=== PATIENT | female | born 1950 | race Caucasian/White ===

== ENCOUNTER 2019-05-17 10:52 | Outpatient (RCR) | payer MEDICARE, SELFPAY | END 2019-05-21 00:01 | LOC: ONCMED 10:52 | PROVIDERS: Family Provider Internal Medicine; Visit Provider Nurse Practitioner | DX: C90.00 Multiple myeloma not having achieved remission (principal); D70.1 Agranulocytosis secondary to cancer chemotherapy; T45.1X5A Adverse effect of antineoplastic and immunosuppressive drugs, initial encounter; I10 Essential (primary) hypertension; E78.5 Hyperlipidemia, unspecified; I25.10 Atherosclerotic heart disease of native coronary artery without angina pectoris; E03.9 Hypothyroidism, unspecified; K21.9 Gastro-esophageal reflux disease without esophagitis; M79.7 Fibromyalgia; M19.90 Unspecified osteoarthritis, unspecified site; F41.8 Other specified anxiety disorders; G89.29 Other chronic pain; M54.9 Dorsalgia, unspecified; Z95.5 Presence of coronary angioplasty implant and graft; Z79.899 Other long term (current) drug therapy; Z79.891 Long term (current) use of opiate analgesic; Z87.891 Personal history of nicotine dependence; Z79.02 Long term (current) use of antithrombotics/antiplatelets | CPT/HCPCS: 80053 ×3; 82784 ×6; 83615; 83883 ×4; 84155; 84156; 84165; 84166; 84439; 84443; 85025 ×3; 85651 ×2; 99214 ×2 ==

== ENCOUNTER 2019-05-23 06:37 | Outpatient (RCR) | payer MEDICARE, SELFPAY ==
--- NOTE | 2019-05-27 08:02 | ONC FU_ITS ---
Dr. Sanchez Patient Follow-Up Note Patient: Karely Armenta Unit #: [id number]: 1950 Dicatated By: Sean Sanchez M.D.Date of Visit:May 23, 2019 Onc Med Follow-up/Prog Note Chief Complaint: Myeloma. History of Present Illness: This is a 69 year-old woman with IgG kappa myeloma. She was found to be moderately anemic in December 2016 when she was admitted to the hospital with pneumonia. She also reported having had an illness the preceding summer, in October or November, which may have been tick fever, but that was never confirmed. Her follow-up laboratory studies with Dr. Garcia on 05/03/2017 included CBC showing hemoglobin 11.9 g with white blood cell count 5100 and platelet count 155,000. Her sedimentation rate was significantly elevated at 94 mm/hour. The chem profile showed normal renal function with BUN 13 and creatinine 0.96 mg/dL. Calcium was normal at 9.0 mg/dL. The total protein was elevated at 9.0 g/dL with albumin 4.0 g/dL and calculated serum globulin elevated at 5.0 g/dL. Protein electrophoresis showed a monoclonal protein quantitating at 2.5 g/dL. Immunofixation showed an IgG kappa paraprotein measuring 2.87 g/dL. Hepatits screen was nonreactive to hepatitis C, hepatitis Bs antigen, and hepatitis B core total Ab referral. The hepatitis B surface antibody was < 3.10. LDH was normal at 149 U/L. The beta-2 microglobulin was slightly elevated at 0.420 mg/dL. I had seen her initially on 05/11/2017. Repeat protein electrophoresis with immunofixation prior to that visit, from 05/09/2017, showed IgG kappa monoclonal protein quantitating at 2.87 g/dL. The kappa light chain was elevated at 177.96 mg/L with lambda light chain 1.73 mg/L and kappa/lambda ratio elevated at 102. On her further evaluation there was no monoclonal protein detected in a 24-hour urine specimen. Skeletal survey on 05/11/2017 showed cervical and lumbar spondylosis and bilateral hip joint osteoarthritic changes. There was no radiographic evidence of multiple myeloma. She underwent bone marrow aspiration/biopsy on 05/17/2017. The cellularity was estimated at 70% with 32% plasma cells. Iron stores were noted to be absent. The FISH panel for myeloma showed gain of chromosome 1q, deletions of RB 1 and LAMP1, and gain of IG. The standard chromosome analysis was normal. Overall, the findings were consistent with plasma cell neoplasm/myeloma. Staging PET/CT on 06/03/2017 showed a single FDG avid osteolytic site in the T1 vertebral body which was felt to possibly represent multiple myeloma. She then had further evaluation with MRI of the spine on 07/12/2017. There were significant degenerative changes in the cervical spine which included moderate central canal stenosis at C4-C5, C5-C6, and C7 as well as bilateral nerve root encroachment at C5, C6, and C7. There were also degenerative changes in the lumbar spine with interval STIR signal abnormality and enhancement of T10-L5 spinous processes suggesting possible myelomatous changes. The thoracic spine showed subtle diffuse signal and enhancement abnormality involving the T1 vertebral body. In correlation with the PET/CT findings, this was felt to be suspicious for neoplastic process, including multiple myeloma. There were no actual lytic lesions identified. She had further laboratory evaluation on 07/26/2017. Her CBC at that point showed hemoglobin down slightly to 10.1 g with white blood cell count 3700 and platelet count 122,000. Chem profile showed borderline renal function with BUN 12 and creatinine 1.1 mg/dL and calculated GFR 49 mm/hour. Repeat protein electrophoresis showed M protein increased to 3.22 g/dL compared to 2.87 g/dL in April. Her quantitative immunoglobulin levels showed elevated IgG at 3800 mg/dL and IgA low at less than 8.00 and IgM low at 5.50 mg/dL. Her serum iron studies showed normal transferrin saturation at 30.9%, but ferritin was low at 14.4 ng/mL. B12 level was in low-normal range at 288 pg/mL. She is seen for a follow-up visit on 08/14/2017. At that point she did agree to begin treatment with Velcade/Revlimid/dexamethasone. She began her cycle 1 of Velcade/Revlimid/dexamethasone on 09/11/2017. At that time she also began prophylaxis with Bactrim and acyclovir. When she returned for her day 4 Velcade injection, she had developed a significant skin eruption, and she was advised to stop both the Revlimid and the Bactrim. At day 8 she had a reduction in the Velcade dosage to 1.0 mg/m???, as her neutrophil count had dropped to 800 and she also was experiencing some neuropathy. The Revlimid remained on hold. As of 10/17/2017 the ANC was still only 700, and I did opt to delay her 2nd cycle of treatment. Her repeat protein electrophoresis from 10/09/2017 did show a decline in her M protein to 2.71 g/dL compared to a pretreatment level of 3.73 g/dL. She eventually continued with cycle 2 on 10/23/2017 with the Velcade dosage reduced at 1.0 mg/m???. The Revlimid dosage was reduced to 10 mg. Despite the reductions, her cycle 3 was delayed again due to neutropenia. Her repeat protein electrophoresis on 11/20/2017 showed essentially stable M protein level at 2.77 g/dL. She continued with cycle 3 on 12/04/2017. Her neutrophil count at that point was back up to 1900. With that cycle she stopped Revlimid after 1 day and her day for Velcade was held due to multiple symptoms including sore throat, swelling in her throat, hoarseness, and cough. She did receive day 8 Velcade, but her day 11 treatment also was held. She eventually did continue with a 4th cycle of treatment on 12/26/2017 and with the 5th cycle on a 01/16/2018, but with both of those she showed up for only 3 of her scheduled Velcade injections. As of cycle 5 her M protein was still basically stable at 2.82 g/dL. Beginning with cycle 6 her treatment was changed to a 28 day cycle with Velcade administered on days 1, 8, and 15, with Revlimid administered on a day schedule, and with dexamethasone administered weekly. With that change her compliance improved. As of 03/05/2018 she began her 7th cycle of treatment. At that point her serum protein electrophoresis had shown a significant decline in the M protein, to 1.41 g/dL. With continued treatment there was further decline in the M protein. As of 05/08/2018 on day 8 of cycle 9 it had decreased to 0.84 g/dL. However, at day 1 of cycle 10 on 05/30/2018 it increased slightly to 1.11 g/dL. At cycle 10 day 22 on 06/19/2018 it had stabilized at 1.09 g/dL. Restaging PET/CT on 06/23/2018 showed the T1 lesion to be weakly FDG positive and unchanged from the previous study in May 2017. Given those findings, I did opt to put her further treatment on hold. Her other medical illnesses include hypertension, hyperlipidemia, coronary artery disease, hypothyroidism, GERD, fibromyalgia, degenerative arthritis, and anxiety/depression. Her surgical/procedural history includes coronary angioplasty/stent placement 2015. She has arthroscopic left knee surgery, and she also has had surgery on the right shoulder. She has history of smoking for 25 years, from 1-3 packs of cigarettes daily. She quit smoking in 1989. She has had just occasional alcohol use. She is Religion, and she will not accept blood products. INTERIM HISTORY: Her repeat protein electrophoresis on 07/20/2018 showed an increase in the M protein to 1.4 g/dL. The free light chain assay showed elevated kappa light chain at 83.8 mg/L with lambda light chain 2.9 mg/L and elevated kappa/lambda ratio at 28.90. With those findings, she was advised to continue to second line treatment. She had indicated that she preferred not to be on any type of IV infusion. As such, I recommend a trial of therapy with Revlimid/ixazomib/dexamethasone. She began cycle 1 of Revlimid/ixazomib/dexamethasone on 08/29/2018. Due to her previous toxicities with Revlimid, it was initiated at a reduced dosage of 10 mg daily on a 21/28 day schedule with ixazomib dosed at 4 mg on days 18 and 15 and the dexamethasone dose at 40 mg weekly. She was able to tolerate it with acceptable toxicity, and she continued with cycle 2 on 09/26/2018 and with cycle 3 on 10/25/2018. Her repeat protein electrophoresis in September did show some decline in the M protein, to 1.0 g/dL. It then stabilized, and she continued her same treatment. As of 01/24/2019 the protein electrophoresis showed her quantitative M protein at 1.1 g/dL. The free light chain assay showed kappa light chain elevated at 105.1 mg/L, lambda light chain 7.0 mg/L, and elevated kappa/lambda ratio at 15.01. She continued treatment with Revlimid/ixazomib/dexamethasone. As of 04/22/2019 her protein electrophoresis showed M protein stable at 0.9 g/dL, but her free light chain assay continued to show elevated kappa/lambda ratio at 15.37. Her quantitative immunoglobulin levels showed IgG 1165 mg/dL with IgA low at 10 mg/dL and IgM low at 17 mg/dL. Her CBC showed stable hemoglobin at 12 g, but her ANC was low at 700. As of 05/06/2019 her treatment was put on hold due to persistent neutropenia. Her 24 urine protein electrophoresis showed no monoclonal protein. She is seen for a follow-up visit. She continues to complain that she is tired and achy. She has generalized pain in and between her joints. Her ECOG score is 1. Her appetite has been good. She has not had fever. She does have hot flashes and night sweating. She has some sinus drainage and cough. Her breathing has been pretty good. She has not been having chest pain. She occasionally has nausea. She has been having more heartburn. She occasionally has diarrhea. Bladder function has been OK. She has been having daily headaches for the last couple of weeks. She sometimes has dizziness. She has numbness/tingling in her hands and arms. Medications: amLODIPine Besylate 1 Tablet (of 5 mg) Oral daily, Body/Hair/Skin/Nails 2 Capsule Oral daily, [id number]-[id number] (50-325-40 mg) Tablet Oral four times a day, Cholecalciferol 2 (1000 Units) Capsule Oral daily, Curcumin 95 1 (500 mg) Capsule Oral daily PRN, Cymbalta 1 (60 mg) Capsule Delayed Release Particles Oral daily, Levothyroxine Sodium 1 (50 mcg) Tablet Oral daily, Lisinopril 1 (25 mg) Tablet Oral daily, LORazepam 0.5 - 1 (1 mg) Tablet Oral q 4 hours PRN, Metoprolol Succinate ER 1 (25 mg) Tablet SR 24 HR Oral b.i.d., Multivitamin Adult 1 Tablet Oral daily, Nitroglycerin 1 (400 mcg/spray) Aerosol, solution Translingual PRN, OxyCODONE HCl 1 (30 mg) Tablet Oral 5x/d PRN, Pantoprazole Sodium 1 Tablet (of 40 mg) Tablet, enteric coated Oral daily, Plavix 1 (75 mg) Tablet Oral daily, Pravastatin Sodium 1 (40 mg) Tablet Oral daily, Prochlorperazine Maleate 1 (10 mg) Tablet Oral four times a day PRN, Soma 1 (350 mg) Tablet Oral four times a day PRN, Vitamin E 1 Capsule Oral daily Allergies: Codeine Sulfate, LevoFLOXacin, and Vicodin. Review of Systems: Constitutional - She has been feeling really tired and achy. She has good appetite. She has not had fever. She does report having hot flashes and night sweating. ECOG score is 1, ENMT - She has some sinus congestion/drainage. No mouth sores. No sore throat or difficulty swallowing, Hematologic/Lymphatic - No abnormal bruising or bleeding, Respiratory - She has some shortness of breath, but her breathing is pretty good. She has had a little bit of cough. No pleuritic pain or hemoptysis, Cardiovascular - No angina pain. No palpitations, Gastrointestinal - She has occasional nausea. She has been having a little more heartburn. She has occasional diarrhea. No blood in the stool or black stools, Genitourinary (F) - No dysuria or hematuria. No urinary frequency. No urgency or incontinence, Musculoskeletal - She has generalized pain in and between her joints, Integumentary - No skin complications, Neurologic - She has been having daily headaches for a couple of weeks. She sometimes has dizziness. She has numbness and tingling in her hands and arms, Psychiatric - She is sometimes anxious, and she sometimes has depression. She has difficulty sleeping at night. Vital Signs: Performed on May 23, 2019 16:26 Height - 66.00 in Weight - 162.2 lbs (LOW) BSA - 1.83 sq.m BMI - 26.18 Temperature - 97.6 F (LOW) Pulse - 68 /min Respiration - 22 /min BP - 147/73 mm(hg) (HIGH) O2 Sat - 95 % (LOW) Pain - 7 Physical Examination: Constitutional - She looks pretty good generally, Eyes - Sclerae nonicteric. Conjunctivae clear, ENMT - No lesions noted in the oral cavity, Hematologic/Lymphatic - No cervical, clavicular, or axillary adenopathy, Respiratory - Lungs sound clear with good air movement bilaterally, Cardiovascular - Heart rhythm is regular. There is no murmur, gallop, or rub noted, Abdomen - Soft. Liver and spleen are not enlarged. There is no abdominal mass or ascites noted and there is no inguinal adenopathy, Extremities - No edema, Neurologic - No focal neurologic deficits noted. Lab/Imaging: CBC shows hemoglobin 11.9 g, WBC 5,500, and platelet count 170,000. The absolute neutrophil count is 3,400. Chem profile shows normal renal function with BUN 11 and creatinine 0.7 mg/dL. LDH is normal at 179 U/L. Impression: 1. Patient with IgG kappa myeloma. Bone marrow aspiration/biopsy on 05/17/2017 showed 32% plasma cells, consistent with myeloma. The FISH panel showed gain of chromosome 1q, deletions of RB 1 and LAMP1, and gain of IG. Her baseline M protein was 2.87 g/dL. She was mildly anemic and she had significantly elevated sedimentation rate. She had normal renal function and negative 24-hour urine protein electrophoresis. Skeletal survey showed no lytic bone involvement. PET/CT and MRI both showed findings suspicious for involvement of the T1 vertebral body. She does not appear to be overtly symptomatic with it. 2. Her bone marrow also showed absent storage iron. Her other medical illnesses include: 3. Hypertension. 4. Hyperlipidemia. 5. Coronary artery disease with angioplasty/stent placement in February 2016. 6. Hypothyroidism. 7. GERD. 8. Degenerative arthritis/degenerative disease of the spine. 9. Fibromyalgia. 10. Anxiety/depression. She has been undergoing treatment with Velcade/Revlimid/dexamethasone, cycle 1 beginning on 09/11/2017. Overall, her treatment was very suboptimal due in part to multiple side effects which included skin eruption and neutropenia, among others. Compliance also had been somewhat of an issue. Beginning with her 6th cycle of treatment, on 02/05/2018, her treatment was changed to a 28 day schedule with Velcade administered at a reduced dosage on days 1, 8, and 15, with Revlimid administered at 10 mg daily on a 21/28 day schedule, and with dexamethasone administered weekly. She began cycle 7 on 03/05/2018. Her serum protein electrophoresis at that point did show a significant decrease in the M protein, to 1.41 g/dL. She then continued treatment at the same dosages, but intermittently she still had moderately severe neutropenia. She had otherwise been tolerating the treatment well. She began her 10th cycle of treatment on 05/30/2018. At that point her M protein had stabilized at just over 1 g/dL. She appeared stable clinically, and restaging PET/CT showed only mild FDG activity in the T1 lesion. There were no other areas of FDG uptake, and there was no significant change compared to the prior study in May 2017. As on 07/20/2018 her repeat protein electrophoresis showed a significant increase in the M protein to 1.4 g/dL, and her free light chain assay showed an increase in the kappa/lambda ratio to28.90. With those findings, she was advised to proceed with second line treatment. She indicated that she preferred not to have any IV medication. As such, on 08/29/2018 she began a trial of therapy with Revlimid/ixazomib/dexamethasone. Due to her previous toxicities, the Revlimid was initiated at a reduced dosage of 10 mg daily on a 21/28 day schedule. As of October 2018, following 3 cycles of treatment, her M protein had stabilized at 1.0 g/dL. She continued her same treatment, and as of 01/24/2019 her M protein and her free light chain had remained stable. Her clinical status at that time also appeared stable, and she continued treatment with Revlimid, ixazomib, and dexamethasone at the same dosages. As of 04/22/2019 her protein electrophoresis showed M protein stable at 0.9 g/dL, but her free light chain assay continued to show elevated kappa/lambda ratio at 15.37. Her quantitative immunoglobulin levels showed IgG 1165 mg/dL with IgA low at 10 mg/dL and IgM low at 17 mg/dL. Her CBC showed stable hemoglobin at 12 g, but her ANC was low at 700. As of 05/06/2019 her treatment was put on hold due to persistent neutropenia. Her 24 urine protein electrophoresis showed no monoclonal protein. She has since then continued to complain of feeilng tired and achy. Her hemoglobin remains borderline low, but there has been a significant increase in her neutrophil count. Her current protein electrophoresis studies are pending. Plan: As she is planning to take a trip to [place] and [place], her treatment will remain on hold. She will return in one month. At that time I will plan to have her start 3rd-line treatment with daratumab in combination with carfilzomib and dexamethasone, subject to verification of insurance coverage. In the meantime, she will be given a prescription for Ceftin to keep on hand, as she does have immunosuppression associated with the myeloma. Signed By: Sean Sanchez M.D. <<Signature on File>>
== END 2019-05-23 15:00 | disposition home or self-care (01) ==
LOC: ONCMED 06:37
PROVIDERS: Family Provider Internal Medicine; PCP Internal Medicine; Visit Provider Internal Medicine Medical Oncology
DX: C90.00 Multiple myeloma not having achieved remission (principal); I10 Essential (primary) hypertension; E78.5 Hyperlipidemia, unspecified; I25.10 Atherosclerotic heart disease of native coronary artery without angina pectoris; E03.9 Hypothyroidism, unspecified; K21.9 Gastro-esophageal reflux disease without esophagitis; M79.7 Fibromyalgia; M19.90 Unspecified osteoarthritis, unspecified site; F41.8 Other specified anxiety disorders; Z79.899 Other long term (current) drug therapy; Z79.891 Long term (current) use of opiate analgesic; Z95.5 Presence of coronary angioplasty implant and graft; Z87.891 Personal history of nicotine dependence
CPT/HCPCS: 99214

== ENCOUNTER 2019-07-05 05:42 | Outpatient (RCR) | payer MEDICARE, SELFPAY ==
[2019-07-02 11:49] LABS: Basophils % 0.3 %; Eosinophils % 0.6 %; Hematocrit 36.9 % (37.0-47.0); Hemoglobin 12.4 g/dL (11.5-15.3); Lymphocytes # 1.9 10^3/uL (0.8-4.8); Lymphocytes % 53.7 %; Mean Corpuscular HGB Conc 33.6 g/dL (30.0-36.0); Mean Corpuscular Hemoglobin 31.1 pg (28.0-34.0); Mean Corpuscular Volume 92.5 fL (81-99); Mean Platelet Volume 9.3 fL (7.4-10.4); Monocytes # 0.2 10^3/uL (0.2-0.9); Monocytes % 5.1 %; Neutrophils # 1.4 10^3/uL (1.8-7.7); Nucleated Red Blood Cells % 0 %; Platelet Count 196 10^3/cmm (130-400); Red Blood Count 3.99 10^6/uL (4.1-5.3); Red Cell Distribution Width 16.2 % (12.1-15.1); White Blood Count 3.5 10^3/uL (4.0-10.0)
[2019-07-02 12:11] LABS: Alanine Aminotransferase 14 U/L (0-33); Albumin Level 3.7 g/dL (3.5-5.2); Alkaline Phosphatase 125 IU/L (35-105); Anion Gap 16.2 (5-19); Aspartate Amino Transferase 19 U/L (0-32); Blood Urea Nitrogen 16 mg/dL (8-23); Calcium 9.3 mg/dL (8.5-10.5); Carbon Dioxide 26 mmol/L (22-29); Chloride 100 mmol/L (98-107); Globulin 4.6 g/dL (1.3-4.6); Glucose 99 mg/dL (65-115); Potassium 4.2 mmol/L (3.5-5.1); Sodium 138 mmol/L (136-145); Total Bilirubin 0.4 mg/dL (0.15-1.2); Total Protein 8.3 g/dL (6.6-8.7)
[2019-07-02 12:33] LABS: Erythrocyte Sedimentation Rate 48 mm/hr (0-15)
[2019-07-02 12:52] LABS: Immunoglobulin IGG 2608 mg/dL (700-1600)
[2019-07-02 13:09] LABS: Immunoglobulin IGA 10 mg/dL (70-400); Immunoglobulin IGM 18 mg/dL (40-230)
[2019-07-03 07:46] LABS: PROTEIN, TOTAL 7.3 g/dL (6.1-8.1)
[2019-07-03 15:27] LABS: ALBUMIN 3.7 g/dL (3.8-4.8); ALPHA 1 GLOBULIN 0.4 g/dL (0.2-0.3); ALPHA 2 GLOBULIN 0.7 g/dL (0.5-0.9); BETA 1 GLOBULIN 0.3 g/dL (0.4-0.6); BETA 2 GLOBULIN 0.2 g/dL (0.2-0.5); GAMMA GLOBULIN 2.1 g/dL (0.8-1.7)
[2019-07-03 16:16] LABS: KAPPA LIGHT CHAIN, FREE, SERUM 143.2 mg/L (3.3-19.4); KAPPA/LAMBDA LIGHT CHAINS FREE 49.38 (0.26-1.65); LAMBDA LIGHT CHAIN, FREE, SERU 2.9 mg/L (5.7-26.3)
--- NOTE | 2019-07-09 06:09 | ONC FU_ITS ---
Dr. Sanchez Patient Follow-Up Note Patient: Karely Armenta Unit #: [id number]: 1950 Dicatated By: Sean Sanchez M.D.Date of Visit:Jul 05, 2019 Onc Med Follow-up/Prog Note Chief Complaint: Myeloma. History of Present Illness: This is a 69 year-old woman with IgG kappa myeloma. She was found to be moderately anemic in December 2016 when she was admitted to the hospital with pneumonia. She also reported having had an illness the preceding summer, in October or November, which may have been tick fever, but that was never confirmed. Her follow-up laboratory studies with Dr. Garcia on 05/03/2017 included CBC showing hemoglobin 11.9 g with white blood cell count 5100 and platelet count 155,000. Her sedimentation rate was significantly elevated at 94 mm/hour. The chem profile showed normal renal function with BUN 13 and creatinine 0.96 mg/dL. Calcium was normal at 9.0 mg/dL. The total protein was elevated at 9.0 g/dL with albumin 4.0 g/dL and calculated serum globulin elevated at 5.0 g/dL. Protein electrophoresis showed a monoclonal protein quantitating at 2.5 g/dL. Immunofixation showed an IgG kappa paraprotein measuring 2.87 g/dL. Hepatits screen was nonreactive to hepatitis C, hepatitis Bs antigen, and hepatitis B core total Ab referral. The hepatitis B surface antibody was < 3.10. LDH was normal at 149 U/L. The beta-2 microglobulin was slightly elevated at 0.420 mg/dL. I had seen her initially on 05/11/2017. Repeat protein electrophoresis with immunofixation prior to that visit, from 05/09/2017, showed IgG kappa monoclonal protein quantitating at 2.87 g/dL. The kappa light chain was elevated at 177.96 mg/L with lambda light chain 1.73 mg/L and kappa/lambda ratio elevated at 102. On her further evaluation there was no monoclonal protein detected in a 24-hour urine specimen. Skeletal survey on 05/11/2017 showed cervical and lumbar spondylosis and bilateral hip joint osteoarthritic changes. There was no radiographic evidence of multiple myeloma. She underwent bone marrow aspiration/biopsy on 05/17/2017. The cellularity was estimated at 70% with 32% plasma cells. Iron stores were noted to be absent. The FISH panel for myeloma showed gain of chromosome 1q, deletions of RB 1 and LAMP1, and gain of IG. The standard chromosome analysis was normal. Overall, the findings were consistent with plasma cell neoplasm/myeloma. Staging PET/CT on 06/03/2017 showed a single FDG avid osteolytic site in the T1 vertebral body which was felt to possibly represent multiple myeloma. She then had further evaluation with MRI of the spine on 07/12/2017. There were significant degenerative changes in the cervical spine which included moderate central canal stenosis at C4-C5, C5-C6, and C7 as well as bilateral nerve root encroachment at C5, C6, and C7. There were also degenerative changes in the lumbar spine with interval STIR signal abnormality and enhancement of T10-L5 spinous processes suggesting possible myelomatous changes. The thoracic spine showed subtle diffuse signal and enhancement abnormality involving the T1 vertebral body. In correlation with the PET/CT findings, this was felt to be suspicious for neoplastic process, including multiple myeloma. There were no actual lytic lesions identified. She had further laboratory evaluation on 07/26/2017. Her CBC at that point showed hemoglobin down slightly to 10.1 g with white blood cell count 3700 and platelet count 122,000. Chem profile showed borderline renal function with BUN 12 and creatinine 1.1 mg/dL and calculated GFR 49 mm/hour. Repeat protein electrophoresis showed M protein increased to 3.22 g/dL compared to 2.87 g/dL in April. Her quantitative immunoglobulin levels showed elevated IgG at 3800 mg/dL and IgA low at less than 8.00 and IgM low at 5.50 mg/dL. Her serum iron studies showed normal transferrin saturation at 30.9%, but ferritin was low at 14.4 ng/mL. B12 level was in low-normal range at 288 pg/mL. She is seen for a follow-up visit on 08/14/2017. At that point she did agree to begin treatment with Velcade/Revlimid/dexamethasone. She began her cycle 1 of Velcade/Revlimid/dexamethasone on 09/11/2017. At that time she also began prophylaxis with Bactrim and acyclovir. When she returned for her day 4 Velcade injection, she had developed a significant skin eruption, and she was advised to stop both the Revlimid and the Bactrim. At day 8 she had a reduction in the Velcade dosage to 1.0 mg/m???, as her neutrophil count had dropped to 800 and she also was experiencing some neuropathy. The Revlimid remained on hold. As of 10/17/2017 the ANC was still only 700, and I did opt to delay her 2nd cycle of treatment. Her repeat protein electrophoresis from 10/09/2017 did show a decline in her M protein to 2.71 g/dL compared to a pretreatment level of 3.73 g/dL. She eventually continued with cycle 2 on 10/23/2017 with the Velcade dosage reduced at 1.0 mg/m???. The Revlimid dosage was reduced to 10 mg. Despite the reductions, her cycle 3 was delayed again due to neutropenia. Her repeat protein electrophoresis on 11/20/2017 showed essentially stable M protein level at 2.77 g/dL. She continued with cycle 3 on 12/04/2017. Her neutrophil count at that point was back up to 1900. With that cycle she stopped Revlimid after 1 day and her day for Velcade was held due to multiple symptoms including sore throat, swelling in her throat, hoarseness, and cough. She did receive day 8 Velcade, but her day 11 treatment also was held. She eventually did continue with a 4th cycle of treatment on 12/26/2017 and with the 5th cycle on a 01/16/2018, but with both of those she showed up for only 3 of her scheduled Velcade injections. As of cycle 5 her M protein was still basically stable at 2.82 g/dL. Beginning with cycle 6 her treatment was changed to a 28 day cycle with Velcade administered on days 1, 8, and 15, with Revlimid administered on a 21/28 day schedule, and with dexamethasone administered weekly. With that change her compliance improved. As of 03/05/2018 she began her 7th cycle of treatment. At that point her serum protein electrophoresis had shown a significant decline in the M protein, to 1.41 g/dL. With continued treatment there was further decline in the M protein. As of 05/08/2018 on day 8 of cycle 9 it had decreased to 0.84 g/dL. However, at day 1 of cycle 10 on 05/30/2018 it increased slightly to 1.11 g/dL. At cycle 10 day 22 on 06/19/2018 it had stabilized at 1.09 g/dL. Restaging PET/CT on 06/23/2018 showed the T1 lesion to be weakly FDG positive and unchanged from the previous study in May 2017. Given those findings, I did opt to put her further treatment on hold. Her other medical illnesses include hypertension, hyperlipidemia, coronary artery disease, hypothyroidism, GERD, fibromyalgia, degenerative arthritis, and anxiety/depression. Her surgical/procedural history includes coronary angioplasty/stent placement 2015. She has arthroscopic left knee surgery, and she also has had surgery on the right shoulder. She has history of smoking for 25 years, from 1-3 packs of cigarettes daily. She quit smoking in 1989. She has had just occasional alcohol use. She is [employer], and she will not accept blood products. INTERIM HISTORY: Her repeat protein electrophoresis on 07/20/2018 showed an increase in the M protein to 1.4 g/dL. The free light chain assay showed elevated kappa light chain at 83.8 mg/L with lambda light chain 2.9 mg/L and elevated kappa/lambda ratio at 28.90. With those findings, she was advised to continue to second line treatment. She had indicated that she preferred not to be on any type of IV infusion. As such, I recommend a trial of therapy with Revlimid/ixazomib/dexamethasone. She began cycle 1 of Revlimid/ixazomib/dexamethasone on 08/29/2018. Due to her previous toxicities with Revlimid, it was initiated at a reduced dosage of 10 mg daily on a 21/28 day schedule with ixazomib dosed at 4 mg on days 18 and 15 and the dexamethasone dose at 40 mg weekly. She was able to tolerate it with acceptable toxicity, and she continued with cycle 2 on 09/26/2018 and with cycle 3 on 10/25/2018. Her repeat protein electrophoresis in September did show some decline in the M protein, to 1.0 g/dL. It then stabilized, and she continued her same treatment. As of 01/24/2019 the protein electrophoresis showed her quantitative M protein at 1.1 g/dL. The free light chain assay showed kappa light chain elevated at 105.1 mg/L, lambda light chain 7.0 mg/L, and elevated kappa/lambda ratio at 15.01. She continued treatment with Revlimid/ixazomib/dexamethasone. As of 04/22/2019 her protein electrophoresis showed M protein stable at 0.9 g/dL, but her free light chain assay continued to show elevated kappa/lambda ratio at 15.37. Her quantitative immunoglobulin levels showed IgG 1165 mg/dL with IgA low at 10 mg/dL and IgM low at 17 mg/dL. Her CBC showed stable hemoglobin at 12 g, but her ANC was low at 700. As of 05/06/2019 her treatment was put on hold due to persistent neutropenia. Her 24 urine protein electrophoresis showed no monoclonal protein. She is seen for a follow-up visit. She recently returned from a trip to [place]. While she was there she was diagnosed and treated for pneumonia. She remains on antibiotic coverage with doxycycline. She is getting better, but her energy is still low. She had fever with the pneumonia, but that has resolved. She occasionally has sweating at night. Her breathing is better, and her cough is going away now. She has GI or complaints. She has pain in her shoulders and in her low back, and she continues to have pain in the right groin area. She has some numbness/tingling in her hands. Medications: amLODIPine Besylate 1 Tablet (of 5 mg) Oral daily, Body/Hair/Skin/Nails 2 Capsule Oral daily, [id number]-MMOV-Jzjjwtqz (50-325-40 mg) Tablet Oral four times a day, Cholecalciferol 2 (1000 Units) Capsule Oral daily, Curcumin 95 1 (500 mg) Capsule Oral daily PRN, Cymbalta 1 (60 mg) Capsule Delayed Release Particles Oral daily, Levothyroxine Sodium 1 (50 mcg) Tablet Oral daily, Lisinopril 1 (25 mg) Tablet Oral daily, LORazepam 0.5 - 1 (1 mg) Tablet Oral q 4 hours PRN, Metoprolol Succinate ER 1 (25 mg) Tablet SR 24 HR Oral b.i.d., Multivitamin Adult 1 Tablet Oral daily, Nitroglycerin 1 (400 mcg/spray) Aerosol, solution Translingual PRN, OxyCODONE HCl 1 (30 mg) Tablet Oral 5x/d PRN, Pantoprazole Sodium 1 Tablet (of 40 mg) Tablet, enteric coated Oral daily, Plavix 1 (75 mg) Tablet Oral daily, Pravastatin Sodium 1 (40 mg) Tablet Oral daily, Prochlorperazine Maleate 1 (10 mg) Tablet Oral four times a day PRN, Soma 1 (350 mg) Tablet Oral four times a day PRN, Vitamin E 1 Capsule Oral daily Allergies: Codeine Sulfate, LevoFLOXacin, and Vicodin. Review of Systems: Constitutional - Her energy is pretty low. She is able to do light work. Her appetite is good. She had fever with the pneumonia. [facility] ECOG score is 1, ENMT - No sinus congestion/drainage. No mouth sores. No sore throat or difficulty swallowing, Hematologic/Lymphatic - No abnormal bruising or bleeding, Respiratory - She had shortness of breath, but her brething is OK now. Her cough is going away. No pleuritic pain or hemoptysis, Cardiovascular - No angina pain. No palpitations, Gastrointestinal - No nausea or vomiting. Her acid reflux is adequately managed with medication. No diarrhea or constipation. No blood in the stool or black stools, Genitourinary (F) - No dysuria or hematuria. No urinary frequency. No urgency or incontinence, Musculoskeletal - She has pain in her right groin area. She has pain in her shoulders and in her lower back, Integumentary - No skin complications, Neurologic - She has headaches. She occasionally has dizziness. She has numbness/tingling in her hands, Psychiatric - No anxiety or depression. She does not sleep well at night. Vital Signs: Performed on Jul 05, 2019 10:32 Height - 66.00 in Weight - 162.2 lbs BSA - 1.83 sq.m BMI - 26.18 Temperature - 97.4 F (LOW) Pulse - 69 /min Respiration - 18 /min BP - 149/67 mm(hg) (HIGH) O2 Sat - 100 % Pain - 6 Physical Examination: Constitutional - She does not appear acutely ill, Eyes - Sclerae nonicteric. Conjunctivae clear, ENMT - No lesions noted in the oral cavity, Hematologic/Lymphatic - No cervical, clavicular, or axillary adenopathy, Respiratory - Lungs show slightly coarse breath sounds bilaterally, Cardiovascular - Heart rhythm is regular. There is no murmur, gallop, or rub noted, Abdomen - Soft. Liver and spleen are not enlarged. There is no abdominal mass or ascites noted and there is no inguinal adenopathy, Extremities - No edema, Neurologic - No focal neurologic deficits noted. Lab/Imaging: Test performed on Jul 02, 2019 11:25 Sodium 138 mmol/L Potassium 4.2 mmol/L Chloride 100 mmol/L CO2 26 mmol/L Anion Gap 16.2 BUN 16 mg/dL Creatinine 0.7 mg/dL Cr Clearance (Est) 86.9000 mL/min eGFR 83.0 mL/min Glucose 99 mg/dL Calcium 9.3 mg/dL Protein, Total 8.3 g/dL Albumin 3.7 g/dL Globulin 4.6 g/dL Bilirubin, Total 0.4 mg/dL ALT (SGPT) 14 U/L AST (SGOT) 19 U/L Alkaline Phosphatase 125 IU/L ESR (Sed Rate) 48 mm/hr WBC 3.5 10 3/uL RBC 3.99 10 6/uL HGB 12.4 g/dL HCT 36.9 % MCV 92.5 fL MCH 31.1 pg MCHC 33.6 g/dL RDW 16.2 % Platelet Count 196 10 3/cmm MPV 9.3 fL Neutrophils 1.4 10 3/uL Lymphocytes 1.9 10 3/uL Monocytes 0.2 10 3/uL Eosinophils 0.0 10 3/uL Basophils 0.0 10 3/uL Neutrophil % 40.0 % Lymphocyte % 53.7 % Monocyte % 5.1 % Eosinophil % 0.6 % Basophils % 0.3 % IgG 2608 mg/dL IgA 10 mg/dL IgM 18 mg/dL Her protein eclectrophoreis showed an increase in the M protein to 2.0 g/dL. The free light chain assay showed elevated kappa light assay to 143.2 mg/L and elevated kappa/ratio at 49.38. Impression: 1. Patient with IgG kappa myeloma. Bone marrow aspiration/biopsy on 05/17/2017 showed 32% plasma cells, consistent with myeloma. The FISH panel showed gain of chromosome 1q, deletions of RB 1 and LAMP1, and gain of IG. Her baseline M protein was 2.87 g/dL. She was mildly anemic and she had significantly elevated sedimentation rate. She had normal renal function and negative 24-hour urine protein electrophoresis. Skeletal survey showed no lytic bone involvement. PET/CT and MRI both showed findings suspicious for involvement of the T1 vertebral body. She does not appear to be overtly symptomatic with it. 2. Her bone marrow also showed absent storage iron. Her other medical illnesses include: 3. Hypertension. 4. Hyperlipidemia. 5. Coronary artery disease with angioplasty/stent placement in February 2016. 6. Hypothyroidism. 7. GERD. 8. Degenerative arthritis/degenerative disease of the spine. 9. Fibromyalgia. 10. Anxiety/depression. She has been undergoing treatment with Velcade/Revlimid/dexamethasone, cycle 1 beginning on 09/11/2017. Overall, her treatment was very suboptimal due in part to multiple side effects which included skin eruption and neutropenia, among others. Compliance also had been somewhat of an issue. Beginning with her 6th cycle of treatment, on 02/05/2018, her treatment was changed to a 28 day schedule with Velcade administered at a reduced dosage on days 1, 8, and 15, with Revlimid administered at 10 mg daily on a 21/28 day schedule, and with dexamethasone administered weekly. She began cycle 7 on 03/05/2018. Her serum protein electrophoresis at that point did show a significant decrease in the M protein, to 1.41 g/dL. She then continued treatment at the same dosages, but intermittently she still had moderately severe neutropenia. She had otherwise been tolerating the treatment well. She began her 10th cycle of treatment on 05/30/2018. At that point her M protein had stabilized at just over 1 g/dL. She appeared stable clinically, and restaging PET/CT showed only mild FDG activity in the T1 lesion. There were no other areas of FDG uptake, and there was no significant change compared to the prior study in May 2017. As on 07/20/2018 her repeat protein electrophoresis showed a significant increase in the M protein to 1.4 g/dL, and her free light chain assay showed an increase in the kappa/lambda ratio to28.90. With those findings, she was advised to proceed with second line treatment. She indicated that she preferred not to have any IV medication. As such, on 08/29/2018 she began a trial of therapy with Revlimid/ixazomib/dexamethasone. Due to her previous toxicities, the Revlimid was initiated at a reduced dosage of 10 mg daily on a 21/28 day schedule. As of October 2018, following 3 cycles of treatment, her M protein had stabilized at 1.0 g/dL. She continued her same treatment, and as of 01/24/2019 her M protein and her free light chain had remained stable. Her clinical status at that time also appeared stable, and she continued treatment with Revlimid, ixazomib, and dexamethasone at the same dosages. As of 04/22/2019 her protein electrophoresis showed M protein stable at 0.9 g/dL, but her free light chain assay continued to show elevated kappa/lambda ratio at 15.37. Her quantitative immunoglobulin levels showed IgG 1165 mg/dL with IgA low at 10 mg/dL and IgM low at 17 mg/dL. Her CBC showed stable hemoglobin at 12 g, but her ANC was low at 700. As of 05/06/2019 her treatment was put on hold due to persistent neutropenia. Her 24 hour urine protein electrophoresis showed no monoclonal protein. She now has evidence of disease progression by protein electrophoresis. She is having bone more bone pain, and she recently required treatment for pneumonia. Plan: She will be scheduled for a restaging PET/CT. She will then need to start a 3rd ilne treatment. This will most likely be a daratumab/carfilzomib/dexamethasone combination, but that will be subject to verification of insurance coverage. In the meantime, she continues immediate release oxycodone 30 mg as needed for pain. Signed By: Sean Sanchez M.D. <<Signature on File>>
== END 2019-07-20 23:59 | disposition home or self-care (01) ==
LOC: ONCMED 05:42
PROVIDERS: Family Provider Internal Medicine; PCP Internal Medicine; Visit Provider Internal Medicine Medical Oncology
DX: C90.00 Multiple myeloma not having achieved remission (principal); G89.3 Neoplasm related pain (acute) (chronic); I10 Essential (primary) hypertension; E78.5 Hyperlipidemia, unspecified; I25.10 Atherosclerotic heart disease of native coronary artery without angina pectoris; E03.9 Hypothyroidism, unspecified; K21.9 Gastro-esophageal reflux disease without esophagitis; M79.7 Fibromyalgia; M19.90 Unspecified osteoarthritis, unspecified site; F41.8 Other specified anxiety disorders; Z79.891 Long term (current) use of opiate analgesic; Z95.5 Presence of coronary angioplasty implant and graft; Z87.891 Personal history of nicotine dependence; Z87.01 Personal history of pneumonia (recurrent)
CPT/HCPCS: 80053; 82784; 83883; 84155; 84165; 85025; 85651; 99214

== ENCOUNTER 2019-07-22 14:36 | Outpatient (CLI) | payer MEDICARE, SELFPAY ==
--- NOTE | 2019-07-22 14:46 | XR_ITS ---
WS: [id number] XR chest 2V* [id number] REASON FOR EXAM: R SIDED PNEUMONIA FINDINGS: Comparisons were made to January 26, 2017. The lung coker are well aerated. No pneumonia, pleural effusion, pulmonary edema, mass effect, or pn eumothorax. The heart mediastinum are normal. Previous resection of the distal clavicle. The hilum and apices are normal. XR/XR chest 2V* [id number] IMPRESSION: No active cardiopulmonary changes.
== END 2019-07-22 14:37 | disposition home or self-care (01) ==
PROVIDERS: Family Provider Internal Medicine; PCP Internal Medicine; Visit Provider Internal Medicine
DX: J18.9 Pneumonia, unspecified organism (principal)
CPT/HCPCS: 71046

== ENCOUNTER 2019-07-29 07:38 | Day surgery (SDC) | payer MEDICARE, SELFPAY ==
[2019-07-26 14:58] VITALS: BMI 25.2
--- NOTE | 2019-07-29 | SCC_ITS ---
Procedure Done: Placement of PowerPort in the left subclavian vein 45.1 seconds of fluoroscopic guidance, for a cumulative dose of 6.98 mGy, was provided to Dr. Bernstein by the radiology department. C-arm images of the chest were saved for the patient's permanent record. MARISEL
--- NOTE | 2019-07-29 07:51 | SC_ITS ---
WS: [id number] C-arm fluoroscopy of the left chest, 07/29/2019 Clinical Data: intra-op Comparison: PA and lateral chest, 07/22/2019 Findings: A left Port-A-Cath has been inserted. The distal tip ends in the superior vena cava. No pneumothorax is seen. SC/C-arm FL for CVA [id number] Impression: Satisfactory insertion of left Port-A-Cath.
[2019-07-29 07:53] VITALS: BP 142/86; PULSE 67; RESP 18; TEMP 37.2; O2SAT 93
--- NOTE | 2019-07-29 07:55 | W.PM.OPSUD ---
Surgery/Procedure H&P Update DATE OF PROCEDURE: July 29, 2019 DATE H&P PERFORMED: 07/22/19 H&P UPDATE INFORMATION: I have reviewed H&P completed within last 30 days, I have examined patient prior to procedure and No changes to prior documentation PREOP DIAGNOSIS: myeloma PLANNED PROCEDURE: Operation Date: 07/29/19 07:50 Proposed Procedures p Portacath Placement 11649 C90.00(Not Applicable) - Eric Bernstein MD
[2019-07-29] MEDS: sodium chloride 0.9% 1,000 ML 30 ML IV (08:06)
--- NOTE | 2019-07-29 08:13 | ANES.PREANE2 ---
Pre-Anesthetic Assessment Pre-Anesthetic Assessment: Height/Weight: Height 1.7 m Weight 73.028 kg Temp Pulse Resp BP Pulse Ox 98.9 F 67 18 142/86 93 07/29/19 07:53 07/29/19 07:53 07/29/19 07:53 07/29/19 07:53 07/29/19 07:53 Preop Diagnosis: myeloma Proposed Procedure: Operation Date: 07/29/19 07:50 Proposed Procedures p Portacath Placement 56621 C90.00(Not Applicable) - Eric Bernstein MD Was Beta Carolyn taken within 24 hours: N/A Last intake: Intake Last Liquid Date 07/28/19 Last Liquid Time 21:00 Last Solid Date 07/28/19 Last Solid Time 21:00 Social: Social History: Tobacco Comment: h/o smoking Exam: Pre-Anes Outpt Exam: alert, oriented x 3, clear to auscultation bilaterally and regular rate & rhythm Airway: Submandibular: WNL Cervical ROM: WNL MP: 1 Dentition: Caps Additional comments: upper caps Pulmonary: Pulmonary: COPD (mild copd) CV/HEM: CV/HEM: CAD (stentX1 5yrs ago) : : None reported Hepatic: Hepatic: None reported GI: GI: GERD (Well controlled) Metabolic: Metabolic: Thyroid Musc/skel: Comments: Chronic back pain and opioids Anesthetic Plan: ASA status: 3 Anesthesia: MAC Risk of > 500 ml blood loss (7ml/kg in children): No Meds/Allergies Current Medications: Current Medications Generic Name Dose Route Start Last Admin Trade Name Freq PRN Reason Stop Dose Admin Sodium Chloride 1,000 mls @ 30 ml s/hr 07/29/19 07:15 07/29/19 08:06 Sodium Chloride 0.9% IV 07/30/19 07:14 30 mls/hr .Q24H ANA Administration Data Anesthesia Cardiac Studies: No Data to Display
[2019-07-29] MEDS: heparin, porcine 1,000 unit/mL INJ 10 mL 10000 UNIT IRRIGATION (09:08)
[2019-07-29] MEDS: lidocaine 1% INJ 20 mL SUBCUT (09:17)
--- NOTE | 2019-07-29 09:25 | PM.OP ---
Operative Report Date of procedure: July 29, 2019 Pre-op Diagnosis: myeloma Post-op diagnosis: same Procedure Done: Placement of PowerPort in the left subclavian vein Fluoroscopic guidance and interpretation for placement of catheter Pathology: none sent Surgeon: Eric Bernstein Anesthesia: MAC Condition: stable Disposition: same day Procedure: The patient was taken to the Operating Room and the chest and neck bilaterally were prepped and draped in a sterile manner after the antibiotic had been administered and shoulder rolls had been placed. A total of 10 mL of 1% lidocaine with 0.5% Marcaine was infiltrated under the clavicle on the left side at the site of the planned entry into the subclavian vein. An introducer needle was then used to access the subclavian vein under the clavicle and after withdrawing blood syringe was removed and a guidewire passed under fluoroscopy into the superior vena cava. The site of the planned port was then marked on the chest and a 15 blade was used to make a 3 cm skin incision this was extended into the subcutaneous tissue using electrocautery and a subcutaneous pocket over the pectoralis fascia was created 2-0 Vicryl suture was used to suture the port to the pectoral fascia in the pocket on 3 sides. The catheter, after having been flushed with hep saline, was attached to the tunneler and a tunnel created between the port site and the subclavian vein entry site. Under fluoroscopy the dilator sheath was passed over the guidewire into the proximal superior vena cava. The inner dilator was removed and the sheath left behind and~ the catheter was introduced through the peel-away sheath with the tip in the superior vena cava. The peel-away sheath was removed. The proximal end of the catheter was cut to the right size and was attached to the port. Using a [place] needle the port was accessed, it withdrew blood easily and flushed easily. A final 5cc of heparin was used to flush the PowerPort. The subcutaneous tissue was approximated using interrupted 3-0 Vicryl sutures and the skin at the introducer site and the port site was closed using subcuticular running 4-0 Monocryl sutures. Surgical glue was applied and the patient was stable throughout the procedure. Fluoroscopic guidance and interpretation was performed for introduction of the guidewire in the left subclavian vein, passage of dilator and placement of catheter tip in the distal superior vena cava.
[2019-07-29 09:29] VITALS: BP 145/93; PULSE 72; RESP 18; TEMP 36.6; O2SAT 97
[2019-07-29 09:43] VITALS: BP 149/84; PULSE 70; RESP 18; O2SAT 96
--- NOTE | 2019-07-29 12:57 | PM.PACU ---
PACU note Post-Anesthesia Exam: awake and vital signs stable Disposition: discharged
== END 2019-07-29 10:12 | disposition home or self-care (01) ==
PROVIDERS: Family Provider Internal Medicine; PCP Internal Medicine; Visit Provider Surgery
PROC: (CPT 36561; principal; 2019-07-29 07:50)
DX: C90.00 Multiple myeloma not having achieved remission (principal); E78.5 Hyperlipidemia, unspecified; I10 Essential (primary) hypertension; Z95.5 Presence of coronary angioplasty implant and graft; Z82.49 Family history of ischemic heart disease and other diseases of the circulatory system; Z83.3 Family history of diabetes mellitus; Z87.891 Personal history of nicotine dependence; J44.9 Chronic obstructive pulmonary disease, unspecified; I25.10 Atherosclerotic heart disease of native coronary artery without angina pectoris; K21.9 Gastro-esophageal reflux disease without esophagitis
CPT/HCPCS: 36561; 12345; 76000; 77001; C1788; J0690; J1644; J2001; J2250; J2704; J3010; J3490; J7030

== ENCOUNTER 2019-08-20 06:42 | Outpatient (RCR) | payer MEDICARE, SELFPAY ==
--- NOTE | 2019-07-23 14:31 | USCV_ITS ---
Karely Armenta Age: 69 Gender: F : 1950 Exam Date: 07/23/2019 13:38 Ordering Phys: Sean Sanhcez MD Technologist: Cyndee Davis Exam Location: [facility] [place] Indication: MULTIPLE MYELOMA BP: 126 / 75 HR: 76 Rhythm: Sinus Technical Quality: Adequate MEASUREMENTS (Male / Female) Normal Values 2D ECHO LV Diastolic Diameter PLAX 3.2 cm 4.2 - 5.9 / 3.9 - 5.3 cm LV Systolic Diameter PLAX 2.4 cm LV Chamber Size 3.0 cm IVS Diastolic Thickness 0.9 cm 0.6 - 1.0 / 0.6 - 0.9 cm IVS Systolic Thickness 0.9 cm LVPW Diastolic Thickness 1.8 cm 0.6 - 1.0 / 0.6 - 0.9 cm LVPW Systolic Thickness 1.7 cm RV Chamber Size 2.3 cm LVOT Diameter 2.0 cm LV Ejection Fraction 2D Teich 51.3 % LV Ejection Fraction MOD 2C 62.0 % LV Ejection Fraction 2C AL 63.4 % LA Diameter 3.7 cm LA Width 3.1 cm LA Height 3.5 cm RA Width 2.1 cm RA Height 2.9 cm Aorta at Sinotubular Diameter 2.8 cm M-MODE LV Diastolic Diameter MM 4.7 cm 4.2 - 5.9 / 3.9 - 5.3 cm LV Systolic Diameter MM 2.7 cm LV Ejection Fraction MM Teich 72.7 % IVS Diastolic Thickness MM 0.6 cm 0.6 - 1.0 / 0.6 - 0.9 cm IVS Systolic Thickness MM 1.0 cm LVPW Diastolic Thickness MM 0.9 cm 0.6 - 1.0 / 0.6 - 0.9 cm LVPW Systolic Thickness MM 1.2 cm Aortic Annulus Diameter 2.9 cm LA Ao Ratio MM 1.3 MV E Point Septal Separation 0.5 cm DOPPLER AV Peak Velocity 123.0 cm/s LVOT Peak Velocity 103.0 cm/s AV Area Cont Eq vti 2.7 cm squared AV Area Cont Eq pk 2.7 cm squared MV Area PHT 3.5 cm squared Mitral E to A Ratio 0.7 MV E' Velocity 8.0 cm/s Mitral E to MV E' Ratio 7.8 Mitral E to LV E' Lateral Ratio 8.7 Mitral E to LV E' Septal Ratio 7.1 TR Peak Velocity 291.0 cm/s TR Peak Gradient 34.0 mmHg TV Peak E Velocity 67.0 cm/s Right Atrial Pressure 3.0 mmHg Pulmonary Artery Systolic Pressu 36.9 mmHg PV Peak Velocity 78.0 cm/s RV Acceleration Time 0.1 s RV Ejection Time 0.3 s RV AcT/ET 0.2 FINDINGS Left Ventricle Normal left ventricular size, systolic function and wall thickness, with no regional wall motion abnormalities. Normal diastolic function. Left ventricular ejection fraction is estimated at 60 %. Right Ventricle Normal right ventricular size and systolic function. Mild pulmonary hypertension, RVSP 36.9 mmHg. Right Atrium The right atrium is normal in size. Left Atrium The left atrium is normal in size. Mitral Valve Structurally normal mitral valve without significant stenosis or prolapse. There is no mitral regurgitation. Aortic Valve Structurally normal trileaflet aortic valve. No aortic valve stenosis. Trace aortic valve regurgitation. Tricuspid Valve Structurally normal tricuspid valve. Trace tricuspid valve regurgitation. Pulmonic Valve Pulmonic valve not well visualized. Pericardium Normal pericardium without effusion. Aorta Normal ascending aorta dimension. CONCLUSIONS Normal left ventricular size, systolic function and wall thickness, with no regional wall motion abnormalities. Normal diastolic function. Left ventricular ejection fraction is estimated at 60 %. Normal right ventricular size and systolic function. Mild pulmonary hypertension, RVSP 36.9 mmHg. Structurally normal trileaflet aortic valve. No aortic valve stenosis. Trace aortic valve regurgitation. No change from 09/24/2013 Dr. Josse Justice MD (Electronically Signed) Final Date: 23 July 2019 16:47 S
[2019-08-07 13:35] LABS: Basophils % 0.3 %; Eosinophils % 1.3 %; Lymphocytes # 1.7 10^3/uL (0.8-4.8); Lymphocytes % 54.7 %; Mean Corpuscular HGB Conc 33.3 g/dL (30.0-36.0); Mean Corpuscular Hemoglobin 32.1 pg (28.0-34.0); Mean Corpuscular Volume 96.2 fL (81-99); Mean Platelet Volume 9.4 fL (7.4-10.4); Monocytes # 0.2 10^3/uL (0.2-0.9); Monocytes % 7.5 %; Neutrophils # 1.2 10^3/uL (1.8-7.7); Neutrophils % 36.2 %; Nucleated Red Blood Cells % 0 %; Platelet Count 133 10^3/cmm (130-400); Red Blood Count 3.43 10^6/uL (4.1-5.3); Red Cell Distribution Width 14.6 % (12.1-15.1); White Blood Count 3.2 10^3/uL (4.0-10.0)
[2019-08-07 13:46] LABS: Alanine Aminotransferase 11 U/L (0-33); Albumin Level 3.7 g/dL (3.5-5.2); Alkaline Phosphatase 101 IU/L (35-105); Anion Gap 10.1 (5-19); Aspartate Amino Transferase 19 U/L (0-32); Blood Urea Nitrogen 8 mg/dL (8-23); Calcium 9.5 mg/dL (8.5-10.5); Carbon Dioxide 32 mmol/L (22-29); Chloride 99 mmol/L (98-107); Globulin 4.9 g/dL (1.3-4.6); Glomerular Filtration Rate 71.1 mL/min (90-130); Glucose 94 mg/dL (65-115); Osmolality Calculated 280 mOsm/kg (285-295); Potassium 4.1 mmol/L (3.5-5.1); Sodium 137 mmol/L (136-145); Total Bilirubin 0.3 mg/dL (0.15-1.2); Total Protein 8.6 g/dL (6.6-8.7)
--- NOTE | 2019-08-10 11:21 | ONC FU_ITS ---
Dr. Sanchez Patient Follow-Up Note Patient: Karely Armenta Unit #: [id number]: 1950 Dicatated By: Sean Sanchez M.D.Date of Visit:Aug 07, 2019 Onc Med Follow-up/Prog Note Chief Complaint: Myeloma. History of Present Illness: This is a 69 year-old woman with IgG kappa myeloma. She was found to be moderately anemic in December 2016 when she was admitted to the hospital with pneumonia. She also reported having had an illness the preceding summer, in October or November, which may have been tick fever, but that was never confirmed. Her follow-up laboratory studies with Dr. Garcia on 05/03/2017 included CBC showing hemoglobin 11.9 g with white blood cell count 5100 and platelet count 155,000. Her sedimentation rate was significantly elevated at 94 mm/hour. The chem profile showed normal renal function with BUN 13 and creatinine 0.96 mg/dL. Calcium was normal at 9.0 mg/dL. The total protein was elevated at 9.0 g/dL with albumin 4.0 g/dL and calculated serum globulin elevated at 5.0 g/dL. Protein electrophoresis showed a monoclonal protein quantitating at 2.5 g/dL. Immunofixation showed an IgG kappa paraprotein measuring 2.87 g/dL. Hepatits screen was nonreactive to hepatitis C, hepatitis Bs antigen, and hepatitis B core total Ab referral. The hepatitis B surface antibody was < 3.10. LDH was normal at 149 U/L. The beta-2 microglobulin was slightly elevated at 0.420 mg/dL. I had seen her initially on 05/11/2017. Repeat protein electrophoresis with immunofixation prior to that visit, from 05/09/2017, showed IgG kappa monoclonal protein quantitating at 2.87 g/dL. The kappa light chain was elevated at 177.96 mg/L with lambda light chain 1.73 mg/L and kappa/lambda ratio elevated at 102. On her further evaluation there was no monoclonal protein detected in a 24-hour urine specimen. Skeletal survey on 05/11/2017 showed cervical and lumbar spondylosis and bilateral hip joint osteoarthritic changes. There was no radiographic evidence of multiple myeloma. She underwent bone marrow aspiration/biopsy on 05/17/2017. The cellularity was estimated at 70% with 32% plasma cells. Iron stores were noted to be absent. The FISH panel for myeloma showed gain of chromosome 1q, deletions of RB 1 and LAMP1, and gain of IG. The standard chromosome analysis was normal. Overall, the findings were consistent with plasma cell neoplasm/myeloma. Staging PET/CT on 06/03/2017 showed a single FDG avid osteolytic site in the T1 vertebral body which was felt to possibly represent multiple myeloma. She then had further evaluation with MRI of the spine on 07/12/2017. There were significant degenerative changes in the cervical spine which included moderate central canal stenosis at C4-C5, C5-C6, and C7 as well as bilateral nerve root encroachment at C5, C6, and C7. There were also degenerative changes in the lumbar spine with interval STIR signal abnormality and enhancement of T10-L5 spinous processes suggesting possible myelomatous changes. The thoracic spine showed subtle diffuse signal and enhancement abnormality involving the T1 vertebral body. In correlation with the PET/CT findings, this was felt to be suspicious for neoplastic process, including multiple myeloma. There were no actual lytic lesions identified. She had further laboratory evaluation on 07/26/2017. Her CBC at that point showed hemoglobin down slightly to 10.1 g with white blood cell count 3700 and platelet count 122,000. Chem profile showed borderline renal function with BUN 12 and creatinine 1.1 mg/dL and calculated GFR 49 mm/hour. Repeat protein electrophoresis showed M protein increased to 3.22 g/dL compared to 2.87 g/dL in April. Her quantitative immunoglobulin levels showed elevated IgG at 3800 mg/dL and IgA low at less than 8.00 and IgM low at 5.50 mg/dL. Her serum iron studies showed normal transferrin saturation at 30.9%, but ferritin was low at 14.4 ng/mL. B12 level was in low-normal range at 288 pg/mL. She is seen for a follow-up visit on 08/14/2017. At that point she did agree to begin treatment with Velcade/Revlimid/dexamethasone. She began her cycle 1 of Velcade/Revlimid/dexamethasone on 09/11/2017. At that time she also began prophylaxis with Bactrim and acyclovir. When she returned for her day 4 Velcade injection, she had developed a significant skin eruption, and she was advised to stop both the Revlimid and the Bactrim. At day 8 she had a reduction in the Velcade dosage to 1.0 mg/m???, as her neutrophil count had dropped to 800 and she also was experiencing some neuropathy. The Revlimid remained on hold. As of 10/17/2017 the ANC was still only 700, and I did opt to delay her 2nd cycle of treatment. Her repeat protein electrophoresis from 10/09/2017 did show a decline in her M protein to 2.71 g/dL compared to a pretreatment level of 3.73 g/dL. She eventually continued with cycle 2 on 10/23/2017 with the Velcade dosage reduced at 1.0 mg/m???. The Revlimid dosage was reduced to 10 mg. Despite the reductions, her cycle 3 was delayed again due to neutropenia. Her repeat protein electrophoresis on 11/20/2017 showed essentially stable M protein level at 2.77 g/dL. She continued with cycle 3 on 12/04/2017. Her neutrophil count at that point was back up to 1900. With that cycle she stopped Revlimid after 1 day and her day for Velcade was held due to multiple symptoms including sore throat, swelling in her throat, hoarseness, and cough. She did receive day 8 Velcade, but her day 11 treatment also was held. She eventually did continue with a 4th cycle of treatment on 12/26/2017 and with the 5th cycle on a 01/16/2018, but with both of those she showed up for only 3 of her scheduled Velcade injections. As of cycle 5 her M protein was still basically stable at 2.82 g/dL. Beginning with cycle 6 her treatment was changed to a 28 day cycle with Velcade administered on days 1, 8, and 15, with Revlimid administered on a day schedule, and with dexamethasone administered weekly. With that change her compliance improved. As of 03/05/2018 she began her 7th cycle of treatment. At that point her serum protein electrophoresis had shown a significant decline in the M protein, to 1.41 g/dL. With continued treatment there was further decline in the M protein. As of 05/08/2018 on day 8 of cycle 9 it had decreased to 0.84 g/dL. However, at day 1 of cycle 10 on 05/30/2018 it increased slightly to 1.11 g/dL. At cycle 10 day 22 on 06/19/2018 it had stabilized at 1.09 g/dL. Restaging PET/CT on 06/23/2018 showed the T1 lesion to be weakly FDG positive and unchanged from the previous study in May 2017. Given those findings, I did opt to put her further treatment on hold. Her repeat protein electrophoresis on 07/20/2018 showed an increase in the M protein to 1.4 g/dL. The free light chain assay showed elevated kappa light chain at 83.8 mg/L with lambda light chain 2.9 mg/L and elevated kappa/lambda ratio at 28.90. With those findings, she was advised to continue to second line treatment. She had indicated that she preferred not to be on any type of IV infusion. As such, I recommend a trial of therapy with Revlimid/ixazomib/dexamethasone. She began cycle 1 of Revlimid/ixazomib/dexamethasone on 08/29/2018. Due to her previous toxicities with Revlimid, it was initiated at a reduced dosage of 10 mg daily on a 21/28 day schedule with ixazomib dosed at 4 mg on days 18 and 15 and the dexamethasone dose at 40 mg weekly. She was able to tolerate it with acceptable toxicity, and she continued with cycle 2 on 09/26/2018 and with cycle 3 on 10/25/2018. Her repeat protein electrophoresis in September did show some decline in the M protein, to 1.0 g/dL. It then stabilized, and she continued her same treatment. As of 01/24/2019 the protein electrophoresis showed her quantitative M protein at 1.1 g/dL. The free light chain assay showed kappa light chain elevated at 105.1 mg/L, lambda light chain 7.0 mg/L, and elevated kappa/lambda ratio at 15.01. She continued treatment with Revlimid/ixazomib/dexamethasone. As of 04/22/2019 her protein electrophoresis showed M protein stable at 0.9 g/dL, but her free light chain assay continued to show elevated kappa/lambda ratio at 15.37. Her quantitative immunoglobulin levels showed IgG 1165 mg/dL with IgA low at 10 mg/dL and IgM low at 17 mg/dL. Her CBC showed stable hemoglobin at 12 g, but her ANC was low at 700. As of 05/06/2019 her treatment was put on hold due to persistent neutropenia. Her 24 urine protein electrophoresis showed no monoclonal protein. Her other medical illnesses include hypertension, hyperlipidemia, coronary artery disease, hypothyroidism, GERD, fibromyalgia, degenerative arthritis, and anxiety/depression. Her surgical/procedural history includes coronary angioplasty/stent placement 2015. She has arthroscopic left knee surgery, and she also has had surgery on the right shoulder. She has history of smoking for 25 years, from 1-3 packs of cigarettes daily. She quit smoking in 1989. She has had just occasional alcohol use. She is [employer], and she will not accept blood products. INTERIM HISTORY: In May 2019 she had taken a trip to [place], and while she was there she became very ill and required treatment for pneumonia. She returned here for a follow-up visit in June. Her repeat protein electrophoresis on 07/02/2019 showed increase in the M protein to 2.0 g/dL. Her free light chain assay showed increased kappa light chain to 142 mg/L with lambda light chain 2.9 mg/L, and elevated kappa/lambda ratio at 49.38. Restaging PET/CT on 07/13/2019 showed stable findings in the T1 lesion with FDG activity no greater than that of marrow background, consistent with successfully treated disease. There was no evidence of any new lesions. However, with the significant increase in the M protein and in the kappa free light chain, she was recommended to proceed with third line treatment with daratumumab in combination with carfilzomib and dexamethasone. She has undergone placement of Port-A-Cath venous access device in preparation for that treatment. Her baseline echocardiogram showed normal left ventricular function with ejection fraction estimated at 60%. She is seen for a followup visit. She complains that she has been feeling tired and sore. She is still doing light work. Her appetite is good. She has gained some weight. She has not had fever. She has some sweating at night. She complains that her glands are swollen. She has continued to have some phlegm since her pneumonia, but she hasn't been able to cough anything up. Her breathing has been OK, but she has had some tightness in her chest when she is lying down. She has nausea off and on, and she has been having acid reflux despite taking Protonix and Pepcid. She has some constipation. Bladder function has been okay. She has some generalized soreness in addition to having some pain still in her back and hips. She has some headaches, but not real bad. She gets dizzy if she gets up too fast. She sometimes has numbness in her hands. Medications: amLODIPine Besylate 1 Tablet (of 5 mg) Oral daily, Body/Hair/Skin/Nails 2 Capsule Oral daily, Euowphlhyb-HJOG-Wcfaoodz (50-325-40 mg) Tablet Oral four times a day, Cholecalciferol 2 (1000 Units) Capsule Oral daily, Curcumin 95 1 (500 mg) Capsule Oral daily PRN, Cymbalta 1 (60 mg) Capsule Delayed Release Particles Oral daily, Levothyroxine Sodium 1 (50 mcg) Tablet Oral daily, Lisinopril 1 (25 mg) Tablet Oral daily, LORazepam 0.5 - 1 (1 mg) Tablet Oral q 4 hours PRN, Multivitamin Adult 1 Tablet Oral daily, Nitroglycerin 1 (400 mcg/spray) Aerosol, solution Translingual PRN, OxyCODONE HCl 1 (30 mg) Tablet Oral 5x/d PRN, Pantoprazole Sodium 1 Tablet (of 40 mg) Tablet, enteric coated Oral daily, Plavix 1 (75 mg) Tablet Oral daily, Pravastatin Sodium 1 (40 mg) Tablet Oral daily, Prochlorperazine Maleate 1 (10 mg) Tablet Oral four times a day PRN, Soma 1 (350 mg) Tablet Oral four times a day PRN, Vitamin E 1 Capsule Oral daily Allergies: Codeine Sulfate, LevoFLOXacin, and Vicodin. Review of Systems: Constitutional - Her energy level is okay, she does feel tired and sore. Her appetite is good. She has gained weight. No fever or chills. She is having hot flashes and sweating episodes, mainly during the night. ECOG score is 1, ENMT - She has some sinus congestion/drainage. No mouth sores. She feels like her lymph nodes in her neck are swollen. No difficulty swallowing, Hematologic/Lymphatic - No abnormal bruising or bleeding, Respiratory - No shortness of breath, but she has had tightness in her upper chest when she is lying down. She has a cough. No pleuritic pain or hemoptysis, Cardiovascular - No angina pain. No palpitations, Gastrointestinal - She has occasional nausea. No vomiting. She has increase in heartburn even with taking her Pepcid and Protonix. No diarrhea or constipation. No blood in the stool or black stools, Genitourinary (F) - No dysuria or hematuria. No urinary frequency. No urgency or incontinence, Musculoskeletal - She has generalized soreness, and she has pain in the back and hips, Integumentary - No skin complications, Neurologic - She has been having occasional frontal headaches. She has had some dizziness with positional changes. She has some numbness in her hands, Psychiatric - No anxiety or depression. No insomnia. Vital Signs: Performed on Aug 07, 2019 14:29 Height - 66.00 in Weight - 167.8 lbs (HIGH) BSA - 1.86 sq.m BMI - 27.08 Temperature - 97.9 F (LOW) Pulse - 95 /min Respiration - 18 /min BP - 138/62 mm(hg) O2 Sat - 95 % (LOW) Pain - 0 Physical Examination: Constitutional - She looks pretty good generally, Eyes - Sclerae nonicteric. Conjunctivae clear, ENMT - No lesions noted in the oral cavity, Hematologic/Lymphatic - There are slightly prominent submandibular glands vs small submandibular nodes bilaterally. There is no other cervical, clavicular, or axillary adenopathy noted, Respiratory - Lungs sound clear, Cardiovascular - Heart rhythm is regular. There is no murmur, gallop, or rub noted, Chest - There is significant ecchymosis in the area of the portacath insertion site in the upper left chest wall, Abdomen - Soft. Liver and spleen are not enlarged. There is no abdominal mass or ascites noted and there is no inguinal adenopathy, Extremities - No edema. Posterior tibial pulses are palpable bilaterally, Neurologic - No focal neurologic deficits noted. Lab/Imaging: Test performed on Aug 07, 2019 13:00 Sodium 137 mmol/L Potassium 4.1 mmol/L Chloride 99 mmol/L CO2 32 mmol/L Anion Gap 10.1 BUN 8 mg/dL Creatinine 0.8 mg/dL Cr Clearance (Est) 79.75 mL/min eGFR 71.1 mL/min Glucose 94 mg/dL Calcium 9.5 mg/dL Protein, Total 8.6 g/dL Albumin 3.7 g/dL Globulin 4.9 g/dL Bilirubin, Total 0.3 mg/dL ALT (SGPT) 11 U/L AST (SGOT) 19 U/L Alkaline Phosphatase 101 IU/L WBC 3.2 10 3/uL RBC 3.43 10 6/uL HGB 11.0 g/dL HCT 33.0 % MCV 96.2 fL MCH 32.1 pg MCHC 33.3 g/dL RDW 14.6 % Platelet Count 133 10 3/cmm MPV 9.4 fL Neutrophils 1.2 10 3/uL Lymphocytes 1.7 10 3/uL Monocytes 0.2 10 3/uL Eosinophils 0.0 10 3/uL Basophils 0.0 10 3/uL Neutrophil % 36.2 % Lymphocyte % 54.7 % Monocyte % 7.5 % Eosinophil % 1.3 % Basophils % 0.3 % Impression: 1. Patient with IgG kappa myeloma. Bone marrow aspiration/biopsy on 05/17/2017 showed 32% plasma cells, consistent with myeloma. The FISH panel showed gain of chromosome 1q, deletions of RB 1 and LAMP1, and gain of IG. Her baseline M protein was 2.87 g/dL. She was mildly anemic and she had significantly elevated sedimentation rate. She had normal renal function and negative 24-hour urine protein electrophoresis. Skeletal survey showed no lytic bone involvement. PET/CT and MRI both showed findings suspicious for involvement of the T1 vertebral body. She does not appear to be overtly symptomatic with it. 2. Her bone marrow also showed absent storage iron. Her other medical illnesses include: 3. Hypertension. 4. Hyperlipidemia. 5. Coronary artery disease with angioplasty/stent placement in February 2016. 6. Hypothyroidism. 7. GERD. 8. Degenerative arthritis/degenerative disease of the spine. 9. Fibromyalgia. 10. Anxiety/depression. She has been undergoing treatment with Velcade/Revlimid/dexamethasone, cycle 1 beginning on 09/11/2017. Overall, her treatment was very suboptimal due in part to multiple side effects which included skin eruption and neutropenia, among others. Compliance also had been somewhat of an issue. Beginning with her 6th cycle of treatment, on 02/05/2018, her treatment was changed to a 28 day schedule with Velcade administered at a reduced dosage on days 1, 8, and 15, with Revlimid administered at 10 mg daily on a 21/28 day schedule, and with dexamethasone administered weekly. She began cycle 7 on 03/05/2018. Her serum protein electrophoresis at that point did show a significant decrease in the M protein, to 1.41 g/dL. She then continued treatment at the same dosages, but intermittently she still had moderately severe neutropenia. She had otherwise been tolerating the treatment well. She began her 10th cycle of treatment on 05/30/2018. At that point her M protein had stabilized at just over 1 g/dL. She appeared stable clinically, and restaging PET/CT showed only mild FDG activity in the T1 lesion. There were no other areas of FDG uptake, and there was no significant change compared to the prior study in May 2017. As on 07/20/2018 her repeat protein electrophoresis showed a significant increase in the M protein to 1.4 g/dL, and her free light chain assay showed an increase in the kappa/lambda ratio to28.90. With those findings, she was advised to proceed with second line treatment. She indicated that she preferred not to have any IV medication. As such, on 08/29/2018 she began a trial of therapy with Revlimid/ixazomib/dexamethasone. Due to her previous toxicities, the Revlimid was initiated at a reduced dosage of 10 mg daily on a 21/28 day schedule. As of October 2018, following 3 cycles of treatment, her M protein had stabilized at 1.0 g/dL. She continued her same treatment, and as of 01/24/2019 her M protein and her free light chain had remained stable. Her clinical status at that time also appeared stable, and she continued treatment with Revlimid, ixazomib, and dexamethasone at the same dosages. As of 04/22/2019 her protein electrophoresis showed M protein stable at 0.9 g/dL, but her free light chain assay continued to show elevated kappa/lambda ratio at 15.37. Her quantitative immunoglobulin levels showed IgG 1165 mg/dL with IgA low at 10 mg/dL and IgM low at 17 mg/dL. Her CBC showed stable hemoglobin at 12 g, but her ANC was low at 700. As of 05/06/2019 her treatment was put on hold due to persistent neutropenia. Her 24 hour urine protein electrophoresis showed no monoclonal protein. As of her follow-up visit in June 2019 there was evidence of disease progression with significant increase in her M protein and and her kappa free light chain. Her restaging PET/CT showed stable findings at the T1 vertebral body lesion and no evidence of any new lesions. Plan: She will return next week to begin 3rd ine treatment with daratumab/carfilzomib/dexamethasone. I reviewed anticipated side effects, including the potential for infusion reaction with the daratumumab. She will need prophylaxis with acyclovir. Signed By: Sean Sanchez M.D. <<Signature on File>>
[2019-08-12] MEDS: acetaminophen 325 mg Tablet 650 MG PO (09:30)
[2019-08-12] MEDS: sodium chloride 0.9% 500 ML 999 ML IV (09:35)
[2019-08-13] MEDS: acetaminophen 325 mg Tablet 650 MG PO (09:20)
[2019-08-13] MEDS: palonosetron 0.25 mg/5 mL SDV IV (09:23)
[2019-08-13] MEDS: sodium chloride 0.9% 250 ML 999 ML IV (09:23)
[2019-08-19 09:02] LABS: Basophils % 0.3 %; Eosinophils # 0.1 10^3/uL (0.0-0.8); Eosinophils % 2.8 %; Hematocrit 35.5 % (37.0-47.0); Hemoglobin 11.7 g/dL (11.5-15.3); Lymphocytes # 1.6 10^3/uL (0.8-4.8); Mean Corpuscular Hemoglobin 32.1 pg (28.0-34.0); Mean Corpuscular Volume 97.5 fL (81-99); Monocytes # 0.3 10^3/uL (0.2-0.9); Monocytes % 8.7 %; Neutrophils # 1.6 10^3/uL (1.8-7.7); Neutrophils % 43.2 %; Nucleated Red Blood Cells % 0 %; Platelet Count 143 10^3/cmm (130-400); Red Blood Count 3.64 10^6/uL (4.1-5.3); Red Cell Distribution Width 14.8 % (12.1-15.1); White Blood Count 3.6 10^3/uL (4.0-10.0)
[2019-08-19 09:23] LABS: Alanine Aminotransferase 18 U/L (0-33); Alkaline Phosphatase 99 IU/L (35-105); Anion Gap 16.5 (5-19); Aspartate Amino Transferase 18 U/L (0-32); Blood Urea Nitrogen 9 mg/dL (8-23); Calcium 9.4 mg/dL (8.5-10.5); Carbon Dioxide 27 mmol/L (22-29); Chloride 99 mmol/L (98-107); Globulin 4.2 g/dL (1.3-4.6); Glomerular Filtration Rate 71.1 mL/min (90-130); Glucose 105 mg/dL (65-115); Osmolality Calculated 282 mOsm/kg (285-295); Potassium 4.5 mmol/L (3.5-5.1); Sodium 138 mmol/L (136-145); Total Bilirubin 0.2 mg/dL (0.15-1.2); Total Protein 8.2 g/dL (6.6-8.7)
[2019-08-19] MEDS: acetaminophen 325 mg Tablet 650 MG PO (09:27)
[2019-08-19] MEDS: sodium chloride 0.9% 500 ML 999 ML IV (10:17)
[2019-08-20] MEDS: sodium chloride 0.9% 250 ML 999 ML IV (10:57)
[2019-08-20] MEDS: acetaminophen 325 mg Tablet 650 MG PO (11:10)
[2019-08-20] MEDS: palonosetron 0.25 mg/5 mL SDV IV (11:34)
--- NOTE | 2019-08-22 19:18 | ONC FU_ITS ---
Dr. Sanchez Patient Follow-Up Note Patient: Karely Armenta Unit #: [id number]: [id number] Dicatated By: Sean Sanchez M.D.Date of Visit:Aug 19, 2019 Onc Med Follow-up/Prog Note Chief Complaint: Myeloma. History of Present Illness: This is a 69 year-old woman with IgG kappa myeloma. She was found to be moderately anemic in December 2016 when she was admitted to the hospital with pneumonia. She also reported having had an illness the preceding summer, in October or November, which may have been tick fever, but that was never confirmed. Her follow-up laboratory studies with Dr. Garcia on 05/03/2017 included CBC showing hemoglobin 11.9 g with white blood cell count 5100 and platelet count 155,000. Her sedimentation rate was significantly elevated at 94 mm/hour. The chem profile showed normal renal function with BUN 13 and creatinine 0.96 mg/dL. Calcium was normal at 9.0 mg/dL. The total protein was elevated at 9.0 g/dL with albumin 4.0 g/dL and calculated serum globulin elevated at 5.0 g/dL. Protein electrophoresis showed a monoclonal protein quantitating at 2.5 g/dL. Immunofixation showed an IgG kappa paraprotein measuring 2.87 g/dL. Hepatits screen was nonreactive to hepatitis C, hepatitis Bs antigen, and hepatitis B core total Ab referral. The hepatitis B surface antibody was < 3.10. LDH was normal at 149 U/L. The beta-2 microglobulin was slightly elevated at 0.420 mg/dL. I had seen her initially on 05/11/2017. Repeat protein electrophoresis with immunofixation prior to that visit, from 05/09/2017, showed IgG kappa monoclonal protein quantitating at 2.87 g/dL. The kappa light chain was elevated at 177.96 mg/L with lambda light chain 1.73 mg/L and kappa/lambda ratio elevated at 102. On her further evaluation there was no monoclonal protein detected in a 24-hour urine specimen. Skeletal survey on 05/11/2017 showed cervical and lumbar spondylosis and bilateral hip joint osteoarthritic changes. There was no radiographic evidence of multiple myeloma. She underwent bone marrow aspiration/biopsy on 05/17/2017. The cellularity was estimated at 70% with 32% plasma cells. Iron stores were noted to be absent. The FISH panel for myeloma showed gain of chromosome 1q, deletions of RB 1 and LAMP1, and gain of IG. The standard chromosome analysis was normal. Overall, the findings were consistent with plasma cell neoplasm/myeloma. Staging PET/CT on 06/03/2017 showed a single FDG avid osteolytic site in the T1 vertebral body which was felt to possibly represent multiple myeloma. She then had further evaluation with MRI of the spine on 07/12/2017. There were significant degenerative changes in the cervical spine which included moderate central canal stenosis at C4-C5, C5-C6, and C7 as well as bilateral nerve root encroachment at C5, C6, and C7. There were also degenerative changes in the lumbar spine with interval STIR signal abnormality and enhancement of T10-L5 spinous processes suggesting possible myelomatous changes. The thoracic spine showed subtle diffuse signal and enhancement abnormality involving the T1 vertebral body. In correlation with the PET/CT findings, this was felt to be suspicious for neoplastic process, including multiple myeloma. There were no actual lytic lesions identified. She had further laboratory evaluation on 07/26/2017. Her CBC at that point showed hemoglobin down slightly to 10.1 g with white blood cell count 3700 and platelet count 122,000. Chem profile showed borderline renal function with BUN 12 and creatinine 1.1 mg/dL and calculated GFR 49 mm/hour. Repeat protein electrophoresis showed M protein increased to 3.22 g/dL compared to 2.87 g/dL in April. Her quantitative immunoglobulin levels showed elevated IgG at 3800 mg/dL and IgA low at less than 8.00 and IgM low at 5.50 mg/dL. Her serum iron studies showed normal transferrin saturation at 30.9%, but ferritin was low at 14.4 ng/mL. B12 level was in low-normal range at 288 pg/mL. She is seen for a follow-up visit on 08/14/2017. At that point she did agree to begin treatment with Velcade/Revlimid/dexamethasone. She began her cycle 1 of Velcade/Revlimid/dexamethasone on 09/11/2017. At that time she also began prophylaxis with Bactrim and acyclovir. When she returned for her day 4 Velcade injection, she had developed a significant skin eruption, and she was advised to stop both the Revlimid and the Bactrim. At day 8 she had a reduction in the Velcade dosage to 1.0 mg/m???, as her neutrophil count had dropped to 800 and she also was experiencing some neuropathy. The Revlimid remained on hold. As of 10/17/2017 the ANC was still only 700, and I did opt to delay her 2nd cycle of treatment. Her repeat protein electrophoresis from 10/09/2017 did show a decline in her M protein to 2.71 g/dL compared to a pretreatment level of 3.73 g/dL. She eventually continued with cycle 2 on 10/23/2017 with the Velcade dosage reduced at 1.0 mg/m???. The Revlimid dosage was reduced to 10 mg. Despite the reductions, her cycle 3 was delayed again due to neutropenia. Her repeat protein electrophoresis on 11/20/2017 showed essentially stable M protein level at 2.77 g/dL. She continued with cycle 3 on 12/04/2017. Her neutrophil count at that point was back up to 1900. With that cycle she stopped Revlimid after 1 day and her day for Velcade was held due to multiple symptoms including sore throat, swelling in her throat, hoarseness, and cough. She did receive day 8 Velcade, but her day 11 treatment also was held. She eventually did continue with a 4th cycle of treatment on 12/26/2017 and with the 5th cycle on a 01/16/2018, but with both of those she showed up for only 3 of her scheduled Velcade injections. As of cycle 5 her M protein was still basically stable at 2.82 g/dL. Beginning with cycle 6 her treatment was changed to a 28 day cycle with Velcade administered on days 1, 8, and 15, with Revlimid administered on a day schedule, and with dexamethasone administered weekly. With that change her compliance improved. As of 03/05/2018 she began her 7th cycle of treatment. At that point her serum protein electrophoresis had shown a significant decline in the M protein, to 1.41 g/dL. With continued treatment there was further decline in the M protein. As of 05/08/2018 on day 8 of cycle 9 it had decreased to 0.84 g/dL. However, at day 1 of cycle 10 on 05/30/2018 it increased slightly to 1.11 g/dL. At cycle 10 day 22 on 06/19/2018 it had stabilized at 1.09 g/dL. Restaging PET/CT on 06/23/2018 showed the T1 lesion to be weakly FDG positive and unchanged from the previous study in May 2017. Given those findings, I did opt to put her further treatment on hold. Her repeat protein electrophoresis on 07/20/2018 showed an increase in the M protein to 1.4 g/dL. The free light chain assay showed elevated kappa light chain at 83.8 mg/L with lambda light chain 2.9 mg/L and elevated kappa/lambda ratio at 28.90. With those findings, she was advised to continue to second line treatment. She had indicated that she preferred not to be on any type of IV infusion. As such, I recommend a trial of therapy with Revlimid/ixazomib/dexamethasone. She began cycle 1 of Revlimid/ixazomib/dexamethasone on 08/29/2018. Due to her previous toxicities with Revlimid, it was initiated at a reduced dosage of 10 mg daily on a 21/28 day schedule with ixazomib dosed at 4 mg on days 18 and 15 and the dexamethasone dose at 40 mg weekly. She was able to tolerate it with acceptable toxicity, and she continued with cycle 2 on 09/26/2018 and with cycle 3 on 10/25/2018. Her repeat protein electrophoresis in September did show some decline in the M protein, to 1.0 g/dL. It then stabilized, and she continued her same treatment. As of 01/24/2019 the protein electrophoresis showed her quantitative M protein at 1.1 g/dL. The free light chain assay showed kappa light chain elevated at 105.1 mg/L, lambda light chain 7.0 mg/L, and elevated kappa/lambda ratio at 15.01. She continued treatment with Revlimid/ixazomib/dexamethasone. As of 04/22/2019 her protein electrophoresis showed M protein stable at 0.9 g/dL, but her free light chain assay continued to show elevated kappa/lambda ratio at 15.37. Her quantitative immunoglobulin levels showed IgG 1165 mg/dL with IgA low at 10 mg/dL and IgM low at 17 mg/dL. Her CBC showed stable hemoglobin at 12 g, but her ANC was low at 700. As of 05/06/2019 her treatment was put on hold due to persistent neutropenia. Her 24 urine protein electrophoresis showed no monoclonal protein. Her other medical illnesses include hypertension, hyperlipidemia, coronary artery disease, hypothyroidism, GERD, fibromyalgia, degenerative arthritis, and anxiety/depression. Her surgical/procedural history includes coronary angioplasty/stent placement 2015. She has arthroscopic left knee surgery, and she also has had surgery on the right shoulder. She has history of smoking for 25 years, from 1-3 packs of cigarettes daily. She quit smoking in 1989. She has had just occasional alcohol use. She is Judaism, and she will not accept blood products. INTERIM HISTORY: In May 2019 she had taken a trip to [place], and while she was there she became very ill and required treatment for pneumonia. She returned here for a follow-up visit in June. Her repeat protein electrophoresis on 07/02/2019 showed increase in the M protein to 2.0 g/dL. Her free light chain assay showed increased kappa light chain to 142 mg/L with lambda light chain 2.9 mg/L, and elevated kappa/lambda ratio at 49.38. Restaging PET/CT on 07/13/2019 showed stable findings in the T1 lesion with FDG activity no greater than that of marrow background, consistent with successfully treated disease. There was no evidence of any new lesions. However, with the significant increase in the M protein and in the kappa free light chain, she was recommended to proceed with third line treatment with daratumumab in combination with carfilzomib and dexamethasone. She underwent placement of Port-A-Cath venous access device in preparation for that treatment. Her baseline echocardiogram showed normal left ventricular function with ejection fraction estimated at 60%. She has not returned to begin cycle 1 of daratumumab/carfilzomib/dexamethasone on 08/12/2019. The initial infusion of daratumumab was administered in divided doses over 2 days. She is seen for a followup visit. Thus far she has tolerated her treatment with no adverse effects. She has noted improvement in her energy and activity tolerance. Her ECOG score is 0. She has good appetite. She has not had fever. She has not having a lot of sweating, though. She has some allergy related sinus symptoms. She has a little bit of cough which she attributes to phlegm in her throat. She reports having some heaviness in her chest when she is lying down. She otherwise is not having shortness of breath or chest pain. She does not complain of nausea. She has a little bit of heartburn. It is managed adequately with Pepcid. She has no complaints with bowel or bladder function. She has her normal pain in her back, right groin area, and hips. She has had a tiny little headache that comes and goes. She does have some dizziness/lightheadedness. She also has numbness/tingling that comes and goes. Medications: amLODIPine Besylate 1 Tablet (of 5 mg) Oral daily, Body/Hair/Skin/Nails 2 Capsule Oral daily, [id number] (50-325-40 mg) Tablet Oral four times a day, Cholecalciferol 2 (1000 Units) Capsule Oral daily, Curcumin 95 1 (500 mg) Capsule Oral daily PRN, Cymbalta 1 (60 mg) Capsule Delayed Release Particles Oral daily, Levothyroxine Sodium 1 (50 mcg) Tablet Oral daily, Lisinopril 1 (25 mg) Tablet Oral daily, LORazepam 0.5 - 1 (1 mg) Tablet Oral q 4 hours PRN, Multivitamin Adult 1 Tablet Oral daily, Nitroglycerin 1 (400 mcg/spray) Aerosol, solution Translingual PRN, OxyCODONE HCl 1 (30 mg) Tablet Oral 5x/d PRN, Pantoprazole Sodium 1 Tablet (of 40 mg) Tablet, enteric coated Oral daily, Plavix 1 (75 mg) Tablet Oral daily, Pravastatin Sodium 1 (40 mg) Tablet Oral daily, Prochlorperazine Maleate 1 (10 mg) Tablet Oral four times a day PRN, Soma 1 (350 mg) Tablet Oral four times a day PRN, Vitamin E 1 Capsule Oral daily Allergies: Codeine Sulfate, LevoFLOXacin, and Vicodin. Review of Systems: Constitutional - Her energy level is good. Her appetite is good and weight is down a few pounds. No fever or chills. She is having hot flashes and sweating during the day and at night. ECOG score is 0, ENMT - She has chronic allergies, adequately controlled with taking Benadryl daily. No mouth sores. No sore throat or difficulty swallowing, Hematologic/Lymphatic - She bruises easily, Respiratory - No shortness of breath. No cough. No pleuritic pain or hemoptysis. She has a heaviness present in her chest when lying down but she denies any shortness of breath, Cardiovascular - No angina pain. No palpitations, Gastrointestinal - No nausea or vomiting. Her acid reflux is well controlled with Pepcid. No diarrhea or constipation. No blood in the stool or black stools, Genitourinary (F) - No dysuria or hematuria. No urinary frequency. No urgency or incontinence, Musculoskeletal - She has chronic unchanged pain in her back and hips, Integumentary - No skin complications, Neurologic - She has a mild headache. No dizziness. No numbness/paresthesias or other focal neurologic symptoms, Psychiatric - No anxiety or depression. No insomnia. Vital Signs: Performed on Aug 19, 2019 08:52 Height - 66.00 in Weight - 164.0 lbs (LOW) BSA - 1.84 sq.m BMI - 26.47 Temperature - 97.6 F (LOW) Pulse - 93 /min Respiration - 18 /min BP - 146/84 mm(hg) (HIGH) O2 Sat - 95 % (LOW) Pain - 5 Physical Examination: Constitutional - She looks pretty good generally, Eyes - Sclerae nonicteric. Conjunctivae clear, ENMT - No lesions noted in the oral cavity, Hematologic/Lymphatic - No cervical, clavicular, or axillary adenopathy, Respiratory - Lungs sound clear, Cardiovascular - Heart rhythm is regular. There is no murmur, gallop, or rub noted, Abdomen - Soft. Liver and spleen are not enlarged. There is no abdominal mass or ascites noted and there is no inguinal adenopathy, Extremities - No edema. There are scattered ecchymoses, Neurologic - No focal neurologic deficits noted. Lab/Imaging: Test performed on Aug 19, 2019 08:40 Sodium 138 mmol/L Potassium 4.5 mmol/L Chloride 99 mmol/L CO2 27 mmol/L Anion Gap 16.5 BUN 9 mg/dL Creatinine 0.8 mg/dL Cr Clearance (Est) 79.7500 mL/min eGFR 71.1 mL/min Glucose 105 mg/dL Calcium 9.4 mg/dL Protein, Total 8.2 g/dL Albumin 4.0 g/dL Globulin 4.2 g/dL Bilirubin, Total 0.2 mg/dL ALT (SGPT) 18 U/L AST (SGOT) 18 U/L Alkaline Phosphatase 99 IU/L WBC 3.6 10 3/uL RBC 3.64 10 6/uL HGB 11.7 g/dL HCT 35.5 % MCV 97.5 fL MCH 32.1 pg MCHC 33.0 g/dL RDW 14.8 % Platelet Count 143 10 3/cmm MPV 10.0 fL Neutrophils 1.6 10 3/uL Lymphocytes 1.6 10 3/uL Monocytes 0.3 10 3/uL Eosinophils 0.1 10 3/uL Basophils 0.0 10 3/uL Neutrophil % 43.2 % Lymphocyte % 45.0 % Monocyte % 8.7 % Eosinophil % 2.8 % Basophils % 0.3 % Impression: 1. Patient with IgG kappa myeloma. Bone marrow aspiration/biopsy on 05/17/2017 showed 32% plasma cells, consistent with myeloma. The FISH panel showed gain of chromosome 1q, deletions of RB 1 and LAMP1, and gain of IG. Her baseline M protein was 2.87 g/dL. She was mildly anemic and she had significantly elevated sedimentation rate. She had normal renal function and negative 24-hour urine protein electrophoresis. Skeletal survey showed no lytic bone involvement. PET/CT and MRI both showed findings suspicious for involvement of the T1 vertebral body. She does not appear to be overtly symptomatic with it. 2. Her bone marrow also showed absent storage iron. Her other medical illnesses include: 3. Hypertension. 4. Hyperlipidemia. 5. Coronary artery disease with angioplasty/stent placement in February 2016. 6. Hypothyroidism. 7. GERD. 8. Degenerative arthritis/degenerative disease of the spine. 9. Fibromyalgia. 10. Anxiety/depression. She has been undergoing treatment with Velcade/Revlimid/dexamethasone, cycle 1 beginning on 09/11/2017. Overall, her treatment was very suboptimal due in part to multiple side effects which included skin eruption and neutropenia, among others. Compliance also had been somewhat of an issue. Beginning with her 6th cycle of treatment, on 02/05/2018, her treatment was changed to a 28 day schedule with Velcade administered at a reduced dosage on days 1, 8, and 15, with Revlimid administered at 10 mg daily on a 21/28 day schedule, and with dexamethasone administered weekly. She began cycle 7 on 03/05/2018. Her serum protein electrophoresis at that point did show a significant decrease in the M protein, to 1.41 g/dL. She then continued treatment at the same dosages, but intermittently she still had moderately severe neutropenia. She had otherwise been tolerating the treatment well. She began her 10th cycle of treatment on 05/30/2018. At that point her M protein had stabilized at just over 1 g/dL. She appeared stable clinically, and restaging PET/CT showed only mild FDG activity in the T1 lesion. There were no other areas of FDG uptake, and there was no significant change compared to the prior study in May 2017. As on 07/20/2018 her repeat protein electrophoresis showed a significant increase in the M protein to 1.4 g/dL, and her free light chain assay showed an increase in the kappa/lambda ratio to28.90. With those findings, she was advised to proceed with second line treatment. She indicated that she preferred not to have any IV medication. As such, on 08/29/2018 she began a trial of therapy with Revlimid/ixazomib/dexamethasone. Due to her previous toxicities, the Revlimid was initiated at a reduced dosage of 10 mg daily on a 21/28 day schedule. As of October 2018, following 3 cycles of treatment, her M protein had stabilized at 1.0 g/dL. She continued her same treatment, and as of 01/24/2019 her M protein and her free light chain had remained stable. Her clinical status at that time also appeared stable, and she continued treatment with Revlimid, ixazomib, and dexamethasone at the same dosages. As of 04/22/2019 her protein electrophoresis showed M protein stable at 0.9 g/dL, but her free light chain assay continued to show elevated kappa/lambda ratio at 15.37. Her quantitative immunoglobulin levels showed IgG 1165 mg/dL with IgA low at 10 mg/dL and IgM low at 17 mg/dL. Her CBC showed stable hemoglobin at 12 g, but her ANC was low at 700. As of 05/06/2019 her treatment was put on hold due to persistent neutropenia. Her 24 hour urine protein electrophoresis showed no monoclonal protein. As of her follow-up visit in June 2019 there was evidence of disease progression with significant increase in her M protein and and her kappa free light chain. Her restaging PET/CT showed stable findings at the T1 vertebral body lesion and no evidence of any new lesions. With those findings, she began third line treatment with daratumumab/carfilzomib/dexamethasone on 08/12/2019. Thus far she has tolerated the treatment with no adverse effects. Plan: She will proceed with cycle 1 day 8 daratumab/carfilzomib/dexamethasone. She returns in 1 week. Signed By: Sean Sanchez M.D. <<Signature on File>>
== END 2019-08-20 23:59 | disposition home or self-care (01) ==
LOC: ONCMED 06:42
PROVIDERS: Family Provider Internal Medicine; PCP Internal Medicine; Visit Provider Internal Medicine Medical Oncology
DX: Z51.12 Encounter for antineoplastic immunotherapy (principal); C90.00 Multiple myeloma not having achieved remission; I10 Essential (primary) hypertension; E78.5 Hyperlipidemia, unspecified; I25.10 Atherosclerotic heart disease of native coronary artery without angina pectoris; E03.9 Hypothyroidism, unspecified; K21.9 Gastro-esophageal reflux disease without esophagitis; M79.7 Fibromyalgia; M19.90 Unspecified osteoarthritis, unspecified site; F41.8 Other specified anxiety disorders; Z79.891 Long term (current) use of opiate analgesic; Z95.5 Presence of coronary angioplasty implant and graft; Z87.891 Personal history of nicotine dependence; Z92.21 Personal history of antineoplastic chemotherapy; Z87.01 Personal history of pneumonia (recurrent)
CPT/HCPCS: 36415; 36591; 80053; 85025; 93306; 96367; 96368; 96375; 96413; 96415; 96417; 99214; J1200; J2001; J2250; J2405; J2469; J2704; J3010; J3490; J7040; J7050; J9047; J9145

== ENCOUNTER 2019-08-26 07:56 | Outpatient (CLI) | payer MEDICARE, SELFPAY ==
[2019-08-26 08:54] LABS: Hemoglobin 10.5 g/dL (11.5-15.3); Lymphocytes # 0.5 10^3/uL (0.8-4.8); Lymphocytes % 25.9 %; Mean Corpuscular HGB Conc 33.9 g/dL (30.0-36.0); Mean Corpuscular Hemoglobin 32.8 pg (28.0-34.0); Mean Corpuscular Volume 96.9 fL (81-99); Mean Platelet Volume 11.3 fL (7.4-10.4); Monocytes # 0.4 10^3/uL (0.2-0.9); Monocytes % 20.4 %; Neutrophils % 51.7 %; Nucleated Red Blood Cells % 0 %; Platelet Count 76 10^3/cmm (130-400); Red Cell Distribution Width 14.2 % (12.1-15.1)
[2019-08-26 09:32] LABS: Alanine Aminotransferase 14 U/L (0-33); Albumin Level 3.9 g/dL (3.5-5.2); Alkaline Phosphatase 86 IU/L (35-105); Anion Gap 16.3 (5-19); Aspartate Amino Transferase 17 U/L (0-32); Blood Urea Nitrogen 7 mg/dL (8-23); Calcium 9.3 mg/dL (8.5-10.5); Carbon Dioxide 25 mmol/L (22-29); Chloride 100 mmol/L (98-107); Glomerular Filtration Rate 71.1 mL/min (90-130); Glucose 104 mg/dL (65-115); Osmolality Calculated 280 mOsm/kg (285-295); Potassium 4.3 mmol/L (3.5-5.1); Sodium 137 mmol/L (136-145); Total Bilirubin 0.3 mg/dL (0.15-1.2); Total Protein 7.9 g/dL (6.6-8.7)
--- NOTE | 2019-08-26 16:41 | ONC FU_ITS ---
Dr. Sanchez Patient Follow-Up Note Patient: Karely Armenta Unit #: [id number]: [id number] Dicatated By: Sean Sanchez M.D.Date of Visit:Aug 26, 2019 Onc Med Follow-up/Prog Note Chief Complaint: Myeloma. History of Present Illness: This is a 69 year-old woman with IgG kappa myeloma. She was found to be moderately anemic in December 2016 when she was admitted to the hospital with pneumonia. She also reported having had an illness the preceding summer, in October or November, which may have been tick fever, but that was never confirmed. Her follow-up laboratory studies with Dr. Garcia on 05/03/2017 included CBC showing hemoglobin 11.9 g with white blood cell count 5100 and platelet count 155,000. Her sedimentation rate was significantly elevated at 94 mm/hour. The chem profile showed normal renal function with BUN 13 and creatinine 0.96 mg/dL. Calcium was normal at 9.0 mg/dL. The total protein was elevated at 9.0 g/dL with albumin 4.0 g/dL and calculated serum globulin elevated at 5.0 g/dL. Protein electrophoresis showed a monoclonal protein quantitating at 2.5 g/dL. Immunofixation showed an IgG kappa paraprotein measuring 2.87 g/dL. Hepatits screen was nonreactive to hepatitis C, hepatitis Bs antigen, and hepatitis B core total Ab referral. The hepatitis B surface antibody was < 3.10. LDH was normal at 149 U/L. The beta-2 microglobulin was slightly elevated at 0.420 mg/dL. I had seen her initially on 05/11/2017. Repeat protein electrophoresis with immunofixation prior to that visit, from 05/09/2017, showed IgG kappa monoclonal protein quantitating at 2.87 g/dL. The kappa light chain was elevated at 177.96 mg/L with lambda light chain 1.73 mg/L and kappa/lambda ratio elevated at 102. On her further evaluation there was no monoclonal protein detected in a 24-hour urine specimen. Skeletal survey on 05/11/2017 showed cervical and lumbar spondylosis and bilateral hip joint osteoarthritic changes. There was no radiographic evidence of multiple myeloma. She underwent bone marrow aspiration/biopsy on 05/17/2017. The cellularity was estimated at 70% with 32% plasma cells. Iron stores were noted to be absent. The FISH panel for myeloma showed gain of chromosome 1q, deletions of RB 1 and LAMP1, and gain of IG. The standard chromosome analysis was normal. Overall, the findings were consistent with plasma cell neoplasm/myeloma. Staging PET/CT on 06/03/2017 showed a single FDG avid osteolytic site in the T1 vertebral body which was felt to possibly represent multiple myeloma. She then had further evaluation with MRI of the spine on 07/12/2017. There were significant degenerative changes in the cervical spine which included moderate central canal stenosis at C4-C5, C5-C6, and C7 as well as bilateral nerve root encroachment at C5, C6, and C7. There were also degenerative changes in the lumbar spine with interval STIR signal abnormality and enhancement of T10-L5 spinous processes suggesting possible myelomatous changes. The thoracic spine showed subtle diffuse signal and enhancement abnormality involving the T1 vertebral body. In correlation with the PET/CT findings, this was felt to be suspicious for neoplastic process, including multiple myeloma. There were no actual lytic lesions identified. She had further laboratory evaluation on 07/26/2017. Her CBC at that point showed hemoglobin down slightly to 10.1 g with white blood cell count 3700 and platelet count 122,000. Chem profile showed borderline renal function with BUN 12 and creatinine 1.1 mg/dL and calculated GFR 49 mm/hour. Repeat protein electrophoresis showed M protein increased to 3.22 g/dL compared to 2.87 g/dL in April. Her quantitative immunoglobulin levels showed elevated IgG at 3800 mg/dL and IgA low at less than 8.00 and IgM low at 5.50 mg/dL. Her serum iron studies showed normal transferrin saturation at 30.9%, but ferritin was low at 14.4 ng/mL. B12 level was in low-normal range at 288 pg/mL. She is seen for a follow-up visit on 08/14/2017. At that point she did agree to begin treatment with Velcade/Revlimid/dexamethasone. She began her cycle 1 of Velcade/Revlimid/dexamethasone on 09/11/2017. At that time she also began prophylaxis with Bactrim and acyclovir. When she returned for her day 4 Velcade injection, she had developed a significant skin eruption, and she was advised to stop both the Revlimid and the Bactrim. At day 8 she had a reduction in the Velcade dosage to 1.0 mg/m???, as her neutrophil count had dropped to 800 and she also was experiencing some neuropathy. The Revlimid remained on hold. As of 10/17/2017 the ANC was still only 700, and I did opt to delay her 2nd cycle of treatment. Her repeat protein electrophoresis from 10/09/2017 did show a decline in her M protein to 2.71 g/dL compared to a pretreatment level of 3.73 g/dL. She eventually continued with cycle 2 on 10/23/2017 with the Velcade dosage reduced at 1.0 mg/m???. The Revlimid dosage was reduced to 10 mg. Despite the reductions, her cycle 3 was delayed again due to neutropenia. Her repeat protein electrophoresis on 11/20/2017 showed essentially stable M protein level at 2.77 g/dL. She continued with cycle 3 on 12/04/2017. Her neutrophil count at that point was back up to 1900. With that cycle she stopped Revlimid after 1 day and her day for Velcade was held due to multiple symptoms including sore throat, swelling in her throat, hoarseness, and cough. She did receive day 8 Velcade, but her day 11 treatment also was held. She eventually did continue with a 4th cycle of treatment on 12/26/2017 and with the 5th cycle on a 01/16/2018, but with both of those she showed up for only 3 of her scheduled Velcade injections. As of cycle 5 her M protein was still basically stable at 2.82 g/dL. Beginning with cycle 6 her treatment was changed to a 28 day cycle with Velcade administered on days 1, 8, and 15, with Revlimid administered on a day schedule, and with dexamethasone administered weekly. With that change her compliance improved. As of 03/05/2018 she began her 7th cycle of treatment. At that point her serum protein electrophoresis had shown a significant decline in the M protein, to 1.41 g/dL. With continued treatment there was further decline in the M protein. As of 05/08/2018 on day 8 of cycle 9 it had decreased to 0.84 g/dL. However, at day 1 of cycle 10 on 05/30/2018 it increased slightly to 1.11 g/dL. At cycle 10 day 22 on 06/19/2018 it had stabilized at 1.09 g/dL. Restaging PET/CT on 06/23/2018 showed the T1 lesion to be weakly FDG positive and unchanged from the previous study in May 2017. Given those findings, I did opt to put her further treatment on hold. Her repeat protein electrophoresis on 07/20/2018 showed an increase in the M protein to 1.4 g/dL. The free light chain assay showed elevated kappa light chain at 83.8 mg/L with lambda light chain 2.9 mg/L and elevated kappa/lambda ratio at 28.90. With those findings, she was advised to continue to second line treatment. She had indicated that she preferred not to be on any type of IV infusion. As such, I recommend a trial of therapy with Revlimid/ixazomib/dexamethasone. She began cycle 1 of Revlimid/ixazomib/dexamethasone on 08/29/2018. Due to her previous toxicities with Revlimid, it was initiated at a reduced dosage of 10 mg daily on a 21/28 day schedule with ixazomib dosed at 4 mg on days 18 and 15 and the dexamethasone dose at 40 mg weekly. She was able to tolerate it with acceptable toxicity, and she continued with cycle 2 on 09/26/2018 and with cycle 3 on 10/25/2018. Her repeat protein electrophoresis in September did show some decline in the M protein, to 1.0 g/dL. It then stabilized, and she continued her same treatment. As of 01/24/2019 the protein electrophoresis showed her quantitative M protein at 1.1 g/dL. The free light chain assay showed kappa light chain elevated at 105.1 mg/L, lambda light chain 7.0 mg/L, and elevated kappa/lambda ratio at 15.01. She continued treatment with Revlimid/ixazomib/dexamethasone. As of 04/22/2019 her protein electrophoresis showed M protein stable at 0.9 g/dL, but her free light chain assay continued to show elevated kappa/lambda ratio at 15.37. Her quantitative immunoglobulin levels showed IgG 1165 mg/dL with IgA low at 10 mg/dL and IgM low at 17 mg/dL. Her CBC showed stable hemoglobin at 12 g, but her ANC was low at 700. As of 05/06/2019 her treatment was put on hold due to persistent neutropenia. Her 24 urine protein electrophoresis showed no monoclonal protein. Her other medical illnesses include hypertension, hyperlipidemia, coronary artery disease, hypothyroidism, GERD, fibromyalgia, degenerative arthritis, and anxiety/depression. Her surgical/procedural history includes coronary angioplasty/stent placement 2015. She has arthroscopic left knee surgery, and she also has had surgery on the right shoulder. She has history of smoking for 25 years, from 1-3 packs of cigarettes daily. She quit smoking in 1989. She has had just occasional alcohol use. She is [employer], and she will not accept blood products. INTERIM HISTORY: In May 2019 she had taken a trip to [place], and while she was there she became very ill and required treatment for pneumonia. She returned here for a follow-up visit in June. Her repeat protein electrophoresis on 07/02/2019 showed increase in the M protein to 2.0 g/dL. Her free light chain assay showed increased kappa light chain to 142 mg/L with lambda light chain 2.9 mg/L, and elevated kappa/lambda ratio at 49.38. Restaging PET/CT on 07/13/2019 showed stable findings in the T1 lesion with FDG activity no greater than that of marrow background, consistent with successfully treated disease. There was no evidence of any new lesions. However, with the significant increase in the M protein and in the kappa free light chain, she was recommended to proceed with third line treatment with daratumumab in combination with carfilzomib and dexamethasone. She underwent placement of Port-A-Cath venous access device in preparation for that treatment. Her baseline echocardiogram showed normal left ventricular function with ejection fraction estimated at 60%. She has not returned to begin cycle 1 of daratumumab/carfilzomib/dexamethasone on 08/12/2019. The initial infusion of daratumumab was administered in divided doses over 2 days. She tolerated the treatment well, and she then continued with her day 8 daratumumab and day 8/day 9 carfilzomib last week. She is seen for a followup visit. She has not had a good week. She had developed nausea and profuse sweating early in the morning on Monday following her day treatment on Monday. She thinks she had a fever, but it was not documented. She then felt better and she was able to receive her day 9 carfilzomib infusion. On Monday she had angina pain, which was relieved with nitroglycerin. On she had diarrhea, and on Monday she had more angina pain. She continued to have a little nausea off and on. She complains that she has no energy. There has been a significant decline in her activity tolerance. Her ECOG score is 2. She says her appetite is okay now. She has not had any other fever. She has sweating almost every night. She has allergy related sinus symptoms, which are adequately managed with Benadryl and Flonase. She says she gets winded very easily. She has cough. She just occasionally brings up a little white phlegm with it. She says her bowel function is okay now. She has no complaints. Her pain has gotten worse, mainly in the lower back. She has occasional headache. She sometimes has dizziness. She has a little numbness/tingling in her hands. She has been under a fair amount of stress. Medications: amLODIPine Besylate 1 Tablet (of 5 mg) Oral daily, Body/Hair/Skin/Nails 2 Capsule Oral daily, Xhzwmoifiz-ZWBZ-Yfscafic (50-325-40 mg) Tablet Oral four times a day, Cholecalciferol 2 (1000 Units) Capsule Oral daily, Curcumin 95 1 (500 mg) Capsule Oral daily PRN, Cymbalta 1 (60 mg) Capsule Delayed Release Particles Oral daily, Levothyroxine Sodium 1 (50 mcg) Tablet Oral daily, Lisinopril 1 (25 mg) Tablet Oral daily, LORazepam 0.5 - 1 (1 mg) Tablet Oral q 4 hours PRN, Multivitamin Adult 1 Tablet Oral daily, Nitroglycerin 1 (400 mcg/spray) Aerosol, solution Translingual PRN, OxyCODONE HCl 1 (30 mg) Tablet Oral 5x/d PRN, Pantoprazole Sodium 1 Tablet (of 40 mg) Tablet, enteric coated Oral daily, Plavix 1 (75 mg) Tablet Oral daily, Pravastatin Sodium 1 (40 mg) Tablet Oral daily, Prochlorperazine Maleate 1 (10 mg) Tablet Oral four times a day PRN, Soma 1 (350 mg) Tablet Oral four times a day PRN, Vitamin E 1 Capsule Oral daily Allergies: Codeine Sulfate, LevoFLOXacin, and Vicodin. Review of Systems: Constitutional - She feels that she has no energy. She is able to do just very little housework. Her appetite comes and goes, but her weight is stable. No fever, chills, hot flashes, or night sweats. ECOG score is 2, ENMT - She has chronic allergies that are adequatley controlled with Benadryl and Flonase. No mouth sores. The swelling in her lymph nodes is present. No sore throat or difficulty swallowing, Hematologic/Lymphatic - She bruises easily, Respiratory - She has shortness of breath with exertion. She has a cough that is occasional productive with white phlegm. No pleuritic pain or hemoptysis, Cardiovascular - She had some angina pain last week that was relieved with Nitroglycerin. No palpitations, Gastrointestinal - She is having intermittent nausea or vomiting. No heartburn or acid reflux. No diarrhea or constipation. No blood in the stool or black stools, Genitourinary (F) - No dysuria or hematuria. No urinary frequency. No urgency or incontinence, Musculoskeletal - She has lower back pain, Integumentary - No skin complications, Neurologic - She's having occasional headaches. She has dizziness with positional changes. No numbness/paresthesias or other focal neurologic symptoms, Psychiatric - She has some anxiety or depression. She is having difficulty sleeping but it is improved with the Ativan. Vital Signs: Performed on Aug 26, 2019 09:16 Height - 66.00 in Weight - 165.2 lbs (HIGH) BSA - 1.84 sq.m BMI - 26.66 Temperature - 98.4 F Pulse - 82 /min Respiration - 18 /min BP - 146/71 mm(hg) (HIGH) O2 Sat - 97 % Pain - 7 Physical Examination: Constitutional - She looks pretty good generally, Eyes - Sclerae nonicteric. Conjunctivae clear, ENMT - No lesions noted in the oral cavity, Hematologic/Lymphatic - She appears to have slightly prominent submandibular glands bilaterally. No other cervical, clavicular, or axillary adenopathy noted, Respiratory - Lungs sound clear, Cardiovascular - Heart rhythm is regular. There is no murmur, gallop, or rub noted, Abdomen - Soft. Liver and spleen are not enlarged. There is no abdominal mass or ascites noted and there is no inguinal adenopathy, Extremities - Slight pedal edema, Neurologic - No focal neurologic deficits noted. Lab/Imaging: Test performed on Aug 26, 2019 08:35 Sodium 137 mmol/L Potassium 4.3 mmol/L Chloride 100 mmol/L CO2 25 mmol/L Anion Gap 16.3 BUN 7 mg/dL Creatinine 0.8 mg/dL Cr Clearance (Est) 79.7500 mL/min eGFR 71.1 mL/min Glucose 104 mg/dL Calcium 9.3 mg/dL Protein, Total 7.9 g/dL Albumin 3.9 g/dL Globulin 4.0 g/dL Bilirubin, Total 0.3 mg/dL ALT (SGPT) 14 U/L AST (SGOT) 17 U/L Alkaline Phosphatase 86 IU/L WBC 2.0 10 3/uL RBC 3.20 10 6/uL HGB 10.5 g/dL HCT 31.0 % MCV 96.9 fL MCH 32.8 pg MCHC 33.9 g/dL RDW 14.2 % Platelet Count 76 10 3/cmm MPV 11.3 fL Neutrophils 1.0 10 3/uL Lymphocytes 0.5 10 3/uL Monocytes 0.4 10 3/uL Eosinophils 0.0 10 3/uL Basophils 0.0 10 3/uL Neutrophil % 51.7 % Lymphocyte % 25.9 % Monocyte % 20.4 % Eosinophil % 2.0 % Basophils % 0.0 % Impression: 1. Patient with IgG kappa myeloma. Bone marrow aspiration/biopsy on 05/17/2017 showed 32% plasma cells, consistent with myeloma. The FISH panel showed gain of chromosome 1q, deletions of RB 1 and LAMP1, and gain of IG. Her baseline M protein was 2.87 g/dL. She was mildly anemic and she had significantly elevated sedimentation rate. She had normal renal function and negative 24-hour urine protein electrophoresis. Skeletal survey showed no lytic bone involvement. PET/CT and MRI both showed findings suspicious for involvement of the T1 vertebral body. She does not appear to be overtly symptomatic with it. 2. Her bone marrow also showed absent storage iron. Her other medical illnesses include: 3. Hypertension. 4. Hyperlipidemia. 5. Coronary artery disease with angioplasty/stent placement in February 2016. 6. Hypothyroidism. 7. GERD. 8. Degenerative arthritis/degenerative disease of the spine. 9. Fibromyalgia. 10. Anxiety/depression. She has been undergoing treatment with Velcade/Revlimid/dexamethasone, cycle 1 beginning on 09/11/2017. Overall, her treatment was very suboptimal due in part to multiple side effects which included skin eruption and neutropenia, among others. Compliance also had been somewhat of an issue. Beginning with her 6th cycle of treatment, on 02/05/2018, her treatment was changed to a 28 day schedule with Velcade administered at a reduced dosage on days 1, 8, and 15, with Revlimid administered at 10 mg daily on a 21/28 day schedule, and with dexamethasone administered weekly. She began cycle 7 on 03/05/2018. Her serum protein electrophoresis at that point did show a significant decrease in the M protein, to 1.41 g/dL. She then continued treatment at the same dosages, but intermittently she still had moderately severe neutropenia. She had otherwise been tolerating the treatment well. She began her 10th cycle of treatment on 05/30/2018. At that point her M protein had stabilized at just over 1 g/dL. She appeared stable clinically, and restaging PET/CT showed only mild FDG activity in the T1 lesion. There were no other areas of FDG uptake, and there was no significant change compared to the prior study in May 2017. As on 07/20/2018 her repeat protein electrophoresis showed a significant increase in the M protein to 1.4 g/dL, and her free light chain assay showed an increase in the kappa/lambda ratio to28.90. With those findings, she was advised to proceed with second line treatment. She indicated that she preferred not to have any IV medication. As such, on 08/29/2018 she began a trial of therapy with Revlimid/ixazomib/dexamethasone. Due to her previous toxicities, the Revlimid was initiated at a reduced dosage of 10 mg daily on a 21/28 day schedule. As of October 2018, following 3 cycles of treatment, her M protein had stabilized at 1.0 g/dL. She continued her same treatment, and as of 01/24/2019 her M protein and her free light chain had remained stable. Her clinical status at that time also appeared stable, and she continued treatment with Revlimid, ixazomib, and dexamethasone at the same dosages. As of 04/22/2019 her protein electrophoresis showed M protein stable at 0.9 g/dL, but her free light chain assay continued to show elevated kappa/lambda ratio at 15.37. Her quantitative immunoglobulin levels showed IgG 1165 mg/dL with IgA low at 10 mg/dL and IgM low at 17 mg/dL. Her CBC showed stable hemoglobin at 12 g, but her ANC was low at 700. As of 05/06/2019 her treatment was put on hold due to persistent neutropenia. Her 24 hour urine protein electrophoresis showed no monoclonal protein. As of her follow-up visit in June 2019 there was evidence of disease progression with significant increase in her M protein and and her kappa free light chain. Her restaging PET/CT showed stable findings at the T1 vertebral body lesion and no evidence of any new lesions. With those findings, she began third line treatment with daratumumab/carfilzomib/dexamethasone on 08/12/2019. She tolerated her day 1/day 2 treatments very well. She had continued with day 8/day 9 treatment last week. She had multiple side effects following the day 8 treatment, which I suspect were mainly due to the daratumumab. She is feeling a little better now, though she continues to have significant fatigue, and there has been a significant decline in her blood counts. Plan: I am going to hold her week 3 daratumumab and her day 15/day 16 carfilzomib infusions. I will see her again in 1 week. Depending on her blood counts and symptomatic status, I may consider continuing with her 3rd dosage of daratumumab, but the carfilzomib will remain on hold until cycle 2. Signed By: Sean Sanchez M.D. <<Signature on File>>
== END 2019-08-27 06:42 | disposition home or self-care (01) ==
PROVIDERS: Family Provider Internal Medicine; PCP Internal Medicine; Visit Provider Internal Medicine Medical Oncology
DX: C90.00 Multiple myeloma not having achieved remission (principal); M47.812 Spondylosis without myelopathy or radiculopathy, cervical region; M47.816 Spondylosis without myelopathy or radiculopathy, lumbar region; M16.0 Bilateral primary osteoarthritis of hip; I10 Essential (primary) hypertension; E78.5 Hyperlipidemia, unspecified; I25.10 Atherosclerotic heart disease of native coronary artery without angina pectoris; E03.9 Hypothyroidism, unspecified; K21.9 Gastro-esophageal reflux disease without esophagitis; M79.7 Fibromyalgia; F41.8 Other specified anxiety disorders; Z79.899 Other long term (current) drug therapy; Z79.891 Long term (current) use of opiate analgesic; Z79.02 Long term (current) use of antithrombotics/antiplatelets; Z95.5 Presence of coronary angioplasty implant and graft; Z87.891 Personal history of nicotine dependence; Z87.01 Personal history of pneumonia (recurrent)
CPT/HCPCS: 36591; 80053; 85025; 99214

== ENCOUNTER 2019-09-02 08:43 | Outpatient (CLI) | payer MEDICARE, SELFPAY ==
[2019-09-02 08:58] LABS: Basophils % 0.6 %; Eosinophils % 0.6 %; Hemoglobin 11.7 g/dL (11.5-15.3); Lymphocytes # 1.4 10^3/uL (0.8-4.8); Lymphocytes % 40.1 %; Mean Corpuscular HGB Conc 33.4 g/dL (30.0-36.0); Mean Corpuscular Volume 98.6 fL (81-99); Mean Platelet Volume 9.7 fL (7.4-10.4); Monocytes # 0.3 10^3/uL (0.2-0.9); Monocytes % 9.3 %; Neutrophils # 1.8 10^3/uL (1.8-7.7); Neutrophils % 49.4 %; Nucleated Red Blood Cells % 0 %; Platelet Count 212 10^3/cmm (130-400); Red Blood Count 3.55 10^6/uL (4.1-5.3); White Blood Count 3.5 10^3/uL (4.0-10.0)
[2019-09-02] MEDS: sodium chloride 0.9% 250 ML 75 ML IV (09:55)
[2019-09-02] MEDS: acetaminophen 325 mg Tablet 650 MG PO (09:55)
== END 2019-09-02 08:44 | disposition home or self-care (01) ==
LOC: ONCMED 08:43
PROVIDERS: Family Provider Internal Medicine; PCP Internal Medicine; Visit Provider Internal Medicine Medical Oncology
DX: Z51.12 Encounter for antineoplastic immunotherapy (principal); C90.00 Multiple myeloma not having achieved remission
CPT/HCPCS: 85025; 96367; 96413; 96415; J1200; J7050

== ENCOUNTER 2019-09-03 08:38 | Outpatient (CLI) | payer MEDICARE, SELFPAY ==
[2019-09-03] MEDS: dexamethasone 4 mg Tablet 20 MG PO (08:14)
[2019-09-03] MEDS: acetaminophen 325 mg Tablet 650 MG PO (08:45)
== END 2019-09-03 08:39 | disposition home or self-care (01) ==
LOC: ONCMED 08:40
PROVIDERS: Family Provider Internal Medicine; PCP Internal Medicine; Visit Provider Internal Medicine Medical Oncology
DX: Z51.12 Encounter for antineoplastic immunotherapy (principal); C90.00 Multiple myeloma not having achieved remission
CPT/HCPCS: 96367; 96413; 96415; J1200; J7040; J8540; J9145

== ENCOUNTER 2019-09-11 08:50 | Outpatient (CLI) | payer MEDICARE, SELFPAY ==
[2019-09-11 09:19] LABS: Basophils % 0.4 %; Eosinophils # 0.1 10^3/uL (0.0-0.8); Eosinophils % 2.8 %; Hematocrit 31.6 % (37.0-47.0); Hemoglobin 10.4 g/dL (11.5-15.3); Lymphocytes # 1.4 10^3/uL (0.8-4.8); Lymphocytes % 48.2 %; Mean Corpuscular HGB Conc 32.9 g/dL (30.0-36.0); Mean Corpuscular Volume 100.3 fL (81-99); Mean Platelet Volume 8.9 fL (7.4-10.4); Monocytes # 0.3 10^3/uL (0.2-0.9); Monocytes % 10.2 %; Neutrophils # 1.1 10^3/uL (1.8-7.7); Neutrophils % 38.4 %; Nucleated Red Blood Cells % 0 %; Platelet Count 173 10^3/cmm (130-400); Red Blood Count 3.15 10^6/uL (4.1-5.3); White Blood Count 2.8 10^3/uL (4.0-10.0)
[2019-09-11 09:40] LABS: Alanine Aminotransferase 16 U/L (0-33); Albumin Level 4.1 g/dL (3.5-5.2); Alkaline Phosphatase 100 IU/L (35-105); Anion Gap 14.9 (5-19); Aspartate Amino Transferase 20 U/L (0-32); Blood Urea Nitrogen 8 mg/dL (8-23); Carbon Dioxide 25 mmol/L (22-29); Chloride 100 mmol/L (98-107); Globulin 3.7 g/dL (1.3-4.6); Glucose 72 mg/dL (65-115); Osmolality Calculated 276 mOsm/kg (285-295); Potassium 3.9 mmol/L (3.5-5.1); Sodium 136 mmol/L (136-145); Total Bilirubin 0.2 mg/dL (0.15-1.2); Total Protein 7.8 g/dL (6.6-8.7)
[2019-09-11] MEDS: sodium chloride 0.9% 1,000 ML 75 ML IV (10:30)
[2019-09-11] MEDS: acetaminophen 325 mg Tablet 650 MG PO (10:30)
[2019-09-12 07:26] LABS: PROTEIN, TOTAL 6.7 g/dL (6.1-8.1)
[2019-09-12 13:26] LABS: KAPPA LIGHT CHAIN, FREE, SERUM 143.7 mg/L (3.3-19.4); KAPPA/LAMBDA LIGHT CHAINS FREE 71.85 (0.26-1.65)
[2019-09-12 16:11] LABS: ABNORMAL PROTEIN BAND 1 1.5 g/dL (NONE DETECTED); ABNORMAL PROTEIN BAND 2 0.1 g/dL (NONE DETECTED); ALBUMIN 3.7 g/dL (3.8-4.8); ALPHA 1 GLOBULIN 0.3 g/dL (0.2-0.3); ALPHA 2 GLOBULIN 0.6 g/dL (0.5-0.9); BETA 1 GLOBULIN 0.4 g/dL (0.4-0.6); BETA 2 GLOBULIN 0.2 g/dL (0.2-0.5); GAMMA GLOBULIN 1.6 g/dL (0.8-1.7)
--- NOTE | 2019-09-14 13:02 | ONC FU_ITS ---
Dr. Sanchez Patient Follow-Up Note Patient: Karely Armenta Unit #: [id number]: [id number] Dicatated By: Sean Sanchez M.D.Date of Visit:Sep 11, 2019 Onc Med Follow-up/Prog Note Chief Complaint: Myeloma. History of Present Illness: This is a 69 year-old woman with IgG kappa myeloma. She was found to be moderately anemic in December 2016 when she was admitted to the hospital with pneumonia. She also reported having had an illness the preceding summer, in October or November, which may have been tick fever, but that was never confirmed. Her follow-up laboratory studies with Dr. Garcia on 05/03/2017 included CBC showing hemoglobin 11.9 g with white blood cell count 5100 and platelet count 155,000. Her sedimentation rate was significantly elevated at 94 mm/hour. The chem profile showed normal renal function with BUN 13 and creatinine 0.96 mg/dL. Calcium was normal at 9.0 mg/dL. The total protein was elevated at 9.0 g/dL with albumin 4.0 g/dL and calculated serum globulin elevated at 5.0 g/dL. Protein electrophoresis showed a monoclonal protein quantitating at 2.5 g/dL. Immunofixation showed an IgG kappa paraprotein measuring 2.87 g/dL. Hepatits screen was nonreactive to hepatitis C, hepatitis Bs antigen, and hepatitis B core total Ab referral. The hepatitis B surface antibody was < 3.10. LDH was normal at 149 U/L. The beta-2 microglobulin was slightly elevated at 0.420 mg/dL. I had seen her initially on 05/11/2017. Repeat protein electrophoresis with immunofixation prior to that visit, from 05/09/2017, showed IgG kappa monoclonal protein quantitating at 2.87 g/dL. The kappa light chain was elevated at 177.96 mg/L with lambda light chain 1.73 mg/L and kappa/lambda ratio elevated at 102. On her further evaluation there was no monoclonal protein detected in a 24-hour urine specimen. Skeletal survey on 05/11/2017 showed cervical and lumbar spondylosis and bilateral hip joint osteoarthritic changes. There was no radiographic evidence of multiple myeloma. She underwent bone marrow aspiration/biopsy on 05/17/2017. The cellularity was estimated at 70% with 32% plasma cells. Iron stores were noted to be absent. The FISH panel for myeloma showed gain of chromosome 1q, deletions of RB 1 and LAMP1, and gain of IG. The standard chromosome analysis was normal. Overall, the findings were consistent with plasma cell neoplasm/myeloma. Staging PET/CT on 06/03/2017 showed a single FDG avid osteolytic site in the T1 vertebral body which was felt to possibly represent multiple myeloma. She then had further evaluation with MRI of the spine on 07/12/2017. There were significant degenerative changes in the cervical spine which included moderate central canal stenosis at C4-C5, C5-C6, and C7 as well as bilateral nerve root encroachment at C5, C6, and C7. There were also degenerative changes in the lumbar spine with interval STIR signal abnormality and enhancement of T10-L5 spinous processes suggesting possible myelomatous changes. The thoracic spine showed subtle diffuse signal and enhancement abnormality involving the T1 vertebral body. In correlation with the PET/CT findings, this was felt to be suspicious for neoplastic process, including multiple myeloma. There were no actual lytic lesions identified. She had further laboratory evaluation on 07/26/2017. Her CBC at that point showed hemoglobin down slightly to 10.1 g with white blood cell count 3700 and platelet count 122,000. Chem profile showed borderline renal function with BUN 12 and creatinine 1.1 mg/dL and calculated GFR 49 mm/hour. Repeat protein electrophoresis showed M protein increased to 3.22 g/dL compared to 2.87 g/dL in April. Her quantitative immunoglobulin levels showed elevated IgG at 3800 mg/dL and IgA low at less than 8.00 and IgM low at 5.50 mg/dL. Her serum iron studies showed normal transferrin saturation at 30.9%, but ferritin was low at 14.4 ng/mL. B12 level was in low-normal range at 288 pg/mL. She is seen for a follow-up visit on 08/14/2017. At that point she did agree to begin treatment with Velcade/Revlimid/dexamethasone. She began her cycle 1 of Velcade/Revlimid/dexamethasone on 09/11/2017. At that time she also began prophylaxis with Bactrim and acyclovir. When she returned for her day 4 Velcade injection, she had developed a significant skin eruption, and she was advised to stop both the Revlimid and the Bactrim. At day 8 she had a reduction in the Velcade dosage to 1.0 mg/m???, as her neutrophil count had dropped to 800 and she also was experiencing some neuropathy. The Revlimid remained on hold. As of 10/17/2017 the ANC was still only 700, and I did opt to delay her 2nd cycle of treatment. Her repeat protein electrophoresis from 10/09/2017 did show a decline in her M protein to 2.71 g/dL compared to a pretreatment level of 3.73 g/dL. She eventually continued with cycle 2 on 10/23/2017 with the Velcade dosage reduced at 1.0 mg/m???. The Revlimid dosage was reduced to 10 mg. Despite the reductions, her cycle 3 was delayed again due to neutropenia. Her repeat protein electrophoresis on 11/20/2017 showed essentially stable M protein level at 2.77 g/dL. She continued with cycle 3 on 12/04/2017. Her neutrophil count at that point was back up to 1900. With that cycle she stopped Revlimid after 1 day and her day for Velcade was held due to multiple symptoms including sore throat, swelling in her throat, hoarseness, and cough. She did receive day 8 Velcade, but her day 11 treatment also was held. She eventually did continue with a 4th cycle of treatment on 12/26/2017 and with the 5th cycle on a 01/16/2018, but with both of those she showed up for only 3 of her scheduled Velcade injections. As of cycle 5 her M protein was still basically stable at 2.82 g/dL. Beginning with cycle 6 her treatment was changed to a 28 day cycle with Velcade administered on days 1, 8, and 15, with Revlimid administered on a day schedule, and with dexamethasone administered weekly. With that change her compliance improved. As of 03/05/2018 she began her 7th cycle of treatment. At that point her serum protein electrophoresis had shown a significant decline in the M protein, to 1.41 g/dL. With continued treatment there was further decline in the M protein. As of 05/08/2018 on day 8 of cycle 9 it had decreased to 0.84 g/dL. However, at day 1 of cycle 10 on 05/30/2018 it increased slightly to 1.11 g/dL. At cycle 10 day 22 on 06/19/2018 it had stabilized at 1.09 g/dL. Restaging PET/CT on 06/23/2018 showed the T1 lesion to be weakly FDG positive and unchanged from the previous study in May 2017. Given those findings, I did opt to put her further treatment on hold. Her repeat protein electrophoresis on 07/20/2018 showed an increase in the M protein to 1.4 g/dL. The free light chain assay showed elevated kappa light chain at 83.8 mg/L with lambda light chain 2.9 mg/L and elevated kappa/lambda ratio at 28.90. With those findings, she was advised to continue to second line treatment. She had indicated that she preferred not to be on any type of IV infusion. As such, I recommend a trial of therapy with Revlimid/ixazomib/dexamethasone. She began cycle 1 of Revlimid/ixazomib/dexamethasone on 08/29/2018. Due to her previous toxicities with Revlimid, it was initiated at a reduced dosage of 10 mg daily on a 21/28 day schedule with ixazomib dosed at 4 mg on days 18 and 15 and the dexamethasone dose at 40 mg weekly. She was able to tolerate it with acceptable toxicity, and she continued with cycle 2 on 09/26/2018 and with cycle 3 on 10/25/2018. Her repeat protein electrophoresis in September did show some decline in the M protein, to 1.0 g/dL. It then stabilized, and she continued her same treatment. As of 01/24/2019 the protein electrophoresis showed her quantitative M protein at 1.1 g/dL. The free light chain assay showed kappa light chain elevated at 105.1 mg/L, lambda light chain 7.0 mg/L, and elevated kappa/lambda ratio at 15.01. She continued treatment with Revlimid/ixazomib/dexamethasone. As of 04/22/2019 her protein electrophoresis showed M protein stable at 0.9 g/dL, but her free light chain assay continued to show elevated kappa/lambda ratio at 15.37. Her quantitative immunoglobulin levels showed IgG 1165 mg/dL with IgA low at 10 mg/dL and IgM low at 17 mg/dL. Her CBC showed stable hemoglobin at 12 g, but her ANC was low at 700. As of 05/06/2019 her treatment was put on hold due to persistent neutropenia. Her 24 urine protein electrophoresis showed no monoclonal protein. Her other medical illnesses include hypertension, hyperlipidemia, coronary artery disease, hypothyroidism, GERD, fibromyalgia, degenerative arthritis, and anxiety/depression. Her surgical/procedural history includes coronary angioplasty/stent placement 2015. She has arthroscopic left knee surgery, and she also has had surgery on the right shoulder. She has history of smoking for 25 years, from 1-3 packs of cigarettes daily. She quit smoking in 1989. She has had just occasional alcohol use. She is [employer], and she will not accept blood products. INTERIM HISTORY: In May 2019 she had taken a trip to [place], and while she was there she became very ill and required treatment for pneumonia. She returned here for a follow-up visit in June. Her repeat protein electrophoresis on 07/02/2019 showed increase in the M protein to 2.0 g/dL. Her free light chain assay showed increased kappa light chain to 142 mg/L with lambda light chain 2.9 mg/L, and elevated kappa/lambda ratio at 49.38. Restaging PET/CT on 07/13/2019 showed stable findings in the T1 lesion with FDG activity no greater than that of marrow background, consistent with successfully treated disease. There was no evidence of any new lesions. However, with the significant increase in the M protein and in the kappa free light chain, she was recommended to proceed with third line treatment with daratumumab in combination with carfilzomib and dexamethasone. She underwent placement of Port-A-Cath venous access device in preparation for that treatment. Her baseline echocardiogram showed normal left ventricular function with ejection fraction estimated at 60%. She returned to begin cycle 1 of daratumumab/carfilzomib/dexamethasone on 08/12/2019. The initial infusion of daratumumab was administered in divided doses over 2 days. She tolerated the treatment well. However, her day 8 treatment was complicated by nausea and profuse diaphoresis, which she attributed to the daratumumab. She was able to complete her day 9 carfilzomib treatment. Her day 15/16 treatment was withheld due to a drop in her white blood cell count to 2000 with her ANC at 1000. She did not have fever or other complications. She was given her week 3 daratumumab the following week, but I did opt to split the dosage over 2 days. She is seen for a followup visit. She has been feeling pretty good generally. She does complain that she is tired, but she also has been very busy, as she is in the process of moving. She had no acute toxicity following the daratumumab infusions last week. She has had just slight fever at times, in the range of 98 to 99 degrees. She reports having super sweating in the middle of the night. She has good appetite. She has some allergy related sinus symptoms, but that is chronic. She has not had shortness of breath or cough. In the past 2 weeks she has had to take nitroglycerin on 2 occasions. She has no GI/ complaints other than her typical acid reflux symptoms. She has pain in the lower back/hips, but lately it has been better. She still complains of having funny headaches. She has lightheadedness at different times. She has numbness/tingling in her hands. She also reports having some restless leg symptoms. Medications: amLODIPine Besylate 1 Tablet (of 5 mg) Oral daily, Body/Hair/Skin/Nails 2 Capsule Oral daily, Vsaynpssoa-ZNGF-Nnrxklqi (50-325-40 mg) Tablet Oral four times a day, Cholecalciferol 2 (1000 Units) Capsule Oral daily, Curcumin 95 1 (500 mg) Capsule Oral daily PRN, Cymbalta 1 (60 mg) Capsule Delayed Release Particles Oral daily, Levothyroxine Sodium 1 (50 mcg) Tablet Oral daily, Lisinopril 1 (25 mg) Tablet Oral daily, LORazepam 0.5 - 1 (1 mg) Tablet Oral q 4 hours PRN, Multivitamin Adult 1 Tablet Oral daily, Nitroglycerin 1 (400 mcg/spray) Aerosol, solution Translingual PRN, OxyCODONE HCl 1 (30 mg) Tablet Oral 5x/d PRN, Pantoprazole Sodium 1 Tablet (of 40 mg) Tablet, enteric coated Oral daily, Plavix 1 (75 mg) Tablet Oral daily, Pravastatin Sodium 1 (40 mg) Tablet Oral daily, Prochlorperazine Maleate 1 (10 mg) Tablet Oral four times a day PRN, QUEtiapine Fumarate 2 Tablet (of 25 mg) Oral at bedtime, Soma 1 (350 mg) Tablet Oral four times a day PRN, Vitamin E 1 Capsule Oral daily Allergies: Codeine Sulfate, LevoFLOXacin, and Vicodin. Review of Systems: Constitutional - She is feeling great. Her energy level has improved. She is doing light work. Her appetite is good and weight is stable. She temperature has been elevated for her, running 99.0 with some chills. She is having hot flashes with sweating. ECOG score is 1, ENMT - She has chronic allergies. No mouth sores. No sore throat or difficulty swallowing, Hematologic/Lymphatic - She bruises easily, Respiratory - No shortness of breath. No cough. No pleuritic pain or hemoptysis, Cardiovascular - She has some anginal pain two different days, resolved with nitroglycerin. No palpitations, Gastrointestinal - No nausea or vomiting. No heartburn or acid reflux. No diarrhea or constipation. No blood in the stool or black stools, Genitourinary (F) - No dysuria or hematuria. No urinary frequency. No urgency or incontinence, Musculoskeletal - Her pain has improved, Integumentary - No skin rash, Neurologic - She continues to have occasional headaches. She dizziness with positional changes. No numbness/paresthesias or other focal neurologic symptoms, Psychiatric - She has some anxiety and depression. She is having difficulty sleeping, but it has improved with the Ativan and Seroquel. Vital Signs: Performed on Sep 11, 2019 14:55 Height - 66.00 in Temperature - 97.9 F (LOW) Pulse - 84 /min Respiration - 18 /min BP - 115/67 mm(hg) O2 Sat - 96 % Pain - 0 Fatigue - 0 Performed on Sep 11, 2019 09:45 Height - 66.00 in Weight - 163.6 lbs (LOW) BSA - 1.84 sq.m BMI - 26.41 Temperature - 98.5 F Pulse - 79 /min Respiration - 18 /min BP - 145/64 mm(hg) (HIGH) O2 Sat - 98 % Pain - 3 Physical Examination: Constitutional - She looks pretty good generally, Eyes - Sclerae nonicteric. Conjunctivae clear, ENMT - No lesions noted in the oral cavity, Hematologic/Lymphatic - She has slightly prominent submandibular glands bilaterally. No other cervical, clavicular, or axillary adenopathy noted, Respiratory - Lungs sound clear, Cardiovascular - Heart rhythm is regular. There is no murmur, gallop, or rub noted, Abdomen - Soft. Liver and spleen are not enlarged. There is no abdominal mass or ascites noted and there is no inguinal adenopathy, Extremities - No edema. He has scattered ecchymoses, Neurologic - No focal neurologic deficits noted. Lab/Imaging: Test performed on Sep 11, 2019 09:07 Sodium 136 mmol/L Potassium 3.9 mmol/L Chloride 100 mmol/L CO2 25 mmol/L Anion Gap 14.9 BUN 8 mg/dL Creatinine 0.7 mg/dL Cr Clearance (Est) 91.1400 mL/min eGFR 83.0 mL/min Glucose 72 mg/dL Calcium 9.0 mg/dL Protein, Total 7.8 g/dL Albumin 4.1 g/dL Globulin 3.7 g/dL Bilirubin, Total 0.2 mg/dL ALT (SGPT) 16 U/L AST (SGOT) 20 U/L Alkaline Phosphatase 100 IU/L WBC 2.8 10 3/uL RBC 3.15 10 6/uL HGB 10.4 g/dL HCT 31.6 % MCV 100.3 fL MCH 33.0 pg MCHC 32.9 g/dL RDW 15.0 % Platelet Count 173 10 3/cmm MPV 8.9 fL Neutrophils 1.1 10 3/uL Lymphocytes 1.4 10 3/uL Monocytes 0.3 10 3/uL Eosinophils 0.1 10 3/uL Basophils 0.0 10 3/uL Neutrophil % 38.4 % Lymphocyte % 48.2 % Monocyte % 10.2 % Eosinophil % 2.8 % Basophils % 0.4 % Impression: 1. Patient with IgG kappa myeloma. Bone marrow aspiration/biopsy on 05/17/2017 showed 32% plasma cells, consistent with myeloma. The FISH panel showed gain of chromosome 1q, deletions of RB 1 and LAMP1, and gain of IG. Her baseline M protein was 2.87 g/dL. She was mildly anemic and she had significantly elevated sedimentation rate. She had normal renal function and negative 24-hour urine protein electrophoresis. Skeletal survey showed no lytic bone involvement. PET/CT and MRI both showed findings suspicious for involvement of the T1 vertebral body. She does not appear to be overtly symptomatic with it. 2. Her bone marrow also showed absent storage iron. Her other medical illnesses include: 3. Hypertension. 4. Hyperlipidemia. 5. Coronary artery disease with angioplasty/stent placement in February 2016. 6. Hypothyroidism. 7. GERD. 8. Degenerative arthritis/degenerative disease of the spine. 9. Fibromyalgia. 10. Anxiety/depression. She has been undergoing treatment with Velcade/Revlimid/dexamethasone, cycle 1 beginning on 09/11/2017. Overall, her treatment was very suboptimal due in part to multiple side effects which included skin eruption and neutropenia, among others. Compliance also had been somewhat of an issue. Beginning with her 6th cycle of treatment, on 02/05/2018, her treatment was changed to a 28 day schedule with Velcade administered at a reduced dosage on days 1, 8, and 15, with Revlimid administered at 10 mg daily on a 21/28 day schedule, and with dexamethasone administered weekly. She began cycle 7 on 03/05/2018. Her serum protein electrophoresis at that point did show a significant decrease in the M protein, to 1.41 g/dL. She then continued treatment at the same dosages, but intermittently she still had moderately severe neutropenia. She had otherwise been tolerating the treatment well. She began her 10th cycle of treatment on 05/30/2018. At that point her M protein had stabilized at just over 1 g/dL. She appeared stable clinically, and restaging PET/CT showed only mild FDG activity in the T1 lesion. There were no other areas of FDG uptake, and there was no significant change compared to the prior study in May 2017. As on 07/20/2018 her repeat protein electrophoresis showed a significant increase in the M protein to 1.4 g/dL, and her free light chain assay showed an increase in the kappa/lambda ratio to28.90. With those findings, she was advised to proceed with second line treatment. She indicated that she preferred not to have any IV medication. As such, on 08/29/2018 she began a trial of therapy with Revlimid/ixazomib/dexamethasone. Due to her previous toxicities, the Revlimid was initiated at a reduced dosage of 10 mg daily on a 21/28 day schedule. As of October 2018, following 3 cycles of treatment, her M protein had stabilized at 1.0 g/dL. She continued her same treatment, and as of 01/24/2019 her M protein and her free light chain had remained stable. Her clinical status at that time also appeared stable, and she continued treatment with Revlimid, ixazomib, and dexamethasone at the same dosages. As of 04/22/2019 her protein electrophoresis showed M protein stable at 0.9 g/dL, but her free light chain assay continued to show elevated kappa/lambda ratio at 15.37. Her quantitative immunoglobulin levels showed IgG 1165 mg/dL with IgA low at 10 mg/dL and IgM low at 17 mg/dL. Her CBC showed stable hemoglobin at 12 g, but her ANC was low at 700. As of 05/06/2019 her treatment was put on hold due to persistent neutropenia. Her 24 hour urine protein electrophoresis showed no monoclonal protein. As of her follow-up visit in June 2019 there was evidence of disease progression with significant increase in her M protein and and her kappa free light chain. Her restaging PET/CT showed stable findings at the T1 vertebral body lesion and no evidence of any new lesions. With those findings, she began third line treatment with daratumumab/carfilzomib/dexamethasone on 08/12/2019. She has now completed 1 cycle of treatment. She tolerated her day 1/day 2 treatments very well. She developed mulitple side effects following her day 8 treatment, which she attibuted to the daratumumab. She was able to complete her day 9 carfilzomib treatment. Her day 15/16 treatment was withheld due to neutropenia, ANC 1000. She completed her week 3 daratumumab the following week, but with the dosage split over 2 days. She tolerated it without adverse effects. Plan: She will proceed now with cycle 2 of daratumumab/carfilzomib/dexamethasone. The carfilzomib dosage will be reduced due to the neutropenia. To minimize risks of other side effects, I will continue to split the daratumumab dosage over 2 days. She returns in 1 week. Signed By: Sean Sanchez M.D. <<Signature on File>>
== END 2019-09-11 08:51 | disposition home or self-care (01) ==
LOC: ONCMED 08:53
PROVIDERS: Family Provider Internal Medicine; PCP Internal Medicine; Visit Provider Internal Medicine Medical Oncology
DX: Z51.12 Encounter for antineoplastic immunotherapy (principal); Z51.11 Encounter for antineoplastic chemotherapy; C90.00 Multiple myeloma not having achieved remission; D70.1 Agranulocytosis secondary to cancer chemotherapy; T45.1X5A Adverse effect of antineoplastic and immunosuppressive drugs, initial encounter; I10 Essential (primary) hypertension; E78.5 Hyperlipidemia, unspecified; I25.10 Atherosclerotic heart disease of native coronary artery without angina pectoris; E03.9 Hypothyroidism, unspecified; K21.9 Gastro-esophageal reflux disease without esophagitis; M47.9 Spondylosis, unspecified; M79.7 Fibromyalgia; D64.9 Anemia, unspecified; F41.8 Other specified anxiety disorders; Z95.5 Presence of coronary angioplasty implant and graft; Z79.899 Other long term (current) drug therapy; Z79.52 Long term (current) use of systemic steroids
CPT/HCPCS: 36415; 80053; 83883; 84155; 84165; 85025; 93000; 96361; 96367; 96413; 96417; 99214; J1200; J2405; J7030; J7040; J9047; J9145

== ENCOUNTER 2019-09-12 08:44 | Outpatient (CLI) | payer MEDICARE, SELFPAY ==
[2019-09-12] MEDS: acetaminophen 325 mg Tablet 650 MG PO (08:50)
[2019-09-12] MEDS: palonosetron 0.25 mg/5 mL SDV IV (09:15)
[2019-09-12] MEDS: sodium chloride 0.9% 500 ML 999 ML IV (11:30)
[2019-09-12] MEDS: sodium chloride 0.9% 1,000 ML 999 ML IV (16:20)
== END 2019-09-12 08:45 | disposition home or self-care (01) ==
LOC: ONCMED 08:45
PROVIDERS: Family Provider Internal Medicine; PCP Internal Medicine; Visit Provider Internal Medicine Medical Oncology
DX: Z51.11 Encounter for antineoplastic chemotherapy (principal); C90.00 Multiple myeloma not having achieved remission; D47.2 Monoclonal gammopathy; D70.1 Agranulocytosis secondary to cancer chemotherapy
CPT/HCPCS: 96366; 96367; 96413; 96415; 96417; J1200; J2469; J7030; J7040; J9047; J9145

== ENCOUNTER 2019-09-18 08:15 | Outpatient (CLI) | payer MEDICARE, SELFPAY ==
[2019-09-18 08:40] LABS: Eosinophils # 0.1 10^3/uL (0.0-0.8); Eosinophils % 1.7 %; Hematocrit 29.4 % (37.0-47.0); Hemoglobin 9.7 g/dL (11.5-15.3); Lymphocytes # 0.9 10^3/uL (0.8-4.8); Lymphocytes % 30.5 %; Mean Corpuscular Hemoglobin 32.9 pg (28.0-34.0); Mean Corpuscular Volume 99.7 fL (81-99); Mean Platelet Volume 11.1 fL (7.4-10.4); Monocytes # 0.4 10^3/uL (0.2-0.9); Monocytes % 11.6 %; Neutrophils # 1.7 10^3/uL (1.8-7.7); Neutrophils % 55.9 %; Nucleated Red Blood Cells % 0 %; Platelet Count 108 10^3/cmm (130-400); Red Blood Count 2.95 10^6/uL (4.1-5.3); Red Cell Distribution Width 15.1 % (12.1-15.1)
[2019-09-18] MEDS: acetaminophen 325 mg Tablet 650 MG PO (09:50)
[2019-09-18] MEDS: sodium chloride 0.9% 500 ML 999 ML IV (10:58)
== END 2019-09-18 08:16 | disposition home or self-care (01) ==
LOC: ONCMED 08:15
PROVIDERS: Family Provider Internal Medicine; PCP Internal Medicine; Visit Provider Internal Medicine Medical Oncology
DX: Z51.12 Encounter for antineoplastic immunotherapy (principal); C90.00 Multiple myeloma not having achieved remission; D47.2 Monoclonal gammopathy; T45.1X5A Adverse effect of antineoplastic and immunosuppressive drugs, initial encounter; D70.1 Agranulocytosis secondary to cancer chemotherapy
CPT/HCPCS: 85025; 96367; 96413; 96415; 96417; J1200; J2405; J3490; J7040; J9047; J9145

== ENCOUNTER 2019-09-19 08:20 | Outpatient (CLI) | payer MEDICARE, SELFPAY ==
[2019-09-19] MEDS: acetaminophen 325 mg Tablet 650 MG PO (08:55)
[2019-09-19] MEDS: palonosetron 0.25 mg/5 mL SDV IV (08:55)
[2019-09-19] MEDS: sodium chloride 0.9% 500 ML 999 ML IV (10:02)
== END 2019-09-19 08:21 | disposition home or self-care (01) ==
LOC: ONCMED 08:21
PROVIDERS: Family Provider Internal Medicine; PCP Internal Medicine; Visit Provider Internal Medicine Medical Oncology
DX: Z51.11 Encounter for antineoplastic chemotherapy (principal); C90.00 Multiple myeloma not having achieved remission; D47.2 Monoclonal gammopathy; T45.1X5A Adverse effect of antineoplastic and immunosuppressive drugs, initial encounter; D70.1 Agranulocytosis secondary to cancer chemotherapy
CPT/HCPCS: 96367; 96375; 96413; 96415; 96417; J1200; J2469; J3490; J7040; J9047; J9145

== ENCOUNTER 2019-09-25 07:28 | Outpatient (CLI) | payer MEDICARE, SELFPAY ==
[2019-09-25 08:04] LABS: Basophils % 0.4 %; Eosinophils # 0.1 10^3/uL (0.0-0.8); Eosinophils % 2.5 %; Hematocrit 29.1 % (37.0-47.0); Hemoglobin 9.5 g/dL (11.5-15.3); Lymphocytes # 0.8 10^3/uL (0.8-4.8); Lymphocytes % 29.2 %; Mean Corpuscular HGB Conc 32.6 g/dL (30.0-36.0); Mean Corpuscular Hemoglobin 32.9 pg (28.0-34.0); Mean Corpuscular Volume 100.7 fL (81-99); Mean Platelet Volume 10.9 fL (7.4-10.4); Monocytes # 0.3 10^3/uL (0.2-0.9); Monocytes % 12.1 %; Neutrophils # 1.6 10^3/uL (1.8-7.7); Neutrophils % 55.8 %; Nucleated Red Blood Cells % 0 %; Platelet Count 123 10^3/cmm (130-400); Red Blood Count 2.89 10^6/uL (4.1-5.3); Red Cell Distribution Width 15.8 % (12.1-15.1); White Blood Count 2.8 10^3/uL (4.0-10.0)
[2019-09-25 08:08] LABS: Alanine Aminotransferase 12 U/L (0-33); Alkaline Phosphatase 80 IU/L (35-105); Anion Gap 13.8 (5-19); Blood Urea Nitrogen 7 mg/dL (8-23); Calcium 8.6 mg/dL (8.5-10.5); Carbon Dioxide 28 mmol/L (22-29); Chloride 99 mmol/L (98-107); Globulin 3.1 g/dL (1.3-4.6); Glucose 94 mg/dL (65-115); Osmolality Calculated 280 mOsm/kg (285-295); Potassium 3.8 mmol/L (3.5-5.1); Sodium 137 mmol/L (136-145); Total Bilirubin 0.4 mg/dL (0.15-1.2); Total Protein 7.1 g/dL (6.6-8.7)
[2019-09-25 08:17] LABS: Aspartate Amino Transferase 25 U/L (0-32)
[2019-09-25] MEDS: acetaminophen 325 mg Tablet 650 MG PO (09:20)
[2019-09-25] MEDS: sodium chloride 0.9% 500 ML 75 ML IV (09:20)
--- NOTE | 2019-09-28 11:15 | ONC FU_ITS ---
Dr. Sanchez Patient Follow-Up Note Patient: Karely Armenta Unit #: [id number]: [id number] Dicatated By: Sean Sanchez M.D.Date of Visit:September 25, 2019 Onc Med Follow-up/Prog Note Chief Complaint: Myeloma. History of Present Illness: This is a 69 year-old woman with IgG kappa myeloma. She was found to be moderately anemic in December 2016 when she was admitted to the hospital with pneumonia. She also reported having had an illness the preceding summer, in October or November, which may have been tick fever, but that was never confirmed. Her follow-up laboratory studies with Dr. Garcia on 05/03/2017 included CBC showing hemoglobin 11.9 g with white blood cell count 5100 and platelet count 155,000. Her sedimentation rate was significantly elevated at 94 mm/hour. The chem profile showed normal renal function with BUN 13 and creatinine 0.96 mg/dL. Calcium was normal at 9.0 mg/dL. The total protein was elevated at 9.0 g/dL with albumin 4.0 g/dL and calculated serum globulin elevated at 5.0 g/dL. Protein electrophoresis showed a monoclonal protein quantitating at 2.5 g/dL. Immunofixation showed an IgG kappa paraprotein measuring 2.87 g/dL. Hepatits screen was nonreactive to hepatitis C, hepatitis Bs antigen, and hepatitis B core total Ab referral. The hepatitis B surface antibody was < 3.10. LDH was normal at 149 U/L. The beta-2 microglobulin was slightly elevated at 0.420 mg/dL. I had seen her initially on 05/11/2017. Repeat protein electrophoresis with immunofixation prior to that visit, from 05/09/2017, showed IgG kappa monoclonal protein quantitating at 2.87 g/dL. The kappa light chain was elevated at 177.96 mg/L with lambda light chain 1.73 mg/L and kappa/lambda ratio elevated at 102. On her further evaluation there was no monoclonal protein detected in a 24-hour urine specimen. Skeletal survey on 05/11/2017 showed cervical and lumbar spondylosis and bilateral hip joint osteoarthritic changes. There was no radiographic evidence of multiple myeloma. She underwent bone marrow aspiration/biopsy on 05/17/2017. The cellularity was estimated at 70% with 32% plasma cells. Iron stores were noted to be absent. The FISH panel for myeloma showed gain of chromosome 1q, deletions of RB 1 and LAMP1, and gain of IG. The standard chromosome analysis was normal. Overall, the findings were consistent with plasma cell neoplasm/myeloma. Staging PET/CT on 06/03/2017 showed a single FDG avid osteolytic site in the T1 vertebral body which was felt to possibly represent multiple myeloma. She then had further evaluation with MRI of the spine on 07/12/2017. There were significant degenerative changes in the cervical spine which included moderate central canal stenosis at C4-C5, C5-C6, and C7 as well as bilateral nerve root encroachment at C5, C6, and C7. There were also degenerative changes in the lumbar spine with interval STIR signal abnormality and enhancement of T10-L5 spinous processes suggesting possible myelomatous changes. The thoracic spine showed subtle diffuse signal and enhancement abnormality involving the T1 vertebral body. In correlation with the PET/CT findings, this was felt to be suspicious for neoplastic process, including multiple myeloma. There were no actual lytic lesions identified. She had further laboratory evaluation on 07/26/2017. Her CBC at that point showed hemoglobin down slightly to 10.1 g with white blood cell count 3700 and platelet count 122,000. Chem profile showed borderline renal function with BUN 12 and creatinine 1.1 mg/dL and calculated GFR 49 mm/hour. Repeat protein electrophoresis showed M protein increased to 3.22 g/dL compared to 2.87 g/dL in April. Her quantitative immunoglobulin levels showed elevated IgG at 3800 mg/dL and IgA low at less than 8.00 and IgM low at 5.50 mg/dL. Her serum iron studies showed normal transferrin saturation at 30.9%, but ferritin was low at 14.4 ng/mL. B12 level was in low-normal range at 288 pg/mL. She is seen for a follow-up visit on 08/14/2017. At that point she did agree to begin treatment with Velcade/Revlimid/dexamethasone. She began her cycle 1 of Velcade/Revlimid/dexamethasone on 09/11/2017. At that time she also began prophylaxis with Bactrim and acyclovir. When she returned for her day 4 Velcade injection, she had developed a significant skin eruption, and she was advised to stop both the Revlimid and the Bactrim. At day 8 she had a reduction in the Velcade dosage to 1.0 mg/m???, as her neutrophil count had dropped to 800 and she also was experiencing some neuropathy. The Revlimid remained on hold. As of 10/17/2017 the ANC was still only 700, and I did opt to delay her 2nd cycle of treatment. Her repeat protein electrophoresis from 10/09/2017 did show a decline in her M protein to 2.71 g/dL compared to a pretreatment level of 3.73 g/dL. She eventually continued with cycle 2 on 10/23/2017 with the Velcade dosage reduced at 1.0 mg/m???. The Revlimid dosage was reduced to 10 mg. Despite the reductions, her cycle 3 was delayed again due to neutropenia. Her repeat protein electrophoresis on 11/20/2017 showed essentially stable M protein level at 2.77 g/dL. She continued with cycle 3 on 12/04/2017. Her neutrophil count at that point was back up to 1900. With that cycle she stopped Revlimid after 1 day and her day for Velcade was held due to multiple symptoms including sore throat, swelling in her throat, hoarseness, and cough. She did receive day 8 Velcade, but her day 11 treatment also was held. She eventually did continue with a 4th cycle of treatment on 12/26/2017 and with the 5th cycle on a 01/16/2018, but with both of those she showed up for only 3 of her scheduled Velcade injections. As of cycle 5 her M protein was still basically stable at 2.82 g/dL. Beginning with cycle 6 her treatment was changed to a 28 day cycle with Velcade administered on days 1, 8, and 15, with Revlimid administered on a day schedule, and with dexamethasone administered weekly. With that change her compliance improved. As of 03/05/2018 she began her 7th cycle of treatment. At that point her serum protein electrophoresis had shown a significant decline in the M protein, to 1.41 g/dL. With continued treatment there was further decline in the M protein. As of 05/08/2018 on day 8 of cycle 9 it had decreased to 0.84 g/dL. However, at day 1 of cycle 10 on 05/30/2018 it increased slightly to 1.11 g/dL. At cycle 10 day 22 on 06/19/2018 it had stabilized at 1.09 g/dL. Restaging PET/CT on 06/23/2018 showed the T1 lesion to be weakly FDG positive and unchanged from the previous study in May 2017. Given those findings, I did opt to put her further treatment on hold. Her repeat protein electrophoresis on 07/20/2018 showed an increase in the M protein to 1.4 g/dL. The free light chain assay showed elevated kappa light chain at 83.8 mg/L with lambda light chain 2.9 mg/L and elevated kappa/lambda ratio at 28.90. With those findings, she was advised to continue to second line treatment. She had indicated that she preferred not to be on any type of IV infusion. As such, I recommend a trial of therapy with Revlimid/ixazomib/dexamethasone. She began cycle 1 of Revlimid/ixazomib/dexamethasone on 08/29/2018. Due to her previous toxicities with Revlimid, it was initiated at a reduced dosage of 10 mg daily on a 21/28 day schedule with ixazomib dosed at 4 mg on days 18 and 15 and the dexamethasone dose at 40 mg weekly. She was able to tolerate it with acceptable toxicity, and she continued with cycle 2 on 09/26/2018 and with cycle 3 on 10/25/2018. Her repeat protein electrophoresis in September did show some decline in the M protein, to 1.0 g/dL. It then stabilized, and she continued her same treatment. As of 01/24/2019 the protein electrophoresis showed her quantitative M protein at 1.1 g/dL. The free light chain assay showed kappa light chain elevated at 105.1 mg/L, lambda light chain 7.0 mg/L, and elevated kappa/lambda ratio at 15.01. She continued treatment with Revlimid/ixazomib/dexamethasone. As of 04/22/2019 her protein electrophoresis showed M protein stable at 0.9 g/dL, but her free light chain assay continued to show elevated kappa/lambda ratio at 15.37. Her quantitative immunoglobulin levels showed IgG 1165 mg/dL with IgA low at 10 mg/dL and IgM low at 17 mg/dL. Her CBC showed stable hemoglobin at 12 g, but her ANC was low at 700. As of 05/06/2019 her treatment was put on hold due to persistent neutropenia. Her 24 urine protein electrophoresis showed no monoclonal protein. Her other medical illnesses include hypertension, hyperlipidemia, coronary artery disease, hypothyroidism, GERD, fibromyalgia, degenerative arthritis, and anxiety/depression. Her surgical/procedural history includes coronary angioplasty/stent placement 2015. She has arthroscopic left knee surgery, and she also has had surgery on the right shoulder. She has history of smoking for 25 years, from 1-3 packs of cigarettes daily. She quit smoking in 1989. She has had just occasional alcohol use. She is [employer], and she will not accept blood products. INTERIM HISTORY: In May 2019 she had taken a trip to [place], and while she was there she became very ill and required treatment for pneumonia. She returned here for a follow-up visit in June. Her repeat protein electrophoresis on 07/02/2019 showed increase in the M protein to 2.0 g/dL. Her free light chain assay showed increased kappa light chain to 142 mg/L with lambda light chain 2.9 mg/L, and elevated kappa/lambda ratio at 49.38. Restaging PET/CT on 07/13/2019 showed stable findings in the T1 lesion with FDG activity no greater than that of marrow background, consistent with successfully treated disease. There was no evidence of any new lesions. However, with the significant increase in the M protein and in the kappa free light chain, she was recommended to proceed with third line treatment with daratumumab in combination with carfilzomib and dexamethasone. She underwent placement of Port-A-Cath venous access device in preparation for that treatment. Her baseline echocardiogram showed normal left ventricular function with ejection fraction estimated at 60%. She returned to begin cycle 1 of daratumumab/carfilzomib/dexamethasone on 08/12/2019. The initial infusion of daratumumab was administered in divided doses over 2 days. She tolerated the treatment well. However, her day 8 treatment was complicated by nausea and profuse diaphoresis, which she attributed to the daratumumab. She was able to complete her day 9 carfilzomib treatment. Her day 15/16 treatment was withheld due to a drop in her white blood cell count to 2000 with her ANC at 1000. She did not have fever or other complications. She was given her week 3 daratumumab the following week, but I did opt to split the dosage over 2 days. She tolerated it with no adverse effects. She continued with cycle 2 on 09/11/2019. She is seen for a followup visit. She is at day 15 of her second cycle. She says she is feeling exhausted. She is, however, in the process of moving, and she has been doing a lot of work with that. Her ECOG score is 1. She has good appetite. She says her temperature has been up slightly. She has been having sweating with activity. She complains that she is losing her voice. She does not complain of shortness of breath or cough. She has had to use nitroglycerin spray once since her last visit. She has no GI/ complaints other than her bowel function has not been quite as good. She complains that her back is killing her. She is sore all over. She has been having light headache. She has had some dizziness. She reports having some numbness in her hands. Medications: amLODIPine Besylate 1 Tablet (of 5 mg) Oral daily, Body/Hair/Skin/Nails 2 Capsule Oral daily, Ghrmutbbrn-EDBN-Lasw-Cod 1 (53-939-72-30 mg) Capsule Oral four times a day PRN, Nekdwqntmz-WRLB-Qzfxqscc (50-325-40 mg) Tablet Oral four times a day, Cholecalciferol 2 (1000 Units) Capsule Oral daily, Curcumin 95 1 (500 mg) Capsule Oral daily PRN, Cymbalta 1 (60 mg) Capsule Delayed Release Particles Oral daily, hydroCHLOROthiazide 1 - 2 Tablet (of 12.5 mg) Oral daily PRN, Levothyroxine Sodium 1 (50 mcg) Tablet Oral daily, Lisinopril 1 (25 mg) Tablet Oral daily, LORazepam 0.5 - 1 (1 mg) Tablet Oral q 4 hours PRN, Multivitamin Adult 1 Tablet Oral daily, Nitroglycerin 1 (400 mcg/spray) Aerosol, solution Translingual PRN, OxyCODONE HCl 1 (30 mg) Tablet Oral 5x/d PRN, Pantoprazole Sodium 1 Tablet (of 40 mg) Tablet, enteric coated Oral daily, Plavix 1 (75 mg) Tablet Oral daily, Pravastatin Sodium 1 (40 mg) Tablet Oral daily, Prochlorperazine Maleate 1 (10 mg) Tablet Oral four times a day PRN, QUEtiapine Fumarate 2 Tablet (of 25 mg) Oral at bedtime, Soma 1 (350 mg) Tablet Oral four times a day, Soma 1 (350 mg) Tablet Oral four times a day PRN, Vitamin E 1 Capsule Oral daily Allergies: Codeine Sulfate, LevoFLOXacin, and Vicodin. Review of Systems: Constitutional - She is feeling okay. Her appetite is good and weight is stable. No fever, chills, hot flashes, or night sweats. ECOG score is 1, ENMT - No sinus congestion/drainage. No mouth sores. No sore throat or difficulty swallowing, Hematologic/Lymphatic - She bruises easily, Respiratory - No shortness of breath. No cough. No pleuritic pain or hemoptysis, Cardiovascular - No angina pain. No palpitations, Gastrointestinal - She has had a few episodes of nausea. No vomiting. No heartburn or acid reflux. No diarrhea or constipation. No blood in the stool or black stools, Genitourinary (F) - No dysuria or hematuria. No urinary frequency. No urgency or incontinence, Musculoskeletal - She is having generalized pain, worse in her back and hips, Integumentary - No skin complications, Neurologic - She's been having headaches. She has been having some dizziness. She has some tingling in her hands, Psychiatric - Her anxiety is slight worse related to personal life problems. She is sleeping well. Vital Signs: Performed on September 25, 2019 08:25 Height - 66.00 in Weight - 163.6 lbs BSA - 1.84 sq.m BMI - 26.41 Temperature - 98.1 F (LOW) Pulse - 73 /min Respiration - 16 /min BP - 141/72 mm(hg) (HIGH) O2 Sat - 97 % Pain - 7 Physical Examination: Constitutional - She looks pretty good generally, Eyes - Sclerae nonicteric. Conjunctivae clear, ENMT - No lesions noted in the oral cavity, Hematologic/Lymphatic - No cervical, clavicular, or axillary adenopathy, Respiratory - Lungs are clear with good air movement bilaterally, Cardiovascular - Heart rhythm is regular. There is no murmur, gallop, or rub noted, Abdomen - Soft. Liver and spleen are not enlarged. There is no abdominal mass or ascites noted and there is no inguinal adenopathy, Extremities - No edema. She has pretty extensive bruising on her arms, Neurologic - No focal neurologic deficits noted. Lab/Imaging: Test performed on September 25, 2019 07:30 Sodium 137 mmol/L Potassium 3.8 mmol/L Chloride 99 mmol/L CO2 28 mmol/L Anion Gap 13.8 BUN 7 mg/dL Creatinine 0.7 mg/dL Cr Clearance (Est) 91.1400 mL/min eGFR 83.0 mL/min Glucose 94 mg/dL Calcium 8.6 mg/dL Protein, Total 7.1 g/dL Albumin 4.0 g/dL Globulin 3.1 g/dL Bilirubin, Total 0.4 mg/dL ALT (SGPT) 12 U/L AST (SGOT) 25 U/L Alkaline Phosphatase 80 IU/L WBC 2.8 10 3/uL RBC 2.89 10 6/uL HGB 9.5 g/dL HCT 29.1 % MCV 100.7 fL MCH 32.9 pg MCHC 32.6 g/dL RDW 15.8 % Platelet Count 123 10 3/cmm MPV 10.9 fL Neutrophils 1.6 10 3/uL Lymphocytes 0.8 10 3/uL Monocytes 0.3 10 3/uL Eosinophils 0.1 10 3/uL Basophils 0.0 10 3/uL Neutrophil % 55.8 % Lymphocyte % 29.2 % Monocyte % 12.1 % Eosinophil % 2.5 % Basophils % 0.4 % Impression: 1. Patient with IgG kappa myeloma. Bone marrow aspiration/biopsy on 05/17/2017 showed 32% plasma cells, consistent with myeloma. The FISH panel showed gain of chromosome 1q, deletions of RB 1 and LAMP1, and gain of IG. Her baseline M protein was 2.87 g/dL. She was mildly anemic and she had significantly elevated sedimentation rate. She had normal renal function and negative 24-hour urine protein electrophoresis. Skeletal survey showed no lytic bone involvement. PET/CT and MRI both showed findings suspicious for involvement of the T1 vertebral body. She does not appear to be overtly symptomatic with it. 2. Her bone marrow also showed absent storage iron. Her other medical illnesses include: 3. Hypertension. 4. Hyperlipidemia. 5. Coronary artery disease with angioplasty/stent placement in February 2016. 6. Hypothyroidism. 7. GERD. 8. Degenerative arthritis/degenerative disease of the spine. 9. Fibromyalgia. 10. Anxiety/depression. She has been undergoing treatment with Velcade/Revlimid/dexamethasone, cycle 1 beginning on 09/11/2017. Overall, her treatment was very suboptimal due in part to multiple side effects which included skin eruption and neutropenia, among others. Compliance also had been somewhat of an issue. Beginning with her 6th cycle of treatment, on 02/05/2018, her treatment was changed to a 28 day schedule with Velcade administered at a reduced dosage on days 1, 8, and 15, with Revlimid administered at 10 mg daily on a 21/28 day schedule, and with dexamethasone administered weekly. She began cycle 7 on 03/05/2018. Her serum protein electrophoresis at that point did show a significant decrease in the M protein, to 1.41 g/dL. She then continued treatment at the same dosages, but intermittently she still had moderately severe neutropenia. She had otherwise been tolerating the treatment well. She began her 10th cycle of treatment on 05/30/2018. At that point her M protein had stabilized at just over 1 g/dL. She appeared stable clinically, and restaging PET/CT showed only mild FDG activity in the T1 lesion. There were no other areas of FDG uptake, and there was no significant change compared to the prior study in May 2017. As on 07/20/2018 her repeat protein electrophoresis showed a significant increase in the M protein to 1.4 g/dL, and her free light chain assay showed an increase in the kappa/lambda ratio to28.90. With those findings, she was advised to proceed with second line treatment. She indicated that she preferred not to have any IV medication. As such, on 08/29/2018 she began a trial of therapy with Revlimid/ixazomib/dexamethasone. Due to her previous toxicities, the Revlimid was initiated at a reduced dosage of 10 mg daily on a 21/28 day schedule. As of October 2018, following 3 cycles of treatment, her M protein had stabilized at 1.0 g/dL. She continued her same treatment, and as of 01/24/2019 her M protein and her free light chain had remained stable. Her clinical status at that time also appeared stable, and she continued treatment with Revlimid, ixazomib, and dexamethasone at the same dosages. As of 04/22/2019 her protein electrophoresis showed M protein stable at 0.9 g/dL, but her free light chain assay continued to show elevated kappa/lambda ratio at 15.37. Her quantitative immunoglobulin levels showed IgG 1165 mg/dL with IgA low at 10 mg/dL and IgM low at 17 mg/dL. Her CBC showed stable hemoglobin at 12 g, but her ANC was low at 700. As of 05/06/2019 her treatment was put on hold due to persistent neutropenia. Her 24 hour urine protein electrophoresis showed no monoclonal protein. As of her follow-up visit in June 2019 there was evidence of disease progression with significant increase in her M protein and and her kappa free light chain. Her restaging PET/CT showed stable findings at the T1 vertebral body lesion and no evidence of any new lesions. With those findings, she began third line treatment with daratumumab/carfilzomib/dexamethasone on 08/12/2019. She has now completed 1 cycle of treatment. She tolerated her day 1/day 2 treatments very well. She developed mulitple side effects following her day 8 treatment, which she attibuted to the daratumumab. She was able to complete her day 9 carfilzomib treatment. Her day 15/16 treatment was withheld due to neutropenia, ANC 1000. She completed her week 3 daratumumab the following week, but with the dosage split over 2 days. She tolerated it without adverse effects. On 09/11/2019 continued with cycle 2 of daratumumab/carfilzomib/dexamethasone with the carfilzomib administered at a reduced dosage. She is currently at day 15. She is more fatigued and she also has having more back pain, but that appears likely to be activity related. She otherwise appears to be tolerating the treatment well. Plan: She will continue with her cycle 2-day 15 and day 16 carfilzomib. The dosage will remain the same. She will be given her week 6 daratumumab, and it will again be given in a split dosage. She returns in 1 week for her week 7 daratumumab infusion. She is willing to try having the full dosage administered in 1 setting. She will be scheduled for a follow-up visit in 2 weeks. Signed By: Sean Sanchez M.D. <<Signature on File>>
== END 2019-09-25 07:29 | disposition home or self-care (01) ==
LOC: ONCMED 07:28
PROVIDERS: Family Provider Internal Medicine; PCP Internal Medicine; Visit Provider Internal Medicine Medical Oncology
DX: Z51.12 Encounter for antineoplastic immunotherapy (principal); Z51.11 Encounter for antineoplastic chemotherapy; C90.00 Multiple myeloma not having achieved remission; D70.1 Agranulocytosis secondary to cancer chemotherapy; I10 Essential (primary) hypertension; E78.5 Hyperlipidemia, unspecified; I25.10 Atherosclerotic heart disease of native coronary artery without angina pectoris; E03.9 Hypothyroidism, unspecified; K21.9 Gastro-esophageal reflux disease without esophagitis; M47.9 Spondylosis, unspecified; M79.7 Fibromyalgia; F41.8 Other specified anxiety disorders; Z95.5 Presence of coronary angioplasty implant and graft; Z79.899 Other long term (current) drug therapy
CPT/HCPCS: 80053; 85025; 96367; 96413; 96415; 96417; 99214; J1200; J2405; J7040; J9047; J9145

== ENCOUNTER 2019-09-26 08:25 | Outpatient (CLI) | payer MEDICARE, SELFPAY ==
[2019-09-26] MEDS: sodium chloride 0.9% 500 ML 75 ML IV (08:45)
[2019-09-26] MEDS: palonosetron 0.25 mg/5 mL SDV IV (08:59)
== END 2019-09-26 08:26 | disposition home or self-care (01) ==
LOC: ONCMED 08:25
PROVIDERS: PCP Internal Medicine; Visit Provider Internal Medicine Medical Oncology
DX: Z51.12 Encounter for antineoplastic immunotherapy (principal); C90.00 Multiple myeloma not having achieved remission; D47.2 Monoclonal gammopathy; D70.1 Agranulocytosis secondary to cancer chemotherapy
CPT/HCPCS: 96361; 96367; 96375; 96413; 96415; 96417; J1200; J2469; J7040; J9047; J9145

== ENCOUNTER 2019-10-02 08:45 | Outpatient (CLI) | payer MEDICARE, SELFPAY ==
[2019-10-02 09:36] LABS: Basophils % 0.3 %; Eosinophils % 0.6 %; Hematocrit 32.7 % (37.0-47.0); Hemoglobin 10.5 g/dL (11.5-15.3); Lymphocytes # 0.7 10^3/uL (0.8-4.8); Lymphocytes % 21.3 %; Mean Corpuscular HGB Conc 32.1 g/dL (30.0-36.0); Mean Corpuscular Hemoglobin 32.6 pg (28.0-34.0); Mean Corpuscular Volume 101.6 fL (81-99); Mean Platelet Volume 11.1 fL (7.4-10.4); Monocytes # 0.3 10^3/uL (0.2-0.9); Monocytes % 9.6 %; Neutrophils # 2.2 10^3/uL (1.8-7.7); Neutrophils % 67.9 %; Nucleated Red Blood Cells % 0 %; Platelet Count 159 10^3/cmm (130-400); Red Blood Count 3.22 10^6/uL (4.1-5.3); Red Cell Distribution Width 15.2 % (12.1-15.1); White Blood Count 3.2 10^3/uL (4.0-10.0)
[2019-10-02 09:40] LABS: Alanine Aminotransferase 13 U/L (0-33); Albumin Level 4.1 g/dL (3.5-5.2); Alkaline Phosphatase 88 IU/L (35-105); Anion Gap 14.1 (5-19); Aspartate Amino Transferase 20 U/L (0-32); Blood Urea Nitrogen 7 mg/dL (8-23); Calcium 9.7 mg/dL (8.5-10.5); Carbon Dioxide 23 mmol/L (22-29); Chloride 101 mmol/L (98-107); Globulin 3.2 g/dL (1.3-4.6); Glucose 101 mg/dL (65-115); Osmolality Calculated 274 mOsm/kg (285-295); Potassium 4.1 mmol/L (3.5-5.1); Sodium 134 mmol/L (136-145); Total Bilirubin 0.4 mg/dL (0.15-1.2); Total Protein 7.3 g/dL (6.6-8.7)
[2019-10-02] MEDS: acetaminophen 325 mg Tablet 650 MG PO (10:37)
[2019-10-02] MEDS: sodium chloride 0.9% 250 ML 75 ML IV (10:37)
[2019-10-02 11:03] LABS: Erythrocyte Sedimentation Rate 43 mm/hr (0-15)
[2019-10-02 11:53] LABS: Immunoglobulin IGA 50 mg/dL (70-400); Immunoglobulin IGG 1437 mg/dL (700-1600); Immunoglobulin IGM 25 mg/dL (40-230)
[2019-10-03 08:11] LABS: PROTEIN, TOTAL 6.7 g/dL (6.1-8.1)
[2019-10-03 14:40] LABS: ABNORMAL PROTEIN BAND 1 1.1 g/dL (NONE DETECTED); ABNORMAL PROTEIN BAND 2 0.1 g/dL (NONE DETECTED); ALBUMIN 3.8 g/dL (3.8-4.8); ALPHA 1 GLOBULIN 0.4 g/dL (0.2-0.3); ALPHA 2 GLOBULIN 0.6 g/dL (0.5-0.9); BETA 1 GLOBULIN 0.4 g/dL (0.4-0.6); BETA 2 GLOBULIN 0.2 g/dL (0.2-0.5); GAMMA GLOBULIN 1.2 g/dL (0.8-1.7)
== END 2019-10-02 08:46 | disposition home or self-care (01) ==
LOC: ONCMED 08:49
PROVIDERS: PCP Internal Medicine; Visit Provider Internal Medicine Medical Oncology
DX: Z51.12 Encounter for antineoplastic immunotherapy (principal); C90.00 Multiple myeloma not having achieved remission; D47.2 Monoclonal gammopathy; D70.1 Agranulocytosis secondary to cancer chemotherapy; T45.1X5A Adverse effect of antineoplastic and immunosuppressive drugs, initial encounter; F41.8 Other specified anxiety disorders; I25.10 Atherosclerotic heart disease of native coronary artery without angina pectoris; M79.7 Fibromyalgia; K21.9 Gastro-esophageal reflux disease without esophagitis; I10 Essential (primary) hypertension; E03.9 Hypothyroidism, unspecified
CPT/HCPCS: 80053; 82784; 84155; 84165; 85025; 85651; 96367; 96413; 96415; J1200; J7040; J7050; J9145

== ENCOUNTER 2019-10-03 09:22 | Outpatient (CLI) | payer MEDICARE, SELFPAY ==
[2019-10-03] MEDS: acetaminophen 325 mg Tablet 650 MG PO (09:40)
[2019-10-03] MEDS: sodium chloride 0.9% 250 ML 75 ML IV (09:58)
[2019-10-03] MEDS: palonosetron 0.25 mg/5 mL SDV IV (09:58)
[2019-10-09 08:49] LABS: Basophils % 0.3 %; Eosinophils % 1.4 %; Hematocrit 33.1 % (37.0-47.0); Hemoglobin 10.5 g/dL (11.5-15.3); Lymphocytes % 33.1 %; Mean Corpuscular HGB Conc 31.7 g/dL (30.0-36.0); Mean Corpuscular Hemoglobin 32.3 pg (28.0-34.0); Mean Corpuscular Volume 101.8 fL (81-99); Mean Platelet Volume 9.7 fL (7.4-10.4); Monocytes # 0.2 10^3/uL (0.2-0.9); Monocytes % 7.6 %; Neutrophils # 1.7 10^3/uL (1.8-7.7); Neutrophils % 57.3 %; Nucleated Red Blood Cells % 0 %; Platelet Count 189 10^3/cmm (130-400); Red Blood Count 3.25 10^6/uL (4.1-5.3); White Blood Count 2.9 10^3/uL (4.0-10.0)
[2019-10-09 09:09] LABS: Alanine Aminotransferase 12 U/L (0-33); Albumin Level 4.3 g/dL (3.5-5.2); Alkaline Phosphatase 95 IU/L (35-105); Anion Gap 15.7 (5-19); Aspartate Amino Transferase 17 U/L (0-32); Blood Urea Nitrogen 8 mg/dL (8-23); Calcium 8.5 mg/dL (8.5-10.5); Carbon Dioxide 25 mmol/L (22-29); Chloride 104 mmol/L (98-107); Globulin 2.5 g/dL (1.3-4.6); Glucose 123 mg/dL (65-115); Osmolality Calculated 289 mOsm/kg (285-295); Potassium 3.7 mmol/L (3.5-5.1); Sodium 141 mmol/L (136-145); Total Bilirubin 0.3 mg/dL (0.15-1.2); Total Protein 6.8 g/dL (6.6-8.7)
== END 2019-10-03 09:23 | disposition home or self-care (01) ==
LOC: ONCMED 09:25
PROVIDERS: PCP Internal Medicine; Visit Provider Internal Medicine Medical Oncology
DX: Z51.12 Encounter for antineoplastic immunotherapy (principal); C90.00 Multiple myeloma not having achieved remission; D47.2 Monoclonal gammopathy; D70.1 Agranulocytosis secondary to cancer chemotherapy; T45.1X5A Adverse effect of antineoplastic and immunosuppressive drugs, initial encounter; F41.8 Other specified anxiety disorders; I25.10 Atherosclerotic heart disease of native coronary artery without angina pectoris; M79.7 Fibromyalgia; K21.9 Gastro-esophageal reflux disease without esophagitis; I10 Essential (primary) hypertension; E03.9 Hypothyroidism, unspecified
CPT/HCPCS: 96367; 96375; 96413; 96415; J1200; J2469; J7040; J7050; J9145

== ENCOUNTER 2019-10-09 08:13 | Outpatient (CLI) | payer MEDICARE, SELFPAY ==
[2019-10-09] MEDS: dexamethasone 4 mg Tablet 20 MG PO (10:49)
[2019-10-09] MEDS: acetaminophen 325 mg Tablet 650 MG PO (10:50)
[2019-10-09] MEDS: sodium chloride 0.9% 500 ML 75 ML IV (10:50)
--- NOTE | 2019-10-14 15:09 | ONC FU_ITS ---
[facility] Patient Note Patient: Karely Armenta Unit #: [id number]: 1950 Dictated By: Say CastilloDate of Visit: October 09, 2019 Onc MED Follow-Up/Prog Note Chief Complaint: Myeloma. History of Present Illness: Ms Armenta is a 69 year-old woman with IgG kappa myeloma. She was found to be moderately anemic in December 2016 when she was admitted to the hospital with pneumonia. She also reported having had an illness the preceding summer, in October or November, which may have been tick fever, but that was never confirmed. Her follow-up laboratory studies with Dr. Garcia on 05/03/2017 included CBC showing hemoglobin 11.9 g with white blood cell count 5100 and platelet count 155,000. Her sedimentation rate was significantly elevated at 94 mm/hour. The chem profile showed normal renal function with BUN 13 and creatinine 0.96 mg/dL. Calcium was normal at 9.0 mg/dL. The total protein was elevated at 9.0 g/dL with albumin 4.0 g/dL and calculated serum globulin elevated at 5.0 g/dL. Protein electrophoresis showed a monoclonal protein quantitating at 2.5 g/dL. Immunofixation showed an IgG kappa paraprotein measuring 2.87 g/dL. Hepatitis screen was nonreactive to hepatitis C, hepatitis Bs antigen, and hepatitis B core total Ab referral. The hepatitis B surface antibody was < 3.10. LDH was normal at 149 U/L. The beta-2 microglobulin was slightly elevated at 0.420 mg/dL. Dr Sanchez had seen her initially on 05/11/2017. Repeat protein electrophoresis with immunofixation prior to that visit, from 05/09/2017, showed IgG kappa monoclonal protein quantitating at 2.87 g/dL. The kappa light chain was elevated at 177.96 mg/L with lambda light chain 1.73 mg/L and kappa/lambda ratio elevated at 102. On her further evaluation there was no monoclonal protein detected in a 24-hour urine specimen. Skeletal survey on 05/11/2017 showed cervical and lumbar spondylosis and bilateral hip joint osteoarthritic changes. There was no radiographic evidence of multiple myeloma. She underwent bone marrow aspiration/biopsy on 05/17/2017. The cellularity was estimated at 70% with 32% plasma cells. Iron stores were noted to be absent. The FISH panel for myeloma showed gain of chromosome 1q, deletions of RB 1 and LAMP1, and gain of IG. The standard chromosome analysis was normal. Overall, the findings were consistent with plasma cell neoplasm/myeloma. Staging PET/CT on 06/03/2017 showed a single FDG avid osteolytic site in the T1 vertebral body which was felt to possibly represent multiple myeloma. She then had further evaluation with MRI of the spine on 07/12/2017. There were significant degenerative changes in the cervical spine which included moderate central canal stenosis at C4-C5, C5-C6, and C7 as well as bilateral nerve root encroachment at C5, C6, and C7. There were also degenerative changes in the lumbar spine with interval STIR signal abnormality and enhancement of T10-L5 spinous processes suggesting possible myelomatous changes. The thoracic spine showed subtle diffuse signal and enhancement abnormality involving the T1 vertebral body. In correlation with the PET/CT findings, this was felt to be suspicious for neoplastic process, including multiple myeloma. There were no actual lytic lesions identified. She had further laboratory evaluation on 07/26/2017. Her CBC at that point showed hemoglobin down slightly to 10.1 g with white blood cell count 3700 and platelet count 122,000. Chem profile showed borderline renal function with BUN 12 and creatinine 1.1 mg/dL and calculated GFR 49 mm/hour. Repeat protein electrophoresis showed M protein increased to 3.22 g/dL compared to 2.87 g/dL in April. Her quantitative immunoglobulin levels showed elevated IgG at 3800 mg/dL and IgA low at less than 8.00 and IgM low at 5.50 mg/dL. Her serum iron studies showed normal transferrin saturation at 30.9%, but ferritin was low at 14.4 ng/mL. B12 level was in low-normal range at 288 pg/mL. She is seen for a follow-up visit on 08/14/2017. At that point she did agree to begin treatment with Velcade/Revlimid/dexamethasone. She began her cycle 1 of Velcade/Revlimid/dexamethasone on 09/11/2017. At that time she also began prophylaxis with Bactrim and acyclovir. When she returned for her day 4 Velcade injection, she had developed a significant skin eruption, and she was advised to stop both the Revlimid and the Bactrim. At day 8 she had a reduction in the Velcade dosage to 1.0 mg/m???, as her neutrophil count had dropped to 800 and she also was experiencing some neuropathy. The Revlimid remained on hold. As of 10/17/2017 the ANC was still only 700, and Dr Sanchez did opt to delay her 2nd cycle of treatment. Her repeat protein electrophoresis from 10/09/2017 did show a decline in her M protein to 2.71 g/dL compared to a pretreatment level of 3.73 g/dL. She eventually continued with cycle 2 on 10/23/2017 with the Velcade dosage reduced at 1.0 mg/m???. The Revlimid dosage was reduced to 10 mg. Despite the reductions, her cycle 3 was delayed again due to neutropenia. Her repeat protein electrophoresis on 11/20/2017 showed essentially stable M protein level at 2.77 g/dL. She continued with cycle 3 on 12/04/2017. Her neutrophil count at that point was back up to 1900. With that cycle she stopped Revlimid after 1 day and her day for Velcade was held due to multiple symptoms including sore throat, swelling in her throat, hoarseness, and cough. She did receive day 8 Velcade, but her day 11 treatment also was held. She eventually did continue with a 4th cycle of treatment on 12/26/2017 and with the 5th cycle on a 01/16/2018, but with both of those she showed up for only 3 of her scheduled Velcade injections. As of cycle 5 her M protein was still basically stable at 2.82 g/dL. Beginning with cycle 6 her treatment was changed to a 28 day cycle with Velcade administered on days 1, 8, and 15, with Revlimid administered on a day schedule, and with dexamethasone administered weekly. With that change her compliance improved. As of 03/05/2018 she began her 7th cycle of treatment. At that point her serum protein electrophoresis had shown a significant decline in the M protein, to 1.41 g/dL. With continued treatment there was further decline in the M protein. As of 05/08/2018 on day 8 of cycle 9 it had decreased to 0.84 g/dL. However, at day 1 of cycle 10 on 05/30/2018 it increased slightly to 1.11 g/dL. At cycle 10 day 22 on 06/19/2018 it had stabilized at 1.09 g/dL. Restaging PET/CT on 06/23/2018 showed the T1 lesion to be weakly FDG positive and unchanged from the previous study in May 2017. Given those findings, Dr Sanchez did opt to put her further treatment on hold. Her repeat protein electrophoresis on 07/20/2018 showed an increase in the M protein to 1.4 g/dL. The free light chain assay showed elevated kappa light chain at 83.8 mg/L with lambda light chain 2.9 mg/L and elevated kappa/lambda ratio at 28.90. With those findings, she was advised to continue to second line treatment. She had indicated that she preferred not to be on any type of IV infusion. As such, Dr Sanchez recommend a trial of therapy with Revlimid/ixazomib/dexamethasone. She began cycle 1 of Revlimid/ixazomib/dexamethasone on 08/29/2018. Due to her previous toxicities with Revlimid, it was initiated at a reduced dosage of 10 mg daily on a 21/28 day schedule with ixazomib dosed at 4 mg on days 18 and 15 and the dexamethasone dose at 40 mg weekly. She was able to tolerate it with acceptable toxicity, and she continued with cycle 2 on 09/26/2018 and with cycle 3 on 10/25/2018. Her repeat protein electrophoresis in September did show some decline in the M protein, to 1.0 g/dL. It then stabilized, and she continued her same treatment. As of 01/24/2019 the protein electrophoresis showed her quantitative M protein at 1.1 g/dL. The free light chain assay showed kappa light chain elevated at 105.1 mg/L, lambda light chain 7.0 mg/L, and elevated kappa/lambda ratio at 15.01. She continued treatment with Revlimid/ixazomib/dexamethasone. As of 04/22/2019 her protein electrophoresis showed M protein stable at 0.9 g/dL, but her free light chain assay continued to show elevated kappa/lambda ratio at 15.37. Her quantitative immunoglobulin levels showed IgG 1165 mg/dL with IgA low at 10 mg/dL and IgM low at 17 mg/dL. Her CBC showed stable hemoglobin at 12 g, but her ANC was low at 700. As of 05/06/2019 her treatment was put on hold due to persistent neutropenia. Her 24 urine protein electrophoresis showed no monoclonal protein. Her other medical illnesses include hypertension, hyperlipidemia, coronary artery disease, hypothyroidism, GERD, fibromyalgia, degenerative arthritis, and anxiety/depression. Her surgical/procedural history includes coronary angioplasty/stent placement 2015. She has arthroscopic left knee surgery, and she also has had surgery on the right shoulder. She has history of smoking for 25 years, from 1-3 packs of cigarettes daily. She quit smoking in 1989. She has had just occasional alcohol use. She is Druze, and she will not accept blood products. INTERIM HISTORY: In May 2019, she had taken a trip to [place], and while she was there she became very ill and required treatment for pneumonia. She returned here for a follow-up visit in June. Her repeat protein electrophoresis on 07/02/2019 showed increase in the M protein to 2.0 g/dL. Her free light chain assay showed increased kappa light chain to 142 mg/L with lambda light chain 2.9 mg/L, and elevated kappa/lambda ratio at 49.38. Restaging PET/CT on 07/13/2019 showed stable findings in the T1 lesion with FDG activity no greater than that of marrow background, consistent with successfully treated disease. There was no evidence of any new lesions. However, with the significant increase in the M protein and in the kappa free light chain, she was recommended to proceed with third line treatment with daratumumab in combination with carfilzomib and dexamethasone. She underwent placement of Port-A-Cath venous access device in preparation for that treatment. Her baseline echocardiogram showed normal left ventricular function with ejection fraction estimated at 60%. She returned to begin cycle 1 of daratumumab/carfilzomib/dexamethasone on 08/12/2019. The initial infusion of daratumumab was administered in divided doses over 2 days. She tolerated the treatment well. However, her day 8 treatment was complicated by nausea and profuse diaphoresis, which she attributed to the daratumumab. She was able to complete her day 9 carfilzomib treatment. Her day 15/16 treatment was withheld due to a drop in her white blood cell count to 2000 with her ANC at 1000. She did not have fever or other complications. She was given her week 3 daratumumab the following week, but we did opt to split the dosage over 2 days. She tolerated it with no adverse effects. She continued with cycle 2 on 09/11/2019. She tolerated it well. Ms Armenta is here today for followup. She is due for cycle 3 of daratumumab and carfilzomib. She is tolerating that relatively well. She states she has sold her house and has been trying 10 move things out of a 5000 square foot home into a travel trailer . She has been stressed with what to do with all of her belongings. She states that she is selling her home to prepare to move paper machine backtender to her parents in [place]. She does not have a plan timeline for this that I am aware of. She states that she has been very busy with moving and cleaning things out. She states she is tired but attributes that to the extracurricular activity she is doing with all the moving. She has had some bruising on her arms but states that is from doing with all the boxes and furniture that she has been moving. She denies any fever or chills. She is had no mouth sores or sore throat difficulty swallowing. She denies any diarrhea or constipation. She states she is eating good but is trying to watch her weight some. She denies any changes in neuropathy. She is had a little very mild neuropathy left from prior treatments but states it is no worse than what it has been she really does not notice that it is there. She denies any urinary problems. She denies any lower extremity edema. Her ECOG is 0. Past Medical History: Anxiety/depression Chronic back pain Chronic migraine Coronary artery disease Fibromyalgia Gastroesophageal reflux disease Hypertension Hypothyroidism Past Surgical History: Arthroscopic left knee surgery Left breast biopsy for benign disease Removal of cyst from the right breast Right shoulder surgery Coronary angioplasty/stent placement in 2016 Colonoscopy in 2011 Allergies: Codeine Sulfate, LevoFLOXacin, and Vicodin. Medications: amLODIPine Besylate 1 Tablet (of 5 mg) Oral daily Body/Hair/Skin/Nails 2 Capsule Oral daily Mmblzelith-VCTS-Wddc-Cod 1 ([id number] mg) Capsule Oral four times a day PRN Cholecalciferol 2 (1000 Units) Capsule Oral daily Curcumin 95 1 (500 mg) Capsule Oral daily PRN Cymbalta 1 (60 mg) Capsule Delayed Release Particles Oral daily Furosemide 1 Tablet (of 20 mg) Oral daily PRN hydroCHLOROthiazide 1 - 2 Tablet (of 12.5 mg) Oral daily PRN Levothyroxine Sodium 1 (50 mcg) Tablet Oral daily Lisinopril 1 (25 mg) Tablet Oral daily LORazepam 0.5 - 1 (1 mg) Tablet Oral q 4 hours PRN Multivitamin Adult 1 Tablet Oral daily Nitroglycerin 1 (400 mcg/spray) Aerosol, solution Translingual PRN OxyCODONE HCl 1 (30 mg) Tablet Oral 5x/d PRN Pantoprazole Sodium 1 Tablet (of 40 mg) Tablet, enteric coated Oral daily Plavix 1 (75 mg) Tablet Oral daily Potassium Chloride ER 1 Tablet (of 10 meq) Tablet, controlled release Oral daily PRN Pravastatin Sodium 1 (40 mg) Tablet Oral daily Prochlorperazine Maleate 1 (10 mg) Tablet Oral four times a day PRN QUEtiapine Fumarate 2 Tablet (of 25 mg) Oral at bedtime Soma 1 (350 mg) Tablet Oral four times a day Soma 1 (350 mg) Tablet Oral four times a day PRN Vitamin E 1 Capsule Oral daily Family History: Ms. Armenta's mother is alive: heart disease. Ms. Jacobss father is alive. Mother still living at age 87 and she is in relatively good health. She doesn't know about her biologic father. A brother is quadriplegic from a motor vehicle accident. A sister has bipolar disease. A maternal aunt had bladder cancer and another maternal aunt had ovarian cancer. Social History: Ms. Armenta is and she is retired. Ms. Armenta quit smoking 27 years ago but had smoked for 12 years. She drinks occasionally. Ms. Armenta reports the following support systems: lives alone, supportive family/friends willing to assist with needs, and adequate transportation available for expected visits. Her diet consists of regular meals. She indicates her activity level as: occasional exercise. She has a history of smoking for 25 years, in the range of 1-3 packs of cigarettes daily. She quit smoking in 1989. She has had just occasional alcohol use. Review Of Symptoms: Constitutional Denies fevers, chills, night sweats. She has had fatigue, but has been moving and working hard . Allergic/Immunologic No reactions. Eyes Denies significant visual changes. No diplopia. No amaurosis. ENMT Denies changes in hearing, mouth sores, difficulty or changes in swallowing ability, and/or sinus drainage. Hematologic/Lymphatic Denies easy bleeding. The patient denies any tender or palpable lymph nodes. She has had bruising from moving so many big boxes . Respiratory Denies dyspnea on exertion, chest pain, or hemoptysis. Denies orthopnea. Cardiovascular Denies anginal chest pain, palpitations or orthopnea. Gastrointestinal Denies nausea, vomiting, diarrhea, GI bleeding, or constipation. Denies change in bowel habits and/or stool color, no heartburn or early satiety. Genitourinary (F) No hematuria, hesitancy, incontinence, vaginal bleeding, discharge or other problems with urination. Musculoskeletal Denies joint swelling or redness. No decreased range of motion. States she is having joint pain off and on, but chronic and stable. Integumentary Denies chronic rashes, inflammation, ulcerations or skin changes. Neurologic Denies headache, blurred vision, and no areas of focal weakness or numbness. Normal gait. No sensory problems. Psychiatric Denies insomnia, depression, danelle or mood swings. Stress related to family-controlled at present. Vital Signs: Performed on October 09, 2019 14:00 Height - 66.00 in Temperature - 97.7 F (LOW) Pulse - 68 /min Respiration - 18 /min BP - 128/64 mm(hg) O2 Sat - 97 % Pain - 0 Fatigue - 0 Performed on October 09, 2019 09:57 Height - 66.00 in Weight - 153.4 lbs (LOW) BSA - 1.79 sq.m BMI - 24.76 Temperature - 97.9 F (LOW) Pulse - 62 /min Respiration - 18 /min BP - 162/68 mm(hg) (HIGH) O2 Sat - 100 % Pain - 6,0 - Fully active, able to carry on all predisease activities without restrictions. (ECOG) Physical Examination: Constitutional Alert, oriented, no acute distress. Skin pink, warm and dry. Head Normocephalic; atraumatic. Eyes Conjunctivae and sclerae are clear and without icterus. Pupils are reactive and equal. ENMT Sinuses are nontender. No oral exudates, ulcers, masses, thrush or mucositis. Tongue normal. Neck Supple without masses or thyromegaly. No jugular venous distension. Hematologic/Lymphatic No petechiae or purpura. Tender and palpable lymph nodes in the cervical bilateral. No adenopathy in the supraclavicular, or axillary area. Respiratory Lungs are diminished but clear to auscultation without rhonchi or wheezing. Cardiovascular Regular rate and rhythm of heart without murmurs,clicks, gallops or rubs. Breasts Abdomen Non-tender, non-distended, no masses, ascites. Good bowel sounds noted in all quads. No guarding or rebound tenderness. No pulsatile masses. Back/Spine Non-tender to palpation. Extremities No visible deformities, no cyanosis, clubbing or edema. Pulses 4+ and equal bilaterally. Musculoskeletal No tenderness or swelling, normal range of motion without obvious weakness. Integumentary Skin appears inflamed but no actual lesions or papules. Obvious areas of scratching. Neurologic No sensory or motor deficits, normal cerebellar function, normal gait. Psychiatric Alert and oriented times three. Coherent speech. Verbalizes understanding of our discussions today. Laboratory:Test performed on October 09, 2019 08:15 Sodium 141 mmol/L Potassium 3.7 mmol/L Chloride 104 mmol/L CO2 25 mmol/L Anion Gap 15.7 BUN 8 mg/dL Creatinine 0.7 mg/dL Cr Clearance (Est) 91.1400 mL/min eGFR 83.0 mL/min Glucose 123 mg/dL Calcium 8.5 mg/dL Protein, Total 6.8 g/dL Albumin 4.3 g/dL Globulin 2.5 g/dL Bilirubin, Total 0.3 mg/dL ALT (SGPT) 12 U/L AST (SGOT) 17 U/L Alkaline Phosphatase 95 IU/L WBC 2.9 10 3/uL RBC 3.25 10 6/uL HGB 10.5 g/dL HCT 33.1 % MCV 101.8 fL MCH 32.3 pg MCHC 31.7 g/dL RDW 14.0 % Platelet Count 189 10 3/cmm MPV 9.7 fL Neutrophils 1.7 10 3/uL Lymphocytes 1.0 10 3/uL Monocytes 0.2 10 3/uL Eosinophils 0.0 10 3/uL Basophils 0.0 10 3/uL Neutrophil % 57.3 % Lymphocyte % 33.1 % Monocyte % 7.6 % Eosinophil % 1.4 % Basophils % 0.3 % Test performed on October 02, 2019 08:45 ESR (Sed Rate) 43 mm/hr IgG 1437 mg/dL IgA 50 mg/dL IgM 25 mg/dL Impression: 1. Patient with IgG kappa myeloma. Bone marrow aspiration/biopsy on 05/17/2017 showed 32% plasma cells, consistent with myeloma. The FISH panel showed gain of chromosome 1q, deletions of RB 1 and LAMP1, and gain of IG. Her baseline M protein was 2.87 g/dL. She was mildly anemic and she had significantly elevated sedimentation rate. She had normal renal function and negative 24-hour urine protein electrophoresis. Skeletal survey showed no lytic bone involvement. PET/CT and MRI both showed findings suspicious for involvement of the T1 vertebral body. She does not appear to be overtly symptomatic with it. 2. Her bone marrow also showed absent storage iron. Her other medical illnesses include: 3. Hypertension. 4. Hyperlipidemia. 5. Coronary artery disease with angioplasty/stent placement in February 2016. 6. Hypothyroidism. 7. GERD. 8. Degenerative arthritis/degenerative disease of the spine. 9. Fibromyalgia. 10. Anxiety/depression. She has been undergoing treatment with Velcade/Revlimid/dexamethasone, cycle 1 beginning on 09/11/2017. Overall, her treatment was very suboptimal due in part to multiple side effects which included skin eruption and neutropenia, among others. Compliance also had been somewhat of an issue. Beginning with her 6th cycle of treatment, on 02/05/2018, her treatment was changed to a 28 day schedule with Velcade administered at a reduced dosage on days 1, 8, and 15, with Revlimid administered at 10 mg daily on a 21/28 day schedule, and with dexamethasone administered weekly. She began cycle 7 on 03/05/2018. Her serum protein electrophoresis at that point did show a significant decrease in the M protein, to 1.41 g/dL. She then continued treatment at the same dosages, but intermittently she still had moderately severe neutropenia. She had otherwise been tolerating the treatment well. She began her 10th cycle of treatment on 05/30/2018. At that point her M protein had stabilized at just over 1 g/dL. She appeared stable clinically, and restaging PET/CT showed only mild FDG activity in the T1 lesion. There were no other areas of FDG uptake, and there was no significant change compared to the prior study in May 2017. As on 07/20/2018 her repeat protein electrophoresis showed a significant increase in the M protein to 1.4 g/dL, and her free light chain assay showed an increase in the kappa/lambda ratio to28.90. With those findings, she was advised to proceed with second line treatment. She indicated that she preferred not to have any IV medication. As such, on 08/29/2018 she began a trial of therapy with Revlimid/ixazomib/dexamethasone. Due to her previous toxicities, the Revlimid was initiated at a reduced dosage of 10 mg daily on a 21/28 day schedule. As of October 2018, following 3 cycles of treatment, her M protein had stabilized at 1.0 g/dL. She continued her same treatment, and as of 01/24/2019 her M protein and her free light chain had remained stable. Her clinical status at that time also appeared stable, and she continued treatment with Revlimid, ixazomib, and dexamethasone at the same dosages. As of 04/22/2019 her protein electrophoresis showed M protein stable at 0.9 g/dL, but her free light chain assay continued to show elevated kappa/lambda ratio at 15.37. Her quantitative immunoglobulin levels showed IgG 1165 mg/dL with IgA low at 10 mg/dL and IgM low at 17 mg/dL. Her CBC showed stable hemoglobin at 12 g, but her ANC was low at 700. As of 05/06/2019 her treatment was put on hold due to persistent neutropenia. Her 24 hour urine protein electrophoresis showed no monoclonal protein. As of her follow-up visit in June 2019 there was evidence of disease progression with significant increase in her M protein and and her kappa free light chain. Her restaging PET/CT showed stable findings at the T1 vertebral body lesion and no evidence of any new lesions. With those findings, she began third line treatment with daratumumab/carfilzomib/dexamethasone on 08/12/2019. She has now completed 1 cycle of treatment. She tolerated her day 1/day 2 treatments very well. She developed mulitple side effects following her day 8 treatment, which she attibuted to the daratumumab. She was able to complete her day 9 carfilzomib treatment. Her day 15/16 treatment was withheld due to neutropenia, ANC 1000. She completed her week 3 daratumumab the following week, but with the dosage split over 2 days. She tolerated it without adverse effects. On 09/11/2019 continued with cycle 2 of daratumumab/carfilzomib/dexamethasone with the carfilzomib administered at a reduced dosage. She is currently at cycle 3 day 1. She is more fatigued and she also has having intermittent back pain, but that appears likely to be activity related. She otherwise appears to be tolerating the treatment well. Plan: 1. Proceed with cycle 3-day 1 carfilzomib and daratumumab. This is week 7 for the daratumumab. She wants to go ahead and do that day 1 and 2 dosing on the daratumumab as she will be here for the carfilzomib anyway. She could have the daratumumab on 1 day if she wants but has opted to go for split dosing over 2 days on the last cycle. 2. CBC CMP from today were reviewed in detail and discussed with Ms. Armenta and a copy was given to her. WBC 2.9, hemoglobin 10.5, platelets 10 89,000 ANC is 1700 LFTs are normal creatinine is 0.7. 3. She will continue her current pain medication as she states this is working well for her. 4. We will plan to see her back in 1 week for cycle 3-day 8 and 9. She will need a CBC and repeat CMP at that time as well. 5. Mrs. Armenta was instructed to contact us in interim should questions or problems arise. Signed By: Say Castillo-, AOP Sean Sanchez MD <<Signature on File>>
== END 2019-10-09 08:14 | disposition home or self-care (01) ==
LOC: ONCMED 08:15
PROVIDERS: PCP Internal Medicine; Visit Provider Nurse Practitioner
DX: Z51.12 Encounter for antineoplastic immunotherapy (principal); C90.00 Multiple myeloma not having achieved remission; D47.2 Monoclonal gammopathy; D70.1 Agranulocytosis secondary to cancer chemotherapy; T45.1X5A Adverse effect of antineoplastic and immunosuppressive drugs, initial encounter
CPT/HCPCS: 36415; 80053; 85025; 96367; 96413; 96415; 99214; J1200; J2405; J7040; J8540; J9047; J9145

== ENCOUNTER 2019-10-11 08:57 | Outpatient (CLI) | payer MEDICARE, SELFPAY ==
[2019-10-11] MEDS: acetaminophen 325 mg Tablet 650 MG PO (09:10)
[2019-10-11] MEDS: dexamethasone 4 mg Tablet 20 MG PO (09:11)
[2019-10-11] MEDS: palonosetron 0.25 mg/5 mL SDV IV (09:36)
[2019-10-11] MEDS: sodium chloride 0.9% 500 ML IV (09:55)
== END 2019-10-11 08:58 | disposition home or self-care (01) ==
LOC: ONCMED 08:59
PROVIDERS: PCP Internal Medicine; Visit Provider Nurse Practitioner
DX: Z51.12 Encounter for antineoplastic immunotherapy (principal); C90.00 Multiple myeloma not having achieved remission; D47.2 Monoclonal gammopathy; D70.1 Agranulocytosis secondary to cancer chemotherapy; T45.1X5A Adverse effect of antineoplastic and immunosuppressive drugs, initial encounter
CPT/HCPCS: 96361; 96367; 96375; 96413; 96415; 96417; J1200; J2469; J7040; J8540; J9047; J9145

== ENCOUNTER 2019-10-16 08:16 | Outpatient (CLI) | payer MEDICARE, SELFPAY ==
[2019-10-16 08:44] LABS: Basophils % 0.3 %; Eosinophils % 0.6 %; Hematocrit 29.9 % (37.0-47.0); Hemoglobin 9.7 g/dL (11.5-15.3); Lymphocytes # 0.9 10^3/uL (0.8-4.8); Lymphocytes % 24.6 %; Mean Corpuscular HGB Conc 32.4 g/dL (30.0-36.0); Mean Corpuscular Hemoglobin 32.6 pg (28.0-34.0); Mean Corpuscular Volume 100.3 fL (81-99); Mean Platelet Volume 11.5 fL (7.4-10.4); Monocytes # 0.3 10^3/uL (0.2-0.9); Monocytes % 8.8 %; Neutrophils # 2.3 10^3/uL (1.8-7.7); Neutrophils % 65.4 %; Nucleated Red Blood Cells % 0 %; Platelet Count 90 10^3/cmm (130-400); Red Blood Count 2.98 10^6/uL (4.1-5.3); Red Cell Distribution Width 13.6 % (12.1-15.1); White Blood Count 3.5 10^3/uL (4.0-10.0)
[2019-10-16 09:05] LABS: Alanine Aminotransferase 10 U/L (0-33); Albumin Level 3.8 g/dL (3.5-5.2); Alkaline Phosphatase 78 IU/L (35-105); Anion Gap 13.3 (5-19); Aspartate Amino Transferase 15 U/L (0-32); Blood Urea Nitrogen 8 mg/dL (8-23); Carbon Dioxide 26 mmol/L (22-29); Chloride 103 mmol/L (98-107); Globulin 2.8 g/dL (1.3-4.6); Glucose 90 mg/dL (65-115); Osmolality Calculated 281 mOsm/kg (285-295); Potassium 4.3 mmol/L (3.5-5.1); Sodium 138 mmol/L (136-145); Total Bilirubin 0.4 mg/dL (0.15-1.2); Total Protein 6.6 g/dL (6.6-8.7)
[2019-10-16] MEDS: acetaminophen 325 mg Tablet 650 MG PO (10:35)
[2019-10-16] MEDS: sodium chloride 0.9% 500 ML 75 ML IV (10:38)
--- NOTE | 2019-10-20 08:34 | ONC FU_ITS ---
Dr. Sanchez Patient Follow-Up Note Patient: Karely Armenta Unit #: [id number]: [id number] Dicatated By: Sean Sanchez M.D.Date of Visit:October 16, 2019 Onc Med Follow-up/Prog Note Chief Complaint: Myeloma. History of Present Illness: This is a 69 year-old woman with IgG kappa myeloma. She was found to be moderately anemic in December 2016 when she was admitted to the hospital with pneumonia. She also reported having had an illness the preceding summer, in October or November, which may have been tick fever, but that was never confirmed. Her follow-up laboratory studies with Dr. Garcia on 05/03/2017 included CBC showing hemoglobin 11.9 g with white blood cell count 5100 and platelet count 155,000. Her sedimentation rate was significantly elevated at 94 mm/hour. The chem profile showed normal renal function with BUN 13 and creatinine 0.96 mg/dL. Calcium was normal at 9.0 mg/dL. The total protein was elevated at 9.0 g/dL with albumin 4.0 g/dL and calculated serum globulin elevated at 5.0 g/dL. Protein electrophoresis showed a monoclonal protein quantitating at 2.5 g/dL. Immunofixation showed an IgG kappa paraprotein measuring 2.87 g/dL. Hepatits screen was nonreactive to hepatitis C, hepatitis Bs antigen, and hepatitis B core total Ab referral. The hepatitis B surface antibody was < 3.10. LDH was normal at 149 U/L. The beta-2 microglobulin was slightly elevated at 0.420 mg/dL. I had seen her initially on 05/11/2017. Repeat protein electrophoresis with immunofixation prior to that visit, from 05/09/2017, showed IgG kappa monoclonal protein quantitating at 2.87 g/dL. The kappa light chain was elevated at 177.96 mg/L with lambda light chain 1.73 mg/L and kappa/lambda ratio elevated at 102. On her further evaluation there was no monoclonal protein detected in a 24-hour urine specimen. Skeletal survey on 05/11/2017 showed cervical and lumbar spondylosis and bilateral hip joint osteoarthritic changes. There was no radiographic evidence of multiple myeloma. She underwent bone marrow aspiration/biopsy on 05/17/2017. The cellularity was estimated at 70% with 32% plasma cells. Iron stores were noted to be absent. The FISH panel for myeloma showed gain of chromosome 1q, deletions of RB 1 and LAMP1, and gain of IG. The standard chromosome analysis was normal. Overall, the findings were consistent with plasma cell neoplasm/myeloma. Staging PET/CT on 06/03/2017 showed a single FDG avid osteolytic site in the T1 vertebral body which was felt to possibly represent multiple myeloma. She then had further evaluation with MRI of the spine on 07/12/2017. There were significant degenerative changes in the cervical spine which included moderate central canal stenosis at C4-C5, C5-C6, and C7 as well as bilateral nerve root encroachment at C5, C6, and C7. There were also degenerative changes in the lumbar spine with interval STIR signal abnormality and enhancement of T10-L5 spinous processes suggesting possible myelomatous changes. The thoracic spine showed subtle diffuse signal and enhancement abnormality involving the T1 vertebral body. In correlation with the PET/CT findings, this was felt to be suspicious for neoplastic process, including multiple myeloma. There were no actual lytic lesions identified. She had further laboratory evaluation on 07/26/2017. Her CBC at that point showed hemoglobin down slightly to 10.1 g with white blood cell count 3700 and platelet count 122,000. Chem profile showed borderline renal function with BUN 12 and creatinine 1.1 mg/dL and calculated GFR 49 mm/hour. Repeat protein electrophoresis showed M protein increased to 3.22 g/dL compared to 2.87 g/dL in April. Her quantitative immunoglobulin levels showed elevated IgG at 3800 mg/dL and IgA low at less than 8.00 and IgM low at 5.50 mg/dL. Her serum iron studies showed normal transferrin saturation at 30.9%, but ferritin was low at 14.4 ng/mL. B12 level was in low-normal range at 288 pg/mL. She is seen for a follow-up visit on 08/14/2017. At that point she did agree to begin treatment with Velcade/Revlimid/dexamethasone. She began her cycle 1 of Velcade/Revlimid/dexamethasone on 09/11/2017. At that time she also began prophylaxis with Bactrim and acyclovir. When she returned for her day 4 Velcade injection, she had developed a significant skin eruption, and she was advised to stop both the Revlimid and the Bactrim. At day 8 she had a reduction in the Velcade dosage to 1.0 mg/m???, as her neutrophil count had dropped to 800 and she also was experiencing some neuropathy. The Revlimid remained on hold. As of 10/17/2017 the ANC was still only 700, and I did opt to delay her 2nd cycle of treatment. Her repeat protein electrophoresis from 10/09/2017 did show a decline in her M protein to 2.71 g/dL compared to a pretreatment level of 3.73 g/dL. She eventually continued with cycle 2 on 10/23/2017 with the Velcade dosage reduced at 1.0 mg/m???. The Revlimid dosage was reduced to 10 mg. Despite the reductions, her cycle 3 was delayed again due to neutropenia. Her repeat protein electrophoresis on 11/20/2017 showed essentially stable M protein level at 2.77 g/dL. She continued with cycle 3 on 12/04/2017. Her neutrophil count at that point was back up to 1900. With that cycle she stopped Revlimid after 1 day and her day for Velcade was held due to multiple symptoms including sore throat, swelling in her throat, hoarseness, and cough. She did receive day 8 Velcade, but her day 11 treatment also was held. She eventually did continue with a 4th cycle of treatment on 12/26/2017 and with the 5th cycle on a 01/16/2018, but with both of those she showed up for only 3 of her scheduled Velcade injections. As of cycle 5 her M protein was still basically stable at 2.82 g/dL. Beginning with cycle 6 her treatment was changed to a 28 day cycle with Velcade administered on days 1, 8, and 15, with Revlimid administered on a day schedule, and with dexamethasone administered weekly. With that change her compliance improved. As of 03/05/2018 she began her 7th cycle of treatment. At that point her serum protein electrophoresis had shown a significant decline in the M protein, to 1.41 g/dL. With continued treatment there was further decline in the M protein. As of 05/08/2018 on day 8 of cycle 9 it had decreased to 0.84 g/dL. However, at day 1 of cycle 10 on 05/30/2018 it increased slightly to 1.11 g/dL. At cycle 10 day 22 on 06/19/2018 it had stabilized at 1.09 g/dL. Restaging PET/CT on 06/23/2018 showed the T1 lesion to be weakly FDG positive and unchanged from the previous study in May 2017. Given those findings, I did opt to put her further treatment on hold. Her repeat protein electrophoresis on 07/20/2018 showed an increase in the M protein to 1.4 g/dL. The free light chain assay showed elevated kappa light chain at 83.8 mg/L with lambda light chain 2.9 mg/L and elevated kappa/lambda ratio at 28.90. With those findings, she was advised to continue to second line treatment. She had indicated that she preferred not to be on any type of IV infusion. As such, I recommend a trial of therapy with Revlimid/ixazomib/dexamethasone. She began cycle 1 of Revlimid/ixazomib/dexamethasone on 08/29/2018. Due to her previous toxicities with Revlimid, it was initiated at a reduced dosage of 10 mg daily on a 21/28 day schedule with ixazomib dosed at 4 mg on days 18 and 15 and the dexamethasone dose at 40 mg weekly. She was able to tolerate it with acceptable toxicity, and she continued with cycle 2 on 09/26/2018 and with cycle 3 on 10/25/2018. Her repeat protein electrophoresis in September did show some decline in the M protein, to 1.0 g/dL. It then stabilized, and she continued her same treatment. As of 01/24/2019 the protein electrophoresis showed her quantitative M protein at 1.1 g/dL. The free light chain assay showed kappa light chain elevated at 105.1 mg/L, lambda light chain 7.0 mg/L, and elevated kappa/lambda ratio at 15.01. She continued treatment with Revlimid/ixazomib/dexamethasone. As of 04/22/2019 her protein electrophoresis showed M protein stable at 0.9 g/dL, but her free light chain assay continued to show elevated kappa/lambda ratio at 15.37. Her quantitative immunoglobulin levels showed IgG 1165 mg/dL with IgA low at 10 mg/dL and IgM low at 17 mg/dL. Her CBC showed stable hemoglobin at 12 g, but her ANC was low at 700. As of 05/06/2019 her treatment was put on hold due to persistent neutropenia. Her 24 urine protein electrophoresis showed no monoclonal protein. Her other medical illnesses include hypertension, hyperlipidemia, coronary artery disease, hypothyroidism, GERD, fibromyalgia, degenerative arthritis, and anxiety/depression. Her surgical/procedural history includes coronary angioplasty/stent placement 2015. She has arthroscopic left knee surgery, and she also has had surgery on the right shoulder. She has history of smoking for 25 years, from 1-3 packs of cigarettes daily. She quit smoking in 1989. She has had just occasional alcohol use. She is [employer], and she will not accept blood products. INTERIM HISTORY: In May 2019 she had taken a trip to [place], and while she was there she became very ill and required treatment for pneumonia. She returned here for a follow-up visit in June. Her repeat protein electrophoresis on 07/02/2019 showed increase in the M protein to 2.0 g/dL. Her free light chain assay showed increased kappa light chain to 142 mg/L with lambda light chain 2.9 mg/L, and elevated kappa/lambda ratio at 49.38. Restaging PET/CT on 07/13/2019 showed stable findings in the T1 lesion with FDG activity no greater than that of marrow background, consistent with successfully treated disease. There was no evidence of any new lesions. However, with the significant increase in the M protein and in the kappa free light chain, she was recommended to proceed with third line treatment with daratumumab in combination with carfilzomib and dexamethasone. She underwent placement of Port-A-Cath venous access device in preparation for that treatment. Her baseline echocardiogram showed normal left ventricular function with ejection fraction estimated at 60%. She returned to begin cycle 1 of daratumumab/carfilzomib/dexamethasone on 08/12/2019. The initial infusion of daratumumab was administered in divided doses over 2 days. She tolerated the treatment well. However, her day 8 treatment was complicated by nausea and profuse diaphoresis, which she attributed to the daratumumab. She was able to complete her day 9 carfilzomib treatment. Her day 15/16 treatment was withheld due to a drop in her white blood cell count to 2000 with her ANC at 1000. She did not have fever or other complications. She was given her week 3 daratumumab the following week, but I did opt to split the dosage over 2 days. She tolerated it with no adverse effects. She continued with cycle 2 on 09/11/2019 with the carfilzomib administered at a reduced dosage and with the daratumumab administered in a split dosage. She continued to have anemia, moderately severe neutropenia, and mild thrombocytopenia, but she was able to tolerate the treatment with acceptable toxicity. As of 10/02/2019 the M protein had decreased to 1.1 g/dL. She proceeded with cycle 3 on 10/09/2019. She is seen for a followup visit. She has been feeling pretty good generally. She is at day 8 of cycle 3, and she has now completed 8 infusions of daratumumab on a weekly schedule. She has some fatigue, but she remains very active. Her ECOG score is 1. She has good appetite. She has not had fever or night sweats. She recently had a tick bite on her right leg. She says she gets winded real easily. She does not have cough. She reports having some tightness in her chest when she is lying in bed at night. She had nausea/vomiting following her treatment last week. She has no other GI or complaints. She continues to have pain in her back and hip. She has been having headache on a pretty regular basis, mainly in the right parietal area. She says she has had one migraine. She sometimes has dizziness. She has some numbness/tingling in her hands and feet. Medications: amLODIPine Besylate 1 Tablet (of 5 mg) Oral daily, Body/Hair/Skin/Nails 2 Capsule Oral daily, Himxphmbcp-HXBR-Aomi-Cod 1 (47-929-20-30 mg) Capsule Oral four times a day PRN, Cholecalciferol 2 (1000 Units) Capsule Oral daily, Curcumin 95 1 (500 mg) Capsule Oral daily PRN, Cymbalta 1 (60 mg) Capsule Delayed Release Particles Oral daily, Furosemide 1 Tablet (of 20 mg) Oral daily PRN, Levothyroxine Sodium 1 (50 mcg) Tablet Oral daily, Lisinopril 1 (25 mg) Tablet Oral daily, LORazepam 0.5 - 1 (1 mg) Tablet Oral q 4 hours PRN, Multivitamin Adult 1 Tablet Oral daily, Nitroglycerin 1 (400 mcg/spray) Aerosol, solution Translingual PRN, OxyCODONE HCl 1 (30 mg) Tablet Oral 5x/d PRN, Pantoprazole Sodium 1 Tablet (of 40 mg) Tablet, enteric coated Oral daily, Plavix 1 (75 mg) Tablet Oral daily, Potassium Chloride ER 1 Tablet (of 10 meq) Tablet, controlled release Oral daily PRN, Pravastatin Sodium 1 (40 mg) Tablet Oral daily, Prochlorperazine Maleate 1 (10 mg) Tablet Oral four times a day PRN, QUEtiapine Fumarate 2 Tablet (of 25 mg) Oral at bedtime, Soma 1 (350 mg) Tablet Oral four times a day PRN Allergies: Codeine Sulfate, LevoFLOXacin, and Vicodin. Review of Systems: Constitutional - She has fatigue, but she is staying active. Appetite is good and weight is stable. No fever, chills, hot flashes, or night sweats. ECOG score is 1, ENMT - She has occasional sinus congestion/drainage at night. No mouth sores. No sore throat or difficulty swallowing, Hematologic/Lymphatic - Abnormal bruising, Respiratory - She has shortness of breath with activity. No cough. No pleuritic pain or hemoptysis, Cardiovascular - She has tightness in her chest when she lies in bed at night. No palpitations, Gastrointestinal - She has intermittent nausea and vomiting. No heartburn or acid reflux. No diarrhea or constipation. No blood in the stool or black stools, Genitourinary (F) - No dysuria or hematuria. No urinary frequency. No urgency or incontinence, Musculoskeletal - She has intermittent back and hip pain, Integumentary - No skin rashes, Neurologic - She has headaches frequently. She had one migraine since her last visit. Her nausea is worse when she has a migraine. She has some dizziness and lightheadness. She has numbness/paresthesias in her arms and feet, Psychiatric - She has occasional anxiety and depression. No insomnia. Vital Signs: Performed on October 16, 2019 09:20 Height - 66.00 in Weight - 160.4 lbs (HIGH) BSA - 1.82 sq.m BMI - 25.89 Temperature - 98.4 F Pulse - 68 /min Respiration - 18 /min BP - 121/67 mm(hg) O2 Sat - 99 % Pain - 5 Physical Examination: Constitutional - She looks pretty good generally, Eyes - Sclerae nonicteric. Conjunctivae clear, ENMT - No lesions noted in the oral cavity, Hematologic/Lymphatic - No cervical, clavicular, or axillary adenopathy, Respiratory - Lungs are clear with good air movement bilaterally, Cardiovascular - Heart rhythm is regular. There is no murmur, gallop, or rub noted, Abdomen - Soft. Liver and spleen are not enlarged. There is no abdominal mass or ascites noted and there is no inguinal adenopathy, Extremities - No edema. She still has extensive bruising on her arms, but it does appear to be resolving, Neurologic - No focal neurologic deficits noted. Lab/Imaging: Test performed on October 16, 2019 08:23 Sodium 138 mmol/L Potassium 4.3 mmol/L Chloride 103 mmol/L CO2 26 mmol/L Anion Gap 13.3 BUN 8 mg/dL Creatinine 0.7 mg/dL Cr Clearance (Est) 91.1400 mL/min eGFR 83.0 mL/min Glucose 90 mg/dL Calcium 9.0 mg/dL Protein, Total 6.6 g/dL Albumin 3.8 g/dL Globulin 2.8 g/dL Bilirubin, Total 0.4 mg/dL ALT (SGPT) 10 U/L AST (SGOT) 15 U/L Alkaline Phosphatase 78 IU/L WBC 3.5 10 3/uL RBC 2.98 10 6/uL HGB 9.7 g/dL HCT 29.9 % MCV 100.3 fL MCH 32.6 pg MCHC 32.4 g/dL RDW 13.6 % Platelet Count 90 10 3/cmm MPV 11.5 fL Neutrophils 2.3 10 3/uL Lymphocytes 0.9 10 3/uL Monocytes 0.3 10 3/uL Eosinophils 0.0 10 3/uL Basophils 0.0 10 3/uL Neutrophil % 65.4 % Lymphocyte % 24.6 % Monocyte % 8.8 % Eosinophil % 0.6 % Basophils % 0.3 % Impression: 1. Patient with IgG kappa myeloma. Bone marrow aspiration/biopsy on 05/17/2017 showed 32% plasma cells, consistent with myeloma. The FISH panel showed gain of chromosome 1q, deletions of RB 1 and LAMP1, and gain of IG. Her baseline M protein was 2.87 g/dL. She was mildly anemic and she had significantly elevated sedimentation rate. She had normal renal function and negative 24-hour urine protein electrophoresis. Skeletal survey showed no lytic bone involvement. PET/CT and MRI both showed findings suspicious for involvement of the T1 vertebral body. She does not appear to be overtly symptomatic with it. 2. Her bone marrow also showed absent storage iron. Her other medical illnesses include: 3. Hypertension. 4. Hyperlipidemia. 5. Coronary artery disease with angioplasty/stent placement in February 2016. 6. Hypothyroidism. 7. GERD. 8. Degenerative arthritis/degenerative disease of the spine. 9. Fibromyalgia. 10. Anxiety/depression. She has been undergoing treatment with Velcade/Revlimid/dexamethasone, cycle 1 beginning on 09/11/2017. Overall, her treatment was very suboptimal due in part to multiple side effects which included skin eruption and neutropenia, among others. Compliance also had been somewhat of an issue. Beginning with her 6th cycle of treatment, on 02/05/2018, her treatment was changed to a 28 day schedule with Velcade administered at a reduced dosage on days 1, 8, and 15, with Revlimid administered at 10 mg daily on a 21/28 day schedule, and with dexamethasone administered weekly. She began cycle 7 on 03/05/2018. Her serum protein electrophoresis at that point did show a significant decrease in the M protein, to 1.41 g/dL. She then continued treatment at the same dosages, but intermittently she still had moderately severe neutropenia. She had otherwise been tolerating the treatment well. She began her 10th cycle of treatment on 05/30/2018. At that point her M protein had stabilized at just over 1 g/dL. She appeared stable clinically, and restaging PET/CT showed only mild FDG activity in the T1 lesion. There were no other areas of FDG uptake, and there was no significant change compared to the prior study in May 2017. As on 07/20/2018 her repeat protein electrophoresis showed a significant increase in the M protein to 1.4 g/dL, and her free light chain assay showed an increase in the kappa/lambda ratio to28.90. With those findings, she was advised to proceed with second line treatment. She indicated that she preferred not to have any IV medication. As such, on 08/29/2018 she began a trial of therapy with Revlimid/ixazomib/dexamethasone. Due to her previous toxicities, the Revlimid was initiated at a reduced dosage of 10 mg daily on a 21/28 day schedule. As of October 2018, following 3 cycles of treatment, her M protein had stabilized at 1.0 g/dL. She continued her same treatment, and as of 01/24/2019 her M protein and her free light chain had remained stable. Her clinical status at that time also appeared stable, and she continued treatment with Revlimid, ixazomib, and dexamethasone at the same dosages. As of 04/22/2019 her protein electrophoresis showed M protein stable at 0.9 g/dL, but her free light chain assay continued to show elevated kappa/lambda ratio at 15.37. Her quantitative immunoglobulin levels showed IgG 1165 mg/dL with IgA low at 10 mg/dL and IgM low at 17 mg/dL. Her CBC showed stable hemoglobin at 12 g, but her ANC was low at 700. As of 05/06/2019 her treatment was put on hold due to persistent neutropenia. Her 24 hour urine protein electrophoresis showed no monoclonal protein. As of her follow-up visit in June 2019 there was evidence of disease progression with significant increase in her M protein and and her kappa free light chain. Her restaging PET/CT showed stable findings at the T1 vertebral body lesion and no evidence of any new lesions. With those findings, she began third line treatment with daratumumab/carfilzomib/dexamethasone on 08/12/2019. She has now completed 1 cycle of treatment. She tolerated her day 1/day 2 treatments very well. She developed mulitple side effects following her day 8 treatment, which she attibuted to the daratumumab. She was able to complete her day 9 carfilzomib treatment. Her day 15/16 treatment was withheld due to neutropenia, ANC 1000. She completed her week 3 daratumumab the following week, but with the dosage split over 2 days. She tolerated it without adverse effects. On 09/11/2019 continued with cycle 2 of daratumumab/carfilzomib/dexamethasone with the carfilzomib administered at a reduced dosage and with the daratumumab administered in a split dosage. She continued to have anemia, moderately severe neutropenia, and mild thrombocytopenia, but she was able to tolerate the treatment with acceptable toxicity. She has had some evidence of response, though not dramatic, with her repeat protein electrophoresis on 10/02/2019 showing decline in the M protein, to 1.1 g/dL. She proceeded with cycle 3 on 10/09/2019. Her blood counts remain adequate, and her clinical status appears stable. Plan: She will continue with her cycle 3 day 8 and day 9 carfilzomib. The dosage will remain the same. The daratumumab will now be given at 2-week intervals. She returns in 1 week for her week for treatment day 15 treatment. Signed By: Sean Sanchez M.D. <<Signature on File>>
== END 2019-10-16 08:17 | disposition home or self-care (01) ==
LOC: ONCMED 08:18
PROVIDERS: PCP Internal Medicine; Visit Provider Internal Medicine Medical Oncology
DX: Z51.12 Encounter for antineoplastic immunotherapy (principal); C90.00 Multiple myeloma not having achieved remission; D47.2 Monoclonal gammopathy; D70.1 Agranulocytosis secondary to cancer chemotherapy; I10 Essential (primary) hypertension; E78.5 Hyperlipidemia, unspecified; I25.10 Atherosclerotic heart disease of native coronary artery without angina pectoris; E03.9 Hypothyroidism, unspecified; K21.9 Gastro-esophageal reflux disease without esophagitis; M47.9 Spondylosis, unspecified; M79.7 Fibromyalgia; F41.9 Anxiety disorder, unspecified; F32.9 Major depressive disorder, single episode, unspecified; Z95.5 Presence of coronary angioplasty implant and graft; Z79.899 Other long term (current) drug therapy; Z92.21 Personal history of antineoplastic chemotherapy
CPT/HCPCS: 80053; 85025; 96367; 96413; 99214; J1200; J2405; J7040; J9047

== ENCOUNTER 2019-10-17 09:01 | Outpatient (CLI) | payer MEDICARE, SELFPAY ==
[2019-10-17] MEDS: acetaminophen 325 mg Tablet 650 MG PO (09:20)
[2019-10-17] MEDS: dexamethasone 4 mg Tablet 20 MG PO (09:20)
[2019-10-17] MEDS: palonosetron 0.25 mg/5 mL SDV IV (09:21)
[2019-10-17] MEDS: sodium chloride 0.9% 1,000 ML 999 ML IV (09:40)
== END 2019-10-17 09:02 | disposition home or self-care (01) ==
PROVIDERS: PCP Internal Medicine; Visit Provider Nurse Practitioner
DX: C90.00 Multiple myeloma not having achieved remission (principal); D47.2 Monoclonal gammopathy; D70.1 Agranulocytosis secondary to cancer chemotherapy; T45.1X5A Adverse effect of antineoplastic and immunosuppressive drugs, initial encounter
CPT/HCPCS: 96367; 96375; 96413; J1200; J2469; J7030; J8540; J9047

== ENCOUNTER 2019-10-22 08:15 | Outpatient (CLI) | payer MEDICARE, SELFPAY ==
[2019-10-22 09:29] LABS: Basophils % 0.4 %; Eosinophils % 1.1 %; Hematocrit 29.3 % (37.0-47.0); Hemoglobin 9.1 g/dL (11.5-15.3); Lymphocytes # 0.9 10^3/uL (0.8-4.8); Lymphocytes % 35.7 %; Mean Corpuscular HGB Conc 31.1 g/dL (30.0-36.0); Mean Corpuscular Hemoglobin 31.7 pg (28.0-34.0); Mean Corpuscular Volume 102.1 fL (81-99); Mean Platelet Volume 11.3 fL (7.4-10.4); Monocytes # 0.3 10^3/uL (0.2-0.9); Monocytes % 10.6 %; Neutrophils # 1.4 10^3/uL (1.8-7.7); Neutrophils % 52.2 %; Nucleated Red Blood Cells % 0 %; Platelet Count 108 10^3/cmm (130-400); Red Blood Count 2.87 10^6/uL (4.1-5.3); Red Cell Distribution Width 14.3 % (12.1-15.1); White Blood Count 2.6 10^3/uL (4.0-10.0)
[2019-10-22 09:43] LABS: Alanine Aminotransferase 10 U/L (0-33); Albumin Level 3.8 g/dL (3.5-5.2); Alkaline Phosphatase 77 IU/L (35-105); Aspartate Amino Transferase 17 U/L (0-32); Blood Urea Nitrogen 8 mg/dL (8-23); Calcium 8.6 mg/dL (8.5-10.5); Carbon Dioxide 25 mmol/L (22-29); Chloride 103 mmol/L (98-107); Globulin 2.4 g/dL (1.3-4.6); Glucose 104 mg/dL (65-115); Osmolality Calculated 280 mOsm/kg (285-295); Sodium 137 mmol/L (136-145); Total Bilirubin 0.4 mg/dL (0.15-1.2); Total Protein 6.2 g/dL (6.6-8.7)
--- NOTE | 2019-10-22 12:14 | ONC FU_ITS ---
[facility] Patient Note Patient: Karely Armenta Unit #: [id number]: 1950 Dictated By: Say CastilloDate of Visit: Oct 22, 2019 Onc MED Follow-Up/Prog Note Chief Complaint: Myeloma. History of Present Illness: Ms Armenta is a 69 year-old woman with IgG kappa myeloma. She was found to be moderately anemic in December 2016 when she was admitted to the hospital with pneumonia. She also reported having had an illness the preceding summer, in October or November, which may have been tick fever, but that was never confirmed. Her follow-up laboratory studies with Dr. Garcia on 05/03/2017 included CBC showing hemoglobin 11.9 g with white blood cell count 5100 and platelet count 155,000. Her sedimentation rate was significantly elevated at 94 mm/hour. The chem profile showed normal renal function with BUN 13 and creatinine 0.96 mg/dL. Calcium was normal at 9.0 mg/dL. The total protein was elevated at 9.0 g/dL with albumin 4.0 g/dL and calculated serum globulin elevated at 5.0 g/dL. Protein electrophoresis showed a monoclonal protein quantitating at 2.5 g/dL. Immunofixation showed an IgG kappa paraprotein measuring 2.87 g/dL. Hepatits screen was nonreactive to hepatitis C, hepatitis Bs antigen, and hepatitis B core total Ab referral. The hepatitis B surface antibody was < 3.10. LDH was normal at 149 U/L. The beta-2 microglobulin was slightly elevated at 0.420 mg/dL. Dr Sanchez had seen her initially on 05/11/2017. Repeat protein electrophoresis with immunofixation prior to that visit, from 05/09/2017, showed IgG kappa monoclonal protein quantitating at 2.87 g/dL. The kappa light chain was elevated at 177.96 mg/L with lambda light chain 1.73 mg/L and kappa/lambda ratio elevated at 102. On her further evaluation there was no monoclonal protein detected in a 24-hour urine specimen. Skeletal survey on 05/11/2017 showed cervical and lumbar spondylosis and bilateral hip joint osteoarthritic changes. There was no radiographic evidence of multiple myeloma. She underwent bone marrow aspiration/biopsy on 05/17/2017. The cellularity was estimated at 70% with 32% plasma cells. Iron stores were noted to be absent. The FISH panel for myeloma showed gain of chromosome 1q, deletions of RB 1 and LAMP1, and gain of IG. The standard chromosome analysis was normal. Overall, the findings were consistent with plasma cell neoplasm/myeloma. Staging PET/CT on 06/03/2017 showed a single FDG avid osteolytic site in the T1 vertebral body which was felt to possibly represent multiple myeloma. She then had further evaluation with MRI of the spine on 07/12/2017. There were significant degenerative changes in the cervical spine which included moderate central canal stenosis at C4-C5, C5-C6, and C7 as well as bilateral nerve root encroachment at C5, C6, and C7. There were also degenerative changes in the lumbar spine with interval STIR signal abnormality and enhancement of T10-L5 spinous processes suggesting possible myelomatous changes. The thoracic spine showed subtle diffuse signal and enhancement abnormality involving the T1 vertebral body. In correlation with the PET/CT findings, this was felt to be suspicious for neoplastic process, including multiple myeloma. There were no actual lytic lesions identified. She had further laboratory evaluation on 07/26/2017. Her CBC at that point showed hemoglobin down slightly to 10.1 g with white blood cell count 3700 and platelet count 122,000. Chem profile showed borderline renal function with BUN 12 and creatinine 1.1 mg/dL and calculated GFR 49 mm/hour. Repeat protein electrophoresis showed M protein increased to 3.22 g/dL compared to 2.87 g/dL in April. Her quantitative immunoglobulin levels showed elevated IgG at 3800 mg/dL and IgA low at less than 8.00 and IgM low at 5.50 mg/dL. Her serum iron studies showed normal transferrin saturation at 30.9%, but ferritin was low at 14.4 ng/mL. B12 level was in low-normal range at 288 pg/mL. She is seen for a follow-up visit on 08/14/2017. At that point she did agree to begin treatment with Velcade/Revlimid/dexamethasone. She began her cycle 1 of Velcade/Revlimid/dexamethasone on 09/11/2017. At that time she also began prophylaxis with Bactrim and acyclovir. When she returned for her day 4 Velcade injection, she had developed a significant skin eruption, and she was advised to stop both the Revlimid and the Bactrim. At day 8 she had a reduction in the Velcade dosage to 1.0 mg/m???, as her neutrophil count had dropped to 800 and she also was experiencing some neuropathy. The Revlimid remained on hold. As of 10/17/2017 the ANC was still only 700, and I did opt to delay her 2nd cycle of treatment. Her repeat protein electrophoresis from 10/09/2017 did show a decline in her M protein to 2.71 g/dL compared to a pretreatment level of 3.73 g/dL. She eventually continued with cycle 2 on 10/23/2017 with the Velcade dosage reduced at 1.0 mg/m???. The Revlimid dosage was reduced to 10 mg. Despite the reductions, her cycle 3 was delayed again due to neutropenia. Her repeat protein electrophoresis on 11/20/2017 showed essentially stable M protein level at 2.77 g/dL. She continued with cycle 3 on 12/04/2017. Her neutrophil count at that point was back up to 1900. With that cycle she stopped Revlimid after 1 day and her day for Velcade was held due to multiple symptoms including sore throat, swelling in her throat, hoarseness, and cough. She did receive day 8 Velcade, but her day 11 treatment also was held. She eventually did continue with a 4th cycle of treatment on 12/26/2017 and with the 5th cycle on a 01/16/2018, but with both of those she showed up for only 3 of her scheduled Velcade injections. As of cycle 5 her M protein was still basically stable at 2.82 g/dL. Beginning with cycle 6 her treatment was changed to a 28 day cycle with Velcade administered on days 1, 8, and 15, with Revlimid administered on a day schedule, and with dexamethasone administered weekly. With that change her compliance improved. As of 03/05/2018 she began her 7th cycle of treatment. At that point her serum protein electrophoresis had shown a significant decline in the M protein, to 1.41 g/dL. With continued treatment there was further decline in the M protein. As of 05/08/2018 on day 8 of cycle 9 it had decreased to 0.84 g/dL. However, at day 1 of cycle 10 on 05/30/2018 it increased slightly to 1.11 g/dL. At cycle 10 day 22 on 06/19/2018 it had stabilized at 1.09 g/dL. Restaging PET/CT on 06/23/2018 showed the T1 lesion to be weakly FDG positive and unchanged from the previous study in May 2017. Given those findings, it was opted to put her further treatment on hold. Her repeat protein electrophoresis on 07/20/2018 showed an increase in the M protein to 1.4 g/dL. The free light chain assay showed elevated kappa light chain at 83.8 mg/L with lambda light chain 2.9 mg/L and elevated kappa/lambda ratio at 28.90. With those findings, she was advised to continue to second line treatment. She had indicated that she preferred not to be on any type of IV infusion. As such, Dr Sanchez recommend a trial of therapy with Revlimid/ixazomib/dexamethasone. She began cycle 1 of Revlimid/ixazomib/dexamethasone on 08/29/2018. Due to her previous toxicities with Revlimid, it was initiated at a reduced dosage of 10 mg daily on a 21/28 day schedule with ixazomib dosed at 4 mg on days 18 and 15 and the dexamethasone dose at 40 mg weekly. She was able to tolerate it with acceptable toxicity, and she continued with cycle 2 on 09/26/2018 and with cycle 3 on 10/25/2018. Her repeat protein electrophoresis in September did show some decline in the M protein, to 1.0 g/dL. It then stabilized, and she continued her same treatment. As of 01/24/2019 the protein electrophoresis showed her quantitative M protein at 1.1 g/dL. The free light chain assay showed kappa light chain elevated at 105.1 mg/L, lambda light chain 7.0 mg/L, and elevated kappa/lambda ratio at 15.01. She continued treatment with Revlimid/ixazomib/dexamethasone. As of 04/22/2019 her protein electrophoresis showed M protein stable at 0.9 g/dL, but her free light chain assay continued to show elevated kappa/lambda ratio at 15.37. Her quantitative immunoglobulin levels showed IgG 1165 mg/dL with IgA low at 10 mg/dL and IgM low at 17 mg/dL. Her CBC showed stable hemoglobin at 12 g, but her ANC was low at 700. As of 05/06/2019 her treatment was put on hold due to persistent neutropenia. Her 24 urine protein electrophoresis showed no monoclonal protein. Her other medical illnesses include hypertension, hyperlipidemia, coronary artery disease, hypothyroidism, GERD, fibromyalgia, degenerative arthritis, and anxiety/depression. Her surgical/procedural history includes coronary angioplasty/stent placement 2015. She has arthroscopic left knee surgery, and she also has had surgery on the right shoulder. She has history of smoking for 25 years, from 1-3 packs of cigarettes daily. She quit smoking in 1989. She has had just occasional alcohol use. She is Taoism, and she will not accept blood products. INTERIM HISTORY: In May 2019 she had taken a trip to [place], and while she was there she became very ill and required treatment for pneumonia. She returned here for a follow-up visit in June. Her repeat protein electrophoresis on 07/02/2019 showed increase in the M protein to 2.0 g/dL. Her free light chain assay showed increased kappa light chain to 142 mg/L with lambda light chain 2.9 mg/L, and elevated kappa/lambda ratio at 49.38. Restaging PET/CT on 07/13/2019 showed stable findings in the T1 lesion with FDG activity no greater than that of marrow background, consistent with successfully treated disease. There was no evidence of any new lesions. However, with the significant increase in the M protein and in the kappa free light chain, she was recommended to proceed with third line treatment with daratumumab in combination with carfilzomib and dexamethasone. She underwent placement of Port-A-Cath venous access device in preparation for that treatment. Her baseline echocardiogram showed normal left ventricular function with ejection fraction estimated at 60%. She returned to begin cycle 1 of daratumumab/carfilzomib/dexamethasone on 08/12/2019. The initial infusion of daratumumab was administered in divided doses over 2 days. She tolerated the treatment well. However, her day 8 treatment was complicated by nausea and profuse diaphoresis, which she attributed to the daratumumab. She was able to complete her day 9 carfilzomib treatment. Her day 15/16 treatment was withheld due to a drop in her white blood cell count to 2000 with her ANC at 1000. She did not have fever or other complications. She was given her week 3 daratumumab the following week, but Dr Sanchez did opt to split the dosage over 2 days. She tolerated it with no adverse effects. She continued with cycle 2 on 09/11/2019 with the carfilzomib administered at a reduced dosage and with the daratumumab administered in a split dosage. She continued to have anemia, moderately severe neutropenia, and mild thrombocytopenia, but she was able to tolerate the treatment with acceptable toxicity. As of 10/02/2019 the M protein had decreased to 1.1 g/dL. She proceeded with cycle 3 on 10/09/2019. Ms Armenta is here today for followup and day 15 of cycle 3, and she has now completed 8 infusions of daratumumab on a weekly schedule. She states she feels pretty good today. However, after her last treatment of just the carfilzomib, she developed sudden shortness of breath and exertional dyspnea. She states she could only walk about 3 steps without feeling extremely short of breath. she states she had heaviness on her chest, but doesn't think it is her heart because this is a different feeling than what she has taken nitro sublingual for in the past. She states the shortness of breath is much better today and she does not have any chest discomfort. She denies any wheezing. She denies any cough. She is had no hemoptysis. She denies any fever or chills. She states otherwise she feels good. Her appetite is good energy is fair. She states she is tired after treatment but blames this on the chemotherapy as well. She denies any diarrhea constipation. She has had no mouth sores or sore throat or difficulty swallowing. She denies any nausea or vomiting. Her ECOG is 1. She states in total she is taken 4 nitroglycerin sublingual tablets over the last 1 to 2 months. She has not taken any with this recent shortness of breath/exertional dyspnea/chest discomfort. She states in the past when she takes them for her chest heaviness they do resolve her pain pretty quickly. Past Medical History: Anxiety/depression Chronic back pain Chronic migraine Coronary artery disease Fibromyalgia Gastroesophageal reflux disease Hypertension Hypothyroidism Past Surgical History: Arthroscopic left knee surgery Left breast biopsy for benign disease Removal of cyst from the right breast Right shoulder surgery Coronary angioplasty/stent placement in 2016 Colonoscopy in 2011 Allergies: Codeine Sulfate, LevoFLOXacin, and Vicodin. Medications: amLODIPine Besylate 1 Tablet (of 5 mg) Oral daily Body/Hair/Skin/Nails 2 Capsule Oral daily Mphhuypjqo-JIUG-Rtgl-Cod 1 (80-505-77-30 mg) Capsule Oral four times a day PRN Cholecalciferol 2 (1000 Units) Capsule Oral daily Curcumin 95 1 (500 mg) Capsule Oral daily PRN Cymbalta 1 (60 mg) Capsule Delayed Release Particles Oral daily Furosemide 1 Tablet (of 20 mg) Oral daily PRN Levothyroxine Sodium 1 (50 mcg) Tablet Oral daily Lisinopril 1 (25 mg) Tablet Oral daily LORazepam 0.5 - 1 (1 mg) Tablet Oral q 4 hours PRN Multivitamin Adult 1 Tablet Oral daily Nitroglycerin 1 (400 mcg/spray) Aerosol, solution Translingual PRN OxyCODONE HCl 1 (30 mg) Tablet Oral 5x/d PRN Pantoprazole Sodium 1 Tablet (of 40 mg) Tablet, enteric coated Oral daily Plavix 1 (75 mg) Tablet Oral daily Potassium Chloride ER 1 Tablet (of 10 meq) Tablet, controlled release Oral daily PRN Pravastatin Sodium 1 (40 mg) Tablet Oral daily Prochlorperazine Maleate 1 (10 mg) Tablet Oral four times a day PRN QUEtiapine Fumarate 2 Tablet (of 25 mg) Oral at bedtime Soma 1 (350 mg) Tablet Oral four times a day PRN Family History: Ms. Armenta's mother is alive: heart disease. Ms. Armenta's father is alive. Mother still living at age 87 and she is in relatively good health. She doesn't know about her biologic father. A brother is quadriplegic from a motor vehicle accident. A sister has bipolar disease. A maternal aunt had bladder cancer and another maternal aunt had ovarian cancer. Social History: Ms. Armenta is and she is retired. Ms. Armenta quit smoking 27 years ago but had smoked for 12 years. She drinks occasionally. Ms. Armenta reports the following support systems: lives alone, supportive family/friends willing to assist with needs, and adequate transportation available for expected visits. Her diet consists of regular meals. She indicates her activity level as: occasional exercise. She has a history of smoking for 25 years, in the range of 1-3 packs of cigarettes daily. She quit smoking in 1989. She has had just occasional alcohol use. Review Of Symptoms: Constitutional Denies fevers, chills, night sweats. She has had fatigue, but has been moving and working hard . Allergic/Immunologic No reactions. Eyes Denies significant visual changes. No diplopia. No amaurosis. ENMT Denies changes in hearing, mouth sores, difficulty or changes in swallowing ability, and/or sinus drainage. Endocrine Hematologic/Lymphatic Denies easy bleeding. The patient denies any tender or palpable lymph Respiratory has had sudden shortness of breath after last treatment. She states she could only walk about 3 steps without feeling extremely short of breath and heaviness on her chest. The discomfort and shortness of breath is persistent when she lays down. It is better today. Cardiovascular Denies anginal chest pain, palpitations or orthopnea. Gastrointestinal Denies nausea, vomiting, diarrhea, GI bleeding, or constipation. Denies change in bowel habits and/or stool color, no heartburn or early satiety. Genitourinary (F) No hematuria, hesitancy, incontinence, vaginal bleeding, discharge or other problems with urination. Musculoskeletal Denies joint swelling or redness. No decreased range of motion. States she is having joint pain off and on, but chronic and stable. Integumentary Denies chronic rashes, inflammation, ulcerations or skin changes. Neurologic Denies headache, blurred vision, and no areas of focal weakness or numbness. Normal gait. No sensory problems. Psychiatric Denies insomnia, depression, danelle or mood swings. Stress related to family-controlled at present. Vital Signs: Performed on Oct 22, 2019 10:02 Height - 66.00 in Weight - 159.4 lbs (LOW) BSA - 1.82 sq.m BMI - 25.73 Temperature - 97.8 F (LOW) Pulse - 75 /min Respiration - 22 /min BP - 163/81 mm(hg) (HIGH) O2 Sat - 95 % (LOW) Pain - 3,1 - No physically strenuous activity, but ambulatory and able to carry out light or sedentary work (e.g. office work, light house work). (ECOG) Physical Examination: Constitutional Alert, oriented, no acute distress. Skin pink, warm and dry. Head Normocephalic; atraumatic. Eyes Conjunctivae and sclerae are clear and without icterus. Pupils are reactive and equal. ENMT Sinuses are nontender. No oral exudates, ulcers, masses, thrush or mucositis. Tongue normal. Neck Supple without masses or thyromegaly. No jugular venous distension. Hematologic/Lymphatic No petechiae or purpura. Tender and palpable lymph nodes in the cervical bilateral. No adenopathy in the supraclavicular, or axillary area. Respiratory Lungs are clear to auscultation without rhonchi or wheezing. Cardiovascular Regular rate and rhythm of heart without murmurs,clicks, gallops or rubs. Breasts Abdomen Non-tender, non-distended, no masses, ascites. No guarding or rebound tenderness. No pulsatile masses. Back/Spine Non-tender to palpation. Extremities No visible deformities, no cyanosis, clubbing or edema. Musculoskeletal No tenderness or swelling, normal range of motion without obvious weakness. Integumentary No rashes or lesions. Neurologic No sensory or motor deficits, normal cerebellar function, normal gait. Psychiatric Alert and oriented times three. Coherent speech. Verbalizes understanding of our discussions today. Laboratory:Test performed on Oct 22, 2019 08:30 Sodium 137 mmol/L Potassium 4.0 mmol/L Chloride 103 mmol/L CO2 25 mmol/L Anion Gap 13.0 BUN 8 mg/dL Creatinine 0.7 mg/dL Cr Clearance (Est) 91.1400 mL/min eGFR 83.0 mL/min Glucose 104 mg/dL Calcium 8.6 mg/dL Protein, Total 6.2 g/dL Albumin 3.8 g/dL Globulin 2.4 g/dL Bilirubin, Total 0.4 mg/dL ALT (SGPT) 10 U/L AST (SGOT) 17 U/L Alkaline Phosphatase 77 IU/L WBC 2.6 10 3/uL RBC 2.87 10 6/uL HGB 9.1 g/dL HCT 29.3 % MCV 102.1 fL MCH 31.7 pg MCHC 31.1 g/dL RDW 14.3 % Platelet Count 108 10 3/cmm MPV 11.3 fL Neutrophils 1.4 10 3/uL Lymphocytes 0.9 10 3/uL Monocytes 0.3 10 3/uL Eosinophils 0.0 10 3/uL Basophils 0.0 10 3/uL Neutrophil % 52.2 % Lymphocyte % 35.7 % Monocyte % 10.6 % Eosinophil % 1.1 % Basophils % 0.4 % Impression: 1. Patient with IgG kappa myeloma. Bone marrow aspiration/biopsy on 05/17/2017 showed 32% plasma cells, consistent with myeloma. The FISH panel showed gain of chromosome 1q, deletions of RB 1 and LAMP1, and gain of IG. Her baseline M protein was 2.87 g/dL. She was mildly anemic and she had significantly elevated sedimentation rate. She had normal renal function and negative 24-hour urine protein electrophoresis. Skeletal survey showed no lytic bone involvement. PET/CT and MRI both showed findings suspicious for involvement of the T1 vertebral body. She does not appear to be overtly symptomatic with it. 2. Her bone marrow also showed absent storage iron. Her other medical illnesses include: 3. Hypertension. 4. Hyperlipidemia. 5. Coronary artery disease with angioplasty/stent placement in February 2016. 6. Hypothyroidism. 7. GERD. 8. Degenerative arthritis/degenerative disease of the spine. 9. Fibromyalgia. 10. Anxiety/depression. She has been undergoing treatment with Velcade/Revlimid/dexamethasone, cycle 1 beginning on 09/11/2017. Overall, her treatment was very suboptimal due in part to multiple side effects which included skin eruption and neutropenia, among others. Compliance also had been somewhat of an issue. Beginning with her 6th cycle of treatment, on 02/05/2018, her treatment was changed to a 28 day schedule with Velcade administered at a reduced dosage on days 1, 8, and 15, with Revlimid administered at 10 mg daily on a 21/28 day schedule, and with dexamethasone administered weekly. She began cycle 7 on 03/05/2018. Her serum protein electrophoresis at that point did show a significant decrease in the M protein, to 1.41 g/dL. She then continued treatment at the same dosages, but intermittently she still had moderately severe neutropenia. She had otherwise been tolerating the treatment well. She began her 10th cycle of treatment on 05/30/2018. At that point her M protein had stabilized at just over 1 g/dL. She appeared stable clinically, and restaging PET/CT showed only mild FDG activity in the T1 lesion. There were no other areas of FDG uptake, and there was no significant change compared to the prior study in May 2017. As on 07/20/2018 her repeat protein electrophoresis showed a significant increase in the M protein to 1.4 g/dL, and her free light chain assay showed an increase in the kappa/lambda ratio to28.90. With those findings, she was advised to proceed with second line treatment. She indicated that she preferred not to have any IV medication. As such, on 08/29/2018 she began a trial of therapy with Revlimid/ixazomib/dexamethasone. Due to her previous toxicities, the Revlimid was initiated at a reduced dosage of 10 mg daily on a 21/28 day schedule. As of October 2018, following 3 cycles of treatment, her M protein had stabilized at 1.0 g/dL. She continued her same treatment, and as of 01/24/2019 her M protein and her free light chain had remained stable. Her clinical status at that time also appeared stable, and she continued treatment with Revlimid, ixazomib, and dexamethasone at the same dosages. As of 04/22/2019 her protein electrophoresis showed M protein stable at 0.9 g/dL, but her free light chain assay continued to show elevated kappa/lambda ratio at 15.37. Her quantitative immunoglobulin levels showed IgG 1165 mg/dL with IgA low at 10 mg/dL and IgM low at 17 mg/dL. Her CBC showed stable hemoglobin at 12 g, but her ANC was low at 700. As of 05/06/2019 her treatment was put on hold due to persistent neutropenia. Her 24 hour urine protein electrophoresis showed no monoclonal protein. As of her follow-up visit in June 2019 there was evidence of disease progression with significant increase in her M protein and and her kappa free light chain. Her restaging PET/CT showed stable findings at the T1 vertebral body lesion and no evidence of any new lesions. With those findings, she began third line treatment with daratumumab/carfilzomib/dexamethasone on 08/12/2019. She has now completed 1 cycle of treatment. She tolerated her day 1/day 2 treatments very well. She developed mulitple side effects following her day 8 treatment, which she attibuted to the daratumumab. She was able to complete her day 9 carfilzomib treatment. Her day 15/16 treatment was withheld due to neutropenia, ANC 1000. She completed her week 3 daratumumab the following week, but with the dosage split over 2 days. She tolerated it without adverse effects. On 09/11/2019 continued with cycle 2 of daratumumab/carfilzomib/dexamethasone with the carfilzomib administered at a reduced dosage and with the daratumumab administered in a split dosage. She continued to have anemia, moderately severe neutropenia, and mild thrombocytopenia, but she was able to tolerate the treatment with acceptable toxicity. She has had some evidence of response, though not dramatic, with her repeat protein electrophoresis on 10/02/2019 showing decline in the M protein, to 1.1 g/dL. She proceeded with cycle 3 on 10/09/2019. Her blood counts remain adequate, and her clinical status appears stable. Ms. Armenta presents today for treatment with carfilzomib and daratumumab. She has experienced significant shortness of breath since her last treatment. She states she does feel it is the chemo as she only had the carfilzomib presented last week and the shortness of breath was pretty significant after that treatment. The carfilzomib will be placed on hold and we will work-up her shortness of breath with a CTA and an echocardiogram today if possible. We will plan to proceed with the daratumumab. Plan: 1. obtain CTA with contrast for evaluation of possible pulmonary embolus. 2. Obtain followup echocardiogram with comparison to study from July 23, 2019. Normal LVEF in July 2019. 3. Plan for hydration after CTA due to contrast. 4. Today's labs reviewed in detail and discussed with Ms. Alvarado and a copy was given to her. WBC 2.6, hemoglobin 9.1, platelets 108,000, ANC is 1400. Creatinine is 0.7 LFTs are normal random glucose is 104. 5. I have requested follow-up TSH and free T4 to be added to blood in lab for evaluation of fatigue. 6. Plan to hold carfilzomib (due to respiratory symptoms) but continue with every 2 week daratumumab. She is due today. 7. She will be due for repeat SPEP with CLARY and Quigs at her followup in 2 weeks. 8. Ms Armenta was instructed to call us in the interim if questions or problems arise. Signed By: Say Castillo-REGINA, AOCAYLAP Sean Sanchez MD <<Signature on File>>
[2019-10-22] MEDS: acetaminophen 325 mg Tablet 650 MG PO (13:25)
[2019-10-22] MEDS: sodium chloride 0.9% 500 ML 999 ML IV (13:44)
[2019-10-22 13:53] LABS: Free T4 Free Thyroxine 1.36 ng/dL (0.82-1.77); Thyroid Stimulating Hormone 2.94 uIU/mL (0.27-4.20)
--- NOTE | 2019-10-22 16:46 | ONC FU_ITS ---
[facility] Patient Note Patient: Karely Armenta Unit #: [id number]: [id number] Dictated By: Say CastilloDate of Visit: Oct 22, 2019 Onc MED ADDENDUM Note DATE OF ADDENDUM: [10/22/2019] ADDENDUM: [Mrs. 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 Dr. Davis, the radiologist, had indicated that this was more so early disease but nonetheless there was ultra perfusion seen in both areas. She is currently on Plavix for coronary artery disease. We have advised her to go ahead and start Eliquis as well. She will continue both agents. She has been informed of increased risk of bleeding. She states she will watch that very closely. A starter pack was sent to alternate [facility] and she will pick that up tomorrow. She did receive a coupon for free 30-day supply. We will attempt around the 90-day supply of the Eliquis to [facility] when she completes that 30-day packet. She was given additional hydration with her Darzalex today as she had had CT dye for the CTA. She verbalized understanding has no further questions at this time.] Almit[facility], OKSANA-[place], AOP Sean Sanchez MD
== END 2019-10-22 08:16 | disposition home or self-care (01) ==
LOC: ONCMED 08:18
PROVIDERS: PCP Internal Medicine; Visit Provider Nurse Practitioner
DX: Z51.12 Encounter for antineoplastic immunotherapy (principal); C90.00 Multiple myeloma not having achieved remission; D47.2 Monoclonal gammopathy; D70.1 Agranulocytosis secondary to cancer chemotherapy; T45.1X5A Adverse effect of antineoplastic and immunosuppressive drugs, initial encounter; F41.9 Anxiety disorder, unspecified; F32.9 Major depressive disorder, single episode, unspecified; G43.909 Migraine, unspecified, not intractable, without status migrainosus; I25.10 Atherosclerotic heart disease of native coronary artery without angina pectoris; M79.7 Fibromyalgia; K21.9 Gastro-esophageal reflux disease without esophagitis; I10 Essential (primary) hypertension; E03.9 Hypothyroidism, unspecified
CPT/HCPCS: 80053; 84439; 84443; 85025; 96361; 96367; 96413; 96415; 99214; J1200; J2405; J7040; J9145

== ENCOUNTER 2019-10-22 11:27 | Outpatient (CLI) | payer MEDICARE, SELFPAY ==
--- NOTE | 2019-10-22 11:41 | CT_ITS ---
WS: [id number] CT angio chest PE protcl [id number] REASON FOR EXAM: NEW ONSET DYSPNEA WORSE W/EXERTION MULTIPLE MYELOMA TECHNIQUE: Coronal and sagittal 2-D and MIP reformations. IV CONTRAST ADMINISTERED: Omnipaque 350, 71 mL. TOTAL EXAM DLP: 535.[address] scans at [facility] use at least one of these dose optimization techniques: automat ed exposure control; mA and/or kV adjustment per patient size (includes targeted exams where dose is matched to clinical indication); or iterative reconstruction. FINDINGS: After the bolus injection of contrast small filling defects are noted in both the right and left secondary pulmonary arteries consistent with thromboembolic disease. Altered perfusion is also seen in these areas. No macro grow lesions are seen. The heart is normal in the heart chambers normal. The aorta was normal both right and left in normal descending aorta. The liver was normal with no infiltrating changes. We recommend the patient received hydration due to the contrast given. The adrenal glands were normal. 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
--- NOTE | 2019-10-22 11:41 | USCV_ITS ---
Karely Armenta Age: 69 Gender: F : 1950 Exam Date: 10/22/2019 11:58 Ordering Phys: Almita Whitehead NP Technologist: Leann Gonzalez [place] [facility] [place]: CHEMO TREATMENT AND NOW VERY SOB BP: / HR: 61 Rhythm: Sinus Technical Quality: Good MEASUREMENTS (Male / Female) Normal Values 2D ECHO LV Diastolic Diameter PLAX 3.8 cm 4.2 - 5.9 / 3.9 - 5.3 cm LV Systolic Diameter PLAX 2.1 cm LV Chamber Size 3.5 cm IVS Diastolic Thickness 1.3 cm 0.6 - 1.0 / 0.6 - 0.9 cm IVS Systolic Thickness 1.8 cm LVPW Diastolic Thickness 1.5 cm 0.6 - 1.0 / 0.6 - 0.9 cm LVPW Systolic Thickness 1.7 cm RV Chamber Size 3.1 cm LVOT Diameter 2.1 cm LV Ejection Fraction 2D Teich 77.1 % LV Ejection Fraction MOD 2C 52.0 % LV Ejection Fraction 2C AL 57.0 % LA Diameter 4.0 cm LA Width 3.4 cm LA Height 4.9 cm RA Width 3.7 cm RA Height 5.3 cm Aorta at Sinotubular Diameter 3.0 cm DOPPLER TR Peak Velocity 300.3 cm/s TR Peak Gradient 36.1 mmHg TR Mean Velocity 228.2 cm/s TR Mean Gradient 23.6 mmHg TR Velocity Time Integral 122.7 cm FINDINGS Left Ventricle Normal left ventricular size and systolic function, EF 57 %. No gross wall motion abnormalities. Right Ventricle Normal right ventricular size and systolic function. Right Atrium Normal right atrial size. Left Atrium Mildly increased left atrial size. Mitral Valve Thickened mitral valve. Aortic Valve No gross abnormalities noted Tricuspid Valve [id number] tricuspid valve regurgitation. Estimated pulmonary artery peak systolic pressure of 41 mmHg Pulmonic Valve No gross abnormalities noted Pericardium Normal pericardium without effusion. Aorta Normal ascending aorta dimension. CONCLUSIONS Normal left ventricular size and systolic function, EF 57 %. No gross wall motion abnormalities. Mildly increased left atrial size. Thickened mitral valve. [id number] tricuspid valve regurgitation. Estimated pulmonary artery peak systolic pressure of 41 mmHg. There is no pericardial effusion. There are no intracardiac masses. Compared to the previous study from 07/23/2019, there may not be a significant change in the 2D findings Dr Terry Melton MD FAC (Electronically Signed) Final Date: 22 October 2019 20:51 S
[2019-10-22] MEDS: iohexol 350 mg/mL 100 mL Btl IV (12:33)
== END 2019-10-22 11:28 | disposition home or self-care (01) ==
LOC: RAD 11:33
PROVIDERS: PCP Internal Medicine; Visit Provider Nurse Practitioner
DX: R06.02 Shortness of breath (principal); Z79.899 Other long term (current) drug therapy; I05.9 Rheumatic mitral valve disease, unspecified; R06.00 Dyspnea, unspecified
CPT/HCPCS: 71275; 93308

== ENCOUNTER 2019-11-06 08:32 | Outpatient (CLI) | payer MEDICARE, SELFPAY ==
[2019-11-06 09:07] LABS: Basophils % 0.3 %; Eosinophils % 1.2 %; Hemoglobin 10.9 g/dL (11.5-15.3); Lymphocytes # 1.4 10^3/uL (0.8-4.8); Lymphocytes % 42.8 %; Mean Corpuscular HGB Conc 32.1 g/dL (30.0-36.0); Mean Corpuscular Hemoglobin 31.2 pg (28.0-34.0); Mean Corpuscular Volume 97.4 fL (81-99); Mean Platelet Volume 9.9 fL (7.4-10.4); Monocytes # 0.2 10^3/uL (0.2-0.9); Monocytes % 7.2 %; Neutrophils # 1.6 10^3/uL (1.8-7.7); Neutrophils % 48.2 %; Nucleated Red Blood Cells % 0 %; Platelet Count 167 10^3/cmm (130-400); Red Blood Count 3.49 10^6/uL (4.1-5.3); Red Cell Distribution Width 13.1 % (12.1-15.1); White Blood Count 3.3 10^3/uL (4.0-10.0)
[2019-11-06 09:40] LABS: Alanine Aminotransferase 12 U/L (0-33); Albumin Level 4.2 g/dL (3.5-5.2); Alkaline Phosphatase 96 IU/L (35-105); Anion Gap 14.9 (5-19); Aspartate Amino Transferase 17 U/L (0-32); Blood Urea Nitrogen 9 mg/dL (8-23); Calcium 8.9 mg/dL (8.5-10.5); Carbon Dioxide 27 mmol/L (22-29); Chloride 101 mmol/L (98-107); Globulin 3.1 g/dL (1.3-4.6); Glucose 75 mg/dL (65-115); Osmolality Calculated 283 mOsm/kg (285-295); Potassium 3.9 mmol/L (3.5-5.1); Sodium 139 mmol/L (136-145); Total Bilirubin 0.3 mg/dL (0.15-1.2); Total Protein 7.3 g/dL (6.6-8.7)
[2019-11-06 10:01] LABS: Immunoglobulin IGA 50 mg/dL (70-400); Immunoglobulin IGG 1504 mg/dL (700-1600)
[2019-11-06] MEDS: acetaminophen 325 mg Tablet 650 MG PO (10:10)
[2019-11-06 10:22] LABS: Immunoglobulin IGM < 25 mg/dL (40-230)
[2019-11-06] MEDS: sodium chloride 0.9% 500 ML 999 ML IV (12:45)
[2019-11-07 07:10] LABS: PROTEIN, TOTAL 6.5 g/dL (6.1-8.1)
[2019-11-07 11:26] LABS: Beta-2-Microglobulin 3.69 mg/L (< OR = 2.51)
[2019-11-07 12:50] LABS: KAPPA LIGHT CHAIN, FREE, SERUM 100.6 mg/L (3.3-19.4); KAPPA/LAMBDA LIGHT CHAINS FREE 52.95 (0.26-1.65); LAMBDA LIGHT CHAIN, FREE, SERU 1.9 mg/L (5.7-26.3)
[2019-11-07 14:40] LABS: ABNORMAL PROTEIN BAND 1 1.2 g/dL (NONE DETECTED); ABNORMAL PROTEIN BAND 2 0.1 g/dL (NONE DETECTED); ALBUMIN 3.7 g/dL (3.8-4.8); ALPHA 1 GLOBULIN 0.3 g/dL (0.2-0.3); ALPHA 2 GLOBULIN 0.6 g/dL (0.5-0.9); BETA 1 GLOBULIN 0.4 g/dL (0.4-0.6); BETA 2 GLOBULIN 0.2 g/dL (0.2-0.5); GAMMA GLOBULIN 1.3 g/dL (0.8-1.7)
--- NOTE | 2019-11-10 12:18 | ONC FU_ITS ---
Dr. Sanchez Patient Follow-Up Note Patient: Karely Armenta Unit #: [id number]: 1950 Dicatated By: Sean Sanchez M.D.Date of Visit:Nov 06, 2019 Onc Med Follow-up/Prog Note Chief Complaint: Myeloma. History of Present Illness: This is a 69 year-old woman with IgG kappa myeloma. She was found to be moderately anemic in December 2016 when she was admitted to the hospital with pneumonia. She also reported having had an illness the preceding summer, in October or November, which may have been tick fever, but that was never confirmed. Her follow-up laboratory studies with Dr. Garcia on 05/03/2017 included CBC showing hemoglobin 11.9 g with white blood cell count 5100 and platelet count 155,000. Her sedimentation rate was significantly elevated at 94 mm/hour. The chem profile showed normal renal function with BUN 13 and creatinine 0.96 mg/dL. Calcium was normal at 9.0 mg/dL. The total protein was elevated at 9.0 g/dL with albumin 4.0 g/dL and calculated serum globulin elevated at 5.0 g/dL. Protein electrophoresis showed a monoclonal protein quantitating at 2.5 g/dL. Immunofixation showed an IgG kappa paraprotein measuring 2.87 g/dL. Hepatits screen was nonreactive to hepatitis C, hepatitis Bs antigen, and hepatitis B core total Ab referral. The hepatitis B surface antibody was < 3.10. LDH was normal at 149 U/L. The beta-2 microglobulin was slightly elevated at 0.420 mg/dL. I had seen her initially on 05/11/2017. Repeat protein electrophoresis with immunofixation prior to that visit, from 05/09/2017, showed IgG kappa monoclonal protein quantitating at 2.87 g/dL. The kappa light chain was elevated at 177.96 mg/L with lambda light chain 1.73 mg/L and kappa/lambda ratio elevated at 102. On her further evaluation there was no monoclonal protein detected in a 24-hour urine specimen. Skeletal survey on 05/11/2017 showed cervical and lumbar spondylosis and bilateral hip joint osteoarthritic changes. There was no radiographic evidence of multiple myeloma. She underwent bone marrow aspiration/biopsy on 05/17/2017. The cellularity was estimated at 70% with 32% plasma cells. Iron stores were noted to be absent. The FISH panel for myeloma showed gain of chromosome 1q, deletions of RB 1 and LAMP1, and gain of IG. The standard chromosome analysis was normal. Overall, the findings were consistent with plasma cell neoplasm/myeloma. Staging PET/CT on 06/03/2017 showed a single FDG avid osteolytic site in the T1 vertebral body which was felt to possibly represent multiple myeloma. She then had further evaluation with MRI of the spine on 07/12/2017. There were significant degenerative changes in the cervical spine which included moderate central canal stenosis at C4-C5, C5-C6, and C7 as well as bilateral nerve root encroachment at C5, C6, and C7. There were also degenerative changes in the lumbar spine with interval STIR signal abnormality and enhancement of T10-L5 spinous processes suggesting possible myelomatous changes. The thoracic spine showed subtle diffuse signal and enhancement abnormality involving the T1 vertebral body. In correlation with the PET/CT findings, this was felt to be suspicious for neoplastic process, including multiple myeloma. There were no actual lytic lesions identified. She had further laboratory evaluation on 07/26/2017. Her CBC at that point showed hemoglobin down slightly to 10.1 g with white blood cell count 3700 and platelet count 122,000. Chem profile showed borderline renal function with BUN 12 and creatinine 1.1 mg/dL and calculated GFR 49 mm/hour. Repeat protein electrophoresis showed M protein increased to 3.22 g/dL compared to 2.87 g/dL in April. Her quantitative immunoglobulin levels showed elevated IgG at 3800 mg/dL and IgA low at less than 8.00 and IgM low at 5.50 mg/dL. Her serum iron studies showed normal transferrin saturation at 30.9%, but ferritin was low at 14.4 ng/mL. B12 level was in low-normal range at 288 pg/mL. She is seen for a follow-up visit on 08/14/2017. At that point she did agree to begin treatment with Velcade/Revlimid/dexamethasone. She began her cycle 1 of Velcade/Revlimid/dexamethasone on 09/11/2017. At that time she also began prophylaxis with Bactrim and acyclovir. When she returned for her day 4 Velcade injection, she had developed a significant skin eruption, and she was advised to stop both the Revlimid and the Bactrim. At day 8 she had a reduction in the Velcade dosage to 1.0 mg/m???, as her neutrophil count had dropped to 800 and she also was experiencing some neuropathy. The Revlimid remained on hold. As of 10/17/2017 the ANC was still only 700, and I did opt to delay her 2nd cycle of treatment. Her repeat protein electrophoresis from 10/09/2017 did show a decline in her M protein to 2.71 g/dL compared to a pretreatment level of 3.73 g/dL. She eventually continued with cycle 2 on 10/23/2017 with the Velcade dosage reduced at 1.0 mg/m???. The Revlimid dosage was reduced to 10 mg. Despite the reductions, her cycle 3 was delayed again due to neutropenia. Her repeat protein electrophoresis on 11/20/2017 showed essentially stable M protein level at 2.77 g/dL. She continued with cycle 3 on 12/04/2017. Her neutrophil count at that point was back up to 1900. With that cycle she stopped Revlimid after 1 day and her day for Velcade was held due to multiple symptoms including sore throat, swelling in her throat, hoarseness, and cough. She did receive day 8 Velcade, but her day 11 treatment also was held. She eventually did continue with a 4th cycle of treatment on 12/26/2017 and with the 5th cycle on a 01/16/2018, but with both of those she showed up for only 3 of her scheduled Velcade injections. As of cycle 5 her M protein was still basically stable at 2.82 g/dL. Beginning with cycle 6 her treatment was changed to a 28 day cycle with Velcade administered on days 1, 8, and 15, with Revlimid administered on a day schedule, and with dexamethasone administered weekly. With that change her compliance improved. As of 03/05/2018 she began her 7th cycle of treatment. At that point her serum protein electrophoresis had shown a significant decline in the M protein, to 1.41 g/dL. With continued treatment there was further decline in the M protein. As of 05/08/2018 on day 8 of cycle 9 it had decreased to 0.84 g/dL. However, at day 1 of cycle 10 on 05/30/2018 it increased slightly to 1.11 g/dL. At cycle 10 day 22 on 06/19/2018 it had stabilized at 1.09 g/dL. Restaging PET/CT on 06/23/2018 showed the T1 lesion to be weakly FDG positive and unchanged from the previous study in May 2017. Given those findings, I did opt to put her further treatment on hold. Her repeat protein electrophoresis on 07/20/2018 showed an increase in the M protein to 1.4 g/dL. The free light chain assay showed elevated kappa light chain at 83.8 mg/L with lambda light chain 2.9 mg/L and elevated kappa/lambda ratio at 28.90. With those findings, she was advised to continue to second line treatment. She had indicated that she preferred not to be on any type of IV infusion. As such, I recommend a trial of therapy with Revlimid/ixazomib/dexamethasone. She began cycle 1 of Revlimid/ixazomib/dexamethasone on 08/29/2018. Due to her previous toxicities with Revlimid, it was initiated at a reduced dosage of 10 mg daily on a 21/28 day schedule with ixazomib dosed at 4 mg on days 18 and 15 and the dexamethasone dose at 40 mg weekly. She was able to tolerate it with acceptable toxicity, and she continued with cycle 2 on 09/26/2018 and with cycle 3 on 10/25/2018. Her repeat protein electrophoresis in September did show some decline in the M protein, to 1.0 g/dL. It then stabilized, and she continued her same treatment. As of 01/24/2019 the protein electrophoresis showed her quantitative M protein at 1.1 g/dL. The free light chain assay showed kappa light chain elevated at 105.1 mg/L, lambda light chain 7.0 mg/L, and elevated kappa/lambda ratio at 15.01. She continued treatment with Revlimid/ixazomib/dexamethasone. As of 04/22/2019 her protein electrophoresis showed M protein stable at 0.9 g/dL, but her free light chain assay continued to show elevated kappa/lambda ratio at 15.37. Her quantitative immunoglobulin levels showed IgG 1165 mg/dL with IgA low at 10 mg/dL and IgM low at 17 mg/dL. Her CBC showed stable hemoglobin at 12 g, but her ANC was low at 700. As of 05/06/2019 her treatment was put on hold due to persistent neutropenia. Her 24 urine protein electrophoresis showed no monoclonal protein. Her other medical illnesses include hypertension, hyperlipidemia, coronary artery disease, hypothyroidism, GERD, fibromyalgia, degenerative arthritis, and anxiety/depression. Her surgical/procedural history includes coronary angioplasty/stent placement 2015. She has arthroscopic left knee surgery, and she also has had surgery on the right shoulder. She has history of smoking for 25 years, from 1-3 packs of cigarettes daily. She quit smoking in 1989. She has had just occasional alcohol use. She is [employer], and she will not accept blood products. INTERIM HISTORY: In May 2019 she had taken a trip to [place], and while she was there she became very ill and required treatment for pneumonia. She returned here for a follow-up visit in June. Her repeat protein electrophoresis on 07/02/2019 showed increase in the M protein to 2.0 g/dL. Her free light chain assay showed increased kappa light chain to 142 mg/L with lambda light chain 2.9 mg/L, and elevated kappa/lambda ratio at 49.38. Restaging PET/CT on 07/13/2019 showed stable findings in the T1 lesion with FDG activity no greater than that of marrow background, consistent with successfully treated disease. There was no evidence of any new lesions. However, with the significant increase in the M protein and in the kappa free light chain, she was recommended to proceed with third line treatment with daratumumab in combination with carfilzomib and dexamethasone. She underwent placement of Port-A-Cath venous access device in preparation for that treatment. Her baseline echocardiogram showed normal left ventricular function with ejection fraction estimated at 60%. She returned to begin cycle 1 of daratumumab/carfilzomib/dexamethasone on 08/12/2019. The initial infusion of daratumumab was administered in divided doses over 2 days. She tolerated the treatment well. However, her day 8 treatment was complicated by nausea and profuse diaphoresis, which she attributed to the daratumumab. She was able to complete her day 9 carfilzomib treatment. Her day 15/16 treatment was withheld due to a drop in her white blood cell count to 2000 with her ANC at 1000. She did not have fever or other complications. She was given her week 3 daratumumab the following week, but I did opt to split the dosage over 2 days. She tolerated it with no adverse effects. She continued with cycle 2 on 09/11/2019 with the carfilzomib administered at a reduced dosage and with the daratumumab administered in a split dosage. She continued to have anemia, moderately severe neutropenia, and mild thrombocytopenia, but she was able to tolerate the treatment with acceptable toxicity. As of 10/02/2019 the M protein had decreased to 1.1 g/dL. She proceeded with cycle 3 on 10/09/2019. At cycle 3-day 15, on 10/22/2019, her carfilzomib was omitted due to neutropenia, ANC 1400. She did receive her 8th weekly infusion of daratumumab, administered as a single infusion. At that time she also was complaining increased shortness of breath, and a CT pulmonary angiogram showed small filling defects in both the right and left secondary pulmonary arteries consistent with thromboembolic disease. Altered perfusion was seen in those areas. As it did appear to be clinically significant, she was started on anticoagulation with apixaban. She is seen for a followup visit. She has been feeling somewhat better since she has been on anticoagulation. She is still a little bit tired, but she is not having as much shortness of breath. Her ECOG score is 1. She has good appetite. She has no fever or night sweats. She does not complain of cough. She still has pain occasionally in her left lower chest/left upper quadrant area when she takes a deep breath. She has not had any typical angina pain, she does occasionally have palpitations. She has no GI or complaints. She does have some aching, mainly in the lower back and hips, and also in the right groin/right thigh area. She has had mild headaches. She has some numbness/tingling, but not as often. Medications: amLODIPine Besylate 1 Tablet (of 5 mg) Oral daily, Body/Hair/Skin/Nails 2 Capsule Oral daily, Mcndlfsgtq-CIRE-Uakx-Cod 1 (91-166-35-30 mg) Capsule Oral four times a day PRN, Cholecalciferol 2 (1000 Units) Capsule Oral daily, Curcumin 95 1 (500 mg) Capsule Oral daily PRN, Cymbalta 1 (60 mg) Capsule Delayed Release Particles Oral daily, Eliquis 1 Tablet (of 5 mg) Oral b.i.d., Furosemide 1 Tablet (of 20 mg) Oral daily PRN, Levothyroxine Sodium 1 (50 mcg) Tablet Oral daily, Lisinopril 1 (25 mg) Tablet Oral daily, LORazepam 0.5 - 1 (1 mg) Tablet Oral q 4 hours PRN, Multivitamin Adult 1 Tablet Oral daily, Nitroglycerin 1 (400 mcg/spray) Aerosol, solution Translingual PRN, OxyCODONE HCl 1 (30 mg) Tablet Oral 5x/d PRN, Pantoprazole Sodium 1 Tablet (of 40 mg) Tablet, enteric coated Oral daily, Plavix 1 (75 mg) Tablet Oral daily, Potassium Chloride ER 1 Tablet (of 10 meq) Tablet, controlled release Oral daily PRN, Pravastatin Sodium 1 (40 mg) Tablet Oral daily, Prochlorperazine Maleate 1 (10 mg) Tablet Oral four times a day PRN, QUEtiapine Fumarate 2 Tablet (of 25 mg) Oral at bedtime, Soma 1 (350 mg) Tablet Oral four times a day PRN Allergies: Codeine Sulfate, LevoFLOXacin, and Vicodin. Review of Systems: Constitutional - She is generally feeling okay. She does feel more tired. Her appetite is good and her weight is down 7 pounds since last visit. No fever, night sweats, or hot flashes. ECOG score is 1, ENMT - No sinus congestion/drainage. No mouth sores. No sore throat or difficulty swallowing, Hematologic/Lymphatic - She bruises easily, Respiratory - Her shortness of breath has improved. No cough. No pleuritic pain or hemoptysis. She has some left rib pain with inspiration, Cardiovascular - No angina pain. No palpitations, Gastrointestinal - No nausea or vomiting. No heartburn or acid reflux. No diarrhea or constipation. No blood in the stool or black stools, Genitourinary (F) - No dysuria or hematuria. No urinary frequency. No urgency or incontinence, Musculoskeletal - She continues to have pain in her lower back and hips. She is also having pain in her right shoulder, Integumentary - No skin complications, Neurologic - She's had a few mild headaches. No dizziness. Her neuropathy has improved. No other focal neurologic symptoms, Psychiatric - No anxiety or depression. No insomnia. Vital Signs: Performed on Nov 06, 2019 13:34 Height - 66.00 in Temperature - 97.6 F (LOW) Pulse - 76 /min Respiration - 18 /min BP - 123/69 mm(hg) O2 Sat - 96 % Pain - 0 Fatigue - 0 Performed on Nov 06, 2019 09:19 Height - 66.00 in Weight - 152.6 lbs (LOW) BSA - 1.78 sq.m BMI - 24.63 Temperature - 98.0 F (LOW) Pulse - 65 /min Respiration - 18 /min BP - 124/74 mm(hg) O2 Sat - 98 % Pain - 5 Physical Examination: Constitutional - She looks pretty good generally, Eyes - Sclerae nonicteric. Conjunctivae clear, ENMT - No lesions noted in the oral cavity, Hematologic/Lymphatic - No cervical, clavicular, or axillary adenopathy, Respiratory - Lungs are clear with good air movement bilaterally, Cardiovascular - Heart rhythm is regular. There is no murmur, gallop, or rub noted, Abdomen - Soft. Liver and spleen are not enlarged. There is no abdominal mass or ascites noted and there is no inguinal adenopathy, Extremities - No edema. She now has just scattered ecchymoses, Neurologic - No focal neurologic deficits noted. Lab/Imaging: Test performed on Nov 06, 2019 08:45 Sodium 139 mmol/L Potassium 3.9 mmol/L Chloride 101 mmol/L CO2 27 mmol/L Anion Gap 14.9 BUN 9 mg/dL Creatinine 0.7 mg/dL Cr Clearance (Est) 91.1400 mL/min eGFR 83.0 mL/min Glucose 75 mg/dL Calcium 8.9 mg/dL Protein, Total 7.3 g/dL Albumin 4.2 g/dL Globulin 3.1 g/dL Bilirubin, Total 0.3 mg/dL ALT (SGPT) 12 U/L AST (SGOT) 17 U/L Alkaline Phosphatase 96 IU/L WBC 3.3 10 3/uL RBC 3.49 10 6/uL HGB 10.9 g/dL HCT 34.0 % MCV 97.4 fL MCH 31.2 pg MCHC 32.1 g/dL RDW 13.1 % Platelet Count 167 10 3/cmm MPV 9.9 fL Neutrophils 1.6 10 3/uL Lymphocytes 1.4 10 3/uL Monocytes 0.2 10 3/uL Eosinophils 0.0 10 3/uL Basophils 0.0 10 3/uL Neutrophil % 48.2 % Lymphocyte % 42.8 % Monocyte % 7.2 % Eosinophil % 1.2 % Basophils % 0.3 % NRBC % 0 % IgG 1504 mg/dL IgA 50 mg/dL IgM < 25 mg/dL Impression: 1. Patient with IgG kappa myeloma. Bone marrow aspiration/biopsy on 05/17/2017 showed 32% plasma cells, consistent with myeloma. The FISH panel showed gain of chromosome 1q, deletions of RB 1 and LAMP1, and gain of IG. Her baseline M protein was 2.87 g/dL. She was mildly anemic and she had significantly elevated sedimentation rate. She had normal renal function and negative 24-hour urine protein electrophoresis. Skeletal survey showed no lytic bone involvement. PET/CT and MRI both showed findings suspicious for involvement of the T1 vertebral body. She does not appear to be overtly symptomatic with it. 2. Her bone marrow also showed absent storage iron. Her other medical illnesses include: 3. Hypertension. 4. Hyperlipidemia. 5. Coronary artery disease with angioplasty/stent placement in February 2016. 6. Hypothyroidism. 7. GERD. 8. Degenerative arthritis/degenerative disease of the spine. 9. Fibromyalgia. 10. Anxiety/depression. She has been undergoing treatment with Velcade/Revlimid/dexamethasone, cycle 1 beginning on 09/11/2017. Overall, her treatment was very suboptimal due in part to multiple side effects which included skin eruption and neutropenia, among others. Compliance also had been somewhat of an issue. Beginning with her 6th cycle of treatment, on 02/05/2018, her treatment was changed to a 28 day schedule with Velcade administered at a reduced dosage on days 1, 8, and 15, with Revlimid administered at 10 mg daily on a 21/28 day schedule, and with dexamethasone administered weekly. She began cycle 7 on 03/05/2018. Her serum protein electrophoresis at that point did show a significant decrease in the M protein, to 1.41 g/dL. She then continued treatment at the same dosages, but intermittently she still had moderately severe neutropenia. She had otherwise been tolerating the treatment well. She began her 10th cycle of treatment on 05/30/2018. At that point her M protein had stabilized at just over 1 g/dL. She appeared stable clinically, and restaging PET/CT showed only mild FDG activity in the T1 lesion. There were no other areas of FDG uptake, and there was no significant change compared to the prior study in May 2017. As on 07/20/2018 her repeat protein electrophoresis showed a significant increase in the M protein to 1.4 g/dL, and her free light chain assay showed an increase in the kappa/lambda ratio to28.90. With those findings, she was advised to proceed with second line treatment. She indicated that she preferred not to have any IV medication. As such, on 08/29/2018 she began a trial of therapy with Revlimid/ixazomib/dexamethasone. Due to her previous toxicities, the Revlimid was initiated at a reduced dosage of 10 mg daily on a 21/28 day schedule. As of October 2018, following 3 cycles of treatment, her M protein had stabilized at 1.0 g/dL. She continued her same treatment, and as of 01/24/2019 her M protein and her free light chain had remained stable. Her clinical status at that time also appeared stable, and she continued treatment with Revlimid, ixazomib, and dexamethasone at the same dosages. As of 04/22/2019 her protein electrophoresis showed M protein stable at 0.9 g/dL, but her free light chain assay continued to show elevated kappa/lambda ratio at 15.37. Her quantitative immunoglobulin levels showed IgG 1165 mg/dL with IgA low at 10 mg/dL and IgM low at 17 mg/dL. Her CBC showed stable hemoglobin at 12 g, but her ANC was low at 700. As of 05/06/2019 her treatment was put on hold due to persistent neutropenia. Her 24 hour urine protein electrophoresis showed no monoclonal protein. As of her follow-up visit in June 2019 there was evidence of disease progression with significant increase in her M protein and and her kappa free light chain. Her restaging PET/CT showed stable findings at the T1 vertebral body lesion and no evidence of any new lesions. With those findings, she began third line treatment with daratumumab/carfilzomib/dexamethasone on 08/12/2019. She has now completed 1 cycle of treatment. She tolerated her day 1/day 2 treatments very well. She developed mulitple side effects following her day 8 treatment, which she attibuted to the daratumumab. She was able to complete her day 9 carfilzomib treatment. Her day 15/16 treatment was withheld due to neutropenia, ANC 1000. She completed her week 3 daratumumab the following week, but with the dosage split over 2 days. She tolerated it without adverse effects. On 09/11/2019 continued with cycle 2 of daratumumab/carfilzomib/dexamethasone with the carfilzomib administered at a reduced dosage and with the daratumumab administered in a split dosage. She continued to have anemia, moderately severe neutropenia, and mild thrombocytopenia, but she was able to tolerate the treatment with acceptable toxicity. She has had some evidence of response, though not dramatic, with her repeat protein electrophoresis on 10/02/2019 showing decline in the M protein, to 1.1 g/dL. She proceeded with cycle 3 on 10/09/2019. Her blood counts at that point had remained adequate, and her clinical status appeared stable. At cycle 3-day 15 her carfilzomib was omitted due to neutropenia, ANC 1400. She did receive her 8th weekly daratumumab infusion, administered as a single dose. At that time she complained of increased shortness of breath, and she was found on pulmonary angiogram to have bilateral pulmonary emboli. She is now on anticoagulation with apixaban. She continues to have moderately severe neutropenia. She otherwise appears stable clinically. Plan: She will proceed with cycle 4 of daratumumab in combination with carfilzomib/dexamethasone. The dosages will remain the same. She continues anticoagulation with apixaban 5 mg twice daily. With her known coronary disease, she also is going to continue treatment with Plavix. She will return in 1 week for day 8/day 9 carfilzomib. Her daratumumab is now being administered at 2-week intervals. She will be scheduled for a follow-up visit at day 15. Signed By: Sean Sanchez M.D. <<Signature on File>>
== END 2019-11-06 08:33 | disposition home or self-care (01) ==
LOC: ONCMED 08:34
PROVIDERS: PCP Internal Medicine; Visit Provider Internal Medicine Medical Oncology
DX: Z51.12 Encounter for antineoplastic immunotherapy (principal); Z51.11 Encounter for antineoplastic chemotherapy; C90.00 Multiple myeloma not having achieved remission; D70.1 Agranulocytosis secondary to cancer chemotherapy; T45.1X5A Adverse effect of antineoplastic and immunosuppressive drugs, initial encounter; I26.99 Other pulmonary embolism without acute cor pulmonale; I10 Essential (primary) hypertension; E78.5 Hyperlipidemia, unspecified; I25.10 Atherosclerotic heart disease of native coronary artery without angina pectoris; E03.9 Hypothyroidism, unspecified; K21.9 Gastro-esophageal reflux disease without esophagitis; M19.90 Unspecified osteoarthritis, unspecified site; M47.9 Spondylosis, unspecified; M79.7 Fibromyalgia; F41.8 Other specified anxiety disorders; Z79.899 Other long term (current) drug therapy; Z79.01 Long term (current) use of anticoagulants; Z79.02 Long term (current) use of antithrombotics/antiplatelets
CPT/HCPCS: 80053; 82232; 82784; 83883; 84155; 84165; 85025; 96361; 96367; 96413; 96415; 96417; 99214; J1200; J2405; J7040; J9047; J9145

== ENCOUNTER 2019-11-07 09:01 | Outpatient (CLI) | payer MEDICARE, SELFPAY ==
[2019-11-07] MEDS: dexamethasone 4 mg Tablet 20 MG PO (09:17)
[2019-11-07] MEDS: acetaminophen 325 mg Tablet 650 MG PO (09:20)
[2019-11-07] MEDS: sodium chloride 0.9% 500 ML 75 ML IV (09:25)
[2019-11-07] MEDS: palonosetron 0.25 mg/5 mL SDV IV (09:48)
== END 2019-11-07 09:02 | disposition home or self-care (01) ==
LOC: ONCMED 09:04
PROVIDERS: PCP Internal Medicine; Visit Provider Internal Medicine Medical Oncology
DX: Z51.12 Encounter for antineoplastic immunotherapy (principal); C90.00 Multiple myeloma not having achieved remission; D47.2 Monoclonal gammopathy; D70.1 Agranulocytosis secondary to cancer chemotherapy; F41.9 Anxiety disorder, unspecified; F32.9 Major depressive disorder, single episode, unspecified; M54.5 Low back pain; G43.909 Migraine, unspecified, not intractable, without status migrainosus; I25.10 Atherosclerotic heart disease of native coronary artery without angina pectoris; M79.7 Fibromyalgia; K21.9 Gastro-esophageal reflux disease without esophagitis; I10 Essential (primary) hypertension; E03.9 Hypothyroidism, unspecified
CPT/HCPCS: 96361; 96367; 96375; 96413; J1200; J2469; J7040; J8540; J9047

== ENCOUNTER 2019-11-13 09:27 | Outpatient (CLI) | payer MEDICARE, SELFPAY ==
[2019-11-13] MEDS: acetaminophen 325 mg Tablet 650 MG PO (09:30)
[2019-11-13 09:54] LABS: Basophils % 0.3 %; Eosinophils # 0.1 10^3/uL (0.0-0.8); Hematocrit 30.9 % (37.0-47.0); Hemoglobin 9.9 g/dL (11.5-15.3); Lymphocytes # 1.5 10^3/uL (0.8-4.8); Lymphocytes % 41.8 %; Mean Corpuscular Volume 96.9 fL (81-99); Mean Platelet Volume 11.4 fL (7.4-10.4); Monocytes # 0.3 10^3/uL (0.2-0.9); Monocytes % 8.8 %; Neutrophils # 1.7 10^3/uL (1.8-7.7); Neutrophils % 47.1 %; Nucleated Red Blood Cells % 0 %; Platelet Count 108 10^3/cmm (130-400); Red Blood Count 3.19 10^6/uL (4.1-5.3); Red Cell Distribution Width 13.2 % (12.1-15.1); White Blood Count 3.5 10^3/uL (4.0-10.0)
[2019-11-13] MEDS: sodium chloride 0.9% 500 ML 75 ML IV (10:45)
== END 2019-11-13 09:28 | disposition home or self-care (01) ==
LOC: ONCMED 09:34
PROVIDERS: PCP Internal Medicine; Visit Provider Internal Medicine Medical Oncology
DX: Z51.11 Encounter for antineoplastic chemotherapy (principal); C90.00 Multiple myeloma not having achieved remission
CPT/HCPCS: 85025; 96361; 96367; 96413; J1200; J2405; J7040; J9047

== ENCOUNTER 2019-11-14 08:48 | Outpatient (CLI) | payer MEDICARE, SELFPAY ==
[2019-11-14] MEDS: sodium chloride 0.9% 500 ML 999 ML IV (09:00)
[2019-11-14] MEDS: palonosetron 0.25 mg/5 mL SDV IV (09:12)
== END 2019-11-14 08:49 | disposition home or self-care (01) ==
LOC: ONCMED 08:53
PROVIDERS: PCP Internal Medicine; Visit Provider Internal Medicine Medical Oncology
DX: C90.00 Multiple myeloma not having achieved remission (principal); D47.2 Monoclonal gammopathy; D70.1 Agranulocytosis secondary to cancer chemotherapy
CPT/HCPCS: 96361; 96367; 96375; 96413; J1200; J2469; J7040; J9047

== ENCOUNTER 2019-11-20 08:27 | Outpatient (CLI) | payer MEDICARE, SELFPAY ==
[2019-11-20 08:52] LABS: Eosinophils # 0.1 10^3/uL (0.0-0.8); Eosinophils % 1.6 %; Hemoglobin 10.3 g/dL (11.5-15.3); Lymphocytes # 1.2 10^3/uL (0.8-4.8); Lymphocytes % 39.4 %; Mean Corpuscular HGB Conc 31.2 g/dL (30.0-36.0); Mean Corpuscular Hemoglobin 30.5 pg (28.0-34.0); Mean Corpuscular Volume 97.6 fL (81-99); Mean Platelet Volume 11.4 fL (7.4-10.4); Monocytes # 0.3 10^3/uL (0.2-0.9); Monocytes % 10.2 %; Neutrophils # 1.5 10^3/uL (1.8-7.7); Neutrophils % 48.8 %; Nucleated Red Blood Cells % 0 %; Platelet Count 144 10^3/cmm (130-400); Red Blood Count 3.38 10^6/uL (4.1-5.3); Red Cell Distribution Width 13.8 % (12.1-15.1); White Blood Count 3.2 10^3/uL (4.0-10.0)
[2019-11-20 09:19] LABS: Alanine Aminotransferase 9 U/L (0-33); Albumin Level 4.2 g/dL (3.5-5.2); Alkaline Phosphatase 75 IU/L (35-105); Anion Gap 15.3 (5-19); Aspartate Amino Transferase 15 U/L (0-32); Blood Urea Nitrogen 9 mg/dL (8-23); Carbon Dioxide 26 mmol/L (22-29); Chloride 102 mmol/L (98-107); Globulin 2.6 g/dL (1.3-4.6); Glucose 91 mg/dL (65-115); Osmolality Calculated 284 mOsm/kg (285-295); Potassium 4.3 mmol/L (3.5-5.1); Sodium 139 mmol/L (136-145); Total Bilirubin 0.3 mg/dL (0.15-1.2); Total Protein 6.8 g/dL (6.6-8.7)
[2019-11-20] MEDS: sodium chloride 0.9% 1,000 ML 500 ML IV (10:35)
[2019-11-20] MEDS: acetaminophen 325 mg Tablet 650 MG PO (10:51)
--- NOTE | 2019-11-25 21:21 | ONC FU_ITS ---
[facility] Patient Note Patient: Karely Armenta Unit #: [id number]: 1950 Dictated By: Say CastilloDate of Visit: Nov 20, 2019 Onc MED Follow-Up/Prog Note Chief Complaint: Myeloma. History of Present Illness: Ms Armenta is a 69 year-old woman with IgG kappa myeloma. She was found to be moderately anemic in December 2016 when she was admitted to the hospital with pneumonia. She also reported having had an illness the preceding summer, in October or November, which may have been tick fever, but that was never confirmed. Her follow-up laboratory studies with Dr. Garcia on 05/03/2017 included CBC showing hemoglobin 11.9 g with white blood cell count 5100 and platelet count 155,000. Her sedimentation rate was significantly elevated at 94 mm/hour. The chem profile showed normal renal function with BUN 13 and creatinine 0.96 mg/dL. Calcium was normal at 9.0 mg/dL. The total protein was elevated at 9.0 g/dL with albumin 4.0 g/dL and calculated serum globulin elevated at 5.0 g/dL. Protein electrophoresis showed a monoclonal protein quantitating at 2.5 g/dL. Immunofixation showed an IgG kappa paraprotein measuring 2.87 g/dL. Hepatits screen was nonreactive to hepatitis C, hepatitis Bs antigen, and hepatitis B core total Ab referral. The hepatitis B surface antibody was < 3.10. LDH was normal at 149 U/L. The beta-2 microglobulin was slightly elevated at 0.420 mg/dL. Dr Sanchez had seen her initially on 05/11/2017. Repeat protein electrophoresis with immunofixation prior to that visit, from 05/09/2017, showed IgG kappa monoclonal protein quantitating at 2.87 g/dL. The kappa light chain was elevated at 177.96 mg/L with lambda light chain 1.73 mg/L and kappa/lambda ratio elevated at 102. On her further evaluation there was no monoclonal protein detected in a 24-hour urine specimen. Skeletal survey on 05/11/2017 showed cervical and lumbar spondylosis and bilateral hip joint osteoarthritic changes. There was no radiographic evidence of multiple myeloma. She underwent bone marrow aspiration/biopsy on 05/17/2017. The cellularity was estimated at 70% with 32% plasma cells. Iron stores were noted to be absent. The FISH panel for myeloma showed gain of chromosome 1q, deletions of RB 1 and LAMP1, and gain of IG. The standard chromosome analysis was normal. Overall, the findings were consistent with plasma cell neoplasm/myeloma. Staging PET/CT on 06/03/2017 showed a single FDG avid osteolytic site in the T1 vertebral body which was felt to possibly represent multiple myeloma. She then had further evaluation with MRI of the spine on 07/12/2017. There were significant degenerative changes in the cervical spine which included moderate central canal stenosis at C4-C5, C5-C6, and C7 as well as bilateral nerve root encroachment at C5, C6, and C7. There were also degenerative changes in the lumbar spine with interval STIR signal abnormality and enhancement of T10-L5 spinous processes suggesting possible myelomatous changes. The thoracic spine showed subtle diffuse signal and enhancement abnormality involving the T1 vertebral body. In correlation with the PET/CT findings, this was felt to be suspicious for neoplastic process, including multiple myeloma. There were no actual lytic lesions identified. She had further laboratory evaluation on 07/26/2017. Her CBC at that point showed hemoglobin down slightly to 10.1 g with white blood cell count 3700 and platelet count 122,000. Chem profile showed borderline renal function with BUN 12 and creatinine 1.1 mg/dL and calculated GFR 49 mm/hour. Repeat protein electrophoresis showed M protein increased to 3.22 g/dL compared to 2.87 g/dL in April. Her quantitative immunoglobulin levels showed elevated IgG at 3800 mg/dL and IgA low at less than 8.00 and IgM low at 5.50 mg/dL. Her serum iron studies showed normal transferrin saturation at 30.9%, but ferritin was low at 14.4 ng/mL. B12 level was in low-normal range at 288 pg/mL. She is seen for a follow-up visit on 08/14/2017. At that point she did agree to begin treatment with Velcade/Revlimid/dexamethasone. She began her cycle 1 of Velcade/Revlimid/dexamethasone on 09/11/2017. At that time she also began prophylaxis with Bactrim and acyclovir. When she returned for her day 4 Velcade injection, she had developed a significant skin eruption, and she was advised to stop both the Revlimid and the Bactrim. At day 8 she had a reduction in the Velcade dosage to 1.0 mg/m???, as her neutrophil count had dropped to 800 and she also was experiencing some neuropathy. The Revlimid remained on hold. As of 10/17/2017 the ANC was still only 700, and it was opted to delay her 2nd cycle of treatment. Her repeat protein electrophoresis from 10/09/2017 did show a decline in her M protein to 2.71 g/dL compared to a pretreatment level of 3.73 g/dL. She eventually continued with cycle 2 on 10/23/2017 with the Velcade dosage reduced at 1.0 mg/m???. The Revlimid dosage was reduced to 10 mg. Despite the reductions, her cycle 3 was delayed again due to neutropenia. Her repeat protein electrophoresis on 11/20/2017 showed essentially stable M protein level at 2.77 g/dL. She continued with cycle 3 on 12/04/2017. Her neutrophil count at that point was back up to 1900. With that cycle she stopped Revlimid after 1 day and her day for Velcade was held due to multiple symptoms including sore throat, swelling in her throat, hoarseness, and cough. She did receive day 8 Velcade, but her day 11 treatment also was held. She eventually did continue with a 4th cycle of treatment on 12/26/2017 and with the 5th cycle on a 01/16/2018, but with both of those she showed up for only 3 of her scheduled Velcade injections. As of cycle 5 her M protein was still basically stable at 2.82 g/dL. Beginning with cycle 6 her treatment was changed to a 28 day cycle with Velcade administered on days 1, 8, and 15, with Revlimid administered on a day schedule, and with dexamethasone administered weekly. With that change her compliance improved. As of 03/05/2018 she began her 7th cycle of treatment. At that point her serum protein electrophoresis had shown a significant decline in the M protein, to 1.41 g/dL. With continued treatment there was further decline in the M protein. As of 05/08/2018 on day 8 of cycle 9 it had decreased to 0.84 g/dL. However, at day 1 of cycle 10 on 05/30/2018 it increased slightly to 1.11 g/dL. At cycle 10 day 22 on 06/19/2018 it had stabilized at 1.09 g/dL. Restaging PET/CT on 06/23/2018 showed the T1 lesion to be weakly FDG positive and unchanged from the previous study in May 2017. Given those findings, Dr Sanchez did opt to put her further treatment on hold. Her repeat protein electrophoresis on 07/20/2018 showed an increase in the M protein to 1.4 g/dL. The free light chain assay showed elevated kappa light chain at 83.8 mg/L with lambda light chain 2.9 mg/L and elevated kappa/lambda ratio at 28.90. With those findings, she was advised to continue to second line treatment. She had indicated that she preferred not to be on any type of IV infusion. As such, Dr Sanchez recommend a trial of therapy with Revlimid/ixazomib/dexamethasone. She began cycle 1 of Revlimid/ixazomib/dexamethasone on 08/29/2018. Due to her previous toxicities with Revlimid, it was initiated at a reduced dosage of 10 mg daily on a 21/28 day schedule with ixazomib dosed at 4 mg on days 18 and 15 and the dexamethasone dose at 40 mg weekly. She was able to tolerate it with acceptable toxicity, and she continued with cycle 2 on 09/26/2018 and with cycle 3 on 10/25/2018. Her repeat protein electrophoresis in September did show some decline in the M protein, to 1.0 g/dL. It then stabilized, and she continued her same treatment. As of 01/24/2019 the protein electrophoresis showed her quantitative M protein at 1.1 g/dL. The free light chain assay showed kappa light chain elevated at 105.1 mg/L, lambda light chain 7.0 mg/L, and elevated kappa/lambda ratio at 15.01. She continued treatment with Revlimid/ixazomib/dexamethasone. As of 04/22/2019 her protein electrophoresis showed M protein stable at 0.9 g/dL, but her free light chain assay continued to show elevated kappa/lambda ratio at 15.37. Her quantitative immunoglobulin levels showed IgG 1165 mg/dL with IgA low at 10 mg/dL and IgM low at 17 mg/dL. Her CBC showed stable hemoglobin at 12 g, but her ANC was low at 700. As of 05/06/2019 her treatment was put on hold due to persistent neutropenia. Her 24 urine protein electrophoresis showed no monoclonal protein. Her other medical illnesses include hypertension, hyperlipidemia, coronary artery disease, hypothyroidism, GERD, fibromyalgia, degenerative arthritis, and anxiety/depression. Her surgical/procedural history includes coronary angioplasty/stent placement 2015. She has arthroscopic left knee surgery, and she also has had surgery on the right shoulder. She has history of smoking for 25 years, from 1-3 packs of cigarettes daily. She quit smoking in 1989. She has had just occasional alcohol use. She is Jain, and she will not accept blood products. INTERIM HISTORY: In May 2019 she had taken a trip to [place], and while she was there she became very ill and required treatment for pneumonia. She returned here for a follow-up visit in June. Her repeat protein electrophoresis on 07/02/2019 showed increase in the M protein to 2.0 g/dL. Her free light chain assay showed increased kappa light chain to 142 mg/L with lambda light chain 2.9 mg/L, and elevated kappa/lambda ratio at 49.38. Restaging PET/CT on 07/13/2019 showed stable findings in the T1 lesion with FDG activity no greater than that of marrow background, consistent with successfully treated disease. There was no evidence of any new lesions. However, with the significant increase in the M protein and in the kappa free light chain, she was recommended to proceed with third line treatment with daratumumab in combination with carfilzomib and dexamethasone. She underwent placement of Port-A-Cath venous access device in preparation for that treatment. Her baseline echocardiogram showed normal left ventricular function with ejection fraction estimated at 60%. She returned to begin cycle 1 of daratumumab/carfilzomib/dexamethasone on 08/12/2019. The initial infusion of daratumumab was administered in divided doses over 2 days. She tolerated the treatment well. However, her day 8 treatment was complicated by nausea and profuse diaphoresis, which she attributed to the daratumumab. She was able to complete her day 9 carfilzomib treatment. Her day 15/16 treatment was withheld due to a drop in her white blood cell count to 2000 with her ANC at 1000. She did not have fever or other complications. She was given her week 3 daratumumab the following week, but I did opt to split the dosage over 2 days. She tolerated it with no adverse effects. She continued with cycle 2 on 09/11/2019 with the carfilzomib administered at a reduced dosage and with the daratumumab administered in a split dosage. She continued to have anemia, moderately severe neutropenia, and mild thrombocytopenia, but she was able to tolerate the treatment with acceptable toxicity. As of 10/02/2019 the M protein had decreased to 1.1 g/dL. She proceeded with cycle 3 on 10/09/2019. At cycle 3-day 15, on 10/22/2019, her carfilzomib was omitted due to neutropenia, ANC 1400. She did receive her 8th weekly infusion of daratumumab, administered as a single infusion. At that time she also was complaining increased shortness of breath, and a CT pulmonary angiogram showed small filling defects in both the right and left secondary pulmonary arteries consistent with thromboembolic disease. Altered perfusion was seen in those areas. As it did appear to be clinically significant, she was started on anticoagulation with apixaban. Ms. Alvarado is here today for follow-up. She is due for daratumumab and carfilzomib. She states overall she is doing pretty good. She states that she had just realized that she has been only taking 4 of the dexamethasone instead of the 10 tablets. She states she will fix that this week. She denies any fever or chills. She is had no mouth sores or sore throat or difficulty swallowing. She states her appetite comes and goes. She denies any pain. She is continues to have fatigue but has been trying to organize things after selling her house and moving into 5th wheel/RV trailer. She denies any rash. She has had no neuropathy. She denies any new concerns. Her ECOG is 1. Past Medical History: Anxiety/depression Chronic back pain Chronic migraine Coronary artery disease Fibromyalgia Gastroesophageal reflux disease Hypertension Hypothyroidism Past Surgical History: Arthroscopic left knee surgery Left breast biopsy for benign disease Removal of cyst from the right breast Right shoulder surgery Coronary angioplasty/stent placement in 2016 Colonoscopy in 2011 Allergies: Codeine Sulfate, LevoFLOXacin, and Vicodin. Medications: amLODIPine Besylate 1 Tablet (of 5 mg) Oral daily Body/Hair/Skin/Nails 2 Capsule Oral daily Egddeveszs-ZWPC-Mwcd-Cod 1 (61-942-82-30 mg) Capsule Oral four times a day PRN Cholecalciferol 2 (1000 Units) Capsule Oral daily Curcumin 95 1 (500 mg) Capsule Oral daily PRN Cymbalta 1 (60 mg) Capsule Delayed Release Particles Oral daily Eliquis 1 Tablet (of 5 mg) Oral b.i.d. Furosemide 1 Tablet (of 20 mg) Oral daily PRN Levothyroxine Sodium 1 (50 mcg) Tablet Oral daily Lisinopril 1 (25 mg) Tablet Oral daily LORazepam 0.5 - 1 (1 mg) Tablet Oral q 4 hours PRN Multivitamin Adult 1 Tablet Oral daily Nitroglycerin 1 (400 mcg/spray) Aerosol, solution Translingual PRN OxyCODONE HCl 1 (30 mg) Tablet Oral 5x/d PRN Pantoprazole Sodium 1 Tablet (of 40 mg) Tablet, enteric coated Oral daily Plavix 1 (75 mg) Tablet Oral daily Potassium Chloride ER 1 Tablet (of 10 meq) Tablet, controlled release Oral daily PRN Pravastatin Sodium 1 (40 mg) Tablet Oral daily Prochlorperazine Maleate 1 (10 mg) Tablet Oral four times a day PRN QUEtiapine Fumarate 2 Tablet (of 25 mg) Oral at bedtime Soma 1 (350 mg) Tablet Oral four times a day PRN Family History: Ms. Armenta's mother is alive: heart disease. Ms. Armenta's father is alive. Mother still living at age 87 and she is in relatively good health. She doesn't know about her biologic father. A brother is quadriplegic from a motor vehicle accident. A sister has bipolar disease. A maternal aunt had bladder cancer and another maternal aunt had ovarian cancer. Social History: Ms. Armenta is and she is retired. Ms. Armenta quit smoking 27 years ago but had smoked for 12 years. She drinks occasionally. Ms. Armenta reports the following support systems: lives alone, supportive family/friends willing to assist with needs, and adequate transportation available for expected visits. Her diet consists of regular meals. She indicates her activity level as: occasional exercise. She has a history of smoking for 25 years, in the range of 1-3 packs of cigarettes daily. She quit smoking in 1989. She has had just occasional alcohol use. Review Of Symptoms: Constitutional Denies fevers, chills, night sweats. She has had fatigue-no better but no worse than last visit. Allergic/Immunologic No reactions. Eyes Denies significant visual changes. No diplopia. No amaurosis. ENMT Denies changes in hearing, mouth sores, difficulty or changes in swallowing ability, and/or sinus drainage. Hematologic/Lymphatic Denies easy bleeding. The patient denies any tender or palpable lymph nodes-intermittent bruising but stable. Respiratory shortness of breath better overall. Cardiovascular Denies anginal chest pain, palpitations or orthopnea. Gastrointestinal Denies nausea, vomiting, diarrhea, GI bleeding, or constipation. Denies change in bowel habits and/or stool color, no heartburn or early satiety. Genitourinary (F) No hematuria, hesitancy, incontinence, vaginal bleeding, discharge or other problems with urination. Musculoskeletal Denies joint swelling or redness. No decreased range of motion. States she is having joint pain off and on, but chronic and stable. Integumentary Denies chronic rashes, inflammation, ulcerations or skin changes. Neurologic Denies headache, blurred vision, and no areas of focal weakness or numbness. Normal gait. No sensory problems. Psychiatric Denies insomnia, depression, danelle or mood swings. Stress related to family-controlled at present. Vital Signs: Performed on Nov 20, 2019 09:51 Height - 66.00 in Weight - 156.2 lbs (HIGH) BSA - 1.80 sq.m BMI - 25.21 Temperature - 97.2 F (LOW) Pulse - 65 /min Respiration - 19 /min BP - 185/72 mm(hg) (HIGH) O2 Sat - 98 % Pain - 5,1 - No physically strenuous activity, but ambulatory and able to carry out light or sedentary work (e.g. office work, light house work). (ECOG) Physical Examination: Constitutional Alert, oriented, no acute distress. Skin pink, warm and dry. Head Normocephalic; atraumatic. Eyes Conjunctivae and sclerae are clear and without icterus. Pupils are reactive and equal. Neck Supple without masses or thyromegaly. No jugular venous distension. Hematologic/Lymphatic No petechiae or purpura. Respiratory Lungs are clear to auscultation without rhonchi or wheezing. Cardiovascular Regular rate and rhythm of heart without murmurs,clicks, gallops or rubs. Chest left chest wall venous access device insertion site unremarkable. Abdomen Non-tender, non-distended, no masses, ascites. No guarding or rebound tenderness. No pulsatile masses. Back/Spine Non-tender to palpation. Extremities No visible deformities, no cyanosis, clubbing or edema. Musculoskeletal No tenderness or swelling, normal range of motion without obvious weakness. Integumentary No rashes or lesions. Neurologic No sensory or motor deficits, normal cerebellar function, normal gait. Psychiatric Alert and oriented times three. Coherent speech. Verbalizes understanding of our discussions today. Laboratory:Test performed on Nov 20, 2019 08:40 Sodium 139 mmol/L Potassium 4.3 mmol/L Chloride 102 mmol/L CO2 26 mmol/L Anion Gap 15.3 BUN 9 mg/dL Creatinine 0.7 mg/dL Cr Clearance (Est) 91.1400 mL/min eGFR 83.0 mL/min Glucose 91 mg/dL Calcium 9.0 mg/dL Protein, Total 6.8 g/dL Albumin 4.2 g/dL Globulin 2.6 g/dL Bilirubin, Total 0.3 mg/dL ALT (SGPT) 9 U/L AST (SGOT) 15 U/L Alkaline Phosphatase 75 IU/L WBC 3.2 10 3/uL RBC 3.38 10 6/uL HGB 10.3 g/dL HCT 33.0 % MCV 97.6 fL MCH 30.5 pg MCHC 31.2 g/dL RDW 13.8 % Platelet Count 144 10 3/cmm MPV 11.4 fL Neutrophils 1.5 10 3/uL Lymphocytes 1.2 10 3/uL Monocytes 0.3 10 3/uL Eosinophils 0.1 10 3/uL Basophils 0.0 10 3/uL Neutrophil % 48.8 % Lymphocyte % 39.4 % Monocyte % 10.2 % Eosinophil % 1.6 % Basophils % 0.0 % NRBC % 0 % Test performed on Nov 06, 2019 08:45 IgG 1504 mg/dL IgA 50 mg/dL IgM < 25 mg/dL Test performed on October 02, 2019 08:45 ESR (Sed Rate) 43 mm/hr Impression: 1. Patient with IgG kappa myeloma. Bone marrow aspiration/biopsy on 05/17/2017 showed 32% plasma cells, consistent with myeloma. The FISH panel showed gain of chromosome 1q, deletions of RB 1 and LAMP1, and gain of IG. Her baseline M protein was 2.87 g/dL. She was mildly anemic and she had significantly elevated sedimentation rate. She had normal renal function and negative 24-hour urine protein electrophoresis. Skeletal survey showed no lytic bone involvement. PET/CT and MRI both showed findings suspicious for involvement of the T1 vertebral body. She does not appear to be overtly symptomatic with it. 2. Her bone marrow also showed absent storage iron. Her other medical illnesses include: 3. Hypertension. 4. Hyperlipidemia. 5. Coronary artery disease with angioplasty/stent placement in February 2016. 6. Hypothyroidism. 7. GERD. 8. Degenerative arthritis/degenerative disease of the spine. 9. Fibromyalgia. 10. Anxiety/depression. She has been undergoing treatment with Velcade/Revlimid/dexamethasone, cycle 1 beginning on 09/11/2017. Overall, her treatment was very suboptimal due in part to multiple side effects which included skin eruption and neutropenia, among others. Compliance also had been somewhat of an issue. Beginning with her 6th cycle of treatment, on 02/05/2018, her treatment was changed to a 28 day schedule with Velcade administered at a reduced dosage on days 1, 8, and 15, with Revlimid administered at 10 mg daily on a 21/28 day schedule, and with dexamethasone administered weekly. She began cycle 7 on 03/05/2018. Her serum protein electrophoresis at that point did show a significant decrease in the M protein, to 1.41 g/dL. She then continued treatment at the same dosages, but intermittently she still had moderately severe neutropenia. She had otherwise been tolerating the treatment well. She began her 10th cycle of treatment on 05/30/2018. At that point her M protein had stabilized at just over 1 g/dL. She appeared stable clinically, and restaging PET/CT showed only mild FDG activity in the T1 lesion. There were no other areas of FDG uptake, and there was no significant change compared to the prior study in May 2017. As on 07/20/2018 her repeat protein electrophoresis showed a significant increase in the M protein to 1.4 g/dL, and her free light chain assay showed an increase in the kappa/lambda ratio to28.90. With those findings, she was advised to proceed with second line treatment. She indicated that she preferred not to have any IV medication. As such, on 08/29/2018 she began a trial of therapy with Revlimid/ixazomib/dexamethasone. Due to her previous toxicities, the Revlimid was initiated at a reduced dosage of 10 mg daily on a 21/28 day schedule. As of October 2018, following 3 cycles of treatment, her M protein had stabilized at 1.0 g/dL. She continued her same treatment, and as of 01/24/2019 her M protein and her free light chain had remained stable. Her clinical status at that time also appeared stable, and she continued treatment with Revlimid, ixazomib, and dexamethasone at the same dosages. As of 04/22/2019 her protein electrophoresis showed M protein stable at 0.9 g/dL, but her free light chain assay continued to show elevated kappa/lambda ratio at 15.37. Her quantitative immunoglobulin levels showed IgG 1165 mg/dL with IgA low at 10 mg/dL and IgM low at 17 mg/dL. Her CBC showed stable hemoglobin at 12 g, but her ANC was low at 700. As of 05/06/2019 her treatment was put on hold due to persistent neutropenia. Her 24 hour urine protein electrophoresis showed no monoclonal protein. As of her follow-up visit in June 2019 there was evidence of disease progression with significant increase in her M protein and and her kappa free light chain. Her restaging PET/CT showed stable findings at the T1 vertebral body lesion and no evidence of any new lesions. With those findings, she began third line treatment with daratumumab/carfilzomib/dexamethasone on 08/12/2019. She has now completed 1 cycle of treatment. She tolerated her day 1/day 2 treatments very well. She developed mulitple side effects following her day 8 treatment, which she attibuted to the daratumumab. She was able to complete her day 9 carfilzomib treatment. Her day 15/16 treatment was withheld due to neutropenia, ANC 1000. She completed her week 3 daratumumab the following week, but with the dosage split over 2 days. She tolerated it without adverse effects. On 09/11/2019 continued with cycle 2 of daratumumab/carfilzomib/dexamethasone with the carfilzomib administered at a reduced dosage and with the daratumumab administered in a split dosage. She continued to have anemia, moderately severe neutropenia, and mild thrombocytopenia, but she was able to tolerate the treatment with acceptable toxicity. She has had some evidence of response, though not dramatic, with her repeat protein electrophoresis on 10/02/2019 showing decline in the M protein, to 1.1 g/dL. She proceeded with cycle 3 on 10/09/2019. Her blood counts at that point had remained adequate, and her clinical status appeared stable. At cycle 3-day 15 her carfilzomib was omitted due to neutropenia, ANC 1400. She did receive her 8th weekly daratumumab infusion, administered as a single dose. At that time she complained of increased shortness of breath, and she was found on pulmonary angiogram to have bilateral pulmonary emboli. She is now on anticoagulation with apixaban. She continues to have moderately severe neutropenia. She otherwise appears stable clinically. Her abnormal protein???M protein was 1.1 on labs from 10/02/2019. That was recorded at 1.2 on 11/06/2019. It was noted to be 1.5 on 09/11/2019. Plan: 1. Proceed with cycle 4 day 15/16 of daratumumab in combination with carfilzomib/dexamethasone. Encourgaed to take 40 mg of dexamethasone instead of the 16 mg she has been taking. She may split the dexamethasone into 20 mg on days of carfilzomib if tolerated better. 2. Continue anticoagulation with apixaban 5 mg twice daily for bilateral pulmonary emboli. With her known coronary disease, she also is going to continue treatment with Plavix as she does have a history of CAD with stent placement. 3. CBC CMP from today were reviewed in detail and discussed with Ms. Armenta and a copy was given to her. WBC 3.2, hemoglobin 10.3, platelets 144,000 ANC is 1500 LFTs are normal creatinine is 0.7. 4. She will continue her current pain medication as she states this is working well for her. She is using oxycodone IR 30 mg prn. Prescriptions per Dr Sanchez written scripts. 5. We will plan to see her back in 2 weeks for cycle 5-day 1 and 2. She will need a CBC, CMP, SPEP with CLARY, QUIGS and free light chain assay at that time as well. 6. Mrs. Armenta was instructed to contact us in interim should questions or problems arise. Signed By: Say Castillo-, [facility] Sean Sanchez MD <<Signature on File>>
== END 2019-11-20 08:28 | disposition home or self-care (01) ==
LOC: ONCMED 08:29
PROVIDERS: PCP Internal Medicine; Visit Provider Nurse Practitioner
DX: Z51.12 Encounter for antineoplastic immunotherapy (principal); C90.00 Multiple myeloma not having achieved remission; D47.2 Monoclonal gammopathy; D70.1 Agranulocytosis secondary to cancer chemotherapy; T45.1X5A Adverse effect of antineoplastic and immunosuppressive drugs, initial encounter; F41.9 Anxiety disorder, unspecified; F32.9 Major depressive disorder, single episode, unspecified; G43.909 Migraine, unspecified, not intractable, without status migrainosus; I25.10 Atherosclerotic heart disease of native coronary artery without angina pectoris; M79.7 Fibromyalgia; K21.9 Gastro-esophageal reflux disease without esophagitis; I10 Essential (primary) hypertension; E03.9 Hypothyroidism, unspecified
CPT/HCPCS: 80053; 85025; 96361; 96367; 96413; 96415; 96417; 99214; J1200; J2405; J7030; J7040; J9047; J9145

== ENCOUNTER 2019-11-21 09:29 | Outpatient (CLI) | payer MEDICARE, SELFPAY ==
[2019-11-21] MEDS: sodium chloride 0.9% 500 ML 999 ML IV (09:55)
[2019-11-21] MEDS: palonosetron 0.25 mg/5 mL SDV IV (10:34)
== END 2019-11-21 09:30 | disposition home or self-care (01) ==
LOC: ONCMED 09:32
PROVIDERS: PCP Internal Medicine; Visit Provider Nurse Practitioner
DX: Z51.11 Encounter for antineoplastic chemotherapy (principal); C90.00 Multiple myeloma not having achieved remission; D47.2 Monoclonal gammopathy; D70.1 Agranulocytosis secondary to cancer chemotherapy; T45.1X5A Adverse effect of antineoplastic and immunosuppressive drugs, initial encounter; F41.9 Anxiety disorder, unspecified; F32.9 Major depressive disorder, single episode, unspecified; I25.10 Atherosclerotic heart disease of native coronary artery without angina pectoris; M79.7 Fibromyalgia; K21.9 Gastro-esophageal reflux disease without esophagitis; I10 Essential (primary) hypertension; E03.9 Hypothyroidism, unspecified
CPT/HCPCS: 96361; 96367; 96375; 96413; J1200; J2469; J7040; J9047

== ENCOUNTER 2019-11-28 13:18 | Outpatient (CLI) | payer MEDICARE, SELFPAY ==
--- NOTE | 2019-11-28 13:24 | MM_ITS ---
WS: [id number] BILATERAL SCREENING DIGITAL MAMMOGRAM WITH CAD HISTORY: SCREENING COMPARISON: 06/05/2018 and 03/03/2017 Bilateral CC and MLO views submitted. Computer aided detection analyzed. Breast composition: The breasts are heterogeneously dense, which may obscure small masses. No suspici ous masses, microcalcifications or architectural distortion. Bilateral asymmetries and calcifications are stable. No new area of asymmetry. MM/[place] [id number] IMPRESSION: BI-RADS: 2-Benign FOLLOW UP: 1 Year Follow-up
== END 2019-11-28 13:19 | disposition home or self-care (01) ==
LOC: RADSHAW 13:18
PROVIDERS: PCP Internal Medicine; Visit Provider Internal Medicine
DX: Z12.31 Encounter for screening mammogram for malignant neoplasm of breast (principal)
CPT/HCPCS: 77067

== ENCOUNTER 2019-12-04 09:03 | Outpatient (CLI) | payer MEDICARE, SELFPAY ==
[2019-12-04 09:35] LABS: Basophils % 0.3 %; Eosinophils # 0.1 10^3/uL (0.0-0.8); Eosinophils % 1.8 %; Hemoglobin 11.6 g/dL (11.5-15.3); Lymphocytes # 1.2 10^3/uL (0.8-4.8); Lymphocytes % 36.2 %; Mean Corpuscular HGB Conc 31.4 g/dL (30.0-36.0); Mean Corpuscular Hemoglobin 29.7 pg (28.0-34.0); Mean Corpuscular Volume 94.6 fL (81-99); Mean Platelet Volume 9.7 fL (7.4-10.4); Monocytes # 0.3 10^3/uL (0.2-0.9); Monocytes % 9.1 %; Neutrophils # 1.73 10^3/uL (1.8-7.7); Neutrophils % 52.6 %; Nucleated Red Blood Cells % 0 %; Platelet Count 230 10^3/cmm (130-400); Red Blood Count 3.91 10^6/uL (4.1-5.3); Red Cell Distribution Width 13.8 % (12.1-15.1); White Blood Count 3.3 10^3/uL (4.0-10.0)
[2019-12-04 09:54] LABS: Alanine Aminotransferase 11 U/L (0-33); Albumin Level 4.5 g/dL (3.5-5.2); Alkaline Phosphatase 84 IU/L (35-105); Anion Gap 12.1 (5-19); Aspartate Amino Transferase 15 U/L (0-32); Blood Urea Nitrogen 10 mg/dL (8-23); Calcium 9.3 mg/dL (8.5-10.5); Carbon Dioxide 27 mmol/L (22-29); Chloride 101 mmol/L (98-107); Globulin 2.6 g/dL (1.3-4.6); Glomerular Filtration Rate 71.1 mL/min (90-130); Glucose 99 mg/dL (65-115); Immunoglobulin IGG 1405 mg/dL (700-1600); Osmolality Calculated 278 mOsm/kg (285-295); Potassium 4.1 mmol/L (3.5-5.1); Sodium 136 mmol/L (136-145); Thyroid Stimulating Hormone 2.06 uIU/mL (0.27-4.20); Total Bilirubin 0.3 mg/dL (0.15-1.2); Total Protein 7.1 g/dL (6.6-8.7)
[2019-12-04 10:31] LABS: Immunoglobulin IGA < 50 mg/dL (70-400); Immunoglobulin IGM < 25 mg/dL (40-230)
[2019-12-04] MEDS: acetaminophen 325 mg Tablet 650 MG PO (10:40)
[2019-12-04] MEDS: sodium chloride 0.9% 500 ML 999 ML IV (10:41)
[2019-12-05 12:30] LABS: PROTEIN, TOTAL 6.9 g/dL (6.1-8.1)
[2019-12-05 13:55] LABS: KAPPA LIGHT CHAIN, FREE, SERUM 81.7 mg/L (3.3-19.4); KAPPA/LAMBDA LIGHT CHAINS FREE 54.47 (0.26-1.65); LAMBDA LIGHT CHAIN, FREE, SERU 1.5 mg/L (5.7-26.3)
[2019-12-06 07:55] LABS: ABNORMAL PROTEIN BAND 1 1.1 g/dL (NONE DETECTED); ABNORMAL PROTEIN BAND 2 0.1 g/dL (NONE DETECTED); ALBUMIN 4.1 g/dL (3.8-4.8); ALPHA 1 GLOBULIN 0.3 g/dL (0.2-0.3); ALPHA 2 GLOBULIN 0.7 g/dL (0.5-0.9); BETA 1 GLOBULIN 0.5 g/dL (0.4-0.6); BETA 2 GLOBULIN 0.2 g/dL (0.2-0.5); GAMMA GLOBULIN 1.2 g/dL (0.8-1.7)
--- NOTE | 2019-12-08 12:39 | ONC FU_ITS ---
Dr. Sanchez Patient Follow-Up Note Patient: Karely Armenta Unit #: [id number]: [id number] Dicatated By: Sean Sanchez M.D.Date of Visit:Dec 04, 2019 Onc Med Follow-up/Prog Note Chief Complaint: Myeloma. History of Present Illness: This is a 69 year-old woman with IgG kappa myeloma. She was found to be moderately anemic in December 2016 when she was admitted to the hospital with pneumonia. She also reported having had an illness the preceding summer, in October or November, which may have been tick fever, but that was never confirmed. Her follow-up laboratory studies with Dr. Garcia on 05/03/2017 included CBC showing hemoglobin 11.9 g with white blood cell count 5100 and platelet count 155,000. Her sedimentation rate was significantly elevated at 94 mm/hour. The chem profile showed normal renal function with BUN 13 and creatinine 0.96 mg/dL. Calcium was normal at 9.0 mg/dL. The total protein was elevated at 9.0 g/dL with albumin 4.0 g/dL and calculated serum globulin elevated at 5.0 g/dL. Protein electrophoresis showed a monoclonal protein quantitating at 2.5 g/dL. Immunofixation showed an IgG kappa paraprotein measuring 2.87 g/dL. Hepatits screen was nonreactive to hepatitis C, hepatitis Bs antigen, and hepatitis B core total Ab referral. The hepatitis B surface antibody was < 3.10. LDH was normal at 149 U/L. The beta-2 microglobulin was slightly elevated at 0.420 mg/dL. I had seen her initially on 05/11/2017. Repeat protein electrophoresis with immunofixation prior to that visit, from 05/09/2017, showed IgG kappa monoclonal protein quantitating at 2.87 g/dL. The kappa light chain was elevated at 177.96 mg/L with lambda light chain 1.73 mg/L and kappa/lambda ratio elevated at 102. On her further evaluation there was no monoclonal protein detected in a 24-hour urine specimen. Skeletal survey on 05/11/2017 showed cervical and lumbar spondylosis and bilateral hip joint osteoarthritic changes. There was no radiographic evidence of multiple myeloma. She underwent bone marrow aspiration/biopsy on 05/17/2017. The cellularity was estimated at 70% with 32% plasma cells. Iron stores were noted to be absent. The FISH panel for myeloma showed gain of chromosome 1q, deletions of RB 1 and LAMP1, and gain of IG. The standard chromosome analysis was normal. Overall, the findings were consistent with plasma cell neoplasm/myeloma. Staging PET/CT on 06/03/2017 showed a single FDG avid osteolytic site in the T1 vertebral body which was felt to possibly represent multiple myeloma. She then had further evaluation with MRI of the spine on 07/12/2017. There were significant degenerative changes in the cervical spine which included moderate central canal stenosis at C4-C5, C5-C6, and C7 as well as bilateral nerve root encroachment at C5, C6, and C7. There were also degenerative changes in the lumbar spine with interval STIR signal abnormality and enhancement of T10-L5 spinous processes suggesting possible myelomatous changes. The thoracic spine showed subtle diffuse signal and enhancement abnormality involving the T1 vertebral body. In correlation with the PET/CT findings, this was felt to be suspicious for neoplastic process, including multiple myeloma. There were no actual lytic lesions identified. She had further laboratory evaluation on 07/26/2017. Her CBC at that point showed hemoglobin down slightly to 10.1 g with white blood cell count 3700 and platelet count 122,000. Chem profile showed borderline renal function with BUN 12 and creatinine 1.1 mg/dL and calculated GFR 49 mm/hour. Repeat protein electrophoresis showed M protein increased to 3.22 g/dL compared to 2.87 g/dL in April. Her quantitative immunoglobulin levels showed elevated IgG at 3800 mg/dL and IgA low at less than 8.00 and IgM low at 5.50 mg/dL. Her serum iron studies showed normal transferrin saturation at 30.9%, but ferritin was low at 14.4 ng/mL. B12 level was in low-normal range at 288 pg/mL. She is seen for a follow-up visit on 08/14/2017. At that point she did agree to begin treatment with Velcade/Revlimid/dexamethasone. She began her cycle 1 of Velcade/Revlimid/dexamethasone on 09/11/2017. At that time she also began prophylaxis with Bactrim and acyclovir. When she returned for her day 4 Velcade injection, she had developed a significant skin eruption, and she was advised to stop both the Revlimid and the Bactrim. At day 8 she had a reduction in the Velcade dosage to 1.0 mg/m???, as her neutrophil count had dropped to 800 and she also was experiencing some neuropathy. The Revlimid remained on hold. As of 10/17/2017 the ANC was still only 700, and I did opt to delay her 2nd cycle of treatment. Her repeat protein electrophoresis from 10/09/2017 did show a decline in her M protein to 2.71 g/dL compared to a pretreatment level of 3.73 g/dL. She eventually continued with cycle 2 on 10/23/2017 with the Velcade dosage reduced at 1.0 mg/m???. The Revlimid dosage was reduced to 10 mg. Despite the reductions, her cycle 3 was delayed again due to neutropenia. Her repeat protein electrophoresis on 11/20/2017 showed essentially stable M protein level at 2.77 g/dL. She continued with cycle 3 on 12/04/2017. Her neutrophil count at that point was back up to 1900. With that cycle she stopped Revlimid after 1 day and her day for Velcade was held due to multiple symptoms including sore throat, swelling in her throat, hoarseness, and cough. She did receive day 8 Velcade, but her day 11 treatment also was held. She eventually did continue with a 4th cycle of treatment on 12/26/2017 and with the 5th cycle on a 01/16/2018, but with both of those she showed up for only 3 of her scheduled Velcade injections. As of cycle 5 her M protein was still basically stable at 2.82 g/dL. Beginning with cycle 6 her treatment was changed to a 28 day cycle with Velcade administered on days 1, 8, and 15, with Revlimid administered on a day schedule, and with dexamethasone administered weekly. With that change her compliance improved. As of 03/05/2018 she began her 7th cycle of treatment. At that point her serum protein electrophoresis had shown a significant decline in the M protein, to 1.41 g/dL. With continued treatment there was further decline in the M protein. As of 05/08/2018 on day 8 of cycle 9 it had decreased to 0.84 g/dL. However, at day 1 of cycle 10 on 05/30/2018 it increased slightly to 1.11 g/dL. At cycle 10 day 22 on 06/19/2018 it had stabilized at 1.09 g/dL. Restaging PET/CT on 06/23/2018 showed the T1 lesion to be weakly FDG positive and unchanged from the previous study in May 2017. Given those findings, I did opt to put her further treatment on hold. Her repeat protein electrophoresis on 07/20/2018 showed an increase in the M protein to 1.4 g/dL. The free light chain assay showed elevated kappa light chain at 83.8 mg/L with lambda light chain 2.9 mg/L and elevated kappa/lambda ratio at 28.90. With those findings, she was advised to continue to second line treatment. She had indicated that she preferred not to be on any type of IV infusion. As such, I recommend a trial of therapy with Revlimid/ixazomib/dexamethasone. She began cycle 1 of Revlimid/ixazomib/dexamethasone on 08/29/2018. Due to her previous toxicities with Revlimid, it was initiated at a reduced dosage of 10 mg daily on a 21/28 day schedule with ixazomib dosed at 4 mg on days 18 and 15 and the dexamethasone dose at 40 mg weekly. She was able to tolerate it with acceptable toxicity, and she continued with cycle 2 on 09/26/2018 and with cycle 3 on 10/25/2018. Her repeat protein electrophoresis in September did show some decline in the M protein, to 1.0 g/dL. It then stabilized, and she continued her same treatment. As of 01/24/2019 the protein electrophoresis showed her quantitative M protein at 1.1 g/dL. The free light chain assay showed kappa light chain elevated at 105.1 mg/L, lambda light chain 7.0 mg/L, and elevated kappa/lambda ratio at 15.01. She continued treatment with Revlimid/ixazomib/dexamethasone. As of 04/22/2019 her protein electrophoresis showed M protein stable at 0.9 g/dL, but her free light chain assay continued to show elevated kappa/lambda ratio at 15.37. Her quantitative immunoglobulin levels showed IgG 1165 mg/dL with IgA low at 10 mg/dL and IgM low at 17 mg/dL. Her CBC showed stable hemoglobin at 12 g, but her ANC was low at 700. As of 05/06/2019 her treatment was put on hold due to persistent neutropenia. Her 24 urine protein electrophoresis showed no monoclonal protein. Her other medical illnesses include hypertension, hyperlipidemia, coronary artery disease, hypothyroidism, GERD, fibromyalgia, degenerative arthritis, and anxiety/depression. Her surgical/procedural history includes coronary angioplasty/stent placement 2015. She has arthroscopic left knee surgery, and she also has had surgery on the right shoulder. She has history of smoking for 25 years, from 1-3 packs of cigarettes daily. She quit smoking in 1989. She has had just occasional alcohol use. She is [employer], and she will not accept blood products. INTERIM HISTORY: In May 2019 she had taken a trip to [place], and while she was there she became very ill and required treatment for pneumonia. She returned here for a follow-up visit in June. Her repeat protein electrophoresis on 07/02/2019 showed increase in the M protein to 2.0 g/dL. Her free light chain assay showed increased kappa light chain to 142 mg/L with lambda light chain 2.9 mg/L, and elevated kappa/lambda ratio at 49.38. Restaging PET/CT on 07/13/2019 showed stable findings in the T1 lesion with FDG activity no greater than that of marrow background, consistent with successfully treated disease. There was no evidence of any new lesions. However, with the significant increase in the M protein and in the kappa free light chain, she was recommended to proceed with third line treatment with daratumumab in combination with carfilzomib and dexamethasone. She underwent placement of Port-A-Cath venous access device in preparation for that treatment. Her baseline echocardiogram showed normal left ventricular function with ejection fraction estimated at 60%. She returned to begin cycle 1 of daratumumab/carfilzomib/dexamethasone on 08/12/2019. The initial infusion of daratumumab was administered in divided doses over 2 days. She tolerated the treatment well. However, her day 8 treatment was complicated by nausea and profuse diaphoresis, which she attributed to the daratumumab. She was able to complete her day 9 carfilzomib treatment. Her day 15/16 treatment was withheld due to a drop in her white blood cell count to 2000 with her ANC at 1000. She did not have fever or other complications. She was given her week 3 daratumumab the following week, but I did opt to split the dosage over 2 days. She tolerated it with no adverse effects. She continued with cycle 2 on 09/11/2019 with the carfilzomib administered at a reduced dosage and with the daratumumab administered in a split dosage. She continued to have anemia, moderately severe neutropenia, and mild thrombocytopenia, but she was able to tolerate the treatment with acceptable toxicity. As of 10/02/2019 the M protein had decreased to 1.1 g/dL. She proceeded with cycle 3 on 10/09/2019. At cycle 3-day 15, on 10/22/2019, her carfilzomib was omitted due to neutropenia, ANC 1400. She did receive her 8th weekly infusion of daratumumab, administered as a single infusion. At that time she also was complaining increased shortness of breath, and a CT pulmonary angiogram showed small filling defects in both the right and left secondary pulmonary arteries consistent with thromboembolic disease. Altered perfusion was seen in those areas. As it did appear to be clinically significant, she was started on anticoagulation with apixaban. She continued with her 4th cycle of treatment on 11/06/2019 with the daratumumab administered at 2-week intervals. At that point her M protein was stable at 1.2 g/dL. The serum free light chain assay, though, did show a decline in her free kappa light chain from 143.7 to 100.6 mg/L. She is seen for a followup visit. She says she is feeling fine. She does have somewhat limited activity tolerance, she attributes to the hot weather. She is able to do light work. ECOG score is 1. She has good appetite. She has not had fever or night sweats. She has a little bit of sinus drainage and she says she has sore throat off and on. She has no shortness of breath, cough, or chest pain. She has no GI or complaints. She still has pain in her lower back, and she also has been having some pain in her neck and shoulders. She has continued to have some dull headache and she occasionally has dizziness. She is not having as much numbness/tingling. Medications: amLODIPine Besylate 1 Tablet (of 5 mg) Oral daily, Body/Hair/Skin/Nails 2 Capsule Oral daily, Mjhleuixyw-VMCX-[id number]-Cod 1 (17-346-21-30 mg) Capsule Oral four times a day PRN, Cholecalciferol 2 (1000 Units) Capsule Oral daily, Curcumin 95 1 (500 mg) Capsule Oral daily PRN, Cymbalta 1 (60 mg) Capsule Delayed Release Particles Oral daily, Eliquis 1 Tablet (of 5 mg) Oral b.i.d., Eliquis 1 Tablet (of 5 mg) Oral b.i.d., Furosemide 1 Tablet (of 20 mg) Oral daily PRN, Levothyroxine Sodium 1 (50 mcg) Tablet Oral daily, Lisinopril 1 (25 mg) Tablet Oral daily, LORazepam 0.5 - 1 (1 mg) Tablet Oral q 4 hours PRN, Multivitamin Adult 1 Tablet Oral daily, Nitroglycerin 1 (400 mcg/spray) Aerosol, solution Translingual PRN, OxyCODONE HCl 1 (30 mg) Tablet Oral 5x/d PRN, Pantoprazole Sodium 1 Tablet (of 40 mg) Tablet, enteric coated Oral daily, Plavix 1 (75 mg) Tablet Oral daily, Potassium Chloride ER 1 Tablet (of 10 meq) Tablet, controlled release Oral daily PRN, Pravastatin Sodium 1 (40 mg) Tablet Oral daily, Prochlorperazine Maleate 1 (10 mg) Tablet Oral four times a day PRN, QUEtiapine Fumarate 2 Tablet (of 25 mg) Oral at bedtime, Soma 1 (350 mg) Tablet Oral four times a day PRN Allergies: Codeine Sulfate, LevoFLOXacin, and Vicodin. Review of Systems: Constitutional - She is feeling good. Her energy has been good. Her appetite is good and weight is down a couple pounds from last visit. No fever, night sweats, or hot flashes. ECOG score is 1, ENMT - She has seasonal allergies. No mouth sores. She has a slight soreness in her throat, but this has been occurring for quite some time. No difficulty swallowing, Hematologic/Lymphatic - She has easy bruising/bleeding, Respiratory - No shortness of breath. No cough. No pleuritic pain or hemoptysis, Cardiovascular - No angina pain. No palpitations, Gastrointestinal - No nausea or vomiting. No heartburn or acid reflux. No diarrhea or constipation. No blood in the stool or black stools, Genitourinary (F) - No dysuria or hematuria. No urinary frequency. No urgency or incontinence, Musculoskeletal - She continues to have the chronic pain in her back and she also has pain in her neck and shoulders. This is adequately managed with oxycodone-IR 30 mg, swyesoubdv-snsbbfleueezk-etjqkbas, and Soma, Integumentary - No skin complications, Neurologic - She been having headaches, which she believes may are related to her new mattress. She has some dizziness. No numbness or tingling. No other focal neurologic symptoms, Psychiatric - No anxiety or depression. No insomnia. Vital Signs: Performed on Dec 04, 2019 09:28 Height - 66.00 in Weight - 154.2 lbs (LOW) BSA - 1.79 sq.m BMI - 24.89 Temperature - 98.5 F Pulse - 63 /min Respiration - 16 /min BP - 128/70 mm(hg) O2 Sat - 98 % Pain - 5 Physical Examination: Constitutional - She looks pretty good generally, Eyes - Sclerae nonicteric. Conjunctivae clear, ENMT - No lesions noted in the oral cavity, Hematologic/Lymphatic - No cervical, clavicular, or axillary adenopathy, Respiratory - Lungs are clear with good air movement bilaterally, Cardiovascular - Heart rhythm is regular. There is no murmur, gallop, or rub noted, Abdomen - Soft. Liver and spleen are not enlarged. There is no abdominal mass or ascites noted and there is no inguinal adenopathy, Extremities - No edema, Neurologic - No focal neurologic deficits noted. Lab/Imaging: Test performed on Dec 04, 2019 09:14 Sodium 136 mmol/L TSH 2.06 uIU/mL Potassium 4.1 mmol/L Chloride 101 mmol/L CO2 27 mmol/L Anion Gap 12.1 BUN 10 mg/dL Creatinine 0.8 mg/dL Cr Clearance (Est) 79.7500 mL/min eGFR 71.1 mL/min Glucose 99 mg/dL Calcium 9.3 mg/dL Protein, Total 7.1 g/dL Albumin 4.5 g/dL Globulin 2.6 g/dL Bilirubin, Total 0.3 mg/dL ALT (SGPT) 11 U/L AST (SGOT) 15 U/L Alkaline Phosphatase 84 IU/L WBC 3.3 10 3/uL RBC 3.91 10 6/uL HGB 11.6 g/dL HCT 37.0 % MCV 94.6 fL MCH 29.7 pg MCHC 31.4 g/dL RDW 13.8 % Platelet Count 230 10 3/cmm MPV 9.7 fL Neutrophils 1.73 10 3/uL Lymphocytes 1.2 10 3/uL Monocytes 0.3 10 3/uL Eosinophils 0.1 10 3/uL Basophils 0.0 10 3/uL Neutrophil % 52.6 % Lymphocyte % 36.2 % Monocyte % 9.1 % Eosinophil % 1.8 % Basophils % 0.3 % NRBC % 0 % IgG 1405 mg/dL IgA < 50 mg/dL IgM < 25 mg/dL Impression: 1. Patient with IgG kappa myeloma. Bone marrow aspiration/biopsy on 05/17/2017 showed 32% plasma cells, consistent with myeloma. The FISH panel showed gain of chromosome 1q, deletions of RB 1 and LAMP1, and gain of IG. Her baseline M protein was 2.87 g/dL. She was mildly anemic and she had significantly elevated sedimentation rate. She had normal renal function and negative 24-hour urine protein electrophoresis. Skeletal survey showed no lytic bone involvement. PET/CT and MRI both showed findings suspicious for involvement of the T1 vertebral body. She does not appear to be overtly symptomatic with it. 2. Her bone marrow also showed absent storage iron. Her other medical illnesses include: 3. Hypertension. 4. Hyperlipidemia. 5. Coronary artery disease with angioplasty/stent placement in February 2016. 6. Hypothyroidism. 7. GERD. 8. Degenerative arthritis/degenerative disease of the spine. 9. Fibromyalgia. 10. Anxiety/depression. She has been undergoing treatment with Velcade/Revlimid/dexamethasone, cycle 1 beginning on 09/11/2017. Overall, her treatment was very suboptimal due in part to multiple side effects which included skin eruption and neutropenia, among others. Compliance also had been somewhat of an issue. Beginning with her 6th cycle of treatment, on 02/05/2018, her treatment was changed to a 28 day schedule with Velcade administered at a reduced dosage on days 1, 8, and 15, with Revlimid administered at 10 mg daily on a 21/28 day schedule, and with dexamethasone administered weekly. She began cycle 7 on 03/05/2018. Her serum protein electrophoresis at that point did show a significant decrease in the M protein, to 1.41 g/dL. She then continued treatment at the same dosages, but intermittently she still had moderately severe neutropenia. She had otherwise been tolerating the treatment well. She began her 10th cycle of treatment on 05/30/2018. At that point her M protein had stabilized at just over 1 g/dL. She appeared stable clinically, and restaging PET/CT showed only mild FDG activity in the T1 lesion. There were no other areas of FDG uptake, and there was no significant change compared to the prior study in May 2017. As on 07/20/2018 her repeat protein electrophoresis showed a significant increase in the M protein to 1.4 g/dL, and her free light chain assay showed an increase in the kappa/lambda ratio to28.90. With those findings, she was advised to proceed with second line treatment. She indicated that she preferred not to have any IV medication. As such, on 08/29/2018 she began a trial of therapy with Revlimid/ixazomib/dexamethasone. Due to her previous toxicities, the Revlimid was initiated at a reduced dosage of 10 mg daily on a 21/28 day schedule. As of October 2018, following 3 cycles of treatment, her M protein had stabilized at 1.0 g/dL. She continued her same treatment, and as of 01/24/2019 her M protein and her free light chain had remained stable. Her clinical status at that time also appeared stable, and she continued treatment with Revlimid, ixazomib, and dexamethasone at the same dosages. As of 04/22/2019 her protein electrophoresis showed M protein stable at 0.9 g/dL, but her free light chain assay continued to show elevated kappa/lambda ratio at 15.37. Her quantitative immunoglobulin levels showed IgG 1165 mg/dL with IgA low at 10 mg/dL and IgM low at 17 mg/dL. Her CBC showed stable hemoglobin at 12 g, but her ANC was low at 700. As of 05/06/2019 her treatment was put on hold due to persistent neutropenia. Her 24 hour urine protein electrophoresis showed no monoclonal protein. As of her follow-up visit in June 2019 there was evidence of disease progression with significant increase in her M protein and and her kappa free light chain. Her restaging PET/CT showed stable findings at the T1 vertebral body lesion and no evidence of any new lesions. With those findings, she began third line treatment with daratumumab/carfilzomib/dexamethasone on 08/12/2019. She has now completed 1 cycle of treatment. She tolerated her day 1/day 2 treatments very well. She developed mulitple side effects following her day 8 treatment, which she attibuted to the daratumumab. She was able to complete her day 9 carfilzomib treatment. Her day 15/16 treatment was withheld due to neutropenia, ANC 1000. She completed her week 3 daratumumab the following week, but with the dosage split over 2 days. She tolerated it without adverse effects. On 09/11/2019 continued with cycle 2 of daratumumab/carfilzomib/dexamethasone with the carfilzomib administered at a reduced dosage and with the daratumumab administered in a split dosage. She continued to have anemia, moderately severe neutropenia, and mild thrombocytopenia, but she was able to tolerate the treatment with acceptable toxicity. She has had some evidence of response, though not dramatic, with her repeat protein electrophoresis on 10/02/2019 showing decline in the M protein, to 1.1 g/dL. She proceeded with cycle 3 on 10/09/2019. Her blood counts at that point had remained adequate, and her clinical status appeared stable. At cycle 3-day 15 her carfilzomib was omitted due to neutropenia, ANC 1400. She did receive her 8th weekly daratumumab infusion, administered as a single dose. At that time she complained of increased shortness of breath, and she was found on pulmonary angiogram to have bilateral pulmonary emboli. She began on anticoagulation with apixaban. She continued to have moderately severe neutropenia, but she otherwise appeared stable clinically. She continued with her 4th cycle of treatment on 11/06/2019 with the daratumumab administered at 2-week intervals. At that point her M protein was stable at 1.2 g/dL. It is uncertain to what extent that may have reflected residual disease or monoclonal protein associated with the daratumumab. The serum free light chain assay did show a decline in her free kappa light chain from 143.7 to 100.6 mg/L. Overall, she appears to be tolerating the treatment well, and there has been improvement in her clinical status since she started the anticoagulation. Plan: She will continue now with cycle 5 of daratumumab in combination with carfilzomib and dexamethasone. The dosages remain the same. The daratumumab is being administered at 2-week intervals. She continues anticoagulation with apixaban 5 mg twice daily. She will return for treatment in 1 week and for a follow-up visit in 2 weeks. She will need to have a repeat echocardiogram prior to that visit. Signed By: Sean Sanchez M.D. <<Signature on File>>
== END 2019-12-04 09:04 | disposition home or self-care (01) ==
LOC: ONCMED 09:05
PROVIDERS: PCP Internal Medicine; Visit Provider Internal Medicine Medical Oncology
DX: Z51.12 Encounter for antineoplastic immunotherapy (principal); C90.00 Multiple myeloma not having achieved remission; I10 Essential (primary) hypertension; E78.5 Hyperlipidemia, unspecified; I25.10 Atherosclerotic heart disease of native coronary artery without angina pectoris; E03.9 Hypothyroidism, unspecified; K21.9 Gastro-esophageal reflux disease without esophagitis; M19.90 Unspecified osteoarthritis, unspecified site; M47.9 Spondylosis, unspecified; M79.7 Fibromyalgia; F41.8 Other specified anxiety disorders; Z95.5 Presence of coronary angioplasty implant and graft; Z95.1 Presence of aortocoronary bypass graft; Z79.899 Other long term (current) drug therapy; Z79.01 Long term (current) use of anticoagulants
CPT/HCPCS: 80053; 82784; 83883; 84155; 84165; 84443; 85025; 96361; 96367; 96413; 96415; 96417; 99214; J1200; J2405; J7040; J9047; J9145

== ENCOUNTER 2019-12-05 09:58 | Outpatient (CLI) | payer MEDICARE, SELFPAY ==
[2019-12-05] MEDS: acetaminophen 325 mg Tablet 650 MG PO (10:18)
[2019-12-05] MEDS: sodium chloride 0.9% 500 ML 999 ML IV (10:18)
[2019-12-05] MEDS: palonosetron 0.25 MG in sodium chloride 0.9% 50 ML 188 MG IV (11:00)
== END 2019-12-05 09:59 | disposition home or self-care (01) ==
LOC: ONCMED 10:01
PROVIDERS: PCP Internal Medicine; Visit Provider Internal Medicine Medical Oncology
DX: C90.00 Multiple myeloma not having achieved remission (principal); D47.2 Monoclonal gammopathy; D70.1 Agranulocytosis secondary to cancer chemotherapy; T45.1X5A Adverse effect of antineoplastic and immunosuppressive drugs, initial encounter; F41.9 Anxiety disorder, unspecified; F32.9 Major depressive disorder, single episode, unspecified; G43.909 Migraine, unspecified, not intractable, without status migrainosus; I25.10 Atherosclerotic heart disease of native coronary artery without angina pectoris; M79.7 Fibromyalgia; K21.9 Gastro-esophageal reflux disease without esophagitis; I10 Essential (primary) hypertension; E03.9 Hypothyroidism, unspecified
CPT/HCPCS: 96361; 96367; 96413; J1200; J2469; J7040; J9047

== ENCOUNTER 2019-12-11 09:12 | Outpatient (CLI) | payer MEDICARE, SELFPAY ==
[2019-12-11 10:11] LABS: Basophils % 0.3 %; Eosinophils % 0.5 %; Hematocrit 32.5 % (37.0-47.0); Hemoglobin 10.2 g/dL (11.5-15.3); Lymphocytes # 0.9 10^3/uL (0.8-4.8); Lymphocytes % 23.2 %; Mean Corpuscular HGB Conc 31.4 g/dL (30.0-36.0); Mean Corpuscular Hemoglobin 29.4 pg (28.0-34.0); Mean Corpuscular Volume 93.7 fL (81-99); Mean Platelet Volume 10.6 fL (7.4-10.4); Monocytes # 0.3 10^3/uL (0.2-0.9); Monocytes % 7.6 %; Neutrophils # 2.53 10^3/uL (1.8-7.7); Neutrophils % 68.4 %; Nucleated Red Blood Cells % 0 %; Platelet Count 111 10^3/cmm (130-400); Red Blood Count 3.47 10^6/uL (4.1-5.3); Red Cell Distribution Width 13.6 % (12.1-15.1); White Blood Count 3.7 10^3/uL (4.0-10.0)
[2019-12-11] MEDS: acetaminophen 325 mg Tablet 650 MG PO (11:13)
[2019-12-11] MEDS: sodium chloride 0.9% 500 ML 999 ML IV (11:16)
== END 2019-12-11 09:13 | disposition home or self-care (01) ==
LOC: ONCMED 09:14
PROVIDERS: PCP Internal Medicine; Visit Provider Internal Medicine Medical Oncology
DX: Z51.11 Encounter for antineoplastic chemotherapy (principal); C90.00 Multiple myeloma not having achieved remission; D47.2 Monoclonal gammopathy; D70.1 Agranulocytosis secondary to cancer chemotherapy
CPT/HCPCS: 85025; 96361; 96367; 96413; J1200; J2405; J7040; J9047

== ENCOUNTER 2019-12-12 10:06 | Outpatient (CLI) | payer MEDICARE, SELFPAY ==
[2019-12-12] MEDS: sodium chloride 0.9% 500 ML 999 ML IV (10:28)
[2019-12-12] MEDS: palonosetron 0.25 mg/5 mL SDV IV (10:33)
== END 2019-12-12 10:07 | disposition home or self-care (01) ==
LOC: ONCMED 10:12
PROVIDERS: PCP Internal Medicine; Visit Provider Internal Medicine Medical Oncology
DX: C90.00 Multiple myeloma not having achieved remission (principal); D47.2 Monoclonal gammopathy; D70.1 Agranulocytosis secondary to cancer chemotherapy
CPT/HCPCS: 96361; 96367; 96375; 96413; J1200; J2469; J7040; J9047

== ENCOUNTER 2019-12-18 09:41 | Outpatient (CLI) | payer MEDICARE, SELFPAY ==
[2019-12-18 10:10] LABS: Basophils % 0.3 %; Eosinophils # 0.1 10^3/uL (0.0-0.8); Eosinophils % 1.5 %; Hematocrit 35.8 % (37.0-47.0); Hemoglobin 11.2 g/dL (11.5-15.3); Lymphocytes # 0.9 10^3/uL (0.8-4.8); Lymphocytes % 27.1 %; Mean Corpuscular HGB Conc 31.3 g/dL (30.0-36.0); Mean Corpuscular Hemoglobin 29.9 pg (28.0-34.0); Mean Corpuscular Volume 95.5 fL (81-99); Mean Platelet Volume 10.8 fL (7.4-10.4); Monocytes # 0.4 10^3/uL (0.2-0.9); Monocytes % 12.2 %; Neutrophils # 1.98 10^3/uL (1.8-7.7); Neutrophils % 58.9 %; Nucleated Red Blood Cells % 0 %; Platelet Count 149 10^3/cmm (130-400); Red Blood Count 3.75 10^6/uL (4.1-5.3); Red Cell Distribution Width 14.6 % (12.1-15.1); White Blood Count 3.4 10^3/uL (4.0-10.0)
[2019-12-18] MEDS: sodium chloride 0.9% 1,000 ML 999 ML IV (10:42)
[2019-12-18] MEDS: acetaminophen 325 mg Tablet 650 MG PO (11:12)
== END 2019-12-18 09:42 | disposition home or self-care (01) ==
LOC: ONCMED 09:44
PROVIDERS: PCP Internal Medicine; Visit Provider Internal Medicine Medical Oncology
DX: Z51.12 Encounter for antineoplastic immunotherapy (principal); Z51.11 Encounter for antineoplastic chemotherapy; C90.00 Multiple myeloma not having achieved remission; D47.2 Monoclonal gammopathy; D70.1 Agranulocytosis secondary to cancer chemotherapy; T45.1X5A Adverse effect of antineoplastic and immunosuppressive drugs, initial encounter; F41.9 Anxiety disorder, unspecified; F32.9 Major depressive disorder, single episode, unspecified; I25.10 Atherosclerotic heart disease of native coronary artery without angina pectoris; M79.7 Fibromyalgia; K21.9 Gastro-esophageal reflux disease without esophagitis; I10 Essential (primary) hypertension; E03.9 Hypothyroidism, unspecified
CPT/HCPCS: 85025; 96361; 96367; 96413; 96415; 96417; J1200; J2405; J7030; J7040; J9047; J9145

== ENCOUNTER 2019-12-19 10:06 | Outpatient (CLI) | payer MEDICARE, SELFPAY ==
[2019-12-19] MEDS: sodium chloride 0.9% 500 ML 999 ML IV (10:28)
[2019-12-19] MEDS: palonosetron 0.25 mg/5 mL SDV IV (11:04)
== END 2019-12-19 10:07 | disposition home or self-care (01) ==
LOC: ONCMED 10:09
PROVIDERS: PCP Internal Medicine; Visit Provider Internal Medicine Medical Oncology
DX: Z51.11 Encounter for antineoplastic chemotherapy (principal); C90.00 Multiple myeloma not having achieved remission; D47.2 Monoclonal gammopathy; D70.1 Agranulocytosis secondary to cancer chemotherapy; T45.1X5A Adverse effect of antineoplastic and immunosuppressive drugs, initial encounter
CPT/HCPCS: 96361; 96367; 96375; 96413; J1200; J2469; J7040; J9047

== ENCOUNTER 2020-01-01 06:11 | Outpatient (CLI) | payer MEDICARE, SELFPAY ==
[2020-01-01 09:26] LABS: Basophils % 0.4 %; Eosinophils % 1.2 %; Hematocrit 32.4 % (37.0-47.0); Lymphocytes # 0.9 10^3/uL (0.8-4.8); Lymphocytes % 36.6 %; Mean Corpuscular HGB Conc 30.9 g/dL (30.0-36.0); Mean Corpuscular Hemoglobin 29.3 pg (28.0-34.0); Mean Platelet Volume 9.5 fL (7.4-10.4); Monocytes # 0.2 10^3/uL (0.2-0.9); Monocytes % 8.5 %; Neutrophils # 1.31 10^3/uL (1.8-7.7); Neutrophils % 53.3 %; Nucleated Red Blood Cells % 0 %; Platelet Count 190 10^3/cmm (130-400); Red Blood Count 3.41 10^6/uL (4.1-5.3); Red Cell Distribution Width 14.7 % (12.1-15.1); White Blood Count 2.5 10^3/uL (4.0-10.0)
[2020-01-01 09:42] LABS: Alanine Aminotransferase 12 U/L (0-33); Albumin Level 3.7 g/dL (3.5-5.2); Alkaline Phosphatase 75 IU/L (35-105); Anion Gap 10.8 (5-19); Aspartate Amino Transferase 17 U/L (0-32); Blood Urea Nitrogen 12 mg/dL (8-23); Calcium 8.5 mg/dL (8.5-10.5); Carbon Dioxide 26 mmol/L (22-29); Chloride 106 mmol/L (98-107); Globulin 2.4 g/dL (1.3-4.6); Glomerular Filtration Rate 71.1 mL/min (90-130); Glucose 111 mg/dL (65-115); Immunoglobulin IGG 1191 mg/dL (700-1600); Osmolality Calculated 285 mOsm/kg (285-295); Potassium 3.8 mmol/L (3.5-5.1); Sodium 139 mmol/L (136-145); Total Bilirubin 0.2 mg/dL (0.15-1.2); Total Protein 6.1 g/dL (6.6-8.7)
[2020-01-01 10:01] LABS: Immunoglobulin IGA < 50 mg/dL (70-400); Immunoglobulin IGM < 25 mg/dL (40-230)
--- NOTE | 2020-01-01 10:41 | ONC FU_ITS ---
[facility] Patient Note Patient: Karely Armenta Unit #: [id number]: 1950 Dictated By: Say CastilloDate of Visit: Jan 01, 2020 Onc MED Follow-Up/Prog Note Chief Complaint: Myeloma. History of Present Illness: Ms Armenta is a 69 year-old woman with IgG kappa myeloma. She was found to be moderately anemic in December 2016 when she was admitted to the hospital with pneumonia. She also reported having had an illness the preceding summer, in October or November, which may have been tick fever, but that was never confirmed. Her follow-up laboratory studies with Dr. Garcia on 05/03/2017 included CBC showing hemoglobin 11.9 g with white blood cell count 5100 and platelet count 155,000. Her sedimentation rate was significantly elevated at 94 mm/hour. The chem profile showed normal renal function with BUN 13 and creatinine 0.96 mg/dL. Calcium was normal at 9.0 mg/dL. The total protein was elevated at 9.0 g/dL with albumin 4.0 g/dL and calculated serum globulin elevated at 5.0 g/dL. Protein electrophoresis showed a monoclonal protein quantitating at 2.5 g/dL. Immunofixation showed an IgG kappa paraprotein measuring 2.87 g/dL. Hepatitis screen was nonreactive to hepatitis C, hepatitis Bs antigen, and hepatitis B core total Ab referral. The hepatitis B surface antibody was < 3.10. LDH was normal at 149 U/L. The beta-2 microglobulin was slightly elevated at 0.420 mg/dL. Dr Sanchez had seen her initially on 05/11/2017. Repeat protein electrophoresis with immunofixation prior to that visit, from 05/09/2017, showed IgG kappa monoclonal protein quantitating at 2.87 g/dL. The kappa light chain was elevated at 177.96 mg/L with lambda light chain 1.73 mg/L and kappa/lambda ratio elevated at 102. On her further evaluation there was no monoclonal protein detected in a 24-hour urine specimen. Skeletal survey on 05/11/2017 showed cervical and lumbar spondylosis and bilateral hip joint osteoarthritic changes. There was no radiographic evidence of multiple myeloma. She underwent bone marrow aspiration/biopsy on 05/17/2017. The cellularity was estimated at 70% with 32% plasma cells. Iron stores were noted to be absent. The FISH panel for myeloma showed gain of chromosome 1q, deletions of RB 1 and LAMP1, and gain of IG. The standard chromosome analysis was normal. Overall, the findings were consistent with plasma cell neoplasm/myeloma. Staging PET/CT on 06/03/2017 showed a single FDG avid osteolytic site in the T1 vertebral body which was felt to possibly represent multiple myeloma. She then had further evaluation with MRI of the spine on 07/12/2017. There were significant degenerative changes in the cervical spine which included moderate central canal stenosis at C4-C5, C5-C6, and C7 as well as bilateral nerve root encroachment at C5, C6, and C7. There were also degenerative changes in the lumbar spine with interval STIR signal abnormality and enhancement of T10-L5 spinous processes suggesting possible myelomatous changes. The thoracic spine showed subtle diffuse signal and enhancement abnormality involving the T1 vertebral body. In correlation with the PET/CT findings, this was felt to be suspicious for neoplastic process, including multiple myeloma. There were no actual lytic lesions identified. She had further laboratory evaluation on 07/26/2017. Her CBC at that point showed hemoglobin down slightly to 10.1 g with white blood cell count 3700 and platelet count 122,000. Chem profile showed borderline renal function with BUN 12 and creatinine 1.1 mg/dL and calculated GFR 49 mm/hour. Repeat protein electrophoresis showed M protein increased to 3.22 g/dL compared to 2.87 g/dL in April. Her quantitative immunoglobulin levels showed elevated IgG at 3800 mg/dL and IgA low at less than 8.00 and IgM low at 5.50 mg/dL. Her serum iron studies showed normal transferrin saturation at 30.9%, but ferritin was low at 14.4 ng/mL. B12 level was in low-normal range at 288 pg/mL. She is seen for a follow-up visit on 08/14/2017. At that point she did agree to begin treatment with Velcade/Revlimid/dexamethasone. She began her cycle 1 of Velcade/Revlimid/dexamethasone on 09/11/2017. At that time she also began prophylaxis with Bactrim and acyclovir. When she returned for her day 4 Velcade injection, she had developed a significant skin eruption, and she was advised to stop both the Revlimid and the Bactrim. At day 8 she had a reduction in the Velcade dosage to 1.0 mg/m???, as her neutrophil count had dropped to 800 and she also was experiencing some neuropathy. The Revlimid remained on hold. As of 10/17/2017 the ANC was still only 700, and I did opt to delay her 2nd cycle of treatment. Her repeat protein electrophoresis from 10/09/2017 did show a decline in her M protein to 2.71 g/dL compared to a pretreatment level of 3.73 g/dL. She eventually continued with cycle 2 on 10/23/2017 with the Velcade dosage reduced at 1.0 mg/m???. The Revlimid dosage was reduced to 10 mg. Despite the reductions, her cycle 3 was delayed again due to neutropenia. Her repeat protein electrophoresis on 11/20/2017 showed essentially stable M protein level at 2.77 g/dL. She continued with cycle 3 on 12/04/2017. Her neutrophil count at that point was back up to 1900. With that cycle she stopped Revlimid after 1 day and her day for Velcade was held due to multiple symptoms including sore throat, swelling in her throat, hoarseness, and cough. She did receive day 8 Velcade, but her day 11 treatment also was held. She eventually did continue with a 4th cycle of treatment on 12/26/2017 and with the 5th cycle on a 01/16/2018, but with both of those she showed up for only 3 of her scheduled Velcade injections. As of cycle 5 her M protein was still basically stable at 2.82 g/dL. Beginning with cycle 6 her treatment was changed to a 28 day cycle with Velcade administered on days 1, 8, and 15, with Revlimid administered on a 21/28 day schedule, and with dexamethasone administered weekly. With that change her compliance improved. As of 03/05/2018 she began her 7th cycle of treatment. At that point her serum protein electrophoresis had shown a significant decline in the M protein, to 1.41 g/dL. With continued treatment there was further decline in the M protein. As of 05/08/2018 on day 8 of cycle 9 it had decreased to 0.84 g/dL. However, at day 1 of cycle 10 on 05/30/2018 it increased slightly to 1.11 g/dL. At cycle 10 day 22 on 06/19/2018 it had stabilized at 1.09 g/dL. Restaging PET/CT on 06/23/2018 showed the T1 lesion to be weakly FDG positive and unchanged from the previous study in May 2017. Given those findings, I did opt to put her further treatment on hold. Her repeat protein electrophoresis on 07/20/2018 showed an increase in the M protein to 1.4 g/dL. The free light chain assay showed elevated kappa light chain at 83.8 mg/L with lambda light chain 2.9 mg/L and elevated kappa/lambda ratio at 28.90. With those findings, she was advised to continue to second line treatment. She had indicated that she preferred not to be on any type of IV infusion. As such, I recommend a trial of therapy with Revlimid/ixazomib/dexamethasone. She began cycle 1 of Revlimid/ixazomib/dexamethasone on 08/29/2018. Due to her previous toxicities with Revlimid, it was initiated at a reduced dosage of 10 mg daily on a 21/28 day schedule with ixazomib dosed at 4 mg on days 18 and 15 and the dexamethasone dose at 40 mg weekly. She was able to tolerate it with acceptable toxicity, and she continued with cycle 2 on 09/26/2018 and with cycle 3 on 10/25/2018. Her repeat protein electrophoresis in September did show some decline in the M protein, to 1.0 g/dL. It then stabilized, and she continued her same treatment. As of 01/24/2019 the protein electrophoresis showed her quantitative M protein at 1.1 g/dL. The free light chain assay showed kappa light chain elevated at 105.1 mg/L, lambda light chain 7.0 mg/L, and elevated kappa/lambda ratio at 15.01. She continued treatment with Revlimid/ixazomib/dexamethasone. As of 04/22/2019 her protein electrophoresis showed M protein stable at 0.9 g/dL, but her free light chain assay continued to show elevated kappa/lambda ratio at 15.37. Her quantitative immunoglobulin levels showed IgG 1165 mg/dL with IgA low at 10 mg/dL and IgM low at 17 mg/dL. Her CBC showed stable hemoglobin at 12 g, but her ANC was low at 700. As of 05/06/2019 her treatment was put on hold due to persistent neutropenia. Her 24 urine protein electrophoresis showed no monoclonal protein. Her other medical illnesses include hypertension, hyperlipidemia, coronary artery disease, hypothyroidism, GERD, fibromyalgia, degenerative arthritis, and anxiety/depression. Her surgical/procedural history includes coronary angioplasty/stent placement 2015. She has arthroscopic left knee surgery, and she also has had surgery on the right shoulder. She has history of smoking for 25 years, from 1-3 packs of cigarettes daily. She quit smoking in 1989. She has had just occasional alcohol use. She is [employer], and she will not accept blood products. INTERIM HISTORY: In May 2019 she had taken a trip to [place], and while she was there she became very ill and required treatment for pneumonia. She returned here for a follow-up visit in June. Her repeat protein electrophoresis on 07/02/2019 showed increase in the M protein to 2.0 g/dL. Her free light chain assay showed increased kappa light chain to 142 mg/L with lambda light chain 2.9 mg/L, and elevated kappa/lambda ratio at 49.38. Restaging PET/CT on 07/13/2019 showed stable findings in the T1 lesion with FDG activity no greater than that of marrow background, consistent with successfully treated disease. There was no evidence of any new lesions. However, with the significant increase in the M protein and in the kappa free light chain, she was recommended to proceed with third line treatment with daratumumab in combination with carfilzomib and dexamethasone. She underwent placement of Port-A-Cath venous access device in preparation for that treatment. Her baseline echocardiogram showed normal left ventricular function with ejection fraction estimated at 60%. She returned to begin cycle 1 of daratumumab/carfilzomib/dexamethasone on 08/12/2019. The initial infusion of daratumumab was administered in divided doses over 2 days. She tolerated the treatment well. However, her day 8 treatment was complicated by nausea and profuse diaphoresis, which she attributed to the daratumumab. She was able to complete her day 9 carfilzomib treatment. Her day 15/16 treatment was withheld due to a drop in her white blood cell count to 2000 with her ANC at 1000. She did not have fever or other complications. She was given her week 3 daratumumab the following week, but I did opt to split the dosage over 2 days. She tolerated it with no adverse effects. She continued with cycle 2 on 09/11/2019 with the carfilzomib administered at a reduced dosage and with the daratumumab administered in a split dosage. She continued to have anemia, moderately severe neutropenia, and mild thrombocytopenia, but she was able to tolerate the treatment with acceptable toxicity. As of 10/02/2019 the M protein had decreased to 1.1 g/dL. She proceeded with cycle 3 on 10/09/2019. At cycle 3-day 15, on 10/22/2019, her carfilzomib was omitted due to neutropenia, ANC 1400. She did receive her 8th weekly infusion of daratumumab, administered as a single infusion. At that time she also was complaining increased shortness of breath, and a CT pulmonary angiogram showed small filling defects in both the right and left secondary pulmonary arteries consistent with thromboembolic disease. Altered perfusion was seen in those areas. As it did appear to be clinically significant, she was started on anticoagulation with apixaban. Ms. Alvarado is here today for follow-up. She is due for cycle 6 day 1 daratumumab and carfilzomib. She states overall she is doing pretty good. She denies any fever or chills. She has had no mouth sores or sore throat or difficulty swallowing in general. She states she has noticed she has been swallowing spit wrong sometimes causing her to cough or have to clear her throat. She denies trouble swallowing water or food. She states her appetite is better overall and she is eating alot of fresh vegetables and fruit. She denies any new pain. She states she has lower back pain, but it comes and goes and is no worse than her normal. She is continues to have fatigue but states she is not doing any activity either. She denies any rash. She has had no neuropathy. She denies any new concerns. Her ECOG is 1. Past Medical History: Anxiety/depression Chronic back pain Chronic migraine Coronary artery disease Fibromyalgia Gastroesophageal reflux disease Hypertension Hypothyroidism Past Surgical History: Arthroscopic left knee surgery Left breast biopsy for benign disease Removal of cyst from the right breast Right shoulder surgery Coronary angioplasty/stent placement in 2016 Colonoscopy in 2011 Allergies: Codeine Sulfate, LevoFLOXacin, and Vicodin. Medications: amLODIPine Besylate 1 Tablet (of 5 mg) Oral daily Body/Hair/Skin/Nails 2 Capsule Oral daily Ftllalwdxf-DYYE-Enfb-Cod 1 (97-275-22-30 mg) Capsule Oral four times a day PRN Cholecalciferol 2 (1000 Units) Capsule Oral daily Curcumin 95 1 (500 mg) Capsule Oral daily PRN Cymbalta 1 (60 mg) Capsule Delayed Release Particles Oral daily Eliquis 1 Tablet (of 5 mg) Oral b.i.d. Furosemide 1 Tablet (of 20 mg) Oral daily PRN Levothyroxine Sodium 1 (50 mcg) Tablet Oral daily Lisinopril 1 (25 mg) Tablet Oral daily LORazepam 0.5 - 1 (1 mg) Tablet Oral q 4 hours PRN Multivitamin Adult 1 Tablet Oral daily Nitroglycerin 1 (400 mcg/spray) Aerosol, solution Translingual PRN OxyCODONE HCl 1 (30 mg) Tablet Oral 5x/d PRN Pantoprazole Sodium 1 Tablet (of 40 mg) Tablet, enteric coated Oral daily Plavix 1 (75 mg) Tablet Oral daily Potassium Chloride ER 1 Tablet (of 10 meq) Tablet, controlled release Oral daily PRN Pravastatin Sodium 1 (40 mg) Tablet Oral daily Prochlorperazine Maleate 1 (10 mg) Tablet Oral four times a day PRN QUEtiapine Fumarate 2 Tablet (of 25 mg) Oral at bedtime Soma 1 (350 mg) Tablet Oral four times a day PRN Family History: Ms. Armenta's mother is alive: heart disease. Ms. Armenta's father is alive. Mother still living at age 87 and she is in relatively good health. She doesn't know about her biologic father. A brother is quadriplegic from a motor vehicle accident. A sister has bipolar disease. A maternal aunt had bladder cancer and another maternal aunt had ovarian cancer. Social History: Ms. Armenta is and she is retired. Ms. Armenta quit smoking 27 years ago but had smoked for 12 years. She drinks occasionally. Ms. Armenta reports the following support systems: lives alone, supportive family/friends willing to assist with needs, and adequate transportation available for expected visits. Her diet consists of regular meals. She indicates her activity level as: occasional exercise. She has a history of smoking for 25 years, in the range of 1-3 packs of cigarettes daily. She quit smoking in 1989. She has had just occasional alcohol use. Review Of Symptoms: Constitutional Denies fevers, chills, night sweats. She has had fatigue-no better but no worse than last visit. Allergic/Immunologic No reactions. Eyes Denies significant visual changes. No diplopia. No amaurosis. ENMT Denies changes in hearing, mouth sores, difficulty or changes in swallowing ability, and/or sinus drainage. Endocrine Hematologic/Lymphatic Denies easy bleeding. The patient denies any tender or palpable lymph nodes-intermittent bruising but stable. Respiratory shortness of breath better overall. Cardiovascular Denies anginal chest pain, palpitations or orthopnea. Gastrointestinal Denies nausea, vomiting, diarrhea, GI bleeding, or constipation. Denies change in bowel habits and/or stool color, no heartburn or early satiety. Genitourinary (F) No hematuria, hesitancy, incontinence, vaginal bleeding, discharge or other problems with urination. Musculoskeletal Denies joint swelling or redness. No decreased range of motion. States she is having joint pain off and on, but chronic and stable. Chronic lower back pain. Integumentary Denies chronic rashes, inflammation, ulcerations or skin changes. Neurologic Denies headache, blurred vision, and no areas of focal weakness or numbness. Normal gait. No sensory problems. Psychiatric Denies insomnia, depression, danelle or mood swings. Vital Signs: Performed on Jan 01, 2020 09:53 Height - 66.00 in Weight - 160.8 lbs (HIGH) BSA - 1.82 sq.m BMI - 25.95 Temperature - 98.0 F (LOW) Pulse - 74 /min Respiration - 18 /min BP - 137/68 mm(hg) O2 Sat - 97 % Pain - 7,1 - No physically strenuous activity, but ambulatory and able to carry out light or sedentary work (e.g. office work, light house work). (ECOG) Physical Examination: Constitutional Alert, oriented, no acute distress. Skin pink, warm and dry. Head Normocephalic; atraumatic. Eyes Conjunctivae and sclerae are clear and without icterus. Pupils are reactive and equal. Neck Supple without masses or thyromegaly. No jugular venous distension. Hematologic/Lymphatic No petechiae or purpura. Chest left chest wall venous access device insertion site unremarkable. Abdomen Non-tender, non-distended, no masses, ascites. Back/Spine Non-tender to palpation. Extremities No visible deformities, no cyanosis, clubbing or edema. Musculoskeletal No tenderness or swelling, normal range of motion without obvious weakness. Integumentary No rashes or lesions. Neurologic No sensory or motor deficits, normal cerebellar function, normal gait. Psychiatric Alert and oriented times three. Coherent speech. Verbalizes understanding of our discussions today. Laboratory:Test performed on Jan 01, 2020 09:09 Sodium 139 mmol/L Potassium 3.8 mmol/L Chloride 106 mmol/L CO2 26 mmol/L Anion Gap 10.8 BUN 12 mg/dL Creatinine 0.8 mg/dL Cr Clearance (Est) 79.7500 mL/min eGFR 71.1 mL/min Glucose 111 mg/dL Calcium 8.5 mg/dL Protein, Total 6.1 g/dL Albumin 3.7 g/dL Globulin 2.4 g/dL Bilirubin, Total 0.2 mg/dL ALT (SGPT) 12 U/L AST (SGOT) 17 U/L Alkaline Phosphatase 75 IU/L WBC 2.5 10 3/uL RBC 3.41 10 6/uL HGB 10.0 g/dL HCT 32.4 % MCV 95.0 fL MCH 29.3 pg MCHC 30.9 g/dL RDW 14.7 % Platelet Count 190 10 3/cmm MPV 9.5 fL Neutrophils 1.31 10 3/uL Lymphocytes 0.9 10 3/uL Monocytes 0.2 10 3/uL Eosinophils 0.0 10 3/uL Basophils 0.0 10 3/uL Neutrophil % 53.3 % Lymphocyte % 36.6 % Monocyte % 8.5 % Eosinophil % 1.2 % Basophils % 0.4 % NRBC % 0 % IgG 1191 mg/dL IgA < 50 mg/dL IgM < 25 mg/dL Test performed on Dec 04, 2019 09:14 TSH 2.06 uIU/mL Test performed on October 02, 2019 08:45 ESR (Sed Rate) 43 mm/hr Impression: 1. Patient with IgG kappa myeloma. Bone marrow aspiration/biopsy on 05/17/2017 showed 32% plasma cells, consistent with myeloma. The FISH panel showed gain of chromosome 1q, deletions of RB 1 and LAMP1, and gain of IG. Her baseline M protein was 2.87 g/dL. She was mildly anemic and she had significantly elevated sedimentation rate. She had normal renal function and negative 24-hour urine protein electrophoresis. Skeletal survey showed no lytic bone involvement. PET/CT and MRI both showed findings suspicious for involvement of the T1 vertebral body. She does not appear to be overtly symptomatic with it. 2. Her bone marrow also showed absent storage iron. Her other medical illnesses include: 3. Hypertension. 4. Hyperlipidemia. 5. Coronary artery disease with angioplasty/stent placement in February 2016. 6. Hypothyroidism. 7. GERD. 8. Degenerative arthritis/degenerative disease of the spine. 9. Fibromyalgia. 10. Anxiety/depression. She has been undergoing treatment with Velcade/Revlimid/dexamethasone, cycle 1 beginning on 09/11/2017. Overall, her treatment was very suboptimal due in part to multiple side effects which included skin eruption and neutropenia, among others. Compliance also had been somewhat of an issue. Beginning with her 6th cycle of treatment, on 02/05/2018, her treatment was changed to a 28 day schedule with Velcade administered at a reduced dosage on days 1, 8, and 15, with Revlimid administered at 10 mg daily on a 21/28 day schedule, and with dexamethasone administered weekly. She began cycle 7 on 03/05/2018. Her serum protein electrophoresis at that point did show a significant decrease in the M protein, to 1.41 g/dL. She then continued treatment at the same dosages, but intermittently she still had moderately severe neutropenia. She had otherwise been tolerating the treatment well. She began her 10th cycle of treatment on 05/30/2018. At that point her M protein had stabilized at just over 1 g/dL. She appeared stable clinically, and restaging PET/CT showed only mild FDG activity in the T1 lesion. There were no other areas of FDG uptake, and there was no significant change compared to the prior study in May 2017. As on 07/20/2018 her repeat protein electrophoresis showed a significant increase in the M protein to 1.4 g/dL, and her free light chain assay showed an increase in the kappa/lambda ratio to28.90. With those findings, she was advised to proceed with second line treatment. She indicated that she preferred not to have any IV medication. As such, on 08/29/2018 she began a trial of therapy with Revlimid/ixazomib/dexamethasone. Due to her previous toxicities, the Revlimid was initiated at a reduced dosage of 10 mg daily on a 21/28 day schedule. As of October 2018, following 3 cycles of treatment, her M protein had stabilized at 1.0 g/dL. She continued her same treatment, and as of 01/24/2019 her M protein and her free light chain had remained stable. Her clinical status at that time also appeared stable, and she continued treatment with Revlimid, ixazomib, and dexamethasone at the same dosages. As of 04/22/2019 her protein electrophoresis showed M protein stable at 0.9 g/dL, but her free light chain assay continued to show elevated kappa/lambda ratio at 15.37. Her quantitative immunoglobulin levels showed IgG 1165 mg/dL with IgA low at 10 mg/dL and IgM low at 17 mg/dL. Her CBC showed stable hemoglobin at 12 g, but her ANC was low at 700. As of 05/06/2019 her treatment was put on hold due to persistent neutropenia. Her 24 hour urine protein electrophoresis showed no monoclonal protein. As of her follow-up visit in June 2019 there was evidence of disease progression with significant increase in her M protein and and her kappa free light chain. Her restaging PET/CT showed stable findings at the T1 vertebral body lesion and no evidence of any new lesions. With those findings, she began third line treatment with daratumumab/carfilzomib/dexamethasone on 08/12/2019. She completed 1 cycle of treatment. She tolerated her day 1/day 2 treatments very well. She developed mulitple side effects following her day 8 treatment, which she attibuted to the daratumumab. She was able to complete her day 9 carfilzomib treatment. Her day 15/16 treatment was withheld due to neutropenia, ANC 1000. She completed her week 3 daratumumab the following week, but with the dosage split over 2 days. She tolerated it without adverse effects. On 09/11/2019 continued with cycle 2 of daratumumab/carfilzomib/dexamethasone with the carfilzomib administered at a reduced dosage and with the daratumumab administered in a split dosage. She continued to have anemia, moderately severe neutropenia, and mild thrombocytopenia, but she was able to tolerate the treatment with acceptable toxicity. She has had some evidence of response, though not dramatic, with her repeat protein electrophoresis on 10/02/2019 showing decline in the M protein, to 1.1 g/dL. She proceeded with cycle 3 on 10/09/2019. Her blood counts at that point had remained adequate, and her clinical status appeared stable. At cycle 3-day 15 her carfilzomib was omitted due to neutropenia, ANC 1400. She did receive her 8th weekly daratumumab infusion, administered as a single dose. At that time she complained of increased shortness of breath, and she was found on pulmonary angiogram to have bilateral pulmonary emboli. She is now on anticoagulation with apixaban. She continues to have moderately severe neutropenia. She otherwise appears stable clinically. Her abnormal protein???M protein was 1.1 on labs from 10/02/2019. That was recorded at 1.2 on 11/06/2019. It was noted to be 1.5 on 09/11/2019. Plan: 1. Delay cycle 6 day 1 darzalex/Kyprolis due to ANC of 1300. Continue dexamethasone 40 mg weekly. 2. Continue anticoagulation with apixaban 5 mg twice daily for bilateral pulmonary emboli. With her known coronary disease, she also is going to continue treatment with Plavix as she does have a history of CAD with stent placement. 3. CBC CMP from today were reviewed in detail and discussed with Ms. Armenta and a copy was given to her. WBC 2.5, hemoglobin 10.0, platelets 190,000 ANC is 1300 LFTs are normal creatinine is 0.8. SPEP with CLARY, QUIGS and free light chain assay are pending at this time. 4. She will continue her current pain medication as she states this is working well for her. She is using oxycodone IR 30 mg prn. Prescriptions per Dr Sanchez written scripts. 5. We will plan to see her back in 2 weeks for cycle 6-day 1 and 2. She will need a CBC, CMP at that time as well. I have asked to add a TSH to blood in lab to re evaluate her fatigue. Will request Vitamin D level as well, if can't be added to blood in lab, may draw with next labs. 6. She did have a routine bilateral screening mammogram on 11/28/[address] Garcia which was reported as BI-RADS 2-Benign. 6. Mrs. Armenta was instructed to contact us in interim should questions or problems arise. Signed By: Say Castillo-, [facility] Sean Sanchez MD <<Signature on File>>
[2020-01-01 11:59] LABS: 25 Hydroxy Vitamin D 25 ng/mL (30-100); Thyroid Stimulating Hormone 2.04 uIU/mL (0.27-4.20)
[2020-01-02 09:44] LABS: PROTEIN, TOTAL 5.7 g/dL (6.1-8.1)
[2020-01-02 14:44] LABS: ABNORMAL PROTEIN BAND 1 0.9 g/dL (NONE DETECTED); ABNORMAL PROTEIN BAND 2 0.1 g/dL (NONE DETECTED); ALBUMIN 3.3 g/dL (3.8-4.8); ALPHA 1 GLOBULIN 0.3 g/dL (0.2-0.3); ALPHA 2 GLOBULIN 0.6 g/dL (0.5-0.9); BETA 1 GLOBULIN 0.4 g/dL (0.4-0.6); BETA 2 GLOBULIN 0.2 g/dL (0.2-0.5)
[2020-01-02 15:54] LABS: KAPPA LIGHT CHAIN, FREE, SERUM 79.5 mg/L (3.3-19.4); LAMBDA LIGHT CHAIN, FREE, SERU 1.5 mg/L (5.7-26.3)
== END 2020-01-01 06:12 | disposition home or self-care (01) ==
LOC: ONCMED 06:13
PROVIDERS: PCP Internal Medicine; Visit Provider Nurse Practitioner
DX: C90.00 Multiple myeloma not having achieved remission (principal); I26.99 Other pulmonary embolism without acute cor pulmonale; R53.83 Other fatigue; D70.1 Agranulocytosis secondary to cancer chemotherapy; T45.1X5D Adverse effect of antineoplastic and immunosuppressive drugs, subsequent encounter; I10 Essential (primary) hypertension; E78.5 Hyperlipidemia, unspecified; I25.10 Atherosclerotic heart disease of native coronary artery without angina pectoris; E03.9 Hypothyroidism, unspecified; K21.9 Gastro-esophageal reflux disease without esophagitis; M19.90 Unspecified osteoarthritis, unspecified site; M48.9 Spondylopathy, unspecified; M79.7 Fibromyalgia; F41.8 Other specified anxiety disorders; Z79.01 Long term (current) use of anticoagulants; Z95.5 Presence of coronary angioplasty implant and graft; Z95.1 Presence of aortocoronary bypass graft; Z79.891 Long term (current) use of opiate analgesic; Z87.891 Personal history of nicotine dependence
CPT/HCPCS: 36591; 80053; 82306; 82784; 83883; 84155; 84165; 84443; 85025; 99214

== ENCOUNTER 2020-01-15 06:11 | Outpatient (CLI) | payer MEDICARE, SELFPAY ==
[2020-01-15 08:46] LABS: Basophils % 0.2 %; Hematocrit 33.6 % (37.0-47.0); Hemoglobin 10.6 g/dL (11.5-15.3); Lymphocytes # 1.4 10^3/uL (0.8-4.8); Lymphocytes % 33.9 %; Mean Corpuscular HGB Conc 31.5 g/dL (30.0-36.0); Mean Corpuscular Hemoglobin 30.1 pg (28.0-34.0); Mean Corpuscular Volume 95.5 fL (81-99); Mean Platelet Volume 9.1 fL (7.4-10.4); Monocytes # 0.3 10^3/uL (0.2-0.9); Monocytes % 7.7 %; Neutrophils # 2.28 10^3/uL (1.8-7.7); Nucleated Red Blood Cells % 0 %; Platelet Count 191 10^3/cmm (130-400); Red Blood Count 3.52 10^6/uL (4.1-5.3); Red Cell Distribution Width 15.4 % (12.1-15.1)
[2020-01-15 09:03] LABS: Alanine Aminotransferase 15 U/L (0-33); Albumin Level 3.8 g/dL (3.5-5.2); Alkaline Phosphatase 84 IU/L (35-105); Anion Gap 9.9 (5-19); Aspartate Amino Transferase 17 U/L (0-32); Blood Urea Nitrogen 11 mg/dL (8-23); Calcium 8.5 mg/dL (8.5-10.5); Carbon Dioxide 28 mmol/L (22-29); Chloride 103 mmol/L (98-107); Globulin 2.9 g/dL (1.3-4.6); Glomerular Filtration Rate 71.1 mL/min (90-130); Glucose 85 mg/dL (65-115); Osmolality Calculated 279 mOsm/kg (285-295); Potassium 3.9 mmol/L (3.5-5.1); Sodium 137 mmol/L (136-145); Total Bilirubin 0.3 mg/dL (0.15-1.2); Total Protein 6.7 g/dL (6.6-8.7)
[2020-01-15] MEDS: sodium chloride 0.9% 500 ML 999 ML IV (10:45)
[2020-01-15] MEDS: acetaminophen 325 mg Tablet 650 MG PO (11:00)
--- NOTE | 2020-01-19 09:54 | ONC FU_ITS ---
Dr. Sanchez Patient Follow-Up Note Patient: Karely Armenta Unit #: [id number]: [id number] Dicatated By: Sean Sanchez M.D.Date of Visit:Jan 15, 2020 Onc Med Follow-up/Prog Note Chief Complaint: Myeloma. History of Present Illness: This is a 69 year-old woman with IgG kappa myeloma. She was found to be moderately anemic in December 2016 when she was admitted to the hospital with pneumonia. She also reported having had an illness the preceding summer, in October or November, which may have been tick fever, but that was never confirmed. Her follow-up laboratory studies with Dr. Garcia on 05/03/2017 included CBC showing hemoglobin 11.9 g with white blood cell count 5100 and platelet count 155,000. Her sedimentation rate was significantly elevated at 94 mm/hour. The chem profile showed normal renal function with BUN 13 and creatinine 0.96 mg/dL. Calcium was normal at 9.0 mg/dL. The total protein was elevated at 9.0 g/dL with albumin 4.0 g/dL and calculated serum globulin elevated at 5.0 g/dL. Protein electrophoresis showed a monoclonal protein quantitating at 2.5 g/dL. Immunofixation showed an IgG kappa paraprotein measuring 2.87 g/dL. Hepatits screen was nonreactive to hepatitis C, hepatitis Bs antigen, and hepatitis B core total Ab referral. The hepatitis B surface antibody was < 3.10. LDH was normal at 149 U/L. The beta-2 microglobulin was slightly elevated at 0.420 mg/dL. I had seen her initially on 05/11/2017. Repeat protein electrophoresis with immunofixation prior to that visit, from 05/09/2017, showed IgG kappa monoclonal protein quantitating at 2.87 g/dL. The kappa light chain was elevated at 177.96 mg/L with lambda light chain 1.73 mg/L and kappa/lambda ratio elevated at 102. On her further evaluation there was no monoclonal protein detected in a 24-hour urine specimen. Skeletal survey on 05/11/2017 showed cervical and lumbar spondylosis and bilateral hip joint osteoarthritic changes. There was no radiographic evidence of multiple myeloma. She underwent bone marrow aspiration/biopsy on 05/17/2017. The cellularity was estimated at 70% with 32% plasma cells. Iron stores were noted to be absent. The FISH panel for myeloma showed gain of chromosome 1q, deletions of RB 1 and LAMP1, and gain of IG. The standard chromosome analysis was normal. Overall, the findings were consistent with plasma cell neoplasm/myeloma. Staging PET/CT on 06/03/2017 showed a single FDG avid osteolytic site in the T1 vertebral body which was felt to possibly represent multiple myeloma. She then had further evaluation with MRI of the spine on 07/12/2017. There were significant degenerative changes in the cervical spine which included moderate central canal stenosis at C4-C5, C5-C6, and C7 as well as bilateral nerve root encroachment at C5, C6, and C7. There were also degenerative changes in the lumbar spine with interval STIR signal abnormality and enhancement of T10-L5 spinous processes suggesting possible myelomatous changes. The thoracic spine showed subtle diffuse signal and enhancement abnormality involving the T1 vertebral body. In correlation with the PET/CT findings, this was felt to be suspicious for neoplastic process, including multiple myeloma. There were no actual lytic lesions identified. She had further laboratory evaluation on 07/26/2017. Her CBC at that point showed hemoglobin down slightly to 10.1 g with white blood cell count 3700 and platelet count 122,000. Chem profile showed borderline renal function with BUN 12 and creatinine 1.1 mg/dL and calculated GFR 49 mm/hour. Repeat protein electrophoresis showed M protein increased to 3.22 g/dL compared to 2.87 g/dL in April. Her quantitative immunoglobulin levels showed elevated IgG at 3800 mg/dL and IgA low at less than 8.00 and IgM low at 5.50 mg/dL. Her serum iron studies showed normal transferrin saturation at 30.9%, but ferritin was low at 14.4 ng/mL. B12 level was in low-normal range at 288 pg/mL. She is seen for a follow-up visit on 08/14/2017. At that point she did agree to begin treatment with Velcade/Revlimid/dexamethasone. She began her cycle 1 of Velcade/Revlimid/dexamethasone on 09/11/2017. At that time she also began prophylaxis with Bactrim and acyclovir. When she returned for her day 4 Velcade injection, she had developed a significant skin eruption, and she was advised to stop both the Revlimid and the Bactrim. At day 8 she had a reduction in the Velcade dosage to 1.0 mg/m???, as her neutrophil count had dropped to 800 and she also was experiencing some neuropathy. The Revlimid remained on hold. As of 10/17/2017 the ANC was still only 700, and I did opt to delay her 2nd cycle of treatment. Her repeat protein electrophoresis from 10/09/2017 did show a decline in her M protein to 2.71 g/dL compared to a pretreatment level of 3.73 g/dL. She eventually continued with cycle 2 on 10/23/2017 with the Velcade dosage reduced at 1.0 mg/m???. The Revlimid dosage was reduced to 10 mg. Despite the reductions, her cycle 3 was delayed again due to neutropenia. Her repeat protein electrophoresis on 11/20/2017 showed essentially stable M protein level at 2.77 g/dL. She continued with cycle 3 on 12/04/2017. Her neutrophil count at that point was back up to 1900. With that cycle she stopped Revlimid after 1 day and her day for Velcade was held due to multiple symptoms including sore throat, swelling in her throat, hoarseness, and cough. She did receive day 8 Velcade, but her day 11 treatment also was held. She eventually did continue with a 4th cycle of treatment on 12/26/2017 and with the 5th cycle on a 01/16/2018, but with both of those she showed up for only 3 of her scheduled Velcade injections. As of cycle 5 her M protein was still basically stable at 2.82 g/dL. Beginning with cycle 6 her treatment was changed to a 28 day cycle with Velcade administered on days 1, 8, and 15, with Revlimid administered on a day schedule, and with dexamethasone administered weekly. With that change her compliance improved. As of 03/05/2018 she began her 7th cycle of treatment. At that point her serum protein electrophoresis had shown a significant decline in the M protein, to 1.41 g/dL. With continued treatment there was further decline in the M protein. As of 05/08/2018 on day 8 of cycle 9 it had decreased to 0.84 g/dL. However, at day 1 of cycle 10 on 05/30/2018 it increased slightly to 1.11 g/dL. At cycle 10 day 22 on 06/19/2018 it had stabilized at 1.09 g/dL. Restaging PET/CT on 06/23/2018 showed the T1 lesion to be weakly FDG positive and unchanged from the previous study in May 2017. Given those findings, I did opt to put her further treatment on hold. Her repeat protein electrophoresis on 07/20/2018 showed an increase in the M protein to 1.4 g/dL. The free light chain assay showed elevated kappa light chain at 83.8 mg/L with lambda light chain 2.9 mg/L and elevated kappa/lambda ratio at 28.90. With those findings, she was advised to continue to second line treatment. She had indicated that she preferred not to be on any type of IV infusion. As such, I recommend a trial of therapy with Revlimid/ixazomib/dexamethasone. She began cycle 1 of Revlimid/ixazomib/dexamethasone on 08/29/2018. Due to her previous toxicities with Revlimid, it was initiated at a reduced dosage of 10 mg daily on a 21/28 day schedule with ixazomib dosed at 4 mg on days 18 and 15 and the dexamethasone dose at 40 mg weekly. She was able to tolerate it with acceptable toxicity, and she continued with cycle 2 on 09/26/2018 and with cycle 3 on 10/25/2018. Her repeat protein electrophoresis in September did show some decline in the M protein, to 1.0 g/dL. It then stabilized, and she continued her same treatment. As of 01/24/2019 the protein electrophoresis showed her quantitative M protein at 1.1 g/dL. The free light chain assay showed kappa light chain elevated at 105.1 mg/L, lambda light chain 7.0 mg/L, and elevated kappa/lambda ratio at 15.01. She continued treatment with Revlimid/ixazomib/dexamethasone. As of 04/22/2019 her protein electrophoresis showed M protein stable at 0.9 g/dL, but her free light chain assay continued to show elevated kappa/lambda ratio at 15.37. Her quantitative immunoglobulin levels showed IgG 1165 mg/dL with IgA low at 10 mg/dL and IgM low at 17 mg/dL. Her CBC showed stable hemoglobin at 12 g, but her ANC was low at 700. As of 05/06/2019 her treatment was put on hold due to persistent neutropenia. Her 24 urine protein electrophoresis showed no monoclonal protein. Her other medical illnesses include hypertension, hyperlipidemia, coronary artery disease, hypothyroidism, GERD, fibromyalgia, degenerative arthritis, and anxiety/depression. Her surgical/procedural history includes coronary angioplasty/stent placement 2015. She has arthroscopic left knee surgery, and she also has had surgery on the right shoulder. She has history of smoking for 25 years, from 1-3 packs of cigarettes daily. She quit smoking in 1989. She has had just occasional alcohol use. She is Sabianist, and she will not accept blood products. INTERIM HISTORY: In May 2019 she had taken a trip to [place], and while she was there she became very ill and required treatment for pneumonia. She returned here for a follow-up visit in June. Her repeat protein electrophoresis on 07/02/2019 showed increase in the M protein to 2.0 g/dL. Her free light chain assay showed increased kappa light chain to 142 mg/L with lambda light chain 2.9 mg/L, and elevated kappa/lambda ratio at 49.38. Restaging PET/CT on 07/13/2019 showed stable findings in the T1 lesion with FDG activity no greater than that of marrow background, consistent with successfully treated disease. There was no evidence of any new lesions. However, with the significant increase in the M protein and in the kappa free light chain, she was recommended to proceed with third line treatment with daratumumab in combination with carfilzomib and dexamethasone. She underwent placement of Port-A-Cath venous access device in preparation for that treatment. Her baseline echocardiogram showed normal left ventricular function with ejection fraction estimated at 60%. She returned to begin cycle 1 of daratumumab/carfilzomib/dexamethasone on 08/12/2019. The initial infusion of daratumumab was administered in divided doses over 2 days. She tolerated the treatment well. However, her day 8 treatment was complicated by nausea and profuse diaphoresis, which she attributed to the daratumumab. She was able to complete her day 9 carfilzomib treatment. Her day 15/16 treatment was withheld due to a drop in her white blood cell count to 2000 with her ANC at 1000. She did not have fever or other complications. She was given her week 3 daratumumab the following week, but I did opt to split the dosage over 2 days. She tolerated it with no adverse effects. She continued with cycle 2 on 09/11/2019 with the carfilzomib administered at a reduced dosage and with the daratumumab administered in a split dosage. She continued to have anemia, moderately severe neutropenia, and mild thrombocytopenia, but she was able to tolerate the treatment with acceptable toxicity. As of 10/02/2019 the M protein had decreased to 1.1 g/dL. She proceeded with cycle 3 on 10/09/2019. At cycle 3-day 15, on 10/22/2019, her carfilzomib was omitted due to neutropenia, ANC 1400. She did receive her 8th weekly infusion of daratumumab, administered as a single infusion. At that time she also was complaining increased shortness of breath, and a CT pulmonary angiogram showed small filling defects in both the right and left secondary pulmonary arteries consistent with thromboembolic disease. Altered perfusion was seen in those areas. As it did appear to be clinically significant, she was started on anticoagulation with apixaban. She continued with her 4th cycle of treatment on 11/06/2019 with the daratumumab administered at 2-week intervals. At that point her M protein was stable at 1.2 g/dL. The serum free light chain assay, though, did show a decline in her free kappa light chain from 143.7 to 100.6 mg/L. She began cycle 5 on 12/04/2019. Her M protein was down slightly, to 1.1 g/dL. She is seen for a followup visit. She has been feeling pretty good generally. Her energy is not been quite as good because of the hot weather. She is still doing light work. ECOG score is 1. She has good appetite. She has no fever or night sweats. She has a little bit of allergy related sinus symptoms and she also has had a little bit of sore throat. She does not complain of shortness of breath, cough, or chest pain. She has very occasional nausea. Bowel and bladder function have been okay. She has pain in her back and left hip, which is about the same. She has just occasional headache. She has no focal neurologic symptoms. Medications: amLODIPine Besylate 1 Tablet (of 5 mg) Oral daily, Body/Hair/Skin/Nails 2 Capsule Oral daily, Hhzkiwgiiy-FSDR-Lrsa-Cod 1 (78-543-56-30 mg) Capsule Oral four times a day PRN, Cholecalciferol 2 (1000 Units) Capsule Oral daily, Curcumin 95 1 (500 mg) Capsule Oral daily PRN, Cymbalta 1 (60 mg) Capsule Delayed Release Particles Oral daily, Eliquis 1 Tablet (of 5 mg) Oral b.i.d., Furosemide 1 Tablet (of 20 mg) Oral daily PRN, Levothyroxine Sodium 1 (50 mcg) Tablet Oral daily, Lisinopril 1 (25 mg) Tablet Oral daily, LORazepam 0.5 - 1 (1 mg) Tablet Oral q 4 hours PRN, Multivitamin Adult 1 Tablet Oral daily, Nitroglycerin 1 (400 mcg/spray) Aerosol, solution Translingual PRN, OxyCODONE HCl 1 (30 mg) Tablet Oral 5x/d PRN, Pantoprazole Sodium 1 Tablet (of 40 mg) Tablet, enteric coated Oral daily, Plavix 1 (75 mg) Tablet Oral daily, Potassium Chloride ER 1 Tablet (of 10 meq) Tablet, controlled release Oral daily PRN, Pravastatin Sodium 1 (40 mg) Tablet Oral daily, Prochlorperazine Maleate 1 (10 mg) Tablet Oral four times a day PRN, QUEtiapine Fumarate 2 Tablet (of 25 mg) Oral at bedtime, Soma 1 (350 mg) Tablet Oral four times a day PRN Allergies: Codeine Sulfate, LevoFLOXacin, and Vicodin. Review of Systems: Constitutional - Her energy is about the same. She has been doing some hiking. Her appetite is good and her weight is up a few pounds. No fever, night sweats, or hot flashes. ECOG score is 1, ENMT - No sinus congestion/drainage. No mouth sores. She had a slight sore throat a few days ago. No difficulty swallowing, Hematologic/Lymphatic - She bruises easily, Respiratory - No shortness of breath. No cough. No pleuritic pain or hemoptysis, Cardiovascular - No angina pain. No palpitations, Gastrointestinal - She has had a few episodes of nausea. No vomiting. She takes Pepcid for occasional heartburn. No diarrhea or constipation. No blood in the stool or black stools, Genitourinary (F) - No dysuria or hematuria. No urinary frequency. No urgency or incontinence, Musculoskeletal - She denies any new pain. She continues to have pain in her lower back and hip area, Integumentary - No skin complications, Neurologic - She has occasional headaches. She had an episodes of feeling lightheaded this mornings. No numbness or tingling. No other focal neurologic symptoms, Psychiatric - No anxiety or depression. No insomnia. Vital Signs: Performed on Jan 15, 2020 10:03 Height - 66.00 in Weight - 162.6 lbs (HIGH) BSA - 1.83 sq.m BMI - 26.24 Temperature - 98.4 F Pulse - 66 /min Respiration - 18 /min BP - 122/69 mm(hg) O2 Sat - 98 % Pain - 5 Physical Examination: Constitutional - She looks pretty good generally, Eyes - Sclerae nonicteric. Conjunctivae clear, ENMT - No lesions noted in the oral cavity, Hematologic/Lymphatic - No cervical, clavicular, or axillary adenopathy, Respiratory - Lungs are clear with good air movement bilaterally, Cardiovascular - Heart rhythm is regular. There is no murmur, gallop, or rub noted, Abdomen - Soft. Liver and spleen are not enlarged. There is no abdominal mass or ascites noted and there is no inguinal adenopathy, Extremities - No edema, Neurologic - No focal neurologic deficits noted. Lab/Imaging: Test performed on Jan 15, 2020 08:35 Sodium 137 mmol/L Potassium 3.9 mmol/L Chloride 103 mmol/L CO2 28 mmol/L Anion Gap 9.9 BUN 11 mg/dL Creatinine 0.8 mg/dL Cr Clearance (Est) 79.7500 mL/min eGFR 71.1 mL/min Glucose 85 mg/dL Calcium 8.5 mg/dL Protein, Total 6.7 g/dL Albumin 3.8 g/dL Globulin 2.9 g/dL Bilirubin, Total 0.3 mg/dL ALT (SGPT) 15 U/L AST (SGOT) 17 U/L Alkaline Phosphatase 84 IU/L WBC 4.0 10 3/uL RBC 3.52 10 6/uL HGB 10.6 g/dL HCT 33.6 % MCV 95.5 fL MCH 30.1 pg MCHC 31.5 g/dL RDW 15.4 % Platelet Count 191 10 3/cmm MPV 9.1 fL Neutrophils 2.28 10 3/uL Lymphocytes 1.4 10 3/uL Monocytes 0.3 10 3/uL Eosinophils 0.0 10 3/uL Basophils 0.0 10 3/uL Neutrophil % 57.0 % Lymphocyte % 33.9 % Monocyte % 7.7 % Eosinophil % 1.0 % Basophils % 0.2 % NRBC % 0 % Impression: 1. Patient with IgG kappa myeloma. Bone marrow aspiration/biopsy on 05/17/2017 showed 32% plasma cells, consistent with myeloma. The FISH panel showed gain of chromosome 1q, deletions of RB 1 and LAMP1, and gain of IG. Her baseline M protein was 2.87 g/dL. She was mildly anemic and she had significantly elevated sedimentation rate. She had normal renal function and negative 24-hour urine protein electrophoresis. Skeletal survey showed no lytic bone involvement. PET/CT and MRI both showed findings suspicious for involvement of the T1 vertebral body. She does not appear to be overtly symptomatic with it. 2. Her bone marrow also showed absent storage iron. Her other medical illnesses include: 3. Hypertension. 4. Hyperlipidemia. 5. Coronary artery disease with angioplasty/stent placement in February 2016. 6. Hypothyroidism. 7. GERD. 8. Degenerative arthritis/degenerative disease of the spine. 9. Fibromyalgia. 10. Anxiety/depression. She has been undergoing treatment with Velcade/Revlimid/dexamethasone, cycle 1 beginning on 09/11/2017. Overall, her treatment was very suboptimal due in part to multiple side effects which included skin eruption and neutropenia, among others. Compliance also had been somewhat of an issue. Beginning with her 6th cycle of treatment, on 02/05/2018, her treatment was changed to a 28 day schedule with Velcade administered at a reduced dosage on days 1, 8, and 15, with Revlimid administered at 10 mg daily on a 21/28 day schedule, and with dexamethasone administered weekly. She began cycle 7 on 03/05/2018. Her serum protein electrophoresis at that point did show a significant decrease in the M protein, to 1.41 g/dL. She then continued treatment at the same dosages, but intermittently she still had moderately severe neutropenia. She had otherwise been tolerating the treatment well. She began her 10th cycle of treatment on 05/30/2018. At that point her M protein had stabilized at just over 1 g/dL. She appeared stable clinically, and restaging PET/CT showed only mild FDG activity in the T1 lesion. There were no other areas of FDG uptake, and there was no significant change compared to the prior study in May 2017. As on 07/20/2018 her repeat protein electrophoresis showed a significant increase in the M protein to 1.4 g/dL, and her free light chain assay showed an increase in the kappa/lambda ratio to28.90. With those findings, she was advised to proceed with second line treatment. She indicated that she preferred not to have any IV medication. As such, on 08/29/2018 she began a trial of therapy with Revlimid/ixazomib/dexamethasone. Due to her previous toxicities, the Revlimid was initiated at a reduced dosage of 10 mg daily on a 21/28 day schedule. As of October 2018, following 3 cycles of treatment, her M protein had stabilized at 1.0 g/dL. She continued her same treatment, and as of 01/24/2019 her M protein and her free light chain had remained stable. Her clinical status at that time also appeared stable, and she continued treatment with Revlimid, ixazomib, and dexamethasone at the same dosages. As of 04/22/2019 her protein electrophoresis showed M protein stable at 0.9 g/dL, but her free light chain assay continued to show elevated kappa/lambda ratio at 15.37. Her quantitative immunoglobulin levels showed IgG 1165 mg/dL with IgA low at 10 mg/dL and IgM low at 17 mg/dL. Her CBC showed stable hemoglobin at 12 g, but her ANC was low at 700. As of 05/06/2019 her treatment was put on hold due to persistent neutropenia. Her 24 hour urine protein electrophoresis showed no monoclonal protein. As of her follow-up visit in June 2019 there was evidence of disease progression with significant increase in her M protein and and her kappa free light chain. Her restaging PET/CT showed stable findings at the T1 vertebral body lesion and no evidence of any new lesions. With those findings, she began third line treatment with daratumumab/carfilzomib/dexamethasone on 08/12/2019. She has now completed 1 cycle of treatment. She tolerated her day 1/day 2 treatments very well. She developed mulitple side effects following her day 8 treatment, which she attibuted to the daratumumab. She was able to complete her day 9 carfilzomib treatment. Her day 15/16 treatment was withheld due to neutropenia, ANC 1000. She completed her week 3 daratumumab the following week, but with the dosage split over 2 days. She tolerated it without adverse effects. On 09/11/2019 continued with cycle 2 of daratumumab/carfilzomib/dexamethasone with the carfilzomib administered at a reduced dosage and with the daratumumab administered in a split dosage. She continued to have anemia, moderately severe neutropenia, and mild thrombocytopenia, but she was able to tolerate the treatment with acceptable toxicity. She has had some evidence of response, though not dramatic, with her repeat protein electrophoresis on 10/02/2019 showing decline in the M protein, to 1.1 g/dL. She proceeded with cycle 3 on 10/09/2019. Her blood counts at that point had remained adequate, and her clinical status appeared stable. At cycle 3-day 15 her carfilzomib was omitted due to neutropenia, ANC 1400. She did receive her 8th weekly daratumumab infusion, administered as a single dose. At that time she complained of increased shortness of breath, and she was found on pulmonary angiogram to have bilateral pulmonary emboli. She began on anticoagulation with apixaban. She continued to have moderately severe neutropenia, but she otherwise appeared stable clinically. She continued with her 4th cycle of treatment on 11/06/2019 with the daratumumab administered at 2-week intervals. At that point her M protein was stable at 1.2 g/dL. It was uncertain to what extent that may have reflected residual disease or monoclonal protein associated with the daratumumab. The serum free light chain assay had shown a decline in her free kappa light chain from 143.7 to 100.6 mg/L. She continued with cycle 5 on 12/04/2019. Thus far she has continued to tolerate her treatment with acceptable toxicity, and she has had gradual decline in the M protein and in the serum free kappa light chain. Her overall clinical status appears stable. Plan: She will continue with cycle 6 of daratumumab in combination with carfilzomib and dexamethasone. The dosages remain the same. The daratumumab remains at the 2-week interval. She continues anticoagulation with apixaban 5 mg twice daily. She will return for treatment in 1 week and in 2 weks. She will be scheduled for a follow-up visit in 4 weeks. Her repeat echocardiogram is pending. Signed By: Sean Sanchez M.D. <<Signature on File>>
== END 2020-01-15 06:12 | disposition home or self-care (01) ==
LOC: ONCMED 06:14
PROVIDERS: PCP Internal Medicine; Visit Provider Internal Medicine Medical Oncology
DX: Z51.12 Encounter for antineoplastic immunotherapy (principal); C90.00 Multiple myeloma not having achieved remission; Z79.01 Long term (current) use of anticoagulants; Z79.899 Other long term (current) drug therapy; Z86.711 Personal history of pulmonary embolism
CPT/HCPCS: 80053; 85025; 96361; 96367; 96413; 96415; 96417; 99214; J1200; J2405; J7040; J9047; J9145

== ENCOUNTER 2020-01-16 06:23 | Outpatient (CLI) | payer MEDICARE, SELFPAY ==
[2020-01-16] MEDS: acetaminophen 325 mg Tablet 650 MG PO (10:26)
[2020-01-16] MEDS: sodium chloride 0.9% 500 ML 999 ML IV (10:26)
[2020-01-16] MEDS: palonosetron 0.25 mg/5 mL SDV IV (10:27)
== END 2020-01-16 06:24 | disposition home or self-care (01) ==
LOC: ONCMED 06:25
PROVIDERS: PCP Internal Medicine; Visit Provider Internal Medicine Medical Oncology
DX: Z51.11 Encounter for antineoplastic chemotherapy (principal); C90.00 Multiple myeloma not having achieved remission; D47.2 Monoclonal gammopathy; D70.1 Agranulocytosis secondary to cancer chemotherapy; T45.1X5A Adverse effect of antineoplastic and immunosuppressive drugs, initial encounter
CPT/HCPCS: 96361; 96367; 96375; 96413; J1200; J2469; J7040; J9047

== ENCOUNTER 2020-01-17 14:38 | Outpatient (CLI) | payer MEDICARE, SELFPAY ==
--- NOTE | 2020-01-17 14:42 | USCV_ITS ---
Karely Armenta Age: 69 Gender: F : 1950 Exam Date: 01/17/2020 15:19 Ordering Phys: Sean Sanchez MD Technologist: Leann Gonzalez Exam Location: [facility] [place] Indication: HIGH RISK MEDS BP: 133 / 70 HR: 72 Rhythm: Sinus Technical Quality: Adequate MEASUREMENTS (Male / Female) Normal Values 2D ECHO LV Diastolic Diameter PLAX 4.9 cm 4.2 - 5.9 / 3.9 - 5.3 cm LV Systolic Diameter PLAX 3.8 cm LV Chamber Size 3.1 cm IVS Diastolic Thickness 1.1 cm 0.6 - 1.0 / 0.6 - 0.9 cm IVS Systolic Thickness 1.2 cm LVPW Diastolic Thickness 0.9 cm 0.6 - 1.0 / 0.6 - 0.9 cm LVPW Systolic Thickness 1.2 cm RV Chamber Size 2.9 cm LVOT Diameter 2.1 cm LV Ejection Fraction 2D Teich 45.4 % LV Ejection Fraction MOD 2C 61.9 % LV Ejection Fraction 2C AL 63.6 % LA Diameter 3.4 cm LA Width 3.4 cm LA Height 5.5 cm RA Width 2.8 cm RA Height 4.7 cm Aorta at Sinotubular Diameter 2.9 cm M-MODE LV Diastolic Diameter MM 4.5 cm 4.2 - 5.9 / 3.9 - 5.3 cm LV Systolic Diameter MM 2.9 cm LV Ejection Fraction MM Teich 65.9 % IVS Diastolic Thickness MM 0.9 cm 0.6 - 1.0 / 0.6 - 0.9 cm IVS Systolic Thickness MM 1.3 cm LVPW Diastolic Thickness MM 1.3 cm 0.6 - 1.0 / 0.6 - 0.9 cm LVPW Systolic Thickness MM 1.5 cm RV Diastolic Diameter MM 1.5 cm Aortic Annulus Diameter 2.8 cm LA Ao Ratio MM 1.2 MV E Point Septal Separation 0.6 cm DOPPLER AV Peak Velocity 197.0 cm/s LVOT Peak Velocity 75.0 cm/s AV Area Cont Eq vti 1.4 cm squared AV Area Cont Eq pk 1.3 cm squared MV Area PHT 3.9 cm squared Mitral E to A Ratio 1.0 MV E' Velocity 17.0 cm/s Mitral E to MV E' Ratio 5.0 Mitral E to LV E' Lateral Ratio 4.4 Mitral E to LV E' Septal Ratio 5.9 TR Peak Velocity 441.9 cm/s TR Peak Gradient 78.1 mmHg TR Mean Velocity 343.1 cm/s TR Mean Gradient 50.1 mmHg TR Velocity Time Integral 160.1 cm TV Peak E Velocity 56.0 cm/s Right Atrial Pressure 3.0 mmHg Pulmonary Artery Systolic Pressu 81.1 mmHg PV Peak Velocity 66.0 cm/s RV Acceleration Time 0.2 s RV Ejection Time 0.4 s RV AcT/ET 0.4 FINDINGS Left Ventricle Normal left ventricular size and systolic function, EF 62 %. No regional wall motion abnormalities. Right Ventricle The right ventricle is normal in size and function. Right Atrium The right atrium is normal in size. Left Atrium Mildly increased left atrial size. Mitral Valve Thickened mitral valve. Moderate mitral annular calcification. Mild mitral valve regurgitation. Aortic Valve Thickened aortic valve. Trace aortic valve regurgitation. Tricuspid Valve Moderate tricuspid valve regurgitation. Pulmonic Valve No gross abnormalities noted Pericardium No pericardial effusion. Aorta Normal ascending aorta dimension. CONCLUSIONS Normal left ventricular size and systolic function, EF 62 %. No regional wall motion abnormalities. Mildly increased left atrial size. Thickened mitral valve. Moderate mitral annular calcification. Thickened aortic valve. Trace aortic valve regurgitation. Mild mitral valve regurgitation. Moderate tricuspid valve regurgitation. Severe pulmonary hypertension with estimated pulmonary artery peak systolic pressure of 81 mmHg There is no pericardial effusion. Compared to the study from 07/23/2019, the pulmonary hypertension appears to be new. However because of the difference in the technical quality of the study this cannot be ascertained Dr Terry Melton MD [facility] (Electronically Signed) Final Date: 17 January 2020 19:19 S
== END 2020-01-17 14:39 | disposition home or self-care (01) ==
LOC: US 14:40
PROVIDERS: PCP Internal Medicine; Visit Provider Internal Medicine Medical Oncology
DX: Z79.899 Other long term (current) drug therapy (principal); I25.10 Atherosclerotic heart disease of native coronary artery without angina pectoris; I08.3 Combined rheumatic disorders of mitral, aortic and tricuspid valves; I27.20 Pulmonary hypertension, unspecified
CPT/HCPCS: 93306

== ENCOUNTER 2020-01-22 06:13 | Outpatient (CLI) | payer MEDICARE, SELFPAY ==
[2020-01-22 09:29] LABS: Eosinophils % 1.2 %; Hematocrit 30.1 % (37.0-47.0); Hemoglobin 9.4 g/dL (11.5-15.3); Lymphocytes # 1.1 10^3/uL (0.8-4.8); Lymphocytes % 31.2 %; Mean Corpuscular HGB Conc 31.2 g/dL (30.0-36.0); Mean Corpuscular Hemoglobin 30.2 pg (28.0-34.0); Mean Corpuscular Volume 96.8 fL (81-99); Mean Platelet Volume 10.7 fL (7.4-10.4); Monocytes # 0.3 10^3/uL (0.2-0.9); Monocytes % 8.8 %; Neutrophils # 1.99 10^3/uL (1.8-7.7); Neutrophils % 58.5 %; Nucleated Red Blood Cells % 0 %; Platelet Count 118 10^3/cmm (130-400); Red Blood Count 3.11 10^6/uL (4.1-5.3); Red Cell Distribution Width 15.7 % (12.1-15.1); White Blood Count 3.4 10^3/uL (4.0-10.0)
[2020-01-22] MEDS: sodium chloride 0.9% 500 ML 999 ML IV (09:56)
[2020-01-22] MEDS: acetaminophen 325 mg Tablet 650 MG PO (10:25)
== END 2020-01-22 06:14 | disposition home or self-care (01) ==
LOC: ONCMED 06:16
PROVIDERS: PCP Internal Medicine; Visit Provider Internal Medicine Medical Oncology
DX: Z51.11 Encounter for antineoplastic chemotherapy (principal); C90.00 Multiple myeloma not having achieved remission
CPT/HCPCS: 85025; 96361; 96367; 96413; J1200; J2405; J7040; J9047

== ENCOUNTER 2020-01-23 06:17 | Outpatient (CLI) | payer MEDICARE, SELFPAY ==
[2020-01-23] MEDS: palonosetron 0.25 mg/5 mL SDV IV (10:55)
[2020-01-23] MEDS: sodium chloride 0.9% 500 ML 75 ML IV (10:55)
[2020-01-23] MEDS: dexamethasone 4 mg Tablet 20 MG PO (10:57)
== END 2020-01-23 06:18 | disposition home or self-care (01) ==
LOC: ONCMED 06:19
PROVIDERS: PCP Internal Medicine; Visit Provider Internal Medicine Medical Oncology
DX: Z51.11 Encounter for antineoplastic chemotherapy (principal); C90.00 Multiple myeloma not having achieved remission; D47.2 Monoclonal gammopathy; D70.1 Agranulocytosis secondary to cancer chemotherapy; T45.1X5A Adverse effect of antineoplastic and immunosuppressive drugs, initial encounter; F41.9 Anxiety disorder, unspecified; F32.9 Major depressive disorder, single episode, unspecified; G89.29 Other chronic pain; M54.5 Low back pain; G43.909 Migraine, unspecified, not intractable, without status migrainosus; I25.10 Atherosclerotic heart disease of native coronary artery without angina pectoris; M79.7 Fibromyalgia; K21.9 Gastro-esophageal reflux disease without esophagitis; I10 Essential (primary) hypertension; E03.9 Hypothyroidism, unspecified
CPT/HCPCS: 96361; 96367; 96375; 96413; J1200; J2469; J7040; J8540; J9047

== ENCOUNTER 2020-01-29 09:11 | Outpatient (CLI) | payer MEDICARE, SELFPAY ==
[2020-01-29 10:03] LABS: Eosinophils % 1.3 %; Hematocrit 33.6 % (37.0-47.0); Hemoglobin 10.7 g/dL (11.5-15.3); Lymphocytes # 1.1 10^3/uL (0.8-4.8); Lymphocytes % 34.4 %; Mean Corpuscular HGB Conc 31.8 g/dL (30.0-36.0); Mean Corpuscular Volume 97.4 fL (81-99); Mean Platelet Volume 11.1 fL (7.4-10.4); Monocytes # 0.4 10^3/uL (0.2-0.9); Monocytes % 11.7 %; Neutrophils # 1.67 10^3/uL (1.8-7.7); Neutrophils % 52.6 %; Nucleated Red Blood Cells % 0 %; Platelet Count 151 10^3/cmm (130-400); Red Blood Count 3.45 10^6/uL (4.1-5.3); Red Cell Distribution Width 16.5 % (12.1-15.1); White Blood Count 3.2 10^3/uL (4.0-10.0)
[2020-01-29] MEDS: sodium chloride 0.9% 500 ML 999 ML IV (11:09)
[2020-01-29] MEDS: acetaminophen 325 mg Tablet 650 MG PO (11:09)
--- NOTE | 2020-02-02 13:56 | ONC FU_ITS ---
[facility] Patient Note Patient: Karely Armenta Unit #: [id number]: [id number] Dictated By: Say CastilloDate of Visit: Jan 29, 2020 Onc MED Follow-Up/Prog Note Chief Complaint: Myeloma. History of Present Illness: Ms Armenta is a 69 year-old woman with IgG kappa myeloma. She was found to be moderately anemic in December 2016 when she was admitted to the hospital with pneumonia. She also reported having had an illness the preceding summer, in October or November, which may have been tick fever, but that was never confirmed. Her follow-up laboratory studies with Dr. Garcia on 05/03/2017 included CBC showing hemoglobin 11.9 g with white blood cell count 5100 and platelet count 155,000. Her sedimentation rate was significantly elevated at 94 mm/hour. The chem profile showed normal renal function with BUN 13 and creatinine 0.96 mg/dL. Calcium was normal at 9.0 mg/dL. The total protein was elevated at 9.0 g/dL with albumin 4.0 g/dL and calculated serum globulin elevated at 5.0 g/dL. Protein electrophoresis showed a monoclonal protein quantitating at 2.5 g/dL. Immunofixation showed an IgG kappa paraprotein measuring 2.87 g/dL. Hepatitis screen was nonreactive to hepatitis C, hepatitis Bs antigen, and hepatitis B core total Ab referral. The hepatitis B surface antibody was < 3.10. LDH was normal at 149 U/L. The beta-2 microglobulin was slightly elevated at 0.420 mg/dL. Dr Sanchez had seen her initially on 05/11/2017. Repeat protein electrophoresis with immunofixation prior to that visit, from 05/09/2017, showed IgG kappa monoclonal protein quantitating at 2.87 g/dL. The kappa light chain was elevated at 177.96 mg/L with lambda light chain 1.73 mg/L and kappa/lambda ratio elevated at 102. On her further evaluation there was no monoclonal protein detected in a 24-hour urine specimen. Skeletal survey on 05/11/2017 showed cervical and lumbar spondylosis and bilateral hip joint osteoarthritic changes. There was no radiographic evidence of multiple myeloma. She underwent bone marrow aspiration/biopsy on 05/17/2017. The cellularity was estimated at 70% with 32% plasma cells. Iron stores were noted to be absent. The FISH panel for myeloma showed gain of chromosome 1q, deletions of RB 1 and LAMP1, and gain of IG. The standard chromosome analysis was normal. Overall, the findings were consistent with plasma cell neoplasm/myeloma. Staging PET/CT on 06/03/2017 showed a single FDG avid osteolytic site in the T1 vertebral body which was felt to possibly represent multiple myeloma. She then had further evaluation with MRI of the spine on 07/12/2017. There were significant degenerative changes in the cervical spine which included moderate central canal stenosis at C4-C5, C5-C6, and C7 as well as bilateral nerve root encroachment at C5, C6, and C7. There were also degenerative changes in the lumbar spine with interval STIR signal abnormality and enhancement of T10-L5 spinous processes suggesting possible myelomatous changes. The thoracic spine showed subtle diffuse signal and enhancement abnormality involving the T1 vertebral body. In correlation with the PET/CT findings, this was felt to be suspicious for neoplastic process, including multiple myeloma. There were no actual lytic lesions identified. She had further laboratory evaluation on 07/26/2017. Her CBC at that point showed hemoglobin down slightly to 10.1 g with white blood cell count 3700 and platelet count 122,000. Chem profile showed borderline renal function with BUN 12 and creatinine 1.1 mg/dL and calculated GFR 49 mm/hour. Repeat protein electrophoresis showed M protein increased to 3.22 g/dL compared to 2.87 g/dL in April. Her quantitative immunoglobulin levels showed elevated IgG at 3800 mg/dL and IgA low at less than 8.00 and IgM low at 5.50 mg/dL. Her serum iron studies showed normal transferrin saturation at 30.9%, but ferritin was low at 14.4 ng/mL. B12 level was in low-normal range at 288 pg/mL. She is seen for a follow-up visit on 08/14/2017. At that point she did agree to begin treatment with Velcade/Revlimid/dexamethasone. She began her cycle 1 of Velcade/Revlimid/dexamethasone on 09/11/2017. At that time she also began prophylaxis with Bactrim and acyclovir. When she returned for her day 4 Velcade injection, she had developed a significant skin eruption, and she was advised to stop both the Revlimid and the Bactrim. At day 8 she had a reduction in the Velcade dosage to 1.0 mg/m???, as her neutrophil count had dropped to 800 and she also was experiencing some neuropathy. The Revlimid remained on hold. As of 10/17/2017 the ANC was still only 700, and I did opt to delay her 2nd cycle of treatment. Her repeat protein electrophoresis from 10/09/2017 did show a decline in her M protein to 2.71 g/dL compared to a pretreatment level of 3.73 g/dL. She eventually continued with cycle 2 on 10/23/2017 with the Velcade dosage reduced at 1.0 mg/m???. The Revlimid dosage was reduced to 10 mg. Despite the reductions, her cycle 3 was delayed again due to neutropenia. Her repeat protein electrophoresis on 11/20/2017 showed essentially stable M protein level at 2.77 g/dL. She continued with cycle 3 on 12/04/2017. Her neutrophil count at that point was back up to 1900. With that cycle she stopped Revlimid after 1 day and her day for Velcade was held due to multiple symptoms including sore throat, swelling in her throat, hoarseness, and cough. She did receive day 8 Velcade, but her day 11 treatment also was held. She eventually did continue with a 4th cycle of treatment on 12/26/2017 and with the 5th cycle on a 01/16/2018, but with both of those she showed up for only 3 of her scheduled Velcade injections. As of cycle 5 her M protein was still basically stable at 2.82 g/dL. Beginning with cycle 6 her treatment was changed to a 28 day cycle with Velcade administered on days 1, 8, and 15, with Revlimid administered on a 21/28 day schedule, and with dexamethasone administered weekly. With that change her compliance improved. As of 03/05/2018 she began her 7th cycle of treatment. At that point her serum protein electrophoresis had shown a significant decline in the M protein, to 1.41 g/dL. With continued treatment there was further decline in the M protein. As of 05/08/2018 on day 8 of cycle 9 it had decreased to 0.84 g/dL. However, at day 1 of cycle 10 on 05/30/2018 it increased slightly to 1.11 g/dL. At cycle 10 day 22 on 06/19/2018 it had stabilized at 1.09 g/dL. Restaging PET/CT on 06/23/2018 showed the T1 lesion to be weakly FDG positive and unchanged from the previous study in May 2017. Given those findings, it was opted to put her further treatment on hold. Her repeat protein electrophoresis on 07/20/2018 showed an increase in the M protein to 1.4 g/dL. The free light chain assay showed elevated kappa light chain at 83.8 mg/L with lambda light chain 2.9 mg/L and elevated kappa/lambda ratio at 28.90. With those findings, she was advised to continue to second line treatment. She had indicated that she preferred not to be on any type of IV infusion. As such, I recommend a trial of therapy with Revlimid/ixazomib/dexamethasone. She began cycle 1 of Revlimid/ixazomib/dexamethasone on 08/29/2018. Due to her previous toxicities with Revlimid, it was initiated at a reduced dosage of 10 mg daily on a 21/28 day schedule with ixazomib dosed at 4 mg on days 18 and 15 and the dexamethasone dose at 40 mg weekly. She was able to tolerate it with acceptable toxicity, and she continued with cycle 2 on 09/26/2018 and with cycle 3 on 10/25/2018. Her repeat protein electrophoresis in September did show some decline in the M protein, to 1.0 g/dL. It then stabilized, and she continued her same treatment. As of 01/24/2019 the protein electrophoresis showed her quantitative M protein at 1.1 g/dL. The free light chain assay showed kappa light chain elevated at 105.1 mg/L, lambda light chain 7.0 mg/L, and elevated kappa/lambda ratio at 15.01. She continued treatment with Revlimid/ixazomib/dexamethasone. As of 04/22/2019 her protein electrophoresis showed M protein stable at 0.9 g/dL, but her free light chain assay continued to show elevated kappa/lambda ratio at 15.37. Her quantitative immunoglobulin levels showed IgG 1165 mg/dL with IgA low at 10 mg/dL and IgM low at 17 mg/dL. Her CBC showed stable hemoglobin at 12 g, but her ANC was low at 700. As of 05/06/2019 her treatment was put on hold due to persistent neutropenia. Her 24 urine protein electrophoresis showed no monoclonal protein. Her other medical illnesses include hypertension, hyperlipidemia, coronary artery disease, hypothyroidism, GERD, fibromyalgia, degenerative arthritis, and anxiety/depression. Her surgical/procedural history includes coronary angioplasty/stent placement 2015. She has arthroscopic left knee surgery, and she also has had surgery on the right shoulder. She has history of smoking for 25 years, from 1-3 packs of cigarettes daily. She quit smoking in 1989. She has had just occasional alcohol use. She is Confucianist, and she will not accept blood products. INTERIM HISTORY: In May 2019 she had taken a trip to [place], and while she was there she became very ill and required treatment for pneumonia. She returned here for a follow-up visit in June. Her repeat protein electrophoresis on 07/02/2019 showed increase in the M protein to 2.0 g/dL. Her free light chain assay showed increased kappa light chain to 142 mg/L with lambda light chain 2.9 mg/L, and elevated kappa/lambda ratio at 49.38. Restaging PET/CT on 07/13/2019 showed stable findings in the T1 lesion with FDG activity no greater than that of marrow background, consistent with successfully treated disease. There was no evidence of any new lesions. However, with the significant increase in the M protein and in the kappa free light chain, she was recommended to proceed with third line treatment with daratumumab in combination with carfilzomib and dexamethasone. She underwent placement of Port-A-Cath venous access device in preparation for that treatment. Her baseline echocardiogram showed normal left ventricular function with ejection fraction estimated at 60%. She returned to begin cycle 1 of daratumumab/carfilzomib/dexamethasone on 08/12/2019. The initial infusion of daratumumab was administered in divided doses over 2 days. She tolerated the treatment well. However, her day 8 treatment was complicated by nausea and profuse diaphoresis, which she attributed to the daratumumab. She was able to complete her day 9 carfilzomib treatment. Her day 15/16 treatment was withheld due to a drop in her white blood cell count to 2000 with her ANC at 1000. She did not have fever or other complications. She was given her week 3 daratumumab the following week, but I did opt to split the dosage over 2 days. She tolerated it with no adverse effects. She continued with cycle 2 on 09/11/2019 with the carfilzomib administered at a reduced dosage and with the daratumumab administered in a split dosage. She continued to have anemia, moderately severe neutropenia, and mild thrombocytopenia, but she was able to tolerate the treatment with acceptable toxicity. As of 10/02/2019 the M protein had decreased to 1.1 g/dL. She proceeded with cycle 3 on 10/09/2019. At cycle 3-day 15, on 10/22/2019, her carfilzomib was omitted due to neutropenia, ANC 1400. She did receive her 8th weekly infusion of daratumumab, administered as a single infusion. At that time she also was complaining increased shortness of breath, and a CT pulmonary angiogram showed small filling defects in both the right and left secondary pulmonary arteries consistent with thromboembolic disease. Altered perfusion was seen in those areas. As it did appear to be clinically significant, she was started on anticoagulation with apixaban. She continued with her 4th cycle of treatment on 11/06/2019 with the daratumumab administered at 2-week intervals. At that point her M protein was stable at 1.2 g/dL. The serum free light chain assay, though, did show a decline in her free kappa light chain from 143.7 to 100.6 mg/L. She began cycle 5 on 12/04/2019. Her M protein was down slightly, to 1.1 g/dL. Ms. Alvarado is here today for follow-up. She is due for cycle 6-day 15 and 16 carfilzomib. She is also due for 2-week dosing of daratumumab. She states overall she feels good. She states she has had some fatigue but overall feels better. She states that some of the fatigue she thinks is because she has stopped taking some of her vitamins. She states she just ran out and just got them refilled. She states her breathing is stable. She states she has had some intermittent bloating in her abdomen and some abdominal gas. She states her bowels and bladder are working well. She states it is kind of comes and goes. She ran out of Soma for her back but was able to get this refilled recently and now her back pain is much better and is controlled. She states with controlling that she is able to get around and do more. She states her appetite is good. She denies any new shortness of breath orthopnea. She has had no fever or chills. She denies nausea or vomiting. She denies any neuropathy symptoms. She states her fingertips are occasionally tingly but that is not an issue and is not worsening. She denies mouth sores, sore throat or difficulty swallowing. She has had no alopecia. Her ECOG is 1. Past Medical History: Anxiety/depression Chronic back pain Chronic migraine Coronary artery disease Fibromyalgia Gastroesophageal reflux disease Hypertension Hypothyroidism Past Surgical History: Arthroscopic left knee surgery Left breast biopsy for benign disease Removal of cyst from the right breast Right shoulder surgery Coronary angioplasty/stent placement in 2016 Colonoscopy in 2011 Allergies: Codeine Sulfate, LevoFLOXacin, and Vicodin. Medications: amLODIPine Besylate 1 Tablet (of 5 mg) Oral daily Body/Hair/Skin/Nails 2 Capsule Oral daily Ecivqaguto-FUMU-Yneo-Cod 1 (41-438-30-30 mg) Capsule Oral four times a day PRN Cholecalciferol 2 (1000 Units) Capsule Oral daily Curcumin 95 1 (500 mg) Capsule Oral daily PRN Cymbalta 1 (60 mg) Capsule Delayed Release Particles Oral daily Eliquis 1 Tablet (of 5 mg) Oral b.i.d. Furosemide 1 Tablet (of 20 mg) Oral daily PRN Levothyroxine Sodium 1 (50 mcg) Tablet Oral daily Lisinopril 1 (25 mg) Tablet Oral daily LORazepam 0.5 - 1 (1 mg) Tablet Oral q 4 hours PRN Multivitamin Adult 1 Tablet Oral daily Nitroglycerin 1 (400 mcg/spray) Aerosol, solution Translingual PRN OxyCODONE HCl 1 (30 mg) Tablet Oral 5x/d PRN Pantoprazole Sodium 1 Tablet (of 40 mg) Tablet, enteric coated Oral daily Plavix 1 (75 mg) Tablet Oral daily Potassium Chloride ER 1 Tablet (of 10 meq) Tablet, controlled release Oral daily PRN Pravastatin Sodium 1 (40 mg) Tablet Oral daily Prochlorperazine Maleate 1 (10 mg) Tablet Oral four times a day PRN QUEtiapine Fumarate 2 Tablet (of 25 mg) Oral at bedtime Soma 1 (350 mg) Tablet Oral four times a day PRN Family History: Ms. Armenta's mother is alive: heart disease. Ms. Armenta's father is alive. Mother still living at age 87 and she is in relatively good health. She doesn't know about her biologic father. A brother is quadriplegic from a motor vehicle accident. A sister has bipolar disease. A maternal aunt had bladder cancer and another maternal aunt had ovarian cancer. Social History: Ms. Armenta is and she is retired. Ms. Armenta quit smoking 27 years ago but had smoked for 12 years. She drinks occasionally. Ms. Armenta reports the following support systems: lives alone, supportive family/friends willing to assist with needs, and adequate transportation available for expected visits. Her diet consists of regular meals. She indicates her activity level as: occasional exercise. She has a history of smoking for 25 years, in the range of 1-3 packs of cigarettes daily. She quit smoking in 1989. She has had just occasional alcohol use. Review Of Symptoms: Constitutional Denies fevers, chills, night sweats. She has had fatigue-no better but no worse than last visit. Allergic/Immunologic No reactions. Eyes Denies significant visual changes. No diplopia. No amaurosis. ENMT Denies changes in hearing, mouth sores, difficulty or changes in swallowing ability, and/or sinus drainage. Endocrine Hematologic/Lymphatic Denies easy bleeding. The patient denies any tender or palpable lymph nodes-intermittent bruising but stable. Respiratory shortness of breath better overall. Cardiovascular Denies anginal chest pain, palpitations or orthopnea. Gastrointestinal Denies nausea, vomiting, diarrhea, GI bleeding, or constipation. Denies change in bowel habits and/or stool color, no heartburn or early satiety. Some intermittent bloating/abdominal gas. Genitourinary (F) No hematuria, hesitancy, incontinence, vaginal bleeding, discharge or other problems with urination. Musculoskeletal Denies joint swelling or redness. No decreased range of motion. States she is having joint pain off and on, but chronic and stable. Chronic lower back pain. Integumentary Denies chronic rashes, inflammation, ulcerations or skin changes. Neurologic Denies headache, blurred vision, and no areas of focal weakness or numbness. Normal gait. No sensory problems. Psychiatric Denies insomnia, depression, danelle or mood swings. Vital Signs: Performed on Jan 29, 2020 10:06 Height - 66.00 in Weight - 163.0 lbs (HIGH) BSA - 1.83 sq.m BMI - 26.31 Temperature - 98.2 F (LOW) Pulse - 75 /min Respiration - 14 /min BP - 144/63 mm(hg) (HIGH) O2 Sat - 100 % Pain - 6,1 - No physically strenuous activity, but ambulatory and able to carry out light or sedentary work (e.g. office work, light house work). (ECOG) Physical Examination: Constitutional Alert, oriented, no acute distress. Skin pink, warm and dry. Head Normocephalic; atraumatic. Eyes Conjunctivae and sclerae are clear and without icterus. Pupils are reactive and equal. Neck Supple without masses or thyromegaly. No jugular venous distension. Hematologic/Lymphatic No petechiae or purpura. Respiratory Lungs are clear to auscultation without rhonchi or wheezing. Cardiovascular Regular rate and rhythm of heart without murmurs,clicks, gallops or rubs. Chest left chest wall venous access device insertion site unremarkable. Abdomen Non-tender, non-distended, no masses, ascites. Back/Spine Non-tender to palpation. Extremities No visible deformities, no cyanosis, clubbing or edema. Musculoskeletal No tenderness or swelling, normal range of motion without obvious weakness. Integumentary No rashes or lesions. Neurologic No sensory or motor deficits, normal cerebellar function, normal gait. Psychiatric Alert and oriented times three. Coherent speech. Verbalizes understanding of our discussions today. Laboratory:Test performed on Jan 29, 2020 09:23 WBC 3.2 10 3/uL RBC 3.45 10 6/uL HGB 10.7 g/dL HCT 33.6 % MCV 97.4 fL MCH 31.0 pg MCHC 31.8 g/dL RDW 16.5 % Platelet Count 151 10 3/cmm MPV 11.1 fL Neutrophils 1.67 10 3/uL Lymphocytes 1.1 10 3/uL Monocytes 0.4 10 3/uL Eosinophils 0.0 10 3/uL Basophils 0.0 10 3/uL Neutrophil % 52.6 % Lymphocyte % 34.4 % Monocyte % 11.7 % Eosinophil % 1.3 % Basophils % 0.0 % NRBC % 0 % Test performed on Jan 15, 2020 08:35 Sodium 137 mmol/L Potassium 3.9 mmol/L Chloride 103 mmol/L CO2 28 mmol/L Anion Gap 9.9 BUN 11 mg/dL Creatinine 0.8 mg/dL Cr Clearance (Est) 79.7500 mL/min eGFR 71.1 mL/min Glucose 85 mg/dL Calcium 8.5 mg/dL Protein, Total 6.7 g/dL Albumin 3.8 g/dL Globulin 2.9 g/dL Bilirubin, Total 0.3 mg/dL ALT (SGPT) 15 U/L AST (SGOT) 17 U/L Alkaline Phosphatase 84 IU/L Impression: 1. Patient with IgG kappa myeloma. Bone marrow aspiration/biopsy on 05/17/2017 showed 32% plasma cells, consistent with myeloma. The FISH panel showed gain of chromosome 1q, deletions of RB 1 and LAMP1, and gain of IG. Her baseline M protein was 2.87 g/dL. She was mildly anemic and she had significantly elevated sedimentation rate. She had normal renal function and negative 24-hour urine protein electrophoresis. Skeletal survey showed no lytic bone involvement. PET/CT and MRI both showed findings suspicious for involvement of the T1 vertebral body. She does not appear to be overtly symptomatic with it. 2. Her bone marrow also showed absent storage iron. Her other medical illnesses include: 3. Hypertension. 4. Hyperlipidemia. 5. Coronary artery disease with angioplasty/stent placement in February 2016. 6. Hypothyroidism. 7. GERD. 8. Degenerative arthritis/degenerative disease of the spine. 9. Fibromyalgia. 10. Anxiety/depression. She has been undergoing treatment with Velcade/Revlimid/dexamethasone, cycle 1 beginning on 09/11/2017. Overall, her treatment was very suboptimal due in part to multiple side effects which included skin eruption and neutropenia, among others. Compliance also had been somewhat of an issue. Beginning with her 6th cycle of treatment, on 02/05/2018, her treatment was changed to a 28 day schedule with Velcade administered at a reduced dosage on days 1, 8, and 15, with Revlimid administered at 10 mg daily on a 21/28 day schedule, and with dexamethasone administered weekly. She began cycle 7 on 03/05/2018. Her serum protein electrophoresis at that point did show a significant decrease in the M protein, to 1.41 g/dL. She then continued treatment at the same dosages, but intermittently she still had moderately severe neutropenia. She had otherwise been tolerating the treatment well. She began her 10th cycle of treatment on 05/30/2018. At that point her M protein had stabilized at just over 1 g/dL. She appeared stable clinically, and restaging PET/CT showed only mild FDG activity in the T1 lesion. There were no other areas of FDG uptake, and there was no significant change compared to the prior study in May 2017. As on 07/20/2018 her repeat protein electrophoresis showed a significant increase in the M protein to 1.4 g/dL, and her free light chain assay showed an increase in the kappa/lambda ratio to28.90. With those findings, she was advised to proceed with second line treatment. She indicated that she preferred not to have any IV medication. As such, on 08/29/2018 she began a trial of therapy with Revlimid/ixazomib/dexamethasone. Due to her previous toxicities, the Revlimid was initiated at a reduced dosage of 10 mg daily on a 21/28 day schedule. As of October 2018, following 3 cycles of treatment, her M protein had stabilized at 1.0 g/dL. She continued her same treatment, and as of 01/24/2019 her M protein and her free light chain had remained stable. Her clinical status at that time also appeared stable, and she continued treatment with Revlimid, ixazomib, and dexamethasone at the same dosages. As of 04/22/2019 her protein electrophoresis showed M protein stable at 0.9 g/dL, but her free light chain assay continued to show elevated kappa/lambda ratio at 15.37. Her quantitative immunoglobulin levels showed IgG 1165 mg/dL with IgA low at 10 mg/dL and IgM low at 17 mg/dL. Her CBC showed stable hemoglobin at 12 g, but her ANC was low at 700. As of 05/06/2019 her treatment was put on hold due to persistent neutropenia. Her 24 hour urine protein electrophoresis showed no monoclonal protein. As of her follow-up visit in June 2019 there was evidence of disease progression with significant increase in her M protein and and her kappa free light chain. Her restaging PET/CT showed stable findings at the T1 vertebral body lesion and no evidence of any new lesions. With those findings, she began third line treatment with daratumumab/carfilzomib/dexamethasone on 08/12/2019. She has now completed 1 cycle of treatment. She tolerated her day 1/day 2 treatments very well. She developed mulitple side effects following her day 8 treatment, which she attibuted to the daratumumab. She was able to complete her day 9 carfilzomib treatment. Her day 15/16 treatment was withheld due to neutropenia, ANC 1000. She completed her week 3 daratumumab the following week, but with the dosage split over 2 days. She tolerated it without adverse effects. On 09/11/2019 continued with cycle 2 of daratumumab/carfilzomib/dexamethasone with the carfilzomib administered at a reduced dosage and with the daratumumab administered in a split dosage. She continued to have anemia, moderately severe neutropenia, and mild thrombocytopenia, but she was able to tolerate the treatment with acceptable toxicity. She has had some evidence of response, though not dramatic, with her repeat protein electrophoresis on 10/02/2019 showing decline in the M protein, to 1.1 g/dL. She proceeded with cycle 3 on 10/09/2019. Her blood counts at that point had remained adequate, and her clinical status appeared stable. At cycle 3-day 15 her carfilzomib was omitted due to neutropenia, ANC 1400. She did receive her 8th weekly daratumumab infusion, administered as a single dose. At that time she complained of increased shortness of breath, and she was found on pulmonary angiogram to have bilateral pulmonary emboli. She began on anticoagulation with apixaban. She continued to have moderately severe neutropenia, but she otherwise appeared stable clinically. She continued with her 4th cycle of treatment on 11/06/2019 with the daratumumab administered at 2-week intervals. At that point her M protein was stable at 1.2 g/dL. It was uncertain to what extent that may have reflected residual disease or monoclonal protein associated with the daratumumab. The serum free light chain assay had shown a decline in her free kappa light chain from 143.7 to 100.6 mg/L. She continued with cycle 5 on 12/04/2019. Thus far she has continued to tolerate her treatment with acceptable toxicity, and she has had gradual decline in the M protein and in the serum free kappa light chain. Her overall clinical status appears stable. Plan: 1. Proceed with cycle 6-day 15 and 16 carfilzomib. She is also due for daratumumab. 2. Continue current antiemetics as they are working well. 3. She continues her dexamethasone-she currently takes it on the days of carfilzomib. 4. She also continues anticoagulation with apixaban 5 mg twice daily. 4. Mrs. Armenta was informed of her blood counts from today. Reviewed them in detail and a copy was given to her. WBC 3.2, hemoglobin 11.7, platelets 151,000. Her abnormal protein from 12/31/2000 is reported at 0.9 and is 0.1. On February 04, 2020 is reported at 1.1 and is 0.1. There was restricted band (M spike) migrating in the gamma region on both reports. Her kappa free light chain on 01/01/2020 was reported at 79.5. On September 11, 2019 was 143.7. 5. We will plan to see Mrs. Armenta back in 2 weeks with CBC CMP SPEP with CLARY, QUIGS, serum free light chain analysis. 6. Mrs. Armenta is instructed to contact us in interim should questions or problems arise. Signed By: Say Castillo-, [facility] Sean Sanchez MD <<Signature on File>>
== END 2020-01-29 09:12 | disposition home or self-care (01) ==
LOC: ONCMED 09:14
PROVIDERS: PCP Internal Medicine; Visit Provider Nurse Practitioner
DX: Z51.12 Encounter for antineoplastic immunotherapy (principal); C90.00 Multiple myeloma not having achieved remission; I10 Essential (primary) hypertension; E78.5 Hyperlipidemia, unspecified; I25.10 Atherosclerotic heart disease of native coronary artery without angina pectoris; E03.9 Hypothyroidism, unspecified; K21.9 Gastro-esophageal reflux disease without esophagitis; M47.9 Spondylosis, unspecified; M19.90 Unspecified osteoarthritis, unspecified site; M79.7 Fibromyalgia; F41.8 Other specified anxiety disorders; Z87.891 Personal history of nicotine dependence; Z95.5 Presence of coronary angioplasty implant and graft; Z95.1 Presence of aortocoronary bypass graft; Z79.899 Other long term (current) drug therapy; Z79.01 Long term (current) use of anticoagulants; Z79.52 Long term (current) use of systemic steroids
CPT/HCPCS: 85025; 96361; 96367; 96413; 96415; 96417; 99214; J1200; J2405; J7040; J9047; J9145

== ENCOUNTER 2020-01-30 09:53 | Outpatient (CLI) | payer MEDICARE, SELFPAY ==
[2020-01-30] MEDS: sodium chloride 0.9% 500 ML 999 ML IV (10:39)
[2020-01-30] MEDS: palonosetron 0.25 mg/5 mL SDV IV (11:23)
== END 2020-01-30 09:54 | disposition home or self-care (01) ==
LOC: ONCMED 09:55
PROVIDERS: PCP Internal Medicine; Visit Provider Nurse Practitioner
DX: Z51.11 Encounter for antineoplastic chemotherapy (principal); C90.00 Multiple myeloma not having achieved remission
CPT/HCPCS: 96361; 96367; 96375; 96413; J1200; J2469; J7040; J9047

== ENCOUNTER 2020-02-12 08:35 | Outpatient (CLI) | payer MEDICARE, SELFPAY ==
[2020-02-12 09:13] LABS: Basophils % 0.4 %; Eosinophils % 1.6 %; Hemoglobin 10.4 g/dL (11.5-15.3); Lymphocytes # 0.7 10^3/uL (0.8-4.8); Lymphocytes % 27.5 %; Mean Corpuscular HGB Conc 31.5 g/dL (30.0-36.0); Mean Corpuscular Hemoglobin 31.1 pg (28.0-34.0); Mean Corpuscular Volume 98.8 fL (81-99); Mean Platelet Volume 9.2 fL (7.4-10.4); Monocytes # 0.3 10^3/uL (0.2-0.9); Monocytes % 12.8 %; Neutrophils # 1.48 10^3/uL (1.8-7.7); Neutrophils % 57.3 %; Nucleated Red Blood Cells % 0 %; Platelet Count 188 10^3/cmm (130-400); Red Blood Count 3.34 10^6/uL (4.1-5.3); White Blood Count 2.6 10^3/uL (4.0-10.0)
[2020-02-12 09:27] LABS: Alanine Aminotransferase 11 U/L (0-33); Albumin Level 4.1 g/dL (3.5-5.2); Alkaline Phosphatase 85 IU/L (35-105); Aspartate Amino Transferase 17 U/L (0-32); Blood Urea Nitrogen 12 mg/dL (8-23); Calcium 8.9 mg/dL (8.5-10.5); Carbon Dioxide 26 mmol/L (22-29); Chloride 103 mmol/L (98-107); Globulin 2.7 g/dL (1.3-4.6); Glomerular Filtration Rate 62.1 mL/min (90-130); Glucose 91 mg/dL (65-115); Immunoglobulin IGA 50 mg/dL (70-400); Immunoglobulin IGG 1391 mg/dL (700-1600); Osmolality Calculated 285 mOsm/kg (285-295); Sodium 138 mmol/L (136-145); Total Bilirubin 0.3 mg/dL (0.15-1.2); Total Protein 6.8 g/dL (6.6-8.7)
[2020-02-12 09:43] LABS: Immunoglobulin IGM < 25 mg/dL (40-230)
--- NOTE | 2020-02-12 20:20 | ONC FU_ITS ---
Dr. Sanchez Patient Follow-Up Note Patient: Karely Armenta Unit #: [id number]: 1950 Dicatated By: Sean Sanchez M.D.Date of Visit:Feb 12, 2020 Onc Med Follow-up/Prog Note Chief Complaint: Myeloma. History of Present Illness: This is a 69 year-old woman with IgG kappa myeloma. She was found to be moderately anemic in December 2016 when she was admitted to the hospital with pneumonia. She also reported having had an illness the preceding summer, in October or November, which may have been tick fever, but that was never confirmed. Her follow-up laboratory studies with Dr. Garcia on 05/03/2017 included CBC showing hemoglobin 11.9 g with white blood cell count 5100 and platelet count 155,000. Her sedimentation rate was significantly elevated at 94 mm/hour. The chem profile showed normal renal function with BUN 13 and creatinine 0.96 mg/dL. Calcium was normal at 9.0 mg/dL. The total protein was elevated at 9.0 g/dL with albumin 4.0 g/dL and calculated serum globulin elevated at 5.0 g/dL. Protein electrophoresis showed a monoclonal protein quantitating at 2.5 g/dL. Immunofixation showed an IgG kappa paraprotein measuring 2.87 g/dL. Hepatits screen was nonreactive to hepatitis C, hepatitis Bs antigen, and hepatitis B core total Ab referral. The hepatitis B surface antibody was < 3.10. LDH was normal at 149 U/L. The beta-2 microglobulin was slightly elevated at 0.420 mg/dL. I had seen her initially on 05/11/2017. Repeat protein electrophoresis with immunofixation prior to that visit, from 05/09/2017, showed IgG kappa monoclonal protein quantitating at 2.87 g/dL. The kappa light chain was elevated at 177.96 mg/L with lambda light chain 1.73 mg/L and kappa/lambda ratio elevated at 102. On her further evaluation there was no monoclonal protein detected in a 24-hour urine specimen. Skeletal survey on 05/11/2017 showed cervical and lumbar spondylosis and bilateral hip joint osteoarthritic changes. There was no radiographic evidence of multiple myeloma. She underwent bone marrow aspiration/biopsy on 05/17/2017. The cellularity was estimated at 70% with 32% plasma cells. Iron stores were noted to be absent. The FISH panel for myeloma showed gain of chromosome 1q, deletions of RB 1 and LAMP1, and gain of IG. The standard chromosome analysis was normal. Overall, the findings were consistent with plasma cell neoplasm/myeloma. Staging PET/CT on 06/03/2017 showed a single FDG avid osteolytic site in the T1 vertebral body which was felt to possibly represent multiple myeloma. She then had further evaluation with MRI of the spine on 07/12/2017. There were significant degenerative changes in the cervical spine which included moderate central canal stenosis at C4-C5, C5-C6, and C7 as well as bilateral nerve root encroachment at C5, C6, and C7. There were also degenerative changes in the lumbar spine with interval STIR signal abnormality and enhancement of T10-L5 spinous processes suggesting possible myelomatous changes. The thoracic spine showed subtle diffuse signal and enhancement abnormality involving the T1 vertebral body. In correlation with the PET/CT findings, this was felt to be suspicious for neoplastic process, including multiple myeloma. There were no actual lytic lesions identified. She had further laboratory evaluation on 07/26/2017. Her CBC at that point showed hemoglobin down slightly to 10.1 g with white blood cell count 3700 and platelet count 122,000. Chem profile showed borderline renal function with BUN 12 and creatinine 1.1 mg/dL and calculated GFR 49 mm/hour. Repeat protein electrophoresis showed M protein increased to 3.22 g/dL compared to 2.87 g/dL in April. Her quantitative immunoglobulin levels showed elevated IgG at 3800 mg/dL and IgA low at less than 8.00 and IgM low at 5.50 mg/dL. Her serum iron studies showed normal transferrin saturation at 30.9%, but ferritin was low at 14.4 ng/mL. B12 level was in low-normal range at 288 pg/mL. She is seen for a follow-up visit on 08/14/2017. At that point she did agree to begin treatment with Velcade/Revlimid/dexamethasone. She began her cycle 1 of Velcade/Revlimid/dexamethasone on 09/11/2017. At that time she also began prophylaxis with Bactrim and acyclovir. When she returned for her day 4 Velcade injection, she had developed a significant skin eruption, and she was advised to stop both the Revlimid and the Bactrim. At day 8 she had a reduction in the Velcade dosage to 1.0 mg/m???, as her neutrophil count had dropped to 800 and she also was experiencing some neuropathy. The Revlimid remained on hold. As of 10/17/2017 the ANC was still only 700, and I did opt to delay her 2nd cycle of treatment. Her repeat protein electrophoresis from 10/09/2017 did show a decline in her M protein to 2.71 g/dL compared to a pretreatment level of 3.73 g/dL. She eventually continued with cycle 2 on 10/23/2017 with the Velcade dosage reduced at 1.0 mg/m???. The Revlimid dosage was reduced to 10 mg. Despite the reductions, her cycle 3 was delayed again due to neutropenia. Her repeat protein electrophoresis on 11/20/2017 showed essentially stable M protein level at 2.77 g/dL. She continued with cycle 3 on 12/04/2017. Her neutrophil count at that point was back up to 1900. With that cycle she stopped Revlimid after 1 day and her day for Velcade was held due to multiple symptoms including sore throat, swelling in her throat, hoarseness, and cough. She did receive day 8 Velcade, but her day 11 treatment also was held. She eventually did continue with a 4th cycle of treatment on 12/26/2017 and with the 5th cycle on a 01/16/2018, but with both of those she showed up for only 3 of her scheduled Velcade injections. As of cycle 5 her M protein was still basically stable at 2.82 g/dL. Beginning with cycle 6 her treatment was changed to a 28 day cycle with Velcade administered on days 1, 8, and 15, with Revlimid administered on a day schedule, and with dexamethasone administered weekly. With that change her compliance improved. As of 03/05/2018 she began her 7th cycle of treatment. At that point her serum protein electrophoresis had shown a significant decline in the M protein, to 1.41 g/dL. With continued treatment there was further decline in the M protein. As of 05/08/2018 on day 8 of cycle 9 it had decreased to 0.84 g/dL. However, at day 1 of cycle 10 on 05/30/2018 it increased slightly to 1.11 g/dL. At cycle 10 day 22 on 06/19/2018 it had stabilized at 1.09 g/dL. Restaging PET/CT on 06/23/2018 showed the T1 lesion to be weakly FDG positive and unchanged from the previous study in May 2017. Given those findings, I did opt to put her further treatment on hold. Her repeat protein electrophoresis on 07/20/2018 showed an increase in the M protein to 1.4 g/dL. The free light chain assay showed elevated kappa light chain at 83.8 mg/L with lambda light chain 2.9 mg/L and elevated kappa/lambda ratio at 28.90. With those findings, she was advised to continue to second line treatment. She had indicated that she preferred not to be on any type of IV infusion. As such, I recommend a trial of therapy with Revlimid/ixazomib/dexamethasone. She began cycle 1 of Revlimid/ixazomib/dexamethasone on 08/29/2018. Due to her previous toxicities with Revlimid, it was initiated at a reduced dosage of 10 mg daily on a 21/28 day schedule with ixazomib dosed at 4 mg on days 18 and 15 and the dexamethasone dose at 40 mg weekly. She was able to tolerate it with acceptable toxicity, and she continued with cycle 2 on 09/26/2018 and with cycle 3 on 10/25/2018. Her repeat protein electrophoresis in September did show some decline in the M protein, to 1.0 g/dL. It then stabilized, and she continued her same treatment. As of 01/24/2019 the protein electrophoresis showed her quantitative M protein at 1.1 g/dL. The free light chain assay showed kappa light chain elevated at 105.1 mg/L, lambda light chain 7.0 mg/L, and elevated kappa/lambda ratio at 15.01. She continued treatment with Revlimid/ixazomib/dexamethasone. As of 04/22/2019 her protein electrophoresis showed M protein stable at 0.9 g/dL, but her free light chain assay continued to show elevated kappa/lambda ratio at 15.37. Her quantitative immunoglobulin levels showed IgG 1165 mg/dL with IgA low at 10 mg/dL and IgM low at 17 mg/dL. Her CBC showed stable hemoglobin at 12 g, but her ANC was low at 700. As of 05/06/2019 her treatment was put on hold due to persistent neutropenia. Her 24 urine protein electrophoresis showed no monoclonal protein. Her other medical illnesses include hypertension, hyperlipidemia, coronary artery disease, hypothyroidism, GERD, fibromyalgia, degenerative arthritis, and anxiety/depression. Her surgical/procedural history includes coronary angioplasty/stent placement 2015. She has arthroscopic left knee surgery, and she also has had surgery on the right shoulder. She has history of smoking for 25 years, from 1-3 packs of cigarettes daily. She quit smoking in 1989. She has had just occasional alcohol use. She is [employer] orthodox, and she will not accept blood products. INTERIM HISTORY: In May 2019 she had taken a trip to [place], and while she was there she became very ill and required treatment for pneumonia. She returned here for a follow-up visit in June. Her repeat protein electrophoresis on 07/02/2019 showed increase in the M protein to 2.0 g/dL. Her free light chain assay showed increased kappa light chain to 142 mg/L with lambda light chain 2.9 mg/L, and elevated kappa/lambda ratio at 49.38. Restaging PET/CT on 07/13/2019 showed stable findings in the T1 lesion with FDG activity no greater than that of marrow background, consistent with successfully treated disease. There was no evidence of any new lesions. However, with the significant increase in the M protein and in the kappa free light chain, she was recommended to proceed with third line treatment with daratumumab in combination with carfilzomib and dexamethasone. She underwent placement of Port-A-Cath venous access device in preparation for that treatment. Her baseline echocardiogram showed normal left ventricular function with ejection fraction estimated at 60%. She returned to begin cycle 1 of daratumumab/carfilzomib/dexamethasone on 08/12/2019. The initial infusion of daratumumab was administered in divided doses over 2 days. She tolerated the treatment well. However, her day 8 treatment was complicated by nausea and profuse diaphoresis, which she attributed to the daratumumab. She was able to complete her day 9 carfilzomib treatment. Her day 15/16 treatment was withheld due to a drop in her white blood cell count to 2000 with her ANC at 1000. She did not have fever or other complications. She was given her week 3 daratumumab the following week, but I did opt to split the dosage over 2 days. She tolerated it with no adverse effects. She continued with cycle 2 on 09/11/2019 with the carfilzomib administered at a reduced dosage and with the daratumumab administered in a split dosage. She continued to have anemia, moderately severe neutropenia, and mild thrombocytopenia, but she was able to tolerate the treatment with acceptable toxicity. As of 10/02/2019 the M protein had decreased to 1.1 g/dL. She proceeded with cycle 3 on 10/09/2019. At cycle 3-day 15, on 10/22/2019, her carfilzomib was omitted due to neutropenia, ANC 1400. She did receive her 8th weekly infusion of daratumumab, administered as a single infusion. At that time she also was complaining increased shortness of breath, and a CT pulmonary angiogram showed small filling defects in both the right and left secondary pulmonary arteries consistent with thromboembolic disease. Altered perfusion was seen in those areas. As it did appear to be clinically significant, she was started on anticoagulation with apixaban. She continued with her 4th cycle of treatment on 11/06/2019 with the daratumumab administered at 2-week intervals. At that point her M protein was stable at 1.2 g/dL. The serum free light chain assay, though, did show a decline in her free kappa light chain from 143.7 to 100.6 mg/L. She began cycle 5 on 12/04/2019. Her M protein was down slightly, to 1.1 g/dL. As of 01/01/2020 it had further declined to 0.9 g/dL, and she continued with her 6th cycle. She is seen for a followup visit. She has been feeling pretty good generally. Her energy is fair. She has been doing quite a bit of work at home. She has good appetite. She has not had fever. She does have some hot flashes and sweating. She says her throat has flared up again, though it is not actually sore. She has some cough, attributable to allergies. Her breathing has been okay, she occasionally has to take deep breaths. She has had very little chest pain. She occasionally has nausea and she has a little bit of acid reflux. Bowel and bladder function have been okay. She has pain in her back and hip, and it has been a little bit worse due to the activity. She has had a few headaches. She occasionally has dizziness. She has no numbness/paresthesia or other focal neurologic symptoms. Medications: amLODIPine Besylate 1 Tablet (of 5 mg) Oral daily, Body/Hair/Skin/Nails 2 Capsule Oral daily, Uqbypufclm-NVGG-Qsic-Cod 1 (29-279-94-30 mg) Capsule Oral four times a day PRN, Cholecalciferol 2 (1000 Units) Capsule Oral daily, Curcumin 95 1 (500 mg) Capsule Oral daily PRN, Cymbalta 1 (60 mg) Capsule Delayed Release Particles Oral daily, Eliquis 1 Tablet (of 5 mg) Oral b.i.d., Furosemide 1 Tablet (of 20 mg) Oral daily PRN, Levothyroxine Sodium 1 (50 mcg) Tablet Oral daily, Lisinopril 1 (25 mg) Tablet Oral daily, LORazepam 0.5 - 1 (1 mg) Tablet Oral q 4 hours PRN, Multivitamin Adult 1 Tablet Oral daily, Nitroglycerin 1 (400 mcg/spray) Aerosol, solution Translingual PRN, OxyCODONE HCl 1 (30 mg) Tablet Oral 5x/d PRN, Pantoprazole Sodium 1 Tablet (of 40 mg) Tablet, enteric coated Oral daily, Plavix 1 (75 mg) Tablet Oral daily, Potassium Chloride ER 1 Tablet (of 10 meq) Tablet, controlled release Oral daily PRN, Pravastatin Sodium 1 (40 mg) Tablet Oral daily, Prochlorperazine Maleate 1 (10 mg) Tablet Oral four times a day PRN, QUEtiapine Fumarate 2 Tablet (of 25 mg) Oral at bedtime, Soma 1 (350 mg) Tablet Oral four times a day PRN Allergies: Codeine Sulfate, LevoFLOXacin, and Vicodin. Review of Systems: Constitutional - Her energy is fair. Appetite is good and weight is stable. No fever. She has hot flashes/sweating. ECOG score is 1, ENMT - She has a little bit of sinus congestion/drainage. No mouth sores. Her throat has flared up again, but it isn't actually sore. No difficulty swallowing, Hematologic/Lymphatic - She has some bruising, Respiratory - Her breathing is OK. She occasionally has to take a deep breath. She has cough attributable to allergies. No pleuritic pain or hemoptysis, Cardiovascular - She has very little chest pain. No palpitations, Gastrointestinal - No nausea or vomiting. She has a little bit of acid reflux. No diarrhea or constipation. No blood in the stool or black stools, Genitourinary (F) - No dysuria or hematuria. No urinary frequency. No urgency or incontinence, Musculoskeletal - She pain in her back and hip, Integumentary - No skin rash, Neurologic - She has had a few headaches. She occasionally has dizziness. No numbness or tingling. No other focal neurologic symptoms, Psychiatric - No anxiety or depression. She does not sleep well. Vital Signs: Performed on Feb 12, 2020 09:34 Height - 66.00 in Weight - 163.6 lbs (HIGH) BSA - 1.84 sq.m BMI - 26.41 Temperature - 98.8 F Pulse - 71 /min Respiration - 18 /min BP - 156/71 mm(hg) (HIGH) O2 Sat - 99 % Pain - 0 Physical Examination: Constitutional - She looks pretty good generally, Eyes - Sclerae nonicteric. Conjunctivae clear, ENMT - No lesions noted in the oral cavity, Hematologic/Lymphatic - She has prominent submandibular glands bilaterally. No cervical, clavicular, or axillary adenopathy, Respiratory - Lungs are clear with good air movement bilaterally, Cardiovascular - Heart rhythm is regular. There is no murmur, gallop, or rub noted, Abdomen - Soft. Liver and spleen are not enlarged. There is no abdominal mass or ascites noted and there is no inguinal adenopathy, Extremities - No edema, Neurologic - No focal neurologic deficits noted. Lab/Imaging: Test performed on Feb 12, 2020 08:45 Sodium 138 mmol/L Potassium 4.0 mmol/L Chloride 103 mmol/L CO2 26 mmol/L Anion Gap 13.0 BUN 12 mg/dL Creatinine 0.9 mg/dL Cr Clearance (Est) 70.8900 mL/min eGFR 62.1 mL/min Glucose 91 mg/dL Osmolality - Calculated 285 mOsm/kg Calcium 8.9 mg/dL Protein, Total 6.8 g/dL Albumin 4.1 g/dL Globulin 2.7 g/dL Bilirubin, Total 0.3 mg/dL ALT (SGPT) 11 U/L AST (SGOT) 17 U/L Alkaline Phosphatase 85 IU/L WBC 2.6 10 3/uL RBC 3.34 10 6/uL HGB 10.4 g/dL HCT 33.0 % MCV 98.8 fL MCH 31.1 pg MCHC 31.5 g/dL RDW 16.0 % Platelet Count 188 10 3/cmm MPV 9.2 fL Neutrophils 1.48 10 3/uL Lymphocytes 0.7 10 3/uL Monocytes 0.3 10 3/uL Eosinophils 0.0 10 3/uL Basophils 0.0 10 3/uL Neutrophil % 57.3 % Lymphocyte % 27.5 % Monocyte % 12.8 % Eosinophil % 1.6 % Basophils % 0.4 % NRBC % 0 % IgG 1391 mg/dL IgA 50 mg/dL IgM < 25 mg/dL Impression: 1. Patient with IgG kappa myeloma. Bone marrow aspiration/biopsy on 05/17/2017 showed 32% plasma cells, consistent with myeloma. The FISH panel showed gain of chromosome 1q, deletions of RB 1 and LAMP1, and gain of IG. Her baseline M protein was 2.87 g/dL. She was mildly anemic and she had significantly elevated sedimentation rate. She had normal renal function and negative 24-hour urine protein electrophoresis. Skeletal survey showed no lytic bone involvement. PET/CT and MRI both showed findings suspicious for involvement of the T1 vertebral body. She does not appear to be overtly symptomatic with it. 2. Her bone marrow also showed absent storage iron. Her other medical illnesses include: 3. Hypertension. 4. Hyperlipidemia. 5. Coronary artery disease with angioplasty/stent placement in February 2016. 6. Hypothyroidism. 7. GERD. 8. Degenerative arthritis/degenerative disease of the spine. 9. Fibromyalgia. 10. Anxiety/depression. She has been undergoing treatment with Velcade/Revlimid/dexamethasone, cycle 1 beginning on 09/11/2017. Overall, her treatment was very suboptimal due in part to multiple side effects which included skin eruption and neutropenia, among others. Compliance also had been somewhat of an issue. Beginning with her 6th cycle of treatment, on 02/05/2018, her treatment was changed to a 28 day schedule with Velcade administered at a reduced dosage on days 1, 8, and 15, with Revlimid administered at 10 mg daily on a 21/28 day schedule, and with dexamethasone administered weekly. She began cycle 7 on 03/05/2018. Her serum protein electrophoresis at that point did show a significant decrease in the M protein, to 1.41 g/dL. She then continued treatment at the same dosages, but intermittently she still had moderately severe neutropenia. She had otherwise been tolerating the treatment well. She began her 10th cycle of treatment on 05/30/2018. At that point her M protein had stabilized at just over 1 g/dL. She appeared stable clinically, and restaging PET/CT showed only mild FDG activity in the T1 lesion. There were no other areas of FDG uptake, and there was no significant change compared to the prior study in May 2017. As on 07/20/2018 her repeat protein electrophoresis showed a significant increase in the M protein to 1.4 g/dL, and her free light chain assay showed an increase in the kappa/lambda ratio to28.90. With those findings, she was advised to proceed with second line treatment. She indicated that she preferred not to have any IV medication. As such, on 08/29/2018 she began a trial of therapy with Revlimid/ixazomib/dexamethasone. Due to her previous toxicities, the Revlimid was initiated at a reduced dosage of 10 mg daily on a 21/28 day schedule. As of October 2018, following 3 cycles of treatment, her M protein had stabilized at 1.0 g/dL. She continued her same treatment, and as of 01/24/2019 her M protein and her free light chain had remained stable. Her clinical status at that time also appeared stable, and she continued treatment with Revlimid, ixazomib, and dexamethasone at the same dosages. As of 04/22/2019 her protein electrophoresis showed M protein stable at 0.9 g/dL, but her free light chain assay continued to show elevated kappa/lambda ratio at 15.37. Her quantitative immunoglobulin levels showed IgG 1165 mg/dL with IgA low at 10 mg/dL and IgM low at 17 mg/dL. Her CBC showed stable hemoglobin at 12 g, but her ANC was low at 700. As of 05/06/2019 her treatment was put on hold due to persistent neutropenia. Her 24 hour urine protein electrophoresis showed no monoclonal protein. As of her follow-up visit in June 2019 there was evidence of disease progression with significant increase in her M protein and and her kappa free light chain. Her restaging PET/CT showed stable findings at the T1 vertebral body lesion and no evidence of any new lesions. With those findings, she began third line treatment with daratumumab/carfilzomib/dexamethasone on 08/12/2019. She has now completed 1 cycle of treatment. She tolerated her day 1/day 2 treatments very well. She developed mulitple side effects following her day 8 treatment, which she attibuted to the daratumumab. She was able to complete her day 9 carfilzomib treatment. Her day 15/16 treatment was withheld due to neutropenia, ANC 1000. She completed her week 3 daratumumab the following week, but with the dosage split over 2 days. She tolerated it without adverse effects. On 09/11/2019 continued with cycle 2 of daratumumab/carfilzomib/dexamethasone with the carfilzomib administered at a reduced dosage and with the daratumumab administered in a split dosage. She continued to have anemia, moderately severe neutropenia, and mild thrombocytopenia, but she was able to tolerate the treatment with acceptable toxicity. She has had some evidence of response, though not dramatic, with her repeat protein electrophoresis on 10/02/2019 showing decline in the M protein, to 1.1 g/dL. She proceeded with cycle 3 on 10/09/2019. Her blood counts at that point had remained adequate, and her clinical status appeared stable. At cycle 3-day 15 her carfilzomib was omitted due to neutropenia, ANC 1400. She did receive her 8th weekly daratumumab infusion, administered as a single dose. At that time she complained of increased shortness of breath, and she was found on pulmonary angiogram to have bilateral pulmonary emboli. She began on anticoagulation with apixaban. She continued to have moderately severe neutropenia, but she otherwise appeared stable clinically. She continued with her 4th cycle of treatment on 11/06/2019 with the daratumumab administered at 2-week intervals. At that point her M protein was stable at 1.2 g/dL. It was uncertain to what extent that may have reflected residual disease or monoclonal protein associated with the daratumumab. The serum free light chain assay had shown a decline in her free kappa light chain from 143.7 to 100.6 mg/L. She continued with cycle 5 on 12/04/2019. Thus far she has continued to tolerate her treatment with acceptable toxicity. There has been a gradual decline in the M protein and in the serum free kappa light chain, so that she now just has a relatively small residual M protein. It is uncertain to what extent that may reflect residual myeloma versus the daratumumab. Her overall clinical status remains stable, but her CBC today does show moderately severe neutropenia, ANC 1500. Her progenitor pheresis is still pending. Plan: Due to the low neutrophil count, I will delay her treatment for 1 week. She will then continue with cycle 7 of daratumumab in combination with carfilzomib and dexamethasone. The dosages remain the same. She continues anticoagulation with apixaban 5 mg twice daily. She will return for treatment weekly for the next 2 weeks and for a follow-up visit in 3 weeks. Signed By: Sean Sanchez M.D. <<Signature on File>>
[2020-02-13 11:37] LABS: PROTEIN, TOTAL 6.6 g/dL (6.1-8.1)
[2020-02-13 13:33] LABS: ABNORMAL PROTEIN BAND 1 1.2 g/dL (NONE DETECTED); ALBUMIN 3.8 g/dL (3.8-4.8); ALPHA 1 GLOBULIN 0.3 g/dL (0.2-0.3); ALPHA 2 GLOBULIN 0.6 g/dL (0.5-0.9); BETA 1 GLOBULIN 0.4 g/dL (0.4-0.6); BETA 2 GLOBULIN 0.2 g/dL (0.2-0.5); GAMMA GLOBULIN 1.3 g/dL (0.8-1.7)
[2020-02-13 14:03] LABS: KAPPA LIGHT CHAIN, FREE, SERUM 111.4 mg/L (3.3-19.4); LAMBDA LIGHT CHAIN, FREE, SERU <1.5 mg/L (5.7-26.3)
== END 2020-02-12 08:36 | disposition home or self-care (01) ==
LOC: ONCMED 08:37
PROVIDERS: PCP Internal Medicine; Visit Provider Internal Medicine Medical Oncology
DX: C90.00 Multiple myeloma not having achieved remission (principal); D47.2 Monoclonal gammopathy; D70.1 Agranulocytosis secondary to cancer chemotherapy; T45.1X5A Adverse effect of antineoplastic and immunosuppressive drugs, initial encounter; I10 Essential (primary) hypertension; E78.5 Hyperlipidemia, unspecified; I25.10 Atherosclerotic heart disease of native coronary artery without angina pectoris; Z95.5 Presence of coronary angioplasty implant and graft; E03.9 Hypothyroidism, unspecified; M47.9 Spondylosis, unspecified; M79.7 Fibromyalgia; F41.9 Anxiety disorder, unspecified; F32.9 Major depressive disorder, single episode, unspecified
CPT/HCPCS: 36591; 80053; 82784; 83883; 84155; 84165; 85025; 99214

== ENCOUNTER 2020-02-19 06:00 | Outpatient (CLI) | payer MEDICARE, SELFPAY ==
[2020-02-19 10:00] LABS: Basophils % 0.3 %; Eosinophils # 0.1 10^3/uL (0.0-0.8); Eosinophils % 1.3 %; Hematocrit 35.7 % (37.0-47.0); Hemoglobin 11.4 g/dL (11.5-15.3); Lymphocytes # 1.2 10^3/uL (0.8-4.8); Lymphocytes % 31.1 %; Mean Corpuscular HGB Conc 31.9 g/dL (30.0-36.0); Mean Corpuscular Hemoglobin 31.7 pg (28.0-34.0); Mean Corpuscular Volume 99.2 fL (81-99); Mean Platelet Volume 9.3 fL (7.4-10.4); Monocytes # 0.3 10^3/uL (0.2-0.9); Monocytes % 8.3 %; Neutrophils # 2.35 10^3/uL (1.8-7.7); Neutrophils % 58.7 %; Nucleated Red Blood Cells % 0 %; Platelet Count 206 10^3/cmm (130-400); Red Cell Distribution Width 15.1 % (12.1-15.1)
[2020-02-19] MEDS: sodium chloride 0.9% 500 ML 75 ML IV (10:30)
[2020-02-19] MEDS: acetaminophen 325 mg Tablet 650 MG PO (10:40)
== END 2020-02-19 06:01 | disposition home or self-care (01) ==
LOC: ONCMED 06:02
PROVIDERS: PCP Internal Medicine; Visit Provider Internal Medicine Medical Oncology
DX: Z51.12 Encounter for antineoplastic immunotherapy (principal); Z51.11 Encounter for antineoplastic chemotherapy; C90.00 Multiple myeloma not having achieved remission; D47.2 Monoclonal gammopathy; D70.1 Agranulocytosis secondary to cancer chemotherapy; T45.1X5A Adverse effect of antineoplastic and immunosuppressive drugs, initial encounter; I10 Essential (primary) hypertension; E78.5 Hyperlipidemia, unspecified; I25.10 Atherosclerotic heart disease of native coronary artery without angina pectoris; E03.9 Hypothyroidism, unspecified; K21.9 Gastro-esophageal reflux disease without esophagitis; M47.9 Spondylosis, unspecified; M79.7 Fibromyalgia; F41.9 Anxiety disorder, unspecified; F32.9 Major depressive disorder, single episode, unspecified; Z95.5 Presence of coronary angioplasty implant and graft
CPT/HCPCS: 85025; 96361; 96367; 96413; 96415; 96417; J1200; J2405; J7040; J9047; J9145

== ENCOUNTER 2020-02-20 05:47 | Outpatient (CLI) | payer MEDICARE, SELFPAY ==
[2020-02-20] MEDS: dexamethasone 4 mg Tablet 20 MG PO (09:42)
[2020-02-20] MEDS: acetaminophen 325 mg Tablet 650 MG PO (09:45)
[2020-02-20] MEDS: palonosetron 0.25 mg/5 mL SDV IV (09:56)
[2020-02-20] MEDS: sodium chloride 0.9% 500 ML 75 ML IV (10:10)
== END 2020-02-20 05:48 | disposition home or self-care (01) ==
LOC: ONCMED 05:53
PROVIDERS: PCP Internal Medicine; Visit Provider Internal Medicine Medical Oncology
DX: Z51.11 Encounter for antineoplastic chemotherapy (principal); C90.00 Multiple myeloma not having achieved remission; D47.2 Monoclonal gammopathy; D70.1 Agranulocytosis secondary to cancer chemotherapy; T45.1X5A Adverse effect of antineoplastic and immunosuppressive drugs, initial encounter
CPT/HCPCS: 96367; 96375; 96413; J1200; J2469; J7040; J8540; J9047

== ENCOUNTER 2020-02-26 06:24 | Outpatient (CLI) | payer MEDICARE, SELFPAY ==
[2020-02-26 10:01] LABS: Eosinophils # 0.1 10^3/uL (0.0-0.8); Eosinophils % 1.8 %; Hematocrit 32.8 % (37.0-47.0); Hemoglobin 10.4 g/dL (11.5-15.3); Lymphocytes # 1.2 10^3/uL (0.8-4.8); Lymphocytes % 35.9 %; Mean Corpuscular HGB Conc 31.7 g/dL (30.0-36.0); Mean Corpuscular Hemoglobin 31.8 pg (28.0-34.0); Mean Corpuscular Volume 100.3 fL (81-99); Mean Platelet Volume 10.7 fL (7.4-10.4); Monocytes # 0.4 10^3/uL (0.2-0.9); Neutrophils # 1.63 10^3/uL (1.8-7.7); Nucleated Red Blood Cells % 0 %; Platelet Count 134 10^3/cmm (130-400); Red Blood Count 3.27 10^6/uL (4.1-5.3); White Blood Count 3.3 10^3/uL (4.0-10.0)
[2020-02-26] MEDS: sodium chloride 0.9% 500 ML IV (10:45)
[2020-02-26] MEDS: acetaminophen 325 mg Tablet 650 MG PO (10:50)
== END 2020-02-26 06:25 | disposition home or self-care (01) ==
PROVIDERS: PCP Internal Medicine; Visit Provider Internal Medicine Medical Oncology
DX: C90.00 Multiple myeloma not having achieved remission (principal); Z51.81 Encounter for therapeutic drug level monitoring; Z79.899 Other long term (current) drug therapy
CPT/HCPCS: 85025; 96361; 96367; 96413; J2405; J7040

== ENCOUNTER 2020-02-27 07:46 | Outpatient (CLI) | payer MEDICARE, SELFPAY ==
[2020-02-27] MEDS: sodium chloride 0.9% 500 ML 999 ML IV (09:48)
[2020-02-27] MEDS: palonosetron 0.25 mg/5 mL SDV IV (10:05)
== END 2020-02-27 07:47 | disposition home or self-care (01) ==
PROVIDERS: PCP Internal Medicine; Visit Provider Internal Medicine Medical Oncology
DX: Z51.11 Encounter for antineoplastic chemotherapy (principal); C90.00 Multiple myeloma not having achieved remission; D47.2 Monoclonal gammopathy; D70.1 Agranulocytosis secondary to cancer chemotherapy; T45.1X5A Adverse effect of antineoplastic and immunosuppressive drugs, initial encounter
CPT/HCPCS: 96361; 96367; 96375; 96413; J1200; J2469; J7040; J9047

== ENCOUNTER 2020-03-04 05:53 | Outpatient (CLI) | payer MEDICARE, SELFPAY ==
[2020-03-04 09:45] LABS: Basophils % 0.3 %; Eosinophils % 0.6 %; Hematocrit 34.3 % (37.0-47.0); Hemoglobin 11.1 g/dL (11.5-15.3); Lymphocytes # 0.4 10^3/uL (0.8-4.8); Lymphocytes % 12.6 %; Mean Corpuscular HGB Conc 32.4 g/dL (30.0-36.0); Mean Corpuscular Hemoglobin 32.3 pg (28.0-34.0); Mean Corpuscular Volume 99.7 fL (81-99); Mean Platelet Volume 10.5 fL (7.4-10.4); Monocytes # 0.1 10^3/uL (0.2-0.9); Monocytes % 2.2 %; Neutrophils # 2.74 10^3/uL (1.8-7.7); Neutrophils % 84.3 %; Nucleated Red Blood Cells % 0 %; Platelet Count 152 10^3/cmm (130-400); Red Blood Count 3.44 10^6/uL (4.1-5.3); Red Cell Distribution Width 14.8 % (12.1-15.1); White Blood Count 3.3 10^3/uL (4.0-10.0)
[2020-03-04 10:09] LABS: Alanine Aminotransferase 12 U/L (0-33); Albumin Level 3.8 g/dL (3.5-5.2); Alkaline Phosphatase 77 IU/L (35-105); Anion Gap 13.2 (5-19); Aspartate Amino Transferase 19 U/L (0-32); Blood Urea Nitrogen 7 mg/dL (8-23); Calcium 8.6 mg/dL (8.5-10.5); Carbon Dioxide 24 mmol/L (22-29); Chloride 103 mmol/L (98-107); Globulin 3.3 g/dL (1.3-4.6); Glomerular Filtration Rate 71.1 mL/min (90-130); Glucose 122 mg/dL (65-115); Osmolality Calculated 281 mOsm/kg (285-295); Potassium 4.2 mmol/L (3.5-5.1); Sodium 136 mmol/L (136-145); Total Bilirubin 0.3 mg/dL (0.15-1.2); Total Protein 7.1 g/dL (6.6-8.7)
[2020-03-04] MEDS: acetaminophen 325 mg Tablet 650 MG PO (11:19)
[2020-03-04] MEDS: sodium chloride 0.9% 500 ML 999 ML IV (11:19)
--- NOTE | 2020-03-08 21:06 | ONC FU_ITS ---
[facility] Patient Note Patient: Karely Armenta Unit #: [id number]: [id number] Dictated By: Say CastilloDate of Visit: Mar 04, 2020 Onc MED Follow-Up/Prog Note Chief Complaint: Myeloma. History of Present Illness: Ms Armenta is a 69 year-old woman with IgG kappa myeloma. She was found to be moderately anemic in December 2016 when she was admitted to the hospital with pneumonia. She also reported having had an illness the preceding summer, in October or November, which may have been tick fever, but that was never confirmed. Her follow-up laboratory studies with Dr. Garcia on 05/03/2017 included CBC showing hemoglobin 11.9 g with white blood cell count 5100 and platelet count 155,000. Her sedimentation rate was significantly elevated at 94 mm/hour. The chem profile showed normal renal function with BUN 13 and creatinine 0.96 mg/dL. Calcium was normal at 9.0 mg/dL. The total protein was elevated at 9.0 g/dL with albumin 4.0 g/dL and calculated serum globulin elevated at 5.0 g/dL. Protein electrophoresis showed a monoclonal protein quantitating at 2.5 g/dL. Immunofixation showed an IgG kappa paraprotein measuring 2.87 g/dL. Hepatitis screen was nonreactive to hepatitis C, hepatitis Bs antigen, and hepatitis B core total Ab referral. The hepatitis B surface antibody was < 3.10. LDH was normal at 149 U/L. The beta-2 microglobulin was slightly elevated at 0.420 mg/dL. Dr Sanchez had seen her initially on 05/11/2017. Repeat protein electrophoresis with immunofixation prior to that visit, from 05/09/2017, showed IgG kappa monoclonal protein quantitating at 2.87 g/dL. The kappa light chain was elevated at 177.96 mg/L with lambda light chain 1.73 mg/L and kappa/lambda ratio elevated at 102. On her further evaluation there was no monoclonal protein detected in a 24-hour urine specimen. Skeletal survey on 05/11/2017 showed cervical and lumbar spondylosis and bilateral hip joint osteoarthritic changes. There was no radiographic evidence of multiple myeloma. She underwent bone marrow aspiration/biopsy on 05/17/2017. The cellularity was estimated at 70% with 32% plasma cells. Iron stores were noted to be absent. The FISH panel for myeloma showed gain of chromosome 1q, deletions of RB 1 and LAMP1, and gain of IG. The standard chromosome analysis was normal. Overall, the findings were consistent with plasma cell neoplasm/myeloma. Staging PET/CT on 06/03/2017 showed a single FDG avid osteolytic site in the T1 vertebral body which was felt to possibly represent multiple myeloma. She then had further evaluation with MRI of the spine on 07/12/2017. There were significant degenerative changes in the cervical spine which included moderate central canal stenosis at C4-C5, C5-C6, and C7 as well as bilateral nerve root encroachment at C5, C6, and C7. There were also degenerative changes in the lumbar spine with interval STIR signal abnormality and enhancement of T10-L5 spinous processes suggesting possible myelomatous changes. The thoracic spine showed subtle diffuse signal and enhancement abnormality involving the T1 vertebral body. In correlation with the PET/CT findings, this was felt to be suspicious for neoplastic process, including multiple myeloma. There were no actual lytic lesions identified. She had further laboratory evaluation on 07/26/2017. Her CBC at that point showed hemoglobin down slightly to 10.1 g with white blood cell count 3700 and platelet count 122,000. Chem profile showed borderline renal function with BUN 12 and creatinine 1.1 mg/dL and calculated GFR 49 mm/hour. Repeat protein electrophoresis showed M protein increased to 3.22 g/dL compared to 2.87 g/dL in April. Her quantitative immunoglobulin levels showed elevated IgG at 3800 mg/dL and IgA low at less than 8.00 and IgM low at 5.50 mg/dL. Her serum iron studies showed normal transferrin saturation at 30.9%, but ferritin was low at 14.4 ng/mL. B12 level was in low-normal range at 288 pg/mL. She is seen for a follow-up visit on 08/14/2017. At that point she did agree to begin treatment with Velcade/Revlimid/dexamethasone. She began her cycle 1 of Velcade/Revlimid/dexamethasone on 09/11/2017. At that time she also began prophylaxis with Bactrim and acyclovir. When she returned for her day 4 Velcade injection, she had developed a significant skin eruption, and she was advised to stop both the Revlimid and the Bactrim. At day 8 she had a reduction in the Velcade dosage to 1.0 mg/m???, as her neutrophil count had dropped to 800 and she also was experiencing some neuropathy. The Revlimid remained on hold. As of 10/17/2017 the ANC was still only 700, and I did opt to delay her 2nd cycle of treatment. Her repeat protein electrophoresis from 10/09/2017 did show a decline in her M protein to 2.71 g/dL compared to a pretreatment level of 3.73 g/dL. She eventually continued with cycle 2 on 10/23/2017 with the Velcade dosage reduced at 1.0 mg/m???. The Revlimid dosage was reduced to 10 mg. Despite the reductions, her cycle 3 was delayed again due to neutropenia. Her repeat protein electrophoresis on 11/20/2017 showed essentially stable M protein level at 2.77 g/dL. She continued with cycle 3 on 12/04/2017. Her neutrophil count at that point was back up to 1900. With that cycle she stopped Revlimid after 1 day and her day for Velcade was held due to multiple symptoms including sore throat, swelling in her throat, hoarseness, and cough. She did receive day 8 Velcade, but her day 11 treatment also was held. She eventually did continue with a 4th cycle of treatment on 12/26/2017 and with the 5th cycle on a 01/16/2018, but with both of those she showed up for only 3 of her scheduled Velcade injections. As of cycle 5 her M protein was still basically stable at 2.82 g/dL. Beginning with cycle 6 her treatment was changed to a 28 day cycle with Velcade administered on days 1, 8, and 15, with Revlimid administered on a 21/28 day schedule, and with dexamethasone administered weekly. With that change her compliance improved. As of 03/05/2018 she began her 7th cycle of treatment. At that point her serum protein electrophoresis had shown a significant decline in the M protein, to 1.41 g/dL. With continued treatment there was further decline in the M protein. As of 05/08/2018 on day 8 of cycle 9 it had decreased to 0.84 g/dL. However, at day 1 of cycle 10 on 05/30/2018 it increased slightly to 1.11 g/dL. At cycle 10 day 22 on 06/19/2018 it had stabilized at 1.09 g/dL. Restaging PET/CT on 06/23/2018 showed the T1 lesion to be weakly FDG positive and unchanged from the previous study in May 2017. Given those findings, it was opted to put her further treatment on hold. Her repeat protein electrophoresis on 07/20/2018 showed an increase in the M protein to 1.4 g/dL. The free light chain assay showed elevated kappa light chain at 83.8 mg/L with lambda light chain 2.9 mg/L and elevated kappa/lambda ratio at 28.90. With those findings, she was advised to continue to second line treatment. She had indicated that she preferred not to be on any type of IV infusion. As such, I recommend a trial of therapy with Revlimid/ixazomib/dexamethasone. She began cycle 1 of Revlimid/ixazomib/dexamethasone on 08/29/2018. Due to her previous toxicities with Revlimid, it was initiated at a reduced dosage of 10 mg daily on a 21/28 day schedule with ixazomib dosed at 4 mg on days 18 and 15 and the dexamethasone dose at 40 mg weekly. She was able to tolerate it with acceptable toxicity, and she continued with cycle 2 on 09/26/2018 and with cycle 3 on 10/25/2018. Her repeat protein electrophoresis in September did show some decline in the M protein, to 1.0 g/dL. It then stabilized, and she continued her same treatment. As of 01/24/2019 the protein electrophoresis showed her quantitative M protein at 1.1 g/dL. The free light chain assay showed kappa light chain elevated at 105.1 mg/L, lambda light chain 7.0 mg/L, and elevated kappa/lambda ratio at 15.01. She continued treatment with Revlimid/ixazomib/dexamethasone. As of 04/22/2019 her protein electrophoresis showed M protein stable at 0.9 g/dL, but her free light chain assay continued to show elevated kappa/lambda ratio at 15.37. Her quantitative immunoglobulin levels showed IgG 1165 mg/dL with IgA low at 10 mg/dL and IgM low at 17 mg/dL. Her CBC showed stable hemoglobin at 12 g, but her ANC was low at 700. As of 05/06/2019 her treatment was put on hold due to persistent neutropenia. Her 24 urine protein electrophoresis showed no monoclonal protein. Her other medical illnesses include hypertension, hyperlipidemia, coronary artery disease, hypothyroidism, GERD, fibromyalgia, degenerative arthritis, and anxiety/depression. Her surgical/procedural history includes coronary angioplasty/stent placement 2015. She has arthroscopic left knee surgery, and she also has had surgery on the right shoulder. She has history of smoking for 25 years, from 1-3 packs of cigarettes daily. She quit smoking in 1989. She has had just occasional alcohol use. She is [employer], and she will not accept blood products. INTERIM HISTORY: In May 2019 she had taken a trip to [place], and while she was there she became very ill and required treatment for pneumonia. She returned here for a follow-up visit in June. Her repeat protein electrophoresis on 07/02/2019 showed increase in the M protein to 2.0 g/dL. Her free light chain assay showed increased kappa light chain to 142 mg/L with lambda light chain 2.9 mg/L, and elevated kappa/lambda ratio at 49.38. Restaging PET/CT on 07/13/2019 showed stable findings in the T1 lesion with FDG activity no greater than that of marrow background, consistent with successfully treated disease. There was no evidence of any new lesions. However, with the significant increase in the M protein and in the kappa free light chain, she was recommended to proceed with third line treatment with daratumumab in combination with carfilzomib and dexamethasone. She underwent placement of Port-A-Cath venous access device in preparation for that treatment. Her baseline echocardiogram showed normal left ventricular function with ejection fraction estimated at 60%. She returned to begin cycle 1 of daratumumab/carfilzomib/dexamethasone on 08/12/2019. The initial infusion of daratumumab was administered in divided doses over 2 days. She tolerated the treatment well. However, her day 8 treatment was complicated by nausea and profuse diaphoresis, which she attributed to the daratumumab. She was able to complete her day 9 carfilzomib treatment. Her day 15/16 treatment was withheld due to a drop in her white blood cell count to 2000 with her ANC at 1000. She did not have fever or other complications. She was given her week 3 daratumumab the following week, but I did opt to split the dosage over 2 days. She tolerated it with no adverse effects. She continued with cycle 2 on 09/11/2019 with the carfilzomib administered at a reduced dosage and with the daratumumab administered in a split dosage. She continued to have anemia, moderately severe neutropenia, and mild thrombocytopenia, but she was able to tolerate the treatment with acceptable toxicity. As of 10/02/2019 the M protein had decreased to 1.1 g/dL. She proceeded with cycle 3 on 10/09/2019. At cycle 3-day 15, on 10/22/2019, her carfilzomib was omitted due to neutropenia, ANC 1400. She did receive her 8th weekly infusion of daratumumab, administered as a single infusion. At that time she also was complaining increased shortness of breath, and a CT pulmonary angiogram showed small filling defects in both the right and left secondary pulmonary arteries consistent with thromboembolic disease. Altered perfusion was seen in those areas. As it did appear to be clinically significant, she was started on anticoagulation with apixaban. She continued with her 4th cycle of treatment on 11/06/2019 with the daratumumab administered at 2-week intervals. At that point her M protein was stable at 1.2 g/dL. The serum free light chain assay, though, did show a decline in her free kappa light chain from 143.7 to 100.6 mg/L. She began cycle 5 on 12/04/2019. Her M protein was down slightly, to 1.1 g/dL. Ms. Alvarado is here today for follow-up. She is due for cycle 7-day 15 and 16 carfilzomib. She is also due for 2-week dosing of daratumumab. She states overall she feels good. She states she has had some fatigue but overall feels better. She states the fatigue is better because she has resumed her vitamins. She states her breathing is stable. She states she has had some intermittent bloating in her abdomen and some abdominal gas. She states her bowels and bladder are working well. She states it is kind of comes and goes. She states her appetite is good. She denies any new shortness of breath orthopnea. She has had no fever or chills. She denies nausea or vomiting. She denies any neuropathy symptoms. She states her fingertips are occasionally tingly but that is not an issue and is not worsening. She denies mouth sores, sore throat or difficulty swallowing. She has had no alopecia. Her ECOG is 1. Past Medical History: Anxiety/depression Chronic back pain Chronic migraine Coronary artery disease Fibromyalgia Gastroesophageal reflux disease Hypertension Hypothyroidism Past Surgical History: Arthroscopic left knee surgery Left breast biopsy for benign disease Removal of cyst from the right breast Right shoulder surgery Coronary angioplasty/stent placement in 2016 Colonoscopy in 2011 Allergies: Codeine Sulfate, LevoFLOXacin, and Vicodin. Medications: amLODIPine Besylate 1 Tablet (of 5 mg) Oral daily Body/Hair/Skin/Nails 2 Capsule Oral daily Agihjzmvex-KHGL-Vhoj-Cod 1 ([id number] mg) Capsule Oral four times a day PRN Cholecalciferol 2 (1000 Units) Capsule Oral daily Curcumin 95 1 (500 mg) Capsule Oral daily PRN Cymbalta 1 (60 mg) Capsule Delayed Release Particles Oral daily Eliquis 1 Tablet (of 5 mg) Oral b.i.d. Furosemide 1 Tablet (of 20 mg) Oral daily PRN Levothyroxine Sodium 1 (50 mcg) Tablet Oral daily Lisinopril 1 (25 mg) Tablet Oral daily LORazepam 0.5 - 1 (1 mg) Tablet Oral q 4 hours PRN Multivitamin Adult 1 Tablet Oral daily Nitroglycerin 1 (400 mcg/spray) Aerosol, solution Translingual PRN OxyCODONE HCl 1 (30 mg) Tablet Oral 5x/d PRN Pantoprazole Sodium 1 Tablet (of 40 mg) Tablet, enteric coated Oral daily Plavix 1 (75 mg) Tablet Oral daily Potassium Chloride ER 1 Tablet (of 10 meq) Tablet, controlled release Oral daily PRN Pravastatin Sodium 1 (40 mg) Tablet Oral daily Prochlorperazine Maleate 1 (10 mg) Tablet Oral four times a day PRN QUEtiapine Fumarate 2 Tablet (of 25 mg) Oral at bedtime Soma 1 (350 mg) Tablet Oral four times a day PRN Family History: Ms. Kathi's mother is alive: heart disease. Ms. Armenta's father is alive. Mother still living at age 87 and she is in relatively good health. She doesn't know about her biologic father. A brother is quadriplegic from a motor vehicle accident. A sister has bipolar disease. A maternal aunt had bladder cancer and another maternal aunt had ovarian cancer. Social History: Ms. Armenta is and she is retired. Ms. Armenta quit smoking 28 years ago but had smoked for 12 years. She drinks occasionally. Ms. Armenta reports the following support systems: lives alone, supportive family/friends willing to assist with needs, and adequate transportation available for expected visits. Her diet consists of regular meals. She indicates her activity level as: occasional exercise. She has a history of smoking for 25 years, in the range of 1-3 packs of cigarettes daily. She quit smoking in 1989. She has had just occasional alcohol use. Review Of Symptoms: Constitutional Denies fevers, chills, night sweats. She has had fatigue-no better but no worse than last visit. Allergic/Immunologic No reactions. Eyes Denies significant visual changes. No diplopia. No amaurosis. ENMT Denies changes in hearing, mouth sores, difficulty or changes in swallowing ability, and/or sinus drainage. Hematologic/Lymphatic Denies easy bleeding. The patient denies any tender or palpable lymph nodes-intermittent bruising but stable. Respiratory shortness of breath better overall. Cardiovascular Denies anginal chest pain, palpitations or orthopnea. Gastrointestinal Denies nausea, vomiting, diarrhea, GI bleeding, or constipation. Denies change in bowel habits and/or stool color, no heartburn or early satiety. Some intermittent bloating/abdominal gas. Genitourinary (F) No hematuria, hesitancy, incontinence, vaginal bleeding, discharge or other problems with urination. Musculoskeletal Denies joint swelling or redness. No decreased range of motion. States she is having joint pain off and on, but chronic and stable. Chronic lower back pain. Integumentary Denies chronic rashes, inflammation, ulcerations or skin changes. Neurologic Denies headache, blurred vision, and no areas of focal weakness or numbness. Normal gait. No sensory problems. Psychiatric Denies insomnia, depression, danelle or mood swings. Vital Signs: Performed on Mar 04, 2020 09:20 Height - 66.00 in Weight - 167 lbs (HIGH) BSA - 1.85 sq.m BMI - 26.95 Temperature - 97.9 F (LOW) Pulse - 77 /min Respiration - 18 /min BP - 143/78 mm(hg) (HIGH) O2 Sat - 97 %,1 - No physically strenuous activity, but ambulatory and able to carry out light or sedentary work (e.g. office work, light house work). (ECOG) Physical Examination: Constitutional Alert, oriented, no acute distress. Skin pink, warm and dry. Head Normocephalic; atraumatic. Eyes Conjunctivae and sclerae are clear and without icterus. Pupils are reactive and equal. Neck Supple without masses or thyromegaly. No jugular venous distension. Hematologic/Lymphatic No petechiae or purpura. Respiratory Lungs are clear to auscultation without rhonchi or wheezing. Cardiovascular Regular rate and rhythm of heart without murmurs,clicks, gallops or rubs. Chest left chest wall venous access device insertion site unremarkable. Abdomen Non-tender, non-distended, no masses, ascites. Back/Spine Non-tender to palpation. Extremities No visible deformities, no cyanosis, clubbing or edema. Musculoskeletal No tenderness or swelling, normal range of motion without obvious weakness. Integumentary No rashes or lesions. Neurologic No sensory or motor deficits, normal cerebellar function, normal gait. Psychiatric Alert and oriented times three. Coherent speech. Verbalizes understanding of our discussions today. Laboratory:Test performed on Mar 04, 2020 09:35 Sodium 136 mmol/L Potassium 4.2 mmol/L Chloride 103 mmol/L CO2 24 mmol/L Anion Gap 13.2 BUN 7 mg/dL Creatinine 0.8 mg/dL Cr Clearance (Est) 79.7500 mL/min eGFR 71.1 mL/min Glucose 122 mg/dL Osmolality - Calculated 281 mOsm/kg Calcium 8.6 mg/dL Protein, Total 7.1 g/dL Albumin 3.8 g/dL Globulin 3.3 g/dL Bilirubin, Total 0.3 mg/dL ALT (SGPT) 12 U/L AST (SGOT) 19 U/L Alkaline Phosphatase 77 IU/L WBC 3.3 10 3/uL RBC 3.44 10 6/uL HGB 11.1 g/dL HCT 34.3 % MCV 99.7 fL MCH 32.3 pg MCHC 32.4 g/dL RDW 14.8 % Platelet Count 152 10 3/cmm MPV 10.5 fL Neutrophils 2.74 10 3/uL Lymphocytes 0.4 10 3/uL Monocytes 0.1 10 3/uL Eosinophils 0.0 10 3/uL Basophils 0.0 10 3/uL Neutrophil % 84.3 % Lymphocyte % 12.6 % Monocyte % 2.2 % Eosinophil % 0.6 % Basophils % 0.3 % NRBC % 0 % Test performed on Feb 12, 2020 08:45 IgG 1391 mg/dL Sylvarena Free Light Chains 111.4 mg/L Lambda Free Light Chains < 1.5 mg/L IgA 50 mg/dL Sylvarena/Lambda Free Ratio > 74.27 IgM < 25 mg/dL Test performed on Dec 04, 2019 09:14 TSH 2.06 uIU/mL Test performed on October 02, 2019 08:45 ESR (Sed Rate) 43 mm/hr Impression: 1. Patient with IgG kappa myeloma. Bone marrow aspiration/biopsy on 05/17/2017 showed 32% plasma cells, consistent with myeloma. The FISH panel showed gain of chromosome 1q, deletions of RB 1 and LAMP1, and gain of IG. Her baseline M protein was 2.87 g/dL. She was mildly anemic and she had significantly elevated sedimentation rate. She had normal renal function and negative 24-hour urine protein electrophoresis. Skeletal survey showed no lytic bone involvement. PET/CT and MRI both showed findings suspicious for involvement of the T1 vertebral body. She does not appear to be overtly symptomatic with it. 2. Her bone marrow also showed absent storage iron. Her other medical illnesses include: 3. Hypertension. 4. Hyperlipidemia. 5. Coronary artery disease with angioplasty/stent placement in February 2016. 6. Hypothyroidism. 7. GERD. 8. Degenerative arthritis/degenerative disease of the spine. 9. Fibromyalgia. 10. Anxiety/depression. She has been undergoing treatment with Velcade/Revlimid/dexamethasone, cycle 1 beginning on 09/11/2017. Overall, her treatment was very suboptimal due in part to multiple side effects which included skin eruption and neutropenia, among others. Compliance also had been somewhat of an issue. Beginning with her 6th cycle of treatment, on 02/05/2018, her treatment was changed to a 28 day schedule with Velcade administered at a reduced dosage on days 1, 8, and 15, with Revlimid administered at 10 mg daily on a 21/28 day schedule, and with dexamethasone administered weekly. She began cycle 7 on 03/05/2018. Her serum protein electrophoresis at that point did show a significant decrease in the M protein, to 1.41 g/dL. She then continued treatment at the same dosages, but intermittently she still had moderately severe neutropenia. She had otherwise been tolerating the treatment well. She began her 10th cycle of treatment on 05/30/2018. At that point her M protein had stabilized at just over 1 g/dL. She appeared stable clinically, and restaging PET/CT showed only mild FDG activity in the T1 lesion. There were no other areas of FDG uptake, and there was no significant change compared to the prior study in May 2017. As on 07/20/2018 her repeat protein electrophoresis showed a significant increase in the M protein to 1.4 g/dL, and her free light chain assay showed an increase in the kappa/lambda ratio to28.90. With those findings, she was advised to proceed with second line treatment. She indicated that she preferred not to have any IV medication. As such, on 08/29/2018 she began a trial of therapy with Revlimid/ixazomib/dexamethasone. Due to her previous toxicities, the Revlimid was initiated at a reduced dosage of 10 mg daily on a 21/28 day schedule. As of October 2018, following 3 cycles of treatment, her M protein had stabilized at 1.0 g/dL. She continued her same treatment, and as of 01/24/2019 her M protein and her free light chain had remained stable. Her clinical status at that time also appeared stable, and she continued treatment with Revlimid, ixazomib, and dexamethasone at the same dosages. As of 04/22/2019 her protein electrophoresis showed M protein stable at 0.9 g/dL, but her free light chain assay continued to show elevated kappa/lambda ratio at 15.37. Her quantitative immunoglobulin levels showed IgG 1165 mg/dL with IgA low at 10 mg/dL and IgM low at 17 mg/dL. Her CBC showed stable hemoglobin at 12 g, but her ANC was low at 700. As of 05/06/2019 her treatment was put on hold due to persistent neutropenia. Her 24 hour urine protein electrophoresis showed no monoclonal protein. As of her follow-up visit in June 2019 there was evidence of disease progression with significant increase in her M protein and and her kappa free light chain. Her restaging PET/CT showed stable findings at the T1 vertebral body lesion and no evidence of any new lesions. With those findings, she began third line treatment with daratumumab/carfilzomib/dexamethasone on 08/12/2019. She has now completed 1 cycle of treatment. She tolerated her day 1/day 2 treatments very well. She developed mulitple side effects following her day 8 treatment, which she attibuted to the daratumumab. She was able to complete her day 9 carfilzomib treatment. Her day 15/16 treatment was withheld due to neutropenia, ANC 1000. She completed her week 3 daratumumab the following week, but with the dosage split over 2 days. She tolerated it without adverse effects. On 09/11/2019 continued with cycle 2 of daratumumab/carfilzomib/dexamethasone with the carfilzomib administered at a reduced dosage and with the daratumumab administered in a split dosage. She continued to have anemia, moderately severe neutropenia, and mild thrombocytopenia, but she was able to tolerate the treatment with acceptable toxicity. She has had some evidence of response, though not dramatic, with her repeat protein electrophoresis on 10/02/2019 showing decline in the M protein, to 1.1 g/dL. She proceeded with cycle 3 on 10/09/2019. Her blood counts at that point had remained adequate, and her clinical status appeared stable. At cycle 3-day 15 her carfilzomib was omitted due to neutropenia, ANC 1400. She did receive her 8th weekly daratumumab infusion, administered as a single dose. At that time she complained of increased shortness of breath, and she was found on pulmonary angiogram to have bilateral pulmonary emboli. She began on anticoagulation with apixaban. She continued to have moderately severe neutropenia, but she otherwise appeared stable clinically. She continued with her 4th cycle of treatment on 11/06/2019 with the daratumumab administered at 2-week intervals. At that point her M protein was stable at 1.2 g/dL. It was uncertain to what extent that may have reflected residual disease or monoclonal protein associated with the daratumumab. The serum free light chain assay had shown a decline in her free kappa light chain from 143.7 to 100.6 mg/L. She continued with cycle 5 on 12/04/2019. Thus far she has continued to tolerate her treatment with acceptable toxicity, and she has had gradual decline in the M protein and in the serum free kappa light chain. Her overall clinical status appears stable. Plan: 1. Proceed with cycle 7-day 15 and 16 carfilzomib. She is not due for daratumumab (she is now monthly dosing after treatment on 02/19/2020). 2. Continue current antiemetics as they are working well. 3. She continues her dexamethasone-she currently takes it on the days of carfilzomib. 4. She also continues anticoagulation with apixaban 5 mg twice daily. 4. Mrs. Armenta was informed of her blood counts from today. We reviewed them in detail and a copy was given to her. WBC 3.3, hemoglobin 11.1, platelets 152,000 ANC is 2440. Creatinine 0.8 LFTs are normal. Her abnormal protein from 12/31/2000 is reported at 0.9 and is 0.1. On February 04, 2020 is reported at 1.1 and is 0.1. There was restricted band (M spike) migrating in the gamma region on both reports. Her kappa free light chain on 01/01/2020 was reported at 79.5. On September 11, 2019 was 143.7. 5. We will plan to see Mrs. Armenta back in 2 weeks with CBC CMP SPEP with MARIAM MEANS, serum free light chain analysis. She will be due for monthly Darzalex at that time. 6. Mrs. Armenta is instructed to contact us in interim should questions or problems arise. Signed By: Say Castillo-, [facility] Sean Sanchez MD <<Signature on File>>
== END 2020-03-04 05:54 | disposition home or self-care (01) ==
LOC: ONCMED 05:55
PROVIDERS: PCP Internal Medicine; Visit Provider Nurse Practitioner
DX: Z51.11 Encounter for antineoplastic chemotherapy (principal); C90.00 Multiple myeloma not having achieved remission; I10 Essential (primary) hypertension; E78.5 Hyperlipidemia, unspecified; I25.10 Atherosclerotic heart disease of native coronary artery without angina pectoris; Z95.5 Presence of coronary angioplasty implant and graft; Z95.1 Presence of aortocoronary bypass graft; E03.9 Hypothyroidism, unspecified; K21.9 Gastro-esophageal reflux disease without esophagitis; M47.9 Spondylosis, unspecified; M79.7 Fibromyalgia; F41.8 Other specified anxiety disorders; Z79.899 Other long term (current) drug therapy; Z79.01 Long term (current) use of anticoagulants; Z86.711 Personal history of pulmonary embolism; Z79.52 Long term (current) use of systemic steroids
CPT/HCPCS: 80053; 85025; 96361; 96367; 96413; 99214; J1200; J2405; J7040; J9047

== ENCOUNTER 2020-03-05 06:12 | Outpatient (CLI) | payer MEDICARE, SELFPAY ==
[2020-03-05] MEDS: sodium chloride 0.9% 500 ML 999 ML IV (10:17)
[2020-03-05] MEDS: palonosetron 0.25 mg/5 mL SDV IV (10:25)
== END 2020-03-05 06:13 | disposition home or self-care (01) ==
LOC: ONCMED 06:14
PROVIDERS: PCP Internal Medicine; Visit Provider Nurse Practitioner
DX: C90.00 Multiple myeloma not having achieved remission (principal); Z51.81 Encounter for therapeutic drug level monitoring; Z79.899 Other long term (current) drug therapy
CPT/HCPCS: 96361; 96367; 96375; 96413; J1200; J2469; J7040; J9047

== ENCOUNTER 2020-03-18 05:59 | Outpatient (CLI) | payer MEDICARE, SELFPAY ==
[2020-03-18 09:23] LABS: Basophils % 0.4 %; Eosinophils % 0.7 %; Hemoglobin 11.1 g/dL (11.5-15.3); Lymphocytes # 0.7 10^3/uL (0.8-4.8); Lymphocytes % 23.7 %; Mean Corpuscular HGB Conc 31.7 g/dL (30.0-36.0); Mean Corpuscular Hemoglobin 31.6 pg (28.0-34.0); Mean Corpuscular Volume 99.7 fL (81-99); Mean Platelet Volume 9.5 fL (7.4-10.4); Monocytes # 0.1 10^3/uL (0.2-0.9); Monocytes % 3.6 %; Neutrophils # 1.99 10^3/uL (1.8-7.7); Neutrophils % 71.2 %; Nucleated Red Blood Cells % 0 %; Platelet Count 226 10^3/cmm (130-400); Red Blood Count 3.51 10^6/uL (4.1-5.3); Red Cell Distribution Width 14.7 % (12.1-15.1); White Blood Count 2.8 10^3/uL (4.0-10.0)
[2020-03-18 09:54] LABS: Alanine Aminotransferase 12 U/L (0-33); Alkaline Phosphatase 78 IU/L (35-105); Anion Gap 13.1 (5-19); Aspartate Amino Transferase 16 U/L (0-32); Blood Urea Nitrogen 12 mg/dL (8-23); Calcium 8.6 mg/dL (8.5-10.5); Carbon Dioxide 26 mmol/L (22-29); Chloride 103 mmol/L (98-107); Glomerular Filtration Rate 71.1 mL/min (90-130); Glucose 105 mg/dL (65-115); Immunoglobulin IGA 50 mg/dL (70-400); Immunoglobulin IGG 1588 mg/dL (700-1600); Immunoglobulin IGM 25 mg/dL (40-230); Osmolality Calculated 286 mOsm/kg (285-295); Potassium 4.1 mmol/L (3.5-5.1); Sodium 138 mmol/L (136-145); Total Bilirubin 0.2 mg/dL (0.15-1.2)
[2020-03-18] MEDS: acetaminophen 325 mg Tablet 650 MG PO (11:00)
[2020-03-18] MEDS: sodium chloride 0.9% 500 ML 999 ML IV (11:21)
[2020-03-19 15:14] LABS: KAPPA LIGHT CHAIN, FREE, SERUM 117.6 mg/L (3.3-19.4); LAMBDA LIGHT CHAIN, FREE, SERU 1.6 mg/L (5.7-26.3)
[2020-03-21 02:03] LABS: PROTEIN, TOTAL 7.1 g/dL (6.1-8.1)
--- NOTE | 2020-03-21 14:54 | ONC FU_ITS ---
Dr. Sanchez Patient Follow-Up Note Patient: Karely Armenta Unit #: [id number]: 1950 Dicatated By: Sean Sanchez M.D.Date of Visit:Mar 18, 2020 Onc Med Follow-up/Prog Note Chief Complaint: Myeloma. History of Present Illness: This is a 69 year-old woman with IgG kappa myeloma. She was found to be moderately anemic in December 2016 when she was admitted to the hospital with pneumonia. She also reported having had an illness the preceding summer, in October or November, which may have been tick fever, but that was never confirmed. Her follow-up laboratory studies with Dr. Garcia on 05/03/2017 included CBC showing hemoglobin 11.9 g with white blood cell count 5100 and platelet count 155,000. Her sedimentation rate was significantly elevated at 94 mm/hour. The chem profile showed normal renal function with BUN 13 and creatinine 0.96 mg/dL. Calcium was normal at 9.0 mg/dL. The total protein was elevated at 9.0 g/dL with albumin 4.0 g/dL and calculated serum globulin elevated at 5.0 g/dL. Protein electrophoresis showed a monoclonal protein quantitating at 2.5 g/dL. Immunofixation showed an IgG kappa paraprotein measuring 2.87 g/dL. Hepatits screen was nonreactive to hepatitis C, hepatitis Bs antigen, and hepatitis B core total Ab referral. The hepatitis B surface antibody was < 3.10. LDH was normal at 149 U/L. The beta-2 microglobulin was slightly elevated at 0.420 mg/dL. I had seen her initially on 05/11/2017. Repeat protein electrophoresis with immunofixation prior to that visit, from 05/09/2017, showed IgG kappa monoclonal protein quantitating at 2.87 g/dL. The kappa light chain was elevated at 177.96 mg/L with lambda light chain 1.73 mg/L and kappa/lambda ratio elevated at 102. On her further evaluation there was no monoclonal protein detected in a 24-hour urine specimen. Skeletal survey on 05/11/2017 showed cervical and lumbar spondylosis and bilateral hip joint osteoarthritic changes. There was no radiographic evidence of multiple myeloma. She underwent bone marrow aspiration/biopsy on 05/17/2017. The cellularity was estimated at 70% with 32% plasma cells. Iron stores were noted to be absent. The FISH panel for myeloma showed gain of chromosome 1q, deletions of RB 1 and LAMP1, and gain of IG. The standard chromosome analysis was normal. Overall, the findings were consistent with plasma cell neoplasm/myeloma. Staging PET/CT on 06/03/2017 showed a single FDG avid osteolytic site in the T1 vertebral body which was felt to possibly represent multiple myeloma. She then had further evaluation with MRI of the spine on 07/12/2017. There were significant degenerative changes in the cervical spine which included moderate central canal stenosis at C4-C5, C5-C6, and C7 as well as bilateral nerve root encroachment at C5, C6, and C7. There were also degenerative changes in the lumbar spine with interval STIR signal abnormality and enhancement of T10-L5 spinous processes suggesting possible myelomatous changes. The thoracic spine showed subtle diffuse signal and enhancement abnormality involving the T1 vertebral body. In correlation with the PET/CT findings, this was felt to be suspicious for neoplastic process, including multiple myeloma. There were no actual lytic lesions identified. She had further laboratory evaluation on 07/26/2017. Her CBC at that point showed hemoglobin down slightly to 10.1 g with white blood cell count 3700 and platelet count 122,000. Chem profile showed borderline renal function with BUN 12 and creatinine 1.1 mg/dL and calculated GFR 49 mm/hour. Repeat protein electrophoresis showed M protein increased to 3.22 g/dL compared to 2.87 g/dL in April. Her quantitative immunoglobulin levels showed elevated IgG at 3800 mg/dL and IgA low at less than 8.00 and IgM low at 5.50 mg/dL. Her serum iron studies showed normal transferrin saturation at 30.9%, but ferritin was low at 14.4 ng/mL. B12 level was in low-normal range at 288 pg/mL. She is seen for a follow-up visit on 08/14/2017. At that point she did agree to begin treatment with Velcade/Revlimid/dexamethasone. She began her cycle 1 of Velcade/Revlimid/dexamethasone on 09/11/2017. At that time she also began prophylaxis with Bactrim and acyclovir. When she returned for her day 4 Velcade injection, she had developed a significant skin eruption, and she was advised to stop both the Revlimid and the Bactrim. At day 8 she had a reduction in the Velcade dosage to 1.0 mg/m???, as her neutrophil count had dropped to 800 and she also was experiencing some neuropathy. The Revlimid remained on hold. As of 10/17/2017 the ANC was still only 700, and I did opt to delay her 2nd cycle of treatment. Her repeat protein electrophoresis from 10/09/2017 did show a decline in her M protein to 2.71 g/dL compared to a pretreatment level of 3.73 g/dL. She eventually continued with cycle 2 on 10/23/2017 with the Velcade dosage reduced at 1.0 mg/m???. The Revlimid dosage was reduced to 10 mg. Despite the reductions, her cycle 3 was delayed again due to neutropenia. Her repeat protein electrophoresis on 11/20/2017 showed essentially stable M protein level at 2.77 g/dL. She continued with cycle 3 on 12/04/2017. Her neutrophil count at that point was back up to 1900. With that cycle she stopped Revlimid after 1 day and her day for Velcade was held due to multiple symptoms including sore throat, swelling in her throat, hoarseness, and cough. She did receive day 8 Velcade, but her day 11 treatment also was held. She eventually did continue with a 4th cycle of treatment on 12/26/2017 and with the 5th cycle on a 01/16/2018, but with both of those she showed up for only 3 of her scheduled Velcade injections. As of cycle 5 her M protein was still basically stable at 2.82 g/dL. Beginning with cycle 6 her treatment was changed to a 28 day cycle with Velcade administered on days 1, 8, and 15, with Revlimid administered on a day schedule, and with dexamethasone administered weekly. With that change her compliance improved. As of 03/05/2018 she began her 7th cycle of treatment. At that point her serum protein electrophoresis had shown a significant decline in the M protein, to 1.41 g/dL. With continued treatment there was further decline in the M protein. As of 05/08/2018 on day 8 of cycle 9 it had decreased to 0.84 g/dL. However, at day 1 of cycle 10 on 05/30/2018 it increased slightly to 1.11 g/dL. At cycle 10 day 22 on 06/19/2018 it had stabilized at 1.09 g/dL. Restaging PET/CT on 06/23/2018 showed the T1 lesion to be weakly FDG positive and unchanged from the previous study in May 2017. Given those findings, I did opt to put her further treatment on hold. Her repeat protein electrophoresis on 07/20/2018 showed an increase in the M protein to 1.4 g/dL. The free light chain assay showed elevated kappa light chain at 83.8 mg/L with lambda light chain 2.9 mg/L and elevated kappa/lambda ratio at 28.90. With those findings, she was advised to continue to second line treatment. She had indicated that she preferred not to be on any type of IV infusion. As such, I recommend a trial of therapy with Revlimid/ixazomib/dexamethasone. She began cycle 1 of Revlimid/ixazomib/dexamethasone on 08/29/2018. Due to her previous toxicities with Revlimid, it was initiated at a reduced dosage of 10 mg daily on a 21/28 day schedule with ixazomib dosed at 4 mg on days 18 and 15 and the dexamethasone dose at 40 mg weekly. She was able to tolerate it with acceptable toxicity, and she continued with cycle 2 on 09/26/2018 and with cycle 3 on 10/25/2018. Her repeat protein electrophoresis in September did show some decline in the M protein, to 1.0 g/dL. It then stabilized, and she continued her same treatment. As of 01/24/2019 the protein electrophoresis showed her quantitative M protein at 1.1 g/dL. The free light chain assay showed kappa light chain elevated at 105.1 mg/L, lambda light chain 7.0 mg/L, and elevated kappa/lambda ratio at 15.01. She continued treatment with Revlimid/ixazomib/dexamethasone. As of 04/22/2019 her protein electrophoresis showed M protein stable at 0.9 g/dL, but her free light chain assay continued to show elevated kappa/lambda ratio at 15.37. Her quantitative immunoglobulin levels showed IgG 1165 mg/dL with IgA low at 10 mg/dL and IgM low at 17 mg/dL. Her CBC showed stable hemoglobin at 12 g, but her ANC was low at 700. As of 05/06/2019 her treatment was put on hold due to persistent neutropenia. Her 24 urine protein electrophoresis showed no monoclonal protein. Her other medical illnesses include hypertension, hyperlipidemia, coronary artery disease, hypothyroidism, GERD, fibromyalgia, degenerative arthritis, and anxiety/depression. Her surgical/procedural history includes coronary angioplasty/stent placement 2015. She has arthroscopic left knee surgery, and she also has had surgery on the right shoulder. She has history of smoking for 25 years, from 1-3 packs of cigarettes daily. She quit smoking in 1989. She has had just occasional alcohol use. She is [employer], and she will not accept blood products. INTERIM HISTORY: In May 2019 she had taken a trip to [place], and while she was there she became very ill and required treatment for pneumonia. She returned here for a follow-up visit in June. Her repeat protein electrophoresis on 07/02/2019 showed increase in the M protein to 2.0 g/dL. Her free light chain assay showed increased kappa light chain to 142 mg/L with lambda light chain 2.9 mg/L, and elevated kappa/lambda ratio at 49.38. Restaging PET/CT on 07/13/2019 showed stable findings in the T1 lesion with FDG activity no greater than that of marrow background, consistent with successfully treated disease. There was no evidence of any new lesions. However, with the significant increase in the M protein and in the kappa free light chain, she was recommended to proceed with third line treatment with daratumumab in combination with carfilzomib and dexamethasone. She underwent placement of Port-A-Cath venous access device in preparation for that treatment. Her baseline echocardiogram showed normal left ventricular function with ejection fraction estimated at 60%. She returned to begin cycle 1 of daratumumab/carfilzomib/dexamethasone on 08/12/2019. The initial infusion of daratumumab was administered in divided doses over 2 days. She tolerated the treatment well. However, her day 8 treatment was complicated by nausea and profuse diaphoresis, which she attributed to the daratumumab. She was able to complete her day 9 carfilzomib treatment. Her day 15/16 treatment was withheld due to a drop in her white blood cell count to 2000 with her ANC at 1000. She did not have fever or other complications. She was given her week 3 daratumumab the following week, but I did opt to split the dosage over 2 days. She tolerated it with no adverse effects. She continued with cycle 2 on 09/11/2019 with the carfilzomib administered at a reduced dosage and with the daratumumab administered in a split dosage. She continued to have anemia, moderately severe neutropenia, and mild thrombocytopenia, but she was able to tolerate the treatment with acceptable toxicity. As of 10/02/2019 the M protein had decreased to 1.1 g/dL. She proceeded with cycle 3 on 10/09/2019. At cycle 3-day 15, on 10/22/2019, her carfilzomib was omitted due to neutropenia, ANC 1400. She did receive her 8th weekly infusion of daratumumab, administered as a single infusion. At that time she also was complaining increased shortness of breath, and a CT pulmonary angiogram showed small filling defects in both the right and left secondary pulmonary arteries consistent with thromboembolic disease. Altered perfusion was seen in those areas. As it did appear to be clinically significant, she was started on anticoagulation with apixaban. She continued with her 4th cycle of treatment on 11/06/2019 with the daratumumab administered at 2-week intervals. At that point her M protein was stable at 1.2 g/dL. The serum free light chain assay, though, did show a decline in her free kappa light chain from 143.7 to 100.6 mg/L. She began cycle 5 on 12/04/2019. Her M protein was down slightly, to 1.1 g/dL. As of 01/01/2020 it had further declined to 0.9 g/dL. She then began her 6th cycle of treatment, and she continued with cycle 7 on 02/19/2020. She is seen for a followup visit. She has been feeling pretty good generally. She does have some fatigue, which she attributes to just not liking colder weather. ECOG score is 1. She has good appetite. She has not had fever. She occasionally has sweating. She has no shortness of breath, cough, or chest pain. She has no GI or complaints. She has pain in her low back and hips, which is unchanged. She has had some minor headaches. She occasionally has dizziness. She has no focal neurologic symptoms. Medications: amLODIPine Besylate 1 Tablet (of 5 mg) Oral daily, Body/Hair/Skin/Nails 2 Capsule Oral daily, Xvpdwogwfh-KVOR-Hoqo-Cod 1 (70-971-70-30 mg) Capsule Oral four times a day PRN, Cholecalciferol 2 (1000 Units) Capsule Oral daily, Curcumin 95 1 (500 mg) Capsule Oral daily PRN, Cymbalta 1 (60 mg) Capsule Delayed Release Particles Oral daily, Eliquis 1 Tablet (of 5 mg) Oral b.i.d., Furosemide 1 Tablet (of 20 mg) Oral daily PRN, Levothyroxine Sodium 1 (50 mcg) Tablet Oral daily, Lisinopril 1 (25 mg) Tablet Oral daily, LORazepam 0.5 - 1 (1 mg) Tablet Oral q 4 hours PRN, Multivitamin Adult 1 Tablet Oral daily, Nitroglycerin 1 (400 mcg/spray) Aerosol, solution Translingual PRN, OxyCODONE HCl 1 (30 mg) Tablet Oral 5x/d PRN, Pantoprazole Sodium 1 Tablet (of 40 mg) Tablet, enteric coated Oral daily, Plavix 1 (75 mg) Tablet Oral daily, Potassium Chloride ER 1 Tablet (of 10 meq) Tablet, controlled release Oral daily PRN, Pravastatin Sodium 1 (40 mg) Tablet Oral daily, Prochlorperazine Maleate 1 (10 mg) Tablet Oral four times a day PRN, QUEtiapine Fumarate 2 Tablet (of 25 mg) Oral at bedtime, Soma 1 (350 mg) Tablet Oral four times a day PRN Allergies: Codeine Sulfate, LevoFLOXacin, and Vicodin. Review of Systems: Constitutional - She has been feeling good generally. Her energy is pretty good. She is able to do light work in and around the house. Her appetite is good and weight is stable. No fevers. She has occasional hot flashes. ECOG score is 1, ENMT - She has sinus drainage. No mouth sores. No sore throat or difficulty swallowing, Hematologic/Lymphatic - She bruises easily, Respiratory - No shortness of breath. No cough. No pleuritic pain or hemoptysis, Cardiovascular - No angina pain. No palpitations, Gastrointestinal - No nausea or vomiting. No heartburn or acid reflux. No diarrhea or constipation. No blood in the stool or black stools, Genitourinary (F) - No dysuria or hematuria. No urinary frequency. No urgency or incontinence, Musculoskeletal - She has pain in her low back and hips, unchanged, Integumentary - No skin complications, Neurologic - She's had a few headaches recently. No dizziness. No numbness or tingling. No other focal neurologic symptoms, Psychiatric - No anxiety or depression. She has some difficulty sleeping. Vital Signs: Performed on Mar 18, 2020 10:06 Height - 66.00 in Weight - 166.4 lbs (LOW) BSA - 1.85 sq.m BMI - 26.86 Temperature - 97.5 F (LOW) Pulse - 74 /min Respiration - 19 /min BP - 148/73 mm(hg) (HIGH) O2 Sat - 98 % Pain - 5 Physical Examination: Constitutional - She looks pretty good generally, Eyes - Sclerae nonicteric. Conjunctivae clear, ENMT - No lesions noted in the oral cavity, Hematologic/Lymphatic - No cervical, clavicular, or axillary adenopathy, Respiratory - Lungs are clear with good air movement bilaterally, Cardiovascular - Heart rhythm is regular. There is no murmur, gallop, or rub noted, Abdomen - Soft. Liver and spleen are not enlarged. There is no abdominal mass or ascites noted and there is no inguinal adenopathy, Extremities - No edema, Neurologic - No focal neurologic deficits noted. Lab/Imaging: Test performed on Mar 18, 2020 09:03 Sodium 138 mmol/L Potassium 4.1 mmol/L Chloride 103 mmol/L CO2 26 mmol/L Anion Gap 13.1 BUN 12 mg/dL Creatinine 0.8 mg/dL Cr Clearance (Est) 79.7500 mL/min eGFR 71.1 mL/min Glucose 105 mg/dL Osmolality - Calculated 286 mOsm/kg Calcium 8.6 mg/dL Protein, Total 7.0 g/dL Albumin 4.0 g/dL Globulin 3.0 g/dL Bilirubin, Total 0.2 mg/dL ALT (SGPT) 12 U/L AST (SGOT) 16 U/L Alkaline Phosphatase 78 IU/L WBC 2.8 10 3/uL RBC 3.51 10 6/uL HGB 11.1 g/dL HCT 35.0 % MCV 99.7 fL MCH 31.6 pg MCHC 31.7 g/dL RDW 14.7 % Platelet Count 226 10 3/cmm MPV 9.5 fL Neutrophils 1.99 10 3/uL Lymphocytes 0.7 10 3/uL Monocytes 0.1 10 3/uL Eosinophils 0.0 10 3/uL Basophils 0.0 10 3/uL Neutrophil % 71.2 % Lymphocyte % 23.7 % Monocyte % 3.6 % Eosinophil % 0.7 % Basophils % 0.4 % NRBC % 0 % IgG 1588 mg/dL Raven Free Light Chains 117.6 mg/L Lambda Free Light Chains 1.6 mg/L IgA 50 mg/dL Raven/Lambda Free Ratio 73.50 IgM 25 mg/dL Impression: 1. Patient with IgG kappa myeloma. Bone marrow aspiration/biopsy on 05/17/2017 showed 32% plasma cells, consistent with myeloma. The FISH panel showed gain of chromosome 1q, deletions of RB 1 and LAMP1, and gain of IG. Her baseline M protein was 2.87 g/dL. She was mildly anemic and she had significantly elevated sedimentation rate. She had normal renal function and negative 24-hour urine protein electrophoresis. Skeletal survey showed no lytic bone involvement. PET/CT and MRI both showed findings suspicious for involvement of the T1 vertebral body. She does not appear to be overtly symptomatic with it. 2. Her bone marrow also showed absent storage iron. Her other medical illnesses include: 3. Hypertension. 4. Hyperlipidemia. 5. Coronary artery disease with angioplasty/stent placement in February 2016. 6. Hypothyroidism. 7. GERD. 8. Degenerative arthritis/degenerative disease of the spine. 9. Fibromyalgia. 10. Anxiety/depression. She has been undergoing treatment with Velcade/Revlimid/dexamethasone, cycle 1 beginning on 09/11/2017. Overall, her treatment was very suboptimal due in part to multiple side effects which included skin eruption and neutropenia, among others. Compliance also had been somewhat of an issue. Beginning with her 6th cycle of treatment, on 02/05/2018, her treatment was changed to a 28 day schedule with Velcade administered at a reduced dosage on days 1, 8, and 15, with Revlimid administered at 10 mg daily on a 21/28 day schedule, and with dexamethasone administered weekly. She began cycle 7 on 03/05/2018. Her serum protein electrophoresis at that point did show a significant decrease in the M protein, to 1.41 g/dL. She then continued treatment at the same dosages, but intermittently she still had moderately severe neutropenia. She had otherwise been tolerating the treatment well. She began her 10th cycle of treatment on 05/30/2018. At that point her M protein had stabilized at just over 1 g/dL. She appeared stable clinically, and restaging PET/CT showed only mild FDG activity in the T1 lesion. There were no other areas of FDG uptake, and there was no significant change compared to the prior study in May 2017. As on 07/20/2018 her repeat protein electrophoresis showed a significant increase in the M protein to 1.4 g/dL, and her free light chain assay showed an increase in the kappa/lambda ratio to28.90. With those findings, she was advised to proceed with second line treatment. She indicated that she preferred not to have any IV medication. As such, on 08/29/2018 she began a trial of therapy with Revlimid/ixazomib/dexamethasone. Due to her previous toxicities, the Revlimid was initiated at a reduced dosage of 10 mg daily on a 21/ day schedule. As of October 2018, following 3 cycles of treatment, her M protein had stabilized at 1.0 g/dL. She continued her same treatment, and as of 01/24/2019 her M protein and her free light chain had remained stable. Her clinical status at that time also appeared stable, and she continued treatment with Revlimid, ixazomib, and dexamethasone at the same dosages. As of 04/22/2019 her protein electrophoresis showed M protein stable at 0.9 g/dL, but her free light chain assay continued to show elevated kappa/lambda ratio at 15.37. Her quantitative immunoglobulin levels showed IgG 1165 mg/dL with IgA low at 10 mg/dL and IgM low at 17 mg/dL. Her CBC showed stable hemoglobin at 12 g, but her ANC was low at 700. As of 05/06/2019 her treatment was put on hold due to persistent neutropenia. Her 24 hour urine protein electrophoresis showed no monoclonal protein. As of her follow-up visit in June 2019 there was evidence of disease progression with significant increase in her M protein and and her kappa free light chain. Her restaging PET/CT showed stable findings at the T1 vertebral body lesion and no evidence of any new lesions. With those findings, she began third line treatment with daratumumab/carfilzomib/dexamethasone on 08/12/2019. She has now completed 1 cycle of treatment. She tolerated her day 1/day 2 treatments very well. She developed mulitple side effects following her day 8 treatment, which she attibuted to the daratumumab. She was able to complete her day 9 carfilzomib treatment. Her day 15/16 treatment was withheld due to neutropenia, ANC 1000. She completed her week 3 daratumumab the following week, but with the dosage split over 2 days. She tolerated it without adverse effects. On 09/11/2019 continued with cycle 2 of daratumumab/carfilzomib/dexamethasone with the carfilzomib administered at a reduced dosage and with the daratumumab administered in a split dosage. She continued to have anemia, moderately severe neutropenia, and mild thrombocytopenia, but she was able to tolerate the treatment with acceptable toxicity. She has had some evidence of response, though not dramatic, with her repeat protein electrophoresis on 10/02/2019 showing decline in the M protein, to 1.1 g/dL. She proceeded with cycle 3 on 10/09/2019. Her blood counts at that point had remained adequate, and her clinical status appeared stable. At cycle 3-day 15 her carfilzomib was omitted due to neutropenia, ANC 1400. She did receive her 8th weekly daratumumab infusion, administered as a single dose. At that time she complained of increased shortness of breath, and she was found on pulmonary angiogram to have bilateral pulmonary emboli. She began on anticoagulation with apixaban. She continued to have moderately severe neutropenia, but she otherwise appeared stable clinically. She continued with her 4th cycle of treatment on 11/06/2019 with the daratumumab administered at 2-week intervals. At that point her M protein was stable at 1.2 g/dL. It was uncertain to what extent that may have reflected residual disease or monoclonal protein associated with the daratumumab. The serum free light chain assay had shown a decline in her free kappa light chain from 143.7 to 100.6 mg/L. She continued with cycle 5 on 12/04/2019. During followup she has continued to tolerate her treatment with acceptable toxicity. There has been a gradual decline in the M protein and in the serum free kappa light chain, so that she now just has a relatively small residual M protein. It is uncertain to what extent that may reflect residual myeloma versus the daratumumab. Her overall clinical status remains stable, but she has continued to have mild to moderately severe neutropenia. Plan: She will continue with cycle 8 of daratumumab in combination with carfilzomib and dexamethasone. The daratumumab now is being administered at 4-week intervals. She will be given a flu shot. She will be scheduled for a follow-up visit in 4 weeks. Signed By: Sean Sanchez M.D. <<Signature on File>>
[2020-03-23 15:23] LABS: ABNORMAL PROTEIN BAND 1 1.5 g/dL (NONE DETECTED); ALPHA 1 GLOBULIN 0.3 g/dL (0.2-0.3); ALPHA 2 GLOBULIN 0.7 g/dL (0.5-0.9); BETA 1 GLOBULIN 0.5 g/dL (0.4-0.6); BETA 2 GLOBULIN 0.2 g/dL (0.2-0.5); GAMMA GLOBULIN 1.5 g/dL (0.8-1.7)
== END 2020-03-18 06:00 | disposition home or self-care (01) ==
LOC: ONCMED 06:01
PROVIDERS: PCP Internal Medicine; Visit Provider Internal Medicine Medical Oncology
DX: C90.00 Multiple myeloma not having achieved remission (principal); Z23 Encounter for immunization; I10 Essential (primary) hypertension; E78.5 Hyperlipidemia, unspecified; I25.10 Atherosclerotic heart disease of native coronary artery without angina pectoris; E03.9 Hypothyroidism, unspecified; K21.9 Gastro-esophageal reflux disease without esophagitis; M47.9 Spondylosis, unspecified; M79.7 Fibromyalgia; F41.8 Other specified anxiety disorders; Z95.5 Presence of coronary angioplasty implant and graft; Z95.1 Presence of aortocoronary bypass graft; Z79.899 Other long term (current) drug therapy
CPT/HCPCS: 80053; 82784; 83883; 84155; 84165; 85025; 90471; 90686; 96361; 96367; 96413; 96415; 96417; 99214; J1200; J2405; J7040; J9047; J9145

== ENCOUNTER 2020-03-19 10:05 | Outpatient (CLI) | payer MEDICARE, SELFPAY ==
[2020-03-19] MEDS: sodium chloride 0.9% 500 ML 999 ML IV (10:32)
[2020-03-19] MEDS: acetaminophen 325 mg Tablet 650 MG PO (11:10)
[2020-03-19] MEDS: palonosetron 0.25 mg/5 mL SDV IV (11:10)
== END 2020-03-19 10:06 | disposition home or self-care (01) ==
LOC: ONCMED 10:07
PROVIDERS: PCP Internal Medicine; Visit Provider Internal Medicine Medical Oncology
DX: Z51.11 Encounter for antineoplastic chemotherapy (principal); C90.00 Multiple myeloma not having achieved remission; D47.2 Monoclonal gammopathy; D70.1 Agranulocytosis secondary to cancer chemotherapy; T45.1X5A Adverse effect of antineoplastic and immunosuppressive drugs, initial encounter
CPT/HCPCS: 96361; 96367; 96375; 96413; J1200; J2469; J7040; J9047

== ENCOUNTER 2020-03-25 06:24 | Outpatient (CLI) | payer MEDICARE, SELFPAY ==
[2020-03-25 10:14] LABS: Basophils % 0.2 %; Eosinophils % 0.7 %; Hematocrit 33.5 % (37.0-47.0); Hemoglobin 10.7 g/dL (11.5-15.3); Lymphocytes # 1.1 10^3/uL (0.8-4.8); Lymphocytes % 25.5 %; Mean Corpuscular HGB Conc 31.9 g/dL (30.0-36.0); Mean Corpuscular Hemoglobin 31.8 pg (28.0-34.0); Mean Corpuscular Volume 99.4 fL (81-99); Mean Platelet Volume 10.7 fL (7.4-10.4); Monocytes # 0.3 10^3/uL (0.2-0.9); Monocytes % 7.8 %; Neutrophils # 2.85 10^3/uL (1.8-7.7); Neutrophils % 65.6 %; Nucleated Red Blood Cells % 0 %; Platelet Count 122 10^3/cmm (130-400); Red Blood Count 3.37 10^6/uL (4.1-5.3); Red Cell Distribution Width 14.6 % (12.1-15.1); White Blood Count 4.4 10^3/uL (4.0-10.0)
[2020-03-25] MEDS: acetaminophen 325 mg Tablet 650 MG PO (10:42)
[2020-03-25] MEDS: sodium chloride 0.9% 500 ML 999 ML IV (10:42)
== END 2020-03-25 06:25 | disposition home or self-care (01) ==
LOC: ONCMED 06:26
PROVIDERS: Nurse Practitioner; PCP Internal Medicine; Visit Provider Internal Medicine Medical Oncology
DX: Z51.11 Encounter for antineoplastic chemotherapy (principal); C90.00 Multiple myeloma not having achieved remission; D47.2 Monoclonal gammopathy; D70.1 Agranulocytosis secondary to cancer chemotherapy; T45.1X5A Adverse effect of antineoplastic and immunosuppressive drugs, initial encounter
CPT/HCPCS: 85025; 96361; 96367; 96413; J1200; J2405; J7040; J9047

== ENCOUNTER 2020-03-26 06:04 | Outpatient (CLI) | payer MEDICARE, SELFPAY ==
[2020-03-26] MEDS: palonosetron 0.25 mg/5 mL SDV IV (09:56)
[2020-03-26] MEDS: sodium chloride 0.9% 500 ML 75 ML IV (10:30)
== END 2020-03-26 06:05 | disposition home or self-care (01) ==
LOC: ONCMED 06:05
PROVIDERS: PCP Internal Medicine; Visit Provider Nurse Practitioner
DX: Z51.11 Encounter for antineoplastic chemotherapy (principal); C90.00 Multiple myeloma not having achieved remission; D47.2 Monoclonal gammopathy; D70.1 Agranulocytosis secondary to cancer chemotherapy; T45.1X5A Adverse effect of antineoplastic and immunosuppressive drugs, initial encounter
CPT/HCPCS: 96361; 96367; 96375; 96413; J1200; J2469; J7040; J9047

== ENCOUNTER 2020-04-01 06:29 | Outpatient (CLI) | payer MEDICARE, SELFPAY ==
[2020-04-01] MEDS: sodium chloride 0.9% 500 ML 999 ML IV (09:37)
[2020-04-01 09:49] LABS: Eosinophils % 0.5 %; Hematocrit 34.3 % (37.0-47.0); Lymphocytes # 0.8 10^3/uL (0.8-4.8); Mean Corpuscular HGB Conc 32.1 g/dL (30.0-36.0); Mean Corpuscular Hemoglobin 32.4 pg (28.0-34.0); Mean Corpuscular Volume 100.9 fL (81-99); Monocytes # 0.1 10^3/uL (0.2-0.9); Monocytes % 2.9 %; Neutrophils # 3.18 10^3/uL (1.8-7.7); Neutrophils % 77.4 %; Nucleated Red Blood Cells % 0 %; Platelet Count 144 10^3/cmm (130-400); Red Cell Distribution Width 15.3 % (12.1-15.1); White Blood Count 4.1 10^3/uL (4.0-10.0)
[2020-04-01 10:06] LABS: Alanine Aminotransferase 13 U/L (0-33); Albumin Level 4.1 g/dL (3.5-5.2); Alkaline Phosphatase 72 IU/L (35-105); Anion Gap 12.5 (5-19); Aspartate Amino Transferase 18 U/L (0-32); Blood Urea Nitrogen 11 mg/dL (8-23); Carbon Dioxide 27 mmol/L (22-29); Chloride 104 mmol/L (98-107); Globulin 3.2 g/dL (1.3-4.6); Glomerular Filtration Rate 71.1 mL/min (90-130); Glucose 104 mg/dL (65-115); Osmolality Calculated 288 mOsm/kg (285-295); Potassium 4.5 mmol/L (3.5-5.1); Sodium 139 mmol/L (136-145); Total Bilirubin 0.4 mg/dL (0.15-1.2); Total Protein 7.3 g/dL (6.6-8.7)
[2020-04-01] MEDS: acetaminophen 325 mg Tablet 650 MG PO (10:25)
== END 2020-04-01 06:30 | disposition home or self-care (01) ==
LOC: ONCMED 06:30
PROVIDERS: PCP Internal Medicine; Visit Provider Nurse Practitioner
DX: Z51.11 Encounter for antineoplastic chemotherapy (principal); C90.00 Multiple myeloma not having achieved remission; D47.2 Monoclonal gammopathy; D70.1 Agranulocytosis secondary to cancer chemotherapy; T45.1X5A Adverse effect of antineoplastic and immunosuppressive drugs, initial encounter
CPT/HCPCS: 80053; 85025; 96361; 96367; 96413; J1200; J2405; J7040; J9047

== ENCOUNTER 2020-04-02 06:05 | Outpatient (CLI) | payer MEDICARE, SELFPAY ==
[2020-04-02] MEDS: sodium chloride 0.9% 500 ML 999 ML IV (09:53)
[2020-04-02] MEDS: palonosetron 0.25 mg/5 mL SDV IV (10:11)
== END 2020-04-02 06:06 | disposition home or self-care (01) ==
LOC: ONCMED 06:07
PROVIDERS: PCP Internal Medicine; Visit Provider Nurse Practitioner
DX: Z51.11 Encounter for antineoplastic chemotherapy (principal); C90.00 Multiple myeloma not having achieved remission; D47.2 Monoclonal gammopathy; D70.1 Agranulocytosis secondary to cancer chemotherapy; T45.1X5A Adverse effect of antineoplastic and immunosuppressive drugs, initial encounter
CPT/HCPCS: 96361; 96367; 96375; 96413; J1200; J2469; J7040; J9047

== ENCOUNTER 2020-04-15 05:57 | Outpatient (CLI) | payer MEDICARE, SELFPAY ==
[2020-04-15 09:19] LABS: Basophils % 0.4 %; Eosinophils % 1.1 %; Hematocrit 33.5 % (37.0-47.0); Hemoglobin 10.4 g/dL (11.5-15.3); Lymphocytes # 0.9 10^3/uL (0.8-4.8); Lymphocytes % 31.8 %; Mean Corpuscular Hemoglobin 32.5 pg (28.0-34.0); Mean Corpuscular Volume 104.7 fL (81-99); Mean Platelet Volume 9.5 fL (7.4-10.4); Monocytes # 0.3 10^3/uL (0.2-0.9); Monocytes % 11.8 %; Neutrophils # 1.54 10^3/uL (1.8-7.7); Neutrophils % 54.9 %; Nucleated Red Blood Cells % 0 %; Platelet Count 225 10^3/cmm (130-400); Red Cell Distribution Width 14.7 % (12.1-15.1); White Blood Count 2.8 10^3/uL (4.0-10.0)
[2020-04-15 10:07] LABS: Alanine Aminotransferase 18 U/L (0-33); Albumin Level 3.8 g/dL (3.5-5.2); Alkaline Phosphatase 75 IU/L (35-105); Anion Gap 12.1 (5-19); Aspartate Amino Transferase 21 U/L (0-32); Blood Urea Nitrogen 9 mg/dL (8-23); Carbon Dioxide 28 mmol/L (22-29); Chloride 101 mmol/L (98-107); Globulin 3.5 g/dL (1.3-4.6); Glomerular Filtration Rate 82.7 mL/min (90-130); Glucose 96 mg/dL (65-115); Osmolality Calculated 283 mOsm/kg (285-295); Potassium 4.1 mmol/L (3.5-5.1); Sodium 137 mmol/L (136-145); Total Bilirubin 0.3 mg/dL (0.15-1.2); Total Protein 7.3 g/dL (6.6-8.7)
[2020-04-15] MEDS: sodium chloride 0.9% 500 ML 999 ML IV (10:42)
[2020-04-15] MEDS: acetaminophen 325 mg Tablet 650 MG PO (10:42)
[2020-04-15 11:57] LABS: Immunoglobulin IGA 50 mg/dL (70-400); Immunoglobulin IGG 1833 mg/dL (700-1600); Immunoglobulin IGM 25 mg/dL (40-230)
[2020-04-16 09:33] LABS: PROTEIN, TOTAL 6.8 g/dL (6.1-8.1)
[2020-04-17 14:29] LABS: ABNORMAL PROTEIN BAND 1 1.5 g/dL (NONE DETECTED); ALBUMIN 3.4 g/dL (3.8-4.8); ALPHA 1 GLOBULIN 0.4 g/dL (0.2-0.3); ALPHA 2 GLOBULIN 0.8 g/dL (0.5-0.9); BETA 1 GLOBULIN 0.4 g/dL (0.4-0.6); BETA 2 GLOBULIN 0.2 g/dL (0.2-0.5); GAMMA GLOBULIN 1.6 g/dL (0.8-1.7)
[2020-04-17 15:33] LABS: KAPPA LIGHT CHAIN, FREE, SERUM 109.4 mg/L (3.3-19.4); LAMBDA LIGHT CHAIN, FREE, SERU <1.5 mg/L (5.7-26.3)
--- NOTE | 2020-04-19 11:47 | ONC FU_ITS ---
Dr. Sanchez Patient Follow-Up Note Patient: Karely Armenta Unit #: [id number]: 1950 Dicatated By: Sean Sanchez M.D.Date of Visit:Apr 15, 2020 Onc Med Follow-up/Prog Note Chief Complaint: Myeloma. History of Present Illness: This is a 69 year-old woman with IgG kappa myeloma. She was found to be moderately anemic in December 2016 when she was admitted to the hospital with pneumonia. She also reported having had an illness the preceding summer, in October or November, which may have been tick fever, but that was never confirmed. Her follow-up laboratory studies with Dr. Garcia on 05/03/2017 included CBC showing hemoglobin 11.9 g with white blood cell count 5100 and platelet count 155,000. Her sedimentation rate was significantly elevated at 94 mm/hour. The chem profile showed normal renal function with BUN 13 and creatinine 0.96 mg/dL. Calcium was normal at 9.0 mg/dL. The total protein was elevated at 9.0 g/dL with albumin 4.0 g/dL and calculated serum globulin elevated at 5.0 g/dL. Protein electrophoresis showed a monoclonal protein quantitating at 2.5 g/dL. Immunofixation showed an IgG kappa paraprotein measuring 2.87 g/dL. Hepatits screen was nonreactive to hepatitis C, hepatitis Bs antigen, and hepatitis B core total Ab referral. The hepatitis B surface antibody was < 3.10. LDH was normal at 149 U/L. The beta-2 microglobulin was slightly elevated at 0.420 mg/dL. I had seen her initially on 05/11/2017. Repeat protein electrophoresis with immunofixation prior to that visit, from 05/09/2017, showed IgG kappa monoclonal protein quantitating at 2.87 g/dL. The kappa light chain was elevated at 177.96 mg/L with lambda light chain 1.73 mg/L and kappa/lambda ratio elevated at 102. On her further evaluation there was no monoclonal protein detected in a 24-hour urine specimen. Skeletal survey on 05/11/2017 showed cervical and lumbar spondylosis and bilateral hip joint osteoarthritic changes. There was no radiographic evidence of multiple myeloma. She underwent bone marrow aspiration/biopsy on 05/17/2017. The cellularity was estimated at 70% with 32% plasma cells. Iron stores were noted to be absent. The FISH panel for myeloma showed gain of chromosome 1q, deletions of RB 1 and LAMP1, and gain of IG. The standard chromosome analysis was normal. Overall, the findings were consistent with plasma cell neoplasm/myeloma. Staging PET/CT on 06/03/2017 showed a single FDG avid osteolytic site in the T1 vertebral body which was felt to possibly represent multiple myeloma. She then had further evaluation with MRI of the spine on 07/12/2017. There were significant degenerative changes in the cervical spine which included moderate central canal stenosis at C4-C5, C5-C6, and C7 as well as bilateral nerve root encroachment at C5, C6, and C7. There were also degenerative changes in the lumbar spine with interval STIR signal abnormality and enhancement of T10-L5 spinous processes suggesting possible myelomatous changes. The thoracic spine showed subtle diffuse signal and enhancement abnormality involving the T1 vertebral body. In correlation with the PET/CT findings, this was felt to be suspicious for neoplastic process, including multiple myeloma. There were no actual lytic lesions identified. She had further laboratory evaluation on 07/26/2017. Her CBC at that point showed hemoglobin down slightly to 10.1 g with white blood cell count 3700 and platelet count 122,000. Chem profile showed borderline renal function with BUN 12 and creatinine 1.1 mg/dL and calculated GFR 49 mm/hour. Repeat protein electrophoresis showed M protein increased to 3.22 g/dL compared to 2.87 g/dL in April. Her quantitative immunoglobulin levels showed elevated IgG at 3800 mg/dL and IgA low at less than 8.00 and IgM low at 5.50 mg/dL. Her serum iron studies showed normal transferrin saturation at 30.9%, but ferritin was low at 14.4 ng/mL. B12 level was in low-normal range at 288 pg/mL. She is seen for a follow-up visit on 08/14/2017. At that point she did agree to begin treatment with Velcade/Revlimid/dexamethasone. She began her cycle 1 of Velcade/Revlimid/dexamethasone on 09/11/2017. At that time she also began prophylaxis with Bactrim and acyclovir. When she returned for her day 4 Velcade injection, she had developed a significant skin eruption, and she was advised to stop both the Revlimid and the Bactrim. At day 8 she had a reduction in the Velcade dosage to 1.0 mg/m???, as her neutrophil count had dropped to 800 and she also was experiencing some neuropathy. The Revlimid remained on hold. As of 10/17/2017 the ANC was still only 700, and I did opt to delay her 2nd cycle of treatment. Her repeat protein electrophoresis from 10/09/2017 did show a decline in her M protein to 2.71 g/dL compared to a pretreatment level of 3.73 g/dL. She eventually continued with cycle 2 on 10/23/2017 with the Velcade dosage reduced at 1.0 mg/m???. The Revlimid dosage was reduced to 10 mg. Despite the reductions, her cycle 3 was delayed again due to neutropenia. Her repeat protein electrophoresis on 11/20/2017 showed essentially stable M protein level at 2.77 g/dL. She continued with cycle 3 on 12/04/2017. Her neutrophil count at that point was back up to 1900. With that cycle she stopped Revlimid after 1 day and her day for Velcade was held due to multiple symptoms including sore throat, swelling in her throat, hoarseness, and cough. She did receive day 8 Velcade, but her day 11 treatment also was held. She eventually did continue with a 4th cycle of treatment on 12/26/2017 and with the 5th cycle on a 01/16/2018, but with both of those she showed up for only 3 of her scheduled Velcade injections. As of cycle 5 her M protein was still basically stable at 2.82 g/dL. Beginning with cycle 6 her treatment was changed to a 28 day cycle with Velcade administered on days 1, 8, and 15, with Revlimid administered on a day schedule, and with dexamethasone administered weekly. With that change her compliance improved. As of 03/05/2018 she began her 7th cycle of treatment. At that point her serum protein electrophoresis had shown a significant decline in the M protein, to 1.41 g/dL. With continued treatment there was further decline in the M protein. As of 05/08/2018 on day 8 of cycle 9 it had decreased to 0.84 g/dL. However, at day 1 of cycle 10 on 05/30/2018 it increased slightly to 1.11 g/dL. At cycle 10 day 22 on 06/19/2018 it had stabilized at 1.09 g/dL. Restaging PET/CT on 06/23/2018 showed the T1 lesion to be weakly FDG positive and unchanged from the previous study in May 2017. Given those findings, I did opt to put her further treatment on hold. Her repeat protein electrophoresis on 07/20/2018 showed an increase in the M protein to 1.4 g/dL. The free light chain assay showed elevated kappa light chain at 83.8 mg/L with lambda light chain 2.9 mg/L and elevated kappa/lambda ratio at 28.90. With those findings, she was advised to continue to second line treatment. She had indicated that she preferred not to be on any type of IV infusion. As such, I recommend a trial of therapy with Revlimid/ixazomib/dexamethasone. She began cycle 1 of Revlimid/ixazomib/dexamethasone on 08/29/2018. Due to her previous toxicities with Revlimid, it was initiated at a reduced dosage of 10 mg daily on a 21/28 day schedule with ixazomib dosed at 4 mg on days 18 and 15 and the dexamethasone dose at 40 mg weekly. She was able to tolerate it with acceptable toxicity, and she continued with cycle 2 on 09/26/2018 and with cycle 3 on 10/25/2018. Her repeat protein electrophoresis in September did show some decline in the M protein, to 1.0 g/dL. It then stabilized, and she continued her same treatment. As of 01/24/2019 the protein electrophoresis showed her quantitative M protein at 1.1 g/dL. The free light chain assay showed kappa light chain elevated at 105.1 mg/L, lambda light chain 7.0 mg/L, and elevated kappa/lambda ratio at 15.01. She continued treatment with Revlimid/ixazomib/dexamethasone. As of 04/22/2019 her protein electrophoresis showed M protein stable at 0.9 g/dL, but her free light chain assay continued to show elevated kappa/lambda ratio at 15.37. Her quantitative immunoglobulin levels showed IgG 1165 mg/dL with IgA low at 10 mg/dL and IgM low at 17 mg/dL. Her CBC showed stable hemoglobin at 12 g, but her ANC was low at 700. As of 05/06/2019 her treatment was put on hold due to persistent neutropenia. Her 24 urine protein electrophoresis showed no monoclonal protein. Her other medical illnesses include hypertension, hyperlipidemia, coronary artery disease, hypothyroidism, GERD, fibromyalgia, degenerative arthritis, and anxiety/depression. Her surgical/procedural history includes coronary angioplasty/stent placement 2015. She has arthroscopic left knee surgery, and she also has had surgery on the right shoulder. She has history of smoking for 25 years, from 1-3 packs of cigarettes daily. She quit smoking in 1989. She has had just occasional alcohol use. She is [employer], and she will not accept blood products. INTERIM HISTORY: In May 2019 she had taken a trip to [place], and while she was there she became very ill and required treatment for pneumonia. She returned here for a follow-up visit in June. Her repeat protein electrophoresis on 07/02/2019 showed increase in the M protein to 2.0 g/dL. Her free light chain assay showed increased kappa light chain to 142 mg/L with lambda light chain 2.9 mg/L, and elevated kappa/lambda ratio at 49.38. Restaging PET/CT on 07/13/2019 showed stable findings in the T1 lesion with FDG activity no greater than that of marrow background, consistent with successfully treated disease. There was no evidence of any new lesions. However, with the significant increase in the M protein and in the kappa free light chain, she was recommended to proceed with third line treatment with daratumumab in combination with carfilzomib and dexamethasone. She underwent placement of Port-A-Cath venous access device in preparation for that treatment. Her baseline echocardiogram showed normal left ventricular function with ejection fraction estimated at 60%. She returned to begin cycle 1 of daratumumab/carfilzomib/dexamethasone on 08/12/2019. The initial infusion of daratumumab was administered in divided doses over 2 days. She tolerated the treatment well. However, her day 8 treatment was complicated by nausea and profuse diaphoresis, which she attributed to the daratumumab. She was able to complete her day 9 carfilzomib treatment. Her day 15/16 treatment was withheld due to a drop in her white blood cell count to 2000 with her ANC at 1000. She did not have fever or other complications. She was given her week 3 daratumumab the following week, but I did opt to split the dosage over 2 days. She tolerated it with no adverse effects. She continued with cycle 2 on 09/11/2019 with the carfilzomib administered at a reduced dosage and with the daratumumab administered in a split dosage. She continued to have anemia, moderately severe neutropenia, and mild thrombocytopenia, but she was able to tolerate the treatment with acceptable toxicity. As of 10/02/2019 the M protein had decreased to 1.1 g/dL. She proceeded with cycle 3 on 10/09/2019. At cycle 3-day 15, on 10/22/2019, her carfilzomib was omitted due to neutropenia, ANC 1400. She did receive her 8th weekly infusion of daratumumab, administered as a single infusion. At that time she also was complaining increased shortness of breath, and a CT pulmonary angiogram showed small filling defects in both the right and left secondary pulmonary arteries consistent with thromboembolic disease. Altered perfusion was seen in those areas. As it did appear to be clinically significant, she was started on anticoagulation with apixaban. She continued with her 4th cycle of treatment on 11/06/2019 with the daratumumab administered at 2-week intervals. At that point her M protein was stable at 1.2 g/dL. The serum free light chain assay, though, did show a decline in her free kappa light chain from 143.7 to 100.6 mg/L. She began cycle 5 on 12/04/2019. Her M protein was down slightly, to 1.1 g/dL. As of 01/01/2020 it had further declined to 0.9 g/dL. She continued with her 6th cycle of treatment, and she then continued with cycle 7 on 02/19/2020 and with cycle 8 on 03/18/2020. She is seen for a followup visit. She has had a recent extraction of her upper teeth. She is on antibiotic prophylaxis following that procedure. She continues to have some fatigue, but she is able to do light work. ECOG score is 1. Appetite has been down following her dental extractions. She does not have fever. She occasionally has sweating at night. She has no shortness of breath, cough, or chest pain. She has no GI or complaints. She has her usual pain in her back and hips, which is unchanged. She has been having some headaches and some dizziness. She has no focal neurologic symptoms. Medications: amLODIPine Besylate 1 Tablet (of 5 mg) Oral daily, Body/Hair/Skin/Nails 2 Capsule Oral daily, Dkeuksmsyw-HHIO-Hdpv-Cod 1 (67-166-69-30 mg) Capsule Oral four times a day PRN, Cholecalciferol 2 (1000 Units) Capsule Oral daily, Curcumin 95 1 (500 mg) Capsule Oral daily PRN, Cymbalta 1 (60 mg) Capsule Delayed Release Particles Oral daily, Eliquis 1 Tablet (of 5 mg) Oral b.i.d., Furosemide 1 Tablet (of 20 mg) Oral daily PRN, Levothyroxine Sodium 1 (50 mcg) Tablet Oral daily, Lisinopril 1 (25 mg) Tablet Oral daily, LORazepam 0.5 - 1 (1 mg) Tablet Oral q 4 hours PRN, Multivitamin Adult 1 Tablet Oral daily, Nitroglycerin 1 (400 mcg/spray) Aerosol, solution Translingual PRN, OxyCODONE HCl 1 (30 mg) Tablet Oral 5x/d PRN, Pantoprazole Sodium 1 Tablet (of 40 mg) Tablet, enteric coated Oral daily, Plavix 1 (75 mg) Tablet Oral daily, Potassium Chloride ER 1 Tablet (of 10 meq) Tablet, controlled release Oral daily PRN, Pravastatin Sodium 1 (40 mg) Tablet Oral daily, Prochlorperazine Maleate 1 (10 mg) Tablet Oral four times a day PRN, QUEtiapine Fumarate 2 Tablet (of 25 mg) Oral at bedtime, Soma 1 (350 mg) Tablet Oral four times a day PRN Allergies: Codeine Sulfate, LevoFLOXacin, and Vicodin. Review of Systems: Constitutional - She has fatigue, she is able to do light work. Appetite recently has been down due to dental extractions. She has not had fever. She occasionally has sweating at night. ECOG score is 1, ENMT - No sinus congestion/drainage. She has had a recent extraction of her upper teeth. No sore throat or difficulty swallowing, Hematologic/Lymphatic - She has some bruising, Respiratory - No shortness of breath. No cough. No pleuritic pain or hemoptysis, Cardiovascular - No angina pain. No palpitations, Gastrointestinal - No nausea or vomiting. No heartburn or acid reflux. No diarrhea or constipation. No blood in the stool or black stools, Genitourinary (F) - No dysuria or hematuria. No urinary frequency. No urgency or incontinence, Musculoskeletal - She has pain in her back and hips, which is about the same, Integumentary - No skin rash, Neurologic - She has been having a little headache, and she has dizziness. No numbness or tingling. No other focal neurologic symptoms, Psychiatric - No anxiety or depression. She sometimes has difficulty sleeping. Vital Signs: Performed on Apr 15, 2020 09:56 Height - 66.00 in Weight - 164.0 lbs (LOW) BSA - 1.84 sq.m BMI - 26.47 Temperature - 98.1 F (LOW) Pulse - 78 /min Respiration - 22 /min BP - 170/87 mm(hg) (HIGH) O2 Sat - 95 % (LOW) Pain - 10 Physical Examination: Constitutional - She looks pretty good generally, Eyes - Sclerae nonicteric. Conjunctivae clear, ENMT - She has had a recent extraction of her upper teeth. The mucosa appears to be healing well. No other lesions noted in the oral cavity, Hematologic/Lymphatic - No cervical, clavicular, or axillary adenopathy, Respiratory - Lungs are clear with good air movement bilaterally, Cardiovascular - Heart rhythm is regular. There is no murmur, gallop, or rub noted, Abdomen - Soft. Liver and spleen are not enlarged. There is no abdominal mass or ascites noted and there is no inguinal adenopathy, Extremities - No edema, Neurologic - No focal neurologic deficits noted. Lab/Imaging: Test performed on Apr 15, 2020 08:47 Sodium 137 mmol/L Potassium 4.1 mmol/L Chloride 101 mmol/L CO2 28 mmol/L Anion Gap 12.1 BUN 9 mg/dL Creatinine 0.7 mg/dL Cr Clearance (Est) 89.8600 mL/min eGFR 82.7 mL/min Glucose 96 mg/dL Osmolality - Calculated 283 mOsm/kg Calcium 9.0 mg/dL Protein, Total 7.3 g/dL Albumin 3.8 g/dL Globulin 3.5 g/dL Bilirubin, Total 0.3 mg/dL ALT (SGPT) 18 U/L AST (SGOT) 21 U/L Alkaline Phosphatase 75 IU/L WBC 2.8 10 3/uL RBC 3.20 10 6/uL HGB 10.4 g/dL HCT 33.5 % MCV 104.7 fL MCH 32.5 pg MCHC 31.0 g/dL RDW 14.7 % Platelet Count 225 10 3/cmm MPV 9.5 fL Neutrophils 1.54 10 3/uL Lymphocytes 0.9 10 3/uL Monocytes 0.3 10 3/uL Eosinophils 0.0 10 3/uL Basophils 0.0 10 3/uL Neutrophil % 54.9 % Lymphocyte % 31.8 % Monocyte % 11.8 % Eosinophil % 1.1 % Basophils % 0.4 % NRBC % 0 % IgG 1833 mg/dL [place] Free Light Chains 109.4 mg/L Lambda Free Light Chains < 1.5 mg/L IgA 50 mg/dL [place]/Lambda Free Ratio > 72.93 IgM 25 mg/dL Impression: 1. Patient with IgG kappa myeloma. Bone marrow aspiration/biopsy on 05/17/2017 showed 32% plasma cells, consistent with myeloma. The FISH panel showed gain of chromosome 1q, deletions of RB 1 and LAMP1, and gain of IG. Her baseline M protein was 2.87 g/dL. She was mildly anemic and she had significantly elevated sedimentation rate. She had normal renal function and negative 24-hour urine protein electrophoresis. Skeletal survey showed no lytic bone involvement. PET/CT and MRI both showed findings suspicious for involvement of the T1 vertebral body. She does not appear to be overtly symptomatic with it. 2. Her bone marrow also showed absent storage iron. Her other medical illnesses include: 3. Hypertension. 4. Hyperlipidemia. 5. Coronary artery disease with angioplasty/stent placement in February 2016. 6. Hypothyroidism. 7. GERD. 8. Degenerative arthritis/degenerative disease of the spine. 9. Fibromyalgia. 10. Anxiety/depression. She has been undergoing treatment with Velcade/Revlimid/dexamethasone, cycle 1 beginning on 09/11/2017. Overall, her treatment was very suboptimal due in part to multiple side effects which included skin eruption and neutropenia, among others. Compliance also had been somewhat of an issue. Beginning with her 6th cycle of treatment, on 02/05/2018, her treatment was changed to a 28 day schedule with Velcade administered at a reduced dosage on days 1, 8, and 15, with Revlimid administered at 10 mg daily on a 21/28 day schedule, and with dexamethasone administered weekly. She began cycle 7 on 03/05/2018. Her serum protein electrophoresis at that point did show a significant decrease in the M protein, to 1.41 g/dL. She then continued treatment at the same dosages, but intermittently she still had moderately severe neutropenia. She had otherwise been tolerating the treatment well. She began her 10th cycle of treatment on 05/30/2018. At that point her M protein had stabilized at just over 1 g/dL. She appeared stable clinically, and restaging PET/CT showed only mild FDG activity in the T1 lesion. There were no other areas of FDG uptake, and there was no significant change compared to the prior study in May 2017. As on 07/20/2018 her repeat protein electrophoresis showed a significant increase in the M protein to 1.4 g/dL, and her free light chain assay showed an increase in the kappa/lambda ratio to28.90. With those findings, she was advised to proceed with second line treatment. She indicated that she preferred not to have any IV medication. As such, on 08/29/2018 she began a trial of therapy with Revlimid/ixazomib/dexamethasone. Due to her previous toxicities, the Revlimid was initiated at a reduced dosage of 10 mg daily on a 21/28 day schedule. As of October 2018, following 3 cycles of treatment, her M protein had stabilized at 1.0 g/dL. She continued her same treatment, and as of 01/24/2019 her M protein and her free light chain had remained stable. Her clinical status at that time also appeared stable, and she continued treatment with Revlimid, ixazomib, and dexamethasone at the same dosages. As of 04/22/2019 her protein electrophoresis showed M protein stable at 0.9 g/dL, but her free light chain assay continued to show elevated kappa/lambda ratio at 15.37. Her quantitative immunoglobulin levels showed IgG 1165 mg/dL with IgA low at 10 mg/dL and IgM low at 17 mg/dL. Her CBC showed stable hemoglobin at 12 g, but her ANC was low at 700. As of 05/06/2019 her treatment was put on hold due to persistent neutropenia. Her 24 hour urine protein electrophoresis showed no monoclonal protein. As of her follow-up visit in June 2019 there was evidence of disease progression with significant increase in her M protein and and her kappa free light chain. Her restaging PET/CT showed stable findings at the T1 vertebral body lesion and no evidence of any new lesions. With those findings, she began third line treatment with daratumumab/carfilzomib/dexamethasone on 08/12/2019. She has now completed 1 cycle of treatment. She tolerated her day 1/day 2 treatments very well. She developed mulitple side effects following her day 8 treatment, which she attibuted to the daratumumab. She was able to complete her day 9 carfilzomib treatment. Her day 15/16 treatment was withheld due to neutropenia, ANC 1000. She completed her week 3 daratumumab the following week, but with the dosage split over 2 days. She tolerated it without adverse effects. On 09/11/2019 continued with cycle 2 of daratumumab/carfilzomib/dexamethasone with the carfilzomib administered at a reduced dosage and with the daratumumab administered in a split dosage. She continued to have anemia, moderately severe neutropenia, and mild thrombocytopenia, but she was able to tolerate the treatment with acceptable toxicity. She has had some evidence of response, though not dramatic, with her repeat protein electrophoresis on 10/02/2019 showing decline in the M protein, to 1.1 g/dL. She proceeded with cycle 3 on 10/09/2019. Her blood counts at that point had remained adequate, and her clinical status appeared stable. At cycle 3-day 15 her carfilzomib was omitted due to neutropenia, ANC 1400. She did receive her 8th weekly daratumumab infusion, administered as a single dose. At that time she complained of increased shortness of breath, and she was found on pulmonary angiogram to have bilateral pulmonary emboli. She began on anticoagulation with apixaban. She continued to have moderately severe neutropenia, but she otherwise appeared stable clinically. She continued with her 4th cycle of treatment on 11/06/2019 with the daratumumab administered at 2-week intervals. At that point her M protein was stable at 1.2 g/dL. It was uncertain to what extent that may have reflected residual disease or monoclonal protein associated with the daratumumab. The serum free light chain assay had shown a decline in her free kappa light chain from 143.7 to 100.6 mg/L. She continued with cycle 5 on 12/04/2019. During followup she has continued to tolerate her treatment with acceptable toxicity. There has been a gradual decline in the M protein and in the serum free kappa light chain, so that she now just has a relatively small residual M protein. It is uncertain to what extent that may reflect residual myeloma versus the daratumumab. She has continued to have mild to moderately severe neutropenia, but her blood counts have remained adequate and her overall clinical status remains stable. Plan: She will continue with cycle 9 of daratumumab in combination with carfilzomib and dexamethasone. She will be scheduled for a follow-up visit in 4 weeks. Signed By: Sean Sanchez M.D. <<Signature on File>>
== END 2020-04-15 05:58 | disposition home or self-care (01) ==
LOC: ONCMED 05:59
PROVIDERS: PCP Internal Medicine; Visit Provider Internal Medicine Medical Oncology
DX: Z51.12 Encounter for antineoplastic immunotherapy (principal); Z51.11 Encounter for antineoplastic chemotherapy; C90.00 Multiple myeloma not having achieved remission; D70.1 Agranulocytosis secondary to cancer chemotherapy; T45.1X5D Adverse effect of antineoplastic and immunosuppressive drugs, subsequent encounter; I10 Essential (primary) hypertension; E78.5 Hyperlipidemia, unspecified; I25.10 Atherosclerotic heart disease of native coronary artery without angina pectoris; E03.9 Hypothyroidism, unspecified; K21.9 Gastro-esophageal reflux disease without esophagitis; M47.9 Spondylosis, unspecified; M79.7 Fibromyalgia; F41.8 Other specified anxiety disorders; Z95.5 Presence of coronary angioplasty implant and graft; Z95.1 Presence of aortocoronary bypass graft; Z79.899 Other long term (current) drug therapy
CPT/HCPCS: 80053; 82784; 83883; 84155; 84165; 85025; 96361; 96367; 96413; 96415; 96417; 99214; J1200; J2405; J7040; J9047; J9145

== ENCOUNTER 2020-04-22 06:13 | Outpatient (CLI) | payer MEDICARE, SELFPAY ==
[2020-04-22 09:26] LABS: Basophils % 0.2 %; Eosinophils # 0.1 10^3/uL (0.0-0.8); Eosinophils % 1.1 %; Hematocrit 31.6 % (37.0-47.0); Hemoglobin 10.2 g/dL (11.5-15.3); Lymphocytes % 20.5 %; Mean Corpuscular HGB Conc 32.3 g/dL (30.0-36.0); Mean Corpuscular Hemoglobin 32.6 pg (28.0-34.0); Mean Platelet Volume 10.4 fL (7.4-10.4); Monocytes # 0.3 10^3/uL (0.2-0.9); Monocytes % 6.4 %; Neutrophils # 3.35 10^3/uL (1.8-7.7); Neutrophils % 71.6 %; Nucleated Red Blood Cells % 0 %; Platelet Count 163 10^3/cmm (130-400); Red Blood Count 3.13 10^6/uL (4.1-5.3); Red Cell Distribution Width 14.8 % (12.1-15.1); White Blood Count 4.7 10^3/uL (4.0-10.0)
[2020-04-22] MEDS: acetaminophen 325 mg Tablet 650 MG PO (10:09)
[2020-04-22] MEDS: sodium chloride 0.9% 500 ML 999 ML IV (10:09)
[2020-04-22] MEDS: ondansetron 2 mg/ML SDV 2 mL 8 MG IV (10:31)
[2020-04-22] MEDS: diphenhydrAMINE 50 mg/mL SDV 1mL IV (10:34)
[2020-04-22] MEDS: sodium chloride 0.9% (100 ml) 100 ML 500 ML (10:34)
== END 2020-04-22 06:14 | disposition home or self-care (01) ==
LOC: ONCMED 06:14
PROVIDERS: PCP Internal Medicine; Visit Provider Nurse Practitioner
DX: Z51.11 Encounter for antineoplastic chemotherapy (principal); C90.00 Multiple myeloma not having achieved remission; D47.2 Monoclonal gammopathy; D70.1 Agranulocytosis secondary to cancer chemotherapy; T45.1X5D Adverse effect of antineoplastic and immunosuppressive drugs, subsequent encounter
CPT/HCPCS: 85025; 96361; 96367; 96375; 96413; J1200; J2405; J7040; J9047

== ENCOUNTER 2020-04-23 06:10 | Outpatient (CLI) | payer MEDICARE, SELFPAY ==
[2020-04-23] MEDS: sodium chloride 0.9% 500 ML 999 ML IV (08:40)
[2020-04-23] MEDS: palonosetron 0.25 mg/5 mL SDV IV (09:00)
== END 2020-04-23 06:11 | disposition home or self-care (01) ==
LOC: ONCMED 06:12
PROVIDERS: PCP Internal Medicine; Visit Provider Nurse Practitioner
DX: Z51.11 Encounter for antineoplastic chemotherapy (principal); C90.00 Multiple myeloma not having achieved remission; D47.2 Monoclonal gammopathy; D70.1 Agranulocytosis secondary to cancer chemotherapy; T45.1X5A Adverse effect of antineoplastic and immunosuppressive drugs, initial encounter
CPT/HCPCS: 96361; 96367; 96375; 96413; J1200; J2469; J7040; J9047

== ENCOUNTER 2020-04-29 05:53 | Outpatient (CLI) | payer MEDICARE, SELFPAY ==
[2020-04-29 08:32] LABS: Basophils % 0.2 %; Eosinophils % 0.2 %; Hematocrit 33.1 % (37.0-47.0); Hemoglobin 10.7 g/dL (11.5-15.3); Lymphocytes # 0.4 10^3/uL (0.8-4.8); Lymphocytes % 9.7 %; Mean Corpuscular HGB Conc 32.3 g/dL (30.0-36.0); Mean Corpuscular Hemoglobin 33.2 pg (28.0-34.0); Mean Corpuscular Volume 102.8 fL (81-99); Mean Platelet Volume 11.1 fL (7.4-10.4); Monocytes # 0.1 10^3/uL (0.2-0.9); Monocytes % 1.2 %; Neutrophils # 3.81 10^3/uL (1.8-7.7); Neutrophils % 88.5 %; Nucleated Red Blood Cells % 0 %; Platelet Count 156 10^3/cmm (130-400); Red Blood Count 3.22 10^6/uL (4.1-5.3); White Blood Count 4.3 10^3/uL (4.0-10.0)
[2020-04-29] MEDS: sodium chloride 0.9% 500 ML 999 ML IV (09:20)
[2020-04-29] MEDS: acetaminophen 325 mg Tablet 650 MG PO (09:20)
[2020-04-29] MEDS: ondansetron 2 mg/ML SDV 2 mL 8 MG IV (09:29)
[2020-04-29] MEDS: diphenhydrAMINE 50 mg/mL SDV 1mL IV (09:40)
[2020-04-29] MEDS: sodium chloride 0.9% (100 ml) 100 ML 75 ML (09:40)
== END 2020-04-29 05:54 | disposition home or self-care (01) ==
LOC: ONCMED 05:54
PROVIDERS: PCP Internal Medicine; Visit Provider Nurse Practitioner
DX: Z51.11 Encounter for antineoplastic chemotherapy (principal); C90.00 Multiple myeloma not having achieved remission; D47.2 Monoclonal gammopathy; D70.1 Agranulocytosis secondary to cancer chemotherapy; T45.1X5A Adverse effect of antineoplastic and immunosuppressive drugs, initial encounter
CPT/HCPCS: 85025; 96361; 96367; 96375; 96413; J1200; J2405; J7040; J9047

== ENCOUNTER 2020-04-30 06:13 | Outpatient (CLI) | payer MEDICARE, SELFPAY ==
[2020-04-30] MEDS: sodium chloride 0.9% 500 ML 999 ML IV (08:23)
[2020-04-30] MEDS: palonosetron 0.25 mg/5 mL SDV IV (08:30)
[2020-04-30] MEDS: diphenhydrAMINE 50 mg/mL SDV 1mL (08:40)
[2020-04-30] MEDS: diphenhydrAMINE 50 mg/mL SDV 1mL IV (08:40)
[2020-04-30] MEDS: sodium chloride 0.9% (100 ml) 100 ML 75 ML (08:40)
== END 2020-04-30 06:14 | disposition home or self-care (01) ==
LOC: ONCMED 06:14
PROVIDERS: PCP Internal Medicine; Visit Provider Internal Medicine Medical Oncology
DX: Z51.11 Encounter for antineoplastic chemotherapy (principal); C90.00 Multiple myeloma not having achieved remission; D47.2 Monoclonal gammopathy; D70.1 Agranulocytosis secondary to cancer chemotherapy; T45.1X5A Adverse effect of antineoplastic and immunosuppressive drugs, initial encounter
CPT/HCPCS: 96361; 96367; 96375; 96413; J1200; J2469; J7040; J9047

== ENCOUNTER 2020-05-12 06:09 | Outpatient (CLI) | payer MEDICARE, SELFPAY ==
[2020-05-12 09:14] LABS: Basophils % 0.2 %; Eosinophils % 0.5 %; Hematocrit 36.5 % (37.0-47.0); Hemoglobin 11.6 g/dL (11.5-15.3); Lymphocytes # 0.7 10^3/uL (0.8-4.8); Lymphocytes % 17.4 %; Mean Corpuscular HGB Conc 31.8 g/dL (30.0-36.0); Mean Corpuscular Hemoglobin 32.9 pg (28.0-34.0); Mean Corpuscular Volume 103.4 fL (81-99); Mean Platelet Volume 9.7 fL (7.4-10.4); Monocytes # 0.1 10^3/uL (0.2-0.9); Monocytes % 1.2 %; Neutrophils # 3.36 10^3/uL (1.8-7.7); Neutrophils % 80.2 %; Nucleated Red Blood Cells % 0 %; Platelet Count 307 10^3/cmm (130-400); Red Blood Count 3.53 10^6/uL (4.1-5.3); Red Cell Distribution Width 14.3 % (12.1-15.1); White Blood Count 4.2 10^3/uL (4.0-10.0)
[2020-05-12 09:33] LABS: Alanine Aminotransferase 15 U/L (0-33); Alkaline Phosphatase 85 IU/L (35-105); Anion Gap 16.3 (5-19); Aspartate Amino Transferase 17 U/L (0-32); Blood Urea Nitrogen 11 mg/dL (8-23); Carbon Dioxide 22 mmol/L (22-29); Chloride 101 mmol/L (98-107); Globulin 4.4 g/dL (1.3-4.6); Glomerular Filtration Rate 70.9 mL/min (90-130); Glucose 120 mg/dL (65-115); Lactate Dehydrogenase 214 U/L (135-214); Osmolality Calculated 281 mOsm/kg (285-295); Potassium 4.3 mmol/L (3.5-5.1); Sodium 135 mmol/L (136-145); Total Bilirubin 0.3 mg/dL (0.15-1.2); Total Protein 8.4 g/dL (6.6-8.7)
[2020-05-12] MEDS: acetaminophen 325 mg Tablet 650 MG PO (10:40)
[2020-05-12] MEDS: ondansetron 2 mg/ML SDV 2 mL 8 MG IV (10:50)
[2020-05-12] MEDS: sodium chloride 0.9% 500 ML 999 ML IV (10:50)
[2020-05-12] MEDS: diphenhydrAMINE 50 mg/mL SDV 1mL IV (11:01)
[2020-05-12] MEDS: sodium chloride 0.9% (100 ml) 100 ML 400 ML (11:01)
[2020-05-12 14:44] LABS: Immunoglobulin IGG 2696 mg/dL (700-1600)
[2020-05-12 15:14] LABS: Immunoglobulin IGA < 50 mg/dL (70-400); Immunoglobulin IGM 8 mg/dL (40-230)
--- NOTE | 2020-05-13 07:03 | ONC FU_ITS ---
[facility] Patient Note Patient: Karely Armenta Unit #: [id number]: 1950 Dictated By: Say CastilloDate of Visit: May 12, 2020 Onc MED Follow-Up/Prog Note Chief Complaint: Myeloma. History of Present Illness: Mrs Armenta is a 69 year-old woman with IgG kappa myeloma. She was found to be moderately anemic in December 2016 when she was admitted to the hospital with pneumonia. She also reported having had an illness the preceding summer, in October or November, which may have been tick fever, but that was never confirmed. Her follow-up laboratory studies with Dr. Garcia on 05/03/2017 included CBC showing hemoglobin 11.9 g with white blood cell count 5100 and platelet count 155,000. Her sedimentation rate was significantly elevated at 94 mm/hour. The chem profile showed normal renal function with BUN 13 and creatinine 0.96 mg/dL. Calcium was normal at 9.0 mg/dL. The total protein was elevated at 9.0 g/dL with albumin 4.0 g/dL and calculated serum globulin elevated at 5.0 g/dL. Protein electrophoresis showed a monoclonal protein quantitating at 2.5 g/dL. Immunofixation showed an IgG kappa paraprotein measuring 2.87 g/dL. Hepatitis screen was nonreactive to hepatitis C, hepatitis Bs antigen, and hepatitis B core total Ab referral. The hepatitis B surface antibody was < 3.10. LDH was normal at 149 U/L. The beta-2 microglobulin was slightly elevated at 0.420 mg/dL. Dr Sanchez had seen her initially on 05/11/2017. Repeat protein electrophoresis with immunofixation prior to that visit, from 05/09/2017, showed IgG kappa monoclonal protein quantitating at 2.87 g/dL. The kappa light chain was elevated at 177.96 mg/L with lambda light chain 1.73 mg/L and kappa/lambda ratio elevated at 102. On her further evaluation there was no monoclonal protein detected in a 24-hour urine specimen. Skeletal survey on 05/11/2017 showed cervical and lumbar spondylosis and bilateral hip joint osteoarthritic changes. There was no radiographic evidence of multiple myeloma. She underwent bone marrow aspiration/biopsy on 05/17/2017. The cellularity was estimated at 70% with 32% plasma cells. Iron stores were noted to be absent. The FISH panel for myeloma showed gain of chromosome 1q, deletions of RB 1 and LAMP1, and gain of IG. The standard chromosome analysis was normal. Overall, the findings were consistent with plasma cell neoplasm/myeloma. Staging PET/CT on 06/03/2017 showed a single FDG avid osteolytic site in the T1 vertebral body which was felt to possibly represent multiple myeloma. She then had further evaluation with MRI of the spine on 07/12/2017. There were significant degenerative changes in the cervical spine which included moderate central canal stenosis at C4-C5, C5-C6, and C7 as well as bilateral nerve root encroachment at C5, C6, and C7. There were also degenerative changes in the lumbar spine with interval STIR signal abnormality and enhancement of T10-L5 spinous processes suggesting possible myelomatous changes. The thoracic spine showed subtle diffuse signal and enhancement abnormality involving the T1 vertebral body. In correlation with the PET/CT findings, this was felt to be suspicious for neoplastic process, including multiple myeloma. There were no actual lytic lesions identified. She had further laboratory evaluation on 07/26/2017. Her CBC at that point showed hemoglobin down slightly to 10.1 g with white blood cell count 3700 and platelet count 122,000. Chem profile showed borderline renal function with BUN 12 and creatinine 1.1 mg/dL and calculated GFR 49 mm/hour. Repeat protein electrophoresis showed M protein increased to 3.22 g/dL compared to 2.87 g/dL in April. Her quantitative immunoglobulin levels showed elevated IgG at 3800 mg/dL and IgA low at less than 8.00 and IgM low at 5.50 mg/dL. Her serum iron studies showed normal transferrin saturation at 30.9%, but ferritin was low at 14.4 ng/mL. B12 level was in low-normal range at 288 pg/mL. She is seen for a follow-up visit on 08/14/2017. At that point she did agree to begin treatment with Velcade/Revlimid/dexamethasone. She began her cycle 1 of Velcade/Revlimid/dexamethasone on 09/11/2017. At that time she also began prophylaxis with Bactrim and acyclovir. When she returned for her day 4 Velcade injection, she had developed a significant skin eruption, and she was advised to stop both the Revlimid and the Bactrim. At day 8 she had a reduction in the Velcade dosage to 1.0 mg/m???, as her neutrophil count had dropped to 800 and she also was experiencing some neuropathy. The Revlimid remained on hold. As of 10/17/2017 the ANC was still only 700, and I did opt to delay her 2nd cycle of treatment. Her repeat protein electrophoresis from 10/09/2017 did show a decline in her M protein to 2.71 g/dL compared to a pretreatment level of 3.73 g/dL. She eventually continued with cycle 2 on 10/23/2017 with the Velcade dosage reduced at 1.0 mg/m???. The Revlimid dosage was reduced to 10 mg. Despite the reductions, her cycle 3 was delayed again due to neutropenia. Her repeat protein electrophoresis on 11/20/2017 showed essentially stable M protein level at 2.77 g/dL. She continued with cycle 3 on 12/04/2017. Her neutrophil count at that point was back up to 1900. With that cycle she stopped Revlimid after 1 day and her day for Velcade was held due to multiple symptoms including sore throat, swelling in her throat, hoarseness, and cough. She did receive day 8 Velcade, but her day 11 treatment also was held. She eventually did continue with a 4th cycle of treatment on 12/26/2017 and with the 5th cycle on a 01/16/2018, but with both of those she showed up for only 3 of her scheduled Velcade injections. As of cycle 5 her M protein was still basically stable at 2.82 g/dL. Beginning with cycle 6 her treatment was changed to a 28 day cycle with Velcade administered on days 1, 8, and 15, with Revlimid administered on a 21/28 day schedule, and with dexamethasone administered weekly. With that change her compliance improved. As of 03/05/2018 she began her 7th cycle of treatment. At that point her serum protein electrophoresis had shown a significant decline in the M protein, to 1.41 g/dL. With continued treatment there was further decline in the M protein. As of 05/08/2018 on day 8 of cycle 9 it had decreased to 0.84 g/dL. However, at day 1 of cycle 10 on 05/30/2018 it increased slightly to 1.11 g/dL. At cycle 10 day 22 on 06/19/2018 it had stabilized at 1.09 g/dL. Restaging PET/CT on 06/23/2018 showed the T1 lesion to be weakly FDG positive and unchanged from the previous study in May 2017. Given those findings, it was opted to put her further treatment on hold. Her repeat protein electrophoresis on 07/20/2018 showed an increase in the M protein to 1.4 g/dL. The free light chain assay showed elevated kappa light chain at 83.8 mg/L with lambda light chain 2.9 mg/L and elevated kappa/lambda ratio at 28.90. With those findings, she was advised to continue to second line treatment. She had indicated that she preferred not to be on any type of IV infusion. As such, I recommend a trial of therapy with Revlimid/ixazomib/dexamethasone. She began cycle 1 of Revlimid/ixazomib/dexamethasone on 08/29/2018. Due to her previous toxicities with Revlimid, it was initiated at a reduced dosage of 10 mg daily on a 21/28 day schedule with ixazomib dosed at 4 mg on days 18 and 15 and the dexamethasone dose at 40 mg weekly. She was able to tolerate it with acceptable toxicity, and she continued with cycle 2 on 09/26/2018 and with cycle 3 on 10/25/2018. Her repeat protein electrophoresis in September did show some decline in the M protein, to 1.0 g/dL. It then stabilized, and she continued her same treatment. As of 01/24/2019 the protein electrophoresis showed her quantitative M protein at 1.1 g/dL. The free light chain assay showed kappa light chain elevated at 105.1 mg/L, lambda light chain 7.0 mg/L, and elevated kappa/lambda ratio at 15.01. She continued treatment with Revlimid/ixazomib/dexamethasone. As of 04/22/2019 her protein electrophoresis showed M protein stable at 0.9 g/dL, but her free light chain assay continued to show elevated kappa/lambda ratio at 15.37. Her quantitative immunoglobulin levels showed IgG 1165 mg/dL with IgA low at 10 mg/dL and IgM low at 17 mg/dL. Her CBC showed stable hemoglobin at 12 g, but her ANC was low at 700. As of 05/06/2019 her treatment was put on hold due to persistent neutropenia. Her 24 urine protein electrophoresis showed no monoclonal protein. Her other medical illnesses include hypertension, hyperlipidemia, coronary artery disease, hypothyroidism, GERD, fibromyalgia, degenerative arthritis, and anxiety/depression. Her surgical/procedural history includes coronary angioplasty/stent placement 2015. She has arthroscopic left knee surgery, and she also has had surgery on the right shoulder. She has history of smoking for 25 years, from 1-3 packs of cigarettes daily. She quit smoking in 1989. She has had just occasional alcohol use. She is [employer], and she will not accept blood products. INTERIM HISTORY: In May 2019 she had taken a trip to [place], and while she was there she became very ill and required treatment for pneumonia. She returned here for a follow-up visit in June. Her repeat protein electrophoresis on 07/02/2019 showed increase in the M protein to 2.0 g/dL. Her free light chain assay showed increased kappa light chain to 142 mg/L with lambda light chain 2.9 mg/L, and elevated kappa/lambda ratio at 49.38. Restaging PET/CT on 07/13/2019 showed stable findings in the T1 lesion with FDG activity no greater than that of marrow background, consistent with successfully treated disease. There was no evidence of any new lesions. However, with the significant increase in the M protein and in the kappa free light chain, she was recommended to proceed with third line treatment with daratumumab in combination with carfilzomib and dexamethasone. She underwent placement of Port-A-Cath venous access device in preparation for that treatment. Her baseline echocardiogram showed normal left ventricular function with ejection fraction estimated at 60%. She returned to begin cycle 1 of daratumumab/carfilzomib/dexamethasone on 08/12/2019. The initial infusion of daratumumab was administered in divided doses over 2 days. She tolerated the treatment well. However, her day 8 treatment was complicated by nausea and profuse diaphoresis, which she attributed to the daratumumab. She was able to complete her day 9 carfilzomib treatment. Her day 15/16 treatment was withheld due to a drop in her white blood cell count to 2000 with her ANC at 1000. She did not have fever or other complications. She was given her week 3 daratumumab the following week, but I did opt to split the dosage over 2 days. She tolerated it with no adverse effects. She continued with cycle 2 on 09/11/2019 with the carfilzomib administered at a reduced dosage and with the daratumumab administered in a split dosage. She continued to have anemia, moderately severe neutropenia, and mild thrombocytopenia, but she was able to tolerate the treatment with acceptable toxicity. As of 10/02/2019 the M protein had decreased to 1.1 g/dL. She proceeded with cycle 3 on 10/09/2019. At cycle 3-day 15, on 10/22/2019, her carfilzomib was omitted due to neutropenia, ANC 1400. She did receive her 8th weekly infusion of daratumumab, administered as a single infusion. At that time she also was complaining increased shortness of breath, and a CT pulmonary angiogram showed small filling defects in both the right and left secondary pulmonary arteries consistent with thromboembolic disease. Altered perfusion was seen in those areas. As it did appear to be clinically significant, she was started on anticoagulation with apixaban. She continued with her 4th cycle of treatment on 11/06/2019 with the daratumumab administered at 2-week intervals. At that point her M protein was stable at 1.2 g/dL. The serum free light chain assay, though, did show a decline in her free kappa light chain from 143.7 to 100.6 mg/L. She began cycle 5 on 12/04/2019. Her M protein was down slightly, to 1.1 g/dL. As of 01/01/2020 it had further declined to 0.9 g/dL. She continued with her 6th cycle of treatment, and she then continued with cycle 7 on 02/19/2020 and with cycle 8 on 03/18/2020. Ms. Alvarado is here today for follow-up. She is due for cycle 10 daratumumab/carfilzomib. She states overall she is doing well. She recently had some dental work done on her upper teeth. She had full extraction. She is awaiting dental implants which she state will start in May. She has no mouth sores, sore throat or difficulty swallowing. She denies any fever or chills. She states her biggest concern is that she has noticed that with the carfilzomib she is not having shortness of breath. She states it starts after the second treatment at the beginning of the cycle and is persistent with day 8 and 9 and 15 and 16. She states that she just feels like she cannot get enough air . She states she gets lightheaded and a little dizzy. She states she feels really tired after taking the carfilzomib and this last for 2 to 3 days. She states about the time she starts feeling better it is time to come back in. She states other than that she is doing well. She denies diarrhea or constipation. She denies any neuropathy. She is excited as she is planning on building a house in [place] near her sister. This will put her closer to her parents but not next-door. Her ECOG is 1. Past Medical History: Anxiety/depression Chronic back pain Chronic migraine Coronary artery disease Fibromyalgia Gastroesophageal reflux disease Hypertension Hypothyroidism Past Surgical History: Arthroscopic left knee surgery Left breast biopsy for benign disease Removal of cyst from the right breast Right shoulder surgery Influenza Vaccine in 2019 Coronary angioplasty/stent placement in 2015 Colonoscopy in 2011 Allergies: Codeine Sulfate, LevoFLOXacin, and Vicodin. Medications: amLODIPine Besylate 1 Tablet (of 5 mg) Oral daily Body/Hair/Skin/Nails 2 Capsule Oral daily Vcrrevhtbl-RKAB-Vfiu-Cod 1 (29-021-95-30 mg) Capsule Oral four times a day PRN Cholecalciferol 2 (1000 Units) Capsule Oral daily Curcumin 95 1 (500 mg) Capsule Oral daily PRN Cymbalta 1 (60 mg) Capsule Delayed Release Particles Oral daily Eliquis 1 Tablet (of 5 mg) Oral b.i.d. Furosemide 1 Tablet (of 20 mg) Oral daily PRN Levothyroxine Sodium 1 (50 mcg) Tablet Oral daily LORazepam 0.5 - 1 (1 mg) Tablet Oral q 4 hours PRN Metoprolol Tartrate 1 Tablet (of 50 mg) Oral daily Multivitamin Adult 1 Tablet Oral daily Nitroglycerin 1 (400 mcg/spray) Aerosol, solution Translingual PRN OxyCODONE HCl 1 (30 mg) Tablet Oral 5x/d PRN Pantoprazole Sodium 1 Tablet (of 40 mg) Tablet, enteric coated Oral daily Plavix 1 (75 mg) Tablet Oral daily Potassium Chloride ER 1 Tablet (of 10 meq) Tablet, controlled release Oral daily PRN Pravastatin Sodium 1 (40 mg) Tablet Oral daily Prochlorperazine Maleate 1 (10 mg) Tablet Oral four times a day PRN QUEtiapine Fumarate 2 Tablet (of 25 mg) Oral at bedtime Soma 1 (350 mg) Tablet Oral four times a day PRN Family History: Ms. Armenta's mother is alive: heart disease. Ms. Armenta's father is alive. Mother still living at age 87 and she is in relatively good health. She doesn't know about her biologic father. A brother is quadriplegic from a motor vehicle accident. A sister has bipolar disease. A maternal aunt had bladder cancer and another maternal aunt had ovarian cancer. Social History: Ms. Armenta is and she is retired. Ms. Armenta quit smoking 28 years ago but had smoked for 12 years. She drinks occasionally. Ms. Armenta reports the following support systems: lives alone, supportive family/friends willing to assist with needs, and adequate transportation available for expected visits. Her diet consists of regular meals. She indicates her activity level as: occasional exercise. She has a history of smoking for 25 years, in the range of 1-3 packs of cigarettes daily. She quit smoking in 1989. She has had just occasional alcohol use. Review Of Symptoms: Constitutional Denies fevers, chills, night sweats. She has had fatigue-no better but no worse than last visit. Allergic/Immunologic No reactions. Eyes Denies significant visual changes. No diplopia. No amaurosis. ENMT Denies changes in hearing, mouth sores, difficulty or changes in swallowing ability, and/or sinus drainage. Hematologic/Lymphatic Denies easy bleeding. The patient denies any tender or palpable lymph nodes-intermittent bruising but stable. Respiratory shortness of breath after Kyprolis-see above. Cardiovascular Denies anginal chest pain, palpitations or orthopnea. Gastrointestinal Denies nausea, vomiting, diarrhea, GI bleeding, or constipation. Denies change in bowel habits and/or stool color, no heartburn or early satiety. Some intermittent bloating/abdominal gas. Genitourinary (F) No hematuria, hesitancy, incontinence, vaginal bleeding, discharge or other problems with urination. Musculoskeletal Denies joint swelling or redness. No decreased range of motion. States she is having joint pain off and on, but chronic and stable. Chronic lower back pain. Integumentary Denies chronic rashes, inflammation, ulcerations or skin changes. Neurologic Denies headache, blurred vision, and no areas of focal weakness or numbness. Normal gait. No sensory problems. Psychiatric Denies insomnia, depression, danelle or mood swings. Vital Signs: Performed on May 12, 2020 09:36 Height - 66.00 in Weight - 154.4 lbs (LOW) BSA - 1.79 sq.m BMI - 24.92 Temperature - 98.6 F Pulse - 68 /min Respiration - 16 /min BP - 151/69 mm(hg) (HIGH) O2 Sat - 98 % Pain - 5,1 - No physically strenuous activity, but ambulatory and able to carry out light or sedentary work (e.g. office work, light house work). (ECOG) Physical Examination: Constitutional Alert, oriented, no acute distress. Skin pink, warm and dry. Head Normocephalic; atraumatic. Eyes Conjunctivae and sclerae are clear and without icterus. Pupils are reactive and equal. Neck Supple without masses or thyromegaly. No jugular venous distension. Hematologic/Lymphatic No petechiae or purpura. Respiratory Lungs are clear to auscultation without rhonchi or wheezing. Cardiovascular Regular rate and rhythm of heart without murmurs,clicks, gallops or rubs. Chest left chest wall venous access device insertion site unremarkable. Abdomen Non-tender, non-distended, no masses, ascites. Back/Spine Non-tender to palpation. Extremities No visible deformities, no cyanosis, clubbing or edema. Musculoskeletal No tenderness or swelling, normal range of motion without obvious weakness. Integumentary No rashes or lesions. Neurologic No sensory or motor deficits, normal cerebellar function, normal gait. Psychiatric Alert and oriented times three. Coherent speech. Verbalizes understanding of our discussions today. Laboratory:Test performed on May 12, 2020 08:45 LDH (Total) 214 U/L Sodium 135 mmol/L Potassium 4.3 mmol/L Chloride 101 mmol/L CO2 22 mmol/L Anion Gap 16.3 BUN 11 mg/dL Creatinine 0.8 mg/dL Cr Clearance (Est) 78.6200 mL/min eGFR 70.9 mL/min Glucose 120 mg/dL Osmolality - Calculated 281 mOsm/kg Calcium 9.0 mg/dL Protein, Total 8.4 g/dL Albumin 4.0 g/dL Globulin 4.4 g/dL Bilirubin, Total 0.3 mg/dL ALT (SGPT) 15 U/L AST (SGOT) 17 U/L Alkaline Phosphatase 85 IU/L WBC 4.2 10 3/uL RBC 3.53 10 6/uL HGB 11.6 g/dL HCT 36.5 % MCV 103.4 fL MCH 32.9 pg MCHC 31.8 g/dL RDW 14.3 % Platelet Count 307 10 3/cmm MPV 9.7 fL Neutrophils 3.36 10 3/uL Lymphocytes 0.7 10 3/uL Monocytes 0.1 10 3/uL Eosinophils 0.0 10 3/uL Basophils 0.0 10 3/uL Neutrophil % 80.2 % Lymphocyte % 17.4 % Monocyte % 1.2 % Eosinophil % 0.5 % Basophils % 0.2 % NRBC % 0 % IgG 2696 mg/dL IgA < 50 mg/dL IgM 8 mg/dL Test performed on Apr 15, 2020 08:47 [place] Free Light Chains 109.4 mg/L Lambda Free Light Chains < 1.5 mg/L [place]/Lambda Free Ratio > 72.93 Test performed on Dec 04, 2019 09:14 TSH 2.06 uIU/mL Impression: 1. Patient with IgG kappa myeloma. Bone marrow aspiration/biopsy on 05/17/2017 showed 32% plasma cells, consistent with myeloma. The FISH panel showed gain of chromosome 1q, deletions of RB 1 and LAMP1, and gain of IG. Her baseline M protein was 2.87 g/dL. She was mildly anemic and she had significantly elevated sedimentation rate. She had normal renal function and negative 24-hour urine protein electrophoresis. Skeletal survey showed no lytic bone involvement. PET/CT and MRI both showed findings suspicious for involvement of the T1 vertebral body. She does not appear to be overtly symptomatic with it. 2. Her bone marrow also showed absent storage iron. Her other medical illnesses include: 3. Hypertension. 4. Hyperlipidemia. 5. Coronary artery disease with angioplasty/stent placement in February 2016. 6. Hypothyroidism. 7. GERD. 8. Degenerative arthritis/degenerative disease of the spine. 9. Fibromyalgia. 10. Anxiety/depression. She has been undergoing treatment with Velcade/Revlimid/dexamethasone, cycle 1 beginning on 09/11/2017. Overall, her treatment was very suboptimal due in part to multiple side effects which included skin eruption and neutropenia, among others. Compliance also had been somewhat of an issue. Beginning with her 6th cycle of treatment, on 02/05/2018, her treatment was changed to a 28 day schedule with Velcade administered at a reduced dosage on days 1, 8, and 15, with Revlimid administered at 10 mg daily on a 21/28 day schedule, and with dexamethasone administered weekly. She began cycle 7 on 03/05/2018. Her serum protein electrophoresis at that point did show a significant decrease in the M protein, to 1.41 g/dL. She then continued treatment at the same dosages, but intermittently she still had moderately severe neutropenia. She had otherwise been tolerating the treatment well. She began her 10th cycle of treatment on 05/30/2018. At that point her M protein had stabilized at just over 1 g/dL. She appeared stable clinically, and restaging PET/CT showed only mild FDG activity in the T1 lesion. There were no other areas of FDG uptake, and there was no significant change compared to the prior study in May 2017. As on 07/20/2018 her repeat protein electrophoresis showed a significant increase in the M protein to 1.4 g/dL, and her free light chain assay showed an increase in the kappa/lambda ratio to28.90. With those findings, she was advised to proceed with second line treatment. She indicated that she preferred not to have any IV medication. As such, on 08/29/2018 she began a trial of therapy with Revlimid/ixazomib/dexamethasone. Due to her previous toxicities, the Revlimid was initiated at a reduced dosage of 10 mg daily on a 21/28 day schedule. As of October 2018, following 3 cycles of treatment, her M protein had stabilized at 1.0 g/dL. She continued her same treatment, and as of 01/24/2019 her M protein and her free light chain had remained stable. Her clinical status at that time also appeared stable, and she continued treatment with Revlimid, ixazomib, and dexamethasone at the same dosages. As of 04/22/2019 her protein electrophoresis showed M protein stable at 0.9 g/dL, but her free light chain assay continued to show elevated kappa/lambda ratio at 15.37. Her quantitative immunoglobulin levels showed IgG 1165 mg/dL with IgA low at 10 mg/dL and IgM low at 17 mg/dL. Her CBC showed stable hemoglobin at 12 g, but her ANC was low at 700. As of 05/06/2019 her treatment was put on hold due to persistent neutropenia. Her 24 hour urine protein electrophoresis showed no monoclonal protein. As of her follow-up visit in June 2019 there was evidence of disease progression with significant increase in her M protein and and her kappa free light chain. Her restaging PET/CT showed stable findings at the T1 vertebral body lesion and no evidence of any new lesions. With those findings, she began third line treatment with daratumumab/carfilzomib/dexamethasone on 08/12/2019. She has now completed 1 cycle of treatment. She tolerated her day 1/day 2 treatments very well. She developed mulitple side effects following her day 8 treatment, which she attibuted to the daratumumab. She was able to complete her day 9 carfilzomib treatment. Her day 15/16 treatment was withheld due to neutropenia, ANC 1000. She completed her week 3 daratumumab the following week, but with the dosage split over 2 days. She tolerated it without adverse effects. On 09/11/2019 continued with cycle 2 of daratumumab/carfilzomib/dexamethasone with the carfilzomib administered at a reduced dosage and with the daratumumab administered in a split dosage. She continued to have anemia, moderately severe neutropenia, and mild thrombocytopenia, but she was able to tolerate the treatment with acceptable toxicity. She has had some evidence of response, though not dramatic, with her repeat protein electrophoresis on 10/02/2019 showing decline in the M protein, to 1.1 g/dL. She proceeded with cycle 3 on 10/09/2019. Her blood counts at that point had remained adequate, and her clinical status appeared stable. At cycle 3-day 15 her carfilzomib was omitted due to neutropenia, ANC 1400. She did receive her 8th weekly daratumumab infusion, administered as a single dose. At that time she complained of increased shortness of breath, and she was found on pulmonary angiogram to have bilateral pulmonary emboli. She began on anticoagulation with apixaban. She continued to have moderately severe neutropenia, but she otherwise appeared stable clinically. She continued with her 4th cycle of treatment on 11/06/2019 with the daratumumab administered at 2-week intervals. At that point her M protein was stable at 1.2 g/dL. It was uncertain to what extent that may have reflected residual disease or monoclonal protein associated with the daratumumab. The serum free light chain assay had shown a decline in her free kappa light chain from 143.7 to 100.6 mg/L. She continued with cycle 5 on 12/04/2019. During followup she has continued to tolerate her treatment with acceptable toxicity. There has been a gradual decline in the M protein and in the serum free kappa light chain, so that she now just has a relatively small residual M protein. It is uncertain to what extent that may reflect residual myeloma versus the daratumumab. She has continued to have mild to moderately severe neutropenia, but her blood counts have remained adequate and her overall clinical status remains stable. Plan: 1. Proceed with cycle 10 daratumumab but we will hold the carfilzomib due to significant shortness of breath after administration of the carfilzomib. She may continue with the dexamethasone. 2. Labs from 05/12/2020 were reviewed in detail and discussed with Ms. Alvarado and a copy was given to her. WBC 4.2, hemoglobin 11.6, platelets 307,000 ANC is 3400 potassium 4.3 creatinine 0.8 LFTs are normal her LDH is 214. 3. We will plan to repeat her CTA with contrast. Was concerned given her myeloma but her creatinine is normal and her last CTA diagnosing her pulmonary emboli was given with contrast and she tolerated it well. 4. We will tentatively plan to see her back in 1 month for cycle 11 daratumumab. She will need CBC CMP SPEP with CLARY, free light chain assay and follow-up TSH for that visit. 5. We will call her with the results of the CTA once that is obtained and make any further follow-up or treatment decisions at that time. 6. Mrs. Alvarado was instructed to contact us in the interim should questions or problems arise. Signed By: Say Castillo-REGINA, AOAKI Sanchez MD <<Signature on File>>
[2020-05-13 10:43] LABS: PROTEIN, TOTAL 7.8 g/dL (6.1-8.1)
[2020-05-13 13:18] LABS: ABNORMAL PROTEIN BAND 1 2.1 g/dL (NONE DETECTED); ALBUMIN 3.8 g/dL (3.8-4.8); ALPHA 1 GLOBULIN 0.4 g/dL (0.2-0.3); ALPHA 2 GLOBULIN 0.8 g/dL (0.5-0.9); BETA 1 GLOBULIN 0.5 g/dL (0.4-0.6); BETA 2 GLOBULIN 0.2 g/dL (0.2-0.5); GAMMA GLOBULIN 2.1 g/dL (0.8-1.7)
[2020-05-13 15:48] LABS: KAPPA LIGHT CHAIN, FREE, SERUM 197.8 mg/L (3.3-19.4); LAMBDA LIGHT CHAIN, FREE, SERU <1.5 mg/L (5.7-26.3)
== END 2020-05-12 06:10 | disposition home or self-care (01) ==
LOC: ONCMED 06:11
PROVIDERS: PCP Internal Medicine; Visit Provider Nurse Practitioner
DX: Z51.12 Encounter for antineoplastic immunotherapy (principal); C90.00 Multiple myeloma not having achieved remission; D70.1 Agranulocytosis secondary to cancer chemotherapy; T45.1X5D Adverse effect of antineoplastic and immunosuppressive drugs, subsequent encounter; I10 Essential (primary) hypertension; E78.5 Hyperlipidemia, unspecified; I25.10 Atherosclerotic heart disease of native coronary artery without angina pectoris; Z95.5 Presence of coronary angioplasty implant and graft; E03.9 Hypothyroidism, unspecified; K21.9 Gastro-esophageal reflux disease without esophagitis; M47.9 Spondylosis, unspecified; M79.7 Fibromyalgia; F41.8 Other specified anxiety disorders; Z79.899 Other long term (current) drug therapy; Z87.891 Personal history of nicotine dependence; Z86.711 Personal history of pulmonary embolism; Z79.01 Long term (current) use of anticoagulants
CPT/HCPCS: 80053; 82784; 83615; 83883; 84155; 84165; 85025; 96367; 96375; 96413; 96415; 99214; J1200; J2405; J7040; J9145

== ENCOUNTER 2020-05-20 10:22 | Outpatient (CLI) | payer MEDICARE, SELFPAY ==
--- NOTE | 2020-05-20 10:32 | CT_ITS ---
WS: [id number] Comparison 10/22/2019. Exam: CT angio chest PE protcl [id number] Date/Time of Exam: 05/20/2020 10:33 AM Reason For Exam: SHORTNESS OF BREATH, PULMONARY EMBOLI, F/U MULTIPLE MYELOMA DLP: 701.[address] scans at [facility] use at least one of these dose optimization techniques: automat ed exposure control; mA and/or kV adjustment per patient size (includes targeted exams where dose is matched to clinical indication); or iterative reconstruction. Compared to prior study 10/22/2019. No sign of acute pulmonary emboli. The thoracic aorta is normal in caliber. The airway is patent. No mediastinal or hilar lymphadenopathy. No axillary lymphadenopathy. The lungs are clear and fully expa nded. No pleural or pericardial effusion noted. A left-sided port extends into the SVC. A lytic defec t is again noted in the T1 vertebral body which has been described previously. This is thought to rep resent either a bone hemangioma or lytic defect. This appears stable. CT sections the upper abdomen w ere unremarkable. CT/CT angio chest PE protcl [id number] IMPRESSION: 1. No sign of acute PE. 2. No sign of pulmonary mass, infiltrate or lymphadenopathy. 3. Lytic defect in the T1 vertebral body which may represent a bone hemangioma or lesion secondary to multiple myeloma. It is stable in appearance since the p rior CT scan and has also been described on the previous MRI of the C-spine.
[2020-05-20] MEDS: iohexol 350 mg/mL 100 mL Btl IV (10:52)
== END 2020-05-20 10:23 | disposition home or self-care (01) ==
LOC: RADWPI 10:27
PROVIDERS: PCP Internal Medicine; Visit Provider Nurse Practitioner
DX: R06.02 Shortness of breath (principal); I26.99 Other pulmonary embolism without acute cor pulmonale
CPT/HCPCS: 71275; Q9967

== ENCOUNTER 2020-06-15 14:31 | Outpatient (CLI) | payer MEDICARE, SELFPAY ==
[2020-06-15 15:17] LABS: Eosinophils % 0.7 %; Hematocrit 34.3 % (37.0-47.0); Hemoglobin 10.5 g/dL (11.5-15.3); Lymphocytes # 1.9 10^3/uL (0.8-4.8); Lymphocytes % 43.9 %; Mean Corpuscular HGB Conc 30.6 g/dL (30.0-36.0); Mean Corpuscular Hemoglobin 30.7 pg (28.0-34.0); Mean Corpuscular Volume 100.3 fL (81-99); Mean Platelet Volume 9.5 fL (7.4-10.4); Monocytes # 0.3 10^3/uL (0.2-0.9); Monocytes % 5.7 %; Neutrophils # 2.16 10^3/uL (1.8-7.7); Neutrophils % 49.7 %; Nucleated Red Blood Cells % 0 %; Platelet Count 176 10^3/cmm (130-400); Red Blood Count 3.42 10^6/uL (4.1-5.3); Red Cell Distribution Width 13.2 % (12.1-15.1); White Blood Count 4.4 10^3/uL (4.0-10.0)
[2020-06-15 15:45] LABS: Alanine Aminotransferase 17 U/L (0-33); Albumin Level 3.5 g/dL (3.5-5.2); Alkaline Phosphatase 63 IU/L (35-105); Anion Gap 8.9 (5-19); Aspartate Amino Transferase 13 U/L (0-32); Blood Urea Nitrogen 11 mg/dL (8-23); Calcium 8.7 mg/dL (8.5-10.5); Carbon Dioxide 31 mmol/L (22-29); Chloride 101 mmol/L (98-107); Globulin 3.9 g/dL (1.3-4.6); Glomerular Filtration Rate 70.9 mL/min (90-130); Glucose 120 mg/dL (65-115); Immunoglobulin IGA 50 mg/dL (70-400); Immunoglobulin IGG 2319 mg/dL (700-1600); Immunoglobulin IGM 25 mg/dL (40-230); Osmolality Calculated 285 mOsm/kg (285-295); Potassium 3.9 mmol/L (3.5-5.1); Sodium 137 mmol/L (136-145); Total Bilirubin 0.2 mg/dL (0.15-1.2); Total Protein 7.4 g/dL (6.6-8.7)
[2020-06-16 08:59] LABS: PROTEIN, TOTAL 7.1 g/dL (6.1-8.1)
[2020-06-16 12:34] LABS: KAPPA LIGHT CHAIN, FREE, SERUM 180.7 mg/L (3.3-19.4); LAMBDA LIGHT CHAIN, FREE, SERU <1.5 mg/L (5.7-26.3)
[2020-06-16 13:34] LABS: ABNORMAL PROTEIN BAND 1 1.9 g/dL (NONE DETECTED); ALBUMIN 3.4 g/dL (3.8-4.8); ALPHA 1 GLOBULIN 0.3 g/dL (0.2-0.3); ALPHA 2 GLOBULIN 0.8 g/dL (0.5-0.9); BETA 1 GLOBULIN 0.4 g/dL (0.4-0.6); BETA 2 GLOBULIN 0.2 g/dL (0.2-0.5)
== END 2020-06-15 14:32 | disposition home or self-care (01) ==
PROVIDERS: PCP Internal Medicine; Visit Provider Internal Medicine Medical Oncology
DX: C90.00 Multiple myeloma not having achieved remission (principal); D47.2 Monoclonal gammopathy
CPT/HCPCS: 36591; 80053; 82784; 83883; 84155; 84165; 85025

== ENCOUNTER 2020-06-23 06:04 | Outpatient (CLI) | payer MEDICARE, SELFPAY ==
--- NOTE | 2020-06-23 18:11 | ONC FU_ITS ---
Dr. Sanchez Patient Follow-Up Note Patient: Karely Armenta Unit #: [id number]: [id number] Dicatated By: Sean Sanchez M.D.Date of Visit:Jun 23, 2020 Onc Med Follow-up/Prog Note Chief Complaint: Myeloma. History of Present Illness: This is a 70 year-old woman with IgG kappa myeloma. She was found to be moderately anemic in December 2016 when she was admitted to the hospital with pneumonia. She also reported having had an illness the preceding summer, in October or November, which may have been tick fever, but that was never confirmed. Her follow-up laboratory studies with Dr. Garcia on 05/03/2017 included CBC showing hemoglobin 11.9 g with white blood cell count 5100 and platelet count 155,000. Her sedimentation rate was significantly elevated at 94 mm/hour. The chem profile showed normal renal function with BUN 13 and creatinine 0.96 mg/dL. Calcium was normal at 9.0 mg/dL. Protein electrophoresis showed a monoclonal protein quantitating at 2.5 g/dL. Immunofixation showed an IgG kappa paraprotein measuring 2.87 g/dL. Hepatits screen was nonreactive to hepatitis C, hepatitis Bs antigen, and hepatitis B core total Ab referral. The hepatitis B surface antibody was < 3.10. LDH was normal at 149 U/L. The beta-2 microglobulin was slightly elevated at 0.420 mg/dL. I had seen her initially on 05/11/2017. Repeat protein electrophoresis with immunofixation prior to that visit, from 05/09/2017, showed IgG kappa monoclonal protein quantitating at 2.87 g/dL. The kappa light chain was elevated at 177.96 mg/L with lambda light chain 1.73 mg/L and kappa/lambda ratio elevated at 102. On her further evaluation there was no monoclonal protein detected in a 24-hour urine specimen. Skeletal survey on 05/11/2017 showed cervical and lumbar spondylosis and bilateral hip joint osteoarthritic changes. There was no radiographic evidence of multiple myeloma. She underwent bone marrow aspiration/biopsy on 05/17/2017. The cellularity was estimated at 70% with 32% plasma cells. Iron stores were noted to be absent. The FISH panel for myeloma showed gain of chromosome 1q, deletions of RB 1 and LAMP1, and gain of IG. The standard chromosome analysis was normal. Overall, the findings were consistent with plasma cell neoplasm/myeloma. Staging PET/CT on 06/03/2017 showed a single FDG avid osteolytic site in the T1 vertebral body which was felt to possibly represent multiple myeloma. She then had further evaluation with MRI of the spine on 07/12/2017. There were significant degenerative changes in the cervical spine which included moderate central canal stenosis at C4-C5, C5-C6, and C7 as well as bilateral nerve root encroachment at C5, C6, and C7. There were also degenerative changes in the lumbar spine with interval STIR signal abnormality and enhancement of T10-L5 spinous processes suggesting possible myelomatous changes. The thoracic spine showed subtle diffuse signal and enhancement abnormality involving the T1 vertebral body. In correlation with the PET/CT findings, this was felt to be suspicious for neoplastic process, including multiple myeloma. There were no actual lytic lesions identified. She began treatment with Velcade/Revlimid/dexamethasone in August 2017. She tolerated it rather poorly, and she did require treatment interruptions and dose reductions, but she idd show evidence for response. As of April 2018, during her 9th cycle, her M protein had declined to 0.84 g/dL. She continued with cycle 10 in May 2018. However, a repeat protein electrophoresis on 07/20/2018 showed an increase in the M protein to 1.4 g/dL. The free light chain assay showed and increase in the free kappa light chain to 83.8 mg/L with elevated kappa/lambda ratio at 28.90. In August 2018 she began second line treatment with Revlimid/ixazomib/dexamethasone. Due to her previous toxicities with Revlimid, it was initiated at a reduced dosage of 10 mg daily on a 21/ day schedule with ixazomib dosed at 4 mg on days 18 and 15 and the dexamethasone dose at 40 mg weekly. She was able to tolerate it with acceptable toxicity. As of 05/06/2019 her treatment was put on hold due to persistent neutropenia. In May 2019 she had taken a trip to [place], and while she was there she became very ill and required treatment for pneumonia. She returned here for a follow-up visit in June. Her repeat protein electrophoresis on 07/02/2019 showed increase in the M protein to 2.0 g/dL. Her free light chain assay showed increased kappa light chain to 142 mg/L with lambda light chain 2.9 mg/L, and elevated kappa/lambda ratio at 49.38. Restaging PET/CT on 07/13/2019 showed stable findings in the T1 lesion with FDG activity no greater than that of marrow background, consistent with successfully treated disease. There was no evidence of any new lesions. However, with the significant increase in the M protein and in the kappa free light chain, she was recommended to proceed with 3rd line treatment with daratumumab in combination with carfilzomib and dexamethasone. Her baseline echocardiogram showed normal left ventricular function with ejection fraction estimated at 60%. She returned to begin cycle 1 of daratumumab/carfilzomib/dexamethasone on 08/12/2019. The initial infusion of daratumumab was administered in divided doses over 2 days. She tolerated the treatment well. However, her day 8 treatment was complicated by nausea and profuse diaphoresis, which she attributed to the daratumumab. She was able to complete her day 9 carfilzomib treatment. Her day 15/16 treatment was withheld due to a drop in her white blood cell count to 2000 with her ANC at 1000. She did not have fever or other complications. She was given her week 3 daratumumab the following week, but I did opt to split the dosage over 2 days. She tolerated it with no adverse effects. She continued with cycle 2 on 09/11/2019 with the carfilzomib administered at a reduced dosage and with the daratumumab administered in a split dosage. She continued to have anemia, moderately severe neutropenia, and mild thrombocytopenia, but she was able to tolerate the treatment with acceptable toxicity. As of 10/02/2019 the M protein had decreased to 1.1 g/dL. She proceeded with cycle 3 on 10/09/2019. At cycle 3-day 15, on 10/22/2019, her carfilzomib was omitted due to neutropenia, ANC 1400. She did receive her 8th weekly infusion of daratumumab, administered as a single infusion. At that time she also was complaining increased shortness of breath, and a CT pulmonary angiogram showed small filling defects in both the right and left secondary pulmonary arteries consistent with thromboembolic disease. Altered perfusion was seen in those areas. As it did appear to be clinically significant, she was started on anticoagulation with apixaban. She continued with her 4th cycle of treatment on 11/06/2019 with the daratumumab administered at 2-week intervals. At that point her M protein was stable at 1.2 g/dL. The serum free light chain assay, though, did show a decline in her free kappa light chain from 143.7 to 100.6 mg/L. She began cycle 5 on 12/04/2019. Her M protein was down slightly, to 1.1 g/dL. As of 01/01/2020 it had further declined to 0.9 g/dL. She continued with her 6th cycle of treatment, and she then continued with cycle 7 on 02/19/2020 and with cycle 8 on 03/18/2020. At that point her M protein has increased to 1.5 g/dL. In March she underwent a dental extraction/implant procedure. The procedure was complicated by persistent defect in her left upper gum/maxillary bone. She continued with cycle 9 of daratumumab/carfilzomib/dexamethasone on 04/15/2020. She then received a scheduled infusion of daratumumab on 05/12/2020. Her repeat protein electrophoresis at that time showed further increase in the M protein to 2.1 g/dL. Her treatment was put on hold. Her other medical illnesses include hypertension, hyperlipidemia, coronary artery disease, hypothyroidism, GERD, fibromyalgia, degenerative arthritis, and anxiety/depression. Her surgical/procedural history includes coronary angioplasty/stent placement 2015. She has arthroscopic left knee surgery, and she also has had surgery on the right shoulder. She has history of smoking for 25 years, from 1-3 packs of cigarettes daily. She quit smoking in 1989. She has had just occasional alcohol use. She is Jain, and she will not accept blood products. INTERIM HISTORY: She is seen for a follow-up visit. She is continuing to have issues related to the dental extraction procedure, apparently with a residual defect in her left maxillary bone. She has had further antibiotic therapy. She is scheduled to see an oral surgeon next week. Her myeloma therapy has remained on hold. She has actually been feeling really good. She has good energy. Her ECOG score is 0. She has good appetite. She has no fever or night sweats. She does complain that her mouth hurts. She has no sinus symptoms, and she has not had sore throat or difficulty swallowing. She has no shortness of breath, cough, or chest pain. She has had a little bit of acid reflux with the antibiotic and she also has had some diarrhea. She has no complaints. She currently is not having any significant joint or bone pain. She has no focal neurologic symptoms. Medications: amLODIPine Besylate 1 Tablet (of 5 mg) Oral daily, Body/Hair/Skin/Nails 2 Capsule Oral daily, Umzkxmpaku-EEGD-Mlsk-Cod 1 (60-922-77-30 mg) Capsule Oral four times a day PRN, Cholecalciferol 2 (1000 Units) Capsule Oral daily, Curcumin 95 1 (500 mg) Capsule Oral daily PRN, Cymbalta 1 (60 mg) Capsule Delayed Release Particles Oral daily, Eliquis 1 Tablet (of 2.5 mg) Oral b.i.d., Furosemide 1 Tablet (of 20 mg) Oral daily PRN, Levothyroxine Sodium 1 (50 mcg) Tablet Oral daily, LORazepam 0.5 - 1 (1 mg) Tablet Oral q 4 hours PRN, Metoprolol Tartrate 1 Tablet (of 50 mg) Oral daily, Multivitamin Adult 1 Tablet Oral daily, Nitroglycerin 1 (400 mcg/spray) Aerosol, solution Translingual PRN, OxyCODONE HCl 1 (30 mg) Tablet Oral 5x/d PRN, Pantoprazole Sodium 1 Tablet (of 40 mg) Tablet, enteric coated Oral daily, Potassium Chloride ER 1 Tablet (of 10 meq) Tablet, controlled release Oral daily PRN, Pravastatin Sodium 1 (40 mg) Tablet Oral daily, Prochlorperazine Maleate 1 (10 mg) Tablet Oral four times a day PRN, QUEtiapine Fumarate 2 Tablet (of 25 mg) Oral at bedtime, Soma 1 (350 mg) Tablet Oral four times a day PRN Allergies: Codeine Sulfate, LevoFLOXacin, and Vicodin. Vital Signs: Performed on Jun 23, 2020 08:43 Height - 66.00 in Weight - 160.6 lbs (HIGH) BSA - 1.82 sq.m BMI - 25.92 Temperature - 97.6 F (LOW) Pulse - 17 /min (LOW) Respiration - 87 /min (HIGH) BP - 151/75 mm(hg) (HIGH) O2 Sat - 97 % Pain - 5 Physical Examination: Constitutional - She looks pretty good generally, Eyes - Sclerae nonicteric. Conjunctivae clear, ENMT - There are sutures in place in the upper gum on the left side. No other lesions noted in the oral cavity, Hematologic/Lymphatic - No cervical, clavicular, or axillary adenopathy, Respiratory - Lungs are clear with good air movement bilaterally, Cardiovascular - Heart rhythm is regular. There is no murmur, gallop, or rub noted, Abdomen - Soft. Liver and spleen are not enlarged. There is no abdominal mass or ascites noted and there is no inguinal adenopathy, Extremities - No edema, Neurologic - No focal neurologic deficits noted. Lab/Imaging: Test performed on Jun 15, 2020 14:52 Sodium 137 mmol/L Potassium 3.9 mmol/L Chloride 101 mmol/L CO2 31 mmol/L Anion Gap 8.9 BUN 11 mg/dL Creatinine 0.8 mg/dL Cr Clearance (Est) 78.6200 mL/min eGFR 70.9 mL/min Glucose 120 mg/dL Osmolality - Calculated 285 mOsm/kg Calcium 8.7 mg/dL Protein, Total 7.4 g/dL Albumin 3.5 g/dL Globulin 3.9 g/dL Bilirubin, Total 0.2 mg/dL ALT (SGPT) 17 U/L AST (SGOT) 13 U/L Alkaline Phosphatase 63 IU/L WBC 4.4 10 3/uL RBC 3.42 10 6/uL HGB 10.5 g/dL HCT 34.3 % MCV 100.3 fL MCH 30.7 pg MCHC 30.6 g/dL RDW 13.2 % Platelet Count 176 10 3/cmm MPV 9.5 fL Neutrophils 2.16 10 3/uL Lymphocytes 1.9 10 3/uL Monocytes 0.3 10 3/uL Eosinophils 0.0 10 3/uL Basophils 0.0 10 3/uL Neutrophil % 49.7 % Lymphocyte % 43.9 % Monocyte % 5.7 % Eosinophil % 0.7 % Basophils % 0.0 % NRBC % 0 % IgG 2319 mg/dL [place] Free Light Chains 180.7 mg/L Lambda Free Light Chains < 1.5 mg/L IgA 50 mg/dL [place]/Lambda Free Ratio > 120.47 IgM 25 mg/dL Problem List: 1. IgG kappa myeloma. Bone marrow aspiration/biopsy on 05/17/2017 showed 32% plasma cells, consistent with myeloma. The FISH panel showed gain of chromosome 1q, deletions of RB 1 and LAMP1, and gain of IG. Her baseline M protein was 2.87 g/dL. She was mildly anemic and she had significantly elevated sedimentation rate. She had normal renal function and negative 24-hour urine protein electrophoresis. Skeletal survey showed no lytic bone involvement. PET/CT and MRI both showed findings suspicious for involvement of the T1 vertebral body. She was not overtly symptomatic with it. 2. Pulmonary emboli diagnosed by CT pulmonary angiogram in October 2019. She began on anticoagulation with apixaban. 3. Hypertension. 4. Hyperlipidemia. 5. Coronary artery disease with angioplasty/stent placement in February 2016. 6. Hypothyroidism. 7. GERD. 8. Degenerative arthritis/degenerative disease of the spine. 9. Fibromyalgia. 10. Anxiety/depression. Problems Addressed with this Encounter and Plan: 1. IgG kappa myeloma, initially diagnosed in April 2017.. Her FISH panel showed gain of chromosome 1q, deletions of RB 1 and LAMP1, and gain of IG. Her baseline M protein was 2.87 g/dL. She began treatment with Velcade/Revlimid/dexamethasone in August 2017. She had poor tolerance, particularly for the Revlimid. As of May 2018 she began her 10th cycle, though with significant treatment delays and dose reductions. As of continued as of July 2018 there was a significant increase in her M protein to 1.4 g/dL and with an increase in her kappa/lambda ratio to 28.90, consistent with disease progression. restaging PET/CT showed only mild FDG activity in the T1 lesion. There were no other areas of FDG uptake, and there was no significant change compared to the prior study in May 2017. She had some response to first-line treatment with Revlimid/Velcade/dexamethasone from August 2017 through May 2018. She tolerated it poorly and she required treatment interruptions and dose reductions. She also showed response to 2nd line therapy with Revlimid/ixazomib/dexamethasone from July 2018 through April 2019. It was put on hold at that point due to persistent neutropenia. She began 3rd line treatment with daratumumab/carfilzomib/dexamethasone in July 2019. She again tolerated it rather poorly, requiring dose attenuations. Her treatment was complicated by pulmonary emboli for which she remains on anticoagulation with apixaban. She did have evidence of response by M protein. However, since February 2020 there has been a gradual increase in her M protein level and in her kappa/lambda ratio, so that she is again showing disease progression. She will now have to go onto 4th line treatment regimen, most likely pomalidomide/dexamethasone, but initiation of treatment will be deferred pending resolution of her dental issues. 2. 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 She is now scheduled to see an oral surgeon. It should be noted that her myeloma treatment did not include Zometa or other bisphosphonate therapy. 3. Pulmonary emboli diagnosed by CT pulmonary angiogram in October 2019. She remains on anticoagulation with apixaban. Signed By: Sean Sanchez M.D. <<Signature on File>>
== END 2020-06-23 06:05 | disposition home or self-care (01) ==
LOC: ONCMED 06:06
PROVIDERS: PCP Internal Medicine; Visit Provider Internal Medicine Medical Oncology
DX: C90.00 Multiple myeloma not having achieved remission (principal); I26.99 Other pulmonary embolism without acute cor pulmonale; Z79.01 Long term (current) use of anticoagulants; Y84.8 Other medical procedures as the cause of abnormal reaction of the patient, or of later complication, without mention of misadventure at the time of the procedure; Z79.899 Other long term (current) drug therapy
CPT/HCPCS: 99214

== ENCOUNTER 2020-07-20 08:13 | Outpatient (CLI) | payer MEDICARE, SELFPAY ==
--- NOTE | 2020-07-26 12:46 | ONC FU_ITS ---
[facility] Patient Note Patient: Karely Armenta Unit #: [id number]: 1950 Dictated By: Say CastilloDate of Visit: Jul 20, 2020 Onc MED Follow-Up/Prog Note Chief Complaint: Myeloma. History of Present Illness: Ms Armenta is a 70 year-old woman with IgG kappa myeloma. She was found to be moderately anemic in December 2016 when she was admitted to the hospital with pneumonia. She also reported having had an illness the preceding summer, in October or November, which may have been tick fever, but that was never confirmed. Her follow-up laboratory studies with Dr. Garcia on 05/03/2017 included CBC showing hemoglobin 11.9 g with white blood cell count 5100 and platelet count 155,000. Her sedimentation rate was significantly elevated at 94 mm/hour. The chem profile showed normal renal function with BUN 13 and creatinine 0.96 mg/dL. Calcium was normal at 9.0 mg/dL. Protein electrophoresis showed a monoclonal protein quantitating at 2.5 g/dL. Immunofixation showed an IgG kappa paraprotein measuring 2.87 g/dL. Hepatits screen was nonreactive to hepatitis C, hepatitis Bs antigen, and hepatitis B core total Ab referral. The hepatitis B surface antibody was < 3.10. LDH was normal at 149 U/L. The beta-2 microglobulin was slightly elevated at 0.420 mg/dL. Dr Sanchez had seen her initially on 05/11/2017. Repeat protein electrophoresis with immunofixation prior to that visit, from 05/09/2017, showed IgG kappa monoclonal protein quantitating at 2.87 g/dL. The kappa light chain was elevated at 177.96 mg/L with lambda light chain 1.73 mg/L and kappa/lambda ratio elevated at 102. On her further evaluation there was no monoclonal protein detected in a 24-hour urine specimen. Skeletal survey on 05/11/2017 showed cervical and lumbar spondylosis and bilateral hip joint osteoarthritic changes. There was no radiographic evidence of multiple myeloma. She underwent bone marrow aspiration/biopsy on 05/17/2017. The cellularity was estimated at 70% with 32% plasma cells. Iron stores were noted to be absent. The FISH panel for myeloma showed gain of chromosome 1q, deletions of RB 1 and LAMP1, and gain of IG. The standard chromosome analysis was normal. Overall, the findings were consistent with plasma cell neoplasm/myeloma. Staging PET/CT on 06/03/2017 showed a single FDG avid osteolytic site in the T1 vertebral body which was felt to possibly represent multiple myeloma. She then had further evaluation with MRI of the spine on 07/12/2017. There were significant degenerative changes in the cervical spine which included moderate central canal stenosis at C4-C5, C5-C6, and C7 as well as bilateral nerve root encroachment at C5, C6, and C7. There were also degenerative changes in the lumbar spine with interval STIR signal abnormality and enhancement of T10-L5 spinous processes suggesting possible myelomatous changes. The thoracic spine showed subtle diffuse signal and enhancement abnormality involving the T1 vertebral body. In correlation with the PET/CT findings, this was felt to be suspicious for neoplastic process, including multiple myeloma. There were no actual lytic lesions identified. She began treatment with Velcade/Revlimid/dexamethasone in August 2017. She tolerated it rather poorly, and she did require treatment interruptions and dose reductions, but she idd show evidence for response. As of April 2018, during her 9th cycle, her M protein had declined to 0.84 g/dL. She continued with cycle 10 in May 2018. However, a repeat protein electrophoresis on 07/20/2018 showed an increase in the M protein to 1.4 g/dL. The free light chain assay showed and increase in the free kappa light chain to 83.8 mg/L with elevated kappa/lambda ratio at 28.90. In August 2018 she began second line treatment with Revlimid/ixazomib/dexamethasone. Due to her previous toxicities with Revlimid, it was initiated at a reduced dosage of 10 mg daily on a 21/28 day schedule with ixazomib dosed at 4 mg on days 18 and 15 and the dexamethasone dose at 40 mg weekly. She was able to tolerate it with acceptable toxicity. As of 05/06/2019 her treatment was put on hold due to persistent neutropenia. In May 2019 she had taken a trip to [place], and while she was there she became very ill and required treatment for pneumonia. She returned here for a follow-up visit in June. Her repeat protein electrophoresis on 07/02/2019 showed increase in the M protein to 2.0 g/dL. Her free light chain assay showed increased kappa light chain to 142 mg/L with lambda light chain 2.9 mg/L, and elevated kappa/lambda ratio at 49.38. Restaging PET/CT on 07/13/2019 showed stable findings in the T1 lesion with FDG activity no greater than that of marrow background, consistent with successfully treated disease. There was no evidence of any new lesions. However, with the significant increase in the M protein and in the kappa free light chain, she was recommended to proceed with 3rd line treatment with daratumumab in combination with carfilzomib and dexamethasone. Her baseline echocardiogram showed normal left ventricular function with ejection fraction estimated at 60%. She returned to begin cycle 1 of daratumumab/carfilzomib/dexamethasone on 08/12/2019. The initial infusion of daratumumab was administered in divided doses over 2 days. She tolerated the treatment well. However, her day 8 treatment was complicated by nausea and profuse diaphoresis, which she attributed to the daratumumab. She was able to complete her day 9 carfilzomib treatment. Her day 15/16 treatment was withheld due to a drop in her white blood cell count to 2000 with her ANC at 1000. She did not have fever or other complications. She was given her week 3 daratumumab the following week, but I did opt to split the dosage over 2 days. She tolerated it with no adverse effects. She continued with cycle 2 on 09/11/2019 with the carfilzomib administered at a reduced dosage and with the daratumumab administered in a split dosage. She continued to have anemia, moderately severe neutropenia, and mild thrombocytopenia, but she was able to tolerate the treatment with acceptable toxicity. As of 10/02/2019 the M protein had decreased to 1.1 g/dL. She proceeded with cycle 3 on 10/09/2019. At cycle 3-day 15, on 10/22/2019, her carfilzomib was omitted due to neutropenia, ANC 1400. She did receive her 8th weekly infusion of daratumumab, administered as a single infusion. At that time she also was complaining increased shortness of breath, and a CT pulmonary angiogram showed small filling defects in both the right and left secondary pulmonary arteries consistent with thromboembolic disease. Altered perfusion was seen in those areas. As it did appear to be clinically significant, she was started on anticoagulation with apixaban. She continued with her 4th cycle of treatment on 11/06/2019 with the daratumumab administered at 2-week intervals. At that point her M protein was stable at 1.2 g/dL. The serum free light chain assay, though, did show a decline in her free kappa light chain from 143.7 to 100.6 mg/L. She began cycle 5 on 12/04/2019. Her M protein was down slightly, to 1.1 g/dL. As of 01/01/2020 it had further declined to 0.9 g/dL. She continued with her 6th cycle of treatment, and she then continued with cycle 7 on 02/19/2020 and with cycle 8 on 03/18/2020. At that point her M protein has increased to 1.5 g/dL. In March she underwent a dental extraction/implant procedure. The procedure was complicated by persistent defect in her left upper gum/maxillary bone. She continued with cycle 9 of daratumumab/carfilzomib/dexamethasone on 04/15/2020. She then received a scheduled infusion of daratumumab on 05/12/2020. Her repeat protein electrophoresis at that time showed further increase in the M protein to 2.1 g/dL. Her treatment was put on hold. Her other medical illnesses include hypertension, hyperlipidemia, coronary artery disease, hypothyroidism, GERD, fibromyalgia, degenerative arthritis, and anxiety/depression. Her surgical/procedural history includes coronary angioplasty/stent placement 2015. She has arthroscopic left knee surgery, and she also has had surgery on the right shoulder. She has history of smoking for 25 years, from 1-3 packs of cigarettes daily. She quit smoking in 1989. She has had just occasional alcohol use. She is Faith, and she will not accept blood products. INTERIM HISTORY: Ms Armenta is here today for followup. She is due to resume chemotherapy today with a new treatment plan. Elotuzumab 2 mg/kg days1, 8. 15, and 22 with pomalidomide 2 mg daily days 1 through 21 and off 7 days. She states she has clearance from her oral surgeon to go and start chemotherapy. She states she continues to have one area that he has not completed he states it is healed well enough for her to resume her chemotherapy. Her kappa light chain analysis on June 15, 2020 was reported at 180.7. Her abnormal protein on SPEP from June 15, 2020 was reported at 1.9. In April 2020 it was 2.1 and an December 2019 it was 0.1 and 0.9. She has no new concerns today. She reports that she received her first [place] Covid vaccine last July 17 at [facility]. She reports she tolerated it well. She states today she just feels kind of achy all over but denies any fever or chills. She states she has 1 area open in her gum where the tooth was but again her oral surgeon states that it is healing well. She just has not been back to see him for placement of the implant. She denies any new concerns today. Her ECOG is 1. Past Medical History: Anxiety/depression Chronic back pain Chronic migraine Coronary artery disease Fibromyalgia Gastroesophageal reflux disease Hypertension Hypothyroidism Past Surgical History: Arthroscopic left knee surgery Left breast biopsy for benign disease Removal of cyst from the right breast Right shoulder surgery Influenza Vaccine in 2019 Coronary angioplasty/stent placement in 2015 Colonoscopy in 2011 Allergies: Codeine Sulfate, LevoFLOXacin, and Vicodin. Medications: amLODIPine Besylate 1 Tablet (of 5 mg) Oral daily Amoxicillin-Pot Clavulanate 1 Tablet (of 875-125 mg) Oral daily for 10 days Body/Hair/Skin/Nails 2 Capsule Oral daily Zwztqximxj-OYHB-Rxbw-Cod 1 (89-929-87-30 mg) Capsule Oral four times a day PRN Qkpbiksgya-UNTF-Jczcbiys 1 Capsule (of 50-325-40 mg) Oral daily PRN Cholecalciferol 2 (1000 Units) Capsule Oral daily Curcumin 95 1 (500 mg) Capsule Oral daily PRN Cymbalta 1 (60 mg) Capsule Delayed Release Particles Oral daily Eliquis 1 Tablet (of 2.5 mg) Oral b.i.d. Flagyl 1 Tablet (of 500 mg) Oral daily Furosemide 1 Tablet (of 20 mg) Oral daily PRN Levothyroxine Sodium 1 (50 mcg) Tablet Oral daily LORazepam 0.5 - 1 (1 mg) Tablet Oral q 4 hours PRN Metoprolol Tartrate 1 Tablet (of 50 mg) Oral daily Multivitamin Adult 1 Tablet Oral daily Nitroglycerin 1 (400 mcg/spray) Aerosol, solution Translingual PRN OxyCODONE HCl 1 (30 mg) Tablet Oral 5x/d PRN Pantoprazole Sodium 1 Tablet (of 40 mg) Tablet, enteric coated Oral daily Potassium Chloride ER 1 Tablet (of 10 meq) Tablet, controlled release Oral daily PRN Pravastatin Sodium 1 (40 mg) Tablet Oral daily Prochlorperazine Maleate 1 (10 mg) Tablet Oral four times a day PRN QUEtiapine Fumarate 2 Tablet (of 25 mg) Oral at bedtime Soma 1 (350 mg) Tablet Oral four times a day PRN Family History: Ms. Armenta's mother is alive: heart disease. Ms. Jacobss father is alive. Mother still living at age 87 and she is in relatively good health. She doesn't know about her biologic father. A brother is quadriplegic from a motor vehicle accident. A sister has bipolar disease. A maternal aunt had bladder cancer and another maternal aunt had ovarian cancer. Social History: Ms. Armenta is and she is retired. Ms. Armenta quit smoking 28 years ago but had smoked for 12 years. She drinks occasionally. Ms. Armenta reports the following support systems: lives alone, supportive family/friends willing to assist with needs, and adequate transportation available for expected visits. Her diet consists of regular meals. She indicates her activity level as: occasional exercise. She has a history of smoking for 25 years, in the range of 1-3 packs of cigarettes daily. She quit smoking in 1989. She has had just occasional alcohol use. Review Of Symptoms: Constitutional Denies fevers, chills, night sweats. She has had fatigue-no better but no worse than last visit. Allergic/Immunologic No reactions. Eyes Denies significant visual changes. No diplopia. No amaurosis. ENMT Denies changes in hearing, mouth sores, difficulty or changes in swallowing ability, and/or sinus drainage. Hematologic/Lymphatic Denies easy bleeding. The patient denies any tender or palpable lymph nodes-intermittent bruising but stable. Respiratory Denies dyspnea on exertion, chest pain, cough or hemoptysis. Denies orthopnea. Cardiovascular Denies anginal chest pain, palpitations or orthopnea. Gastrointestinal Denies nausea, vomiting, diarrhea, GI bleeding, or constipation. Denies change in bowel habits and/or stool color, no heartburn or early satiety. Genitourinary (F) No hematuria, hesitancy, incontinence, vaginal bleeding, discharge or other problems with urination. Musculoskeletal Denies joint swelling or redness. No decreased range of motion. States she is having joint pain off and on, but chronic and stable. Chronic lower back pain. Integumentary Denies chronic rashes, inflammation, ulcerations or skin changes. Neurologic Denies headache, blurred vision, and no areas of focal weakness or numbness. Normal gait. No sensory problems. Psychiatric Denies insomnia, depression, danelle or mood swings. Vital Signs: Performed on Jul 20, 2020 10:29 Height - 66.00 in Weight - 166.6 lbs (HIGH) BSA - 1.85 sq.m BMI - 26.89 Temperature - 97.7 F (LOW) Pulse - 88 /min Respiration - 16 /min BP - 160/72 mm(hg) (HIGH) O2 Sat - 93 % (LOW) Pain - 8,1 - No physically strenuous activity, but ambulatory and able to carry out light or sedentary work (e.g. office work, light house work). (ECOG) Physical Examination: Constitutional Alert, oriented, no acute distress. Skin pink, warm and dry. Head Normocephalic; atraumatic. Eyes Conjunctivae and sclerae are clear and without icterus. Pupils are reactive and equal. Neck Supple without masses or thyromegaly. No jugular venous distension. Hematologic/Lymphatic No petechiae or purpura. Respiratory Lungs are clear to auscultation without rhonchi or wheezing. Cardiovascular Regular rate and rhythm of heart without murmurs,clicks, gallops or rubs. Chest left chest wall venous access device insertion site unremarkable. Abdomen Non-tender, non-distended, no masses, ascites. Back/Spine Non-tender to palpation. Extremities No visible deformities, no cyanosis, clubbing or edema. Musculoskeletal No tenderness or swelling, normal range of motion without obvious weakness. Integumentary No rashes or lesions. Neurologic No sensory or motor deficits, normal cerebellar function, normal gait. Psychiatric Alert and oriented times three. Coherent speech. Verbalizes understanding of our discussions today. Laboratory:Test performed on Jun 15, 2020 14:52 Sodium 137 mmol/L Potassium 3.9 mmol/L Chloride 101 mmol/L CO2 31 mmol/L Anion Gap 8.9 BUN 11 mg/dL Creatinine 0.8 mg/dL Cr Clearance (Est) 78.6200 mL/min eGFR 70.9 mL/min Glucose 120 mg/dL Osmolality - Calculated 285 mOsm/kg Calcium 8.7 mg/dL Protein, Total 7.4 g/dL Albumin 3.5 g/dL Globulin 3.9 g/dL Bilirubin, Total 0.2 mg/dL ALT (SGPT) 17 U/L AST (SGOT) 13 U/L Alkaline Phosphatase 63 IU/L WBC 4.4 10 3/uL RBC 3.42 10 6/uL HGB 10.5 g/dL HCT 34.3 % MCV 100.3 fL MCH 30.7 pg MCHC 30.6 g/dL RDW 13.2 % Platelet Count 176 10 3/cmm MPV 9.5 fL Neutrophils 2.16 10 3/uL Lymphocytes 1.9 10 3/uL Monocytes 0.3 10 3/uL Eosinophils 0.0 10 3/uL Basophils 0.0 10 3/uL Neutrophil % 49.7 % Lymphocyte % 43.9 % Monocyte % 5.7 % Eosinophil % 0.7 % Basophils % 0.0 % NRBC % 0 % IgG 2319 mg/dL [place] Free Light Chains 180.7 mg/L Lambda Free Light Chains < 1.5 mg/L IgA 50 mg/dL [place]/Lambda Free Ratio > 120.47 IgM 25 mg/dL Test performed on May 12, 2020 08:45 LDH (Total) 214 U/L Impression: 1. IgG kappa myeloma. Bone marrow aspiration/biopsy on 05/17/2017 showed 32% plasma cells, consistent with myeloma. The FISH panel showed gain of chromosome 1q, deletions of RB 1 and LAMP1, and gain of IG. Her baseline M protein was 2.87 g/dL. She was mildly anemic and she had significantly elevated sedimentation rate. She had normal renal function and negative 24-hour urine protein electrophoresis. Skeletal survey showed no lytic bone involvement. PET/CT and MRI both showed findings suspicious for involvement of the T1 vertebral body. She was not overtly symptomatic with it. 2. Pulmonary emboli diagnosed by CT pulmonary angiogram in October 2019. She began on anticoagulation with apixaban. 3. Hypertension. 4. Hyperlipidemia. 5. Coronary artery disease with angioplasty/stent placement in February 2016. 6. Hypothyroidism. 7. GERD. 8. Degenerative arthritis/degenerative disease of the spine. 9. Fibromyalgia. 10. Anxiety/depression. Plan: 1. IgG kappa myeloma, initially diagnosed in April 2017.. Her FISH panel showed gain of chromosome 1q, deletions of RB 1 and LAMP1, and gain of IG. Her baseline M protein was 2.87 g/dL. She began treatment with Velcade/Revlimid/dexamethasone in August 2017. She had poor tolerance, particularly for the Revlimid. As of May 2018 she began her 10th cycle, though with significant treatment delays and dose reductions. As of continued as of July 2018 there was a significant increase in her M protein to 1.4 g/dL and with an increase in her kappa/lambda ratio to 28.90, consistent with disease progression. restaging PET/CT showed only mild FDG activity in the T1 lesion. There were no other areas of FDG uptake, and there was no significant change compared to the prior study in May 2017. She had some response to first-line treatment with Revlimid/Velcade/dexamethasone from August 2017 through May 2018. She tolerated it poorly and she required treatment interruptions and dose reductions. She also showed response to 2nd line therapy with Revlimid/ixazomib/dexamethasone from July 2018 through April 2019. It was put on hold at that point due to persistent neutropenia. She began 3rd line treatment with daratumumab/carfilzomib/dexamethasone in July 2019. She again tolerated it rather poorly, requiring dose attenuations. Her treatment was complicated by pulmonary emboli for which she remains on anticoagulation with apixaban. She did have evidence of response by M protein. However, since February 2020 there has been a gradual increase in her M protein level and in her kappa/lambda ratio, so that she is again showing disease progression. She will now have to go onto 4th line treatment regimen. A. She will proceed with cycle 1 day 1 elotuzumab 10 mg/kg and pomalidomide 2 mg day 1 through 21. She will start this tomorrow as she did not take dexamethasone 3 to 24 hours prior to her treatment today. B. She did not have labs drawn today's therefore I have asked that she have a CBC, CMP QUIGS SPEP and free light chain assay drawn either today or tomorrow. C. She will have weekly CBC, CMP and follow-ups for following the weekly elotuzumab. D. The patient was informed of chemotherapy plan and specific drugs were discussed. We also discussed how chemotherapy works and identified common side effects including alopecia; myelosuppression-including neutropenia, anemia, thrombocytopenia; peripheral neuropathy; fatigue; nausea; diarrhea; constipation; bleeding or bruising; skin changes; mouth sores; drug hypersensitivity/allergic reactions or anaphylaxis and extravasation. They have also been informed how to contact the clinic with side effects or symptoms, including but not limited to fever greater than 100.4???, chills, sore throat, bleeding or bruising that is not explained or mouth sores, cough, nasal discharge, diarrhea, constipation, nausea and/or vomiting not relieved with medications on hand at home, as well as any other concern or question they may have. Our hours are 8:00 a.m. to 4:30 p.m. on Monday through and 8-12:00 on Monday. However, someone is millinery salesperson 24 hours per day and they have been advised to contact the [facility] at if it is after hours. We have also discussed potential long-term side effects of chemotherapy including secondary cancers, infertility, pulmonary complications, cardiac complications, and again peripheral neuropathy. We have discussed that they certainly need to let us know before taking any antioxidants or herbal or further dietary supplements, as we are unsure of how these agents react with chemotherapy and we request that they avoid these products for now. They were informed that it is okay to take multivitamins at normal doses. They verbally state that they understand to take all medications as directed by their healthcare provider unless otherwise indicated. They also verbalized understanding to leave the pressure dressing on the intravenous administration site for at least two hours after treatment. Instructions for oral care with baking soda and salt water rinses as well as a guide for use of [id number] medication were provided with the treatment plan. They have been given a written patient treatment plan, of which a copy is in the chart, as well as specific drug information. They have no questions and verbalized understanding and are willing to proceed with chemotherapy at this time. 2. 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 She is now scheduled to see an oral surgeon. It should be noted that her myeloma treatment did not include Zometa or other bisphosphonate therapy. 3. Pulmonary emboli diagnosed by CT pulmonary angiogram in October 2019. She remains on anticoagulation with apixaban. 4. Chronic pain due to fibromyalgia, degenerative arthritis/disc disease of the spine 8. Refill Soma to [facility] drug mail in pharmacy, refill lorazepam, and she needs a refil of oxycodone per Dr. Sanchez's written prescription. Signed By: Say Castillo-, AOCNP Sean Sanchez MD <<Signature on File>>
== END 2020-07-20 08:14 | disposition home or self-care (01) ==
LOC: ONCMED 08:16
PROVIDERS: PCP Internal Medicine; Visit Provider Nurse Practitioner
DX: C90.00 Multiple myeloma not having achieved remission (principal); D47.2 Monoclonal gammopathy; D70.1 Agranulocytosis secondary to cancer chemotherapy; T45.1X5A Adverse effect of antineoplastic and immunosuppressive drugs, initial encounter; F41.9 Anxiety disorder, unspecified; F32.9 Major depressive disorder, single episode, unspecified; G89.29 Other chronic pain; M54.6 Pain in thoracic spine; G43.919 Migraine, unspecified, intractable, without status migrainosus; I25.10 Atherosclerotic heart disease of native coronary artery without angina pectoris; M79.7 Fibromyalgia; K21.9 Gastro-esophageal reflux disease without esophagitis; I10 Essential (primary) hypertension; E03.9 Hypothyroidism, unspecified; E78.5 Hyperlipidemia, unspecified; I26.99 Other pulmonary embolism without acute cor pulmonale; Z79.01 Long term (current) use of anticoagulants; Z95.5 Presence of coronary angioplasty implant and graft; Z79.899 Other long term (current) drug therapy
CPT/HCPCS: 99215

== ENCOUNTER 2020-07-21 06:09 | Outpatient (CLI) | payer MEDICARE, SELFPAY ==
[2020-07-21] MEDS: famotidine 20 mg/2 mL INJ IVP (12:15)
[2020-07-21] MEDS: sodium chloride 0.9% 250 ML 75 ML IV (12:15)
[2020-07-21] MEDS: acetaminophen 325 mg Tablet 650 MG PO (12:15)
[2020-07-21] MEDS: diphenhydrAMINE 50 mg/mL SDV 1mL 25 MG IV (12:34)
[2020-07-21] MEDS: sodium chloride 0.9% (100 ml) 100 ML 400 ML (12:34)
[2020-07-21 12:38] LABS: Hematocrit 30.4 % (37.0-47.0); Hemoglobin 9.7 g/dL (11.5-15.3); Lymphocytes # 0.7 10^3/uL (0.8-4.8); Lymphocytes % 20.3 %; Mean Corpuscular HGB Conc 31.9 g/dL (30.0-36.0); Mean Corpuscular Hemoglobin 29.9 pg (28.0-34.0); Mean Corpuscular Volume 93.8 fL (81-99); Mean Platelet Volume 9.7 fL (7.4-10.4); Monocytes # 0.1 10^3/uL (0.2-0.9); Neutrophils % 77.4 %; Nucleated Red Blood Cells % 0 %; Platelet Count 184 10^3/cmm (130-400); Red Blood Count 3.24 10^6/uL (4.1-5.3); Red Cell Distribution Width 14.6 % (12.1-15.1); White Blood Count 3.5 10^3/uL (4.0-10.0)
[2020-07-21 12:58] LABS: Alanine Aminotransferase 9 U/L (0-33); Albumin Level 3.9 g/dL (3.5-5.2); Alkaline Phosphatase 91 IU/L (35-105); Anion Gap 12.3 (5-19); Aspartate Amino Transferase 15 U/L (0-32); Blood Urea Nitrogen 9 mg/dL (8-23); Calcium 9.1 mg/dL (8.5-10.5); Carbon Dioxide 27 mmol/L (22-29); Chloride 97 mmol/L (98-107); Globulin 4.7 g/dL (1.3-4.6); Glomerular Filtration Rate 98.8 mL/min (90-130); Glucose 116 mg/dL (65-115); Osmolality Calculated 274 mOsm/kg (285-295); Potassium 4.3 mmol/L (3.5-5.1); Sodium 132 mmol/L (136-145); Total Bilirubin 0.2 mg/dL (0.15-1.2); Total Protein 8.6 g/dL (6.6-8.7)
[2020-07-21 13:37] LABS: Immunoglobulin IGA 50 mg/dL (70-400); Immunoglobulin IGG 3448 mg/dL (700-1600); Immunoglobulin IGM 25 mg/dL (40-230)
[2020-07-22 09:44] LABS: PROTEIN, TOTAL 8.1 g/dL (6.1-8.1)
[2020-07-22 15:24] LABS: ABNORMAL PROTEIN BAND 1 2.5 g/dL (NONE DETECTED); ALBUMIN 3.7 g/dL (3.8-4.8); ALPHA 1 GLOBULIN 0.4 g/dL (0.2-0.3); ALPHA 2 GLOBULIN 0.8 g/dL (0.5-0.9); BETA 1 GLOBULIN 0.5 g/dL (0.4-0.6); BETA 2 GLOBULIN 0.2 g/dL (0.2-0.5); GAMMA GLOBULIN 2.6 g/dL (0.8-1.7); KAPPA LIGHT CHAIN, FREE, SERUM 190.5 mg/L (3.3-19.4); LAMBDA LIGHT CHAIN, FREE, SERU <1.5 mg/L (5.7-26.3)
== END 2020-07-21 06:10 | disposition home or self-care (01) ==
LOC: ONCMED 06:11
PROVIDERS: PCP Internal Medicine; Visit Provider Nurse Practitioner
DX: Z51.12 Encounter for antineoplastic immunotherapy (principal); C90.00 Multiple myeloma not having achieved remission; Z51.81 Encounter for therapeutic drug level monitoring; Z79.899 Other long term (current) drug therapy
CPT/HCPCS: 80053; 82784; 83883; 84155; 84165; 85025; 96367; 96375; 96413; 96415; J1100; J1200; J3490; J7050; J9176

== ENCOUNTER 2020-07-29 05:48 | Outpatient (CLI) | payer MEDICARE, SELFPAY ==
[2020-07-29 12:05] LABS: Basophils % 0.2 %; Hematocrit 33.3 % (37.0-47.0); Hemoglobin 10.7 g/dL (11.5-15.3); Lymphocytes # 0.6 10^3/uL (0.8-4.8); Lymphocytes % 11.4 %; Mean Corpuscular HGB Conc 32.1 g/dL (30.0-36.0); Mean Corpuscular Hemoglobin 30.1 pg (28.0-34.0); Mean Corpuscular Volume 93.8 fL (81-99); Mean Platelet Volume 10.4 fL (7.4-10.4); Monocytes # 0.1 10^3/uL (0.2-0.9); Monocytes % 1.6 %; Neutrophils # 4.85 10^3/uL (1.8-7.7); Neutrophils % 86.4 %; Nucleated Red Blood Cells % 0 %; Platelet Count 221 10^3/cmm (130-400); Red Blood Count 3.55 10^6/uL (4.1-5.3); Red Cell Distribution Width 14.8 % (12.1-15.1); White Blood Count 5.6 10^3/uL (4.0-10.0)
[2020-07-29 12:51] LABS: Alanine Aminotransferase 12 U/L (0-33); Albumin Level 3.9 g/dL (3.5-5.2); Alkaline Phosphatase 74 IU/L (35-105); Anion Gap 12.2 (5-19); Aspartate Amino Transferase 12 U/L (0-32); Blood Urea Nitrogen 14 mg/dL (8-23); Calcium 9.3 mg/dL (8.5-10.5); Carbon Dioxide 27 mmol/L (22-29); Chloride 101 mmol/L (98-107); Globulin 4.6 g/dL (1.3-4.6); Glomerular Filtration Rate 82.7 mL/min (90-130); Glucose 119 mg/dL (65-115); Osmolality Calculated 284 mOsm/kg (285-295); Potassium 4.2 mmol/L (3.5-5.1); Sodium 136 mmol/L (136-145); Total Bilirubin 0.3 mg/dL (0.15-1.2); Total Protein 8.5 g/dL (6.6-8.7)
[2020-07-29] MEDS: famotidine 20 mg/2 mL INJ IVP (13:55)
[2020-07-29] MEDS: sodium chloride 0.9% 250 ML IV (13:55)
[2020-07-29] MEDS: acetaminophen 325 mg Tablet 650 MG PO (13:58)
[2020-07-29] MEDS: diphenhydrAMINE 50 mg/mL SDV 1mL 25 MG IVP (13:58)
[2020-07-30 16:53] LABS: ABNORMAL PROTEIN BAND 1 2.3 g/dL (NONE DETECTED); ALBUMIN 3.8 g/dL (3.8-4.8); ALPHA 1 GLOBULIN 0.4 g/dL (0.2-0.3); ALPHA 2 GLOBULIN 0.8 g/dL (0.5-0.9); BETA 1 GLOBULIN 0.5 g/dL (0.4-0.6); BETA 2 GLOBULIN 0.2 g/dL (0.2-0.5); GAMMA GLOBULIN 2.4 g/dL (0.8-1.7)
--- NOTE | 2020-08-09 21:21 | ONC FU_ITS ---
[facility] Patient Note Patient: Karely Armenta Unit #: [id number]: 1950 Dictated By: Say CastilloDate of Visit: Jul 29, 2020 Onc MED Follow-Up/Prog Note Chief Complaint: Myeloma. History of Present Illness: Ms Armenta is a 70 year-old woman with IgG kappa myeloma. She was found to be moderately anemic in December 2016 when she was admitted to the hospital with pneumonia. She also reported having had an illness the preceding summer, in October or November, which may have been tick fever, but that was never confirmed. Her follow-up laboratory studies with Dr. Garcia on 05/03/2017 included CBC showing hemoglobin 11.9 g with white blood cell count 5100 and platelet count 155,000. Her sedimentation rate was significantly elevated at 94 mm/hour. The chem profile showed normal renal function with BUN 13 and creatinine 0.96 mg/dL. Calcium was normal at 9.0 mg/dL. Protein electrophoresis showed a monoclonal protein quantitating at 2.5 g/dL. Immunofixation showed an IgG kappa paraprotein measuring 2.87 g/dL. Hepatits screen was nonreactive to hepatitis C, hepatitis Bs antigen, and hepatitis B core total Ab referral. The hepatitis B surface antibody was < 3.10. LDH was normal at 149 U/L. The beta-2 microglobulin was slightly elevated at 0.420 mg/dL. Dr Sanchez had seen her initially on 05/11/2017. Repeat protein electrophoresis with immunofixation prior to that visit, from 05/09/2017, showed IgG kappa monoclonal protein quantitating at 2.87 g/dL. The kappa light chain was elevated at 177.96 mg/L with lambda light chain 1.73 mg/L and kappa/lambda ratio elevated at 102. On her further evaluation there was no monoclonal protein detected in a 24-hour urine specimen. Skeletal survey on 05/11/2017 showed cervical and lumbar spondylosis and bilateral hip joint osteoarthritic changes. There was no radiographic evidence of multiple myeloma. She underwent bone marrow aspiration/biopsy on 05/17/2017. The cellularity was estimated at 70% with 32% plasma cells. Iron stores were noted to be absent. The FISH panel for myeloma showed gain of chromosome 1q, deletions of RB 1 and LAMP1, and gain of IG. The standard chromosome analysis was normal. Overall, the findings were consistent with plasma cell neoplasm/myeloma. Staging PET/CT on 06/03/2017 showed a single FDG avid osteolytic site in the T1 vertebral body which was felt to possibly represent multiple myeloma. She then had further evaluation with MRI of the spine on 07/12/2017. There were significant degenerative changes in the cervical spine which included moderate central canal stenosis at C4-C5, C5-C6, and C7 as well as bilateral nerve root encroachment at C5, C6, and C7. There were also degenerative changes in the lumbar spine with interval STIR signal abnormality and enhancement of T10-L5 spinous processes suggesting possible myelomatous changes. The thoracic spine showed subtle diffuse signal and enhancement abnormality involving the T1 vertebral body. In correlation with the PET/CT findings, this was felt to be suspicious for neoplastic process, including multiple myeloma. There were no actual lytic lesions identified. She began treatment with Velcade/Revlimid/dexamethasone in August 2017. She tolerated it rather poorly, and she did require treatment interruptions and dose reductions, but she idd show evidence for response. As of April 2018, during her 9th cycle, her M protein had declined to 0.84 g/dL. She continued with cycle 10 in May 2018. However, a repeat protein electrophoresis on 07/20/2018 showed an increase in the M protein to 1.4 g/dL. The free light chain assay showed and increase in the free kappa light chain to 83.8 mg/L with elevated kappa/lambda ratio at 28.90. In August 2018 she began second line treatment with Revlimid/ixazomib/dexamethasone. Due to her previous toxicities with Revlimid, it was initiated at a reduced dosage of 10 mg daily on a 21/28 day schedule with ixazomib dosed at 4 mg on days 18 and 15 and the dexamethasone dose at 40 mg weekly. She was able to tolerate it with acceptable toxicity. As of 05/06/2019 her treatment was put on hold due to persistent neutropenia. In May 2019 she had taken a trip to [place], and while she was there she became very ill and required treatment for pneumonia. She returned here for a follow-up visit in June. Her repeat protein electrophoresis on 07/02/2019 showed increase in the M protein to 2.0 g/dL. Her free light chain assay showed increased kappa light chain to 142 mg/L with lambda light chain 2.9 mg/L, and elevated kappa/lambda ratio at 49.38. Restaging PET/CT on 07/13/2019 showed stable findings in the T1 lesion with FDG activity no greater than that of marrow background, consistent with successfully treated disease. There was no evidence of any new lesions. However, with the significant increase in the M protein and in the kappa free light chain, she was recommended to proceed with 3rd line treatment with daratumumab in combination with carfilzomib and dexamethasone. Her baseline echocardiogram showed normal left ventricular function with ejection fraction estimated at 60%. She returned to begin cycle 1 of daratumumab/carfilzomib/dexamethasone on 08/12/2019. The initial infusion of daratumumab was administered in divided doses over 2 days. She tolerated the treatment well. However, her day 8 treatment was complicated by nausea and profuse diaphoresis, which she attributed to the daratumumab. She was able to complete her day 9 carfilzomib treatment. Her day 15/16 treatment was withheld due to a drop in her white blood cell count to 2000 with her ANC at 1000. She did not have fever or other complications. She was given her week 3 daratumumab the following week, but I did opt to split the dosage over 2 days. She tolerated it with no adverse effects. She continued with cycle 2 on 09/11/2019 with the carfilzomib administered at a reduced dosage and with the daratumumab administered in a split dosage. She continued to have anemia, moderately severe neutropenia, and mild thrombocytopenia, but she was able to tolerate the treatment with acceptable toxicity. As of 10/02/2019 the M protein had decreased to 1.1 g/dL. She proceeded with cycle 3 on 10/09/2019. At cycle 3-day 15, on 10/22/2019, her carfilzomib was omitted due to neutropenia, ANC 1400. She did receive her 8th weekly infusion of daratumumab, administered as a single infusion. At that time she also was complaining increased shortness of breath, and a CT pulmonary angiogram showed small filling defects in both the right and left secondary pulmonary arteries consistent with thromboembolic disease. Altered perfusion was seen in those areas. As it did appear to be clinically significant, she was started on anticoagulation with apixaban. She continued with her 4th cycle of treatment on 11/06/2019 with the daratumumab administered at 2-week intervals. At that point her M protein was stable at 1.2 g/dL. The serum free light chain assay, though, did show a decline in her free kappa light chain from 143.7 to 100.6 mg/L. She began cycle 5 on 12/04/2019. Her M protein was down slightly, to 1.1 g/dL. As of 01/01/2020 it had further declined to 0.9 g/dL. She continued with her 6th cycle of treatment, and she then continued with cycle 7 on 02/19/2020 and with cycle 8 on 03/18/2020. At that point her M protein has increased to 1.5 g/dL. In March she underwent a dental extraction/implant procedure. The procedure was complicated by persistent defect in her left upper gum/maxillary bone. She continued with cycle 9 of daratumumab/carfilzomib/dexamethasone on 04/15/2020. She then received a scheduled infusion of daratumumab on 05/12/2020. Her repeat protein electrophoresis at that time showed further increase in the M protein to 2.1 g/dL. Her treatment was put on hold. Her other medical illnesses include hypertension, hyperlipidemia, coronary artery disease, hypothyroidism, GERD, fibromyalgia, degenerative arthritis, and anxiety/depression. Her surgical/procedural history includes coronary angioplasty/stent placement 2015. She has arthroscopic left knee surgery, and she also has had surgery on the right shoulder. She has history of smoking for 25 years, from 1-3 packs of cigarettes daily. She quit smoking in 1989. She has had just occasional alcohol use. She is Judaism, and she will not accept blood products. INTERIM HISTORY: Ms Armenta is here today for followup. She resumed chemotherapy today with a new treatment plan with elotuzumab 2 mg/kg days1, 8. 15, and 22 with pomalidomide 2 mg daily days 1 through 21 and off 7 days on 07/20/2020. Her kappa light chain analysis on June 15, 2020 was reported at 180.7. Her abnormal protein on SPEP from June 15, 2020 was reported at 1.9. In April 2020 it was 2.1 and an December 2019 it was 0.1 and 0.9. She has no new concerns today. She reports that she received her first [place] Covid vaccine last July 17 at [facility]. She reports she tolerated it well. She states today she just feels kind of achy all over but denies any fever or chills. She states she has 1 area open in her gum where the tooth was but again her oral surgeon states that it is healing well. She just has not been back to see him for placement of the implant. She denies any new concerns today. Her ECOG is 1. She reports she is due for her second COVID-19 vaccine on August 14, 2020. She is scheduled for oral surgery on August 17, 2020. Past Medical History: Anxiety/depression Chronic back pain Chronic migraine Coronary artery disease Fibromyalgia Gastroesophageal reflux disease Hypertension Hypothyroidism Past Surgical History: Arthroscopic left knee surgery Left breast biopsy for benign disease Removal of cyst from the right breast Right shoulder surgery Influenza Vaccine in 2019 Coronary angioplasty/stent placement in 2015 Colonoscopy in 2011 Allergies: Codeine Sulfate, LevoFLOXacin, and Vicodin. Medications: amLODIPine Besylate 1 Tablet (of 5 mg) Oral daily Amoxicillin-Pot Clavulanate 1 Tablet (of 875-125 mg) Oral daily for 10 days Body/Hair/Skin/Nails 2 Capsule Oral daily Ckitjkifyn-XDVU-Tsvv-Cod 1 (81-719-89-30 mg) Capsule Oral four times a day PRN Ehgecqcsou-SJOA-Jswbdxpo 1 Capsule (of 50-325-40 mg) Oral daily PRN Cholecalciferol 2 (1000 Units) Capsule Oral daily Curcumin 95 1 (500 mg) Capsule Oral daily PRN Cymbalta 1 (60 mg) Capsule Delayed Release Particles Oral daily Eliquis 1 Tablet (of 2.5 mg) Oral b.i.d. Flagyl 1 Tablet (of 500 mg) Oral daily Furosemide 1 Tablet (of 20 mg) Oral daily PRN Levothyroxine Sodium 1 (50 mcg) Tablet Oral daily LORazepam 0.5 - 1 (1 mg) Tablet Oral q 4 hours PRN Metoprolol Tartrate 1 Tablet (of 50 mg) Oral daily Multivitamin Adult 1 Tablet Oral daily Nitroglycerin 1 (400 mcg/spray) Aerosol, solution Translingual PRN OxyCODONE HCl 1 (30 mg) Tablet Oral 5x/d PRN Pantoprazole Sodium 1 Tablet (of 40 mg) Tablet, enteric coated Oral daily Potassium Chloride ER 1 Tablet (of 10 meq) Tablet, controlled release Oral daily PRN Pravastatin Sodium 1 (40 mg) Tablet Oral daily Prochlorperazine Maleate 1 (10 mg) Tablet Oral four times a day PRN QUEtiapine Fumarate 2 Tablet (of 25 mg) Oral at bedtime Soma 1 (350 mg) Tablet Oral four times a day PRN Family History: Ms. Armenta's mother is alive: heart disease. Ms. Jacobss father is alive. Mother still living at age 87 and she is in relatively good health. She doesn't know about her biologic father. A brother is quadriplegic from a motor vehicle accident. A sister has bipolar disease. A maternal aunt had bladder cancer and another maternal aunt had ovarian cancer. Social History: Ms. Armenta is and she is retired. Ms. Armenta quit smoking 28 years ago but had smoked for 12 years. She drinks occasionally. Ms. Armenta reports the following support systems: lives alone, supportive family/friends willing to assist with needs, and adequate transportation available for expected visits. Her diet consists of regular meals. She indicates her activity level as: occasional exercise. She has a history of smoking for 25 years, in the range of 1-3 packs of cigarettes daily. She quit smoking in 1989. She has had just occasional alcohol use. Review Of Symptoms: Constitutional Denies fevers, chills, night sweats. She has had fatigue-no better but no worse than last visit. Allergic/Immunologic No reactions. Eyes Denies significant visual changes. No diplopia. No amaurosis. ENMT Denies changes in hearing, mouth sores, difficulty or changes in swallowing ability, and/or sinus drainage. Hematologic/Lymphatic Denies easy bleeding. The patient denies any tender or palpable lymph nodes-intermittent bruising but stable. Respiratory Denies dyspnea on exertion, chest pain, cough or hemoptysis. Denies orthopnea. Cardiovascular Denies anginal chest pain, palpitations or orthopnea. Gastrointestinal Denies nausea, vomiting, diarrhea, GI bleeding, or constipation. Denies change in bowel habits and/or stool color, no heartburn or early satiety. Genitourinary (F) No hematuria, hesitancy, incontinence, vaginal bleeding, discharge or other problems with urination. Musculoskeletal Denies joint swelling or redness. No decreased range of motion. States she is having joint pain off and on, but chronic and stable. Chronic lower back pain. Integumentary Denies chronic rashes, inflammation, ulcerations or skin changes. Neurologic Denies headache, blurred vision, and no areas of focal weakness or numbness. Normal gait. No sensory problems. Psychiatric Denies insomnia, depression, danelle or mood swings. Vital Signs: Performed on Jul 29, 2020 13:09 Height - 66.00 in Weight - 164.2 lbs (LOW) BSA - 1.84 sq.m BMI - 26.50 Temperature - 97.2 F (LOW) Pulse - 67 /min Respiration - 19 /min BP - 145/72 mm(hg) (HIGH) O2 Sat - 98 % Pain - 8,1 - No physically strenuous activity, but ambulatory and able to carry out light or sedentary work (e.g. office work, light house work). (ECOG) Physical Examination: Constitutional Alert, oriented, no acute distress. Skin pink, warm and dry. Head Normocephalic; atraumatic. Eyes Conjunctivae and sclerae are clear and without icterus. Pupils are reactive and equal. Neck Supple without masses or thyromegaly. No jugular venous distension. Hematologic/Lymphatic No petechiae or purpura. Respiratory Lungs are clear to auscultation without rhonchi or wheezing. Cardiovascular Regular rate and rhythm of heart without murmurs,clicks, gallops or rubs. Chest left chest wall venous access device insertion site unremarkable. Abdomen Non-tender, non-distended, no masses, ascites. Back/Spine Non-tender to palpation. Extremities No visible deformities, no cyanosis, clubbing or edema. Musculoskeletal No tenderness or swelling, normal range of motion without obvious weakness. Integumentary No rashes or lesions. Neurologic No sensory or motor deficits, normal cerebellar function, normal gait. Psychiatric Alert and oriented times three. Coherent speech. Verbalizes understanding of our discussions today. Laboratory:Test performed on Aug 05, 2020 09:35 Sodium 136 mmol/L Potassium 4.2 mmol/L Chloride 103 mmol/L CO2 23 mmol/L Anion Gap 14.2 BUN 8 mg/dL Creatinine 0.8 mg/dL Cr Clearance (Est) 75.2500 mL/min eGFR 70.9 mL/min Glucose 107 mg/dL Osmolality - Calculated 281 mOsm/kg Calcium 8.7 mg/dL Protein, Total 7.7 g/dL Albumin 3.5 g/dL Globulin 4.2 g/dL Bilirubin, Total 0.2 mg/dL ALT (SGPT) 15 U/L AST (SGOT) 18 U/L Alkaline Phosphatase 89 IU/L Test performed on Jul 29, 2020 11:10 WBC 5.6 10 3/uL RBC 3.55 10 6/uL HGB 10.7 g/dL HCT 33.3 % MCV 93.8 fL MCH 30.1 pg MCHC 32.1 g/dL RDW 14.8 % Platelet Count 221 10 3/cmm MPV 10.4 fL Neutrophils 4.85 10 3/uL Lymphocytes 0.6 10 3/uL Monocytes 0.1 10 3/uL Eosinophils 0.0 10 3/uL Basophils 0.0 10 3/uL Neutrophil % 86.4 % Lymphocyte % 11.4 % Monocyte % 1.6 % Eosinophil % 0.0 % Basophils % 0.2 % NRBC % 0 % Test performed on Jun 15, 2020 14:52 IgG 2319 mg/dL [place] Free Light Chains 180.7 mg/L Lambda Free Light Chains < 1.5 mg/L IgA 50 mg/dL [place]/Lambda Free Ratio > 120.47 IgM 25 mg/dL Test performed on May 12, 2020 08:45 LDH (Total) 214 U/L Impression: 1. IgG kappa myeloma. Bone marrow aspiration/biopsy on 05/17/2017 showed 32% plasma cells, consistent with myeloma. The FISH panel showed gain of chromosome 1q, deletions of RB 1 and LAMP1, and gain of IG. Her baseline M protein was 2.87 g/dL. She was mildly anemic and she had significantly elevated sedimentation rate. She had normal renal function and negative 24-hour urine protein electrophoresis. Skeletal survey showed no lytic bone involvement. PET/CT and MRI both showed findings suspicious for involvement of the T1 vertebral body. She was not overtly symptomatic with it. 2. Pulmonary emboli diagnosed by CT pulmonary angiogram in October 2019. She began on anticoagulation with apixaban. 3. Hypertension. 4. Hyperlipidemia. 5. Coronary artery disease with angioplasty/stent placement in February 2016. 6. Hypothyroidism. 7. GERD. 8. Degenerative arthritis/degenerative disease of the spine. 9. Fibromyalgia. 10. Anxiety/depression. Plan: 1. IgG kappa myeloma, initially diagnosed in April 2017.. Her FISH panel showed gain of chromosome 1q, deletions of RB 1 and LAMP1, and gain of IG. Her baseline M protein was 2.87 g/dL. She began treatment with Velcade/Revlimid/dexamethasone in August 2017. She had poor tolerance, particularly for the Revlimid. As of May 2018 she began her 10th cycle, though with significant treatment delays and dose reductions. As of continued as of July 2018 there was a significant increase in her M protein to 1.4 g/dL and with an increase in her kappa/lambda ratio to 28.90, consistent with disease progression. restaging PET/CT showed only mild FDG activity in the T1 lesion. There were no other areas of FDG uptake, and there was no significant change compared to the prior study in May 2017. She had some response to first-line treatment with Revlimid/Velcade/dexamethasone from August 2017 through May 2018. She tolerated it poorly and she required treatment interruptions and dose reductions. She also showed response to 2nd line therapy with Revlimid/ixazomib/dexamethasone from July 2018 through April 2019. It was put on hold at that point due to persistent neutropenia. She began 3rd line treatment with daratumumab/carfilzomib/dexamethasone in July 2019. She again tolerated it rather poorly, requiring dose attenuations. Her treatment was complicated by pulmonary emboli for which she remains on anticoagulation with apixaban. She did have evidence of response by M protein. However, since February 2020 there has been a gradual increase in her M protein level and in her kappa/lambda ratio, so that she is again showing disease progression. She did have to go onto 4th line treatment regimen with elotuzumab/pomalidomide and began her first cycle on 07/22/2020. A. She will proceed with cycle 1 day 8 elotuzumab 10 mg/kg and pomalidomide 2 mg day 1 through 21. She will start this tomorrow as she did not take dexamethasone 3 to 24 hours prior to her treatment today. B. Today's labs reviewed in detail and discussed with Mrs. Armenta and a copy was given to her. WBC 5.6, hemoglobin 10.7, platelets 221,000 ANC is 4850. Potassium 4.2 random glucose 119 creatinine 0.7 LFTs are normal. Her IgG per QUIGS on July 21, 2020 was reported at 3448 impaired 07/14/2018 on June 15, 2020. Her kappa free light chain on July 21, 2020 was 190.5 and on June 15, 2020 it was 180.7, her lambda free light chain remains at less than 1.5. C. She will have weekly CBC, CMP and follow-ups for following the weekly elotuzumab. D. Ms. Armenta was instructed to contact us in interim should questions or problems arise. 2. 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 She is now scheduled to see an oral surgeon on August 17, 2020. It should be noted that her myeloma treatment did not include Zometa or other bisphosphonate therapy. 3. Pulmonary emboli diagnosed by CT pulmonary angiogram in October 2019. She remains on anticoagulation with apixaban. 4. Chronic pain due to fibromyalgia, degenerative arthritis/disc disease of the spine A. Pain managed with Soma, Lorazepam as needed oxycodone per Dr. Sanchez's written prescription. Signed By: Say Castillo-, AOCNP Sean Sanchez MD <<Signature on File>>
== END 2020-07-29 05:49 | disposition home or self-care (01) ==
LOC: ONCMED 05:51
PROVIDERS: PCP Internal Medicine; Visit Provider Nurse Practitioner
DX: Z51.12 Encounter for antineoplastic immunotherapy (principal); C90.00 Multiple myeloma not having achieved remission; M79.7 Fibromyalgia; M48.9 Spondylopathy, unspecified; Z79.899 Other long term (current) drug therapy; Z86.711 Personal history of pulmonary embolism; Z79.01 Long term (current) use of anticoagulants
CPT/HCPCS: 36591; 80053; 84155; 84165; 85025; 96367; 96375; 96413; 96415; 99214; J1100; J1200; J3490; J7050; J9176

== ENCOUNTER 2020-08-05 05:54 | Outpatient (CLI) | payer MEDICARE, SELFPAY ==
[2020-08-05 09:52] LABS: Basophils # 0.1 10^3/uL (0.0-0.1); Basophils % 1.7 %; Eosinophils # 0.2 10^3/uL (0.0-0.8); Eosinophils % 6.5 %; Hematocrit 32.9 % (37.0-47.0); Hemoglobin 10.6 g/dL (11.5-15.3); Lymphocytes # 0.8 10^3/uL (0.8-4.8); Lymphocytes % 21.6 %; Mean Corpuscular HGB Conc 32.2 g/dL (30.0-36.0); Mean Corpuscular Hemoglobin 30.1 pg (28.0-34.0); Mean Corpuscular Volume 93.5 fL (81-99); Mean Platelet Volume 10.3 fL (7.4-10.4); Monocytes # 0.2 10^3/uL (0.2-0.9); Monocytes % 4.2 %; Neutrophils # 2.33 10^3/uL (1.8-7.7); Neutrophils % 65.4 %; Nucleated Red Blood Cells % 0 %; Platelet Count 143 10^3/cmm (130-400); Red Blood Count 3.52 10^6/uL (4.1-5.3); Red Cell Distribution Width 14.8 % (12.1-15.1); White Blood Count 3.6 10^3/uL (4.0-10.0)
[2020-08-05 10:09] LABS: Alanine Aminotransferase 15 U/L (0-33); Albumin Level 3.5 g/dL (3.5-5.2); Alkaline Phosphatase 89 IU/L (35-105); Anion Gap 14.2 (5-19); Aspartate Amino Transferase 18 U/L (0-32); Blood Urea Nitrogen 8 mg/dL (8-23); Calcium 8.7 mg/dL (8.5-10.5); Carbon Dioxide 23 mmol/L (22-29); Chloride 103 mmol/L (98-107); Globulin 4.2 g/dL (1.3-4.6); Glomerular Filtration Rate 70.9 mL/min (90-130); Glucose 107 mg/dL (65-115); Osmolality Calculated 281 mOsm/kg (285-295); Potassium 4.2 mmol/L (3.5-5.1); Sodium 136 mmol/L (136-145); Total Bilirubin 0.2 mg/dL (0.15-1.2); Total Protein 7.7 g/dL (6.6-8.7)
[2020-08-05 11:04] LABS: Slide Review Slide Review Perform
[2020-08-05] MEDS: sodium chloride 0.9% 250 ML IV (11:10)
[2020-08-05] MEDS: famotidine 20 mg/2 mL INJ IVP (11:10)
[2020-08-05] MEDS: acetaminophen 325 mg Tablet 650 MG PO (11:11)
[2020-08-05] MEDS: sodium chloride 0.9% (100 ml) 100 ML 400 ML (11:14)
[2020-08-05] MEDS: diphenhydrAMINE 50 mg/mL SDV 1mL 25 MG IVP (11:14)
--- NOTE | 2020-08-12 11:36 | ONC FU_ITS ---
[facility] Patient Note Patient: Karely Armenta Unit #: [id number]: 1950 Dictated By: Say CastilloDate of Visit: Aug 05, 2020 Onc MED Follow-Up/Prog Note Chief Complaint: Myeloma. History of Present Illness: Ms Armenta is a 70 year-old woman with IgG kappa myeloma. She was found to be moderately anemic in December 2016 when she was admitted to the hospital with pneumonia. She also reported having had an illness the preceding summer, in October or November, which may have been tick fever, but that was never confirmed. Her follow-up laboratory studies with Dr. Garcia on 05/03/2017 included CBC showing hemoglobin 11.9 g with white blood cell count 5100 and platelet count 155,000. Her sedimentation rate was significantly elevated at 94 mm/hour. The chem profile showed normal renal function with BUN 13 and creatinine 0.96 mg/dL. Calcium was normal at 9.0 mg/dL. Protein electrophoresis showed a monoclonal protein quantitating at 2.5 g/dL. Immunofixation showed an IgG kappa paraprotein measuring 2.87 g/dL. Hepatits screen was nonreactive to hepatitis C, hepatitis Bs antigen, and hepatitis B core total Ab referral. The hepatitis B surface antibody was < 3.10. LDH was normal at 149 U/L. The beta-2 microglobulin was slightly elevated at 0.420 mg/dL. Dr Sanchez had seen her initially on 05/11/2017. Repeat protein electrophoresis with immunofixation prior to that visit, from 05/09/2017, showed IgG kappa monoclonal protein quantitating at 2.87 g/dL. The kappa light chain was elevated at 177.96 mg/L with lambda light chain 1.73 mg/L and kappa/lambda ratio elevated at 102. On her further evaluation there was no monoclonal protein detected in a 24-hour urine specimen. Skeletal survey on 05/11/2017 showed cervical and lumbar spondylosis and bilateral hip joint osteoarthritic changes. There was no radiographic evidence of multiple myeloma. She underwent bone marrow aspiration/biopsy on 05/17/2017. The cellularity was estimated at 70% with 32% plasma cells. Iron stores were noted to be absent. The FISH panel for myeloma showed gain of chromosome 1q, deletions of RB 1 and LAMP1, and gain of IG. The standard chromosome analysis was normal. Overall, the findings were consistent with plasma cell neoplasm/myeloma. Staging PET/CT on 06/03/2017 showed a single FDG avid osteolytic site in the T1 vertebral body which was felt to possibly represent multiple myeloma. She then had further evaluation with MRI of the spine on 07/12/2017. There were significant degenerative changes in the cervical spine which included moderate central canal stenosis at C4-C5, C5-C6, and C7 as well as bilateral nerve root encroachment at C5, C6, and C7. There were also degenerative changes in the lumbar spine with interval STIR signal abnormality and enhancement of T10-L5 spinous processes suggesting possible myelomatous changes. The thoracic spine showed subtle diffuse signal and enhancement abnormality involving the T1 vertebral body. In correlation with the PET/CT findings, this was felt to be suspicious for neoplastic process, including multiple myeloma. There were no actual lytic lesions identified. She began treatment with Velcade/Revlimid/dexamethasone in August 2017. She tolerated it rather poorly, and she did require treatment interruptions and dose reductions, but she idd show evidence for response. As of April 2018, during her 9th cycle, her M protein had declined to 0.84 g/dL. She continued with cycle 10 in May 2018. However, a repeat protein electrophoresis on 07/20/2018 showed an increase in the M protein to 1.4 g/dL. The free light chain assay showed and increase in the free kappa light chain to 83.8 mg/L with elevated kappa/lambda ratio at 28.90. In August 2018 she began second line treatment with Revlimid/ixazomib/dexamethasone. Due to her previous toxicities with Revlimid, it was initiated at a reduced dosage of 10 mg daily on a 21/28 day schedule with ixazomib dosed at 4 mg on days 18 and 15 and the dexamethasone dose at 40 mg weekly. She was able to tolerate it with acceptable toxicity. As of 05/06/2019 her treatment was put on hold due to persistent neutropenia. In May 2019 she had taken a trip to [place], and while she was there she became very ill and required treatment for pneumonia. She returned here for a follow-up visit in June. Her repeat protein electrophoresis on 07/02/2019 showed increase in the M protein to 2.0 g/dL. Her free light chain assay showed increased kappa light chain to 142 mg/L with lambda light chain 2.9 mg/L, and elevated kappa/lambda ratio at 49.38. Restaging PET/CT on 07/13/2019 showed stable findings in the T1 lesion with FDG activity no greater than that of marrow background, consistent with successfully treated disease. There was no evidence of any new lesions. However, with the significant increase in the M protein and in the kappa free light chain, she was recommended to proceed with 3rd line treatment with daratumumab in combination with carfilzomib and dexamethasone. Her baseline echocardiogram showed normal left ventricular function with ejection fraction estimated at 60%. She returned to begin cycle 1 of daratumumab/carfilzomib/dexamethasone on 08/12/2019. The initial infusion of daratumumab was administered in divided doses over 2 days. She tolerated the treatment well. However, her day 8 treatment was complicated by nausea and profuse diaphoresis, which she attributed to the daratumumab. She was able to complete her day 9 carfilzomib treatment. Her day 15/16 treatment was withheld due to a drop in her white blood cell count to 2000 with her ANC at 1000. She did not have fever or other complications. She was given her week 3 daratumumab the following week, but it was opted to split the dosage over 2 days. She tolerated it with no adverse effects. She continued with cycle 2 on 09/11/2019 with the carfilzomib administered at a reduced dosage and with the daratumumab administered in a split dosage. She continued to have anemia, moderately severe neutropenia, and mild thrombocytopenia, but she was able to tolerate the treatment with acceptable toxicity. As of 10/02/2019 the M protein had decreased to 1.1 g/dL. She proceeded with cycle 3 on 10/09/2019. At cycle 3-day 15, on 10/22/2019, her carfilzomib was omitted due to neutropenia, ANC 1400. She did receive her 8th weekly infusion of daratumumab, administered as a single infusion. At that time she also was complaining increased shortness of breath, and a CT pulmonary angiogram showed small filling defects in both the right and left secondary pulmonary arteries consistent with thromboembolic disease. Altered perfusion was seen in those areas. As it did appear to be clinically significant, she was started on anticoagulation with apixaban. She continued with her 4th cycle of treatment on 11/06/2019 with the daratumumab administered at 2-week intervals. At that point her M protein was stable at 1.2 g/dL. The serum free light chain assay, though, did show a decline in her free kappa light chain from 143.7 to 100.6 mg/L. She began cycle 5 on 12/04/2019. Her M protein was down slightly, to 1.1 g/dL. As of 01/01/2020 it had further declined to 0.9 g/dL. She continued with her 6th cycle of treatment, and she then continued with cycle 7 on 02/19/2020 and with cycle 8 on 03/18/2020. At that point her M protein has increased to 1.5 g/dL. In March she underwent a dental extraction/implant procedure. The procedure was complicated by persistent defect in her left upper gum/maxillary bone. She continued with cycle 9 of daratumumab/carfilzomib/dexamethasone on 04/15/2020. She then received a scheduled infusion of daratumumab on 05/12/2020. Her repeat protein electrophoresis at that time showed further increase in the M protein to 2.1 g/dL. Her treatment was put on hold. Her other medical illnesses include hypertension, hyperlipidemia, coronary artery disease, hypothyroidism, GERD, fibromyalgia, degenerative arthritis, and anxiety/depression. Her surgical/procedural history includes coronary angioplasty/stent placement 2015. She has arthroscopic left knee surgery, and she also has had surgery on the right shoulder. She has history of smoking for 25 years, from 1-3 packs of cigarettes daily. She quit smoking in 1989. She has had just occasional alcohol use. She is Yazidi, and she will not accept blood products. INTERIM HISTORY: Ms Armenta is here today for followup. She resumed chemotherapy today with a new treatment plan with elotuzumab 2 mg/kg days1, 8. 15, and 22 with pomalidomide 2 mg daily days 1 through 21 and off 7 days on 07/20/2020. Her kappa light chain analysis on June 15, 2020 was reported at 180.7. Her abnormal protein on SPEP from June 15, 2020 was reported at 1.9. In April 2020 it was 2.1 and an December 2019 it was 0.1 and 0.9. She has no new concerns today. She reports that she received her first [place] Covid vaccine July 17 at [facility]. She reports she tolerated it well. He is here today for follow-up. She is due for day 15 elotuzumab. She is also on pomalidomide 2 mg daily days 1 through 21. She states overall she still feels a little achy. She has had symptoms diaphoresis off and on and sore throat but she did with her Revlimid. She denies any trouble swallowing she states is just feels sore at times. She denies any fever or chills. She has no new pain. She states her appetite is okay her energy is fair she does have shortness of breath which she states seems to be somewhat worsened starting this new regimen but thus far is not affecting her ADLs. She denies any rash. She denies any chest pain or palpitations. She has had no nausea or vomiting. She denies any changes with neuropathy symptoms. She denies any bowel or bladder changes. She is had no hematuria. She denies any cough. She continues to have some anxiety over her upcoming oral surgery which is scheduled for August 17, 2020. She is also due for her second [place] Covid vaccine on August 14. Her ECOG is 1. Past Medical History: Anxiety/depression Chronic back pain Chronic migraine Coronary artery disease Fibromyalgia Gastroesophageal reflux disease Hypertension Hypothyroidism Past Surgical History: Arthroscopic left knee surgery Left breast biopsy for benign disease Removal of cyst from the right breast Right shoulder surgery Influenza Vaccine in 2019 Coronary angioplasty/stent placement in 2015 Colonoscopy in 2011 Allergies: Codeine Sulfate, LevoFLOXacin, and Vicodin. Medications: amLODIPine Besylate 1 Tablet (of 5 mg) Oral daily Amoxicillin-Pot Clavulanate 1 Tablet (of 875-125 mg) Oral daily for 10 days Body/Hair/Skin/Nails 2 Capsule Oral daily Jmzensoahm-GHQC-Nakz-Cod 1 (57-206-66-30 mg) Capsule Oral four times a day PRN Ibtrveshbn-NCCS-Wghzwtoc 1 Capsule (of 50-325-40 mg) Oral daily PRN Cholecalciferol 2 (1000 Units) Capsule Oral daily Curcumin 95 1 (500 mg) Capsule Oral daily PRN Cymbalta 1 (60 mg) Capsule Delayed Release Particles Oral daily Eliquis 1 Tablet (of 2.5 mg) Oral b.i.d. Flagyl 1 Tablet (of 500 mg) Oral daily Furosemide 1 Tablet (of 20 mg) Oral daily PRN Levothyroxine Sodium 1 (50 mcg) Tablet Oral daily LORazepam 0.5 - 1 (1 mg) Tablet Oral q 4 hours PRN Metoprolol Tartrate 1 Tablet (of 50 mg) Oral daily Multivitamin Adult 1 Tablet Oral daily Nitroglycerin 1 (400 mcg/spray) Aerosol, solution Translingual PRN OxyCODONE HCl 1 (30 mg) Tablet Oral 5x/d PRN Pantoprazole Sodium 1 Tablet (of 40 mg) Tablet, enteric coated Oral daily Potassium Chloride ER 1 Tablet (of 10 meq) Tablet, controlled release Oral daily PRN Pravastatin Sodium 1 (40 mg) Tablet Oral daily Prochlorperazine Maleate 1 (10 mg) Tablet Oral four times a day PRN QUEtiapine Fumarate 2 Tablet (of 25 mg) Oral at bedtime Soma 1 (350 mg) Tablet Oral four times a day PRN Family History: Ms. Armenta's mother is alive: heart disease. Ms. Jacobss father is alive. Mother still living at age 87 and she is in relatively good health. She doesn't know about her biologic father. A brother is quadriplegic from a motor vehicle accident. A sister has bipolar disease. A maternal aunt had bladder cancer and another maternal aunt had ovarian cancer. Social History: Ms. Armenta is and she is retired. Ms. Armenta quit smoking 28 years ago but had smoked for 12 years. She drinks occasionally. Ms. Armenta reports the following support systems: lives alone, supportive family/friends willing to assist with needs, and adequate transportation available for expected visits. Her diet consists of regular meals. She indicates her activity level as: occasional exercise. She has a history of smoking for 25 years, in the range of 1-3 packs of cigarettes daily. She quit smoking in 1989. She has had just occasional alcohol use. Review Of Symptoms: Constitutional Denies fevers, chills, night sweats. She has had fatigue-no better but no worse than last visit. Allergic/Immunologic No reactions. Eyes Denies significant visual changes. No diplopia. No amaurosis. ENMT Denies changes in hearing, mouth sores, difficulty or changes in swallowing ability, and/or sinus drainage. Endocrine Hematologic/Lymphatic Denies easy bleeding. The patient denies any tender or palpable lymph nodes-intermittent bruising but stable. Respiratory Denies dyspnea on exertion, chest pain, cough or hemoptysis. Denies orthopnea. Cardiovascular Denies anginal chest pain, palpitations or orthopnea. Gastrointestinal Denies nausea, vomiting, diarrhea, GI bleeding, or constipation. Denies change in bowel habits and/or stool color, no heartburn or early satiety. Genitourinary (F) No hematuria, hesitancy, incontinence, vaginal bleeding, discharge or other problems with urination. Musculoskeletal Denies joint swelling or redness. No decreased range of motion. States she is having joint pain off and on, but chronic and stable. Chronic lower back pain. Integumentary Denies chronic rashes, inflammation, ulcerations or skin changes. Neurologic Denies headache, blurred vision, and no areas of focal weakness or numbness. Normal gait. No sensory problems. Psychiatric Denies insomnia, depression, danelle or mood swings. Vital Signs: Performed on Aug 05, 2020 11:11 Height - 66.00 in Weight - 166.0 lbs (HIGH) BSA - 1.85 sq.m BMI - 26.79 Temperature - 97.0 F (LOW) Pulse - 85 /min Respiration - 17 /min BP - 163/77 mm(hg) (HIGH) O2 Sat - 94 % (LOW) Pain - 6,1 - No physically strenuous activity, but ambulatory and able to carry out light or sedentary work (e.g. office work, light house work). (ECOG) Physical Examination: Constitutional Alert, oriented, no acute distress. Skin pink, warm and dry. Head Normocephalic; atraumatic. Eyes Conjunctivae and sclerae are clear and without icterus. Pupils are reactive and equal. ENMT Sinuses are nontender. No oral exudates, ulcers, masses, thrush or mucositis. Tongue normal. Neck Supple without masses or thyromegaly. No jugular venous distension. Hematologic/Lymphatic No petechiae or purpura. Respiratory Lungs are clear to auscultation without rhonchi or wheezing. Cardiovascular Regular rate and rhythm of heart without murmurs,clicks, gallops or rubs. Chest left chest wall venous access device insertion site unremarkable. Abdomen Non-tender, non-distended, no masses, ascites. Back/Spine Non-tender to palpation. Extremities No visible deformities, no cyanosis, clubbing or edema. Musculoskeletal No tenderness or swelling, normal range of motion without obvious weakness. Integumentary No rashes or lesions. Neurologic No sensory or motor deficits, normal cerebellar function, normal gait. Psychiatric Alert and oriented times three. Coherent speech. Verbalizes understanding of our discussions today. Laboratory:Test performed on Aug 05, 2020 09:35 Sodium 136 mmol/L Potassium 4.2 mmol/L Chloride 103 mmol/L CO2 23 mmol/L Anion Gap 14.2 BUN 8 mg/dL Creatinine 0.8 mg/dL Cr Clearance (Est) 75.2500 mL/min eGFR 70.9 mL/min Glucose 107 mg/dL Osmolality - Calculated 281 mOsm/kg Calcium 8.7 mg/dL Protein, Total 7.7 g/dL Albumin 3.5 g/dL Globulin 4.2 g/dL Bilirubin, Total 0.2 mg/dL ALT (SGPT) 15 U/L AST (SGOT) 18 U/L Alkaline Phosphatase 89 IU/L WBC 3.6 10 3/uL RBC 3.52 10 6/uL HGB 10.6 g/dL HCT 32.9 % MCV 93.5 fL MCH 30.1 pg MCHC 32.2 g/dL RDW 14.8 % Platelet Count 143 10 3/cmm MPV 10.3 fL Neutrophils 2.33 10 3/uL Lymphocytes 0.8 10 3/uL Monocytes 0.2 10 3/uL Eosinophils 0.2 10 3/uL Basophils 0.1 10 3/uL Neutrophil % 65.4 % Lymphocyte % 21.6 % Monocyte % 4.2 % Eosinophil % 6.5 % Basophils % 1.7 % NRBC % 0 % CBC Slide Review Slide Review Perform SLIDE REVIEW AGREES WITH AUTOMATED RESULTS ST Test performed on Jun 15, 2020 14:52 IgG 2319 mg/dL [place] Free Light Chains 180.7 mg/L Lambda Free Light Chains < 1.5 mg/L IgA 50 mg/dL [place]/Lambda Free Ratio > 120.47 IgM 25 mg/dL Test performed on May 12, 2020 08:45 LDH (Total) 214 U/L Impression: 1. IgG kappa myeloma. Bone marrow aspiration/biopsy on 05/17/2017 showed 32% plasma cells, consistent with myeloma. The FISH panel showed gain of chromosome 1q, deletions of RB 1 and LAMP1, and gain of IG. Her baseline M protein was 2.87 g/dL. She was mildly anemic and she had significantly elevated sedimentation rate. She had normal renal function and negative 24-hour urine protein electrophoresis. Skeletal survey showed no lytic bone involvement. PET/CT and MRI both showed findings suspicious for involvement of the T1 vertebral body. She was not overtly symptomatic with it. 2. Pulmonary emboli diagnosed by CT pulmonary angiogram in October 2019. She began on anticoagulation with apixaban. 3. Hypertension. 4. Hyperlipidemia. 5. Coronary artery disease with angioplasty/stent placement in February 2016. 6. Hypothyroidism. 7. GERD. 8. Degenerative arthritis/degenerative disease of the spine. 9. Fibromyalgia. 10. Anxiety/depression. Plan: 1. IgG kappa myeloma, initially diagnosed in April 2017.. Her FISH panel showed gain of chromosome 1q, deletions of RB 1 and LAMP1, and gain of IG. Her baseline M protein was 2.87 g/dL. She began treatment with Velcade/Revlimid/dexamethasone in August 2017. She had poor tolerance, particularly for the Revlimid. As of May 2018 she began her 10th cycle, though with significant treatment delays and dose reductions. As of continued as of July 2018 there was a significant increase in her M protein to 1.4 g/dL and with an increase in her kappa/lambda ratio to 28.90, consistent with disease progression. restaging PET/CT showed only mild FDG activity in the T1 lesion. There were no other areas of FDG uptake, and there was no significant change compared to the prior study in May 2017. She had some response to first-line treatment with Revlimid/Velcade/dexamethasone from August 2017 through May 2018. She tolerated it poorly and she required treatment interruptions and dose reductions. She also showed response to 2nd line therapy with Revlimid/ixazomib/dexamethasone from July 2018 through April 2019. It was put on hold at that point due to persistent neutropenia. She began 3rd line treatment with daratumumab/carfilzomib/dexamethasone in July 2019. She again tolerated it rather poorly, requiring dose attenuations. Her treatment was complicated by pulmonary emboli for which she remains on anticoagulation with apixaban. She did have evidence of response by M protein. However, since February 2020 there has been a gradual increase in her M protein level and in her kappa/lambda ratio, so that she is again showing disease progression. She did have to go onto 4th line treatment regimen with elotuzumab/pomalidomide and began her first cycle on 07/22/2020. A. She will proceed with cycle 1 day 15 elotuzumab 10 mg/kg and pomalidomide 2 mg day 1 through 21. Her compliance is confirmed today. B. Today's labs reviewed in detail and discussed with Mrs. Armenta and a copy was given to her. WBC 3.6, hemoglobin 10.6, platelets 1 43,000 ANC is 2330. Creatinine 0.8 random glucose 107 potassium 4.2 LFTs are normal. Her IgG per QUIGS on July 21, 2020 was reported at 3448 impaired 07/14/2018 on June 15, 2020. Her kappa free light chain on July 21, 2020 was 190.5 and on June 15, 2020 it was 180.7, her lambda free light chain remains at less than 1.5. C. She will have weekly CBC, CMP and follow-ups for following the weekly elotuzumab and pomalidomide. D. Ms. Armenta was instructed to contact us in interim should questions or problems arise. 2. 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 She is now scheduled to see an oral surgeon on August 17, 2020. It should be noted that her myeloma treatment did not include Zometa or other bisphosphonate therapy. 3. Pulmonary emboli diagnosed by CT pulmonary angiogram in October 2019. She remains on anticoagulation with apixaban. 4. Chronic pain due to fibromyalgia, degenerative arthritis/disc disease of the spine A. Pain managed with Soma, Lorazepam as needed oxycodone per Dr. Sanchez's written prescription. 5. She is due for her second [place] Covid vaccine on August 14, 2020. She also reports she is due for oral surgery on August 17, 2020. Signed By: Say Castillo-, [facility] Sean Sanchez MD <<Signature on File>>
== END 2020-08-05 05:55 | disposition home or self-care (01) ==
LOC: ONCMED 05:56
PROVIDERS: PCP Internal Medicine; Visit Provider Nurse Practitioner
DX: Z51.11 Encounter for antineoplastic chemotherapy (principal); C90.00 Multiple myeloma not having achieved remission; D47.2 Monoclonal gammopathy; D70.1 Agranulocytosis secondary to cancer chemotherapy; T45.1X5A Adverse effect of antineoplastic and immunosuppressive drugs, initial encounter; F41.9 Anxiety disorder, unspecified; F32.9 Major depressive disorder, single episode, unspecified; G89.29 Other chronic pain; M54.5 Low back pain; G43.919 Migraine, unspecified, intractable, without status migrainosus; I25.10 Atherosclerotic heart disease of native coronary artery without angina pectoris; M79.7 Fibromyalgia; K21.9 Gastro-esophageal reflux disease without esophagitis; I10 Essential (primary) hypertension; E03.9 Hypothyroidism, unspecified; Z79.899 Other long term (current) drug therapy
CPT/HCPCS: 80053; 85025; 96367; 96375; 96413; 99215; J1100; J1200; J3490; J7050; J9176

== ENCOUNTER 2020-08-12 05:45 | Outpatient (CLI) | payer MEDICARE, SELFPAY ==
[2020-08-12 10:08] LABS: Basophils % 1.8 %; Eosinophils # 0.1 10^3/uL (0.0-0.8); Eosinophils % 4.9 %; Hemoglobin 10.8 g/dL (11.5-15.3); Lymphocytes # 0.7 10^3/uL (0.8-4.8); Lymphocytes % 30.5 %; Mean Corpuscular HGB Conc 30.9 g/dL (30.0-36.0); Mean Corpuscular Hemoglobin 28.3 pg (28.0-34.0); Mean Corpuscular Volume 91.9 fL (81-99); Mean Platelet Volume 10.5 fL (7.4-10.4); Monocytes # 0.1 10^3/uL (0.2-0.9); Neutrophils # 1.29 10^3/uL (1.8-7.7); Neutrophils % 57.9 %; Nucleated Red Blood Cells % 0 %; Platelet Count 164 10^3/cmm (130-400); Red Blood Count 3.81 10^6/uL (4.1-5.3); Red Cell Distribution Width 14.5 % (12.1-15.1); White Blood Count 2.2 10^3/uL (4.0-10.0)
[2020-08-12 10:54] LABS: Alanine Aminotransferase 10 U/L (0-33); Albumin Level 3.7 g/dL (3.5-5.2); Alkaline Phosphatase 91 IU/L (35-105); Anion Gap 16.1 (5-19); Aspartate Amino Transferase 13 U/L (0-32); Blood Urea Nitrogen 9 mg/dL (8-23); Carbon Dioxide 24 mmol/L (22-29); Chloride 102 mmol/L (98-107); Globulin 4.2 g/dL (1.3-4.6); Glomerular Filtration Rate 82.7 mL/min (90-130); Glucose 115 mg/dL (65-115); Osmolality Calculated 286 mOsm/kg (285-295); Potassium 4.1 mmol/L (3.5-5.1); Sodium 138 mmol/L (136-145); Total Bilirubin 0.2 mg/dL (0.15-1.2); Total Protein 7.9 g/dL (6.6-8.7)
--- NOTE | 2020-08-20 00:18 | ONC FU_ITS ---
[facility] Patient Note Patient: Karely Armenta Unit #: [id number]: [id number] Dictated By: Say CastilloDate of Visit: Aug 12, 2020 Onc MED Follow-Up/Prog Note Chief Complaint: Myeloma. History of Present Illness: Ms Armenta is a 70 year-old woman with IgG kappa myeloma. She was found to be moderately anemic in December 2016 when she was admitted to the hospital with pneumonia. She also reported having had an illness the preceding summer, in October or November, which may have been tick fever, but that was never confirmed. Her follow-up laboratory studies with Dr. Garcia on 05/03/2017 included CBC showing hemoglobin 11.9 g with white blood cell count 5100 and platelet count 155,000. Her sedimentation rate was significantly elevated at 94 mm/hour. The chem profile showed normal renal function with BUN 13 and creatinine 0.96 mg/dL. Calcium was normal at 9.0 mg/dL. Protein electrophoresis showed a monoclonal protein quantitating at 2.5 g/dL. Immunofixation showed an IgG kappa paraprotein measuring 2.87 g/dL. Hepatitis screen was nonreactive to hepatitis C, hepatitis Bs antigen, and hepatitis B core total Ab referral. The hepatitis B surface antibody was < 3.10. LDH was normal at 149 U/L. The beta-2 microglobulin was slightly elevated at 0.420 mg/dL. Dr Sanchez had seen her initially on 05/11/2017. Repeat protein electrophoresis with immunofixation prior to that visit, from 05/09/2017, showed IgG kappa monoclonal protein quantitating at 2.87 g/dL. The kappa light chain was elevated at 177.96 mg/L with lambda light chain 1.73 mg/L and kappa/lambda ratio elevated at 102. On her further evaluation there was no monoclonal protein detected in a 24-hour urine specimen. Skeletal survey on 05/11/2017 showed cervical and lumbar spondylosis and bilateral hip joint osteoarthritic changes. There was no radiographic evidence of multiple myeloma. She underwent bone marrow aspiration/biopsy on 05/17/2017. The cellularity was estimated at 70% with 32% plasma cells. Iron stores were noted to be absent. The FISH panel for myeloma showed gain of chromosome 1q, deletions of RB 1 and LAMP1, and gain of IG. The standard chromosome analysis was normal. Overall, the findings were consistent with plasma cell neoplasm/myeloma. Staging PET/CT on 06/03/2017 showed a single FDG avid osteolytic site in the T1 vertebral body which was felt to possibly represent multiple myeloma. She then had further evaluation with MRI of the spine on 07/12/2017. There were significant degenerative changes in the cervical spine which included moderate central canal stenosis at C4-C5, C5-C6, and C7 as well as bilateral nerve root encroachment at C5, C6, and C7. There were also degenerative changes in the lumbar spine with interval STIR signal abnormality and enhancement of T10-L5 spinous processes suggesting possible myelomatous changes. The thoracic spine showed subtle diffuse signal and enhancement abnormality involving the T1 vertebral body. In correlation with the PET/CT findings, this was felt to be suspicious for neoplastic process, including multiple myeloma. There were no actual lytic lesions identified. She began treatment with Velcade/Revlimid/dexamethasone in August 2017. She tolerated it rather poorly, and she did require treatment interruptions and dose reductions, but she idd show evidence for response. As of April 2018, during her 9th cycle, her M protein had declined to 0.84 g/dL. She continued with cycle 10 in May 2018. However, a repeat protein electrophoresis on 07/20/2018 showed an increase in the M protein to 1.4 g/dL. The free light chain assay showed and increase in the free kappa light chain to 83.8 mg/L with elevated kappa/lambda ratio at 28.90. In August 2018 she began second line treatment with Revlimid/ixazomib/dexamethasone. Due to her previous toxicities with Revlimid, it was initiated at a reduced dosage of 10 mg daily on a 21/28 day schedule with ixazomib dosed at 4 mg on days 18 and 15 and the dexamethasone dose at 40 mg weekly. She was able to tolerate it with acceptable toxicity. As of 05/06/2019 her treatment was put on hold due to persistent neutropenia. In May 2019 she had taken a trip to [place], and while she was there she became very ill and required treatment for pneumonia. She returned here for a follow-up visit in June. Her repeat protein electrophoresis on 07/02/2019 showed increase in the M protein to 2.0 g/dL. Her free light chain assay showed increased kappa light chain to 142 mg/L with lambda light chain 2.9 mg/L, and elevated kappa/lambda ratio at 49.38. Restaging PET/CT on 07/13/2019 showed stable findings in the T1 lesion with FDG activity no greater than that of marrow background, consistent with successfully treated disease. There was no evidence of any new lesions. However, with the significant increase in the M protein and in the kappa free light chain, she was recommended to proceed with 3rd line treatment with daratumumab in combination with carfilzomib and dexamethasone. Her baseline echocardiogram showed normal left ventricular function with ejection fraction estimated at 60%. She returned to begin cycle 1 of daratumumab/carfilzomib/dexamethasone on 08/12/2019. The initial infusion of daratumumab was administered in divided doses over 2 days. She tolerated the treatment well. However, her day 8 treatment was complicated by nausea and profuse diaphoresis, which she attributed to the daratumumab. She was able to complete her day 9 carfilzomib treatment. Her day 15/16 treatment was withheld due to a drop in her white blood cell count to 2000 with her ANC at 1000. She did not have fever or other complications. She was given her week 3 daratumumab the following week, but it was opted to split the dosage over 2 days. She tolerated it with no adverse effects. She continued with cycle 2 on 09/11/2019 with the carfilzomib administered at a reduced dosage and with the daratumumab administered in a split dosage. She continued to have anemia, moderately severe neutropenia, and mild thrombocytopenia, but she was able to tolerate the treatment with acceptable toxicity. As of 10/02/2019 the M protein had decreased to 1.1 g/dL. She proceeded with cycle 3 on 10/09/2019. At cycle 3-day 15, on 10/22/2019, her carfilzomib was omitted due to neutropenia, ANC 1400. She did receive her 8th weekly infusion of daratumumab, administered as a single infusion. At that time she also was complaining increased shortness of breath, and a CT pulmonary angiogram showed small filling defects in both the right and left secondary pulmonary arteries consistent with thromboembolic disease. Altered perfusion was seen in those areas. As it did appear to be clinically significant, she was started on anticoagulation with apixaban. She continued with her 4th cycle of treatment on 11/06/2019 with the daratumumab administered at 2-week intervals. At that point her M protein was stable at 1.2 g/dL. The serum free light chain assay, though, did show a decline in her free kappa light chain from 143.7 to 100.6 mg/L. She began cycle 5 on 12/04/2019. Her M protein was down slightly, to 1.1 g/dL. As of 01/01/2020 it had further declined to 0.9 g/dL. She continued with her 6th cycle of treatment, and she then continued with cycle 7 on 02/19/2020 and with cycle 8 on 03/18/2020. At that point her M protein has increased to 1.5 g/dL. In March she underwent a dental extraction/implant procedure. The procedure was complicated by persistent defect in her left upper gum/maxillary bone. She continued with cycle 9 of daratumumab/carfilzomib/dexamethasone on 04/15/2020. She then received a scheduled infusion of daratumumab on 05/12/2020. Her repeat protein electrophoresis at that time showed further increase in the M protein to 2.1 g/dL. Her treatment was put on hold. Her other medical illnesses include hypertension, hyperlipidemia, coronary artery disease, hypothyroidism, GERD, fibromyalgia, degenerative arthritis, and anxiety/depression. Her surgical/procedural history includes coronary angioplasty/stent placement 2015. She has arthroscopic left knee surgery, and she also has had surgery on the right shoulder. She has history of smoking for 25 years, from 1-3 packs of cigarettes daily. She quit smoking in 1989. She has had just occasional alcohol use. She is Rastafari, and she will not accept blood products. INTERIM HISTORY: Ms Armenta is here today for followup. She resumed chemotherapy today with a new treatment plan with elotuzumab 2 mg/kg days1, 8. 15, and 22 with pomalidomide 2 mg daily days 1 through 21 and off 7 days on 07/20/2020. Her kappa light chain analysis on June 15, 2020 was reported at 180.7. Her abnormal protein on SPEP from June 15, 2020 was reported at 1.9. In April 2020 it was 2.1 and an December 2019 it was 0.1 and 0.9. She has no new concerns today. She reports that she received her first [place] Covid vaccine July 17 at [facility]. She reports she tolerated it well. He is here today for follow-up. She is due for day 22 elotuzumab. She is also on pomalidomide 2 mg daily days 1 through 21. She states overall she is just kind of tired. She states she does feel better than she did last week but is still having some achiness off and on. She states she is having some shortness of breath but thinks it is related to the treatment because a couple days after treatment the shortness of breath gets worse and just before she comes back it resolves. She states she has had 2 episodes of chest pain both at rest. Both were relieved with nitroglycerin. She states her shoulders felt really tight and radiate down her arm and kind of upper neck but the nitroglycerin took care of it. She does have an appoint with cardiology coming up soon. She denies any fever or chills. She denies any signs of infection. She states her appetite is fairly good. She is trying to be active but does wear out easily. She has had a lot of stress with building her house in [place] and trying to decide when to go out and make decisions regarding the construction. She states her bowels and bladder are normal for her. She has no new pain other than the chest pain as she mentioned above. She denies any lower extremity edema. She denies any orthopnea. Her neuropathy is stable.. She continues to have some anxiety over her upcoming oral surgery which is scheduled for August 17, 2020. She is also due for her second [place] Covid vaccine on August 14. Her ECOG is 1. Past Medical History: Anxiety/depression Chronic back pain Chronic migraine Coronary artery disease Fibromyalgia Gastroesophageal reflux disease Hypertension Hypothyroidism Past Surgical History: Arthroscopic left knee surgery Left breast biopsy for benign disease Removal of cyst from the right breast Right shoulder surgery Influenza Vaccine in 2020 Coronary angioplasty/stent placement in 2016 Colonoscopy in 2011 Allergies: Codeine Sulfate, LevoFLOXacin, and Vicodin. Medications: amLODIPine Besylate 1 Tablet (of 5 mg) Oral daily Amoxicillin-Pot Clavulanate 1 Tablet (of 875-125 mg) Oral daily for 10 days Body/Hair/Skin/Nails 2 Capsule Oral daily Gnlefpsbcf-MOVV-Urcl-Cod 1 (31-272-35-30 mg) Capsule Oral four times a day PRN Xtirmnaijt-CLAI-Omrebkvp 1 Capsule (of 50-325-40 mg) Oral daily PRN Cholecalciferol 2 (1000 Units) Capsule Oral daily Curcumin 95 1 (500 mg) Capsule Oral daily PRN Cymbalta 1 (60 mg) Capsule Delayed Release Particles Oral daily Eliquis 1 Tablet (of 2.5 mg) Oral b.i.d. Flagyl 1 Tablet (of 500 mg) Oral daily Furosemide 1 Tablet (of 20 mg) Oral daily PRN Levothyroxine Sodium 1 (50 mcg) Tablet Oral daily LORazepam 0.5 - 1 (1 mg) Tablet Oral q 4 hours PRN Metoprolol Tartrate 1 Tablet (of 50 mg) Oral daily Multivitamin Adult 1 Tablet Oral daily Nitroglycerin 1 (400 mcg/spray) Aerosol, solution Translingual PRN OxyCODONE HCl 1 (30 mg) Tablet Oral 5x/d PRN Pantoprazole Sodium 1 Tablet (of 40 mg) Tablet, enteric coated Oral daily Potassium Chloride ER 1 Tablet (of 10 meq) Tablet, controlled release Oral daily PRN Pravastatin Sodium 1 (40 mg) Tablet Oral daily Prochlorperazine Maleate 1 (10 mg) Tablet Oral four times a day PRN QUEtiapine Fumarate 2 Tablet (of 25 mg) Oral at bedtime Soma 1 (350 mg) Tablet Oral four times a day PRN Family History: Ms. Armenta's mother is alive: heart disease. Ms. Armenta's father is alive. Mother still living at age 87 and she is in relatively good health. She doesn't know about her biologic father. A brother is quadriplegic from a motor vehicle accident. A sister has bipolar disease. A maternal aunt had bladder cancer and another maternal aunt had ovarian cancer. Social History: Ms. Armenta is and she is retired. Ms. Armenta quit smoking 28 years ago but had smoked for 12 years. She drinks occasionally. Ms. Armenta reports the following support systems: lives alone, supportive family/friends willing to assist with needs, and adequate transportation available for expected visits. Her diet consists of regular meals. She indicates her activity level as: occasional exercise. She has a history of smoking for 25 years, in the range of 1-3 packs of cigarettes daily. She quit smoking in 1989. She has had just occasional alcohol use. Review Of Symptoms: Constitutional Denies fevers, chills, night sweats. She has had fatigue-no better but no worse than last visit. Allergic/Immunologic No reactions. Eyes Denies significant visual changes. No diplopia. No amaurosis. ENMT Denies changes in hearing, mouth sores, difficulty or changes in swallowing ability, and/or sinus drainage. Hematologic/Lymphatic Denies easy bleeding. The patient denies any tender or palpable lymph nodes-intermittent bruising but stable. Respiratory Denies dyspnea on exertion, chest pain, cough or hemoptysis. Denies orthopnea. Cardiovascular Denies anginal chest pain, palpitations or orthopnea. Gastrointestinal Denies nausea, vomiting, diarrhea, GI bleeding, or constipation. Denies change in bowel habits and/or stool color, no heartburn or early satiety. Genitourinary (F) No hematuria, hesitancy, incontinence, vaginal bleeding, discharge or other problems with urination. Musculoskeletal Denies joint swelling or redness. No decreased range of motion. States she is having joint pain off and on, but chronic and stable. Chronic lower back pain. Integumentary Denies chronic rashes, inflammation, ulcerations or skin changes. Neurologic Denies headache, blurred vision, and no areas of focal weakness or numbness. Normal gait. No sensory problems. Psychiatric Denies insomnia, depression, danelle or mood swings. Vital Signs: Performed on Aug 12, 2020 10:42 Height - 66.00 in Weight - 164.2 lbs (LOW) BSA - 1.84 sq.m BMI - 26.50 Temperature - 97.4 F (LOW) Pulse - 78 /min Respiration - 19 /min BP - 169/78 mm(hg) (HIGH) O2 Sat - 97 % Pain - 5,1 - No physically strenuous activity, but ambulatory and able to carry out light or sedentary work (e.g. office work, light house work). (ECOG) Physical Examination: Constitutional Alert, oriented, no acute distress. Skin pink, warm and dry. Head Normocephalic; atraumatic. Eyes Conjunctivae and sclerae are clear and without icterus. Pupils are reactive and equal. ENMT Sinuses are nontender. No oral exudates, ulcers, masses, thrush or mucositis. Tongue normal. Neck Supple without masses or thyromegaly. No jugular venous distension. Hematologic/Lymphatic No petechiae or purpura. Respiratory Lungs are clear to auscultation without rhonchi or wheezing. Cardiovascular Regular rate and rhythm of heart without murmurs,clicks, gallops or rubs. Chest left chest wall venous access device insertion site unremarkable. Breasts Abdomen Non-tender, non-distended, no masses, ascites. Back/Spine Non-tender to palpation. Extremities No visible deformities, no cyanosis, clubbing or edema. Musculoskeletal No tenderness or swelling, normal range of motion without obvious weakness. Integumentary No rashes or lesions. Neurologic No sensory or motor deficits, normal cerebellar function, normal gait. Psychiatric Alert and oriented times three. Coherent speech. Verbalizes understanding of our discussions today. Laboratory:Test performed on Aug 12, 2020 09:40 Sodium 138 mmol/L Potassium 4.1 mmol/L Chloride 102 mmol/L CO2 24 mmol/L Anion Gap 16.1 BUN 9 mg/dL Creatinine 0.7 mg/dL Cr Clearance (Est) 86.0000 mL/min eGFR 82.7 mL/min Glucose 115 mg/dL Osmolality - Calculated 286 mOsm/kg Calcium 9.0 mg/dL Protein, Total 7.9 g/dL Albumin 3.7 g/dL Globulin 4.2 g/dL Bilirubin, Total 0.2 mg/dL ALT (SGPT) 10 U/L AST (SGOT) 13 U/L Alkaline Phosphatase 91 IU/L WBC 2.2 10 3/uL RBC 3.81 10 6/uL HGB 10.8 g/dL HCT 35.0 % MCV 91.9 fL MCH 28.3 pg MCHC 30.9 g/dL RDW 14.5 % Platelet Count 164 10 3/cmm MPV 10.5 fL Neutrophils 1.29 10 3/uL Lymphocytes 0.7 10 3/uL Monocytes 0.1 10 3/uL Eosinophils 0.1 10 3/uL Basophils 0.0 10 3/uL Neutrophil % 57.9 % Lymphocyte % 30.5 % Monocyte % 4.0 % Eosinophil % 4.9 % Basophils % 1.8 % NRBC % 0 % Test performed on Aug 05, 2020 09:35 CBC Slide Review Slide Review Perform SLIDE REVIEW AGREES WITH AUTOMATED RESULTS ST Test performed on Jun 15, 2020 14:52 IgG 2319 mg/dL [place] Free Light Chains 180.7 mg/L Lambda Free Light Chains < 1.5 mg/L IgA 50 mg/dL [place]/Lambda Free Ratio > 120.47 IgM 25 mg/dL Test performed on May 12, 2020 08:45 LDH (Total) 214 U/L Impression: 1. IgG kappa myeloma. Bone marrow aspiration/biopsy on 05/17/2017 showed 32% plasma cells, consistent with myeloma. The FISH panel showed gain of chromosome 1q, deletions of RB 1 and LAMP1, and gain of IG. Her baseline M protein was 2.87 g/dL. She was mildly anemic and she had significantly elevated sedimentation rate. She had normal renal function and negative 24-hour urine protein electrophoresis. Skeletal survey showed no lytic bone involvement. PET/CT and MRI both showed findings suspicious for involvement of the T1 vertebral body. She was not overtly symptomatic with it. 2. Pulmonary emboli diagnosed by CT pulmonary angiogram in October 2019. She began on anticoagulation with apixaban. 3. Hypertension. 4. Hyperlipidemia. 5. Coronary artery disease with angioplasty/stent placement in February 2016. 6. Hypothyroidism. 7. GERD. 8. Degenerative arthritis/degenerative disease of the spine. 9. Fibromyalgia. 10. Anxiety/depression. Plan: 1. IgG kappa myeloma, initially diagnosed in April 2017.. Her FISH panel showed gain of chromosome 1q, deletions of RB 1 and LAMP1, and gain of IG. Her baseline M protein was 2.87 g/dL. She began treatment with Velcade/Revlimid/dexamethasone in August 2017. She had poor tolerance, particularly for the Revlimid. As of May 2018 she began her 10th cycle, though with significant treatment delays and dose reductions. As of continued as July 2018 there was a significant increase in her M protein to 1.4 g/dL and with an increase in her kappa/lambda ratio to 28.90, consistent with disease progression. restaging PET/CT showed only mild FDG activity in the T1 lesion. There were no other areas of FDG uptake, and there was no significant change compared to the prior study in May 2017. She had some response to first-line treatment with Revlimid/Velcade/dexamethasone from August 2017 through May 2018. She tolerated it poorly and she required treatment interruptions and dose reductions. She also showed response to 2nd line therapy with Revlimid/ixazomib/dexamethasone from July 2018 through April 2019. It was put on hold at that point due to persistent neutropenia. She began 3rd line treatment with daratumumab/carfilzomib/dexamethasone in July 2019. She again tolerated it rather poorly, requiring dose attenuations. Her treatment was complicated by pulmonary emboli for which she remains on anticoagulation with apixaban. She did have evidence of response by M protein. However, since February 2020 there has been a gradual increase in her M protein level and in her kappa/lambda ratio, so that she is again showing disease progression. She did have to go onto 4th line treatment regimen with elotuzumab/pomalidomide and began her first cycle on 07/22/2020. A. She will HOLD with cycle 1 day 22 elotuzumab 10 mg/kg and pomalidomide 2 mg day 1 through 21. (She finished 21 days of pomalidomide 2 mg yesterday. Her treatment is holding hold due to neutropenia. Her ANC today is 1300.) B. Today's labs reviewed in detail and discussed with Mrs. Armenta and a copy was given to her. WBC 2.2, hemoglobin 10.8, platelets 164,000, ANC is 1300. Creatinine 0.7 potassium 4.1 random glucose 115 LFTs are normal. Her alk phos is 91. Her IgG per QUIGS on July 21, 2020 was reported at 3448 compared to 2319 on June 15, 2020. Her kappa free light chain on July 21, 2020 was 190.5 and on June 15, 2020 it was 180.7, her lambda free light chain remains at less than 1.5. C. We will plan to see her back in 2 weeks. At that time we will repeat her CBC CMP and myeloma labs. D. SHE WILL HAVE REDUCTION IN THE POMALIDOMIDE to 1 mg daily days 1 through 21 starting with her next cycle. E. Ms. Armenta was instructed to contact us in interim should questions or problems arise. 2. 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 She is now scheduled to see an oral surgeon on August 17, 2020. It should be noted that her myeloma treatment did not include Zometa or other bisphosphonate therapy. 3. Pulmonary emboli diagnosed by CT pulmonary angiogram in October 2019. A. She remains on anticoagulation with apixaban. 4. Chronic pain due to fibromyalgia, degenerative arthritis/disc disease of the spine A. Pain managed with Soma, Lorazepam as needed oxycodone per Dr. Sanchez's written prescription. 5. She is due for her second [place] Covid vaccine on August 14, 2020. She also reports she is due for oral surgery on August 17, 2020. Signed By: Say Castillo-, AOCNP Sean Sanchez MD <<Signature on File>>
== END 2020-08-12 05:46 | disposition home or self-care (01) ==
LOC: ONCMED 05:47
PROVIDERS: PCP Internal Medicine; Visit Provider Nurse Practitioner
DX: C90.00 Multiple myeloma not having achieved remission (principal); D70.1 Agranulocytosis secondary to cancer chemotherapy; T45.1X5A Adverse effect of antineoplastic and immunosuppressive drugs, initial encounter; M79.7 Fibromyalgia; M19.90 Unspecified osteoarthritis, unspecified site; Z86.711 Personal history of pulmonary embolism; Z79.01 Long term (current) use of anticoagulants; Z79.899 Other long term (current) drug therapy; Z87.891 Personal history of nicotine dependence
CPT/HCPCS: 36591; 80053; 85025; 99214

== ENCOUNTER 2020-08-26 06:05 | Outpatient (CLI) | payer MEDICARE, SELFPAY ==
[2020-08-26 10:09] LABS: Basophils # 0.1 10^3/uL (0.0-0.1); Basophils % 1.9 %; Hematocrit 32.9 % (37.0-47.0); Hemoglobin 10.2 g/dL (11.5-15.3); Lymphocytes # 0.9 10^3/uL (0.8-4.8); Lymphocytes % 28.4 %; Mean Corpuscular Hemoglobin 28.2 pg (28.0-34.0); Mean Corpuscular Volume 90.9 fL (81-99); Mean Platelet Volume 9.5 fL (7.4-10.4); Monocytes # 0.1 10^3/uL (0.2-0.9); Monocytes % 2.3 %; Neutrophils # 2.05 10^3/uL (1.8-7.7); Neutrophils % 66.1 %; Nucleated Red Blood Cells % 0 %; Platelet Count 225 10^3/cmm (130-400); Red Blood Count 3.62 10^6/uL (4.1-5.3); Red Cell Distribution Width 14.2 % (12.1-15.1); White Blood Count 3.1 10^3/uL (4.0-10.0)
[2020-08-26 10:27] LABS: Alanine Aminotransferase 10 U/L (0-33); Albumin Level 3.5 g/dL (3.5-5.2); Alkaline Phosphatase 85 IU/L (35-105); Anion Gap 12.8 (5-19); Aspartate Amino Transferase 13 U/L (0-32); Blood Urea Nitrogen 9 mg/dL (8-23); Calcium 8.6 mg/dL (8.5-10.5); Carbon Dioxide 26 mmol/L (22-29); Chloride 98 mmol/L (98-107); Globulin 4.5 g/dL (1.3-4.6); Glomerular Filtration Rate 82.7 mL/min (90-130); Glucose 104 mg/dL (65-115); Immunoglobulin IGG 2556 mg/dL (700-1600); Osmolality Calculated 275 mOsm/kg (285-295); Potassium 3.8 mmol/L (3.5-5.1); Sodium 133 mmol/L (136-145); Total Bilirubin 0.2 mg/dL (0.15-1.2)
[2020-08-26 10:49] LABS: Immunoglobulin IGA < 50 mg/dL (70-400); Immunoglobulin IGM < 25 mg/dL (40-230)
[2020-08-26 10:57] LABS: Slide Review Slide Review Perform
[2020-08-26] MEDS: sodium chloride 0.9% 250 ML IV (12:18)
[2020-08-26] MEDS: acetaminophen 325 mg Tablet 650 MG PO (12:18)
[2020-08-26] MEDS: famotidine 20 mg/2 mL INJ IVP (12:18)
[2020-08-26] MEDS: sodium chloride 0.9% (100 ml) 100 ML 400 ML (12:40)
[2020-08-26] MEDS: diphenhydrAMINE 50 mg/mL SDV 1mL 25 MG IVP (12:40)
[2020-08-27 08:17] LABS: PROTEIN, TOTAL 7.4 g/dL (6.1-8.1)
[2020-08-27 12:03] LABS: ALBUMIN 3.2 g/dL (3.8-4.8); ALPHA 1 GLOBULIN 0.4 g/dL (0.2-0.3); ALPHA 2 GLOBULIN 0.9 g/dL (0.5-0.9); BETA 1 GLOBULIN 0.5 g/dL (0.4-0.6); BETA 2 GLOBULIN 0.2 g/dL (0.2-0.5); GAMMA GLOBULIN 2.1 g/dL (0.8-1.7)
[2020-08-27 15:12] LABS: LAMBDA LIGHT CHAIN, FREE, SERU 2.5 mg/L (5.7-26.3)
--- NOTE | 2020-08-29 15:48 | ONC FU_ITS ---
Dr. Sanchez Patient Follow-Up Note Patient: Karely Armenta Unit #: [id number]: [id number] Dicatated By: Sean Sanchez M.D.Date of Visit:Aug 26, 2020 Onc Med Follow-up/Prog Note Chief Complaint: Myeloma. History of Present Illness: This is a 70 year-old woman with IgG kappa myeloma. She was found to be moderately anemic in December 2016 when she was admitted to the hospital with pneumonia. She also reported having had an illness the preceding summer, in October or November, which may have been tick fever, but that was never confirmed. Her follow-up laboratory studies with Dr. Garcia on 05/03/2017 included CBC showing hemoglobin 11.9 g with white blood cell count 5100 and platelet count 155,000. Her sedimentation rate was significantly elevated at 94 mm/hour. The chem profile showed normal renal function with BUN 13 and creatinine 0.96 mg/dL. Calcium was normal at 9.0 mg/dL. Protein electrophoresis showed a monoclonal protein quantitating at 2.5 g/dL. Immunofixation showed an IgG kappa paraprotein measuring 2.87 g/dL. Hepatits screen was nonreactive to hepatitis C, hepatitis Bs antigen, and hepatitis B core total Ab referral. The hepatitis B surface antibody was < 3.10. LDH was normal at 149 U/L. The beta-2 microglobulin was slightly elevated at 0.420 mg/dL. I had seen her initially on 05/11/2017. Repeat protein electrophoresis with immunofixation prior to that visit, from 05/09/2017, showed IgG kappa monoclonal protein quantitating at 2.87 g/dL. The kappa light chain was elevated at 177.96 mg/L with lambda light chain 1.73 mg/L and kappa/lambda ratio elevated at 102. On her further evaluation there was no monoclonal protein detected in a 24-hour urine specimen. Skeletal survey on 05/11/2017 showed cervical and lumbar spondylosis and bilateral hip joint osteoarthritic changes. There was no radiographic evidence of multiple myeloma. She underwent bone marrow aspiration/biopsy on 05/17/2017. The cellularity was estimated at 70% with 32% plasma cells. Iron stores were noted to be absent. The FISH panel for myeloma showed gain of chromosome 1q, deletions of RB 1 and LAMP1, and gain of IG. The standard chromosome analysis was normal. Overall, the findings were consistent with plasma cell neoplasm/myeloma. Staging PET/CT on 06/03/2017 showed a single FDG avid osteolytic site in the T1 vertebral body which was felt to possibly represent multiple myeloma. She then had further evaluation with MRI of the spine on 07/12/2017. There were significant degenerative changes in the cervical spine which included moderate central canal stenosis at C4-C5, C5-C6, and C7 as well as bilateral nerve root encroachment at C5, C6, and C7. There were also degenerative changes in the lumbar spine with interval STIR signal abnormality and enhancement of T10-L5 spinous processes suggesting possible myelomatous changes. The thoracic spine showed subtle diffuse signal and enhancement abnormality involving the T1 vertebral body. In correlation with the PET/CT findings, this was felt to be suspicious for neoplastic process, including multiple myeloma. There were no actual lytic lesions identified. She began treatment with Velcade/Revlimid/dexamethasone in August 2017. She tolerated it rather poorly, and she did require treatment interruptions and dose reductions, but she idd show evidence for response. As of April 2018, during her 9th cycle, her M protein had declined to 0.84 g/dL. She continued with cycle 10 in May 2018. However, a repeat protein electrophoresis on 07/20/2018 showed an increase in the M protein to 1.4 g/dL. The free light chain assay showed and increase in the free kappa light chain to 83.8 mg/L with elevated kappa/lambda ratio at 28.90. In August 2018 she began second line treatment with Revlimid/ixazomib/dexamethasone. Due to her previous toxicities with Revlimid, it was initiated at a reduced dosage of 10 mg daily on a 21/28 day schedule with ixazomib dosed at 4 mg on days 18 and 15 and the dexamethasone dose at 40 mg weekly. She was able to tolerate it with acceptable toxicity. As of 05/06/2019 her treatment was put on hold due to persistent neutropenia. In May 2019 she had taken a trip to [place], and while she was there she became very ill and required treatment for pneumonia. She returned here for a follow-up visit in June. Her repeat protein electrophoresis on 07/02/2019 showed increase in the M protein to 2.0 g/dL. Her free light chain assay showed increased kappa light chain to 142 mg/L with lambda light chain 2.9 mg/L, and elevated kappa/lambda ratio at 49.38. Restaging PET/CT on 07/13/2019 showed stable findings in the T1 lesion with FDG activity no greater than that of marrow background, consistent with successfully treated disease. There was no evidence of any new lesions. However, with the significant increase in the M protein and in the kappa free light chain, she was recommended to proceed with 3rd line treatment with daratumumab in combination with carfilzomib and dexamethasone. Her baseline echocardiogram showed normal left ventricular function with ejection fraction estimated at 60%. She returned to begin cycle 1 of daratumumab/carfilzomib/dexamethasone on 08/12/2019. The initial infusion of daratumumab was administered in divided doses over 2 days. She tolerated the treatment well. However, her day 8 treatment was complicated by nausea and profuse diaphoresis, which she attributed to the daratumumab. She was able to complete her day 9 carfilzomib treatment. Her day 15/16 treatment was withheld due to a drop in her white blood cell count to 2000 with her ANC at 1000. She did not have fever or other complications. She was given her week 3 daratumumab the following week, but I did opt to split the dosage over 2 days. She tolerated it with no adverse effects. She continued with cycle 2 on 09/11/2019 with the carfilzomib administered at a reduced dosage and with the daratumumab administered in a split dosage. She continued to have anemia, moderately severe neutropenia, and mild thrombocytopenia, but she was able to tolerate the treatment with acceptable toxicity. As of 10/02/2019 the M protein had decreased to 1.1 g/dL. She proceeded with cycle 3 on 10/09/2019. At cycle 3-day 15, on 10/22/2019, her carfilzomib was omitted due to neutropenia, ANC 1400. She did receive her 8th weekly infusion of daratumumab, administered as a single infusion. At that time she also was complaining increased shortness of breath, and a CT pulmonary angiogram showed small filling defects in both the right and left secondary pulmonary arteries consistent with thromboembolic disease. Altered perfusion was seen in those areas. As it did appear to be clinically significant, she was started on anticoagulation with apixaban. She continued with her 4th cycle of treatment on 11/06/2019 with the daratumumab administered at 2-week intervals. At that point her M protein was stable at 1.2 g/dL. The serum free light chain assay, though, did show a decline in her free kappa light chain from 143.7 to 100.6 mg/L. She began cycle 5 on 12/04/2019. Her M protein was down slightly, to 1.1 g/dL. As of 01/01/2020 it had further declined to 0.9 g/dL. She continued with her 6th cycle of treatment, and she then continued with cycle 7 on 02/19/2020 and with cycle 8 on 03/18/2020. At that point her M protein has increased to 1.5 g/dL. In March she underwent a dental extraction/implant procedure. The procedure was complicated by persistent defect in her left upper gum/maxillary bone. She continued with cycle 9 of daratumumab/carfilzomib/dexamethasone on 04/15/2020. She then received a scheduled infusion of daratumumab on 05/12/2020. Her repeat protein electrophoresis at that time showed further increase in the M protein to 2.1 g/dL. Her treatment was put on hold. Her other medical illnesses include hypertension, hyperlipidemia, coronary artery disease, hypothyroidism, GERD, fibromyalgia, degenerative arthritis, and anxiety/depression. Her surgical/procedural history includes coronary angioplasty/stent placement 2015. She has arthroscopic left knee surgery, and she also has had surgery on the right shoulder. She has history of smoking for 25 years, from 1-3 packs of cigarettes daily. She quit smoking in 1989. She has had just occasional alcohol use. She is Nondenominational, and she will not accept blood products. INTERIM HISTORY: On 07/21/2020 she began further treatment with pomalidomide in combination with elotuzumab and dexamethasone. In view of the side effects she had experienced with lenalidomide, the pomalidomide was started at a reduced dosage (2 mg) administered on a -day schedule. She is seen for a follow-up visit. She has now completed 1 cycle of treatment. She has not been feeling very good generally. She says she has been really tired, though she is still doing light work. ECOG score is 1. Her appetite has not been very good. Her weight is down a little. She has not had fever. She reports that she has been sweating diffusely both during the daytime and at night. She has allergy related sinus symptoms for which she is using Flonase and also taking Benadryl. She still has sore mouth associated with her dental surgery. She has a little bit of cough. Her breathing has been okay. She has had occasional episodes of chest pain. They tend to wake her up at night. She has occasional upset stomach and she has been having some acid reflux. Bowel and bladder function have been okay. She continues to have pain in her lower back and also in her neck and shoulders. She has had a few headaches. She also has had some dizziness. She has no numbness/paresthesia or other focal neurologic symptoms. Medications: amLODIPine Besylate 1 Tablet (of 5 mg) Oral daily, Amoxicillin-Pot Clavulanate 1 Tablet (of 875-125 mg) Oral daily for 10 days, Body/Hair/Skin/Nails 2 Capsule Oral daily, Daycinziwr-UHQB-Toir-Cod 1 (65-962-00-30 mg) Capsule Oral four times a day PRN, Blsveujhen-JQBN-Dewmxpgy 1 Capsule (of 50-325-40 mg) Oral daily PRN, Cholecalciferol 2 (1000 Units) Capsule Oral daily, Curcumin 95 1 (500 mg) Capsule Oral daily PRN, Cymbalta 1 (60 mg) Capsule Delayed Release Particles Oral daily, Eliquis 1 Tablet (of 2.5 mg) Oral b.i.d., Flagyl 1 Tablet (of 500 mg) Oral daily, Furosemide 1 Tablet (of 20 mg) Oral daily PRN, Levothyroxine Sodium 1 (50 mcg) Tablet Oral daily, LORazepam 0.5 - 1 (1 mg) Tablet Oral q 4 hours PRN, Metoprolol Tartrate 1 Tablet (of 50 mg) Oral daily, Multivitamin Adult 1 Tablet Oral daily, Nitroglycerin 1 (400 mcg/spray) Aerosol, solution Translingual PRN, OxyCODONE HCl 1 (30 mg) Tablet Oral 5x/d PRN, Pantoprazole Sodium 1 Tablet (of 40 mg) Tablet, enteric coated Oral daily, Potassium Chloride ER 1 Tablet (of 10 meq) Tablet, controlled release Oral daily PRN, Pravastatin Sodium 1 (40 mg) Tablet Oral daily, Prochlorperazine Maleate 1 (10 mg) Tablet Oral four times a day PRN, QUEtiapine Fumarate 2 Tablet (of 25 mg) Oral at bedtime, Soma 1 (350 mg) Tablet Oral four times a day PRN Allergies: Codeine Sulfate, LevoFLOXacin, and Vicodin. Vital Signs: Performed on Aug 26, 2020 10:11 Height - 66.00 in Weight - 161.4 lbs (LOW) BSA - 1.83 sq.m BMI - 26.05 Temperature - 98.0 F (LOW) Pulse - 75 /min Respiration - 18 /min BP - 128/66 mm(hg) O2 Sat - 97 % Pain - 5 Fatigue - 10 Physical Examination: Constitutional - She looks pretty good generally, Eyes - Sclerae nonicteric. Conjunctivae clear, ENMT - There are still sutures in place in the upper gum on the left side. There is some discoloration in the surrounding mucosa. There are no other lesions noted in the oral cavity, Hematologic/Lymphatic - No cervical, clavicular, or axillary adenopathy, Respiratory - Lungs are clear with good air movement bilaterally, Cardiovascular - Heart rhythm is regular. There is no murmur, gallop, or rub noted, Abdomen - Soft. Liver and spleen are not enlarged. There is no abdominal mass or ascites noted and there is no inguinal adenopathy, Extremities - No edema, Neurologic - No focal neurologic deficits noted. Lab/Imaging: Test performed on Aug 26, 2020 09:06 Sodium 133 mmol/L Potassium 3.8 mmol/L Chloride 98 mmol/L CO2 26 mmol/L Anion Gap 12.8 BUN 9 mg/dL Creatinine 0.7 mg/dL Cr Clearance (Est) 86.0000 mL/min eGFR 82.7 mL/min Glucose 104 mg/dL Osmolality - Calculated 275 mOsm/kg Calcium 8.6 mg/dL Protein, Total 8.0 g/dL Albumin 3.5 g/dL Globulin 4.5 g/dL Bilirubin, Total 0.2 mg/dL ALT (SGPT) 10 U/L AST (SGOT) 13 U/L Alkaline Phosphatase 85 IU/L WBC 3.1 10 3/uL RBC 3.62 10 6/uL HGB 10.2 g/dL HCT 32.9 % MCV 90.9 fL MCH 28.2 pg MCHC 31.0 g/dL RDW 14.2 % Platelet Count 225 10 3/cmm MPV 9.5 fL Neutrophils 2.05 10 3/uL Lymphocytes 0.9 10 3/uL Monocytes 0.1 10 3/uL Eosinophils 0.0 10 3/uL Basophils 0.1 10 3/uL Neutrophil % 66.1 % Lymphocyte % 28.4 % Monocyte % 2.3 % Eosinophil % 1.0 % Basophils % 1.9 % NRBC % 0 % CBC Slide Review Slide Review Perform IgG 2556 mg/dL [place] Free Light Chains 236.0 mg/L Lambda Free Light Chains 2.5 mg/L IgA < 50 mg/dL [place]/Lambda Free Ratio 94.40 IgM < 25 mg/dL Problem List: 1. IgG kappa myeloma. Bone marrow aspiration/biopsy on 05/17/2017 showed 32% plasma cells, consistent with myeloma. The FISH panel showed gain of chromosome 1q, deletions of RB 1 and LAMP1, and gain of IG. Her baseline M protein was 2.87 g/dL. She was mildly anemic and she had significantly elevated sedimentation rate. She had normal renal function and negative 24-hour urine protein electrophoresis. Skeletal survey showed no lytic bone involvement. PET/CT and MRI both showed findings suspicious for involvement of the T1 vertebral body. She was not overtly symptomatic with it. 2. Pulmonary emboli diagnosed by CT pulmonary angiogram in October 2019. She has been on anticoagulation with apixaban. 3. Hypertension. 4. Hyperlipidemia. 5. Coronary artery disease with angioplasty/stent placement in February 2016. 6. Hypothyroidism. 7. GERD. 8. Degenerative arthritis/degenerative disease of the spine. 9. Fibromyalgia. 10. Anxiety/depression. Problems Addressed with this Encounter and Plan: 1. Patient with IgG kappa myeloma, initially diagnosed in April 2017.. Her FISH panel showed gain of chromosome 1q, deletions of RB 1 and LAMP1, and gain of IG. Her baseline M protein was 2.87 g/dL. She was considered transplant ineligible due to being Nondenominational and not willing to accept transfusion. She had some response to 1st-line treatment with Revlimid/Velcade/dexamethasone from August 2017 through May 2018. However, she tolerated it poorly, and she had required treatment interruptions and dose reductions. As of July 2018 there was a significant increase in her M protein to 1.4 g/dL and an increase in her kappa/lambda ratio to 28.90, consistent with disease progression. Restaging PET/CT showed only mild FDG activity in the T1 lesion. There were no other areas of FDG uptake, and there was no significant change compared to the prior study in May 2017. She then began 2nd line therapy with Revlimid/ixazomib/dexamethasone in July 2018, continued through April 2019. She again did have some response, but it was put on hold at that point due to persistent neutropenia. She began 3rd line treatment with daratumumab/carfilzomib/dexamethasone in July 2019. She again tolerated it rather poorly, requiring dose attenuations. Her treatment was complicated by pulmonary emboli for which she began on anticoagulation with apixaban. She did have evidence of response by M protein. However, since February 2020 there was a gradual increase in her M protein level and in her kappa/lambda ratio, so that she was again showing disease progression. On 07/21/2020 she began on 4th line treatment with pomalidomide in combination with elotuzumab and dexamethasone, but with pomalidomide administered at a reduced dosage due to prior toxicities she had experienced with lenalidomide. She has had some increase in fatigue with this treatment, but during this time she also has had some ongoing issues related to complications associated with dental procedures. Has her blood counts are adequate, she will proceed with her second cycle of treatment. The dosages will remain the same. Blood counts will be monitored weekly. She will be scheduled for a follow-up visit in 2 weeks. 2. 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 She has required further dental procedures. It should be noted that her myeloma treatment has not included Zometa or other bisphosphonate therapy. 3. Pulmonary emboli diagnosed by CT pulmonary angiogram in October 2019. She remains on anticoagulation with apixaban. Signed By: Sean Sanchez M.D. <<Signature on File>>
== END 2020-08-26 06:06 | disposition home or self-care (01) ==
LOC: ONCMED 06:07
PROVIDERS: PCP Internal Medicine; Visit Provider Internal Medicine Medical Oncology
DX: C90.00 Multiple myeloma not having achieved remission (principal); M89.9 Disorder of bone, unspecified; R53.83 Other fatigue; Z86.711 Personal history of pulmonary embolism; Z79.01 Long term (current) use of anticoagulants
CPT/HCPCS: 80053; 82784; 83883; 84155; 84165; 85025; 96367; 96375; 96413; 99214; J1100; J1200; J3490; J7050; J9176

== ENCOUNTER 2020-09-02 07:49 | Outpatient (CLI) | payer MEDICARE, SELFPAY ==
[2020-09-02 09:35] LABS: Basophils % 0.9 %; Eosinophils # 0.1 10^3/uL (0.0-0.8); Eosinophils % 1.8 %; Hematocrit 33.4 % (37.0-47.0); Hemoglobin 10.4 g/dL (11.5-15.3); Lymphocytes # 0.8 10^3/uL (0.8-4.8); Lymphocytes % 18.2 %; Mean Corpuscular HGB Conc 31.1 g/dL (30.0-36.0); Mean Corpuscular Volume 89.8 fL (81-99); Mean Platelet Volume 10.4 fL (7.4-10.4); Monocytes # 0.1 10^3/uL (0.2-0.9); Monocytes % 1.3 %; Neutrophils # 3.49 10^3/uL (1.8-7.7); Neutrophils % 77.4 %; Nucleated Red Blood Cells % 0 %; Platelet Count 227 10^3/cmm (130-400); Red Blood Count 3.72 10^6/uL (4.1-5.3); Red Cell Distribution Width 14.8 % (12.1-15.1); White Blood Count 4.5 10^3/uL (4.0-10.0)
[2020-09-02 10:15] LABS: Slide Review Slide Review Perform
[2020-09-02] MEDS: acetaminophen 325 mg Tablet 650 MG PO (10:55)
[2020-09-02] MEDS: famotidine 20 mg/2 mL INJ IVP (10:57)
[2020-09-02] MEDS: sodium chloride 0.9% 250 ML 999 ML IV (10:57)
[2020-09-02] MEDS: sodium chloride 0.9% (100 ml) 100 ML 400 ML (10:59)
[2020-09-02] MEDS: diphenhydrAMINE 50 mg/mL SDV 1mL 25 MG IV (10:59)
== END 2020-09-02 07:50 | disposition home or self-care (01) ==
LOC: ONCMED 07:53
PROVIDERS: PCP Internal Medicine; Visit Provider Internal Medicine Medical Oncology
DX: Z51.11 Encounter for antineoplastic chemotherapy (principal); C90.00 Multiple myeloma not having achieved remission; D47.2 Monoclonal gammopathy; D70.1 Agranulocytosis secondary to cancer chemotherapy; T45.1X5A Adverse effect of antineoplastic and immunosuppressive drugs, initial encounter
CPT/HCPCS: 85025; 96367; 96375; 96413; J1100; J1200; J3490; J7050; J9176

== ENCOUNTER 2020-09-09 06:18 | Outpatient (CLI) | payer MEDICARE, SELFPAY ==
[2020-09-09 09:07] LABS: Basophils % 1.2 %; Eosinophils # 0.3 10^3/uL (0.0-0.8); Eosinophils % 10.3 %; Hematocrit 32.7 % (37.0-47.0); Hemoglobin 10.1 g/dL (11.5-15.3); Lymphocytes % 41.1 %; Mean Corpuscular HGB Conc 30.9 g/dL (30.0-36.0); Mean Corpuscular Hemoglobin 28.1 pg (28.0-34.0); Mean Corpuscular Volume 91.1 fL (81-99); Mean Platelet Volume 10.3 fL (7.4-10.4); Monocytes # 0.2 10^3/uL (0.2-0.9); Monocytes % 6.7 %; Neutrophils # 1.03 10^3/uL (1.8-7.7); Neutrophils % 40.7 %; Nucleated Red Blood Cells % 0 %; Platelet Count 166 10^3/cmm (130-400); Red Blood Count 3.59 10^6/uL (4.1-5.3); Red Cell Distribution Width 15.4 % (12.1-15.1); White Blood Count 2.5 10^3/uL (4.0-10.0)
[2020-09-09 09:52] LABS: Alanine Aminotransferase 11 U/L (0-33); Albumin Level 3.4 g/dL (3.5-5.2); Alkaline Phosphatase 77 IU/L (35-105); Anion Gap 10.1 (5-19); Aspartate Amino Transferase 16 U/L (0-32); Blood Urea Nitrogen 7 mg/dL (8-23); Carbon Dioxide 25 mmol/L (22-29); Chloride 104 mmol/L (98-107); Globulin 3.9 g/dL (1.3-4.6); Glomerular Filtration Rate 82.7 mL/min (90-130); Glucose 119 mg/dL (65-115); Osmolality Calculated 279 mOsm/kg (285-295); Potassium 4.1 mmol/L (3.5-5.1); Sodium 135 mmol/L (136-145); Total Bilirubin 0.2 mg/dL (0.15-1.2); Total Protein 7.3 g/dL (6.6-8.7)
[2020-09-09 10:02] LABS: Slide Review Slide Review Perform
--- NOTE | 2020-09-22 09:11 | ONC FU_ITS ---
[facility] Patient Note Patient: Karely Armenta Unit #: [id number]: 1950 Dictated By: Say CastilloDate of Visit: Sep 09, 2020 Onc MED Follow-Up/Prog Note Chief Complaint: Myeloma. History of Present Illness: Ms Armenta is a 70 year-old woman with IgG kappa myeloma. She was found to be moderately anemic in December 2016 when she was admitted to the hospital with pneumonia. She also reported having had an illness the preceding summer, in October or November, which may have been tick fever, but that was never confirmed. Her follow-up laboratory studies with Dr. Garcia on 05/03/2017 included CBC showing hemoglobin 11.9 g with white blood cell count 5100 and platelet count 155,000. Her sedimentation rate was significantly elevated at 94 mm/hour. The chem profile showed normal renal function with BUN 13 and creatinine 0.96 mg/dL. Calcium was normal at 9.0 mg/dL. Protein electrophoresis showed a monoclonal protein quantitating at 2.5 g/dL. Immunofixation showed an IgG kappa paraprotein measuring 2.87 g/dL. Hepatits screen was nonreactive to hepatitis C, hepatitis Bs antigen, and hepatitis B core total Ab referral. The hepatitis B surface antibody was < 3.10. LDH was normal at 149 U/L. The beta-2 microglobulin was slightly elevated at 0.420 mg/dL. Dr Sanchez had seen her initially on 05/11/2017. Repeat protein electrophoresis with immunofixation prior to that visit, from 05/09/2017, showed IgG kappa monoclonal protein quantitating at 2.87 g/dL. The kappa light chain was elevated at 177.96 mg/L with lambda light chain 1.73 mg/L and kappa/lambda ratio elevated at 102. On her further evaluation there was no monoclonal protein detected in a 24-hour urine specimen. Skeletal survey on 05/11/2017 showed cervical and lumbar spondylosis and bilateral hip joint osteoarthritic changes. There was no radiographic evidence of multiple myeloma. She underwent bone marrow aspiration/biopsy on 05/17/2017. The cellularity was estimated at 70% with 32% plasma cells. Iron stores were noted to be absent. The FISH panel for myeloma showed gain of chromosome 1q, deletions of RB 1 and LAMP1, and gain of IG. The standard chromosome analysis was normal. Overall, the findings were consistent with plasma cell neoplasm/myeloma. Staging PET/CT on 06/03/2017 showed a single FDG avid osteolytic site in the T1 vertebral body which was felt to possibly represent multiple myeloma. She then had further evaluation with MRI of the spine on 07/12/2017. There were significant degenerative changes in the cervical spine which included moderate central canal stenosis at C4-C5, C5-C6, and C7 as well as bilateral nerve root encroachment at C5, C6, and C7. There were also degenerative changes in the lumbar spine with interval STIR signal abnormality and enhancement of T10-L5 spinous processes suggesting possible myelomatous changes. The thoracic spine showed subtle diffuse signal and enhancement abnormality involving the T1 vertebral body. In correlation with the PET/CT findings, this was felt to be suspicious for neoplastic process, including multiple myeloma. There were no actual lytic lesions identified. She began treatment with Velcade/Revlimid/dexamethasone in August 2017. She tolerated it rather poorly, and she did require treatment interruptions and dose reductions, but she idd show evidence for response. As of April 2018, during her 9th cycle, her M protein had declined to 0.84 g/dL. She continued with cycle 10 in May 2018. However, a repeat protein electrophoresis on 07/20/2018 showed an increase in the M protein to 1.4 g/dL. The free light chain assay showed and increase in the free kappa light chain to 83.8 mg/L with elevated kappa/lambda ratio at 28.90. In August 2018 she began second line treatment with Revlimid/ixazomib/dexamethasone. Due to her previous toxicities with Revlimid, it was initiated at a reduced dosage of 10 mg daily on a 21/28 day schedule with ixazomib dosed at 4 mg on days 18 and 15 and the dexamethasone dose at 40 mg weekly. She was able to tolerate it with acceptable toxicity. As of 05/06/2019 her treatment was put on hold due to persistent neutropenia. In May 2019 she had taken a trip to [place], and while she was there she became very ill and required treatment for pneumonia. She returned here for a follow-up visit in June. Her repeat protein electrophoresis on 07/02/2019 showed increase in the M protein to 2.0 g/dL. Her free light chain assay showed increased kappa light chain to 142 mg/L with lambda light chain 2.9 mg/L, and elevated kappa/lambda ratio at 49.38. Restaging PET/CT on 07/13/2019 showed stable findings in the T1 lesion with FDG activity no greater than that of marrow background, consistent with successfully treated disease. There was no evidence of any new lesions. However, with the significant increase in the M protein and in the kappa free light chain, she was recommended to proceed with 3rd line treatment with daratumumab in combination with carfilzomib and dexamethasone. Her baseline echocardiogram showed normal left ventricular function with ejection fraction estimated at 60%. She returned to begin cycle 1 of daratumumab/carfilzomib/dexamethasone on 08/12/2019. The initial infusion of daratumumab was administered in divided doses over 2 days. She tolerated the treatment well. However, her day 8 treatment was complicated by nausea and profuse diaphoresis, which she attributed to the daratumumab. She was able to complete her day 9 carfilzomib treatment. Her day 15/16 treatment was withheld due to a drop in her white blood cell count to 2000 with her ANC at 1000. She did not have fever or other complications. She was given her week 3 daratumumab the following week, but I did opt to split the dosage over 2 days. She tolerated it with no adverse effects. She continued with cycle 2 on 09/11/2019 with the carfilzomib administered at a reduced dosage and with the daratumumab administered in a split dosage. She continued to have anemia, moderately severe neutropenia, and mild thrombocytopenia, but she was able to tolerate the treatment with acceptable toxicity. As of 10/02/2019 the M protein had decreased to 1.1 g/dL. She proceeded with cycle 3 on 10/09/2019. At cycle 3-day 15, on 10/22/2019, her carfilzomib was omitted due to neutropenia, ANC 1400. She did receive her 8th weekly infusion of daratumumab, administered as a single infusion. At that time she also was complaining increased shortness of breath, and a CT pulmonary angiogram showed small filling defects in both the right and left secondary pulmonary arteries consistent with thromboembolic disease. Altered perfusion was seen in those areas. As it did appear to be clinically significant, she was started on anticoagulation with apixaban. She continued with her 4th cycle of treatment on 11/06/2019 with the daratumumab administered at 2-week intervals. At that point her M protein was stable at 1.2 g/dL. The serum free light chain assay, though, did show a decline in her free kappa light chain from 143.7 to 100.6 mg/L. She began cycle 5 on 12/04/2019. Her M protein was down slightly, to 1.1 g/dL. As of 01/01/2020 it had further declined to 0.9 g/dL. She continued with her 6th cycle of treatment, and she then continued with cycle 7 on 02/19/2020 and with cycle 8 on 03/18/2020. At that point her M protein has increased to 1.5 g/dL. In March she underwent a dental extraction/implant procedure. The procedure was complicated by persistent defect in her left upper gum/maxillary bone. She continued with cycle 9 of daratumumab/carfilzomib/dexamethasone on 04/15/2020. She then received a scheduled infusion of daratumumab on 05/12/2020. Her repeat protein electrophoresis at that time showed further increase in the M protein to 2.1 g/dL. Her treatment was put on hold. Her other medical illnesses include hypertension, hyperlipidemia, coronary artery disease, hypothyroidism, GERD, fibromyalgia, degenerative arthritis, and anxiety/depression. Her surgical/procedural history includes coronary angioplasty/stent placement 2015. She has arthroscopic left knee surgery, and she also has had surgery on the right shoulder. She has history of smoking for 25 years, from 1-3 packs of cigarettes daily. She quit smoking in 1989. She has had just occasional alcohol use. She is Voodoo, and she will not accept blood products. INTERIM HISTORY: On 07/21/2020 she began further treatment with pomalidomide in combination with elotuzumab and dexamethasone. In view of the side effects she had experienced with lenalidomide, the pomalidomide was started at a reduced dosage (2 mg) administered on a 21/28-day schedule. Mrs. Alvarado is here today for follow-up. She is due for day 15 elotuzumab. She is currently on pomalidomide 2 mg. She has no new concerns today. She states overall she is tired and draggy but has been more active. She is planning on going to [place] soon to do some evaluation on her house that she has building there. She needs to do some planning with the contractors. She denies any fever or chills. She denies any new shortness of breath orthopnea. She denies chest pain or palpitations. She states her appetite is good. Her energy is still marginal but she feels that with her activity her energy is getting better. She denies any diarrhea or constipation. She denies any urinary symptoms. She does not have any peripheral neuropathy symptoms at this time. Her ECOG is 1. Past Medical History: Anxiety/depression Chronic back pain Chronic migraine Coronary artery disease Fibromyalgia Gastroesophageal reflux disease Hypertension Hypothyroidism Past Surgical History: Arthroscopic left knee surgery Left breast biopsy for benign disease Removal of cyst from the right breast Right shoulder surgery Covid vaccine #2 in 2020 Covid vaccine #1 in 2020 Influenza Vaccine in 2019 Coronary angioplasty/stent placement in 2016 Colonoscopy in 2011 Allergies: Codeine Sulfate, LevoFLOXacin, and Vicodin. Medications: amLODIPine Besylate 1 Tablet (of 5 mg) Oral daily Amoxicillin-Pot Clavulanate 1 Tablet (of 875-125 mg) Oral daily for 10 days Body/Hair/Skin/Nails 2 Capsule Oral daily Aoduxghvii-XYDN-Kask-Cod 1 (50-522-72-30 mg) Capsule Oral four times a day PRN Ohmgxzhkie-NKTC-Pnvtpqlf 1 Capsule (of 50-325-40 mg) Oral daily PRN Cholecalciferol 2 (1000 Units) Capsule Oral daily Curcumin 95 1 (500 mg) Capsule Oral daily PRN Cymbalta 1 (60 mg) Capsule Delayed Release Particles Oral daily Eliquis 1 Tablet (of 2.5 mg) Oral b.i.d. Flagyl 1 Tablet (of 500 mg) Oral daily Furosemide 1 Tablet (of 20 mg) Oral daily PRN Levothyroxine Sodium 1 (50 mcg) Tablet Oral daily LORazepam 0.5 - 1 (1 mg) Tablet Oral q 4 hours PRN Metoprolol Tartrate 1 Tablet (of 50 mg) Oral daily Multivitamin Adult 1 Tablet Oral daily Nitroglycerin 1 (400 mcg/spray) Aerosol, solution Translingual PRN OxyCODONE HCl 1 (30 mg) Tablet Oral 5x/d PRN Pantoprazole Sodium 1 Tablet (of 40 mg) Tablet, enteric coated Oral daily Potassium Chloride ER 1 Tablet (of 10 meq) Tablet, controlled release Oral daily PRN Pravastatin Sodium 1 (40 mg) Tablet Oral daily Prochlorperazine Maleate 1 (10 mg) Tablet Oral four times a day PRN QUEtiapine Fumarate 2 Tablet (of 25 mg) Oral at bedtime Soma 1 (350 mg) Tablet Oral four times a day PRN Family History: Ms. Armenta's mother is alive: heart disease. Ms. Armenta's father is alive. Mother still living at age 87 and she is in relatively good health. She doesn't know about her biologic father. A brother is quadriplegic from a motor vehicle accident. A sister has bipolar disease. A maternal aunt had bladder cancer and another maternal aunt had ovarian cancer. Social History: Ms. Armenta is and she is retired. Ms. Armenta quit smoking 28 years ago but had smoked for 12 years. She drinks occasionally. Ms. Armenta reports the following support systems: lives alone, supportive family/friends willing to assist with needs, and adequate transportation available for expected visits. Her diet consists of regular meals. She indicates her activity level as: occasional exercise. She has a history of smoking for 25 years, in the range of 1-3 packs of cigarettes daily. She quit smoking in 1989. She has had just occasional alcohol use. Review Of Symptoms: See above Vital Signs: Performed on Sep 09, 2020 10:32 Height - 66.00 in Weight - 165.6 lbs (HIGH) BSA - 1.85 sq.m BMI - 26.73 Temperature - 98.2 F (LOW) Pulse - 81 /min Respiration - 18 /min BP - 114/65 mm(hg) O2 Sat - 94 % (LOW) Pain - 7 Fatigue - 5,1 - No physically strenuous activity, but ambulatory and able to carry out light or sedentary work (e.g. office work, light house work). (ECOG) Physical Examination: Constitutional Alert, oriented, no acute distress. Skin pink, warm and dry. Head Normocephalic; atraumatic. Eyes Conjunctivae and sclerae are clear and without icterus. Pupils are reactive and equal. Hematologic/Lymphatic No petechiae or purpura. Respiratory Lungs are clear to auscultation without rhonchi or wheezing. Cardiovascular Regular rate and rhythm of heart without murmurs,clicks, gallops or rubs. Chest left chest wall venous access device insertion site unremarkable. Back/Spine Non-tender to palpation. Extremities No visible deformities, no cyanosis, clubbing or edema. Musculoskeletal No tenderness or swelling, normal range of motion without obvious weakness. Integumentary No rashes or lesions. Neurologic No sensory or motor deficits, normal cerebellar function, normal gait. Psychiatric Alert and oriented times three. Coherent speech. Verbalizes understanding of our discussions today. Laboratory:Test performed on Sep 09, 2020 08:51 Sodium 135 mmol/L Potassium 4.1 mmol/L Chloride 104 mmol/L CO2 25 mmol/L Anion Gap 10.1 BUN 7 mg/dL Creatinine 0.7 mg/dL Cr Clearance (Est) 86.0000 mL/min eGFR 82.7 mL/min Glucose 119 mg/dL Osmolality - Calculated 279 mOsm/kg Calcium 8.0 mg/dL Protein, Total 7.3 g/dL Albumin 3.4 g/dL Globulin 3.9 g/dL Bilirubin, Total 0.2 mg/dL ALT (SGPT) 11 U/L AST (SGOT) 16 U/L Alkaline Phosphatase 77 IU/L WBC 2.5 10 3/uL RBC 3.59 10 6/uL HGB 10.1 g/dL HCT 32.7 % MCV 91.1 fL MCH 28.1 pg MCHC 30.9 g/dL RDW 15.4 % Platelet Count 166 10 3/cmm MPV 10.3 fL Neutrophils 1.03 10 3/uL Lymphocytes 1.0 10 3/uL Monocytes 0.2 10 3/uL Eosinophils 0.3 10 3/uL Basophils 0.0 10 3/uL Neutrophil % 40.7 % Lymphocyte % 41.1 % Monocyte % 6.7 % Eosinophil % 10.3 % Basophils % 1.2 % NRBC % 0 % CBC Slide Review Slide Review Perform SLIDE REVIEW AGREES WITH AUTOMATED RESULTS ST Test performed on Aug 26, 2020 09:06 IgG 2556 mg/dL Atco Free Light Chains 236.0 mg/L Lambda Free Light Chains 2.5 mg/L IgA < 50 mg/dL Atco/Lambda Free Ratio 94.40 IgM < 25 mg/dL Test performed on May 12, 2020 08:45 LDH (Total) 214 U/L Impression: 1. IgG kappa myeloma. Bone marrow aspiration/biopsy on 05/17/2017 showed 32% plasma cells, consistent with myeloma. The FISH panel showed gain of chromosome 1q, deletions of RB 1 and LAMP1, and gain of IG. Her baseline M protein was 2.87 g/dL. She was mildly anemic and she had significantly elevated sedimentation rate. She had normal renal function and negative 24-hour urine protein electrophoresis. Skeletal survey showed no lytic bone involvement. PET/CT and MRI both showed findings suspicious for involvement of the T1 vertebral body. She was not overtly symptomatic with it. 2. Pulmonary emboli diagnosed by CT pulmonary angiogram in October 2019. She has been on anticoagulation with apixaban. 3. Hypertension. 4. Hyperlipidemia. 5. Coronary artery disease with angioplasty/stent placement in February 2016. 6. Hypothyroidism. 7. GERD. 8. Degenerative arthritis/degenerative disease of the spine. 9. Fibromyalgia. 10. Anxiety/depression. Plan: PROBLEMS ADDRESSED TODAY 1. IgG kappa myeloma, initially diagnosed in April 2017.. Her FISH panel showed gain of chromosome 1q, deletions of RB 1 and LAMP1, and gain of IG. Her baseline M protein was 2.87 g/dL. She was considered transplant ineligible due to being Voodoo and not willing to accept transfusion. She had some response to 1st-line treatment with Revlimid/Velcade/dexamethasone from August 2017 through May 2018. However, she tolerated it poorly, and she had required treatment interruptions and dose reductions. As of July 2018 there was a significant increase in her M protein to 1.4 g/dL and an increase in her kappa/lambda ratio to 28.90, consistent with disease progression. Restaging PET/CT showed only mild FDG activity in the T1 lesion. There were no other areas of FDG uptake, and there was no significant change compared to the prior study in May 2017. She then began 2nd line therapy with Revlimid/ixazomib/dexamethasone in July 2018, continued through April 2019. She again did have some response, but it was put on hold at that point due to persistent neutropenia. She began 3rd line treatment with daratumumab/carfilzomib/dexamethasone in July 2019. She again tolerated it rather poorly, requiring dose attenuations. Her treatment was complicated by pulmonary emboli for which she began on anticoagulation with apixaban. She did have evidence of response by M protein. However, since February 2020 there was a gradual increase in her M protein level and in her kappa/lambda ratio, so that she was again showing disease progression. On 07/21/2020 she began on 4th line treatment with pomalidomide in combination with elotuzumab and dexamethasone, but with pomalidomide administered at a reduced dosage due to prior toxicities she had experienced with lenalidomide. She has had some increase in fatigue with this treatment, but during this time she also has had some ongoing issues related to complications associated with dental procedures. Her last chemotherapy was on September 02, 2020 for day 8 elotuzumab. Her ANC at that time was 3500. A. She will hold her pomalidomide 2 mg and we will delay the elotuzumab today due to an ANC of 1000. B. Today's labs reviewed in detail discussed with Mrs. Alvarado and a copy was given to her. WBC 2.5, hemoglobin 10.1, platelets 166,000 ANC is 1000. Potassium 4.1, random glucose 119 creatinine 0.7 LFTs are normal. C. We will plan to recheck her blood counts in 1 week but most likely she will just hold treatment to her return from [place]. She has been dose reduced on the pomalidomide down to 2 mg. 2. 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 She has required further dental procedures. It should be noted that her myeloma treatment has not included Zometa or other bisphosphonate therapy. 3. Pulmonary emboli diagnosed by CT pulmonary angiogram in October 2019. A. She remains on anticoagulation with apixaban. 4. Follow-up plan A. We will check her CBC again in 1 week. B. She has a follow-up already scheduled for 1 month after her appointment on August 26. She will repeat her myeloma labs CBC CMP at that time as well. C. Mrs. Alvarado has been instructed to contact us in interim should questions or problems arise. D. She is advised to do neutropenic precautions as well as make sure she does have an antibiotic on hand when she travels to [place]. Signed By: Say Castillo-[place], [facility] Sean Sanchez MD <<Signature on File>>
== END 2020-09-09 06:19 | disposition home or self-care (01) ==
PROVIDERS: PCP Internal Medicine; Visit Provider Nurse Practitioner
DX: C90.00 Multiple myeloma not having achieved remission (principal); I26.99 Other pulmonary embolism without acute cor pulmonale; Z79.01 Long term (current) use of anticoagulants; I10 Essential (primary) hypertension; E78.5 Hyperlipidemia, unspecified; I25.10 Atherosclerotic heart disease of native coronary artery without angina pectoris; Z95.5 Presence of coronary angioplasty implant and graft; E03.9 Hypothyroidism, unspecified; K21.9 Gastro-esophageal reflux disease without esophagitis; M47.9 Spondylosis, unspecified; M79.7 Fibromyalgia; F41.9 Anxiety disorder, unspecified; F32.9 Major depressive disorder, single episode, unspecified; Z79.899 Other long term (current) drug therapy
CPT/HCPCS: 36591; 80053; 85025; 99214

== ENCOUNTER 2020-09-16 09:02 | Outpatient (CLI) | payer MEDICARE, SELFPAY ==
[2020-09-16 10:07] LABS: Basophils % 0.8 %; Eosinophils # 0.1 10^3/uL (0.0-0.8); Eosinophils % 2.1 %; Hematocrit 30.5 % (37.0-47.0); Hemoglobin 9.5 g/dL (11.5-15.3); Lymphocytes # 1.2 10^3/uL (0.8-4.8); Mean Corpuscular HGB Conc 31.1 g/dL (30.0-36.0); Mean Corpuscular Hemoglobin 27.7 pg (28.0-34.0); Mean Corpuscular Volume 88.9 fL (81-99); Mean Platelet Volume 11.6 fL (7.4-10.4); Monocytes # 0.1 10^3/uL (0.2-0.9); Monocytes % 5.8 %; Neutrophils % 40.3 %; Nucleated Red Blood Cells % 0 %; Platelet Count 122 10^3/cmm (130-400); Red Blood Count 3.43 10^6/uL (4.1-5.3); Red Cell Distribution Width 15.1 % (12.1-15.1); White Blood Count 2.4 10^3/uL (4.0-10.0)
[2020-09-16 10:17] LABS: Neutrophils # 0.98 10^3/uL (1.8-7.7)
== END 2020-09-16 09:03 | disposition home or self-care (01) ==
LOC: ONCMED 09:02
PROVIDERS: PCP Internal Medicine; Visit Provider Nurse Practitioner
DX: C90.00 Multiple myeloma not having achieved remission (principal); D47.2 Monoclonal gammopathy; D70.1 Agranulocytosis secondary to cancer chemotherapy; T45.1X5A Adverse effect of antineoplastic and immunosuppressive drugs, initial encounter
CPT/HCPCS: 36591; 85025

== ENCOUNTER 2020-09-23 06:15 | Outpatient (CLI) | payer MEDICARE, SELFPAY ==
[2020-09-23 09:01] LABS: Eosinophils % 1.3 %; Hematocrit 32.9 % (37.0-47.0); Hemoglobin 10.1 g/dL (11.5-15.3); Lymphocytes # 2.1 10^3/uL (0.8-4.8); Lymphocytes % 67.7 %; Mean Corpuscular HGB Conc 30.7 g/dL (30.0-36.0); Mean Corpuscular Hemoglobin 27.7 pg (28.0-34.0); Mean Corpuscular Volume 90.4 fL (81-99); Mean Platelet Volume 11.1 fL (7.4-10.4); Monocytes # 0.2 10^3/uL (0.2-0.9); Monocytes % 6.9 %; Neutrophils % 23.1 %; Nucleated Red Blood Cells % 0 %; Platelet Count 149 10^3/cmm (130-400); Red Blood Count 3.64 10^6/uL (4.1-5.3); Red Cell Distribution Width 15.3 % (12.1-15.1)
[2020-09-23 09:20] LABS: Alanine Aminotransferase 10 U/L (0-33); Albumin Level 3.8 g/dL (3.5-5.2); Alkaline Phosphatase 102 IU/L (35-105); Aspartate Amino Transferase 15 U/L (0-32); Blood Urea Nitrogen 6 mg/dL (8-23); Calcium 8.4 mg/dL (8.5-10.5); Carbon Dioxide 25 mmol/L (22-29); Chloride 101 mmol/L (98-107); Globulin 4.1 g/dL (1.3-4.6); Glomerular Filtration Rate 70.9 mL/min (90-130); Glucose 85 mg/dL (65-115); Immunoglobulin IGG 2798 mg/dL (700-1600); Osmolality Calculated 273 mOsm/kg (285-295); Sodium 133 mmol/L (136-145); Total Bilirubin 0.3 mg/dL (0.15-1.2); Total Protein 7.9 g/dL (6.6-8.7)
[2020-09-23 09:47] LABS: Immunoglobulin IGA < 50 mg/dL (70-400); Immunoglobulin IGM 6 mg/dL (40-230)
[2020-09-24 08:49] LABS: PROTEIN, TOTAL 7.6 g/dL (6.1-8.1)
[2020-09-24 15:28] LABS: ABNORMAL PROTEIN BAND 1 2.1 g/dL (NONE DETECTED); ALBUMIN 3.6 g/dL (3.8-4.8); ALPHA 1 GLOBULIN 0.4 g/dL (0.2-0.3); ALPHA 2 GLOBULIN 0.8 g/dL (0.5-0.9); BETA 1 GLOBULIN 0.5 g/dL (0.4-0.6); BETA 2 GLOBULIN 0.2 g/dL (0.2-0.5); GAMMA GLOBULIN 2.2 g/dL (0.8-1.7)
[2020-09-24 16:03] LABS: KAPPA LIGHT CHAIN, FREE, SERUM 270.1 mg/L (3.3-19.4); KAPPA/LAMBDA LIGHT CHAINS FREE 117.43 (0.26-1.65); LAMBDA LIGHT CHAIN, FREE, SERU 2.3 mg/L (5.7-26.3)
== END 2020-09-23 06:16 | disposition home or self-care (01) ==
LOC: ONCMED 06:19
PROVIDERS: PCP Internal Medicine; Visit Provider Internal Medicine Medical Oncology
DX: C90.00 Multiple myeloma not having achieved remission (principal); I26.99 Other pulmonary embolism without acute cor pulmonale; I10 Essential (primary) hypertension; E78.5 Hyperlipidemia, unspecified; I25.10 Atherosclerotic heart disease of native coronary artery without angina pectoris; E03.9 Hypothyroidism, unspecified; M79.7 Fibromyalgia; F41.9 Anxiety disorder, unspecified; F32.9 Major depressive disorder, single episode, unspecified; K21.9 Gastro-esophageal reflux disease without esophagitis; Z79.899 Other long term (current) drug therapy
CPT/HCPCS: 36591; 80053; 82784; 83883; 84155; 84165; 85025

== ENCOUNTER 2020-10-14 08:57 | Outpatient (CLI) | payer MEDICARE, SELFPAY ==
[2020-10-14 09:37] LABS: Basophils % 0.5 %; Eosinophils # 0.1 10^3/uL (0.0-0.8); Eosinophils % 3.2 %; Hematocrit 31.3 % (37.0-47.0); Hemoglobin 9.7 g/dL (11.5-15.3); Lymphocytes # 1.3 10^3/uL (0.8-4.8); Lymphocytes % 59.6 %; Mean Corpuscular Hemoglobin 27.9 pg (28.0-34.0); Mean Corpuscular Volume 89.9 fL (81-99); Mean Platelet Volume 11.5 fL (7.4-10.4); Monocytes # 0.1 10^3/uL (0.2-0.9); Neutrophils % 31.2 %; Nucleated Red Blood Cells % 0 %; Platelet Count 146 10^3/cmm (130-400); Red Blood Count 3.48 10^6/uL (4.1-5.3); Red Cell Distribution Width 16.7 % (12.1-15.1); White Blood Count 2.2 10^3/uL (4.0-10.0)
[2020-10-14 09:58] LABS: Alanine Aminotransferase 14 U/L (0-33); Albumin Level 3.9 g/dL (3.5-5.2); Alkaline Phosphatase 115 IU/L (35-105); Anion Gap 12.1 (5-19); Aspartate Amino Transferase 19 U/L (0-32); Blood Urea Nitrogen 10 mg/dL (8-23); Calcium 8.3 mg/dL (8.5-10.5); Carbon Dioxide 26 mmol/L (22-29); Chloride 102 mmol/L (98-107); Glomerular Filtration Rate 98.8 mL/min (90-130); Glucose 102 mg/dL (65-115); Immunoglobulin IGG 3106 mg/dL (700-1600); Osmolality Calculated 281 mOsm/kg (285-295); Potassium 4.1 mmol/L (3.5-5.1); Sodium 136 mmol/L (136-145); Total Bilirubin 0.2 mg/dL (0.15-1.2); Total Protein 7.9 g/dL (6.6-8.7)
[2020-10-14 10:11] LABS: Immunoglobulin IGA < 50 mg/dL (70-400); Immunoglobulin IGM < 25 mg/dL (40-230)
[2020-10-14 10:28] LABS: Neutrophils # 0.68 10^3/uL (1.8-7.7); Slide Review Slide Review Perform
[2020-10-15 07:58] LABS: PROTEIN, TOTAL 7.9 g/dL (6.1-8.1)
[2020-10-15 15:53] LABS: ABNORMAL PROTEIN BAND 1 2.5 g/dL (NONE DETECTED); ALBUMIN 3.6 g/dL (3.8-4.8); ALPHA 1 GLOBULIN 0.4 g/dL (0.2-0.3); ALPHA 2 GLOBULIN 0.7 g/dL (0.5-0.9); BETA 1 GLOBULIN 0.5 g/dL (0.4-0.6); BETA 2 GLOBULIN 0.2 g/dL (0.2-0.5); GAMMA GLOBULIN 2.6 g/dL (0.8-1.7)
[2020-10-15 16:23] LABS: KAPPA LIGHT CHAIN, FREE, SERUM 248.6 mg/L (3.3-19.4); LAMBDA LIGHT CHAIN, FREE, SERU 2.2 mg/L (5.7-26.3)
== END 2020-10-14 08:58 | disposition home or self-care (01) ==
PROVIDERS: PCP Internal Medicine; Visit Provider Internal Medicine Medical Oncology
DX: C90.00 Multiple myeloma not having achieved remission (principal)
CPT/HCPCS: 36591; 80053; 82784; 83883; 84155; 84165; 85025

== ENCOUNTER 2020-10-21 06:15 | Outpatient (CLI) | payer MEDICARE, SELFPAY ==
--- NOTE | 2020-10-25 10:26 | ONC FU_ITS ---
Dr. Sanchez Patient Follow-Up Note Patient: Karely Armenta Unit #: [id number]: 1950 Dicatated By: Sean Sanchez M.D.Date of Visit:Oct 21, 2020 Onc Med Follow-up/Prog Note Chief Complaint: Myeloma. History of Present Illness: This is a 70 year-old woman with IgG kappa myeloma. She was found to be moderately anemic in December 2016 when she was admitted to the hospital with pneumonia. She also reported having had an illness the preceding summer, in October or November, which may have been tick fever, but that was never confirmed. Her follow-up laboratory studies with Dr. Garcia on 05/03/2017 included CBC showing hemoglobin 11.9 g with white blood cell count 5100 and platelet count 155,000. Her sedimentation rate was significantly elevated at 94 mm/hour. The chem profile showed normal renal function with BUN 13 and creatinine 0.96 mg/dL. Calcium was normal at 9.0 mg/dL. Protein electrophoresis showed a monoclonal protein quantitating at 2.5 g/dL. Immunofixation showed an IgG kappa paraprotein measuring 2.87 g/dL. Hepatits screen was nonreactive to hepatitis C, hepatitis Bs antigen, and hepatitis B core total Ab referral. The hepatitis B surface antibody was < 3.10. LDH was normal at 149 U/L. The beta-2 microglobulin was slightly elevated at 0.420 mg/dL. I had seen her initially on 05/11/2017. Repeat protein electrophoresis with immunofixation prior to that visit, from 05/09/2017, showed IgG kappa monoclonal protein quantitating at 2.87 g/dL. The kappa light chain was elevated at 177.96 mg/L with lambda light chain 1.73 mg/L and kappa/lambda ratio elevated at 102. On her further evaluation there was no monoclonal protein detected in a 24-hour urine specimen. Skeletal survey on 05/11/2017 showed cervical and lumbar spondylosis and bilateral hip joint osteoarthritic changes. There was no radiographic evidence of multiple myeloma. She underwent bone marrow aspiration/biopsy on 05/17/2017. The cellularity was estimated at 70% with 32% plasma cells. Iron stores were noted to be absent. The FISH panel for myeloma showed gain of chromosome 1q, deletions of RB 1 and LAMP1, and gain of IG. The standard chromosome analysis was normal. Overall, the findings were consistent with plasma cell neoplasm/myeloma. Staging PET/CT on 06/03/2017 showed a single FDG avid osteolytic site in the T1 vertebral body which was felt to possibly represent multiple myeloma. She then had further evaluation with MRI of the spine on 07/12/2017. There were significant degenerative changes in the cervical spine which included moderate central canal stenosis at C4-C5, C5-C6, and C7 as well as bilateral nerve root encroachment at C5, C6, and C7. There were also degenerative changes in the lumbar spine with interval STIR signal abnormality and enhancement of T10-L5 spinous processes suggesting possible myelomatous changes. The thoracic spine showed subtle diffuse signal and enhancement abnormality involving the T1 vertebral body. In correlation with the PET/CT findings, this was felt to be suspicious for neoplastic process, including multiple myeloma. There were no actual lytic lesions identified. She began treatment with Velcade/Revlimid/dexamethasone in August 2017. She tolerated it rather poorly, and she did require treatment interruptions and dose reductions, but she idd show evidence for response. As of April 2018, during her 9th cycle, her M protein had declined to 0.84 g/dL. She continued with cycle 10 in May 2018. However, a repeat protein electrophoresis on 07/20/2018 showed an increase in the M protein to 1.4 g/dL. The free light chain assay showed and increase in the free kappa light chain to 83.8 mg/L with elevated kappa/lambda ratio at 28.90. In August 2018 she began second line treatment with Revlimid/ixazomib/dexamethasone. Due to her previous toxicities with Revlimid, it was initiated at a reduced dosage of 10 mg daily on a 21/28 day schedule with ixazomib dosed at 4 mg on days 18 and 15 and the dexamethasone dose at 40 mg weekly. She was able to tolerate it with acceptable toxicity. As of 05/06/2019 her treatment was put on hold due to persistent neutropenia. In May 2019 she had taken a trip to [place], and while she was there she became very ill and required treatment for pneumonia. She returned here for a follow-up visit in June. Her repeat protein electrophoresis on 07/02/2019 showed increase in the M protein to 2.0 g/dL. Her free light chain assay showed increased kappa light chain to 142 mg/L with lambda light chain 2.9 mg/L, and elevated kappa/lambda ratio at 49.38. Restaging PET/CT on 07/13/2019 showed stable findings in the T1 lesion with FDG activity no greater than that of marrow background, consistent with successfully treated disease. There was no evidence of any new lesions. However, with the significant increase in the M protein and in the kappa free light chain, she was recommended to proceed with 3rd line treatment with daratumumab in combination with carfilzomib and dexamethasone. Her baseline echocardiogram showed normal left ventricular function with ejection fraction estimated at 60%. She returned to begin cycle 1 of daratumumab/carfilzomib/dexamethasone on 08/12/2019. The initial infusion of daratumumab was administered in divided doses over 2 days. She tolerated the treatment well. However, her day 8 treatment was complicated by nausea and profuse diaphoresis, which she attributed to the daratumumab. She was able to complete her day 9 carfilzomib treatment. Her day 15/16 treatment was withheld due to a drop in her white blood cell count to 2000 with her ANC at 1000. She did not have fever or other complications. She was given her week 3 daratumumab the following week, but I did opt to split the dosage over 2 days. She tolerated it with no adverse effects. She continued with cycle 2 on 09/11/2019 with the carfilzomib administered at a reduced dosage and with the daratumumab administered in a split dosage. She continued to have anemia, moderately severe neutropenia, and mild thrombocytopenia, but she was able to tolerate the treatment with acceptable toxicity. As of 10/02/2019 the M protein had decreased to 1.1 g/dL. She proceeded with cycle 3 on 10/09/2019. At cycle 3-day 15, on 10/22/2019, her carfilzomib was omitted due to neutropenia, ANC 1400. She did receive her 8th weekly infusion of daratumumab, administered as a single infusion. At that time she also was complaining increased shortness of breath, and a CT pulmonary angiogram showed small filling defects in both the right and left secondary pulmonary arteries consistent with thromboembolic disease. Altered perfusion was seen in those areas. As it did appear to be clinically significant, she was started on anticoagulation with apixaban. She continued with her 4th cycle of treatment on 11/06/2019 with the daratumumab administered at 2-week intervals. At that point her M protein was stable at 1.2 g/dL. The serum free light chain assay, though, did show a decline in her free kappa light chain from 143.7 to 100.6 mg/L. She began cycle 5 on 12/04/2019. Her M protein was down slightly, to 1.1 g/dL. As of 01/01/2020 it had further declined to 0.9 g/dL. She continued with her 6th cycle of treatment, and she then continued with cycle 7 on 02/19/2020 and with cycle 8 on 03/18/2020. At that point her M protein has increased to 1.5 g/dL. In March she underwent a dental extraction/implant procedure. The procedure was complicated by persistent defect in her left upper gum/maxillary bone. She continued with cycle 9 of daratumumab/carfilzomib/dexamethasone on 04/15/2020. She then received a scheduled infusion of daratumumab on 05/12/2020. Her repeat protein electrophoresis at that time showed further increase in the M protein to 2.1 g/dL. Her treatment was put on hold. Her other medical illnesses include hypertension, hyperlipidemia, coronary artery disease, hypothyroidism, GERD, fibromyalgia, degenerative arthritis, and anxiety/depression. Her surgical/procedural history includes coronary angioplasty/stent placement 2015. She has arthroscopic left knee surgery, and she also has had surgery on the right shoulder. She has history of smoking for 25 years, from 1-3 packs of cigarettes daily. She quit smoking in 1989. She has had just occasional alcohol use. She is [employer], and she will not accept blood products. INTERIM HISTORY: On 07/21/2020 she began further treatment with pomalidomide in combination with elotuzumab and dexamethasone. In view of the side effects she had experienced with lenalidomide, the pomalidomide was started at a reduced dosage (2 mg) administered on a 21/28-day schedule. She initially tolerated the treatment well at the reduced dosage of pomalidomide, and she continued with cycle 2 on 08/26/2020. Her repeat protein electrophoresis at that point had shown a slight decline in the M protein, to 2.0 g/dL. She continued with her cycle 2-day 8 treatment on 09/02/2020. However, at day 15 her treatment was put on hold due to a drop in her white blood cell count to 2500 with absolute neutrophil count 1000. Her blood counts were then monitored weekly. As of 10/15/2019 when her white blood cell count remained low at 2200 with absolute neutrophil count 700. Her repeat protein electrophoresis at that time showed increase in her M protein to 2.5 g/dL. Her free light chain assay showed elevated free kappa light chain at 248.6 mg/L with lambda light chain 2.2 mg/L and elevated kappa/lambda ratio at 113. She is seen for a follow-up visit. She complains that her energy is low, and she also has been having more lower back pain. She is still able to do light work. ECOG score is 1. Her appetite is good. She has no fever or night sweats. She reports some decline in visual acuity. She has been having a lot of mucus drainage into her throat and she has sore throat off and on. She does not complain of cough, but she does get short of breath with activity, particularly walking uphill. She has not had any chest pain. She occasionally has nausea. She has no other GI or complaints. She currently is not having any other joint or bone pain. She has headache off and on and she sometimes has dizziness. She has no numbness/paresthesia or other focal neurologic symptoms. Medications: amLODIPine Besylate 1 Tablet (of 5 mg) Oral daily, Amoxicillin-Pot Clavulanate 1 Tablet (of 875-125 mg) Oral daily for 10 days, Body/Hair/Skin/Nails 2 Capsule Oral daily, Bglqvuhzkt-IQIL-Skft-Cod 1 (07-984-21-30 mg) Capsule Oral four times a day PRN, Hmekfjvbvy-RXTM-Crwivtps 1 Capsule (of 50-325-40 mg) Oral daily PRN, Cholecalciferol 2 (1000 Units) Capsule Oral daily, Curcumin 95 1 (500 mg) Capsule Oral daily PRN, Cymbalta 1 (60 mg) Capsule Delayed Release Particles Oral daily, Eliquis 1 Tablet (of 2.5 mg) Oral b.i.d., Flagyl 1 Tablet (of 500 mg) Oral daily, Furosemide 1 Tablet (of 20 mg) Oral daily PRN, Levothyroxine Sodium 1 (50 mcg) Tablet Oral daily, LORazepam 0.5 - 1 (1 mg) Tablet Oral q 4 hours PRN, Metoprolol Tartrate 1 Tablet (of 50 mg) Oral daily, Multivitamin Adult 1 Tablet Oral daily, Nitroglycerin 1 (400 mcg/spray) Aerosol, solution Translingual PRN, OxyCODONE HCl 1 (30 mg) Tablet Oral 5x/d PRN, Pantoprazole Sodium 1 Tablet (of 40 mg) Tablet, enteric coated Oral daily, Potassium Chloride ER 1 Tablet (of 10 meq) Tablet, controlled release Oral daily PRN, Pravastatin Sodium 1 (40 mg) Tablet Oral daily, Prochlorperazine Maleate 1 (10 mg) Tablet Oral four times a day PRN, QUEtiapine Fumarate 2 Tablet (of 25 mg) Oral at bedtime, Soma 1 (350 mg) Tablet Oral four times a day PRN Allergies: Codeine Sulfate, LevoFLOXacin, and Vicodin. Vital Signs: Performed on Oct 21, 2020 16:27 Height - 66.00 in Weight - 163.6 lbs (HIGH) BSA - 1.84 sq.m BMI - 26.41 Temperature - 97.2 F (LOW) Pulse - 79 /min Respiration - 18 /min BP - 161/80 mm(hg) (HIGH) O2 Sat - 93 % (LOW) Pain - 8 Fatigue - 7 Physical Examination: Constitutional - She looks pretty good generally, Eyes - Sclerae nonicteric. Conjunctivae clear, ENMT - No lesions noted in the oral cavity, Hematologic/Lymphatic - No cervical, clavicular, or axillary adenopathy, Respiratory - Lungs are clear with good air movement bilaterally, Cardiovascular - Heart rhythm is regular. There is no murmur, gallop, or rub noted, Abdomen - Soft. Liver and spleen are not enlarged. There is no abdominal mass or ascites noted and there is no inguinal adenopathy, Extremities - No edema, Neurologic - No focal neurologic deficits noted. Lab/Imaging: Test performed on October 14, 2020 09:17 Sodium 136 mmol/L Potassium 4.1 mmol/L Chloride 102 mmol/L CO2 26 mmol/L Anion Gap 12.1 BUN 10 mg/dL Creatinine 0.6 mg/dL Cr Clearance (Est) 100.3300 mL/min eGFR 98.8 mL/min Glucose 102 mg/dL Osmolality - Calculated 281 mOsm/kg Calcium 8.3 mg/dL Protein, Total 7.9 g/dL Albumin 3.9 g/dL Globulin 4.0 g/dL Bilirubin, Total 0.2 mg/dL ALT (SGPT) 14 U/L AST (SGOT) 19 U/L Alkaline Phosphatase 115 IU/L WBC 2.2 10 3/uL RBC 3.48 10 6/uL HGB 9.7 g/dL HCT 31.3 % MCV 89.9 fL MCH 27.9 pg MCHC 31.0 g/dL RDW 16.7 % Platelet Count 146 10 3/cmm MPV 11.5 fL Neutrophils 0.68 10 3/uL Lymphocytes 1.3 10 3/uL Monocytes 0.1 10 3/uL Eosinophils 0.1 10 3/uL Basophils 0.0 10 3/uL Neutrophil % 31.2 % Lymphocyte % 59.6 % Monocyte % 5.0 % Eosinophil % 3.2 % Basophils % 0.5 % NRBC % 0 % CBC Slide Review Slide Review Perform SLIDE REVIEW AGREES WITH AUTOMATED RESULTS ST IgG 3106 mg/dL Biron Free Light Chains 248.6 mg/L Lambda Free Light Chains 2.2 mg/L IgA < 50 mg/dL Biron/Lambda Free Ratio 113.00 IgM < 25 mg/dL Problem List: 1. IgG kappa myeloma. Bone marrow aspiration/biopsy on 05/17/2017 showed 32% plasma cells, consistent with myeloma. The FISH panel showed gain of chromosome 1q, deletions of RB 1 and LAMP1, and gain of IG. Her baseline M protein was 2.87 g/dL. She was mildly anemic and she had significantly elevated sedimentation rate. She had normal renal function and negative 24-hour urine protein electrophoresis. Skeletal survey showed no lytic bone involvement. PET/CT and MRI both showed findings suspicious for involvement of the T1 vertebral body. She was not overtly symptomatic with it. 2. Pulmonary emboli diagnosed by CT pulmonary angiogram in October 2019. She has been on anticoagulation with apixaban. 3. Hypertension. 4. Hyperlipidemia. 5. Coronary artery disease with angioplasty/stent placement in February 2016. 6. Hypothyroidism. 7. GERD. 8. Degenerative arthritis/degenerative disease of the spine. 9. Fibromyalgia. 10. Anxiety/depression. Problems Addressed with this Encounter and Plan: 1. Patient with IgG kappa myeloma, initially diagnosed in April 2017.. Her FISH panel showed gain of chromosome 1q, deletions of RB 1 and LAMP1, and gain of IG. Her baseline M protein was 2.87 g/dL. She was considered transplant ineligible due to being [employer] and not willing to accept transfusion. She had some response to 1st-line treatment with Revlimid/Velcade/dexamethasone from August 2017 through May 2018. However, she tolerated it poorly, and she had required treatment interruptions and dose reductions. As of July 2018 there was a significant increase in her M protein to 1.4 g/dL and an increase in her kappa/lambda ratio to 28.90, consistent with disease progression. Restaging PET/CT showed only mild FDG activity in the T1 lesion. There were no other areas of FDG uptake, and there was no significant change compared to the prior study in May 2017. She then began 2nd line therapy with Revlimid/ixazomib/dexamethasone in July 2018, continued through April 2019. She again did have some response, but it was put on hold at that point due to persistent neutropenia. She began 3rd line treatment with daratumumab/carfilzomib/dexamethasone in July 2019. She again tolerated it rather poorly, requiring dose attenuations. Her treatment was complicated by pulmonary emboli for which she began on anticoagulation with apixaban. She did have evidence of response by M protein. However, since February 2020 there was a gradual increase in her M protein level and in her kappa/lambda ratio, so that she was again showing disease progression. On 07/21/2020 she began on 4th line treatment with pomalidomide in combination with elotuzumab and dexamethasone, but with pomalidomide administered at a reduced dosage due to prior toxicities she had experienced with lenalidomide. She initially appeared to tolerate the treatment well, and she continued with cycle 2 on on 08/26/2020. At day 15 her treatment was put on hold due to drop in her neutrophil count to 1000. She has since then remained off treatment, thus far with no significant recovery in her neutrophil count. However, since then there has been a significant increase in her M protein and her free kappa light chain, consistent with progression of the myeloma. Along with that she is reporting increased lower back pain, which is suspicious for involvement with myeloma. With these findings, she will be transitioned to a salvage therapy, most likely with belantamab mafodotin, but she will first be scheduled for MRI of the lumbar spine. She will have further evaluation for the back pain as indicated. 2. Pulmonary emboli diagnosed by CT pulmonary angiogram in October 2019. She remains on anticoagulation with apixaban. Signed By: Sean Sanchez M.D. <<Signature on File>>
== END 2020-10-21 06:16 | disposition home or self-care (01) ==
LOC: ONCMED 06:16
PROVIDERS: PCP Internal Medicine; Visit Provider Internal Medicine Medical Oncology
DX: C90.00 Multiple myeloma not having achieved remission (principal); I26.99 Other pulmonary embolism without acute cor pulmonale; Z79.01 Long term (current) use of anticoagulants; I10 Essential (primary) hypertension; E78.5 Hyperlipidemia, unspecified; I25.10 Atherosclerotic heart disease of native coronary artery without angina pectoris; Z95.5 Presence of coronary angioplasty implant and graft; E03.9 Hypothyroidism, unspecified; K21.9 Gastro-esophageal reflux disease without esophagitis; M47.9 Spondylosis, unspecified; M79.7 Fibromyalgia; F41.9 Anxiety disorder, unspecified; F32.9 Major depressive disorder, single episode, unspecified; Z79.899 Other long term (current) drug therapy
CPT/HCPCS: 99214

== ENCOUNTER 2020-11-30 09:03 | Outpatient (CLI) | payer MEDICARE, SELFPAY ==
--- NOTE | 2020-11-30 09:30 | MR_ITS ---
WS: [id number] [facility] 11 1949 MRI LUMBAR SPINE WITHOUT AND WITH CONTRAST TECHNIQUE: Sagittal T1, T2 and STIR imaging. Axial T1 and T2 imaging. Post gadolinium imaging was obt ained. CLINICAL INFORMATION: Myeloma. Back pain. COMPARISON: MRI 2 FINDINGS: Mild lumbar curve. No acute compression. No high-grade central canal stenosis. Disc space narrowing w orse at L3-L4 and L4-L5 with endplate degenerative changes. No enhancing myelomatous lesions. L1-L2: Normal. L2-L3: Normal. L3-L4: Mild disc bulging with slight effacement of ventral thecal sac. Moderate facet arthropathy. Na rrowing of the subarticular recess bilaterally. Foramen are patent. L4-L5: Mild disc bulging with impingement on the right subarticular recess and traversing right L5 ne rve root. Mild right and no significant left foraminal narrowing. Moderate facet arthropathy. This is stable compared to previous. L5-S1: No significant disc bulging. Mild osteophytic ridging. Mild left and no significant right fora rosalee narrowing. Moderate facet arthropathy. Visualized pelvic bony structures: Normal. Paravertebral soft tissues: Normal. MR/MR lumbar spine wo/w con [id number] IMPRESSION: 1. Mild lumbar curve. No acute compression. No high-grade central canal stenos is. 2. No enhancing myelomatous lesions. 3. Disc bulging worse at L3-L4 and L4-L5 slightly progressed compared to 2018. 4. Tiny right subarticular protrusion impinges the traversing right L5 nerve r oot in the subarticular recess. Mild right foraminal narrowing. 5. Mild left L5-S1 bony foraminal narrowing. 6. Moderate facet arthropathy L4-L5 and L5-S1.
[2020-11-30] MEDS: gadobenate dimeglumine 20 mL vial IV (11:08)
== END 2020-11-30 09:04 | disposition home or self-care (01) ==
LOC: RADSHAW 09:04
PROVIDERS: PCP Internal Medicine; Visit Provider Internal Medicine Medical Oncology
DX: C90.00 Multiple myeloma not having achieved remission (principal); M47.816 Spondylosis without myelopathy or radiculopathy, lumbar region; M47.817 Spondylosis without myelopathy or radiculopathy, lumbosacral region; M51.26 Other intervertebral disc displacement, lumbar region
CPT/HCPCS: 72158; A9577

== ENCOUNTER 2020-12-30 12:34 | Outpatient (CLI) | payer MEDICARE, SELFPAY ==
[2020-12-30 13:24] LABS: Basophils % 0.6 %; Eosinophils % 0.6 %; Hemoglobin 9.5 g/dL (11.5-15.3); Lymphocytes # 2.6 10^3/uL (0.8-4.8); Lymphocytes % 73.1 %; Mean Corpuscular HGB Conc 31.7 g/dL (30.0-36.0); Mean Corpuscular Hemoglobin 30.1 pg (28.0-34.0); Mean Corpuscular Volume 94.9 fL (81-99); Mean Platelet Volume 9.1 fL (7.4-10.4); Monocytes # 0.3 10^3/uL (0.2-0.9); Monocytes % 8.9 %; Neutrophils % 16.8 %; Nucleated Red Blood Cells % 0 %; Platelet Count 97 10^3/cmm (130-400); Red Blood Count 3.16 10^6/uL (4.1-5.3); Red Cell Distribution Width 18.5 % (12.1-15.1); White Blood Count 3.5 10^3/uL (4.0-10.0)
[2020-12-30 13:56] LABS: Alanine Aminotransferase 10 U/L (0-33); Albumin Level 3.4 g/dL (3.5-5.2); Alkaline Phosphatase 91 IU/L (35-105); Anion Gap 10.4 (5-19); Aspartate Amino Transferase 16 U/L (0-32); Blood Urea Nitrogen 7 mg/dL (8-23); Carbon Dioxide 27 mmol/L (22-29); Chloride 101 mmol/L (98-107); Globulin 5.4 g/dL (1.3-4.6); Glomerular Filtration Rate 82.7 mL/min (90-130); Glucose 71 mg/dL (65-115); Immunoglobulin IGA 50 mg/dL (70-400); Immunoglobulin IGG 4077 mg/dL (700-1600); Osmolality Calculated 274 mOsm/kg (285-295); Potassium 4.4 mmol/L (3.5-5.1); Sodium 134 mmol/L (136-145); Total Bilirubin 0.2 mg/dL (0.15-1.2); Total Protein 8.8 g/dL (6.6-8.7)
[2020-12-30 14:14] LABS: Immunoglobulin IGM < 25 mg/dL (40-230)
[2020-12-30 14:36] LABS: Neutrophils # 0.59 10^3/uL (1.8-7.7)
[2020-12-30 14:37] LABS: Slide Review Slide Review Perform
[2020-12-31 09:33] LABS: PROTEIN, TOTAL 8.7 g/dL (6.1-8.1)
[2020-12-31 10:57] LABS: KAPPA LIGHT CHAIN, FREE, SERUM 442.1 mg/L (3.3-19.4); KAPPA/LAMBDA LIGHT CHAINS FREE 221.05 (0.26-1.65)
[2020-12-31 13:02] LABS: ABNORMAL PROTEIN BAND 1 3.4 g/dL (NONE DETECTED); ALBUMIN 3.6 g/dL (3.8-4.8); ALPHA 1 GLOBULIN 0.3 g/dL (0.2-0.3); ALPHA 2 GLOBULIN 0.7 g/dL (0.5-0.9); BETA 1 GLOBULIN 0.4 g/dL (0.4-0.6); BETA 2 GLOBULIN 0.2 g/dL (0.2-0.5); GAMMA GLOBULIN 3.5 g/dL (0.8-1.7)
--- NOTE | 2020-12-31 18:36 | ONC FU_ITS ---
Dr. Sanchez Patient Follow-Up Note Patient: Karely Armenta Unit #: [id number]: [id number] Dicatated By: Sean Sanchez M.D.Date of Visit:Dec 30, 2020 Onc Med Follow-up/Prog Note Chief Complaint: Myeloma. History of Present Illness: This is a 70 year-old woman with IgG kappa myeloma. She was found to be moderately anemic in December 2016 when she was admitted to the hospital with pneumonia. She also reported having had an illness the preceding summer, in October or November, which may have been tick fever, but that was never confirmed. Her follow-up laboratory studies with Dr. Garcia on 05/03/2017 included CBC showing hemoglobin 11.9 g with white blood cell count 5100 and platelet count 155,000. Her sedimentation rate was significantly elevated at 94 mm/hour. The chem profile showed normal renal function with BUN 13 and creatinine 0.96 mg/dL. Calcium was normal at 9.0 mg/dL. Protein electrophoresis showed a monoclonal protein quantitating at 2.5 g/dL. Immunofixation showed an IgG kappa paraprotein measuring 2.87 g/dL. Hepatits screen was nonreactive to hepatitis C, hepatitis Bs antigen, and hepatitis B core total Ab referral. The hepatitis B surface antibody was < 3.10. LDH was normal at 149 U/L. The beta-2 microglobulin was slightly elevated at 0.420 mg/dL. I had seen her initially on 05/11/2017. Repeat protein electrophoresis with immunofixation prior to that visit, from 05/09/2017, showed IgG kappa monoclonal protein quantitating at 2.87 g/dL. The kappa light chain was elevated at 177.96 mg/L with lambda light chain 1.73 mg/L and kappa/lambda ratio elevated at 102. On her further evaluation there was no monoclonal protein detected in a 24-hour urine specimen. Skeletal survey on 05/11/2017 showed cervical and lumbar spondylosis and bilateral hip joint osteoarthritic changes. There was no radiographic evidence of multiple myeloma. She underwent bone marrow aspiration/biopsy on 05/17/2017. The cellularity was estimated at 70% with 32% plasma cells. Iron stores were noted to be absent. The FISH panel for myeloma showed gain of chromosome 1q, deletions of RB 1 and LAMP1, and gain of IG. The standard chromosome analysis was normal. Overall, the findings were consistent with plasma cell neoplasm/myeloma. Staging PET/CT on 06/03/2017 showed a single FDG avid osteolytic site in the T1 vertebral body which was felt to possibly represent multiple myeloma. She then had further evaluation with MRI of the spine on 07/12/2017. There were significant degenerative changes in the cervical spine which included moderate central canal stenosis at C4-C5, C5-C6, and C7 as well as bilateral nerve root encroachment at C5, C6, and C7. There were also degenerative changes in the lumbar spine with interval STIR signal abnormality and enhancement of T10-L5 spinous processes suggesting possible myelomatous changes. The thoracic spine showed subtle diffuse signal and enhancement abnormality involving the T1 vertebral body. In correlation with the PET/CT findings, this was felt to be suspicious for neoplastic process, including multiple myeloma. There were no actual lytic lesions identified. She began treatment with Velcade/Revlimid/dexamethasone in August 2017. She tolerated it rather poorly, and she did require treatment interruptions and dose reductions, but she idd show evidence for response. As of April 2018, during her 9th cycle, her M protein had declined to 0.84 g/dL. She continued with cycle 10 in May 2018. However, a repeat protein electrophoresis on 07/20/2018 showed an increase in the M protein to 1.4 g/dL. The free light chain assay showed and increase in the free kappa light chain to 83.8 mg/L with elevated kappa/lambda ratio at 28.90. In August 2018 she began second line treatment with Revlimid/ixazomib/dexamethasone. Due to her previous toxicities with Revlimid, it was initiated at a reduced dosage of 10 mg daily on a 21/28 day schedule with ixazomib dosed at 4 mg on days 18 and 15 and the dexamethasone dose at 40 mg weekly. She was able to tolerate it with acceptable toxicity. As of 05/06/2019 her treatment was put on hold due to persistent neutropenia. In May 2019 she had taken a trip to [place], and while she was there she became very ill and required treatment for pneumonia. She returned here for a follow-up visit in June. Her repeat protein electrophoresis on 07/02/2019 showed increase in the M protein to 2.0 g/dL. Her free light chain assay showed increased kappa light chain to 142 mg/L with lambda light chain 2.9 mg/L, and elevated kappa/lambda ratio at 49.38. Restaging PET/CT on 07/13/2019 showed stable findings in the T1 lesion with FDG activity no greater than that of marrow background, consistent with successfully treated disease. There was no evidence of any new lesions. However, with the significant increase in the M protein and in the kappa free light chain, she was recommended to proceed with 3rd line treatment with daratumumab in combination with carfilzomib and dexamethasone. Her baseline echocardiogram showed normal left ventricular function with ejection fraction estimated at 60%. She returned to begin cycle 1 of daratumumab/carfilzomib/dexamethasone on 08/12/2019. The initial infusion of daratumumab was administered in divided doses over 2 days. She tolerated the treatment well. However, her day 8 treatment was complicated by nausea and profuse diaphoresis, which she attributed to the daratumumab. She was able to complete her day 9 carfilzomib treatment. Her day 15/16 treatment was withheld due to a drop in her white blood cell count to 2000 with her ANC at 1000. She did not have fever or other complications. She was given her week 3 daratumumab the following week, but I did opt to split the dosage over 2 days. She tolerated it with no adverse effects. She continued with cycle 2 on 09/11/2019 with the carfilzomib administered at a reduced dosage and with the daratumumab administered in a split dosage. She continued to have anemia, moderately severe neutropenia, and mild thrombocytopenia, but she was able to tolerate the treatment with acceptable toxicity. As of 10/02/2019 the M protein had decreased to 1.1 g/dL. She proceeded with cycle 3 on 10/09/2019. At cycle 3-day 15, on 10/22/2019, her carfilzomib was omitted due to neutropenia, ANC 1400. She did receive her 8th weekly infusion of daratumumab, administered as a single infusion. At that time she also was complaining increased shortness of breath, and a CT pulmonary angiogram showed small filling defects in both the right and left secondary pulmonary arteries consistent with thromboembolic disease. Altered perfusion was seen in those areas. As it did appear to be clinically significant, she was started on anticoagulation with apixaban. She continued with her 4th cycle of treatment on 11/06/2019 with the daratumumab administered at 2-week intervals. At that point her M protein was stable at 1.2 g/dL. The serum free light chain assay, though, did show a decline in her free kappa light chain from 143.7 to 100.6 mg/L. She began cycle 5 on 12/04/2019. Her M protein was down slightly, to 1.1 g/dL. As of 01/01/2020 it had further declined to 0.9 g/dL. She continued with her 6th cycle of treatment, and she then continued with cycle 7 on 02/19/2020 and with cycle 8 on 03/18/2020. At that point her M protein has increased to 1.5 g/dL. In March she underwent a dental extraction/implant procedure. The procedure was complicated by persistent defect in her left upper gum/maxillary bone. She continued with cycle 9 of daratumumab/carfilzomib/dexamethasone on 04/15/2020. She then received a scheduled infusion of daratumumab on 05/12/2020. Her repeat protein electrophoresis at that time showed further increase in the M protein to 2.1 g/dL. Her treatment was put on hold. Her other medical illnesses include hypertension, hyperlipidemia, coronary artery disease, hypothyroidism, GERD, fibromyalgia, degenerative arthritis, and anxiety/depression. Her surgical/procedural history includes coronary angioplasty/stent placement 2015. She has arthroscopic left knee surgery, and she also has had surgery on the right shoulder. She has history of smoking for 25 years, from 1-3 packs of cigarettes daily. She quit smoking in 1989. She has had just occasional alcohol use. She is [employer], and she will not accept blood products. INTERIM HISTORY: On 07/21/2020 she began further treatment with pomalidomide in combination with elotuzumab and dexamethasone. In view of the side effects she had experienced with lenalidomide, the pomalidomide was started at a reduced dosage (2 mg) administered on a 21/28-day schedule. She initially tolerated the treatment well at the reduced dosage of pomalidomide, and she continued with cycle 2 on 08/26/2020. Her repeat protein electrophoresis at that point had shown a slight decline in the M protein, to 2.0 g/dL. She continued with her cycle 2-day 8 treatment on 09/02/2020. However, at day 15 her treatment was put on hold due to a drop in her white blood cell count to 2500 with absolute neutrophil count 1000. Her blood counts were then monitored weekly. As of 10/15/2019 when her white blood cell count remained low at 2200 with absolute neutrophil count 700. Her repeat protein electrophoresis at that time showed increase in her M protein to 2.5 g/dL. Her free light chain assay showed elevated free kappa light chain at 248.6 mg/L with lambda light chain 2.2 mg/L and elevated kappa/lambda ratio at 113. At her follow-up visit on 10/21/2020 she was complaining of increased pain in the lower back area. Further evaluation with MRI of the lumbar spine on 11/30/2020 showed no evidence of enhancing myelomatous lesions. There was evidence of disc bulging which was worse at the L3-L4 and L4-L5 levels, slightly progressed compared to the previous study from 2018. There was no high-grade central canal stenosis. Tiny right subarticular protrusion was noted to impinge the traversing right L5 nerve root in the subarticular recess. There was mild right foraminal narrowing. There is also mild left L5-S1 bony foraminal narrowing. She is seen for a follow-up visit. She has not had very good energy, but that she attributes to the hot weather. She is still doing light work. ECOG score is 1. She has good appetite. She has no fever or night sweats. She has not had sore mouth or throat. She does have some shortness of breath with activity. She does not have resting dyspnea, cough, or chest pain. She has occasional nausea. She has no other GI or complaints. She says her lower back is still killing her, but she has no other joint or bone pain. She has had some headache and dizziness. She occasionally has numbness/tingling in her hands. Medications: amLODIPine Besylate 1 Tablet (of 5 mg) Oral daily, Amoxicillin-Pot Clavulanate 1 Tablet (of 875-125 mg) Oral daily for 10 days, Body/Hair/Skin/Nails 2 Capsule Oral daily, Zfchhxgmti-LOLZ-Pmet-Cod 1 (07-520-15-30 mg) Capsule Oral four times a day PRN, Irroootats-YXDW-Wnpnjjku 1 Capsule (of 50-325-40 mg) Oral daily PRN, Cholecalciferol 2 (1000 Units) Capsule Oral daily, Curcumin 95 1 (500 mg) Capsule Oral daily PRN, Cymbalta 1 (60 mg) Capsule Delayed Release Particles Oral daily, Eliquis 1 Tablet (of 2.5 mg) Oral b.i.d., Flagyl 1 Tablet (of 500 mg) Oral daily, Furosemide 1 Tablet (of 20 mg) Oral daily PRN, Levothyroxine Sodium 1 (50 mcg) Tablet Oral daily, LORazepam 0.5 - 1 (1 mg) Tablet Oral q 4 hours PRN, Metoprolol Tartrate 1 Tablet (of 50 mg) Oral daily, Multivitamin Adult 1 Tablet Oral daily, Nitroglycerin 1 (400 mcg/spray) Aerosol, solution Translingual PRN, OxyCODONE HCl 1 (30 mg) Tablet Oral 5x/d PRN, Pantoprazole Sodium 1 Tablet (of 40 mg) Tablet, enteric coated Oral daily, Potassium Chloride ER 1 Tablet (of 10 meq) Tablet, controlled release Oral daily PRN, Pravastatin Sodium 1 (40 mg) Tablet Oral daily, Prochlorperazine Maleate 1 (10 mg) Tablet Oral four times a day PRN, QUEtiapine Fumarate 2 Tablet (of 25 mg) Oral at bedtime, Soma 1 (350 mg) Tablet Oral four times a day PRN Allergies: Codeine Sulfate, LevoFLOXacin, and Vicodin. Vital Signs: Performed on Dec 30, 2020 15:17 Height - 66.00 in Weight - 163.6 lbs BSA - 1.84 sq.m BMI - 26.41 Temperature - 96 F (LOW) Pulse - 78 /min Respiration - 18 /min BP - 151/63 mm(hg) (HIGH) O2 Sat - 97 % Pain - 7 Fatigue - 0 Physical Examination: Constitutional - She looks pretty good generally, Eyes - Sclerae nonicteric. Conjunctivae clear, ENMT - No lesions noted in the oral cavity, Hematologic/Lymphatic - No cervical, clavicular, or axillary adenopathy, Respiratory - Lungs are clear with good air movement bilaterally, Cardiovascular - Heart rhythm is regular. There is no murmur, gallop, or rub noted, Abdomen - Soft. Liver and spleen are not enlarged. There is no abdominal mass or ascites noted and there is no inguinal adenopathy, Extremities - No edema, Neurologic - No focal neurologic deficits noted. Problem List: 1. IgG kappa myeloma. Bone marrow aspiration/biopsy on 05/17/2017 showed 32% plasma cells, consistent with myeloma. The FISH panel showed gain of chromosome 1q, deletions of RB 1 and LAMP1, and gain of IG. Her baseline M protein was 2.87 g/dL. She was mildly anemic and she had significantly elevated sedimentation rate. She had normal renal function and negative 24-hour urine protein electrophoresis. Skeletal survey showed no lytic bone involvement. PET/CT and MRI both showed findings suspicious for involvement of the T1 vertebral body. She was not overtly symptomatic with it. 2. Pulmonary emboli diagnosed by CT pulmonary angiogram in October 2019. She has been on anticoagulation with apixaban. 3. Hypertension. 4. Hyperlipidemia. 5. Coronary artery disease with angioplasty/stent placement in February 2016. 6. Hypothyroidism. 7. GERD. 8. Degenerative arthritis/degenerative disease of the spine. 9. Fibromyalgia. 10. Anxiety/depression. Problems Addressed with this Encounter and Plan: 1. Patient with IgG kappa myeloma, initially diagnosed in April 2017.. Her FISH panel showed gain of chromosome 1q, deletions of RB 1 and LAMP1, and gain of IG. Her baseline M protein was 2.87 g/dL. She was considered transplant ineligible due to being [employer] and not willing to accept transfusion. Her myeloma therapy included: 1. 1st-line treatment with Revlimid/Velcade/dexamethasone from August 2017 through May 2018. She did show some response, but she tolerated it poorly, and she had required treatment interruptions and dose reductions. 2. 2nd line therapy with Revlimid/ixazomib/dexamethasone beginning in July 2018 and continued through April 2019. She again did have some response, but it was put on hold at that point due to persistent neutropenia. 3. 3rd line treatment with daratumumab/carfilzomib/dexamethasone from July thru April 2020. She again tolerated it rather poorly, requiring dose attenuations. Her treatment was complicated by pulmonary emboli for which she began on anticoagulation with apixaban. She did have evidence of response by M protein. However, since February 2020 there was a gradual increase in her M protein level and in her kappa/lambda ratio, so that she was again showing disease progression. 4. On 07/21/2020 she began on 4th line treatment with pomalidomide in combination with elotuzumab and dexamethasone, but with pomalidomide administered at a reduced dosage due to prior toxicities she had experienced with lenalidomide. She initially appeared to tolerate the treatment well, and she continued with cycle 2 on on 08/26/2020. At day 15 her treatment was put on hold due to drop in her neutrophil count to 1000. She has since then remained off treatment, thus far with no significant recovery in her neutrophil count. However, there has been a significant increase in her M protein and her free kappa light chain, consistent with progression of the myeloma. I reviewed some options for further management, which are limited. At this point the best choice may be belantamab mafodotin. I would also like to determine whether or not she may be eligible for CAR-T therapy. Her management is further complicated by the fact that she is planning to move to [place] within the next 1 to 2 months. Her current lab studies are still pending. If her disease does not appear to be showing significant progression now, it may be best to defer starting more treatment until she gets to [place]. 2. Pulmonary emboli diagnosed by CT pulmonary angiogram in October 2019. She remains on anticoagulation with apixaban. 3. She continues to complain of significant low back pain. Based on her recent MRI, this appears to be more likely due to underlying degenerative disease, and I will see if I can arrange for her to have treatment through pain clinic with Dr. Salmon. Signed By: Sean Sanchez M.D. <<Signature on File>>
== END 2020-12-30 12:35 | disposition home or self-care (01) ==
LOC: ONCMED 12:38
PROVIDERS: PCP Internal Medicine; Visit Provider Internal Medicine Medical Oncology
DX: C90.00 Multiple myeloma not having achieved remission (principal); C79.51 Secondary malignant neoplasm of bone; Z86.711 Personal history of pulmonary embolism; Z79.01 Long term (current) use of anticoagulants; I10 Essential (primary) hypertension; E78.5 Hyperlipidemia, unspecified; I25.10 Atherosclerotic heart disease of native coronary artery without angina pectoris; Z95.5 Presence of coronary angioplasty implant and graft; E03.9 Hypothyroidism, unspecified; K21.9 Gastro-esophageal reflux disease without esophagitis; M47.9 Spondylosis, unspecified; M79.7 Fibromyalgia; F41.9 Anxiety disorder, unspecified; F32.9 Major depressive disorder, single episode, unspecified; Z79.899 Other long term (current) drug therapy; Z92.21 Personal history of antineoplastic chemotherapy
CPT/HCPCS: 36415; 36591; 80053; 82784; 83883; 84155; 84165; 85025; 99214

== ENCOUNTER 2021-01-11 16:12 | Outpatient (CLI) | payer MEDICARE, SELFPAY ==
[2021-01-11] MEDS: alteplase 1 mg/mL SDV 2 mL 2 MG INTRACATH (16:45)
[2021-01-11 17:15] LABS: Basophils % 0.5 %; Eosinophils % 0.5 %; Hematocrit 29.4 % (37.0-47.0); Hemoglobin 9.3 g/dL (11.5-15.3); Lymphocytes % 75.5 %; Mean Corpuscular HGB Conc 31.6 g/dL (30.0-36.0); Mean Corpuscular Hemoglobin 30.1 pg (28.0-34.0); Mean Corpuscular Volume 95.1 fl (81-99); Mean Platelet Volume 9.4 fL (7.4-10.4); Monocytes # 0.4 10^3/uL (0.2-0.9); Monocytes % 8.8 %; Neutrophils % 14.7 %; Nucleated Red Blood Cells % 0 %; Platelet Count 97 10^3/cmm (130-400); Red Blood Count 3.09 10^6/uL (4.1-5.3); Red Cell Distribution Width 17.9 % (12.1-15.1)
[2021-01-11 17:47] LABS: Alanine Aminotransferase 13 U/L (0-33); Albumin Level 3.7 g/dL (3.5-5.2); Alkaline Phosphatase 89 IU/L (35-105); Aspartate Amino Transferase 19 U/L (0-32); Blood Urea Nitrogen 10 mg/dL (8-23); Calcium 8.8 mg/dL (8.5-10.5); Carbon Dioxide 28 mmol/L (22-29); Chloride 100 mmol/L (98-107); Globulin 5.7 g/dL (1.3-4.6); Glomerular Filtration Rate 61.9 mL/min (90-130); Glucose 90 mg/dL (65-115); Osmolality Calculated 281 mOsm/kg (285-295); Sodium 136 mmol/L (136-145); Total Bilirubin 0.3 mg/dL (0.15-1.2); Total Protein 9.4 g/dL (6.6-8.7)
[2021-01-11 18:15] LABS: Slide Review Slide Review Perform
[2021-01-11 18:17] LABS: Neutrophils # 0.59 10^3/uL (1.8-7.7)
== END 2021-01-11 16:13 | disposition home or self-care (01) ==
LOC: ONCMED 16:14
PROVIDERS: Nurse Practitioner; PCP Internal Medicine; Visit Provider Internal Medicine Medical Oncology
DX: C90.00 Multiple myeloma not having achieved remission (principal); I10 Essential (primary) hypertension; E78.5 Hyperlipidemia, unspecified; I25.10 Atherosclerotic heart disease of native coronary artery without angina pectoris
CPT/HCPCS: 36415; 36593; 80053; 85025; 96374; J2997

== ENCOUNTER → 2021-01-12 09:06 | Outpatient (BNVA) | payer MEDICARE, SELFPAY | PROVIDERS: PCP Internal Medicine; Referring Provider Internal Medicine Medical Oncology; Visit Provider Anesthesiology Pain Medicine | DX: G89.29 Other chronic pain (principal); M51.36 Other intervertebral disc degeneration, lumbar region; M47.816 Spondylosis without myelopathy or radiculopathy, lumbar region; Z79.891 Long term (current) use of opiate analgesic | CPT/HCPCS: 99204 ==

== ENCOUNTER 2021-01-12 13:22 | Outpatient (CLI) | payer MEDICARE, SELFPAY ==
[2021-01-12] MEDS: acetaminophen 325 mg Tablet 650 MG PO (14:45)
[2021-01-12] MEDS: sodium chloride 0.9% 250 ML 999 ML IV (14:45)
[2021-01-12] MEDS: ondansetron 2 mg/ML SDV 2 mL 8 MG IVP (14:46)
[2021-01-12] MEDS: diphenhydrAMINE 50 mg/mL SDV 1mL 25 MG IVP (14:46)
[2021-01-12 15:38] LABS: Vitamin B12 357 pg/mL (232-1245)
--- NOTE | 2021-01-12 20:15 | ONC FU_ITS ---
Dr. Sanchez Patient Follow-Up Note Patient: Karely Armenta Unit #: [id number]: 1950 Dicatated By: Sean Sanchez M.D.Date of Visit:Jan 12, 2021 Onc Med Follow-up/Prog Note Chief Complaint: Myeloma. History of Present Illness: This is a 70 year-old woman with IgG kappa myeloma. She was found to be moderately anemic in December 2016 when she was admitted to the hospital with pneumonia. She also reported having had an illness the preceding summer, in October or November, which may have been tick fever, but that was never confirmed. Her follow-up laboratory studies with Dr. Garcia on 05/03/2017 included CBC showing hemoglobin 11.9 g with white blood cell count 5100 and platelet count 155,000. Her sedimentation rate was significantly elevated at 94 mm/hour. The chem profile showed normal renal function with BUN 13 and creatinine 0.96 mg/dL. Calcium was normal at 9.0 mg/dL. Protein electrophoresis showed a monoclonal protein quantitating at 2.5 g/dL. Immunofixation showed an IgG kappa paraprotein measuring 2.87 g/dL. Hepatits screen was nonreactive to hepatitis C, hepatitis Bs antigen, and hepatitis B core total Ab referral. The hepatitis B surface antibody was < 3.10. LDH was normal at 149 U/L. The beta-2 microglobulin was slightly elevated at 0.420 mg/dL. I had seen her initially on 05/11/2017. Repeat protein electrophoresis with immunofixation prior to that visit, from 05/09/2017, showed IgG kappa monoclonal protein quantitating at 2.87 g/dL. The kappa light chain was elevated at 177.96 mg/L with lambda light chain 1.73 mg/L and kappa/lambda ratio elevated at 102. On her further evaluation there was no monoclonal protein detected in a 24-hour urine specimen. Skeletal survey on 05/11/2017 showed cervical and lumbar spondylosis and bilateral hip joint osteoarthritic changes. There was no radiographic evidence of multiple myeloma. She underwent bone marrow aspiration/biopsy on 05/17/2017. The cellularity was estimated at 70% with 32% plasma cells. Iron stores were noted to be absent. The FISH panel for myeloma showed gain of chromosome 1q, deletions of RB 1 and LAMP1, and gain of IG. The standard chromosome analysis was normal. Overall, the findings were consistent with plasma cell neoplasm/myeloma. Staging PET/CT on 06/03/2017 showed a single FDG avid osteolytic site in the T1 vertebral body which was felt to possibly represent multiple myeloma. She then had further evaluation with MRI of the spine on 07/12/2017. There were significant degenerative changes in the cervical spine which included moderate central canal stenosis at C4-C5, C5-C6, and C7 as well as bilateral nerve root encroachment at C5, C6, and C7. There were also degenerative changes in the lumbar spine with interval STIR signal abnormality and enhancement of T10-L5 spinous processes suggesting possible myelomatous changes. The thoracic spine showed subtle diffuse signal and enhancement abnormality involving the T1 vertebral body. In correlation with the PET/CT findings, this was felt to be suspicious for neoplastic process, including multiple myeloma. There were no actual lytic lesions identified. She began treatment with Velcade/Revlimid/dexamethasone in August 2017. She tolerated it rather poorly, and she did require treatment interruptions and dose reductions, but she idd show evidence for response. As of April 2018, during her 9th cycle, her M protein had declined to 0.84 g/dL. She continued with cycle 10 in May 2018. However, a repeat protein electrophoresis on 07/20/2018 showed an increase in the M protein to 1.4 g/dL. The free light chain assay showed and increase in the free kappa light chain to 83.8 mg/L with elevated kappa/lambda ratio at 28.90. In August 2018 she began second line treatment with Revlimid/ixazomib/dexamethasone. Due to her previous toxicities with Revlimid, it was initiated at a reduced dosage of 10 mg daily on a 21/28 day schedule with ixazomib dosed at 4 mg on days 18 and 15 and the dexamethasone dose at 40 mg weekly. She was able to tolerate it with acceptable toxicity. As of 05/06/2019 her treatment was put on hold due to persistent neutropenia. In May 2019 she had taken a trip to [place], and while she was there she became very ill and required treatment for pneumonia. She returned here for a follow-up visit in June. Her repeat protein electrophoresis on 07/02/2019 showed increase in the M protein to 2.0 g/dL. Her free light chain assay showed increased kappa light chain to 142 mg/L with lambda light chain 2.9 mg/L, and elevated kappa/lambda ratio at 49.38. Restaging PET/CT on 07/13/2019 showed stable findings in the T1 lesion with FDG activity no greater than that of marrow background, consistent with successfully treated disease. There was no evidence of any new lesions. However, with the significant increase in the M protein and in the kappa free light chain, she was recommended to proceed with 3rd line treatment with daratumumab in combination with carfilzomib and dexamethasone. Her baseline echocardiogram showed normal left ventricular function with ejection fraction estimated at 60%. She returned to begin cycle 1 of daratumumab/carfilzomib/dexamethasone on 08/12/2019. The initial infusion of daratumumab was administered in divided doses over 2 days. She tolerated the treatment well. However, her day 8 treatment was complicated by nausea and profuse diaphoresis, which she attributed to the daratumumab. She was able to complete her day 9 carfilzomib treatment. Her day 15/16 treatment was withheld due to a drop in her white blood cell count to 2000 with her ANC at 1000. She did not have fever or other complications. She was given her week 3 daratumumab the following week, but I did opt to split the dosage over 2 days. She tolerated it with no adverse effects. She continued with cycle 2 on 09/11/2019 with the carfilzomib administered at a reduced dosage and with the daratumumab administered in a split dosage. She continued to have anemia, moderately severe neutropenia, and mild thrombocytopenia, but she was able to tolerate the treatment with acceptable toxicity. As of 10/02/2019 the M protein had decreased to 1.1 g/dL. She proceeded with cycle 3 on 10/09/2019. At cycle 3-day 15, on 10/22/2019, her carfilzomib was omitted due to neutropenia, ANC 1400. She did receive her 8th weekly infusion of daratumumab, administered as a single infusion. At that time she also was complaining increased shortness of breath, and a CT pulmonary angiogram showed small filling defects in both the right and left secondary pulmonary arteries consistent with thromboembolic disease. Altered perfusion was seen in those areas. As it did appear to be clinically significant, she was started on anticoagulation with apixaban. She continued with her 4th cycle of treatment on 11/06/2019 with the daratumumab administered at 2-week intervals. At that point her M protein was stable at 1.2 g/dL. The serum free light chain assay, though, did show a decline in her free kappa light chain from 143.7 to 100.6 mg/L. She began cycle 5 on 12/04/2019. Her M protein was down slightly, to 1.1 g/dL. As of 01/01/2020 it had further declined to 0.9 g/dL. She continued with her 6th cycle of treatment, and she then continued with cycle 7 on 02/19/2020 and with cycle 8 on 03/18/2020. At that point her M protein has increased to 1.5 g/dL. In March she underwent a dental extraction/implant procedure. The procedure was complicated by persistent defect in her left upper gum/maxillary bone. She continued with cycle 9 of daratumumab/carfilzomib/dexamethasone on 04/15/2020. She then received a scheduled infusion of daratumumab on 05/12/2020. Her repeat protein electrophoresis at that time showed further increase in the M protein to 2.1 g/dL. Her treatment was put on hold. Her other medical illnesses include hypertension, hyperlipidemia, coronary artery disease, hypothyroidism, GERD, fibromyalgia, degenerative arthritis, and anxiety/depression. Her surgical/procedural history includes coronary angioplasty/stent placement 2015. She has arthroscopic left knee surgery, and she also has had surgery on the right shoulder. She has history of smoking for 25 years, from 1-3 packs of cigarettes daily. She quit smoking in 1989. She has had just occasional alcohol use. She is [employer]ism, and she will not accept blood products. INTERIM HISTORY: On 07/21/2020 she began further treatment with pomalidomide in combination with elotuzumab and dexamethasone. In view of the side effects she had experienced with lenalidomide, the pomalidomide was started at a reduced dosage (2 mg) administered on a 21/28-day schedule. She initially tolerated the treatment well at the reduced dosage of pomalidomide, and she continued with cycle 2 on 08/26/2020. Her repeat protein electrophoresis at that point had shown a slight decline in the M protein, to 2.0 g/dL. She continued with her cycle 2-day 8 treatment on 09/02/2020. However, at day 15 her treatment was put on hold due to a drop in her white blood cell count to 2500 with absolute neutrophil count 1000. Her blood counts were then monitored weekly. As of 10/15/2019 when her white blood cell count remained low at 2200 with absolute neutrophil count 700. Her repeat protein electrophoresis at that time showed increase in her M protein to 2.5 g/dL. Her free light chain assay showed elevated free kappa light chain at 248.6 mg/L with lambda light chain 2.2 mg/L and elevated kappa/lambda ratio at 113. At her follow-up visit on 10/21/2020 she was complaining of increased pain in the lower back area. Further evaluation with MRI of the lumbar spine on 11/30/2020 showed no evidence of enhancing myelomatous lesions. There was evidence of disc bulging which was worse at the L3-L4 and L4-L5 levels, slightly progressed compared to the previous study from 2018. There was no high-grade central canal stenosis. Tiny right subarticular protrusion was noted to impinge the traversing right L5 nerve root in the subarticular recess. There was mild right foraminal narrowing. There was also mild left L5-S1 bony foraminal narrowing. In the absence of any evidence of involvement with myeloma, she was referred to back to pain clinic for management of the back pain. She was seen for a follow-up visit on 12/30/2020. I had discussed some options for further treatment,, which I had hoped to be able to put off, as she had plans to move to [place] within the next 1 to 2 months. Her repeat protein electrophoresis, though, showed a significant further increase in the M protein to 3.4 g/dL. Her serum free light chain showed further increase in the free kappa light chain to 442.1 mg/L with free lambda light chain 2.0 mg/L and elevated kappa/lambda ratio at 221.05. With those findings, she returns now to initiate salvage therapy with belantamab mafodotin. Medications: amLODIPine Besylate 1 Tablet (of 5 mg) Oral daily, Amoxicillin-Pot Clavulanate 1 Tablet (of 875-125 mg) Oral daily for 10 days, Body/Hair/Skin/Nails 2 Capsule Oral daily, Nmylwfdzrf-YUKU-Vhqo-Cod 1 (66-560-00-30 mg) Capsule Oral four times a day PRN, Jwmnhhxhnh-CKOL-Edjwkxld 1 Capsule (of 50-325-40 mg) Oral daily PRN, Cholecalciferol 2 (1000 Units) Capsule Oral daily, Curcumin 95 1 (500 mg) Capsule Oral daily PRN, Cymbalta 1 (60 mg) Capsule Delayed Release Particles Oral daily, Eliquis 1 Tablet (of 2.5 mg) Oral b.i.d., Flagyl 1 Tablet (of 500 mg) Oral daily, Furosemide 1 Tablet (of 20 mg) Oral daily PRN, Levothyroxine Sodium 1 (50 mcg) Tablet Oral daily, LORazepam 0.5 - 1 (1 mg) Tablet Oral q 4 hours PRN, Metoprolol Tartrate 1 Tablet (of 50 mg) Oral daily, Multivitamin Adult 1 Tablet Oral daily, Nitroglycerin 1 (400 mcg/spray) Aerosol, solution Translingual PRN, OxyCODONE HCl 1 (30 mg) Tablet Oral 5x/d PRN, Pantoprazole Sodium 1 Tablet (of 40 mg) Tablet, enteric coated Oral daily, Potassium Chloride ER 1 Tablet (of 10 meq) Tablet, controlled release Oral daily PRN, Pravastatin Sodium 1 (40 mg) Tablet Oral daily, Prochlorperazine Maleate 1 (10 mg) Tablet Oral four times a day PRN, QUEtiapine Fumarate 2 Tablet (of 25 mg) Oral at bedtime, Soma 1 (350 mg) Tablet Oral four times a day PRN Allergies: Codeine Sulfate, LevoFLOXacin, and Vicodin. Vital Signs: Performed on Jan 12, 2021 14:30 Height - 66.00 in Weight - 161 lbs (LOW) BSA - 1.82 sq.m BMI - 25.99 Temperature - 98.5 F Pulse - 66 /min Respiration - 20 /min BP - 178/82 mm(hg) (HIGH) O2 Sat - 99 % Pain - 0 Fatigue - 0 Lab/Imaging: Test performed on Dec 30, 2020 12:50 Sodium 134 mmol/L Potassium 4.4 mmol/L Chloride 101 mmol/L CO2 27 mmol/L Anion Gap 10.4 BUN 7 mg/dL Creatinine 0.7 mg/dL Cr Clearance (Est) 86.0000 mL/min eGFR 82.7 mL/min Glucose 71 mg/dL Osmolality - Calculated 274 mOsm/kg Calcium 8.0 mg/dL Protein, Total 8.8 g/dL Albumin 3.4 g/dL Globulin 5.4 g/dL Bilirubin, Total 0.2 mg/dL ALT (SGPT) 10 U/L AST (SGOT) 16 U/L Alkaline Phosphatase 91 IU/L WBC 3.5 10 3/uL RBC 3.16 10 6/uL HGB 9.5 g/dL HCT 30.0 % MCV 94.9 fL MCH 30.1 pg MCHC 31.7 g/dL RDW 18.5 % Platelet Count 97 10 3/cmm MPV 9.1 fL Neutrophils 0.59 10 3/uL Lymphocytes 2.6 10 3/uL Monocytes 0.3 10 3/uL Eosinophils 0.0 10 3/uL Basophils 0.0 10 3/uL Neutrophil % 16.8 % Lymphocyte % 73.1 % Monocyte % 8.9 % Eosinophil % 0.6 % Basophils % 0.6 % NRBC % 0 % CBC Slide Review Slide Review Perform [place] Free Light Chains 442.1 mg/L Lambda Free Light Chains 2.0 mg/L IgA 50 mg/dL [place]/Lambda Free Ratio 221.05 Problem List: 1. IgG kappa myeloma. Bone marrow aspiration/biopsy on 05/17/2017 showed 32% plasma cells, consistent with myeloma. The FISH panel showed gain of chromosome 1q, deletions of RB 1 and LAMP1, and gain of IG. Her baseline M protein was 2.87 g/dL. She was mildly anemic and she had significantly elevated sedimentation rate. She had normal renal function and negative 24-hour urine protein electrophoresis. Skeletal survey showed no lytic bone involvement. PET/CT and MRI both showed findings suspicious for involvement of the T1 vertebral body. She was not overtly symptomatic with it. 2. Pulmonary emboli diagnosed by CT pulmonary angiogram in October 2019. She has been on anticoagulation with apixaban. 3. Hypertension. 4. Hyperlipidemia. 5. Coronary artery disease with angioplasty/stent placement in February 2016. 6. Hypothyroidism. 7. GERD. 8. Degenerative arthritis/degenerative disease of the spine. 9. Fibromyalgia. 10. Anxiety/depression. Problems Addressed with this Encounter and Plan: 1. Patient with IgG kappa myeloma, initially diagnosed in April 2017.. Her FISH panel showed gain of chromosome 1q, deletions of RB 1 and LAMP1, and gain of IG. Her baseline M protein was 2.87 g/dL. She was considered transplant ineligible due to being Pent[employer]alism and not willing to accept transfusion. Her myeloma therapy included: 1. 1st-line treatment with Revlimid/Velcade/dexamethasone from August 2017 through May 2018. She did show some response, but she tolerated it poorly, and she had required treatment interruptions and dose reductions. 2. 2nd line therapy with Revlimid/ixazomib/dexamethasone beginning in July 2018 and continued through April 2019. She again did have some response, but it was put on hold at that point due to persistent neutropenia. 3. 3rd line treatment with daratumumab/carfilzomib/dexamethasone from July thru April 2020. She again tolerated it rather poorly, requiring dose attenuations. Her treatment was complicated by pulmonary emboli for which she began on anticoagulation with apixaban. She did have evidence of response by M protein. However, since February 2020 there was a gradual increase in her M protein level and in her kappa/lambda ratio, so that she was again showing disease progression. 4. On 07/21/2020 she began on 4th line treatment with pomalidomide in combination with elotuzumab and dexamethasone, but with pomalidomide administered at a reduced dosage due to prior toxicities she had experienced with lenalidomide. She initially appeared to tolerate the treatment well, and she continued with cycle 2 on on 08/26/2020. At day 15 her treatment was put on hold due to drop in her neutrophil count to 1000. During followup she has had persistent neutropenia. There also now has been further decrease in her hemoglobin/hematocrit levels, and her platelet count is slightly low. There has been progressive increase in her M protein and in her free kappa light chain, consistent with further progression of the myeloma. With limited options available, she will now start a trial of salvage therapy with belantamab mafodotin. I reviewed potential side effects including the risk of ocular toxicity and infusion reaction as well as fatigue, GI side effects, and low blood counts, among others. The baseline neutropenia is an obvious concern and a significant risk. She has had her pretreatment eye exam. Her blood counts will be monitored weekly. She will be scheduled for a followup visit in 3 weeks. 2. Pulmonary emboli diagnosed by CT pulmonary angiogram in October 2019. She remains on anticoagulation with apixaban. 3. She continued to complain of significant low back pain. Based on her recent MRI, this appeared to be more likely due to underlying degenerative disease. She is receiving treatment thru pain clinic. Signed By: Sean Sanchez M.D. <<Signature on File>>
== END 2021-01-12 13:23 | disposition home or self-care (01) ==
PROVIDERS: PCP Internal Medicine; Visit Provider Internal Medicine Medical Oncology
DX: Z51.12 Encounter for antineoplastic immunotherapy (principal); C90.00 Multiple myeloma not having achieved remission; C79.51 Secondary malignant neoplasm of bone; D64.9 Anemia, unspecified; I26.99 Other pulmonary embolism without acute cor pulmonale; Z79.01 Long term (current) use of anticoagulants; I10 Essential (primary) hypertension; E78.5 Hyperlipidemia, unspecified; I25.10 Atherosclerotic heart disease of native coronary artery without angina pectoris; Z95.5 Presence of coronary angioplasty implant and graft; E03.9 Hypothyroidism, unspecified; K21.9 Gastro-esophageal reflux disease without esophagitis; M47.9 Spondylosis, unspecified; M79.7 Fibromyalgia; F41.9 Anxiety disorder, unspecified; F32.9 Major depressive disorder, single episode, unspecified; Z79.899 Other long term (current) drug therapy
CPT/HCPCS: 82607; 96375; 96413; 99204; 99215; J1200; J2405; J7050; J9037

== ENCOUNTER 2021-01-18 14:58 | Outpatient (CLI) | payer MEDICARE, SELFPAY ==
[2021-01-18] MEDS: ondansetron 2 mg/ML SDV 2 mL 8 MG IVP (15:29)
[2021-01-18] MEDS: sodium chloride 0.9% 1,000 ML 999 ML IV (15:30)
[2021-01-18 15:49] LABS: Basophils % 0.6 %; Eosinophils % 0.6 %; Hematocrit 28.8 % (37.0-47.0); Hemoglobin 9.6 g/dL (11.5-15.3); Lymphocytes # 1.6 10^3/uL (0.8-4.8); Lymphocytes % 47.4 %; Mean Corpuscular HGB Conc 33.3 g/dL (30.0-36.0); Mean Corpuscular Volume 92.9 fl (81-99); Mean Platelet Volume 10.3 fL (7.4-10.4); Monocytes # 0.5 10^3/uL (0.2-0.9); Monocytes % 13.7 %; Neutrophils # 1.28 10^3/uL (1.8-7.7); Neutrophils % 37.1 %; Nucleated Red Blood Cells % 0 %; Platelet Count 60 10^3/cmm (130-400); Red Cell Distribution Width 16.9 % (12.1-15.1); White Blood Count 3.4 10^3/uL (4.0-10.0)
[2021-01-18 16:12] LABS: Alanine Aminotransferase 12 U/L (0-33); Albumin Level 3.5 g/dL (3.5-5.2); Alkaline Phosphatase 82 IU/L (35-105); Anion Gap 13.2 (5-19); Aspartate Amino Transferase 37 U/L (0-32); Blood Urea Nitrogen 6 mg/dL (8-23); Calcium 8.8 mg/dL (8.5-10.5); Carbon Dioxide 26 mmol/L (22-29); Chloride 97 mmol/L (98-107); Globulin 5.9 g/dL (1.3-4.6); Glomerular Filtration Rate 82.7 mL/min (90-130); Glucose 98 mg/dL (65-115); Osmolality Calculated 274 mOsm/kg (285-295); Potassium 3.2 mmol/L (3.5-5.1); Sodium 133 mmol/L (136-145); Total Bilirubin 0.2 mg/dL (0.15-1.2); Total Protein 9.4 g/dL (6.6-8.7)
== END 2021-01-18 14:59 | disposition home or self-care (01) ==
LOC: ONCMED 14:58
PROVIDERS: PCP Internal Medicine; Visit Provider Internal Medicine Medical Oncology
DX: C90.00 Multiple myeloma not having achieved remission (principal); Z79.899 Other long term (current) drug therapy
CPT/HCPCS: 80053; 85025; 96361; 96374; J2405; J7030

== ENCOUNTER 2021-01-28 09:09 | Emergency (ER) | payer MEDICARE, SELFPAY ==
[2021-01-28 09:27] VITALS: BP 183/79; PULSE 91; RESP 16; TEMP 36.4; O2SAT 95; BMI 25.0
[2021-01-28 09:33] VITALS: PULSE 99; RESP 18; O2SAT 99
[2021-01-28 09:39] VITALS: BP 177/89
--- NOTE | 2021-01-28 10:08 | W.ED.ANIMALB ---
HPI - Animal Bite General: Chief Complaint: Animal Bite Stated Complaint: dog bite left hand Time Seen by Provider: 01/28/21 09:12 History of Present Illness: HPI narrative: 70-year-old female was at a friend's house playing with her dog she was petting the dog and was bitten on her left hand there is a large defect in the hyperthenar eminence. From her description the bite seem unprovoked. The dog is up-to-date on his immunizations is a known animal and is able to be monitored. No other injuries. MD complaint: animal bite Onset (ago): minute(s) Animal: dog Description of animal: household pet Mechanism: bite Location - Extremities: Left: hand Pain description: sharp Associated symptoms: Reports no associated symptoms; Deny chills or fever(s) Treatments prior to arrival: wound dressing(s) Review of Systems Const: Denies: fever(s), chills, body aches, change in appetite, fatigue or malaise ENMT: Denies: throat pain, ear or mastoid pain, nasal discharge or nasal congestion Card: Denies: chest pain, edema, dyspnea on exertion or orthopnea Resp: Denies: dyspnea, productive cough or non-productive cough GI: Denies: abdominal pain, nausea, vomiting, hematemesis, coffee ground emesis, diarrhea, constipation, bloating, hematochezia or melena : Denies: flank pain, difficulty voiding, dysuria, urinary frequency or urinary urgency Skin/Breast: Denies: rash or pruritus PFSH ED PFSH: Medical History CAD (coronary artery disease) Chronic back pain GERD (gastroesophageal reflux disease) Hyperlipidemia Hypertension Hypothyroidism Multiple myeloma Pulmonary embolism Surgical History H/O esophagogastroduodenoscopy History of arthroscopic knee surgery Left History of arthroscopic surgery of shoulder Right History of coronary artery stent placement Port-A-Cath in place 07/29/2019: Left subclavian Status post colonoscopy Family History Other CAD (coronary artery disease) Diabetes Hypertension Stroke Denies family history of Anesthesia complication Bleeding disorder Social History Smoking and tobacco status: former smoker Alcohol intake: current Alcohol intake frequency: holidays/special occasions only Physical Exam Const: COMMON NORMALS: no acute distress GENERAL APPEARANCE: cooperative and comfortable ORIENTATION/CONSCIOUSNESS: Yes awake, Yes oriented to person, Yes oriented to place and Yes oriented to time HENMT: COMMON NORMALS: normocephalic, atraumatic and hearing grossly normal bilaterally HEAD & SCALP: normocephalic and atraumatic Resp: COMMON NORMALS: normal respiratory effort, No retractions, No use of accessory muscles and clear to auscultation bilaterally AUSCULTATION: clear to auscultation bilaterally Cardio: COMMON NORMALS: regular rate, regular rhythm and No murmurs present (Cardio) RATE: regular rate RHYTHM: regular rhythm Extremity: OTHER: Large tissue defect in the left thenar eminence with exposure of underlying muscle. Unable to reapproximate the tissue edges. No significant active bleeding. Patient has full range of motion. Neuro: SENSORIUM/ORIENTATION: Yes oriented to person, Yes oriented to place and Yes oriented to time Course Vital Signs: Vital signs: Vital Signs Temperature 97.5 F L 01/28/21 09:27 Pulse Rate 99 01/28/21 09:33 Respiratory Rate 18 01/28/21 09:33 Blood Pressure 177/89 01/28/21 09:39 Pulse Oximetry 99 01/28/21 09:33 MDM - Animal Bite MDM Narrative: Medical decision making narrative: Large tissue defect not amenable to suture repair at this point. Patient given Ancef tetanus updated put on Augmentin for 5 days prophylactically. Will make arrangements for her to see hand surgery. At some point she may either need some kind of skin grafting or tissue flap rotation to cover the defect. Return if has any signs of infection. Discharge Plan Discharge Patient Disposition: Home Clinical Impression: Dog bite of left hand Condition: Stable Prescriptions: New Augmentin 875-125 mg tablet 1 tab PO BID Qty: 10 RF: 0 No Action multivitamin Tablet 1 tab PO DAILY RF: 0 multivitamin with minerals [Hair,Skin and Nails] Tablet 1 tab PO DAILY RF: 0 amlodipine 5 mg tablet 5 mg PO DAILY RF: 0 pantoprazole 40 mg tablet,delayed release (DR/EC) 40 mg PO DAILY RF: 0 carisoprodol [Soma] 350 mg tablet 350 mg PO QID RF: 0 lorazepam [Ativan] 1 mg tablet 1 mg PO BID PRN (Reason: anxiety) RF: 0 duloxetine [Cymbalta] 60 mg capsule,delayed release(DR/EC) 60 mg PO DAILY RF: 0 pravastatin 80 mg tablet 80 mg PO DAILY RF: 0 quetiapine [Seroquel] 50 mg tablet 50 mg PO DAILY RF: 0 prochlorperazine maleate 10 mg tablet 10 mg PO QID PRN (Reason: Nausea) RF: 0 hydrochlorothiazide 12.5 mg tablet 12.5 mg PO DAILY PRN (Reason: Edema) RF: 0 oxycodone 30 mg tablet 30 - 60 mg PO Q4H PRN (Reason: Pain) RF: 0 metoprolol succinate 50 mg tablet extended release 24 hr 50 mg PO DAILY RF: 0 acyclovir 400 mg tablet 400 mg PO BID RF: 0 jzmavlzkwj-zvpofzegzcfrx-asee 50-325-40 mg tablet 1 tab PO QID PRN (Reason: Migraine Headache) RF: 0 levothyroxine 50 mcg tablet 50 mcg PO QAM RF: 0 dexamethasone 4 mg tablet See Rx Instructions .ROUTE .COMPLEX RF: 0 fluticasone propionate 50 mcg/actuation spray,suspension 2 spray INTRANASAL DAILY PRN (Reason: Allergy Symptoms) RF: 0 Eliquis 5 mg tablet 2.5 mg PO BID RF: 0 Discharge Orders: Discharge ED (Routine); Ordered 01/28/21 Ordered By: Chano Enriquez Referrals: Earlene Garcia MD [Primary Care Provider] - Discharge Diet: Usual diet Discharge Activity: Limit activity as instructed Patient Instructions: Opioid Safety Activity Restrictions/Additional Instructions: hotel assistant general manager will make arrangements for you to see hand specialist. Change dressing once a day lightly apply double antibiotic ointment [id number] to the wound. Return if you have for signs of infection. Coding Level of Care Code ED Handle Sewer for Salome Subramanian
[2021-01-28] MEDS: ondansetron 2 mg/ML SDV 2 mL 4 MG IVP (10:15)
[2021-01-28] MEDS: sodium chloride 0.9% (100 ml) 100 ML 200 ML (10:15)
[2021-01-28] MEDS: ceFAZolin 1,000 mg SDV 1000 MG IVP (10:15)
[2021-01-28] MEDS: tetanus-dipt-pertussis 0.5 mL SDV IM (10:15)
--- NOTE | 2021-01-28 10:26 | PC.PHAR ---
Addendum entered by Patrica Dye 01/28/21 10:28: pt states she is taking 2.5mg bid of eliquis rx filled on 12/30/20 90d/s for 5mg bid Original Note: pt states she takes care of her own medications-pt states she hasnt taken revlimid for at least 6 months-
[2021-01-28 11:08] VITALS: BP 164/80; PULSE 83; RESP 18; O2SAT 100
--- NOTE | 2021-01-28 12:02 | DCPLANNER ---
internal audit senior manager was asked to schedule a follow up appointment for patient with a hand specialist in [place]. internal audit senior manager spoke with patient, she stated that she wanted the referral to [facility]. internal audit senior manager faxed patients information to the [facility]. Clinic will call patient with appointment information.
--- NOTE | 2021-02-03 15:20 | DCPLANNER ---
Patient has a follow up appointment scheduled for 02.08.21 at [facility] will call patient with appointment information.
== END 2021-01-28 11:08 | disposition home or self-care (01) ==
PROVIDERS: Emergency Provider Family Medicine; PCP Internal Medicine
DX: S61.452A Open bite of left hand, initial encounter (principal); W54.0XXA Bitten by dog, initial encounter; Z79.01 Long term (current) use of anticoagulants; I25.10 Atherosclerotic heart disease of native coronary artery without angina pectoris; E78.5 Hyperlipidemia, unspecified; I10 Essential (primary) hypertension; Z86.711 Personal history of pulmonary embolism; Z87.891 Personal history of nicotine dependence; Z23 Encounter for immunization
CPT/HCPCS: 90471; 90715; 96374; 96375; 99284; J0690; J2405

== ENCOUNTER 2021-02-02 14:44 | Outpatient (CLI) | payer MEDICARE, SELFPAY ==
[2021-02-02 15:26] LABS: Basophils % 0.6 %; Eosinophils % 1.2 %; Hematocrit 28.2 % (37.0-47.0); Hemoglobin 9.1 g/dL (11.5-15.3); Lymphocytes # 1.9 10^3/uL (0.8-4.8); Mean Corpuscular HGB Conc 32.3 g/dL (30.0-36.0); Mean Corpuscular Hemoglobin 30.2 pg (28.0-34.0); Mean Corpuscular Volume 93.7 fl (81-99); Mean Platelet Volume 10.1 fL (7.4-10.4); Monocytes # 0.3 10^3/uL (0.2-0.9); Monocytes % 9.9 %; Neutrophils # 1.08 10^3/uL (1.8-7.7); Neutrophils % 32.3 %; Nucleated Red Blood Cells % 0 %; Platelet Count 118 10^3/cmm (130-400); Red Blood Count 3.01 10^6/uL (4.1-5.3); Red Cell Distribution Width 16.6 % (12.1-15.1); White Blood Count 3.3 10^3/uL (4.0-10.0)
[2021-02-02 15:54] LABS: Alanine Aminotransferase 8 U/L (0-33); Albumin Level 3.4 g/dL (3.5-5.2); Alkaline Phosphatase 86 IU/L (35-105); Anion Gap 12.8 (5-19); Aspartate Amino Transferase 17 U/L (0-32); Blood Urea Nitrogen 7 mg/dL (8-23); Calcium 8.4 mg/dL (8.5-10.5); Carbon Dioxide 26 mmol/L (22-29); Chloride 97 mmol/L (98-107); Globulin 5.9 g/dL (1.3-4.6); Glomerular Filtration Rate 82.7 mL/min (90-130); Glucose 90 mg/dL (65-115); Osmolality Calculated 272 mOsm/kg (285-295); Potassium 3.8 mmol/L (3.5-5.1); Sodium 132 mmol/L (136-145); Total Bilirubin 0.2 mg/dL (0.15-1.2); Total Protein 9.3 g/dL (6.6-8.7)
[2021-02-03 10:07] LABS: PROTEIN, TOTAL 9.4 g/dL (6.1-8.1)
[2021-02-03 13:43] LABS: ABNORMAL PROTEIN BAND 1 3.8 g/dL (NONE DETECTED); ALBUMIN 3.5 g/dL (3.8-4.8); ALPHA 1 GLOBULIN 0.4 g/dL (0.2-0.3); ALPHA 2 GLOBULIN 0.9 g/dL (0.5-0.9); BETA 1 GLOBULIN 0.5 g/dL (0.4-0.6); BETA 2 GLOBULIN 0.2 g/dL (0.2-0.5); GAMMA GLOBULIN 3.9 g/dL (0.8-1.7)
[2021-02-03 14:32] LABS: KAPPA LIGHT CHAIN, FREE, SERUM 430.5 mg/L (3.3-19.4); KAPPA/LAMBDA LIGHT CHAINS FREE 226.58 (0.26-1.65); LAMBDA LIGHT CHAIN, FREE, SERU 1.9 mg/L (5.7-26.3)
== END 2021-02-02 14:45 | disposition home or self-care (01) ==
LOC: ONCMED 14:46
PROVIDERS: PCP Internal Medicine; Visit Provider Internal Medicine Medical Oncology
DX: Z79.899 Other long term (current) drug therapy (principal)
CPT/HCPCS: 36591; 80053; 83883; 84155; 84165; 85025

== ENCOUNTER 2021-02-03 08:54 | Outpatient (CLI) | payer MEDICARE, SELFPAY ==
--- NOTE | 2021-02-03 12:35 | ONC FU_ITS ---
Dr. Sanchez Patient Follow-Up Note Patient: Karely Armenta Unit #: [id number]: [id number] Dicatated By: Sean Sanchez M.D.Date of Visit:Feb 03, 2021 Onc Med Follow-up/Prog Note Chief Complaint: Myeloma. History of Present Illness: This is a 70 year-old woman with IgG kappa myeloma. She was found to be moderately anemic in December 2016 when she was admitted to the hospital with pneumonia. She also reported having had an illness the preceding summer, in October or November, which may have been tick fever, but that was never confirmed. Her follow-up laboratory studies with Dr. Garcia on 05/03/2017 included CBC showing hemoglobin 11.9 g with white blood cell count 5100 and platelet count 155,000. Her sedimentation rate was significantly elevated at 94 mm/hour. The chem profile showed normal renal function with BUN 13 and creatinine 0.96 mg/dL. Calcium was normal at 9.0 mg/dL. Protein electrophoresis showed a monoclonal protein quantitating at 2.5 g/dL. Immunofixation showed an IgG kappa paraprotein measuring 2.87 g/dL. Hepatits screen was nonreactive to hepatitis C, hepatitis Bs antigen, and hepatitis B core total Ab referral. The hepatitis B surface antibody was < 3.10. LDH was normal at 149 U/L. The beta-2 microglobulin was slightly elevated at 0.420 mg/dL. I had seen her initially on 05/11/2017. Repeat protein electrophoresis with immunofixation prior to that visit, from 05/09/2017, showed IgG kappa monoclonal protein quantitating at 2.87 g/dL. The kappa light chain was elevated at 177.96 mg/L with lambda light chain 1.73 mg/L and kappa/lambda ratio elevated at 102. On her further evaluation there was no monoclonal protein detected in a 24-hour urine specimen. Skeletal survey on 05/11/2017 showed cervical and lumbar spondylosis and bilateral hip joint osteoarthritic changes. There was no radiographic evidence of multiple myeloma. She underwent bone marrow aspiration/biopsy on 05/17/2017. The cellularity was estimated at 70% with 32% plasma cells. Iron stores were noted to be absent. The FISH panel for myeloma showed gain of chromosome 1q, deletions of RB 1 and LAMP1, and gain of IG. The standard chromosome analysis was normal. Overall, the findings were consistent with plasma cell neoplasm/myeloma. Staging PET/CT on 06/03/2017 showed a single FDG avid osteolytic site in the T1 vertebral body which was felt to possibly represent multiple myeloma. She then had further evaluation with MRI of the spine on 07/12/2017. There were significant degenerative changes in the cervical spine which included moderate central canal stenosis at C4-C5, C5-C6, and C7 as well as bilateral nerve root encroachment at C5, C6, and C7. There were also degenerative changes in the lumbar spine with interval STIR signal abnormality and enhancement of T10-L5 spinous processes suggesting possible myelomatous changes. The thoracic spine showed subtle diffuse signal and enhancement abnormality involving the T1 vertebral body. In correlation with the PET/CT findings, this was felt to be suspicious for neoplastic process, including multiple myeloma. There were no actual lytic lesions identified. She began treatment with Velcade/Revlimid/dexamethasone in August 2017. She tolerated it rather poorly, and she did require treatment interruptions and dose reductions, but she idd show evidence for response. As of April 2018, during her 9th cycle, her M protein had declined to 0.84 g/dL. She continued with cycle 10 in May 2018. However, a repeat protein electrophoresis on 07/20/2018 showed an increase in the M protein to 1.4 g/dL. The free light chain assay showed and increase in the free kappa light chain to 83.8 mg/L with elevated kappa/lambda ratio at 28.90. In August 2018 she began second line treatment with Revlimid/ixazomib/dexamethasone. Due to her previous toxicities with Revlimid, it was initiated at a reduced dosage of 10 mg daily on a 21/28 day schedule with ixazomib dosed at 4 mg on days 18 and 15 and the dexamethasone dose at 40 mg weekly. She was able to tolerate it with acceptable toxicity. As of 05/06/2019 her treatment was put on hold due to persistent neutropenia. In May 2019 she had taken a trip to [place], and while she was there she became very ill and required treatment for pneumonia. She returned here for a follow-up visit in June. Her repeat protein electrophoresis on 07/02/2019 showed increase in the M protein to 2.0 g/dL. Her free light chain assay showed increased kappa light chain to 142 mg/L with lambda light chain 2.9 mg/L, and elevated kappa/lambda ratio at 49.38. Restaging PET/CT on 07/13/2019 showed stable findings in the T1 lesion with FDG activity no greater than that of marrow background, consistent with successfully treated disease. There was no evidence of any new lesions. However, with the significant increase in the M protein and in the kappa free light chain, she was recommended to proceed with 3rd line treatment with daratumumab in combination with carfilzomib and dexamethasone. Her baseline echocardiogram showed normal left ventricular function with ejection fraction estimated at 60%. She returned to begin cycle 1 of daratumumab/carfilzomib/dexamethasone on 08/12/2019. The initial infusion of daratumumab was administered in divided doses over 2 days. She tolerated the treatment well. However, her day 8 treatment was complicated by nausea and profuse diaphoresis, which she attributed to the daratumumab. She was able to complete her day 9 carfilzomib treatment. Her day 15/16 treatment was withheld due to a drop in her white blood cell count to 2000 with her ANC at 1000. She did not have fever or other complications. She was given her week 3 daratumumab the following week, but I did opt to split the dosage over 2 days. She tolerated it with no adverse effects. She continued with cycle 2 on 09/11/2019 with the carfilzomib administered at a reduced dosage and with the daratumumab administered in a split dosage. She continued to have anemia, moderately severe neutropenia, and mild thrombocytopenia, but she was able to tolerate the treatment with acceptable toxicity. As of 10/02/2019 the M protein had decreased to 1.1 g/dL. She proceeded with cycle 3 on 10/09/2019. At cycle 3-day 15, on 10/22/2019, her carfilzomib was omitted due to neutropenia, ANC 1400. She did receive her 8th weekly infusion of daratumumab, administered as a single infusion. At that time she also was complaining increased shortness of breath, and a CT pulmonary angiogram showed small filling defects in both the right and left secondary pulmonary arteries consistent with thromboembolic disease. Altered perfusion was seen in those areas. As it did appear to be clinically significant, she was started on anticoagulation with apixaban. She continued with her 4th cycle of treatment on 11/06/2019 with the daratumumab administered at 2-week intervals. At that point her M protein was stable at 1.2 g/dL. The serum free light chain assay, though, did show a decline in her free kappa light chain from 143.7 to 100.6 mg/L. She began cycle 5 on 12/04/2019. Her M protein was down slightly, to 1.1 g/dL. As of 01/01/2020 it had further declined to 0.9 g/dL. She continued with her 6th cycle of treatment, and she then continued with cycle 7 on 02/19/2020 and with cycle 8 on 03/18/2020. At that point her M protein has increased to 1.5 g/dL. In March she underwent a dental extraction/implant procedure. The procedure was complicated by persistent defect in her left upper gum/maxillary bone. She continued with cycle 9 of daratumumab/carfilzomib/dexamethasone on 04/15/2020. She then received a scheduled infusion of daratumumab on 05/12/2020. Her repeat protein electrophoresis at that time showed further increase in the M protein to 2.1 g/dL. Her treatment was put on hold. On 07/21/2020 she began further treatment with pomalidomide in combination with elotuzumab and dexamethasone. In view of the side effects she had experienced with lenalidomide, the pomalidomide was started at a reduced dosage (2 mg) administered on a 21/28-day schedule. She initially tolerated the treatment well at the reduced dosage of pomalidomide, and she continued with cycle 2 on 08/26/2020. Her repeat protein electrophoresis at that point had shown a slight decline in the M protein, to 2.0 g/dL. She continued with her cycle 2-day 8 treatment on 09/02/2020. However, at day 15 her treatment was put on hold due to a drop in her white blood cell count to 2500 with absolute neutrophil count 1000. Her blood counts were then monitored weekly. As of 10/15/2019 when her white blood cell count remained low at 2200 with absolute neutrophil count 700. Her repeat protein electrophoresis at that time showed increase in her M protein to 2.5 g/dL. Her free light chain assay showed elevated free kappa light chain at 248.6 mg/L with lambda light chain 2.2 mg/L and elevated kappa/lambda ratio at 113. At her follow-up visit on 10/21/2020 she was complaining of increased pain in the lower back area. Further evaluation with MRI of the lumbar spine on 11/30/2020 showed no evidence of enhancing myelomatous lesions. There was evidence of disc bulging which was worse at the L3-L4 and L4-L5 levels, slightly progressed compared to the previous study from 2018. There was no high-grade central canal stenosis. Tiny right subarticular protrusion was noted to impinge the traversing right L5 nerve root in the subarticular recess. There was mild right foraminal narrowing. There was also mild left L5-S1 bony foraminal narrowing. In the absence of any evidence of involvement with myeloma, she was referred to back to pain clinic for management of the back pain. She was seen for a follow-up visit on 12/30/2020. I had discussed some options for further treatment,, which I had hoped to be able to put off, as she had plans to move to [place] within the next 1 to 2 months. Her repeat protein electrophoresis, though, showed a significant further increase in the M protein to 3.4 g/dL. Her serum free light chain showed further increase in the free kappa light chain to 442.1 mg/L with free lambda light chain 2.0 mg/L and elevated kappa/lambda ratio at 221.05. With those findings, she returns now to initiate salvage therapy with belantamab mafodotin. Her other medical illnesses include hypertension, hyperlipidemia, coronary artery disease, hypothyroidism, GERD, fibromyalgia, degenerative arthritis, and anxiety/depression. Her surgical/procedural history includes coronary angioplasty/stent placement 2015. She has arthroscopic left knee surgery, and she also has had surgery on the right shoulder. She has history of smoking for 25 years, from 1-3 packs of cigarettes daily. She quit smoking in 1989. She has had just occasional alcohol use. She is Caodaism, and she will not accept blood products. INTERIM HISTORY: She began cycle 1 of belantamab mafodotin on 01/12/2021. The treatment was complicated by pretty severe nausea/vomiting. She had to come in on day 3 for IV fluids and IV antiemetics. On 01/29/2020 when she was seen in the emergency room for a dog bite injury to her left hand. She is seen now for a follow-up visit. She is feeling a little better generally, though she is tired and her activity is limited. She is still doing some light work. ECOG score is 1. She has good appetite now. She does not have fever or night sweats. She has had no change in vision or other ocular symptoms. She has not had sore mouth or throat. She does not complain of cough and she says her breathing is fine. She had 1 recent episode of mild chest pain, resolved with nitroglycerin. She currently is not having nausea, and her acid reflux is adequately managed. Bowel and bladder function have been okay. She has chronic back pain, which is the same. She has had a few headaches. She has been a little bit dizzy off and on and she has had a little bit of numbness in her hands. Medications: amLODIPine Besylate 1 Tablet (of 5 mg) Oral daily, Amoxicillin-Pot Clavulanate 1 Tablet (of 875-125 mg) Oral daily for 10 days, Body/Hair/Skin/Nails 2 Capsule Oral daily, Xeklyletms-IEQH-Oimn-Cod 1 (07-211-16-30 mg) Capsule Oral four times a day PRN, Hrvghwzlpw-MGGN-Wmonfcsr 1 Capsule (of 50-325-40 mg) Oral daily PRN, Cholecalciferol 2 (1000 Units) Capsule Oral daily, Curcumin 95 1 (500 mg) Capsule Oral daily PRN, Cymbalta 1 (60 mg) Capsule Delayed Release Particles Oral daily, Eliquis 1 Tablet (of 2.5 mg) Oral b.i.d., Flagyl 1 Tablet (of 500 mg) Oral daily, Furosemide 1 Tablet (of 20 mg) Oral daily PRN, Levothyroxine Sodium 1 (50 mcg) Tablet Oral daily, LORazepam 0.5 - 1 (1 mg) Tablet Oral q 4 hours PRN, Metoprolol Tartrate 1 Tablet (of 50 mg) Oral daily, Multivitamin Adult 1 Tablet Oral daily, Nitroglycerin 1 (400 mcg/spray) Aerosol, solution Translingual PRN, OxyCODONE HCl 1 (30 mg) Tablet Oral 5x/d PRN, Pantoprazole Sodium 1 Tablet (of 40 mg) Tablet, enteric coated Oral daily, Potassium Chloride ER 1 Tablet (of 10 meq) Tablet, controlled release Oral daily PRN, Pravastatin Sodium 1 (40 mg) Tablet Oral daily, Prochlorperazine Maleate 1 (10 mg) Tablet Oral four times a day PRN, QUEtiapine Fumarate 2 Tablet (of 25 mg) Oral at bedtime, Soma 1 (350 mg) Tablet Oral four times a day PRN Allergies: Codeine Sulfate, LevoFLOXacin, and Vicodin. Vital Signs: Performed on Feb 03, 2021 09:36 Height - 66.00 in Weight - 157.6 lbs (LOW) BSA - 1.81 sq.m BMI - 25.44 Temperature - 98.5 F Pulse - 82 /min Respiration - 18 /min BP - 165/75 mm(hg) (HIGH) O2 Sat - 97 % Pain - 6 Fatigue - 5 Physical Examination: Constitutional - She looks pretty good generally, Eyes - Sclerae nonicteric. Conjunctivae clear, ENMT - No lesions noted in the oral cavity, Hematologic/Lymphatic - No cervical, clavicular, or axillary adenopathy, Respiratory - Lungs are clear with good air movement bilaterally, Cardiovascular - Heart rhythm is regular. There is no murmur, gallop, or rub noted, Abdomen - Soft. Liver and spleen are not enlarged. There is no abdominal mass or ascites noted and there is no inguinal adenopathy, Extremities - No edema, Integumentary - There is a fairly large, superficial wound on the left hand which currently is wrapped, Neurologic - No focal neurologic deficits noted. Lab/Imaging: CBC shows hemoglobin 9.1 g, white blood cell count 3300, and platelet count 118,000. The absolute neutrophil count is 1000. Comprehensive metabolic profile shows stable renal function with BUN 7 and creatinine 0.7 mg/dL. Bilirubin and liver enzymes are normal. Her serum protein electrophoresis results are pending, but her calculated serum globulin remains elevated and unchanged at 5.9 g/dL Problem List: 1. IgG kappa myeloma. Bone marrow aspiration/biopsy on 05/17/2017 showed 32% plasma cells, consistent with myeloma. The FISH panel showed gain of chromosome 1q, deletions of RB 1 and LAMP1, and gain of IG. Her baseline M protein was 2.87 g/dL. She was mildly anemic and she had significantly elevated sedimentation rate. She had normal renal function and negative 24-hour urine protein electrophoresis. Skeletal survey showed no lytic bone involvement. PET/CT and MRI both showed findings suspicious for involvement of the T1 vertebral body. She was not overtly symptomatic with it. 2. Pulmonary emboli diagnosed by CT pulmonary angiogram in October 2019. She has been on anticoagulation with apixaban. 3. Hypertension. 4. Hyperlipidemia. 5. Coronary artery disease with angioplasty/stent placement in February 2016. 6. Hypothyroidism. 7. GERD. 8. Degenerative arthritis/degenerative disease of the spine. 9. Fibromyalgia. 10. Anxiety/depression. Problems Addressed with this Encounter and Plan: 1. Patient with IgG kappa myeloma, initially diagnosed in April 2017.. Her FISH panel showed gain of chromosome 1q, deletions of RB 1 and LAMP1, and gain of IG. Her baseline M protein was 2.87 g/dL. She was considered transplant ineligible due to being Caodaism and not willing to accept transfusion. Her myeloma therapy included: 1. 1st-line treatment with Revlimid/Velcade/dexamethasone from August 2017 through May 2018. She did show some response, but she tolerated it poorly, and she had required treatment interruptions and dose reductions. 2. 2nd line therapy with Revlimid/ixazomib/dexamethasone beginning in July 2018 and continued through April 2019. She again did have some response, but it was put on hold at that point due to persistent neutropenia. 3. 3rd line treatment with daratumumab/carfilzomib/dexamethasone from July thru April 2020. She again tolerated it rather poorly, requiring dose attenuations. Her treatment was complicated by pulmonary emboli for which she began on anticoagulation with apixaban. She did have evidence of response by M protein. However, since February 2020 there was a gradual increase in her M protein level and in her kappa/lambda ratio, so that she was again showing disease progression. 4. On 07/21/2020 she began on 4th line treatment with pomalidomide in combination with elotuzumab and dexamethasone, but with pomalidomide administered at a reduced dosage due to prior toxicities she had experienced with lenalidomide. She initially appeared to tolerate the treatment well, and she continued with cycle 2 on on 08/26/2020. At day 15 her treatment was put on hold due to drop in her neutrophil count to 1000. During followup she has had persistent neutropenia. Recently she had a further decline in her hemoglobin/hematocrit levels, and her platelet count has been slightly low. There was a progressive increase in her M protein and in her free kappa light chain, consistent with further progression of the myeloma. With limited options available, on 01/12/2021 she began a trial of salvage therapy with belantamab mafodotin. Her baseline M protein was 3.4 g/dL with free kappa light chain 442.1 mg/L. She had pretty severe nausea/vomiting for 2 days following that treatment, requiring IV hydration and IV antiemetics on day 3. She otherwise tolerated it pretty well. Her blood counts have remained stable. Her repeat protein electrophoresis studies are pending. She will proceed now with cycle 2 of belantamab mafodotin. She will be given a dose reduction due to the nausea/vomiting, and I will increase her antiemetic therapy. Blood counts will be monitored weekly. She will be scheduled for a follow-up visit in 2 weeks. However, she is planning to relocate to [facility] sometime in mid February, and I will begin arrangements to transition her care to the Hematology/Oncology division at [facility] in [place]. 2. Pulmonary emboli diagnosed by CT pulmonary angiogram in October 2019. She remains on anticoagulation with apixaban. 3. She continued to complain of significant low back pain. Based on her recent MRI, this appeared to be more likely due to underlying degenerative disease. It is being managed symptomatically. 4. She sustained a dog bite injury to her left hand on 01/28/2021. She is tentatively scheduled to have surgery on her left hand in [place] on Monday. Signed By: Sean Sanchez M.D. <<Signature on File>>
[2021-02-03] MEDS: fosaprepitant 150 MG in sodium chloride 0.9% 150 ML 300 MG IV (14:08)
[2021-02-03] MEDS: palonosetron 0.25 mg/5 mL SDV IV (14:35)
[2021-02-03] MEDS: diphenhydrAMINE 50 mg/mL SDV 1mL 25 MG IVP (15:20)
[2021-02-03] MEDS: acetaminophen 325 mg Tablet 650 MG PO (15:20)
[2021-02-03] MEDS: sodium chloride 0.9% 250 ML 75 ML IV (16:33)
== END 2021-02-03 08:55 | disposition home or self-care (01) ==
PROVIDERS: PCP Internal Medicine; Visit Provider Internal Medicine Medical Oncology
DX: Z51.12 Encounter for antineoplastic immunotherapy (principal); C90.00 Multiple myeloma not having achieved remission; Z86.711 Personal history of pulmonary embolism; Z79.01 Long term (current) use of anticoagulants; I10 Essential (primary) hypertension; E78.5 Hyperlipidemia, unspecified; I25.10 Atherosclerotic heart disease of native coronary artery without angina pectoris; E03.9 Hypothyroidism, unspecified; K21.9 Gastro-esophageal reflux disease without esophagitis; M47.9 Spondylosis, unspecified; M79.7 Fibromyalgia; Z79.899 Other long term (current) drug therapy; Z92.21 Personal history of antineoplastic chemotherapy
CPT/HCPCS: 96367; 96375; 96413; 99215; J1100; J1200; J1453; J2469; J7050; J9037

== ENCOUNTER 2021-02-18 11:43 | Outpatient (CLI) | payer MEDICARE, SELFPAY ==
[2021-02-18 12:30] LABS: Basophils % 0.8 %; Eosinophils % 1.1 %; Hematocrit 29.1 % (37.0-47.0); Hemoglobin 9.3 g/dL (11.5-15.3); Lymphocytes # 2.3 10^3/uL (0.8-4.8); Lymphocytes % 59.2 %; Mean Corpuscular Hemoglobin 30.1 pg (28.0-34.0); Mean Corpuscular Volume 94.2 fl (81-99); Mean Platelet Volume 9.8 fL (7.4-10.4); Monocytes # 0.5 10^3/uL (0.2-0.9); Monocytes % 12.4 %; Neutrophils # 1.01 10^3/uL (1.8-7.7); Neutrophils % 26.5 %; Nucleated Red Blood Cells % 0 %; Platelet Count 88 10^3/cmm (130-400); Red Blood Count 3.09 10^6/uL (4.1-5.3); Red Cell Distribution Width 16.6 % (12.1-15.1); White Blood Count 3.8 10^3/uL (4.0-10.0)
== END 2021-02-18 11:44 | disposition home or self-care (01) ==
LOC: ONCMED 11:45
PROVIDERS: Internal Medicine Medical Oncology; PCP Internal Medicine; Visit Provider Nurse Practitioner
DX: C90.00 Multiple myeloma not having achieved remission (principal); D47.2 Monoclonal gammopathy
CPT/HCPCS: 36591; 85025

== ENCOUNTER 2021-02-22 06:35 | Outpatient (CLI) | payer MEDICARE, SELFPAY ==
[2021-02-22 10:46] LABS: Basophils % 0.3 %; Eosinophils % 1.3 %; Hematocrit 28.1 % (37.0-47.0); Lymphocytes # 1.9 10^3/uL (0.8-4.8); Lymphocytes % 61.7 %; Mean Corpuscular Hemoglobin 30.7 pg (28.0-34.0); Mean Corpuscular Volume 95.9 fl (81-99); Mean Platelet Volume 10.7 fL (7.4-10.4); Monocytes # 0.3 10^3/uL (0.2-0.9); Monocytes % 10.1 %; Neutrophils % 26.6 %; Nucleated Red Blood Cells % 0 %; Platelet Count 94 10^3/cmm (130-400); Red Blood Count 2.93 10^6/uL (4.1-5.3); Red Cell Distribution Width 16.9 % (12.1-15.1); White Blood Count 3.1 10^3/uL (4.0-10.0)
[2021-02-22 11:24] LABS: Alanine Aminotransferase 6 U/L (0-33); Albumin Level 3.2 g/dL (3.5-5.2); Alkaline Phosphatase 70 IU/L (35-105); Aspartate Amino Transferase 12 U/L (0-32); Blood Urea Nitrogen 8 mg/dL (8-23); Calcium 8.7 mg/dL (8.5-10.5); Carbon Dioxide 26 mmol/L (22-29); Chloride 104 mmol/L (98-107); Globulin 6.4 g/dL (1.3-4.6); Glomerular Filtration Rate 82.7 mL/min (90-130); Glucose 97 mg/dL (65-115); Immunoglobulin IGA 50 mg/dL (70-400); Immunoglobulin IGG 4830 mg/dL (700-1600); Immunoglobulin IGM 25 mg/dL (40-230); Osmolality Calculated 282 mOsm/kg (285-295); Sodium 137 mmol/L (136-145); Total Bilirubin 0.2 mg/dL (0.15-1.2); Total Protein 9.6 g/dL (6.6-8.7)
[2021-02-22 11:34] LABS: Neutrophils # 0.82 10^3/uL (1.8-7.7)
[2021-02-23 14:24] LABS: KAPPA LIGHT CHAIN, FREE, SERUM 406.9 mg/L (3.3-19.4); KAPPA/LAMBDA LIGHT CHAINS FREE 214.16 (0.26-1.65); LAMBDA LIGHT CHAIN, FREE, SERU 1.9 mg/L (5.7-26.3)
[2021-02-24 11:12] LABS: PROTEIN, TOTAL 9.3 g/dL (6.1-8.1)
[2021-02-25 11:42] LABS: ABNORMAL PROTEIN BAND 1 3.9 g/dL (NONE DETECTED); ALBUMIN 3.4 g/dL (3.8-4.8); ALPHA 1 GLOBULIN 0.4 g/dL (0.2-0.3); ALPHA 2 GLOBULIN 0.8 g/dL (0.5-0.9); BETA 1 GLOBULIN 0.5 g/dL (0.4-0.6); BETA 2 GLOBULIN 0.2 g/dL (0.2-0.5)
== END 2021-02-22 06:36 | disposition home or self-care (01) ==
LOC: ONCMED 06:35
PROVIDERS: Visit Provider Internal Medicine Medical Oncology
DX: C90.00 Multiple myeloma not having achieved remission (principal); I10 Essential (primary) hypertension; E78.5 Hyperlipidemia, unspecified; I25.10 Atherosclerotic heart disease of native coronary artery without angina pectoris
CPT/HCPCS: 36591; 80053; 82784; 83883; 84155; 84165; 85025

== ENCOUNTER 2021-02-23 06:34 | Outpatient (CLI) | payer MEDICARE, SELFPAY ==
--- NOTE | 2021-02-23 19:16 | ONC FU_ITS ---
Dr. Sanchez Patient Follow-Up Note Patient: Karely Armenta Unit #: [id number]: [id number] Dicatated By: Sean Sanchez M.D.Date of Visit:Feb 23, 2021 Onc Med Follow-up/Prog Note Chief Complaint: Myeloma. History of Present Illness: This is a 70 year-old woman with IgG kappa myeloma. She was found to be moderately anemic in December 2016 when she was admitted to the hospital with pneumonia. She also reported having had an illness the preceding summer, in October or November, which may have been tick fever, but that was never confirmed. Her follow-up laboratory studies with Dr. Garcia on 05/03/2017 included CBC showing hemoglobin 11.9 g with white blood cell count 5100 and platelet count 155,000. Her sedimentation rate was significantly elevated at 94 mm/hour. The chem profile showed normal renal function with BUN 13 and creatinine 0.96 mg/dL. Calcium was normal at 9.0 mg/dL. Protein electrophoresis showed a monoclonal protein quantitating at 2.5 g/dL. Immunofixation showed an IgG kappa paraprotein measuring 2.87 g/dL. Hepatits screen was nonreactive to hepatitis C, hepatitis Bs antigen, and hepatitis B core total Ab referral. The hepatitis B surface antibody was < 3.10. LDH was normal at 149 U/L. The beta-2 microglobulin was slightly elevated at 0.420 mg/dL. I had seen her initially on 05/11/2017. Repeat protein electrophoresis with immunofixation prior to that visit, from 05/09/2017, showed IgG kappa monoclonal protein quantitating at 2.87 g/dL. The kappa light chain was elevated at 177.96 mg/L with lambda light chain 1.73 mg/L and kappa/lambda ratio elevated at 102. On her further evaluation there was no monoclonal protein detected in a 24-hour urine specimen. Skeletal survey on 05/11/2017 showed cervical and lumbar spondylosis and bilateral hip joint osteoarthritic changes. There was no radiographic evidence of multiple myeloma. She underwent bone marrow aspiration/biopsy on 05/17/2017. The cellularity was estimated at 70% with 32% plasma cells. Iron stores were noted to be absent. The FISH panel for myeloma showed gain of chromosome 1q, deletions of RB 1 and LAMP1, and gain of IG. The standard chromosome analysis was normal. Overall, the findings were consistent with plasma cell neoplasm/myeloma. Staging PET/CT on 06/03/2017 showed a single FDG avid osteolytic site in the T1 vertebral body which was felt to possibly represent multiple myeloma. She then had further evaluation with MRI of the spine on 07/12/2017. There were significant degenerative changes in the cervical spine which included moderate central canal stenosis at C4-C5, C5-C6, and C7 as well as bilateral nerve root encroachment at C5, C6, and C7. There were also degenerative changes in the lumbar spine with interval STIR signal abnormality and enhancement of T10-L5 spinous processes suggesting possible myelomatous changes. The thoracic spine showed subtle diffuse signal and enhancement abnormality involving the T1 vertebral body. In correlation with the PET/CT findings, this was felt to be suspicious for neoplastic process, including multiple myeloma. There were no actual lytic lesions identified. She began treatment with Velcade/Revlimid/dexamethasone in August 2017. She tolerated it rather poorly, and she did require treatment interruptions and dose reductions, but she idd show evidence for response. As of April 2018, during her 9th cycle, her M protein had declined to 0.84 g/dL. She continued with cycle 10 in May 2018. However, a repeat protein electrophoresis on 07/20/2018 showed an increase in the M protein to 1.4 g/dL. The free light chain assay showed and increase in the free kappa light chain to 83.8 mg/L with elevated kappa/lambda ratio at 28.90. In August 2018 she began second line treatment with Revlimid/ixazomib/dexamethasone. Due to her previous toxicities with Revlimid, it was initiated at a reduced dosage of 10 mg daily on a 21/28 day schedule with ixazomib dosed at 4 mg on days 18 and 15 and the dexamethasone dose at 40 mg weekly. She was able to tolerate it with acceptable toxicity. As of 05/06/2019 her treatment was put on hold due to persistent neutropenia. In May 2019 she had taken a trip to [place], and while she was there she became very ill and required treatment for pneumonia. She returned here for a follow-up visit in June. Her repeat protein electrophoresis on 07/02/2019 showed increase in the M protein to 2.0 g/dL. Her free light chain assay showed increased kappa light chain to 142 mg/L with lambda light chain 2.9 mg/L, and elevated kappa/lambda ratio at 49.38. Restaging PET/CT on 07/13/2019 showed stable findings in the T1 lesion with FDG activity no greater than that of marrow background, consistent with successfully treated disease. There was no evidence of any new lesions. However, with the significant increase in the M protein and in the kappa free light chain, she was recommended to proceed with 3rd line treatment with daratumumab in combination with carfilzomib and dexamethasone. Her baseline echocardiogram showed normal left ventricular function with ejection fraction estimated at 60%. She returned to begin cycle 1 of daratumumab/carfilzomib/dexamethasone on 08/12/2019. The initial infusion of daratumumab was administered in divided doses over 2 days. She tolerated the treatment well. However, her day 8 treatment was complicated by nausea and profuse diaphoresis, which she attributed to the daratumumab. She was able to complete her day 9 carfilzomib treatment. Her day 15/16 treatment was withheld due to a drop in her white blood cell count to 2000 with her ANC at 1000. She did not have fever or other complications. She was given her week 3 daratumumab the following week, but I did opt to split the dosage over 2 days. She tolerated it with no adverse effects. She continued with cycle 2 on 09/11/2019 with the carfilzomib administered at a reduced dosage and with the daratumumab administered in a split dosage. She continued to have anemia, moderately severe neutropenia, and mild thrombocytopenia, but she was able to tolerate the treatment with acceptable toxicity. As of 10/02/2019 the M protein had decreased to 1.1 g/dL. She proceeded with cycle 3 on 10/09/2019. At cycle 3-day 15, on 10/22/2019, her carfilzomib was omitted due to neutropenia, ANC 1400. She did receive her 8th weekly infusion of daratumumab, administered as a single infusion. At that time she also was complaining increased shortness of breath, and a CT pulmonary angiogram showed small filling defects in both the right and left secondary pulmonary arteries consistent with thromboembolic disease. Altered perfusion was seen in those areas. As it did appear to be clinically significant, she was started on anticoagulation with apixaban. She continued with her 4th cycle of treatment on 11/06/2019 with the daratumumab administered at 2-week intervals. At that point her M protein was stable at 1.2 g/dL. The serum free light chain assay, though, did show a decline in her free kappa light chain from 143.7 to 100.6 mg/L. She began cycle 5 on 12/04/2019. Her M protein was down slightly, to 1.1 g/dL. As of 01/01/2020 it had further declined to 0.9 g/dL. She continued with her 6th cycle of treatment, and she then continued with cycle 7 on 02/19/2020 and with cycle 8 on 03/18/2020. At that point her M protein has increased to 1.5 g/dL. In March she underwent a dental extraction/implant procedure. The procedure was complicated by persistent defect in her left upper gum/maxillary bone. She continued with cycle 9 of daratumumab/carfilzomib/dexamethasone on 04/15/2020. She then received a scheduled infusion of daratumumab on 05/12/2020. Her repeat protein electrophoresis at that time showed further increase in the M protein to 2.1 g/dL. Her treatment was put on hold. On 07/21/2020 she began further treatment with pomalidomide in combination with elotuzumab and dexamethasone. In view of the side effects she had experienced with lenalidomide, the pomalidomide was started at a reduced dosage (2 mg) administered on a 21/28-day schedule. She initially tolerated the treatment well at the reduced dosage of pomalidomide, and she continued with cycle 2 on 08/26/2020. Her repeat protein electrophoresis at that point had shown a slight decline in the M protein, to 2.0 g/dL. She continued with her cycle 2-day 8 treatment on 09/02/2020. However, at day 15 her treatment was put on hold due to a drop in her white blood cell count to 2500 with absolute neutrophil count 1000. Her blood counts were then monitored weekly. As of 10/15/2019 when her white blood cell count remained low at 2200 with absolute neutrophil count 700. Her repeat protein electrophoresis at that time showed increase in her M protein to 2.5 g/dL. Her free light chain assay showed elevated free kappa light chain at 248.6 mg/L with lambda light chain 2.2 mg/L and elevated kappa/lambda ratio at 113. At her follow-up visit on 10/21/2020 she was complaining of increased pain in the lower back area. Further evaluation with MRI of the lumbar spine on 11/30/2020 showed no evidence of enhancing myelomatous lesions. There was evidence of disc bulging which was worse at the L3-L4 and L4-L5 levels, slightly progressed compared to the previous study from 2018. There was no high-grade central canal stenosis. Tiny right subarticular protrusion was noted to impinge the traversing right L5 nerve root in the subarticular recess. There was mild right foraminal narrowing. There was also mild left L5-S1 bony foraminal narrowing. In the absence of any evidence of involvement with myeloma, she was referred to back to pain clinic for management of the back pain. She was seen for a follow-up visit on 12/30/2020. I had discussed some options for further treatment,, which I had hoped to be able to put off, as she had plans to move to [place] within the next 1 to 2 months. Her repeat protein electrophoresis, though, showed a significant further increase in the M protein to 3.4 g/dL. Her serum free light chain showed further increase in the free kappa light chain to 442.1 mg/L with free lambda light chain 2.0 mg/L and elevated kappa/lambda ratio at 221.05. With those findings, she returns now to initiate salvage therapy with belantamab mafodotin. Her other medical illnesses include hypertension, hyperlipidemia, coronary artery disease, hypothyroidism, GERD, fibromyalgia, degenerative arthritis, and anxiety/depression. Her surgical/procedural history includes coronary angioplasty/stent placement 2015. She has arthroscopic left knee surgery, and she also has had surgery on the right shoulder. She has history of smoking for 25 years, from 1-3 packs of cigarettes daily. She quit smoking in 1989. She has had just occasional alcohol use. She is Caodaism, and she will not accept blood products. INTERIM HISTORY: She began cycle 1 of belantamab mafodotin on 01/12/2021. The treatment was complicated by pretty severe nausea/vomiting. She had to come in on day 3 for IV fluids and IV antiemetics. On 01/29/2020 when she was seen in the emergency room for a dog bite injury to her left hand. She continued with cycle 2 on 02/03/2021. It was administered with a dose reduction. She is seen for a follow-up visit. She has been feeling tired. She is able to do light work. Her ECOG score is 1. She has good appetite. She has no fever or night sweats. She has no shortness of breath, cough, or chest pain. She has no GI or complaints. She complains that her back is still a mess. She has minor headaches. She occasionally gets lightheaded. She has no numbness/paresthesia or other focal neurologic symptoms. Medications: amLODIPine Besylate 1 Tablet (of 5 mg) Oral daily, Amoxicillin-Pot Clavulanate 1 Tablet (of 875-125 mg) Oral daily for 10 days, Body/Hair/Skin/Nails 2 Capsule Oral daily, Hegotjqhbp-KJJF-Rtto-Cod 1 (32-878-51-30 mg) Capsule Oral four times a day PRN, Yxcglccave-OOGE-Sdchwrmw 1 Capsule (of 50-325-40 mg) Oral daily PRN, Cholecalciferol 2 (1000 Units) Capsule Oral daily, Curcumin 95 1 (500 mg) Capsule Oral daily PRN, Cymbalta 1 (60 mg) Capsule Delayed Release Particles Oral daily, Eliquis 1 Tablet (of 2.5 mg) Oral b.i.d., Flagyl 1 Tablet (of 500 mg) Oral daily, Furosemide 1 Tablet (of 20 mg) Oral daily PRN, Levothyroxine Sodium 1 (50 mcg) Tablet Oral daily, LORazepam 0.5 - 1 (1 mg) Tablet Oral q 4 hours PRN, Metoprolol Tartrate 1 Tablet (of 50 mg) Oral daily, Multivitamin Adult 1 Tablet Oral daily, Nitroglycerin 1 (400 mcg/spray) Aerosol, solution Translingual PRN, OxyCODONE HCl 1 (30 mg) Tablet Oral 5x/d PRN, Pantoprazole Sodium 1 Tablet (of 40 mg) Tablet, enteric coated Oral daily, Potassium Chloride ER 1 Tablet (of 10 meq) Tablet, controlled release Oral daily PRN, Pravastatin Sodium 1 (40 mg) Tablet Oral daily, Prochlorperazine Maleate 1 (10 mg) Tablet Oral four times a day PRN, QUEtiapine Fumarate 2 Tablet (of 25 mg) Oral at bedtime, Soma 1 (350 mg) Tablet Oral four times a day PRN Allergies: Codeine Sulfate, LevoFLOXacin, and Vicodin. Vital Signs: Performed on Feb 23, 2021 10:54 Height - 66.00 in Weight - 154.8 lbs (LOW) BSA - 1.79 sq.m BMI - 24.99 Temperature - 97.4 F (LOW) Pulse - 81 /min Respiration - 18 /min BP - 146/74 mm(hg) (HIGH) O2 Sat - 96 % Pain - 8 Fatigue - 7 Physical Examination: Constitutional - She looks pretty good generally, Eyes - Sclerae nonicteric. Conjunctivae clear, ENMT - No lesions noted in the oral cavity, Hematologic/Lymphatic - No cervical, clavicular, or axillary adenopathy, Respiratory - Lungs are clear with good air movement bilaterally, Cardiovascular - Heart rhythm is regular. There is no murmur, gallop, or rub noted, Abdomen - Soft. Liver and spleen are not enlarged. There is no abdominal mass or ascites noted and there is no inguinal adenopathy, Extremities - No edema, Neurologic - No focal neurologic deficits noted. Lab/Imaging: Test performed on Feb 22, 2021 09:50 Sodium 137 mmol/L Potassium 4.0 mmol/L Chloride 104 mmol/L CO2 26 mmol/L Anion Gap 11.0 BUN 8 mg/dL Creatinine 0.7 mg/dL Cr Clearance (Est) 87.6100 mL/min eGFR 82.7 mL/min Glucose 97 mg/dL Osmolality - Calculated 282 mOsm/kg Calcium 8.7 mg/dL Protein, Total 9.6 g/dL Albumin 3.2 g/dL Globulin 6.4 g/dL Bilirubin, Total 0.2 mg/dL ALT (SGPT) 6 U/L AST (SGOT) 12 U/L Alkaline Phosphatase 70 IU/L WBC 3.1 10 3/uL RBC 2.93 10 6/uL HGB 9.0 g/dL HCT 28.1 % MCV 95.9 fl MCH 30.7 pg MCHC 32.0 g/dL RDW 16.9 % Platelet Count 94 10 3/cmm MPV 10.7 fL Neutrophils 0.82 10 3/uL Lymphocytes 1.9 10 3/uL Monocytes 0.3 10 3/uL Eosinophils 0.0 10 3/uL Basophils 0.0 10 3/uL Neutrophil % 26.6 % Lymphocyte % 61.7 % Monocyte % 10.1 % Eosinophil % 1.3 % Basophils % 0.3 % NRBC % 0 % IgA 50 mg/dL Problem List: 1. IgG kappa myeloma. Bone marrow aspiration/biopsy on 05/17/2017 showed 32% plasma cells, consistent with myeloma. The FISH panel showed gain of chromosome 1q, deletions of RB 1 and LAMP1, and gain of IG. Her baseline M protein was 2.87 g/dL. She was mildly anemic and she had significantly elevated sedimentation rate. She had normal renal function and negative 24-hour urine protein electrophoresis. Skeletal survey showed no lytic bone involvement. PET/CT and MRI both showed findings suspicious for involvement of the T1 vertebral body. She was not overtly symptomatic with it. 2. Pulmonary emboli diagnosed by CT pulmonary angiogram in October 2019. She has been on anticoagulation with apixaban. 3. Hypertension. 4. Hyperlipidemia. 5. Coronary artery disease with angioplasty/stent placement in February 2016. 6. Hypothyroidism. 7. GERD. 8. Degenerative arthritis/degenerative disease of the spine. 9. Fibromyalgia. 10. Anxiety/depression. Problems Addressed with this Encounter and Plan: 1. Patient with IgG kappa myeloma, initially diagnosed in April 2017.. Her FISH panel showed gain of chromosome 1q, deletions of RB 1 and LAMP1, and gain of IG. Her baseline M protein was 2.87 g/dL. She was considered transplant ineligible due to being Caodaism and not willing to accept transfusion. Her myeloma therapy included: 1. 1st-line treatment with Revlimid/Velcade/dexamethasone from August 2017 through May 2018. She did show some response, but she tolerated it poorly, and she had required treatment interruptions and dose reductions. 2. 2nd line therapy with Revlimid/ixazomib/dexamethasone beginning in July 2018 and continued through April 2019. She again did have some response, but it was put on hold at that point due to persistent neutropenia. 3. 3rd line treatment with daratumumab/carfilzomib/dexamethasone from July thru April 2020. She again tolerated it rather poorly, requiring dose attenuations. Her treatment was complicated by pulmonary emboli for which she began on anticoagulation with apixaban. She did have evidence of response by M protein. However, since February 2020 there was a gradual increase in her M protein level and in her kappa/lambda ratio, so that she was again showing disease progression. 4. On 07/21/2020 she began on 4th line treatment with pomalidomide in combination with elotuzumab and dexamethasone, but with pomalidomide administered at a reduced dosage due to prior toxicities she had experienced with lenalidomide. She initially appeared to tolerate the treatment well, and she continued with cycle 2 on on 08/26/2020. At day 15 her treatment was put on hold due to drop in her neutrophil count to 1000. During followup she has had persistent neutropenia. Recently she had a further decline in her hemoglobin/hematocrit levels, and her platelet count has been slightly low. There was a progressive increase in her M protein and in her free kappa light chain, consistent with further progression of the myeloma. With limited options available, on 01/12/2021 she began a trial of salvage therapy with belantamab mafodotin. Her baseline M protein was 3.4 g/dL with free kappa light chain 442.1 mg/L. She had pretty severe nausea/vomiting for 2 days following that treatment, requiring IV hydration and IV antiemetics on day 3. Her blood counts remained stable. She continued with cycle 2 on 02/03/2021. It was administered with a dose reduction. She tolerated that treatment much better, and overall she is still feeling pretty well generally. Her repeat protein electropheresis is pending. On the study prior to cycle 2 the M protein had increased slightly, to 3.8 g/dL. If there is any further increase, the belantamab mafodotin will be stopped. In any case, she will be relocating to [place], [place] before the end of this month. I will make arrangements for her followup there. 2. Pulmonary emboli diagnosed by CT pulmonary angiogram in October 2019. She remains on anticoagulation with apixaban. 3. She continued to complain of significant low back pain. Based on her recent MRI, this appeared to be more likely due to underlying degenerative disease. It is being managed symptomatically. 4. She sustained a dog bite injury to her left hand on 01/28/2021. It is being managed conservatively. Signed By: Sean Sanchez M.D. <<Signature on File>>
== END 2021-02-23 06:35 | disposition home or self-care (01) ==
LOC: ONCMED 06:35
PROVIDERS: Visit Provider Internal Medicine Medical Oncology
DX: C90.00 Multiple myeloma not having achieved remission (principal); Z86.711 Personal history of pulmonary embolism; Z79.01 Long term (current) use of anticoagulants; I10 Essential (primary) hypertension; E78.5 Hyperlipidemia, unspecified; I25.10 Atherosclerotic heart disease of native coronary artery without angina pectoris; E03.9 Hypothyroidism, unspecified; K21.9 Gastro-esophageal reflux disease without esophagitis; M47.9 Spondylosis, unspecified; M79.7 Fibromyalgia; Z79.899 Other long term (current) drug therapy; Z92.21 Personal history of antineoplastic chemotherapy
CPT/HCPCS: 99214